=== PATIENT | male | born 1950 | race Caucasian/White ===

== ENCOUNTER 2023-05-29 07:26 | Outpatient (OUT) | payer MEDICARE, OTHER, SELFPAY ==
--- NOTE | 2023-05-29 | PCN_ITS ---
CARDIAC STRESS TEST Requesting Physician:? Francesco Harvey M.D. Procedure Date:? 05/29/2023 PERFORMING PHYSICIAN:? Dank Castillo M.D. INDICATION:? Dyspnea on exertion, atrial fibrillation. STRESS TEST PROTOCOL:? Lexiscan stress test. RESTING HEART RATE:? 79 MAX HEART RATE:? 107 RESTING BLOOD PRESSURE:? 140/82 MAX BLOOD PRESSURE:? 144/82 RESTING EKG:? Abnormal, atrial fibrillation, incomplete right bundle branch block, non-specific ST and T changes. CONCLUSIONS: 1.? Baseline EKG is abnormal.? Patient is noted to be in atrial fibrillation with incomplete right bundle branch block and non-specific ST and T changes. 2.? No definite EKG changes meeting the criteria for ischemia post Lexiscan infusion. 3.? Please refer to separately interpreted and reported myocardial perfusion imaging. [facility]
--- NOTE | 2023-05-29 07:40 | NM_ITS ---
Patient: VINAYAK ANN Exam Date: 05/29/2023 : 1950 Gender:M Ordering : DR NICOLETTE VALDEZ M.D. Admission #: [id number] Family : DR BRADEN HICKMAN M.D. Order #: [id number] CLICK HERE TO VIEW EXAM RADIOLOGY REPORT PROCEDURE: NM YAMILE PERF SPECT REST STR COMPARISON: None. INDICATIONS: Shortness of breath TECHNIQUE: Exam Description: Stress/Rest one day protocol gated SPECT Rest Imagin.1 mCi Tc-99m Cardiolite IV on 05/29/2023 Stress Imaging 30.3 mCi Tc-99m Cardiolite IV on 05/29/2023 Exercise Protocol: 0.4 mg Lexiscan given IV Heart Rate (bpm): Rest: 79 Max: 107 PMHR: 72 Blood Pressure: Rest: 140/82 Max: 144/82 Symptoms: Rest and peak stress ECG findings were normal and the exercise portion of the study was normal per attending physician Dr. Castillo . For more details please see separate cardiac stress test report. FINDINGS: QUALITY OF STUDY: Good. PERFUSION DEFECT: LOCATION: Basal inferior. Mid-inferior. [place]. SIZE: Medium (3-4 segments). SEVERITY: Mild. TYPE: Persistent. WALL MOTION: Normal. LV SIZE: Normal. 98 mL. TID / TCD: None; 0.9 LVEF: Normal. Calculated EF 64%. SUMMARY: Myocardial perfusion imaging study has ABNORMAL findings. CONCLUSION: 1. Moderate size area of mild to moderate decreased uptake on stress images in the inferior wall stable on rest imaging. Fixed defect versus diaphragmatic attenuation artifact 2. No reversible ischemia 3. Normal exercise test Dictated by: Bruno Burton MD on 05/30/2023 at 09:52 Approved by: Bruno Burton MD on 05/30/2023 at 09:54
[2023-05-29] MEDS: REGADENOSON 0.4 MG/5 ML SYRINGE IV (09:26)
--- NOTE | 2023-05-29 11:24 | CA_ITS ---
Patient: VINAYAK ANN. Exam Date: 05/29/2023 : 1950 Gender:M Ordering : DR NICOLETTE HARVEY M.D. Admission #: [id number] Family : DR BRADEN HICKMAN M.D. Order #: [id number] CLICK HERE TO VIEW EXAM ECHOCARDIOGRAM REPORT PROCEDURE: CA ECHO DOPPLER COMPLETE INDICATIONS: Atrial fibrillation, shortness of breath, hypertension COMPARISON: None. DESCRIPTION: COMPLETE ECHOCARDIOGRAM Real-time transthoracic echocardiography with 2D, M-mode, spectral and color flow Doppler performed. QUALITY: Technical quality was good. LEFT VENTRICLE: Normal chamber size. Mild concentric left ventricular hypertrophy. Normal systolic function. LV EF: Normal left ventricular ejection fraction, (55%). DIASTOLIC: Not adequately assessed due to heart rhythm. ATRIAL SEPTUM: LEFT ATRIUM: Moderate dilatation. RIGHT ATRIUM: Moderate dilatation. RIGHT VENTRICLE: Mild dilatation. Normal right ventricular systolic function. TRICUSPID VALVE: Normal mobility and thickness. No stenosis with trivial regurgitation. Doppler studies reveal mildly (35-45) elevated right sided pressures. RVSP 42 mmHg MITRAL VALVE: Normal mobility and thickness. No evidence of mitral valve stenosis. There is no mitral annular calcification. Mild mitral regurgitation. AORTIC VALVE: Normal trileaflet appearance. Mildly calcified aortic valve. Normal leaflet mobility. No evidence of aortic valve stenosis. No aortic regurgitation. AORTIC ROOT: Normal diameter and appearance. PULMONIC VALVE: Normal thickness and mobility. No stenosis. Mild regurgitation. PERICARDIUM: No evidence of pericardial effusion. IVC: Not well visualized. PLEURA: CONCLUSION: 1. Mild concentric left ventricular hypertrophy with normal systolic function. LVEF is 55%. 2. Mildly dilated right ventricle with normal systolic function. 3. Moderate biatrial dilatation. 4. Mild mitral regurgitation. 5. Mildly elevated right-sided pressures. Adult Echocardiography Procedure Report Left Ventricle LVEDD (3.7 - 5.6 cm): 5.66 cm LVESD (2.2 - 4.0 cm): 3.90 cm LVIVS thickness (0.6 - 1.2 cm): 1.26 cm LVPW thickness (0.5 - 1.0 cm): 1.16 cm e': 0.10 m/s E - e': 9.67 LVOT Max Gradient: 0.73 mm[Hg] LVOT Area (cm2): 0.43 m/s Peak Velocity (LVOT): 0.43 m/s LVOT Diameter 2.54 cm Left Atrium LA Volume Index (2D A2C): 45.19 ml/m2 Left Atrium Systolic Dimension: 4.97 cm Mitral Valve MV E to A Ratio: 3.01 Mitral Valve A-Wave Peak Velocity: 0.31 m/s Mitral Valve E-Wave Peak Velocity: 0.94 m/s Right Ventricle Aorta AO Root Diam: 4.00 cm Ascending Ao Diam: 3.03 cm Aortic Valve AoV Area (Peak Elan): 1.98 cm2, 1.98 cm2 Peak Velocity(Antegrade Flow): 1.10 m/s Peak Gradient(Antegrade Flow): 4.80 mm[Hg] Tricuspid Valve Peak Velocity (Regurgitant Flow): 2.88 m/s, 2.92 m/s Pulmonic Valve Peak Velocity: 0.83 m/s Peak Gradient: 2.62 mm[Hg], 2.95 mm[Hg] Right Atrium Right Atrium Systolic Pressure: 57.62 ml, 57.62 ml Dictated by: Nicolette Harvey M.D. on 05/30/2023 at 18:46 Approved by: Nicolette Harvey M.D. on 05/30/2023 at 18:49
== END 2023-05-29 07:27 | disposition home or self-care (01) ==
LOC: NM 07:29
PROVIDERS: PCP Internal Medicine; Visit Provider Internal Medicine Interventional Cardiology
DX: I48.0 Paroxysmal atrial fibrillation (principal); R06.02 Shortness of breath; I45.10 Unspecified right bundle-branch block; R94.39 Abnormal result of other cardiovascular function study; I34.0 Nonrheumatic mitral (valve) insufficiency; I51.7 Cardiomegaly
CPT/HCPCS: 78452; 93017; 93306; A9500; J2785

== ENCOUNTER 2023-10-12 07:58 | Outpatient (OUT) | payer MEDICARE, OTHER, SELFPAY ==
[2023-10-12 08:36] LABS: Basophils Absolute Auto 0.1 10^3/uL (0.0-0.1); Basophils Percent Auto 0.9 % (0.2-2.0); Eosinophils Absolute Auto 0.2 10^3/uL (0.0-0.7); Eosinophils Percent Auto 2.3 % (0.9-7.0); Immature Granulocytes Abs Auto 0.01 10^3/uL (0.00-0.03); Immature Granulocytes Pct Auto 0.2 % (0.0-0.5); Lymphocytes Absolute Auto 1.6 10^3/uL (1.2-3.8); Mean Corpuscular Hemoglobin 30.1 pg (25.9-34.0); Mean Corpuscular Volume 94.2 fL (80.0-94.0); Mean Platelet Volume 9.8 fL (9.5-13.5); Monocytes Absolute Auto 0.7 10^3/uL (0.3-0.8); Monocytes Percent Auto 11.1 % (1.7-12.0); Neutrophils Percent Auto 61.5 % (43.0-75.0); Platelet Count 252 10^3/uL (150-450); Red Blood Count 5.31 10^6/uL (4.70-6.10); Red Cell Distribution Width 13.4 % (11.0-15.0); White Blood Count 6.5 10^3/uL (4.0-11.0)
[2023-10-12 09:32] LABS: BUN Creatinine Ratio 12.2; Calcium 8.8 mg/dL (8.5-10.1); Carbon Dioxide 23.4 mmol/L (21.0-32.0); Chloride 106 mmol/L (98-107); Estimated GFR (African America 57 (>=60); Estimated GFR (Non-African Ame 47 (>=60); Glucose 139 mg/dL (74-106); Magnesium 2.3 mg/dL (1.8-2.4); Potassium 4.4 mmol/L (3.5-5.1); Sodium 141 mmol/L (136-145)
== END 2023-10-12 07:59 | disposition home or self-care (01) ==
LOC: LAB 08:01
PROVIDERS: PCP Internal Medicine; Visit Provider Internal Medicine Cardiovascular Disease
DX: I48.91 Unspecified atrial fibrillation (principal)
CPT/HCPCS: 36415; 80048; 83735; 85025

== ENCOUNTER 2023-12-20 07:56 | Outpatient (OUT) | payer MEDICARE, OTHER, SELFPAY ==
--- OUTSIDE RECORDS SUMMARY | 2023-12-20 07:58 | XMS_ITS | CCD ---
Author Name Unknown Address [address] [place] [address] Organization [facility] Care Team Providers Care Csr Name Role Phone PHYSICIAN, DEFAULT Unavailable Unavailable PHYSICIAN, DEFAULT Unavailable Unavailable PHYSICIAN, DEFAULT Unavailable Unavailable PHYSICIAN, DEFAULT Unavailable Unavailable SUGAR CORRALESA Admitting Unavailable BELÉN CORRALES Attending Unavailable VICK, DR FELICIANO Primary Care Unavailable JARROD, DR MODE Souza Consulting Unavailable BELÉN CORRALES Consulting Unavailable SUZANNA, RAMON Admitting Unavailable RAMON BRISENO Attending Unavailable VICK, DR FELICIANO Primary Care Unavailable COHOCTON, DR LUIS MANUEL [place]rbina Consulting Unavailable SUZANNARAMON Consulting Unavailable DARREN MCMULLEN Attending Unavailable BRADEN HICKMAN Attending Unavailable MEHUL, PANTERA Attending Unavailable MEHUL, PANTERA Attending Unavailable MEHUL, PANTERA Admitting Unavailable MEHUL, PANTERA Attending Unavailable MEHUL, PANTERA Referring Unavailable MOUKARBNICOLETTE SMITH Attending Unavailable Allergies Allergy Classification Reported Allergen(s) Allergy Type Date of Onset Reaction(s) Facility (2 sources) Penicillins; Translations: [PENICILLINS] Drug allergy (disorder) 12-27-2020 [facility] Repository Problems Active Problems Problem Classification Problem Date Documented Da te Episodic/Chronic Aortic; peripheral; and visceral artery aneurysms (4 sources) Abdominal aortic aneurysm, without rupture; Translations: [ABDOMINAL AORTIC ANEUR W/O RUPTURED] Onset: 01-14-2022 Chronic Cardiac dysrhythmias (2 sources) Paroxysmal atrial fibrillation; Translations: [Paroxysmal atrial fibrillation] Onset: 12-04-2022 Chronic Disorders of lipid metabolism (2 sources) Mixed hyperlipidemia; Translations: [Mixed hyperlipidemia] Onset: 12-04-2022 Chronic Essential hypertension (2 sources) Essential (primary) hypertension; Translations: [Essential (primary) hypertension] Onset: 05-22-2023 Chronic Unclassified (3 sources) ABDOMINAL AA W/O RUPTURE UNSPCIFIED; Translations: [ABDOMINAL AA W/O RUPTURE UNSPCIFIED] Onset: 01-08-2023 Unclassified (2 sources) Longstanding persistent atrial fibrillation; Translations: [Longstanding persistent atrial fibrillation] Onset: 09-17-2023 Past or Other Problems Problem Classification Problem Date Documented Da te Episodic/Chronic Other lower respiratory disease (2 sources) Shortness of breath; Translations: [Shortness of breath] Onset: 05-22-2023 Episodic Residual codes; unclassified (2 sources) Localized edema; Translations: [Localized edema] Onset: 05-22-2023 Episodic Unclassified (1 source) ABDOMINAL AA W/O RUPTURE UNSPCIFIED; Translations: [ABDOMINAL AA W/O RUPTURE UNSPCIFIED] Onset: 12-27-2022 Results Test Name Value Interpretation Reference Range Facility Prep for Procedureon 024 Prep for Procedure [id number]/03/1950 Provider Department Center 12/12/2023 Krishna-CLAIRE ARTEAGA [facility] V[facility] LAB ID [facility] Family History Problem Relation Age of Onset Heart attack Father Coronary artery disease Father Coronary artery disease Brother Stroke Brother Family Status - Relation Status Age at Father Brother Normal [facility] Office Visiton 12-11-2023 Follow-up visit [id number]/03/1950 Provider Department Center 12/11/2023 241-PANTERA TOMLIN LUZ [facility] Family History Problem Relation Age of Onset Heart attack Father Coronary artery disease Father Coronary artery disease Brother Stroke Brother Family Status - Relation Status Age at Father Brother Level of Service:45440 UT OFFICE/OUTPATIENT ESTABLISHED HIGH MDM 40 MIN Normal [facility] Orders Onlyon 12-11-2023 Orders Only [id number] 1950 Provider Department Center 12/11/2023 ISMAEL BOLES LUZ MAR[facility] Family History Problem Relation Age of Onset Heart attack Father Coronary artery disease Father Coronary artery disease Brother Stroke Brother Family Status - Relation Status Age at Father Brother Normal [facility] Orders Onlyon 10-08-2023 Orders Only [id number]/03/1950 M Date Provider Department Center 10/08/2023 SHEILA EDEN [facility] Family History Problem Relation Age of Onset Heart attack Father Coronary artery disease Father Coronary artery disease Brother Stroke Brother Family Status - Relation Status Age at Father Brother [facility] Telemedicineon 09-11-2023 Telemedicine [id number] Vinayak Madrigal 1950 M Date Provider Department Center 09/11/2023 PANTERA ORTEGA LUZ MARIA Vel[facility] Family History Problem Relation Age of Onset Heart attack Father Coronary artery disease Father Coronary artery disease Brother Stroke Brother Family Status - Relation Status Age at Father Brother Level of Service:27411 UT PHYS/QHP TELEPHONE EVALUATION 11-20 MIN [facility] 36on 06-03-2023 36 Please tell him the echo and stress test from 05/29/2023 were ok. Please refer him to Dr Pantera Tomlin for consideration of AF ablation. [facility] Telephoneon 06-03-2023 Telephone [id number] Vinayak Madrigal 1950 M Date Provider Department Center 06/03/2023 NICOLETTE PETERS LUZ MARIA Velazquez Family History Problem Relation Age of Onset Heart attack Father Coronary artery disease Father Coronary artery disease Brother Stroke Brother Family Status - Relation Status Age at Father Brother [facility] Office Visiton 05-22-2023 Follow-up visit [id number] Bonilla 1950 M Date Provider Department Center 05/22/2023 NICOLETTE PETERS LUZ MARIA eVlazquez Family History Problem Relation Age of Onset Heart attack Father Coronary artery disease Father Coronary artery disease Brother Stroke Brother Family Status - Relation Status Age at Father Brother Level of Service:68136 UT OFFICE/OUTPATIENT ESTABLISHED MOD MDM 30-39 MIN Reason for Visit and Comments: Follow-up [294935] - 6 month follow up [facility] US ABD AORTA DIAGNOSTICon US ABD AORTA DIAGNOSTIC EXAM: US ABD AORTA DIAGNOSTIC HISTORY: Abdominal aortic aneurysm without rupture. TECHNIQUE: Ultrasound was performed of the abdominal aorta. COMPARISON: Ultrasound abdominal aorta 01/14/2022 FINDINGS: AORTA: Fusiform dilation of the distal aorta, 3.0 cm in diameter. OTHER: Mild dilation of common iliac arteries, 2.1 cm on right, 1.8 cm on left. IMPRESSION: 1. Stable fusiform aneurysmal dilation of infrarenal aorta, 3.0 cm. 2. 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 Electronically authenticated by: MODE GARAY Date: 2022-12-27 15:45 Normal [facility] 36on 12-20-2022 36 Pt did not have bps will call back january 03 Normal [facility] US ABD AORTA DIAGNOSTICon US ABD AORTA DIAGNOSTIC EXAMINATION: US ABD AORTA DIAGNOSTIC HISTORY: Abdominal aortic aneurysm without rupture COMPARISON: No relevant comparison available. TECHNIQUE: Ultrasound examination of the retroperitoneal area was performed, with a focused evaluation of the abdominal aorta. FINDINGS: Extensive diffuse soft and calcific atherosclerotic plaque with small fusiform distal aortic aneurysm Proximal aorta: 2.4 x 2.8 cm Mid aorta: 2.1 x 2.3 cm Distal aorta: 2.9 x 3.0 cm Right common iliac artery: 2.2 x 2.3 cm Left common iliac artery: 2.0 x 2.5 cm IMPRESSION: Moderate diffuse atherosclerosis with fusiform distal aortic aneurysm measuring 3.0 cm Electronically authenticated by: LUIS MANUEL MCCORMICK Date: 2022-01-16 07:21 Normal [facility] Coding Summary.on 02-12-2019 Coding Summary. CODING DATE: 02/12/2019 FINAL [facility] STATUS: Home (Routine DC) PAYOR: Medicare APC DESCRIPTION 5374 Level 4 Urology and Related Services ADMIT DX: REASON FOR VISIT DX: N40.1 Benign prostatic hyperplasia with lower urinary tract symptoms FINAL DX: PRINCIPAL: N40.1 Benign prostatic hyperplasia with lower urinary tract symptoms SECONDARY: R35.0 Frequency of micturition R35.1 Nocturia R39.12 Poor urinary stream N39.43 Post-void dribbling I10 Essential (primary) hypertension I48.91 Unspecified atrial fibrillation E11.9 Type 2 diabetes mellitus without complications 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 However, the narrative phrase printed from the coding software may appear abbreviated, or result in slightly different terminology. Coded By: Analia Le Date Saved: 02/12/2019 12:49 pm Normal [facility] Main OR Intraoperative Recor romaine 02-06-2019 Main OR Intraoperative Record IntraOp Document Type FTURO Summary Primary Physician: Eric Elizabeth Jr., MD Finalized Date/Time: 02/06/19 14:00:49 Pt. Name: VINAYAK MADRIGAL Logan /Sex: 1950 Male Med Rec #: [id number] Physician: Eric Elizabeth Jr., MD Financial #: [id number] Pt. Type: O Room/Bed: / Admit/Disch: 02/06/19 12:31:57 - Institution: Case Times FTURO Entry 1 Patient Times In Room 02/06/19 13:43:00 Out Room 02/06/19 14:02:00 Procedure Times Start 02/06/19 13:47:00 Stop 02/06/19 13:56:00 Anesthesia Times Last Modified By: Nathaly TEJADA, MELYOR, Jessica 02/06/19 14:00:08 Case Attendance FTURO Entry 1 Entry 2 Entry 3 Case Attendee Eric Elizabeth Jr., MD RN, CNOR, Watha CST, Ping Lopez Role Performed Surgeon - Primary Diamond Cleaver - Primary Scrub - Primary Time In 02/06/19 13:43:00 02/06/19 13:43:00 02/06/19 13:43:00 Time Out 02/06/19 14:02:00 02/06/19 14:02:00 02/06/19 14:02:00 Procedure CYSTOSCOPY LOCAL CYSTOSCOPY LOCAL CYSTOSCOPY LOCAL REZUM(.) REZUM(.) REZUM(.) Comments Last Modified By: Nathaly RN, CNOR, Nathaly RN, MELYOR, Nathaly RN, MELYOR, Jessica 02/06/19 Jessica 02/06/19 Jessica 02/06/19 14:00:09 14:00:09 14:00:09 Surgical Procedures FTURO Entry 1 Procedure Description Procedure CYSTOSCOPY LOCAL REZUM Modifiers . Surgeon Description cysto with rezum Primary Procedure Yes Primary Surgeon Eric Elizabeth Jr., MD Start 02/06/19 13:47:00 Stop 02/06/19 13:56:00 Anesthesia Type Local Surgical Service Urology Wound Class 2 - Clean-Contaminated Last Modified By: DREW Andersen RN, Ruthann 02/06/19 14:00:11 General Case Data FTURO Pre-Care Text: Classifies surgical wound, implements aseptic technique, initiates traffic control Entry 1 Case Information OR URO 1 FT Case Level None Wound Class 2 - Clean-Contaminated Specialty Urology Preop Diagnosis BPH WITH LUTS Postop Same As Preop Yes Postop Diagnosis BPH WITH LUTS Outcomes Met? Yes Last Modified By: DREW Andersen RN, Ruthann 02/06/19 12:40:38 Post-Care Text: The patient is free from signs and symptoms of infection EU IntraOp - FTURO Pre-Care Text: Implements protective measures prior to operative or invasive procedure, confirms identity before the operative or invasive procedure, verifies operative procedure, surgical site, and laterality Entry 1 EU Perioperative Protocols Procedure(s) CYSTOSCOPY LOCAL Patient Identity Birthday, ID Band REZUM(.) Verified (select at Check, Patient least 2): Participation Consents / H and P HandP, Surgery/Procedure Operative Site N/A Verified Consent Marking Verified Surgical Site Yes Laterality Verified n/a Verified Procedure Verified Yes Correct Patient Yes Position Verified Availability Equipment, Medication Time Out Glenn Hoyt MD, Eric Nguyen, Verified (If Participants DREW Andersen RN, Applicable) Ana Lopez CST, Ping Flores Time Out Complete 02/06/19 13:46:00 Allergies Reviewed? Yes Allergies Reviewed Self/Patient With Body Position Low Lithotomy Prep Area penis Prep Agents Betadine Solution Skin. Condition Unable to Visualize Additional None Specimens Collected Vitals - EU Blood Pressure Pulse Respirations SPO2 EBL 0 IandO - EU Total Intake 0 mL Total Output 0 mL Outcomes Met? Yes Last Modified By: DREW Andersen RN, Ruthann 02/06/19 13:49:15 Post-Care Text: The patient is free from signs and symptoms of injury caused by extraneous objects Case Comments Finalized By: DREW Andersen RN, Ruthann Document Signatures Signed By: DREW Andersen RN, Ruthann 02/06/19 14:00 DREW Andersen RN, Ruthann 02/06/19 14:00 Normal [facility] Main OR Preoperative Recordo n 02-06-2019 Main OR Preoperative Record Holding Area Document Type FTURO Summary Primary Physician: Eric Elizabeth Jr., MD Finalized Date/Time: 02/06/19 13:49:45 Pt. Name: VINAYAK MADRIGAL /Sex: 1950 Male Med Rec #: [id number] Physician: Eric Elizabeth Jr., MD Financial #: [id number] Pt. Type: O Room/Bed: / Admit/Disch: 02/06/19 12:31:57 - Institution: Case Times Holding FTURO Pre-Care Text: Verifies consent for planned procedure, identifies individual values and wishes concerning care, includes family members in perioperative teaching Secures patient's records' belongings, and valuables, maintains patient's dignity and privacy, and maintains patient confidentiality Entry 1 In Holding 02/06/19 12:47:00 Outcomes Met? Yes Last Modified By: Sharon Lawler LPN 02/06/19 12:47:20 Post-Care Text: The patient participates in decisions affecting his or her perioperative plan of care The patient's right to privacy is maintained Surgery Checklist FTURO Entry 1 Patient Birthday, ID Band Procedure History and Physical, Identification: Check, Patient Verification: Surgical Consent, With Participation Patient NPO after Midnight: n/a Personal Items: Dentures, Glasses, Jewelry Personal Items watch, ring Complaints of Pain: No Comment: Skin Integrity Intact, [place], Warm, & Dry Vitals - EU Blood Pressure 124/74 Pulse 60 bpm Respirations 18 br/min SPO2 RN Reviewed Yes Last Modified By: DREW Andersen RN, Ruthann 02/06/19 13:49:43 Finalized By: DREW Andersen RN, Ruthann Document Signatures Signed By: Sharon Lawler LPN 02/06/19 12:50 DREW Andersen RN, Ruthann 02/06/19 13:49 Normal [facility] Operative Reporton 9 Operative Report Patient: VINAYAK MADRIGAL Age: 68 years Sex: Male : 1950 Associated Diagnoses: None Author: Eric Elizabeth Jr., MD Procedure Operative Information Details: Date/ Time: 02/06/19 13:57:00. Pre-Op Dx: BPH w/ LUTS - N40.1. Post-Op Dx: Same. Anesthesia Type: Local. Procedure: REZUM ablation of the prostate. Complications: None. Risks/Benefits/Inform ed Consent: Surgical risks, benefits, details of the procedure have been explained to the patient, Full informed consent has been obtained. Indications: The patient has BPH with LUTS and presents for the REZUM trans-urethral water vapor ablation of the prostate, He understands the risks, benefits, details of this procedure including but not limited to bleeding, infection, continued difficulties urinating, blood in the semen, pain during urination, increased urinary frequency, Despite these risks, among others, he wishes to proceed. Intraoperative Information Prepped: The patient is brought back to the operative suite, The patient is placed in the supine position, 10 cc of 2% viscous Xylocaine jelly prior to the catheterization, The bladder is catheterized with a 16 Fr straight catheter, 60 cc of 1% xylocaine solution is instilled followed by 10 cc of 2% viscous Xylocaine jelly, After waiting approximately 20 minutes, he is positioned in the modified dorso-lithotomy position and prepped in the usual fashion, The 30-degree cystoscope lens is placed, The anterior urethra, membranous urethra, and prostatic urethra is visualized. Procedure: The bladder demonstrates no tumor or stones, 5 targeted treatments were delivered to the prostate, staying at least 1 cm from the bladder neck, Each location is treated for 9 seconds, per protocol, 4 treatments were given into the lateral lobes by 1 cm, 1 treatments administered to the median lobe, The bladder is again inspected and is free of injury and is clear of blood clots, A Darnell catheter is placed, the balloon inflated, and leg bag attached. Specimens Removed: None. Devices Implanted: None. Postoperative Information Discharge: The patient tolerates the procedure well and is discharged home in satisfactory condition, Discharge instructions are provided. Normal [facility] Comment on above: Result Comment: Elec tronically Signed By: Glenn Hoyt MD, Eric Nguyen\.nataliya\Date and Time Signed: 02/06/19 13:57 EDT Encounters Encounter Date Encounter Type Care Provider Facility Start: 12-11-2023 End: 12-11-2023 [facility] Start: 11-20-2023 End: 11-20-2023 ambulatory DARREN Brito BENEDICT Not Available Start: 10-15-2023 End: 10-15-2023 ambulatory [facility] Start: 09-20-2023 End: 09-20-2023 ambulatory BRADEN HICKMAN Not Available Start: 09-11-2023 End: 09-11-2023 ambulatory [facility] Start: 05-22-2023 End: 05-22-2023 ambulatory NICOLETTE VALDEZ [facility] Start: 12-27-2022 End: 12-28-2022 ambulatory BELÉN CORRALES Facility:[facility] Start: 01-14-2022 End: 01-15-2022 ambulatory RAMON BRISENO Facility:[facility] Start: 07-15-2018 End: 07-16-2018 Patient encounter DEFAULT PHYSICIAN Facility[facility] Start: 06-11-2018 End: 06-12-2018 Patient encounter DEFAULT PHYSICIAN [facility] Payers Date Payer Category Payer [employer] ( and others) [id number] 1959 Medicare [id number] 1950 Unknown [id number] 1950 Unknown [id number] 1950 Unknown [id number] 1950 Unknown [id number] Unknown Progress note 12-11-2023 Note Date & Type Note Facility 12-11-2023 Note ID Electrophysiology Consult Note Reason for visit: Afib 12/11/23 patient was loaded with amiodarone and subsequently brought for cardioversion on 10/15/2023 but he was noted to be in sinus rhythm. Today he is back in atrial flutter with varying ventricular rate EKG 12/11/2023 flutter with very ventricular rate Prior HPI: Vinayak Madrigal is a 73 y.o. 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 Pt feels tired. Not DCCV before. Of late, he noticed fatigue which has been progressive. No acute CP. PMH: Past Medical History: Diagnosis Date Aneurysm (CMS/HCC) Atrial fibrillation (CMS/HCC) Diabetes mellitus (CMS/HCC) Hyperlipidemia Hypertension PSH: Past Surgical History: Procedure Laterality Date APPENDECTOMY SINUS SURGERY VASECTOMY SH: Social Determinants of Health Tobacco Use: Medium Risk (10/17/2023) Patient History Smoking Tobacco Use: Former Smokeless Tobacco Use: Never Passive Exposure: Not on file Alcohol Use: Not on file Financial Resource Strain: Not on file Food Insecurity: Not on file Transportation Needs: Not on file Physical Activity: Not on file Stress: Not on file Social Connections: Not on file Intimate Partner Violence: Not on file Depression: Not on file Housing Stability: Not on file Utilities: Not on file Allergies: Allergies Allergen Reactions Penicillins Rash and Unknown Weight: 109kg Visit Vitals BP 129/87 (BP Location: Left arm, Patient Position: Sitting) Pulse 88 Ht 1.829 m (6') Wt 109 kg (240 lb) SpO2 94% BMI 32.55 kg/m??? Smoking Status Former BSA 2.35 m??? Meds: Current Outpatient Medications on File Prior to Visit Medication Sig Dispense Refill amiodarone (Pacerone) 200 mg tablet Take 2 tablets (400 mg) by mouth in the morning and at bedtime for 14 days, THEN 1 tablet (200 mg) in the morning. (Patient taking differently: 200mg daily) 116 tablet 0 amLODIPine-benazepriL (Lotrel) 10-20 mg capsule Take 1 capsule by mouth in the morning. apixaban (Eliquis) 5 mg tablet Take 5 mg by mouth in the morning and at bedtime. atorvastatin (Lipitor) 40 mg tablet Take 1 tablet (40 mg) by mouth in the morning. 90 tablet 3 carvedilol (Coreg) 12.5 mg tablet Take 1 tablet by mouth with breakfast and with evening meal. celecoxib (CeleBREX) 200 mg capsule Take 200 mg by mouth in the morning. As needed fluticasone (Flonase) 50 mcg/actuation nasal spray Administer 50 sprays into each nostril in the morning. glimepiride (Amaryl) 2 mg tablet Take 2 mg by mouth 2 times daily. linagliptin-metformin (Jentadueto XR) 2.5-1,000 mg tablet, IR - ER, biphasic 24hr Jentadueto XR 2.5 mg-1,000 mg tablet, extended release multivitamin with minerals tablet Take 1 tablet by mouth in the morning. No current facility-administered medications on file prior to visit. ROS: Review of Systems Constitutional: Positive for malaise/fatigue and night sweats. Respiratory: Positive for cough. Musculoskeletal: Positive for muscle weakness. Neurological: Positive for excessive daytime sleepiness ( sometimes ) and light-headedness. All other systems reviewed and are negative. Physical Exam: Constitutional General Appearance: well-nourished, well-developed, appears stated age Level of Distress: comfortable Psychiatric Mental Status: alert, normal affect Orientation: oriented to time, place, and person Insight: good judgement Eyes Lids and Conjunctivae: non-injected, no xanthelasma ENMT Ears: no lesions on external ear Nose: no lesions on external nose Oropharynx: no cyanosis, no pallor Neck Neck: supple, trachea midline Carotid Arteries: bilateral normal upstroke, no bruits Jugular Veins: normal jugular venous pressure Thyroid: not enlarged Lungs Respiratory Effort: unlabored Chest Exam: normal curvature, no thoracic deformity Auscultation: clear, no wheezing, no rales, no rhonchi Cardiovascular Rate And Rhythm: regular Heart Sounds: normal S1, normal s2, no gallop Systolic Murmur: not heard Diastolic Murmur: not heard Extremities: no cyanosis, no edema, no peripheral signs of emboli Peripheral Pulses Radial Pulse: normal Abdomen Inspection and Palpation: soft, non distended, no bruit, non tender Musculoskeletal Inspection: no joint swelling Neurologic Gait: normal gait Skin Inspection and Palpation: warm and dry Nails: no clubbing Labs: @LABRESULTS@ No results found for: CHOLESTEROL TOTAL , HDL , LDL CALC , LDL DIRECT , TRIGLYCERIDES , TSH , T3 TOTAL , T4 TOTAL , THYROID PEROXIDASE AB , BNP EKG: Encounter Date: 10/15/23 Electrocardiogram, 12-lead Result Value Ventricular Rate 81 Atrial Rate 81 UT Interval 202 QRS DURATION 114 QT Interval 436 QTC CALCULATION(BAZETT) 506 P Burney 51 R-Burney 0 T Wave Burney 38 Impression Sinus rhythm with occasional Premature ventricular (more content not included)... [facility] Clinical Note 10-15-2023 Note Date & Type Note Facility 10-15-2023 Note EKG completed and pt in NSR. Dr. Tomlin cancelled procedure. [facility] Progress note 09-11-2023 Note Date & Type Note Facility 09-11-2023 Note [facility] Electrophysiology Consult Note Reason for visit: Afib Date of Telehealth Visit: 09/11/2023 The patient was notified that using 3rd alliance party telecommunication application (e.g., [employer]) is not HIPPA compliant and may carry some privacy risks. Yes The visit was conducted [id number] with the use of audio and video technology [email or web address] between patient and provider for a virtual visit. Verbal consent to provide and bill this service was obtained on 09/11/2023. No signature was obtained due to the COVID-19 pandemic. Patient Location: Patient Home I spent 15 minutes of total time on the day of the visit. This time was spent preparing for the visit, obtaining and reviewing any outside history/data, taking a history, performing an exam/evaluation, counseling and educating patient/family about the diagnosis and plan, performing medical decision making, referring to and communicating with other health care referrals, independently interpreting results and documenting in the EMR, and coordinating care. Please see the additional documentation in this note for specific details. There are no diagnoses linked to this encounter. HPI: Vinayak Madrigal is a 73 y.o. 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 Pt feels tired. Not DCCV before. Of late, he noticed fatigue which has been progressive. No acute CP. PMH: Past Medical History: Diagnosis Date Aneurysm (CMS/HCC) Atrial fibrillation (CMS/HCC) Diabetes mellitus (CMS/HCC) Hyperlipidemia Hypertension PSH: Past Surgical History: Procedure Laterality Date APPENDECTOMY SINUS SURGERY VASECTOMY SH: Social Determinants of Health Tobacco Use: Medium Risk (05/22/2023) Patient History Smoking Tobacco Use: Former Smokeless Tobacco Use: Never Passive Exposure: Not on file Alcohol Use: Not on file Financial Resource Strain: Not on file Food Insecurity: Not on file Transportation Needs: Not on file Physical Activity: Not on file Stress: Not on file Social Connections: Not on file Intimate Partner Violence: Not on file Depression: Not on file Housing Stability: Not on file Allergies: Allergies Allergen Reactions Penicillins Rash and Unknown Weight: No weight available Visit Vitals Smoking Status Former Meds: Current Outpatient Medications on File Prior to Visit Medication Sig Dispense Refill amLODIPine-benazepriL (Lotrel) 10-20 mg capsule Take 1 capsule by mouth in the morning. apixaban (Eliquis) 5 mg tablet Take 5 mg by mouth in the morning and at bedtime. atorvastatin (Lipitor) 40 mg tablet Take 1 tablet (40 mg) by mouth in the morning. 90 tablet 3 carvedilol (Coreg) 12.5 mg tablet Take 1 tablet by mouth with breakfast and with evening meal. celecoxib (CeleBREX) 200 mg capsule As needed fluticasone (Flonase) 50 mcg/actuation nasal spray Administer 50 sprays into each nostril in the morning. FreeStyle Lancets 28 gauge FreeStyle Lite Strips strip linagliptin-metformin (Jentadueto XR) 2.5-1,000 mg tablet, IR - ER, biphasic 24hr Jentadueto XR 2.5 mg-1,000 mg tablet, extended release multivitamin with minerals tablet Take 1 tablet by mouth in the morning. No current facility-administered medications on file prior to visit. ROS: Cardio Basic Cardiovascular Symptoms: no lightheadedness, no leg edema, no syncope, no orthopnea, no PND, no claudication, Constitutional Constitutional: no fever, no night sweats, no significant weight gain, no significant weight loss, no exercise intolerance Eyes Eyes: no dry eyes, no irritation, no vision change ENMT Ears: no difficulty hearing, no ear pain Nose: no frequent nosebleeds, Mouth/Throat: no sore throat, no bleeding gums, no snoring, no dry mouth, no mouth ulcers, no oral abnormalities, no teeth problems Respiratory Respiratory: no cough, no wheezing, no coughing up blood, no sleep apnea Musculoskeletal Musculoskeletal: no muscle aches, no muscle weakness, joint pain+, no back pain, no swelling in the extremities Integumentary Skin no rash, no ulcer, no varicosities, no discoloration, no pruritus Neurologic Neurologic: no loss of consciousness, no weakness, no numbness, no seizures, no dizziness, no headaches Psychiatric Psych: no depression, feeling safe in relationship, no alcohol abuse, Hematologic/Lymphatic Hematologic/Lymphatic no swollen glands, no bruising Physical Exam: Labs: @LABRESULTS@ No results found for: CHOLESTEROL TOTAL, HDL, LDL CALC, LDL DIRECT, TRIGLYCERIDES, TSH, T3 TOTAL, T4 TOTAL, THYROID PEROXIDASE AB, BNP, BNP, BNP EKG: No results found for this or any previous visit (from the past 4464 hour(s)). Echo: Stress test: Coronary angiogram: @CATH@ Diagnostic Imaging: No images are attached to the encounter. Assessment and Plan: - Persistent AF: Given pt has not been offered DCCV, will try to load with Amio and then (more content not included)... [facility] Progress note 05-22-2023 Note Date & Type Note Facility 05-22-2023 Note ID Cardiology - [facility] Subjective Vinayak Madrigal is a 72 y.o. year old male patient being seen for Follow-up (6 month follow up ) Patient Active Problem List Diagnosis Allergic rhinitis due to allergen Atrial fibrillation (CMS/HCC) Benign essential hypertension Cardiac arrhythmia Cardiomegaly Chronic pansinusitis Cervical spondylosis Cervical radiculopathy Diabetes mellitus (CMS/HCC) Diastasis of muscle Diastolic dysfunction Displacement of cervical intervertebral disc Dysmetabolic syndrome X Hyperglycemia due to type 2 diabetes mellitus (CMS/HCC) Impingement syndrome of shoulder region Mixed hyperlipidemia Pure hypercholesterolemia Urinary hesitancy Ventricular premature beats Type 2 diabetes mellitus without complication (CMS/HCC) Benign prostatic hyperplasia without urinary obstruction Family History Problem Relation Name Age of Onset Heart attack Father Coronary artery disease Father Coronary artery disease Brother Stroke Brother Social History Tobacco Use Smoking status: Former Types: Cigarettes Smokeless tobacco: Never Substance Use Topics Alcohol use: Not Currently HPI he is seen in follow-up. He has prior history of paroxysmal atrial fibrillation, hypertension, obstructive sleep apnea and diabetes. He has no chest pain. He has dyspnea on exertion NYHA class II, his major complaint is fatigue and inability to do physical activity as needed. No leg swelling. No palpitations. He has occasional dizziness. He is on carvedilol 12.5 mg bid (was given an extra 6.25 mg bid for better control of blood pressure but he's not taking it). Review of Systems Constitutional: Positive for malaise/fatigue and night sweats. Respiratory: Positive for cough and shortness of breath. Musculoskeletal: Positive for muscle cramps and muscle weakness. Neurological: Positive for excessive daytime sleepiness, dizziness, light-headedness and loss of balance. All other systems reviewed and are negative. Objective Visit Vitals BP 131/75 (BP Location: Left arm, Patient Position: Sitting, BP Cuff Size: Large adult) Pulse 77 Wt 109 kg (240 lb 9.6 oz) SpO2 97% BMI 32.63 kg/m??? Smoking Status Former BSA 2.35 m??? Physical Exam Constitutional: Appearance: He is well-developed. He is not ill-appearing. HENT: Head: Normocephalic and atraumatic. Nose: Nose normal. Eyes: General: No scleral icterus. Pupils: Pupils are equal, round, and reactive to light. Neck: Thyroid: No thyromegaly. Vascular: No JVD. Cardiovascular: Rate and Rhythm: Normal rate. Rhythm irregularly irregular. Pulses: Radial pulses are 2+ on the right side and 2+ on the left side. Heart sounds: Normal heart sounds. No murmur heard. No friction rub. No gallop. Pulmonary: Effort: Pulmonary effort is normal. No respiratory distress. Breath sounds: Normal breath sounds. No wheezing or rales. Chest: Chest wall: No tenderness. Abdominal: General: Bowel sounds are normal. There is no distension. Palpations: Abdomen is soft. Tenderness: There is no abdominal tenderness. Musculoskeletal: General: No swelling. Cervical back: Neck supple. Right lower le+ Pitting Edema present. Left lower le+ Pitting Edema present. Skin: General: Skin is warm and dry. Neurological: General: No focal deficit present. Mental Status: He is alert and oriented to person, place, and time. Psychiatric: Mood and Affect: Mood normal. Behavior: Behavior is cooperative. Judgment: Judgment normal. Allergies Allergies Allergen Reactions Penicillins Rash and Unknown Medications Current Outpatient Medications: amLODIPine-benazepriL (Lotrel) 10-20 mg capsule, Take 1 capsule by mouth in the morning., Disp: , Rfl: apixaban (Eliquis) 5 mg tablet, Take 5 mg by mouth in the morning and at bedtime., Disp: , Rfl: carvedilol (Coreg) 12.5 mg tablet, Take 1 tablet by mouth with breakfast and with evening meal., Disp: , Rfl: celecoxib (CeleBREX) 200 mg capsule, As needed, Disp: , Rfl: fluticasone (Flonase) 50 mcg/actuation nasal spray, Administer 50 sprays into each nostril in the morning., Disp: , Rfl: FreeStyle Lancets 28 gauge, , Disp: , Rfl: FreeStyle Lite Strips strip, , Disp: , Rfl: linagliptin-metformin (Jentadueto XR) 2.5-1,000 mg tablet, IR - ER, biphasic 24hr, Jentadueto XR 2.5 mg-1,000 mg tablet, extended release, Disp: , Rfl: multivitamin with minerals tablet, Take 1 tablet by mouth in the morning., Disp: , Rfl: atorvastatin (Lipitor) 40 mg tablet, Take 1 tablet (40 mg) by mouth in the morning., Disp: 90 tablet, Rfl: 3 Recent Labs Labs 08/2022 CBC - unremarkable CMP - Cr. 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 Stable mild aneurysmal dilation of c (more content not included)... [facility] Summary Purpose Family History No Family History Records FoundNo Family History Records FoundNo Family History Records FoundNo Family History Records FoundNo Family History Records Found Advance Directives No Advanced Directives Records FoundNo Advanced Directives Records FoundNo Advanced Directives Records FoundNo Advanced Directives Records FoundNo Advanced Directives Records Found Additional Source Comments (unrecognized sect ion and content) No Status Records FoundNo Status Records FoundNo Status Records FoundNo Status Records FoundNo Status Records Found INFORMATION SOURCE (unrecogn ized section and content) DATE CREATED AUTHOR 07/30/2018 [facility] DATE CREATED AUTHOR AUTHOR'S ORGANIZ ATION 05/31/2019 [facility] DATE CREATED AUTHOR AUTHOR'S ORGANIZ ATION 01/10/2023 [facility] DATE CREATED AUTHOR AUTHOR'S ORGANIZ ATION 11/21/2023 [facility] DATE CREATED AUTHOR AUTHOR'S ORGANIZ ATION 12/17/2023 [facility] FOR RECORDS PERTAINING TO PATIENTS WHO ARE OR HAVE BEEN ENROLLED IN A CHEMICAL DEPENDENCY/SUBSTANCEABUSE PROGRAM, SOME INFORMATION MAY BE OMITTED. This clinical summary was aggregated from multiple sources. Caution should be exercised in using it in the provision of clinical care. This summary normalizes information from multiple sources, and as a consequence, information in this document may materially change the coding, format and clinical context of patient data. In addition, data may be omitted in some cases. CLINICAL DECISIONS SHOULD BE BASED ON THE PRIMARY CLINICAL RECORDS. [facility] [employer] [facility]. provides no warranty or guarantee of the accuracy or completeness of information in this document.
--- NOTE | 2023-12-20 08:56 | CA_ITS ---
Patient Name: VINAYAK ANN MR#: [id number] : 1950 Exam Date: 12/20/2023 Ordering Doctor: WILLIE CARVER ECHOCARDIOGRAM REPORT PROCEDURE: CA ECHO DOPPLER COMPLETE INDICATIONS: Paroxysmal atrial fibrillation COMPARISON: None. DESCRIPTION: COMPLETE ECHOCARDIOGRAM Real-time transthoracic echocardiography with 2D, M-mode, spectral and color flow Doppler performed. QUALITY: Technical quality was good. BSA 2.2 LEFT VENTRICLE: Normal chamber size. Normal left ventricular wall thickness. Global left ventricular systolic function is normal. LV EF: Estimated left ventricular ejection fraction is 60%. DIASTOLIC: Not adequately assessed due to heart rhythm. ATRIAL SEPTUM: Probable left to right shunt by color doppler evaluation. Further evaluation by an agitated saline study is suggested if clinically warranted. LEFT ATRIUM: Moderate dilatation. RIGHT ATRIUM: Moderate dilatation. RIGHT VENTRICLE: Moderate dilatation. Normal right ventricular systolic function. TRICUSPID VALVE: Normal mobility and thickness. No stenosis with mild regurgitation. Mild pulmonary hypertension. RVSP 44 mmHg MITRAL VALVE: Normal mobility and thickness. No evidence of mitral valve stenosis. There is no mitral annular calcification. Mild to moderate mitral regurgitation. AORTIC VALVE: Normal trileaflet appearance. No visible sclerosis. Normal leaflet mobility. No evidence of aortic valve stenosis. Trivial aortic regurgitation. AORTIC ROOT: Moderately dilated. Measuring 4.3 cm at the sinus level. Ascending aorta is normal in size measuring 3.1 cm. PULMONIC VALVE: Normal thickness and mobility. No stenosis. Trivial regurgitation. PERICARDIUM: Trivial pericardial effusion. IVC: Collapses with inspirations. Normal size. PLEURA: CONCLUSION: 1. Global left ventricular systolic function is normal. Estimated left ventricular ejection fraction is 60%. 2. Moderately dilated right ventricle with normal systolic function. 3. Moderate bi-atrial dilatation. 4. Mild to moderate mitral regurgitation. 5. Mild tricuspid regurgitation. 6. Mildly elevated right sided pressures. RVSP is 44 mmHg. 7. Moderately dilated aortic root. 8. Cannot rule out the presence of an atrial septal defect. A transesophageal echocardiogram is recommended for further evaluation. Adult Echocardiography Procedure Report Left Ventricle LVEDD (3.7 - 5.6 cm): 5.67 cm LVESD (2.2 - 4.0 cm): 3.43 cm LVIVS thickness (0.6 - 1.2 cm): 0.85 cm LVPW thickness (0.5 - 1.0 cm): 1.01 cm e': 0.09 m/s E - e': 11.75 LVOT Max Gradient: 2.09 mm[Hg] LVOT Area (cm2): 0.72 m/s Peak Velocity (LVOT): 0.72 m/s Mean Velocity (LVOT): 0.50 m/s LVOT Diameter 2.29 cm Left Ventricular Ejection Fraction: 60 % Left Atrium LA Volume Index (2D A2C): 49.90 ml/m2 Left Atrium Systolic Dimension: 4.66 cm Mitral Valve Mitral Valve E-Wave Peak Velocity: 1.02 m/s Right Ventricle RV Internal Diastolic Dimension: 5.06 cm Aorta AO Root Diam: 4.26 cm Ascending Ao Diam: 3.20 cm Aortic Valve AoV Area (Peak Elan): 2.43 cm2, 2.39 cm2 AoV Area (VTI): 2.42 cm2, 2.34 cm2 Peak Velocity(Antegrade Flow): 1.24 m/s, 1.20 m/s Peak Gradient(Antegrade Flow): 6.16 mm[Hg], 5.78 mm[Hg] Mean Velocity(Antegrade Flow): 0.92 m/s, 0.89 m/s Mean Gradient(Antegrade Flow): 3.76 mm[Hg], 3.50 mm[Hg] Velocity Time Integral: 28.28 cm, 26.33 cm Tricuspid Valve Peak Velocity (Regurgitant Flow): 3.03 m/s, 2.67 m/s, 3.19 m/s Pulmonic Valve Mean Gradient: 1.61 mm[Hg], 1.59 mm[Hg] Mean Velocity: 0.61 m/s, 0.57 m/s Peak Velocity: 0.95 m/s, 0.91 m/s Peak Gradient: 3.34 mm[Hg], 3.21 mm[Hg], 4.10 mm[Hg] Right Atrium Right Atrium Systolic Pressure: 90.19 ml, 90.19 ml Dictated by: Francesco Harvey M.D. on 12/22/2023 at 15:10 Approved by: Francesco Harvey M.D. on 12/22/2023 at 15:19
== END 2023-12-20 07:57 | disposition home or self-care (01) ==
LOC: CARD 07:56
PROVIDERS: PCP Internal Medicine; Visit Provider Internal Medicine Cardiovascular Disease
DX: I48.0 Paroxysmal atrial fibrillation (principal)
CPT/HCPCS: 93306

== ENCOUNTER 2024-01-29 12:43 | Outpatient (OUT) | payer MEDICARE, OTHER, SELFPAY ==
--- OUTSIDE RECORDS SUMMARY | 2024-01-29 13:00 | XMS_ITS | CCD ---
Author Organization [facility] Care Team Providers Care Hogshead Opener Name Role Phone PHYSICIAN, DEFAULT Unavailable Unavailable PHYSICIAN, DEFAULT Unavailable Unavailable PHYSICIAN, DEFAULT Unavailable Unavailable PHYSICIAN, DEFAULT Unavailable Unavailable SAVANNA, BELÉN Admitting Unavailable SAVANNA, BELÉN Attending Unavailable VICK, DR FELICIANO Primary Care Unavailable JARROD, DR MODE Souza Consulting Unavailable SAVANNA, BELÉN Consulting Unavailable SUZANNA, RAMON Admitting Unavailable SUZANNA, RAMON Attending Unavailable VICK, DR FELICIANO Primary Care Unavailable STAFFORD, DR LUIS MANUEL [place] Consulting Unavailable SUZANNA, RAMON Consulting Unavailable MEHUL, PANTERA Attending Unavailable MEHUL, PANTERA Attending Unavailable PANTERA TOMLIN Admitting Unavailable MEHUL, PANTERA Attending Unavailable PANTERA TOMLIN Referring Unavailable NICOLETTE VALDEZ Attending Unavailable BENEDICT, DARREN Brito Attending Unavailable VICK, BRADEN Martin Attending Unavailable HEMJACLYN, WILLY Brito Attending Unavailable Allergies Allergy Classification Reported Allergen(s) Allergy Type Date of Onset Reaction(s) Facility (2 sources) Penicillins; Translations: [PENICILLINS] Drug allergy (disorder) 12-27-2020 [facility] Repository Problems Active Problems Problem Classification [...] Prep for Procedureon 024 Prep for Procedure [id number] 1950 Provider Department Center 12/12/2023 CLAIRE GAGE [facility] Family History Problem Relation Age of Onset Heart attack Father Coronary artery disease Father Coronary artery disease Brother Stroke Brother Family Status - Relation Status Age at Father Brother Normal [facility] Office Visiton 12-11-2023 Follow-up visit [id number] 1950 Provider Department Center 12/11/2023 Rosibel-PANTERA TOMLIN LUZM ARIA [facility] Family History Problem Relation Age of Onset Heart attack Father Coronary artery disease Father Coronary artery disease Brother Stroke Brother Family Status - Relation Status Age at Father Brother Level of Service:44535 [place] OFFICE/OUTPATIENT ESTABLISHED HIGH MDM 40 MIN Normal [facility] Orders Onlyon 12-11-2023 Orders Only [id number] 1950 Date Provider Department Center 12/11/2023 ISMAEL BOLES LUZ MARIA [facility] Family History Problem Relation Age of Onset Heart attack Father Coronary artery disease Father Coronary artery disease Brother Stroke Brother Family Status - Relation Status Age at Father Brother Normal [facility] Orders Onlyon 10-08-2023 Orders Only [id number] 1950 M Date Provider Department Center 10/08/2023 SHEILA EDEN [facility] Family History Problem Relation Age of Onset Heart attack Father Coronary artery disease Father Coronary artery disease Brother Stroke Brother Family Status - Relation Status Age at Father Brother [facility] Telemedicineon 09-11-2023 Telemedicine [id number] Vinayak Madrigal 1950 M Date Provider Department Center 09/11/2023 PANTERA ORTEGA Family History Problem Relation Age of Onset Heart attack Father Coronary artery disease Father Coronary artery disease Brother Stroke Brother Family Status - Relation Status Age at Father Brother Level of Service:08662 [place] PHYS/QHP TELEPHONE EVALUATION 11-20 MIN [facility] 36on 06-03-2023 36 Please tell him the echo and stress test from 05/29/2023 were ok. Please refer him to Dr Pantera Tomlin for consideration of AF ablation. [facility] Telephoneon 06-03-2023 Telephone [id number] Vinayak Madrigal 1950 M Date Provider Department Center 06/03/2023 NICOLETTE PETERS LUZ MARIA Velazquez Family History Problem Relation Age of Onset Heart attack Father Coronary artery disease Father Coronary artery disease Brother Stroke Brother Family Status - Relation Status Age at Father Brother [facility] Office Visiton 05-22-2023 Follow-up visit [id number] Bonilla 1950 M Date Provider Department Center 05/22/2023 NICOLETTE PETERS LUZ MARIA [facility] Family History Problem Relation Age of Onset Heart attack Father Coronary artery disease Father Coronary artery disease Brother Stroke Brother Family Status - Relation Status Age at Father Brother Level of Service:94421 [place] OFFICE/OUTPATIENT ESTABLISHED MOD [facility] 30-39 MIN Reason for Visit and Comments: Follow-up [178752] - 6 month follow up [facility] US ABD AORTA DIAGNOSTICon US ABD AORTA [...] by: MODE GARAY Date: 2022-12-27 15:45 Normal [facility] 36on 12-20-2022 36 Pt did not have bps will call back january 03 Normal [facility] US ABD AORTA DIAGNOSTICon US ABD AORTA [...] LUIS MANUEL MCCORMICK Date: 2022-01-16 07:21 Normal [facility] Coding Summary.on 02-12-2019 Coding Summary. 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 However, the narrative phrase printed from the coding software may appear abbreviated, or result in slightly different terminology. Coded By: Analia Le Date Saved: 02/12/2019 12:49 pm Normal [facility] Main OR Intraoperative Recor romaine 02-06-2019 Main OR Intraoperative Record IntraOp Document Type FTURO Summary Primary Physician: Eric Elizabeth Jr., MD Finalized Date/Time: 02/06/19 14:00:49 Pt. Name: VINAYAK MADRIGAL.O.B./Sex: 1950 Male Med Rec #: [id number] Physician: Eric Elizabeth Jr., MD Financial #: [id number] Pt. Type: O Room/Bed: / Admit/Disch: 02/06/19 12:31:57 - Institution: Case Times FTURO Entry 1 Patient Times In Room 02/06/19 13:43:00 Out Room 02/06/19 14:02:00 Procedure Times Start 02/06/19 13:47:00 Stop 02/06/19 13:56:00 Anesthesia Times Last Modified By: Nathaly TEJADA, MELYOR, Jessica 02/06/19 14:00:08 Case Attendance FTURO Entry 1 Entry 2 Entry 3 Case Attendee Eric Elizabeth Jr., MD RN, CNOR, Ana MOORE, Ping Lopez Role Performed Surgeon - Primary Motor Vehicle Assembly Supervisor - Primary Scrub - Primary Time In 02/06/19 13:43:00 02/06/19 13:43:00 02/06/19 13:43:00 Time Out 02/06/19 14:02:00 02/06/19 14:02:00 02/06/19 14:02:00 Procedure CYSTOSCOPY LOCAL CYSTOSCOPY LOCAL CYSTOSCOPY LOCAL REZUM(.) REZUM(.) REZUM(.) Comments Last Modified By: Nathaly RN, CNOR, Nathaly RN, CNOR, Nathaly RN, CNOR, Jessica 02/06/19 Jessica 02/06/19 Jessica 02/06/19 14:00:09 [...] 14:00 DREW Andersen RN, Ruthann 02/06/19 14:00 [facility] Main OR Preoperative Recordo n 02-06-2019 Main OR Preoperative Record Holding Area Document Type FTURO Summary Primary Physician: Eric Elizabeth Jr., MD Finalized Date/Time: 02/06/19 13:49:45 Pt. Name: VINAYAK MADRIGAL /Sex: 1950 Male Med Rec #: [id number] Physician: Eric Elizabeth Jr., MD Financial #: [id number] Pt. Type: O Room/Bed: / Admit/Disch: 02/06/19 [...] of Pain: No Comment: Skin Integrity Intact, [place], Warm, & Dry Vitals - EU Blood Pressure 124/74 Pulse 60 bpm Respirations 18 br/min SPO2 RN Reviewed Yes Last Modified By: DREW Andersen RN, Ruthann 02/06/19 13:49:43 Finalized By: DREW Andersen RN, Ruthann Document Signatures Signed By: Sharon Lawler LPN 02/06/19 12:50 DREW Andersen RN, Ruthann 02/06/19 13:49 Normal [facility] Operative Reporton 9 Operative Report Patient: VINAYAK [...] satisfactory condition, Discharge instructions are provided. Normal [facility] Comment on above: Result Comment: Elec tronically Signed By: Glenn Hoyt MD, Eric Nguyen\.nataliya\Date and Time Signed: 02/06/19 13:57 EDT Encounters Encounter Date Encounter Type Care Provider Facility Start: 01-07-2024 End: 01-07-2024 ambulatory WILLY MILLS Not Available Start: 12-11-2023 End: 12-11-2023 ambulatory [facility] Start: 11-20-2023 End: 11-20-2023 ambulatory DARREN Brito BENEDICT Not Available Start: 10-15-2023 End: 10-15-2023 ambulatory [facility] Start: 09-20-2023 End: 09-20-2023 ambulatory BRADEN HICKMAN Not Available Start: 09-11-2023 End: 09-11-2023 ambulatory [facility] Start: 05-22-2023 End: 05-22-2023 ambulatory NICOLETTE VALDEZ [facility] Start: 12-27-2022 End: 12-28-2022 ambulatory BELÉN CORRALES Facility:[facility] Start: 01-14-2022 End: 01-15-2022 ambulatory RAMON BRISENO Facility: Start: 07-15-2018 End: 07-16-2018 Patient encounter DEFAULT PHYSICIAN Facility:[facility] Start: 06-11-2018 End: 06-12-2018 Patient encounter DEFAULT PHYSICIAN Facility:[facility] Payers Date Payer Category Payer [employer] ( and others) [id number] 1959 Medicare [id number] 1950 Unknown [id number] 1950 Unknown [id number] 1950 Unknown [id number] 1950 Unknown [id number] 1950 Unknown [id number] Unknown Progress note 12-11-2023 Note Date & Type Note Facility 12-11-2023 Note [facility] Reason for [...] Value Ventricular Rate 81 Atrial Rate 81 GA Interval 202 QRS DURATION 114 QT Interval 436 QTC CALCULATION(BAZETT) 506 P [place] 51 R-[place] 0 T Wave [place] 38 Impression Sinus rhythm with occasional Premature ventricular (more content not included)... [facility] Clinical Note 10-15-2023 Note Date & Type Note Facility 10-15-2023 Note EKG completed and pt in NSR. Dr. Tomlin cancelled procedure. [facility] Progress note 09-11-2023 Note Date & Type Note Facility 09-11-2023 Note [facility] Reason for visit: Afib Date of Telehealth Visit: 09/11/2023 The patient was notified that using 3rd alliance party telecommunication application (e.g., [employer]) is not HIPPA compliant and may carry some privacy risks. Yes The visit was conducted [id number] with the use of audio and video [...] Amio and then (more content not included)... [facility] Progress note 05-22-2023 Note Date & Type Note Facility 05-22-2023 Note [facility] Subjective Vinayak Madrigal is a 72 [...] dilation of c (more content not included)... [facility] Summary Purpose Family History No Family History [...] and content) DATE CREATED AUTHOR 07/30/2018 [facility] DATE CREATED AUTHOR AUTHOR'S ORGANIZ ATION 05/31/2019 [facility] DATE CREATED AUTHOR AUTHOR'S ORGANIZ ATION 01/10/2023 [facility] DATE CREATED AUTHOR AUTHOR'S ORGANIZ ATION 12/17/2023 [facility] DATE CREATED AUTHOR AUTHOR'S ORGANIZ ATION 01/08/2024 [facility] FOR RECORDS PERTAINING TO PATIENTS WHO ARE [...] BE BASED ON THE PRIMARY CLINICAL RECORDS. [employer] provides no warranty or guarantee of the accuracy or completeness of information in this document.
[2024-01-29 13:16] LABS: Basophils Absolute Auto 0.1 10^3/uL (0.0-0.1); Basophils Percent Auto 0.8 % (0.2-2.0); Eosinophils Absolute Auto 0.1 10^3/uL (0.0-0.7); Eosinophils Percent Auto 1.3 % (0.9-7.0); Hematocrit 47.8 % (42.0-54.0); Hemoglobin 15.8 g/dL (14.0-18.0); Immature Granulocytes Abs Auto 0.02 10^3/uL (0.00-0.03); Immature Granulocytes Pct Auto 0.3 % (0.0-0.5); Lymphocytes Absolute Auto 1.4 10^3/uL (1.2-3.8); Mean Corpuscular HGB Conc 33.1 g/dL (29.9-35.2); Mean Corpuscular Hemoglobin 30.6 pg (25.9-34.0); Mean Corpuscular Volume 92.5 fL (80.0-94.0); Mean Platelet Volume 9.7 fL (9.5-13.5); Monocytes Absolute Auto 0.7 10^3/uL (0.3-0.8); Neutrophils Absolute Auto 5.3 10^3/uL (1.4-6.5); Neutrophils Percent Auto 70.6 % (43.0-75.0); Platelet Count 252 10^3/uL (150-450); Red Blood Count 5.17 10^6/uL (4.70-6.10); Red Cell Distribution Width 13.4 % (11.0-15.0); White Blood Count 7.5 10^3/uL (4.0-11.0)
[2024-01-29 13:35] LABS: Anion Gap 15.4; BUN Creatinine Ratio 10.2; Calcium 8.9 mg/dL (8.5-10.1); Carbon Dioxide 26.1 mmol/L (21.0-32.0); Chloride 104 mmol/L (98-107); Estimated GFR (African America >60 (>=60); Estimated GFR (Non-African Ame 51 (>=60); Glucose 177 mg/dL (74-106); Potassium 4.5 mmol/L (3.5-5.1); Sodium 141 mmol/L (136-145)
== END 2024-01-29 12:44 | disposition home or self-care (01) ==
LOC: LAB 12:44
PROVIDERS: PCP Internal Medicine; Visit Provider Internal Medicine Cardiovascular Disease
DX: Z01.818 Encounter for other preprocedural examination (principal)
CPT/HCPCS: 36415; 80048; 85025

== ENCOUNTER 2024-03-05 10:05 | Outpatient (OUT) | payer MEDICARE, OTHER, SELFPAY ==
[2024-03-05 10:33] LABS: Basophils Absolute Auto 0.1 10^3/uL (0.0-0.1); Basophils Percent Auto 0.8 % (0.2-2.0); Eosinophils Absolute Auto 0.2 10^3/uL (0.0-0.7); Eosinophils Percent Auto 2.5 % (0.9-7.0); Hemoglobin 15.2 g/dL (14.0-18.0); Immature Granulocytes Abs Auto 0.02 10^3/uL (0.00-0.03); Immature Granulocytes Pct Auto 0.3 % (0.0-0.5); Lymphocytes Absolute Auto 0.9 10^3/uL (1.2-3.8); Mean Corpuscular HGB Conc 32.3 g/dL (29.9-35.2); Mean Corpuscular Hemoglobin 30.2 pg (25.9-34.0); Mean Corpuscular Volume 93.4 fL (80.0-94.0); Mean Platelet Volume 9.9 fL (9.5-13.5); Monocytes Absolute Auto 0.5 10^3/uL (0.3-0.8); Neutrophils Absolute Auto 4.5 10^3/uL (1.4-6.5); Neutrophils Percent Auto 73.4 % (43.0-75.0); Platelet Count 224 10^3/uL (150-450); Red Blood Count 5.03 10^6/uL (4.70-6.10); Red Cell Distribution Width 13.3 % (11.0-15.0); White Blood Count 6.1 10^3/uL (4.0-11.0)
[2024-03-05 11:34] LABS: BUN Creatinine Ratio 13.5; Calcium 9.4 mg/dL (8.5-10.1); Carbon Dioxide 23.7 mmol/L (21.0-32.0); Chloride 104 mmol/L (98-107); Estimated GFR (African America 54 (>=60); Estimated GFR (Non-African Ame 44 (>=60); Glucose 214 mg/dL (74-106); Potassium 4.7 mmol/L (3.5-5.1); Sodium 139 mmol/L (136-145)
== END 2024-03-05 10:06 | disposition home or self-care (01) ==
LOC: LAB 10:08
PROVIDERS: PCP Internal Medicine; Visit Provider Internal Medicine Cardiovascular Disease
DX: I48.11 Longstanding persistent atrial fibrillation (principal)
CPT/HCPCS: 36415; 80048; 85025

== ENCOUNTER 2024-05-06 12:38 | Outpatient (OUT) | payer MEDICARE, OTHER, SELFPAY ==
--- OUTSIDE RECORDS SUMMARY | 2024-05-06 12:48 | XMS_ITS ---
Patient Summarization (C-CDA 2.1 CCD) Created on: May 06, 2024 VINAYAK MADRIGAL : 1950 Sex: Male Author Organization Sample organization Care Team Providers Care Research Group Director Name Role Phone PHYSICIAN, DEFAULT Unavailable Unavailable PHYSICIAN, DEFAULT Unavailable Unavailable PHYSICIAN, DEFAULT Unavailable Unavailable PHYSICIAN, DEFAULT Unavailable Unavailable SAVANNA, BELÉN Admitting Unavailable SAVANNA, BELNÉ Attending Unavailable VICK, DR FELICIANO Primary Care Unavailable JARROD, DR MODE Souza Consulting Unavailable SAVANNA, BELÉN Consulting Unavailable SUZANNA, RAMON Admitting Unavailable SUZANNA, RAMON Attending Unavailable HICKMAN, DR FELICIANO Primary Care Unavailable JACE, DR LUIS MANUEL [place]rb[place] Consulting Unavailable SUZANNA, RAMON Consulting Unavailable MEHUL, PANTERA Referring Unavailable MEHUL, PANTERA Referring Unavailable MEHUL, PANTERA Referring Unavailable MEHUL, PANTERA Attending Unavailable MEHUL, PANTERA Attending Unavailable SAVANNA, BELÉN Attending Unavailable MEHUL, PANTERA Admitting Unavailable MEHUL, PANTERA Attending Unavailable MEHUL, PANTERA Admitting Unavailable MEHUL, PANTERA Attending Unavailable MOUKARBELNICOLETTE Attending Unavailable MEHUL, PANTERA Attending Unavailable MEHUL, PANTERA Referring Unavailable MEHUL, PANTERA Referring Unavailable BENEDICTDARREN Attending Unavailable VICK, BRADEN Martin Attending Unavailable HEMWILLY ANAYA Attending Unavailable LEANNE, BENNIE Attending Unavailable LEANNE, BENNIE Referring Unavailable LEANNE, BENNIE Referring Unavailable LEANNE, BENNIE Attending Unavailable Allergies Allergy Classification Reported Allergen(s) Allergy Type Date of Onset Reaction(s) Facility (2 sources) Penicillins; Translations: [PENICILLINS] Drug allergy (disorder) 12-27-2020 [facility] Repository Encounters Encounter Date Encounter Type Care Provider Facility Start: 05-05-2024 End: 05-05-2024 ambulatory BENNIE PERDOMO Not Available Start: 04-28-2024 End: 04-28-2024 ambulatory BENNIE LEANNE Not Available Start: 04-08-2024 End: 04-08-2024 ambulatory BELÉN CORRALES [facility] Start: 03-13-2024 ambulatory [facility] Start: 03-13-2024 End: 03-13-2024 ambulatory [facility] Start: 03-12-2024 End: 03-12-2024 ambulatory BENNIE PERDOMO Not Available Start: 03-10-2024 End: 03-10-2024 ambulatory BENNIE PERDOMO Not Available Start: 02-05-2024 End: 02-05-2024 ambulatory [facility] Start: 01-29-2024 End: 01-29-2024 ambulatory [facility] Start: 01-07-2024 End: 01-07-2024 ambulatory WILLY MILLS Not Available Start: 12-11-2023 End: 12-11-2023 ambulatory [facility] Start: 11-20-2023 End: 11-20-2023 ambulatory DARREN MCMULLEN Not Available Start: 10-15-2023 End: 10-15-2023 ambulatory [facility] Start: 09-20-2023 End: 09-20-2023 ambulatory BRADEN HICKMAN Not Available Start: 09-11-2023 End: 09-11-2023 ambulatory [facility] Start: 05-22-2023 End: 05-22[facility]: 12-27-2022 End: 12-28-2022 ambulatory BELÉN CORRALES Facility:[facility] Start: 01-14-2022 End: 01-15-2022 ambulatory RAMON SUZANNA Facility:[facility] Start: 07-15-2018 End: 07-16-2018 Patient encounter DEFAULT PHYSICIAN Facility:[facility] Start: 06-11-2018 End: 06-12-2018 Patient encounter DEFAULT PHYSICIAN Facility:[facility] Payers Date Payer Category Payer Department of [employer] ([employer] and others) [id number] 1959 Medicare [id number] 1950 Unknown [id number] 1950 Unknown [id number] 1950 Unknown [id number] 1950 Unknown [id number] 1950 Unknown [id number] 1950 Unknown [id number] 1950 Unknown [id number] 1950 Unknown [id number] 1950 Unknown [id number] Unknown Problems Active Problems Problem Classification Problem Date Documented Date Episodic/Chronic Aortic; peripheral; and visceral artery aneurysms (4 sources) Abdominal aortic aneurysm, without rupture; Translations: [ABDOMINAL AORTIC ANEUR W/O RUPTURED] Onset: 01-14-2022 Chronic Cardiac dysrhythmias (4 sources) Unspecified atrial flutter; Translations: [Paroxysmal atrial fibrillation] Onset: 12-12-2023 Chronic Disorders of lipid metabolism (2 sources) Mixed hyperlipidemia; Translations: [Mixed hyperlipidemia] Onset: 12-04-2022 Chronic Essential hypertension (2 sources) Essential (primary) hypertension; Translations: [Essential (primary) hypertension] Onset: 05-22-2023 Chronic Unclassified (3 sources) ABDOMINAL AA W/O RUPTURE UNSPCIFIED; Translations: [ABDOMINAL AA W/O RUPTURE UNSPCIFIED] Onset: 01-08-2023 Unclassified (1 source) Supraventricular tachycardia, unspecified; Translations: [Supraventricular tachycardia, unspecified] Onset: 12-12-2023 Unclassified (2 sources) Longstanding persistent atrial fibrillation; Translations: [Longstanding persistent atrial fibrillation] Onset: 09-17-2023 Past or Other Problems Problem Classification Problem Date Documented Date Episodic/Chronic Other lower respiratory disease (2 sources) Shortness of breath; Translations: [Shortness of breath] Onset: 05-22-2023 Episodic Residual codes; unclassified (2 sources) Localized edema; Translations: [Localized edema] Onset: 05-22-2023 Episodic Unclassified (1 source) ABDOMINAL AA W/O RUPTURE UNSPCIFIED; Translations: [ABDOMINAL AA W/O RUPTURE UNSPCIFIED] Onset: 12-27-2022 Unclassified (1 source) Supraventricular tachycardia, unspecified; Translations: [Supraventricular tachycardia, unspecified] Onset: 03-13-2024 Results Test Name Value Interpretation Reference Range Facility Follow-Upon 04-08-2024 Follow-Up [id number] Vinayak Madrigal 1950 M Date Provider Department Center 04/08/2024 Devin-BELÉN CORRALES [facility] Family History Problem Relation Age of Onset Heart attack Father Coronary artery disease Father Coronary artery disease Brother Stroke Brother Family Status - Relation Status Age at Father Brother Level of Service:13913 SD OFFICE/OUTPATIENT ESTABLISHED MOD MDM 30 MIN Reason for Visit and Comments: Atrial Fibrillation [80] Normal [facility] Telephoneon 03-20-2024 Telephone [id number] Vinayak Madrigal 1950 M Date Provider Department Center 03/20/2024 Krishna-CLAIRE [facility]EAGA [facility] Family History Problem Relation Age of Onset Heart attack Father Coronary artery disease Father Coronary artery disease Brother Stroke Brother Family Status - Relation Status Age at Father Brother Reason for Visit and Comments: week f/u post ablation [Other] Normal [facility] HPon 03-13-[address] [facility] Electrophysiology Consult Note Reason for visit: Afib 01/29/24 Patient here for H&P and to obtain consent for upcoming atrial fibrillation ablation procedure scheduled for 02/14/[address] Tomlin at [facility]. Denies chest pain, SOB, palpitations, lightheadedness/syncop e, and bleeding on Eliquis. EKG 01/29/24 SR 12/11/23 patient was loaded with amiodarone and [...] fibrillation (CMS/HCC) Diabetes mellitus (CMS/HCC) Hyperlipidemia Hypertension Obesity BMI 33.23 PSH: Past Surgical History: Procedure Laterality Date APPENDECTOMY SINUS SURGERY VASECTOMY SH: Social Determinants of Health Tobacco Use: Medium Risk (03/13/2024) Patient History Smoking Tobacco Use: Former Smokeless Tobacco Use: Never Passive Exposure: Not on file Alcohol Use: Not on file Financial Resource Strain: Not on file Food Insecurity: Not on file Transportation Needs: Not on file Physical Activity: Not on file Stress: Not on file Social Connections: Not on file Intimate Partner Violence: Unknown (12/27/2023) [place] Safety & Environment Fear of Current or Ex-Partner: Not on file Emotionally Abused: Not on file Physically Abused: Not on file Sexually Abused: Not on file Physically or Sexually Abused: Not on file Depression: Not on file Housing Stability: Not on file Utilities: Not on file Allergies: Allergies Allergen Reactions Penicillins Rash and Unknown Weight: 111kg Visit Vitals BP (!) 151/96 Pulse (!) 113 Temp 36.2 ???C (97.2 ???F) (Temporal) Resp 18 Ht 1.829 m (6') Wt 112 kg (247 lb 12.8 oz) SpO2 99% BMI 33.61 kg/m??? Smoking Status Former BSA 2.39 m??? Meds: No current facility-administered medications on file prior to encounter. Current Outpatient Medications on File Prior to Encounter Medication Sig Dispense Refill amLODIPine-benazepriL (Lotrel) 10-20 [...] by mouth in the morning. As needed glimepiride (Amaryl) 2 mg tablet Take 2 mg by mouth 2 times daily. SITagliptin phosphate (Januvia) 50 mg tablet Take 50 mg by mouth in the morning. ROS: Review of Systems Constitutional: Positive for malaise/fatigue and night sweats. Respiratory: Positive for wheezing. Musculoskeletal: Positive for muscle cramps and muscle weakness. Neurological: Positive for excessive daytime sleepiness and loss of balance. All other systems [...] PEROXIDASE AB , BNP EKG: Encounter Date: 03/13/24 Electrocardiogram, 12-lead Result Value Ventricular Rate 71 QRS DURATION 110 QT Interval 448 QTC CALCULATION(BAZETT) 486 R-Maskell -7 T Wave Maskell 8 Impression Atrial fibrillation (more content not included)... Normal [facility] POCT GLUCOSE METER UNSOLICIT ED RESULTSon 03-13-2024 Glucose [Mass/Vol] 194 mg/dL High 70-105 [facility] Comment on above: Order Comment: Waive d Testing in the ED is performed under the ED CLIA certificate #[id number]. Result Comment: cedric k2 Performed By: #### L [id number] ####[facility] (BEAKER)[address] [place] [address] Glucose [Mass/Vol] 177 mg/dL High 70-105 [facility] Comment on above: Order Comment: Waive d Testing in the ED is performed under the ED CLIA certificate #[id number]. Result Comment: eryn meek Performed By: #### L [id number] #### [facility] ([employer]) [address] [place] [address] Glucose [Mass/Vol] 162 mg/dL High 70-105 [facility] Comment on above: Order Comment: Waive d Testing in the ED is performed under the ED CLIA certificate #[id number]. Result Comment: lmil [email or web address] Performed By: #### L [id number] ####[facility] (BEAKER)[address] [place] [address] PROTIME-INRon 03-13-2024 INR IN PPP BY COAGULATION ASSAY 0.99 Normal 0.90-1.10 [facility] Comment on above: Result Comment: ACCC P RECOMMENDED INR FOR WARFARIN THERAPY CONDITION INR PROPHYLAXIS OF VENOUS THROMBOSIS 2-3 (HIGH-RISK SURGERY) TREATMENT OF VENOUS THROMBOSIS 2-3 TREATMENT OF PULMONARY EMBOLISM 2-3 PREVENTION OF SYSTEMIC EMBOLISM: 2-3 ACUTE MYOCARDIAL INFARCTION TISSUE HEART VALVES VALVULAR HEART DISEASE ATRIAL FIBRILLATION RECURRENT SYSTEMIC EMBOLISM MECHANICAL HEART VALVE 2.5-3.5 FROM: ORAL ANTICOAGULANTS. MECHANISM OF ACTION, CLINICAL EFFECTIVENESS, AND OPTIMAL THERAPEUTIC RANGE. CHEST 1995;108:231S-246S. Performed By: #### L [id number] #### [facility] ([facility]) [address] [place] [address] PROTHROMBIN TIME (PT) IN PPP BY COAGULATION ASSAY 13.1 Seconds Normal 12.3-14.8 [facility] Comment on above: Performed By: #### L [id number] #### [facility] ([facility]) [address] [place] [address] Prep for Procedureon 024 Prep for Procedure [id number] Vinayak Madrigal 1950 M Date Provider Department Center 03/13/20241986CLAIRE ARTEAGA [facility] Family History Problem Relation Age of Onset Heart attack Father Coronary artery disease Father Coronary artery disease Brother Stroke Brother Family Status - Relation Status Age at Father Brother Normal [facility] Orders Onlyon 02-22-2024 Orders Only [id number] ,Nov1950 M Date Provider Department Center 02/22/20241986CLAIRE FELTON [facility] Family History Problem Relation Age of Onset Heart attack Father Coronary artery disease Father Coronary artery disease Brother Stroke Brother Family Status - Relation Status Age at Father Brother Normal [facility] [id number] 02-06-2024 [id number] ARRIVAL TIME GIVEN 0630 HOLD ELIQLUIS 02/11 MEDICATIONS TO TAKE DAY OF SURGERY WITH SIP OF WATER AMIODARONE COREG HOLD VITAMINS AND SUPPLEMENTS 5 DAYS PRIOR TO PROCEDURE HOLD ALL ANTI INFLAMMATORIES ETC:MOTRIN, ADVIL, ALEVE, FOR 5 DAYS PRIOR TO PROCEDURE IF YOU ARE GOING HOME AFTER YOUR SURGERY OR PROCEDURE, FOR YOUR SAFETY, YOUR SURGERY WILL BE CANCELLED IF BOTH OF THE FOLLOWING ARE NOT AVAILABLE: An adult fire truck driver over the age of 18, that can receive information about your care after surgery, and drive you home. A responsible adult to stay with you for 24 hours in case of an emergency. Can be same as above. The highest risk of complications is within the first 24 hours after sedation/anesthesia. Nothing to eat or drink after midnight the night before surgery. This includes gum, candy, mints, and lozenges. No alcohol, marijuana, or tobacco products including vaping for 24 hours. Please brush your teeth; don't swallow the toothpaste or water. If you use dentures, wear them but do not use paste. Please leave any other removable dental hardware at home. Do not put in contact lenses. Do not wear perfume, make-up, nail libyan, or lotions on the day of your surgery or procedure. Follow skin-prep/wipe instructions as below if required. Bring with you: *Insurance card *Photo ID *Medication list *Co-pay for visit/prescriptions If applicable: *Rescue inhalers *Green bracelet from lab *CPAP or BiPAP machine, if staying overnight *Any braces, splints, or equipment ordered preoperatively *Remote controls for implanted devices Leave at home: *Purse/Wallet/Melgoza- unless needed for co-pay *Cell phone (can leave with family/friend or place in locker if needed) *Jewelry (including piercings and wedding bands) *If not possible, ask the person who is waiting with you to keep them Children under the age of 12 will not be allowed into patient care areas. We will call you between 3pm and 4pm the day before your surgery to give you an arrival time. If you do not receive this call, have any questions, or need to make any changes, please call [phone]. Notify your surgeon if you develop any illness such as a cold, cough, fever, sore throat or vomiting between now and your surgery. Thank you for entrusting us with your care. [facility] Surgical Services Team Normal [facility] Orders Onlyon 02-06-2024 Orders Only [id number] Vinayak Madrigal 1950 M Date Provider Department Center 02/06/2024 SHARON BLACKMON [facility] RADHA [facility] Family History Problem Relation Age of Onset Heart attack Father Coronary artery disease Father Coronary artery disease Brother Stroke Brother Family Status - Relation Status Age at Father Brother Normal [facility] Office Visiton 01-29-2024 Follow-up visit [id number] Young,Nov1950 M Date Provider Department Center 01/29/2024 [facility] Family History Problem Relation Age of Onset Heart attack Father Coronary artery disease Father Coronary artery disease Brother Stroke Brother Family Status - Relation Status Age at Father Brother Level of Service:01229 SD OFFICE/OUTPATIENT ESTABLISHED HIGH MDM 40 MIN Normal [facility] Prep for Procedureon 024 Prep for Procedure [id number] [birth year]anNov1950 Date Provider Department Center 12/12/2023 Krishna-CL[facility] Family History Problem Relation Age of Onset Heart attack Father Coronary artery disease Father Coronary artery disease Brother Stroke Brother Family Status - Relation Status Age at Father Brother Normal [facility] Office Visiton 12-11-2023 Follow-up visit [id number] [birth year]anNov1950 M Date Provider Department Center 12/11/2023 [facility] Family History Problem Relation Age of Onset Heart attack Father Coronary artery disease Father Coronary artery disease Brother Stroke Brother Family Status - Relation Status Age at Father Brother Level of Service:55323 SD OFFICE/OUTPATIENT ESTABLISHED HIGH MDM 40 MIN Normal [facility] Orders Onlyon 12-11-2023 Orders Only [id number] RohanNov1950 M Date Provider Department Center 12/11/[address] [facility] Family History Problem Relation Age of Onset Heart attack Father Coronary artery disease Father Coronary artery disease Brother Stroke Brother Family Status - Relation Status Age at Father Brother Normal [facility] Orders Onlyon 10-08-2023 Orders Only [id number] RohanNov1950 M Date Provider Department Center 10/08/2023 Ida-SHEILA ABREU [facility] Family History Problem Relation Age of Onset Heart attack Father Coronary artery disease Father Coronary artery disease Brother Stroke Brother Family Status - Relation Status Age at Father Brother Normal [facility] Telemedicineon 09-11-2023 Telemedicine [id number] RohanNov1950 M Date Provider Department Center 09/11/2023 PANTERA ORTEGA Family History Problem Relation Age of Onset Heart attack Father Coronary artery disease Father Coronary artery disease Brother Stroke Brother Family Status - Relation Status Age at Father Brother Level of Service:64955 SD PHYS/QHP TELEPHONE EVALUATION 11-20 MIN [facility] 36on 06-03-2023 36 Please tell him the echo and stress test from 05/29/2023 were ok. Please refer him to Dr Pantera Tomlin for consideration of AF ablation. Normal [facility] Telephoneon 06-03-2023 Telephone [id number] Vinayak Madrigal 1950 M Date Provider Department Center 06/03/2023 NICOLETTE PETERS Family History Problem Relation Age of Onset Heart attack Father Coronary artery disease Father Coronary artery disease Brother Stroke Brother Family Status - Relation Status Age at Father Brother [facility] Office Visiton 05-22-2023 Follow-up visit [id number] Vinayak Madrigal 1950 M Date Provider Department Center 05/22/2023 NICOLETTE PETERS Family History Problem Relation Age of Onset Heart attack Father Coronary artery disease Father Coronary artery disease Brother Stroke Brother Family Status - Relation Status Age at Father Brother Level of Service:73819 SD OFFICE/OUTPATIENT ESTABLISHED MOD [facility] 30-39 MIN Reason for Visit and Comments: Follow-up [096753] - 6 month follow up [facility] US ABD AORTA DIAGNOSTICon US ABD AORTA [...] authenticated by: MODE GARAY Date: 2022-12-27 15:45 [facility] US ABD AORTA DIAGNOSTICon US ABD [...] LUIS MANUEL MCCORMICK Date: 2022-01-16 07:21 Normal [facility] Coding Summary.on 02-12-2019 Coding Summary. CODING DATE: 02/12/2019 [facility] STATUS: Home (Routine DC) PAYOR: Medicare APC [...] Type 2 diabetes mellitus without complications Z79.01 buttermaker helper (current) use of anticoagulants Z79.82 buttermaker helper (current) use of aspirin Z79.84 nursing home (current) use of oral hypoglycemic drugs PYMT PROC APC STAT DESCRIPTION DOCTOR NAME DATE NOTE: The code number assigned matches the documented diagnosis and / or procedure in the patient's chart. However, the narrative phrase printed from the coding software may appear abbreviated, or result in slightly different terminology. Coded By: Analia Le Date Saved: 02/12/2019 12:49 pm Normal [facility] Main OR Intraoperative Recor romaine 02-06-2019 Main OR Intraoperative Record IntraOp Document Type FTURO Summary Primary Physician: Glenn Hoyt MD, Eric Nguyen Finalized Date/Time: 02/06/19 14:00:49 Pt. Name: VINAYAK MADRIGALO.B./Sex: 1950 Male Med Rec #: [id number] Physician: Glenn Hoyt MD, Eric Nguyen Financial #: [id number] Pt. Type: O Room/Bed: / Admit/Disch: 02/06/19 12:31:57 - Institution: Case Times FTURO Entry 1 Patient Times In Room 02/06/19 13:43:00 Out Room 02/06/19 14:02:00 Procedure Times Start 02/06/19 13:47:00 Stop 02/06/19 13:56:00 Anesthesia Times Last Modified By: Nathaly TEJADA, MELYOR, Jessica 02/06/19 14:00:08 Case Attendance FTURO Entry 1 Entry 2 Entry 3 Case Attendee Glenn Hoyt MD, Eric Andersen RN, CNOR, Cidra CST, Ping Lopez Role Performed Surgeon - Primary Periodicals Clerk - Primary Scrub - Primary Time In [...] with rezum Primary Procedure Yes Primary Surgeon Glenn Hoyt MD, Eric Nguyen Start 02/06/19 13:47:00 Stop 02/06/19 13:56:00 Anesthesia Type Local Surgical Service Urology Wound Class 2 - Clean-Contaminated Last Modified By: Nathaly TEJADA, MELYOR, Jessica 02/06/19 14:00:11 General Case Data FTURO Pre-Care [...] Position Verified Availability Equipment, Medication Time Out Eric Elizabeth Jr., MD, Verified (If Participants DREW Andersen RN, Applicable) Ana Lopez CST, Gwen E Time Out Complete 02/06/19 13:46:00 Allergies Reviewed? [...] DREW Andersen RN, Ruthann 02/06/19 14:00 Normal [facility] Main OR Preoperative Recordo n 02-06-2019 Main OR Preoperative Record Holding Area Document Type FTURO Summary Primary Physician: Eric Elizabeth Jr., MD Finalized Date/Time: 02/06/19 13:49:45 Pt. Name: VINAYAK MADRIGAL Logan ZamoraB./Sex: 1950 Male Med Rec #: [id number] Physician: Eric Elizabeth Jr., MD Financial #: [id number] Pt. Type: O Room/Bed: / Admit/Disch: 02/06/19 [...] of Pain: No Comment: Skin Integrity Intact, [place], Warm, & Dry Vitals - EU Blood Pressure 124/74 Pulse 60 bpm Respirations 18 br/min SPO2 RN Reviewed Yes Last Modified By: DREW Andersen RN, Ruthann 02/06/19 13:49:43 Finalized By: DREW Andersen RN, Ruthann Document Signatures Signed By: Sharon Lawler LPN 02/06/19 12:50 DREW Andersen RN, Ruthann 02/06/19 13:49 Normal [facility] Operative Reporton 9 Operative Report Patient: VINAYAK MADRIGAL Age: 68 years Sex: Male : 1950 Associated Diagnoses: None Author: Glenn Hoyt MD, Eric Nguyen Procedure Operative Information Details: Date/ Time: 02/06/19 13:57:00. Pre-Op Dx: BPH w/ LUTS - N40.1. Post-Op Dx: Same. Anesthesia Type: Local. Procedure: REZUM ablation of the prostate. Complications: None. Risks/Benefits/Informe d Consent: Surgical risks, benefits, details of the [...] satisfactory condition, Discharge instructions are provided. Normal [facility] Comment on above: Result Comment: Elec tronically Signed By: Glenn Hoyt MD, Eric Kearney.nataliya\Date and Time Signed: 02/06/19 13:57 EDT Clinical Notes 05-22-2023 to 04-08-2024 Note Date & Type Note Facility 04-08-2024 Note Cardiovascular Medic [facility] SUBJECTIVE Chief Complaint Patient presents with Atrial Fibrillation Vinayak Madrigal is a 73 y.o. male here for follow-up after his recent ablation. HPI PMHx: essential hypertension, paroxysmal atrial fib s/p PVI ablation and CTI aflutter ablation 03/13/24, JESS with BiPAP, diabetes type 2 He has been feeling well since his ablation procedure. His activity enduance has improved. He was able to mow his entire law the other day without stopping which he hasn't been able to do for some time. He has occasional dizziness if he stands too quickly. Denies CP, dyspnea, orthopnea, PND, LE edema, palpitations, syncope, bleeding issues. Patient Active Problem List Diagnosis Allergic rhinitis [...] (CMS/HCC) Benign prostatic hyperplasia without urinary obstruction Abdominal aortic aneurysm without rupture (CMS/HCC) Abdominal aortic ectasia (CMS/HCC) Abnormal CT of the chest Diabetic peripheral neuropathy associated with type 2 diabetes mellitus (CMS/HCC) Hypertensive heart disease without heart failure Lung nodules LVH (left ventricular hypertrophy) Mild nonproliferative diabetic retinopathy associated with type 2 diabetes mellitus ([facility]/HCC) Obesity (BMI 30-39.9) Uncontrolled type 2 diabetes mellitus with hyperglycemia ([facility]/HCC) SVT (supraventricular tachycardia) ([facility]/HCC) Short-term memory loss Tremor of both hands JESS (obstructive sleep apnea) Past Medical History: Diagnosis Date Aneurysm ([facility]/HCC) Atrial fibrillation ([facility]/HCC) Diabetes mellitus ([facility]) Hyperlipidemia Hypertension Obesity BMI 33.23 Family History Problem Relation Name Age of Onset Heart attack Father Coronary artery disease Father Coronary artery disease Brother Stroke Brother Social History Tobacco Use Smoking status: Former Types: Cigarettes Smokeless tobacco: Never Substance Use Topics Alcohol use: Not Currently Drug use: Never Allergies Allergen Reactions Penicillins Rash and Unknown ROS Musculoskeletal: Positive for arthritis, back pain and myalgias. All other systems reviewed and are negative. OBJECTIVE Visit Vitals BP 146/78 Pulse 65 Wt 111 kg (245 lb) SpO2 98% BMI 33.23 kg/m??? Smoking Status Former BSA 2.37 m??? Medications: Current Outpatient Medications: amiodarone (Pacerone) 200 mg tablet, Take 1 tablet (200 mg) by mouth once daily as directed., Disp: 90 tablet, Rfl: 3 amLODIPine-benazepriL (Lotrel) 10-20 mg capsule, Take 1 capsule by mouth in the morning., Disp: , Rfl: apixaban (Eliquis) 5 mg tablet, Take 5 mg by mouth in the morning and at bedtime., Disp: , Rfl: atorvastatin (Lipitor) 40 mg tablet, Take 1 tablet (40 mg) by mouth in the morning., Disp: 90 tablet, Rfl: 3 carvedilol (Coreg) 6.25 mg tablet, Take 1 tablet (6.25 mg) by mouth with breakfast and with evening meal., Disp: 60 tablet, Rfl: 0 celecoxib (CeleBREX) 200 mg capsule, Take 200 mg by mouth in the morning. As needed, Disp: , Rfl: glimepiride (Amaryl) 2 mg tablet, Take 2 mg by mouth 2 times daily., Disp: , Rfl: SITagliptin phosphate (Januvia) 50 mg tablet, Take 50 mg by mouth in the morning., Disp: , Rfl: Physical Exam Constitutional: Appearance: Normal appearance. HENT: Head: Normocephalic and atraumatic. Right Ear: External ear normal. Left Ear: External ear normal. Eyes: Extraocular Movements: Extraocular movements intact. Pupils: Pupils are equal, round, and reactive to light. Neck: Vascular: No carotid bruit. Cardiovascular: Rate and Rhythm: Normal rate and regular rhythm. Pulses: Normal pulses. Heart sounds: Normal heart sounds. Pulmonary: Effort: Pulmonary effort is normal. Breath sounds: Normal breath sounds. Abdominal: General: Bowel sounds are normal. Palpations: Abdomen is soft. Musculoskeletal: General: Normal range of motion. Cervical back: Neck supple. Right lower leg: No edema. Left lower leg: No edema. Skin: General: Skin is warm and dry. Neurological: General: No focal deficit present. Mental Status: He is alert and oriented to person, place, and time. Psychiatric: Mood and Affect: Mood normal. Behavior: Behavior normal. Thought Content: Thought content normal. Judgment: Judgment normal. Labs: 03/05/24 CBC- unremarkable Cr 1.55, BUN 21, K 4.7, Na 139, eGFR 44 Labs 08/2022 CBC - unremarkable C (more content not included)... [facility] 03-13-2024 Note Patient: Vinayak Madrigal Procedure Summary Date: 03/13/24 Room / Location: [facility] / [facility] (Cath) Anesthesia Start: 817 Anesthesia Stop: 1120 Procedures: Ablation a-fib paroxysmal TK during EP case Diagnosis: Paroxysmal atrial fibrillation (CMS/HCC) Atrial flutter, unspecified type (CMS/HCC) (Paroxysmal atrial fibrillation (CMS/HCC) [I48.0]) (Atrial flutter, unspecified type (CMS/HCC) [I48.92]) Providers: Pantera Tomlin MD Responsible Provider: Dana Huertas MD Anesthesia Type: general ASA Status: 3 Anesthesia Type: general Vitals Value Taken Time BP 123/78 03/13/24 1254 Temp 36.4 ???C (97.5 ???F) 03/13/24 1115 Pulse 69 03/13/24 1321 Resp 18 03/13/24 1321 SpO2 94 % 03/13/24 1321 Vitals shown include unvalidated device data. Anesthesia Post Evaluation Patient location during evaluation: PACU Patient participation: complete - patient participated Level of consciousness: awake and alert Pain management: adequate There was medical reason for not using a multimodal analgesia pain management approach.Airway patency: patent Cardiovascular status: acceptable Respiratory status: acceptable and nasal cannula Hydration status: acceptable Patient is hemodynamically stable and is able to be discharged from PACU per anesthesia protocol. There were no known notable events for this encounter. [facility] 03-13-2024 Note Patient: Vinayak Madrigal Procedure Summary Date: 03/13/24 Room / Location: [facility] EP / [facility] (Cath) Anesthesia Start: 817 Anesthesia Stop: 0 Procedures: Ablation a-fib paroxysmal TK during EP case Diagnosis: Paroxysmal atrial fibrillation (CMS/HCC) Atrial flutter, unspecified type (CMS/HCC) (Paroxysmal atrial fibrillation (CMS/HCC) [I48.0]) (Atrial flutter, unspecified type (CMS/HCC) [I48.92]) Providers: Pantera Tomlin MD Responsible Provider: Dana Huertas MD Anesthesia Type: general ASA Status: 3 Anesthesia Post Transport Note Transport to: PACU O2 Route: nasal cannula Oxygen Flow (L/min): 6 Patient Monitor: transport monitor Transport monitor type: ECG, NIBP, SpO2 and Art Line Transport: uneventful Patient condition is: stable [facility] 03-13-2024 Note ATRIAL FIBRILLATION ABLATION PROCEDURE NOTE DATE OF PROCEDURE: 03/13/2024 PERFORMING PHYSICIAN: Dr. Pantera Tomlin CONSENT: Patient NAME OF THE PROCEDURE: Pulmonary Vein Isolation and Comprehensive EP study. INDICATIONS FOR PROCEDURE: 1. Persistent atrial fibrillation. FLUROSCOPY: 1.3m/ 12mGy. EBL: 15cc SPECIMEN REMOVED: None PROCEDURES PERFORMED: 1. Sonosite guided venous access as noted below and images stored in PACS. 2. Comprehensive EP study and catheter ablation for persistent atrial fibrillation through the pulmonary vein isolation technique. This includes right atrial recording and pacing, His bundle recording and right ventricular recording and pacing. 3. Intracardiac EP 3D mapping. 4. Intracardiac echocardiogram 5. Left atrial and coronary sinus recording and pacing to assess ablation results. 6. Left heart pressure measurements and LV pacing and recording. 7. Induction of arrhythmia and testing of ablation results using intravenous adenosine infusion. 8. Fluroscopy. 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 Pt feels tired. He converted to Sinus on amio and thereafter had recurrence. Of late, he noticed fatigue which has been progressive in Afib. He opted to undergo catheter ablation. PROCEDURE NOTE: On the day of presentation, he was noted to be in Afib and TK was done to rule out AZAEL thrombus. Risks, benefits and alternatives of the procedure were discussed with the patient and family who agreed to proceed. Please refer to my consult note for details of the discussion and of indications. The patient was prepped and draped following which four venous access was procured on right side as noted below. Ultrasound was used to determine the course and patency of the femoral veins on both sides and they were noted to be patent and the image stored in PACS. After infiltration with 1% lidocaine, 4 venous sheaths were placed in the right as noted below and a radial arterial line was placed by Anesthesia team. RFV: 8Fx3, [employer] ThermoCool SF Bi-Directional over SL1/ Vizigo, SL1: Pentaray, CS Catheter (EZ Steer). 9F: ICE catheter, Following venous access, heparin bolus was given followed by continuous intravenous drip to target ACT around 350. An intracardiac ultrasound catheter was inserted into the right atrium to examine the right atrial anatomy, atrial septum, pulmonary vein anatomy and to monitor for pericardial effusion and guide transseptal access. The LA and RA was only moderately dilated. At baseline, there was no pericardial effusion and no AZAEL clot but noted a very prominent Coumadin ridge. Esophagus was mapped using the proteonomixSOUND 3D mapping software and noted to be towards the LSPV and LIPV. Transeptal access was procured with ICE guidance using a SL-1 sheath and Jinny needle. Following this, pentaray catheter was advanced and the multipolar mapping performed of the LA creating a geometry. After FAM geometry was performed, a 2nd transseptal was performed with an SL1 sheath using a Jinny needle. Following transseptal, the SL1 sheath was removed and Vizigo sheath was advanced over which the ablation catheter ST-SF thermocol ablation catheter was advanced. Ablation was then performed. A temperature probe was advanced to the middle of the LA to monitor the temperature. Ablation was performed using 40 desai for 10-12s in the anterior LA and 5-8seconds in the posterior wall and roof area. After completion of the left sided WACA, no signals were noted in the LSPV or LIPV and entrance and exit block was noted. At this time, the patient converted to sinus. After this, I proceeded to perform ablation of the right-sided vein. Bipolar voltage assessment was made and LA was noted to be healthy. Following right WACA, the veins were isolated. I ensured that on the anterior aspect of right WACA and in leola area, phrenic capture was ruled out before any ablation was performed. A temperature elevation was noted from a baseline of 35.5 to 35.8C. After this, perivenous pacing was performed around each individual vein, ensuring there was isolation. Adenosine was given a 12 mg dose and AV block and hypotension was noted. Reconnection was seen and needed repeat ablation around the roof of the RSPV and leola. LV pacing was performed and no VA conduction was seen. I proceeded to perform CTI ablation. Using ICE, the His and IVC junctions were marked with 3D CARTO mapping software. Vizigo sheath was khadra to the right side. Ablation was performed on the CTI line starting at the tricuspid valve aspect. 40W was utilized and I extended the ablation from the TV to the IVC aspect. Following the completion of the line, the patient did have bidirectional block. Bidirectional block was noted with medial to lateral pacing with a timingof 153ms and from lateral to medial was 16 (more content not included)... [facility] 03-13-2024 Note Airway Date/Time: 03/13/2024 8:39 AM Urgency: elective Airway not difficult General Information and Staff Patient location during procedure: OR Anesthesiologist: Dana Huertas MD Resident/ROLL FORMING SUPERVISOR/CAA: Simeon Garcia DO Performed: resident/ROLL FORMING SUPERVISOR/KARSTEN Indications and Patient Condition Indications for airway management: anesthesia Spontaneous Ventilation: absent Sedation level: deep Preoxygenated: yes Patient position: sniffing Mask difficulty assessment: 1 - vent by mask Final Airway Details Final airway type: endotracheal airway Successful airway: ETT Cuffed: yes Successful intubation technique: direct laryngoscopy Facilitating devices/methods: intubating stylet Endotracheal tube insertion site: oral Blade: Sorto Blade size: #2 ETT size (mm): 7.5 Cormack-Lehane Classification: grade I - full view of glottis Placement verified by: chest auscultation and capnometry Measured from: lips ETT to lips (cm): 22 Number of attempts at approach: 1 Number of other approaches attempted: 0 Additional Comments Upper and lower dentures removed before laryngoscopy. Given to circulating RN in a denture container. [facility] 03-13-2024 Note Arterial Line: Date/Time: 03/13/2024 7:55 AM An arterial line was placed Procedure performed using surface landmarks.in the pre-op for the following indication(s): continuous blood pressure monitoring and blood sampling needed. A 20 gauge (size), 1 and 3/4 inch (length), Arrow (type) catheter was placed, Seldinger technique used , into the Left radial artery, secured by Tegaderm (and biodesc). Events: patient tolerated procedure well with no complications. Medications Administered lidocaine (XYLOCAINE) 1 % SubQ - infiltration 0.5 mL - 03/13/2024 7:55:00 AM Staffing Performed: resident/NEGIN/KARSTEN Anesthesiologist: Dana Huertas MD Resident/ROLL FORMING SUPERVISOR: Simeon Garcia DO Performed by: Simeon Garcia DO Authorized by: Dana Huertas MD [facility] 03-13-2024 Note Patient: Vinayak Madrigal Procedure Information Date/Time: 03/13/24 0800 Procedure: Ablation a-fib paroxysmal Location: [facility] EP / [facility] (Cath) Providers: Pantera Tomlin MD Relevant Problems Anesthesia (+) JESS (obstructive sleep apnea) (Endorses CPAP use) (-) History of anesthesia complications Cardio Activity: > 4 METs Echo: EF 60%, moderately dilated RV, normal RV systolic function, RVSP 44, mild/mod MR (+) Atrial fibrillation (CMS/HCC) (+) Benign essential hypertension (+) SVT (supraventricular tachycardia) (CMS/HCC) (+) Ventricular premature beats Endo (+) Type 2 diabetes mellitus without complication (CMS/HCC) Pulmonary Former 30 to 40 pack-year smoker. Quit in 2000 Endocrine/Metabolic (+) Diabetes mellitus (CMS/HCC) (A1c 8.4%) (+) Diabetic peripheral neuropathy associated with type 2 diabetes mellitus (CMS/HCC) (+) Obesity (BMI 30-39.9) Encounter Date: 03/13/24 Electrocardiogram, 12-lead Result Value Ventricular Rate 71 QRS DURATION 110 QT Interval 448 QTC CALCULATION(BAZETT) 486 R-Maskell -7 T Wave Maskell 8 Impression Atrial fibrillation with a competing junctional pacemaker with premature ventricular or aberrantly conducted complexes Prolonged QT Abnormal ECG When compared with ECG of 15-OCT-2023 12:26, Atrial fibrillation has replaced Sinus rhythm Allergies Allergen Reactions ??? Penicillins Rash and Unknown Clinical information reviewed: Tobacco Allergies Meds Med Hx Surg Hx Fam Hx Soc Hx Physical Exam Airway Mallampati: III TM distance: <3 FB Neck ROM: full Cardiovascular Rhythm: irregular Rate: normal Dental (+) upper dentures, lower dentures Pulmonary - normal exam Abdominal (+) obese Anesthesia Plan ASA 3 general (GETA with arterial line plus standard ASA monitors. Esophageal temperature monitoring) The patient is not a current smoker. Education provided regarding risk of obstructive sleep apnea. intravenous induction Trial extubation is planned. Anesthetic plan and risks discussed with patient. Use of blood products discussed with patient who consented to blood products. Plan discussed with attending. Additional Equipment Requests [facility] 03-12-2024 Note PROCEDURE: Without IV contrast, images of the brain were performed. FINDINGS: Normal cortical volume. Commensurate ventricular size with the cerebral sulci. No acute or subacute major vessel ischemia. No intracranial hemorrhage. Mild periventricular, subcortical white matter hypodense greatest involvement bi-frontal regions left greater than right. IMPRESSION: 1. No intracranial hemorrhage, acute or subacute major vessel ischemia. 2. Mild small vessel ischemic changes. TRANSCRIBED BY: ELECTRONICALLY SIGNED BY: Jermaine Coles MD Not Available 03-04-2024 Note ARRIVAL TIME 0630 FO R PROCEDURE DATE 03/13 HOLD ELIQUIS ON 03/11 MEDICATIONS TO TAKE DAY OF SURGERY WITH SIP OF WATER AMIODARONE COREG PT AGREES TO GO TO [facility] FOR LABS ON 03/05 HOLD VITAMINS AND SUPPLEMENTS 5 DAYS PRIOR TO PROCEDURE HOLD ALL ANTI INFLAMMATORIES ETC:MOTRIN, ADVIL, ALEVE, FOR 5 DAYS PRIOR TO PROCEDURE IF YOU ARE GOING HOME AFTER YOUR SURGERY OR PROCEDURE, FOR YOUR SAFETY, YOUR SURGERY WILL BE CANCELLED IF BOTH OF THE FOLLOWING ARE NOT AVAILABLE: An adult fire truck driver over the age of 18, that can receive information about your care after surgery, and drive you home. A responsible adult to stay with you for 24 hours in case of an emergency. Can be same as above. The highest risk of complications is within the first 24 hours after sedation/anesthesia. Nothing to eat or drink after midnight the night before surgery. This includes gum, candy, mints, and lozenges. No alcohol, marijuana, or tobacco products including vaping for 24 hours. Please brush your teeth; don't swallow the toothpaste or water. If you use dentures, wear them but do not use paste. Please leave any other removable dental hardware at home. Do not put in contact lenses. Do not wear perfume, make-up, nail libyan, or lotions on the day of your surgery or procedure. Follow skin-prep/wipe instructions as below if required. Bring with you: *Insurance card *Photo ID *Medication list *Co-pay for visit/prescriptions If applicable: *Rescue inhalers *Green bracelet from lab *CPAP or BiPAP machine, if staying overnight *Any braces, splints, or equipment ordered preoperatively *Remote controls for implanted devices Leave at home: *Purse/Wallet/Melgoza- unless needed for co-pay *Cell phone (can leave with family/friend or place in locker if needed) *Jewelry (including piercings and wedding bands) *If not possible, ask the person who is waiting with you to keep them Children under the age of 12 will not be allowed into patient care areas. We will call you between 3pm and 4pm the day before your surgery to give you an arrival time. If you do not receive this call, have any questions, or need to make any changes, please call [phone]. Notify your surgeon if you develop any illness such as a cold, cough, fever, sore throat or vomiting between now and your surgery. Thank you for entrusting us with your care. [facility] Surgical Services Team [facility] 02-05-2024 Note Procedure: Multidetector CT Pulmonary Angiogram performed with IV contrast without complication, including 3 -D Maximum intensity projection reconstructions constructed under concurrent physician supervision on a independent workstation to optimize sensitivity for pulmonary emboli.. Automated exposure control was utilized. CTA CHEST W IV CONTRAST 02/07/2024 9:02 AM History: Atrial fibrillation pre or post ablation pre ablation pre ablation Findings: No thrombi within the left atrium or left atrial appendage Extensive coronary artery calcifications are demonstrated Left superior pulmonary vein 16 mm Left inferior pulmonary vein 15 mm Right superior pulmonary vein 15 mm Right inferior pulmonary vein 18 mm Multiple 3D reformatted images confirm the source data findings. IMPRESSION: Impression: There are 2 nodules within the right upper lobe which are contiguous with a total measurement of 16 mm. I recommend comparison any old outside studies to document stability. If none exist then I recommend PET/CT. Neoplasm not excluded There is bilateral centrilobular emphysema. No focal consolidation or pleural fluid Measurements detailed above for planning for atrial fibrillation ablation treatment Gas-filled dilated esophagus with some contrast distally of uncertain significance. Neoplasm not excluded. Consider upper endoscopy if indicated clinically All CT scans at this facility use dose modulation, iterative reconstruction, and/or weight based dosing when appropriate to reduce radiation dose to as low as reasonably achievable. Electronically signed: Michael Velez. Jhonny Vldelphine [facility] Comment on above: Order Comment: Ck wolf schedule prior to February 13 01-29-2024 Note [place] [facility] Consult Note Reason for visit: Afib 01/29/24 Patient here for H&P and to obtain consent for upcoming atrial fibrillation ablation procedure scheduled for 02/14/[address] Tomlin at [facility]. Denies chest pain, SOB, palpitations, lightheadedness/syncope, and bleeding on Eliquis. EKG 01/29/24 SR 12/11/23 patient was loaded with amiodarone and [...] Connections: Not on file Intimate Partner Violence: Unknown (12/27/2023) [place] Safety & Environment Fear of Current or Ex-Partner: Not on file Emotionally Abused: Not on file Physically Abused: Not on file Sexually Abused: Not on file Physically or Sexually Abused: Not on file Depression: Not on file Housing Stability: Not on file Utilities: Not on file Allergies: Allergies Allergen Reactions Penicillins Rash and Unknown Weight: 111kg Visit Vitals BP 154/80 (BP Location: Left arm, Patient Position: Sitting) Pulse 67 Ht 1.829 m (6') Wt 111 kg (245 lb) SpO2 94% BMI 33.23 kg/m??? Smoking Status Former BSA 2.37 m??? Meds: Current Outpatient Medications on File Prior to Visit Medication Sig Dispense Refill amiodarone (Pacerone) 200 mg tablet Take 1 tablet (200 mg) by mouth once daily as directed. 90 tablet 3 amLODIPine-benazepriL (Lotrel) 10-20 mg capsule Take 1 [...] 2 mg by mouth 2 times daily. multivitamin with minerals tablet Take 1 tablet by mouth in the morning. Synjardy 12.5-1,000 mg Take 1 tablet by mouth 2 times daily. linagliptin-metformin (Jentadueto XR) 2.5-1,000 mg tablet, IR - ER, biphasic 24hr Jentadueto XR 2.5 mg-1,000 mg tablet, extended release No current facility-administered medications on file prior to visit. ROS: Review of Systems Constitutional: Positive for malaise/fatigue and night sweats. Respiratory: Positive for wheezing. Musculoskeletal: Positive for muscle cramps and muscle weakness. Neurological: Positive for excessive daytime sleepiness and loss of balance. All other systems [...] no clubbing Labs: @LABRESULTS@ No results found f (more content not included)... [facility] 12-11-2023 Note [place] [facility] Consult Note Reason [...] Value Ventricular Rate 81 Atrial Rate 81 SD Interval 202 QRS DURATION 114 QT Interval 436 QTC CALCULATION(BAZETT) 506 P Maskell 51 R-Maskell 0 T Wave Maskell 38 Impression Sinus rhythm with occasional Premature ventricular (more content not included)... [facility] 10-15-2023 Note EKG completed and pt in NSR. Dr. Tomlin cancelled procedure. [facility] 09-11-2023 Note [place] [facility] Consult Note Reason for visit: Afib Date of Telehealth Visit: 09/11/2023 The patient was notified that using 3rd green party telecommunication application (e.g., [employer]) is not HIPPA compliant and may carry some privacy risks. Yes The visit was conducted [id number] with the use of audio and video [...] Amio and then (more content not included)... [facility] 05-22-2023 Note [place] [facility] - [facility] Subjective Vinayak Madrigal is a 72 [...] dilation of c (more content not included)... [facility] Summary Purpose Family History No [...] and content) DATE CREATED AUTHOR 07/30/2018 [facility] DATE CREATED AUTHOR AUTHOR'S ORGANIZ ATION 05/31/2019 [facility] DATE CREATED AUTHOR AUTHOR'S ORGANIZ ATION 01/10/2023 [facility] DATE CREATED AUTHOR AUTHOR'S ORGANIZ ATION 04/09/2024 [facility] DATE CREATED AUTHOR AUTHOR'S ORGANIZ ATION 05/05/2024 [facility] FOR RECORDS PERTAINING TO PATIENTS WHO ARE [...] BE BASED ON THE PRIMARY CLINICAL RECORDS. [facility] [employer] provides no warranty or guarantee of the accuracy or completeness of information in this document.
[2024-05-06 13:36] LABS: Thyroid Stimulating Hormone 4.341 uIU/mL (0.358-3.740)
[2024-05-07 14:10] LABS: Albumin 3.9 g/dL (2.9-4.4); Alpha-1-Globulin 0.1 g/dL (0.0-0.4); Alpha-2-Globulin 0.9 g/dL (0.4-1.0); Gamma Globulin 0.8 g/dL (0.4-1.8); Protein, Total 6.9 g/dL (6.0-8.5)
== END 2024-05-06 12:39 | disposition home or self-care (01) ==
LOC: LAB 12:40
PROVIDERS: PCP Internal Medicine; Visit Provider Psychiatry & Neurology Neurology
DX: R25.1 Tremor, unspecified (principal); G60.9 Hereditary and idiopathic neuropathy, unspecified
CPT/HCPCS: 36415; 82607; 82746; 84155; 84165; 84443

== ENCOUNTER 2024-05-27 09:01 | Outpatient (OUT) | payer MEDICARE, OTHER, SELFPAY ==
--- NOTE | 2024-05-27 09:00 | RT_ITS ---
[facility] Test Date: 2024-05-27 Pat Name: VINAYAK ANN Department: Room: - Gender: Male Hoist Operator: Nara Walker RRT : 1950 Requested By: Gigi Singleton Order Number: [id number] Reading MD: Gigi Singleton Interpretive Statements Pulmonary function testing was completed according to ATS criteria. Findings were considered accurate and reproducible. Both pre- and post-bronchodilator values utilized for spirometry. Spirometry (based on pre-bronchodilator values): -FEV1/FVC: Low normal @ 72% -FEV1: Normal @ 81% -FVC: Normal @ 82% -[id number]%: Reduced @ 76% -There is no significant bronchodilator response. Lung volumes by plethysmography (based on pre-bronchodilator values): -RV: Increased @ 122% -TLC: Normal @ 98% Diffusion capacity: -DLCO: Severe reduction @ 43% when corrected for Hb 15.1g/dL Flow-volume loop: -Moderate obstructive pattern Impressions: -Spirometry trends towards a mild-moderate obstruction pattern. There is no bronchodilator response. An elevated RV suggests air trapping. There is a severely reduced diffusion capacity.nOverall study is compatible with COPD/emphysema. Patient is at risk of ambulatory desaturations with a decreaed DLCO. Clinical correlation required. Electronically Signed On 05-27-2024 17:06:32 EDT by Gigi Singleton
[2024-05-27 09:07] LABS: Hemoglobin 15.1 g/dL (14.0-18.0)
--- OUTSIDE RECORDS SUMMARY | 2024-05-27 09:23 | XMS_ITS ---
Patient Summarization (C-CDA 2.1 CCD) Created on: May 27, 2024 VINAYAK MADRIGAL : 1950 Sex: Male Author Organization Sample organization Care Team Providers Care Cementer Helper Name Role Phone PHYSICIAN, DEFAULT Unavailable Unavailable PHYSICIAN, DEFAULT Unavailable Unavailable PHYSICIAN, DEFAULT Unavailable Unavailable PHYSICIAN, DEFAULT Unavailable Unavailable SAVANNA, BELÉN Admitting Unavailable SAVANNA, BELÉN Attending Unavailable VICK, DR FELICIANO Primary Care Unavailable TREYEBCHIQUITA, DR MODE Souza Consulting Unavailable SAVANNA, BELÉN [...] PANTERA Referring Unavailable MEHUL, PANTERA Referring Unavailable BENEDICT, DARREN Brito Attending Unavailable HICKMAN, BRADEN Martin Attending Unavailable HEMMERWILLY Attending Unavailable LEANNE, BENNIE Attending Unavailable LEANNE, BENNIE Referring Unavailable LEANNE, BENNIE Referring Unavailable LEANNE, BENNIE Attending Unavailable LEANNE, BENNIE Attending Unavailable SAMSA, JUANI David Referring Unavailable Allergies Allergy Classification Reported Allergen(s) Allergy Type Date of Onset Reaction(s) Facility (2 sources) Penicillins; Translations: [PENICILLINS] Drug allergy (disorder) 12-27-2020 [facility] Rep[facility] Encounters Encounter Date Encounter Type Care Provider Facility Start: 05-12-2024 End: 05-12-2024 ambulatory JUANI HOOKER Not Available Start: 05-06-2024 End: 05-06-2024 ambulatory BENNIE LEANNE Not Available Start: 05-05-2024 End: 05-05-2024 ambulatory BENNIE LEANNE Not Available Start: 04-28-2024 End: 04-28-2024 ambulatory BENNIE PERDOMO Not Available Start: 04-08-2024 End: 04-08-2024 ambulatory BELÉN SAVANNA [facility] Start: 03-13-2024 ambulatory [facility] Start: 03-13-2024 End: 03-13-2024 ambulatory [facility] Start: 03-12-2024 End: 03-12-2024 ambulatory BENNIE PERDOMO Not Available Start: 03-10-2024 End: 03-10-2024 ambulatory BENNIE PERDOMO Not Available Start: 02-05-2024 End: 02-05-2024 ambulatory [facility] Start: 01-29-2024 End: 01-29-2024 ambulatory [facility] Start: 01-07-2024 End: 01-07-2024 ambulatory WILLY MILLS Not Available Start: 12-11-2023 End: 12-11-2023 ambulatory [facility] Start: 11-20-2023 End: 11-20-2023 ambulatory DARREN MCMULLEN Not Available Start: 10-15-2023 End: 10-15-2023 ambulatory [facility] Start: 09-20-2023 End: 09-20-2023 ambulatory BRADEN HICKMAN Not Available Start: 09-11-2023 End: 09-11-2023 ambulatory [facility] Start: 05-22-2023 End: 05-22-2023 [facility] Start: 12-27-2022 End: 12-28-2022 ambulatory BELÉN HAWLEYCKER Facility:[facility] Start: 01-14-2022 End: 01-15-2022 ambulatory RAMON BRISENO Facility:[facility] Start: 07-15-2018 End: 07-16-2018 Patient encounter DEFAULT PHYSICIAN Facility:[facility] Start: 06-11-2018 End: 06-12-2018 Patient encounter DEFAULT PHYSICIAN Facility:[facility] Payers Date Payer Category Payer [employer] ( and others) [id number] 1959 Medicare [id number] 1950 Unknown [id number] 1950 Unknown [id number] 1950 Unknown [id number] 1950 Unknown [id number] 1950 Unknown [id number] 1950 Unknown [id number] [id number] 1950 Unknown [id number] [id number] 1950 Unknown [id number] [id number] 1950 Unknown [id number] [id number] 1950 Unknown [id number] [id number] 1950 Unknown [id number] Unknown Problems Active Problems Problem Classification Problem [...] Test Name Value Interpretation Reference Range Facility CT CHEST WO IV CONTRASTon CT CHEST WO IV CONTRAST CT - CT CHEST WITHOUT CONTRAST Reason for exam: Three month follow up lung nodules, no current complaints Technical: Spiral images were obtained through the chest. IV Contrast: None. FINDINGS: Chest wall: No soft tissue abnormalities. No significant rib lesions. Thyroid: The included portion is unremarkable. Heart: Normal size. No pericardial abnormalities. Coronary Artery Calcification: Present in all vessels. Thoracic aorta: No aneurysm or dissection. Mediastinum and [place]: No masses or lymphadenopathy. There is a calcified pretracheal lymph node. Lungs: 2 juxtaposed 8 mm nodules in the subpleural area of the right middle lobe lateral segment are again noted, unchanged from 08/09/2023. 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 No new nodules have appeared. Pleura: Negative for effusion, plaques or pleural nodules. Upper abdomen included on study: No significant findings. Impression: Stable right middle lobe nodules. Stable peripheral interstitial lung disease compared to 08/09/2023. Coronary artery disease. No new findings. All CT scans at this institution are performed using dose optimization techniques as appropriate for the performed exam including the following: Automated exposure control Adjustment of the mA and/or kV according to patient size Use of iterative reconstruction technique Dictated on: 05/12/2024 5:23 PM This report has been electronically signed and approved by the interpreting Radiologist. Electronically Signed Gilmer Zapata M.D. 2024-05-12 17:28:56 Normal Not Available Comment on above: Order Comment: 3 sun follow up. Due in May LUNG NODULES 3 MONTH F/U Follow-Upon 04-08-2024 Follow-Up [id number] Vinayak Madrigal 1950 M Date Provider Department Center 04/08/2024 Devin-BELÉN CORRALES LUZ MARIA Velazquez Family History Problem Relation Age of Onset Heart attack Father Coronary artery disease Father Coronary artery disease Brother Stroke Brother Family Status - Relation Status Age at Father Brother Level of Service:91299 [place] OFFICE/OUTPATIENT ESTABLISHED MOD MDM 30 MIN Reason for Visit and Comments: Atrial Fibrillation [80] Normal [facility] Telephoneon 03-20-2024 Telephone [id number] Vinayak Madrigal 1950 Date Provider Department Center 03/20/2024 Krishna-CLAIRE ARTEAGA [facility] [place] Heart[facility]AS Family History Problem Relation Age of Onset Heart attack Father Coronary artery disease Father Coronary artery disease Brother Stroke Brother Family Status - Relation Status Age at Father Brother Reason for Visit and Comments: week f/u post ablation [Other] Normal [facility] HPon 03-13-2024 [facility] Electrophysiology Consult Note Reason for visit: Afib 01/29/24 Patient here for H&P and to obtain consent for upcoming atrial fibrillation ablation procedure scheduled for 02/14/[address] Tomlin at [facility]. Denies chest pain, SOB, palpitations, lightheadedness/syncop e, [...] on file Intimate Partner Violence: Unknown (12/27/2023) [place] Safety & Environment Fear of Current or [...] 110 QT Interval 448 QTC CALCULATION(BAZETT) 486 R-[place] -7 T Wave [place] 8 Impression Atrial fibrillation (more content not included)... Normal [facility] POCT GLUCOSE METER UNSOLICIT ED RESULTSon 03-13-2024 Glucose [Mass/Vol] 194 mg/dL High 70-105 [facility] Comment on above: Order Comment: Waive d Testing in the ED is performed under the ED CLIA certificate #[id number]. Result Comment: cedric k2 Performed By: #### L [id number] ####[facility] (BEAKER)[address] [facility] [place] [address] Glucose [Mass/Vol] 177 mg/dL High 70-105 [facility] Comment on above: Order Comment: Waive d Testing in the ED is performed under the ED CLIA certificate #[id number]. Result Comment: eryn padillar Performed By: #### L [id number] #### [facility] (Goby) [address] [place] [address] Glucose [Mass/Vol] 162 mg/dL High 70-105 [facility] Comment on above: Order Comment: Waive d Testing in the ED is performed under the ED CLIA certificate #[id number]. Result Comment: lmil [email or web address] Performed By: #### L [id number] ####[facility] (BEGoby)[address] [place] [address] PROTIME-INRon 03-13-2024 INR IN PPP BY COAGULATION ASSAY 0.99 Normal 0.90-1.10 [facility] Comment on above: Result Comment: ACCC P [...] Performed By: #### L [id number] #### [facility] (BEAKER) [address] [place] [address] PROTHROMBIN TIME (PT) IN PPP BY COAGULATION ASSAY 13.1 Seconds Normal 12.3-14.8 [facility] Comment on above: Performed By: #### L [id number] #### [facility] ([facility]AKER) [address] [place] [address] Prep for Procedureon 024 Prep for Procedure [id number] ,Nov1950 M Date Provider Department Center 03/13/20241986CLAIRE ARTEAGA [facility]ASC [facility] [place] [facility] Family History Problem Relation Age of Onset Heart attack Father Coronary artery disease Father Coronary artery disease Brother Stroke Brother Family Status - Relation Status Age at Father Brother Normal [facility] Orders Onlyon 02-22-2024 Orders Only [id number] ,Nov1950 M Date Provider Department Center 02/22/20241986-CLAIRE ARTEAGA [facility] [place] [facility] Family History Problem Relation Age of Onset Heart attack Father Coronary artery disease Father Coronary artery disease Brother Stroke Brother Family Status - Relation Status Age at Father Brother Normal [facility] [id number] 02-06-2024 [id number] ARRIVAL TIME GIVEN 0630 HOLD ELIQLUIS 02/11 [...] THE FOLLOWING ARE NOT AVAILABLE: 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 Do not wear perfume, make-up, nail citizen of [place], or lotions on the day of your [...] need to make any changes, please call [phone]. Notify your surgeon if you develop any illness such as a cold, cough, fever, sore throat or vomiting between now and your surgery. Thank you for entrusting us with your care. [facility] Surgical Services Team Normal [facility] Orders Onlyon 02-06-2024 Orders Only [id number] Vinayak Madrigal 1950 M Date Provider Department Center 02/06/2024 SHARON BLACKMON [facility] Timothy Family History Problem Relation Age of Onset Heart attack Father Coronary artery disease Father Coronary artery disease Brother Stroke Brother Family Status - Relation Status Age at Father Brother Normal [facility] Office Visiton 01-29-2024 Follow-up visit [id number] Vinayak Madrigal 1950 M Date Provider Department Center 01/29/2024 [facility]TERA [facility] Family History Problem Relation Age of Onset Heart attack Father Coronary artery disease Father Coronary artery disease Brother Stroke Brother Family Status - Relation Status Age at Father Brother Level of Service:01405 [place] OFFICE/OUTPATIENT ESTABLISHED HIGH MDM 40 MIN Normal [facility] Prep for Procedureon 024 Prep for Procedure [id number] 1950 M Date Provider Department Center 12/12/2023 Krishna-CLAIRE ARTEAGA [facility] [place] [facility] Family History Problem Relation Age of Onset Heart attack Father Coronary artery disease Father Coronary artery disease Brother Stroke Brother Family Status - Relation Status Age at Father Brother Normal [facility] Office Visiton 12-11-2023 Follow-up visit [id number] ,Nov1950 M Date Provider Department Center 12/11/2023 PANTERA ORTEGA [facility] Family History Problem Relation Age of Onset Heart attack Father Coronary artery disease Father Coronary artery disease Brother Stroke Brother Family Status - Relation Status Age at Father Brother Level of Service:45534 [place] OFFICE/OUTPATIENT ESTABLISHED HIGH MDM 40 MIN Normal [facility] Orders Onlyon 12-11-2023 Orders Only [id number] ,Nov1950 M Date Provider Department Center 12/11/2023 ISMAEL BOLES LUZ MARIA [facility] Family History Problem Relation Age of Onset Heart attack Father Coronary artery disease Father Coronary artery disease Brother Stroke Brother Family Status - Relation Status Age at Father Brother Normal [facility] Orders Onlyon 10-08-2023 Orders Only [id number] ,Nov1950 M Date Provider Department Center 10/08/2023 SHEILA EDEN [facility] [place] [facility] Family History Problem Relation Age of Onset Heart attack Father Coronary artery disease Father Coronary artery disease Brother Stroke Brother Family Status - Relation Status Age at Father Brother Normal [facility] Telemedicineon 09-11-2023 Telemedicine [id number] 1950 M Date Provider Department Center 09/11/2023 PANTERA ORTEGA [facility] Family History Problem Relation Age of Onset Heart attack Father Coronary artery disease Father Coronary artery disease Brother Stroke Brother Family Status - Relation Status Age at Father Brother Level of Service:26637 [place] PHYS/QHP TELEPHONE EVALUATION 11-20 MIN [facility] 36on 06-03-2023 36 Please tell him the echo and stress test from 05/29/2023 were ok. Please refer him to Dr Pantera Tomlin for consideration of AF ablation. Normal [facility] Telephoneon 06-03-2023 Telephone [id number] RohanNov1950 M Date Provider Department Center 06/03/2023 NICOLETTE PETERS LUZ MARIA [facility] Family History Problem Relation Age of Onset Heart attack Father Coronary artery disease Father Coronary artery disease Brother Stroke Brother Family Status - Relation Status Age at Father Brother [facility] Office Visiton 05-22-2023 Follow-up visit [id number] RohanNov1950 M Date Provider Department Center 05/22/2023 [facility] Family History Problem Relation Age of Onset Heart attack Father Coronary artery disease Father Coronary artery disease Brother Stroke Brother Family Status - Relation Status Age at Father Brother Level of Service:76492 [place] OFFICE/OUTPATIENT ESTABLISHED MOD MDM 30-39 MIN Reason for Visit and Comments: Follow-up [633896] - 6 month follow up [facility] US ABD AORTA DIAGNOSTICon US ABD AORTA [...] by: MODE GARAY Date: 2022-12-27 15:45 Normal [facility] US ABD AORTA DIAGNOSTICon US ABD [...] LUIS MANUEL MCCORMICK Date: 2022-01-16 07:21 Normal [facility] Coding Summary.on 02-12-2019 Coding Summary. CODING DATE: 02/12/2019 [facility] STATUS: Home (Routine DC) PAYOR: Medicare [...] Type 2 diabetes mellitus without complications Z79.01 intermission coordinator (current) use of anticoagulants Z79.82 intermission coordinator (current) use of aspirin Z79.84 intermission coordinator (current) use of oral hypoglycemic drugs PYMT PROC APC STAT DESCRIPTION DOCTOR NAME DATE NOTE: The code number assigned matches the documented diagnosis and / or procedure in the patient's chart. However, the narrative phrase printed from the coding software may appear abbreviated, or result in slightly different terminology. Coded By: Analia Le Date Saved: 02/12/2019 12:49 pm Normal [facility] Main OR Intraoperative Recor don 02-06-2019 Main OR Intraoperative Record IntraOp Document Type FTURO Summary Primary Physician: Eric Elizabeth Jr., MD Finalized Date/Time: 02/06/19 14:00:49 Pt. Name: VINAYAK MADRIGALO.B./Sex: 1950 Male Med Rec #: [id number] Physician: Glenn Hoyt MD, Eric Nguyen Financial #: [id number] Pt. Type: O Room/Bed: / Admit/Disch: 02/06/19 12:31:57 - Institution: Case Times FTURO Entry 1 Patient Times In Room 02/06/19 13:43:00 Out Room 02/06/19 14:02:00 Procedure Times Start 02/06/19 13:47:00 Stop 02/06/19 13:56:00 Anesthesia Times Last Modified By: Nathaly TEJADA, MELYOR, Jessica 02/06/19 14:00:08 Case Attendance FTURO Entry 1 Entry 2 Entry 3 Case Attendee Glenn Hoyt MD, Eric Andersen RN, CNOR, [place] [facility], Ping Lopez Role Performed Surgeon - Primary Regulatory Product Manager - Primary Scrub - Primary Time In [...] CYSTOSCOPY LOCAL Patient Identity Birthday, ID Band CONRAD(.) Verified (select at Check, Patient least 2): Participation Consents / H and P HandP, Surgery/Procedure Operative Site N/A Verified Consent Marking Verified Surgical Site Yes Laterality Verified n/a Verified Procedure Verified Yes Correct Patient Yes Position Verified Availability Equipment, Medication Time Out Eric Elizabeth Jr., MD, Verified (If Participants Nathaly TEJADA, DREW, Applicable) Ana Lopez CST, Gwen E Time [...] DREW Andersen RN, Ruthann 02/06/19 14:00 Normal [facility] Main OR Preoperative Recordo n 02-06-2019 Main OR Preoperative Record Holding Area Document Type FTURO Summary Primary Physician: Eric Elizabeth Jr., MD Finalized Date/Time: 02/06/19 13:49:45 Pt. Name: VINAYAK MADRIGAL Logan ZamoraB./Sex: 1950 Male Med Rec #: [id number] Physician: Eric Elizabeth Jr., MD Financial #: [id number] Pt. Type: O Room/Bed: / Admit/Disch: 02/06/19 [...] of Pain: No Comment: Skin Integrity Intact, [place], Warm, & Dry Vitals - EU Blood Pressure 124/74 Pulse 60 bpm Respirations 18 br/min SPO2 RN Reviewed Yes Last Modified By: DREW Andersen RN, Ruthann 02/06/19 13:49:43 Finalized By: DREW Andersen RN, Ruthann Document Signatures Signed By: Sharon Lawler LPN 02/06/19 12:50 DREW Andersen RN, Ruthann 02/06/19 13:49 Normal [facility] Operative Reporton 9 Operative Report Patient: VINAYAK [...] satisfactory condition, Discharge instructions are provided. Normal [facility] Comment on above: Result Comment: Elec tronically Signed By: Glenn Hoyt MD, Eric Nguyen\.nataliya\Date and Time Signed: 02/06/19 13:57 EDT Clinical Notes 05-22-2023 to 04-08-2024 Note Date & Type Note Facility 04-08-2024 Note Cardiovascular Medic [facility] SUBJECTIVE Chief Complaint Patient presents with Atrial [...] neuropathy associated with type 2 diabetes mellitus ([facility]) Hypertensive heart disease without heart failure Lung nodules LVH (left ventricular hypertrophy) Mild nonproliferative diabetic retinopathy associated with type 2 diabetes mellitus ([facility]) Obesity (BMI 30-39.9) Uncontrolled type 2 diabetes mellitus with hyperglycemia ([facility]CC) SVT (supraventricular tachycardia) ([facility]) Short-term memory loss Tremor of both hands JESS (obstructive sleep apnea) Past Medical History: Diagnosis Date Aneurysm ([facility]) Atrial fibrillation ([facility]) Diabetes mellitus ([facility]) Hyperlipidemia Hypertension Obesity BMI 33.23 Family History [...] - unremarkable C (more content not included)... [facility] 03-13-2024 Note Patient: Vinayak Madrigal Procedure Summary Date: 03/13/24 Room / Location: [facility] OB SCRUB TECH 1 / [facility] (Cath) Anesthesia Start: 817 [...] no known notable events for this encounter. [facility] 03-13-2024 Note Patient: Vinayak Madrigal Procedure Summary Date: 03/13/24 Room / Location: [facility] OB SCRUB TECH 1 EP / [facility] (Cath) Anesthesia Start: 817 [...] Line Transport: uneventful Patient condition is: stable [facility] 03-13-2024 Note ATRIAL FIBRILLATION ABLATION PROCEDURE NOTE [...] ThermoCool SF Bi-Directional over SL1/ Vizigo, SL1: Pentzelda, CS Catheter (EZ Steer). 9F: ICE catheter, [...] Coumadin ridge. Esophagus was mapped using the CARTOSOUND 3D mapping software and noted to be [...] anterior aspect of right WACA and in leoal area, phrenic capture was ruled out before [...] medial was 16 (more content not included)... [facility] 03-13-2024 Note Airway Date/Time: 03/13/2024 8:39 AM Urgency: elective Airway not difficult General Information and Staff Patient location during procedure: OR Anesthesiologist: Dana Huertas MD Resident/MORTGAGE LOAN SPECIALIST/CAA: Simeon Garcia DO Performed: resident/MORTGAGE LOAN SPECIALIST/KARSTEN Indications and Patient Condition Indications for airway [...] to circulating RN in a denture container. [facility] 03-13-2024 Note Arterial Line: Date/Time: 03/13/2024 7:55 [...] mL - 03/13/2024 7:55:00 AM Staffing Performed: resident/MORTGAGE LOAN SPECIALIST/KARSTEN Anesthesiologist: Dana Huertas MD Resident/MORTGAGE LOAN SPECIALIST: Simeon Garcia DO Performed by: Simeon Garcia DO Authorized by: Dana Huertas MD [facility] 03-13-2024 Note Patient: Vinayak Madrigal Procedure Information Date/Time: 03/13/24 0800 Procedure: Ablation a-fib paroxysmal Location: [facility] OB SCRUB TECH 1 EP / [facility] (Cath) Providers: Pantera Tomlin MD [...] 110 QT Interval 448 QTC CALCULATION(BAZETT) 486 R-[place] -7 T Wave [place] 8 Impression Atrial fibrillation with a competing [...] Plan discussed with attending. Additional Equipment Requests [facility] 03-12-2024 Note PROCEDURE: Without IV contrast, images [...] MD Not Available 03-04-2024 Note ARRIVAL TIME 06 FO R PROCEDURE DATE 03/13 HOLD ELIQUIS ON 03/11 MEDICATIONS TO TAKE DAY OF SURGERY WITH SIP OF WATER AMIODARONE COREG PT AGREES TO GO TO [facility] FOR LABS ON 03/05 HOLD VITAMINS AND SUPPLEMENTS 5 DAYS PRIOR TO PROCEDURE HOLD ALL ANTI INFLAMMATORIES ETC:MOTRIN, ADVIL, ALEVE, FOR 5 DAYS PRIOR TO PROCEDURE IF YOU ARE GOING HOME AFTER YOUR SURGERY OR PROCEDURE, FOR YOUR SAFETY, YOUR SURGERY WILL BE CANCELLED IF BOTH OF THE FOLLOWING ARE NOT AVAILABLE: 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 Do not wear perfume, make-up, nail citizen of [place], or lotions on the day of your [...] need to make any changes, please call [phone]. Notify your surgeon if you develop any illness such as a cold, cough, fever, sore throat or vomiting between now and your surgery. Thank you for entrusting us with your care. [facility] Surgical Services Team [facility] 02-05-2024 Note Procedure: Multidetector CT Pulmonary Angiogram [...] reasonably achievable. Electronically signed: Michael Velez. Jhonny Bruno [facility] Comment on above: Order Comment: Ck wolf schedule prior to February 13 01-29-2024 Note [place] Electrophysiology Consult Note Reason for visit: Afib 01/29/24 Patient here for H&P and to obtain consent for upcoming atrial fibrillation ablation procedure scheduled for 02/14/[address] Tomlin at [facility]. Denies chest pain, SOB, palpitations, lightheadedness/syncope, and [...] on file Intimate Partner Violence: Unknown (12/27/2023) [place] Safety & Environment Fear of Current or [...] results found f (more content not included)... [facility] 12-11-2023 Note [place] Electrophysiology Consult Note Reason [...] Value Ventricular Rate 81 Atrial Rate 81 [place] Interval 202 QRS DURATION 114 QT Interval 436 QTC CALCULATION(BAZETT) 506 P [place] 51 R-[place] 0 T Wave [place] 38 Impression Sinus rhythm with occasional Premature ventricular (more content not included)... [facility] 10-15-2023 Note EKG completed and pt in NSR. Dr. Tomlin cancelled procedure. [facility] 09-11-2023 Note [place] Electrophysiology Consult Note Reason for visit: Afib Date of Telehealth Visit: 09/11/2023 The patient was notified that using 3rd constitution party telecommunication application (e.g., [employer]) is not HIPPA compliant and may carry some privacy risks. Yes The visit was conducted [id number] with the use of audio and video [...] Amio and then (more content not included)... [facility] 05-22-2023 Note [place] Cardiology - [facility] Subjective Vinayak Madrigal is a [...] dilation of c (more content not included)... [facility] Summary Purpose Family History No [...] DATE CREATED AUTHOR 07/30/2018 [facility] DATE CREATED AUTHOR AUTHOR'S ORGANIZ ATION 05/31/2019 Antonio Mai [facility] DATE CREATED AUTHOR AUTHOR'S ORGANIZ ATION 01/10/2023 Esp[facility] DATE CREATED AUTHOR AUTHOR'S ORGANIZ ATION 04/09/2024 [facility] DATE CREATED AUTHOR AUTHOR'S ORGANIZ ATION 05/20/2024 [facility] EPIC FOR RECORDS PERTAINING TO PATIENTS WHO ARE [...] BE BASED ON THE PRIMARY CLINICAL RECORDS. [facility] [email or web address] provides no warranty or guarantee of the accuracy or completeness of information in this document.
[2024-05-27] MEDS: ALBUTEROL SULFATE 2.5 MG/3 ML VIAL NEB IH (10:02)
== END 2024-05-27 09:02 | disposition home or self-care (01) ==
LOC: CARD 09:01
PROVIDERS: PCP Internal Medicine; Visit Provider Internal Medicine
DX: J43.2 Centrilobular emphysema (principal)
CPT/HCPCS: 36415; 85018; 94060; 94726; 94729

== ENCOUNTER 2024-07-02 10:03 | Outpatient (OUT) | payer MEDICARE, OTHER, SELFPAY ==
--- OUTSIDE RECORDS SUMMARY | 2024-07-02 10:26 | XMS_ITS | CCD ---
Author Organization [facility] CliniSynj Care Team Providers Care Teletype Adjuster Name Role Phone PHYSICIAN, DEFAULT Unavailable Unavailable PHYSICIAN, DEFAULT Unavailable Unavailable PHYSICIAN, DEFAULT Unavailable Unavailable PHYSICIAN, DEFAULT Unavailable Unavailable BELÉN CORRALES Admitting Unavailable SAVANNA, BELÉN Attending Unavailable VICK, DR FELICIANO Primary Care Unavailable TREYEBCHIQUITA, DR MODE Souza Consulting Unavailable SAVANNA, BELÉN Consulting Unavailable SUZANNA, RAMON Admitting Unavailable SUZANNA, RAMON Attending Unavailable VICK, DR FELICIANO Primary Care Unavailable YUMA, DR LUIS MANUEL Urbina Consulting Unavailable SUZANNA, RAMON Consulting Unavailable BENEDICT, DARREN Brito Attending Unavailable HICKMAN, BRADEN Martin Attending Unavailable HEMMERWILLY Attending Unavailable LEANNE, BENNIE Attending Unavailable LEANNE, BENNIE Referring Unavailable LEANNE, BENNIE Referring Unavailable LEANNE, BENNIE Attending Unavailable LEANNE, BENNIE Attending Unavailable SAMSA, JUANI David Referring Unavailable MEHUL, PANTERA Admitting Unavailable MEHUL, PANTERA Attending Unavailable SAVANNA, BELÉN Attending Unavailable SAVANNA, BELÉN Attending Unavailable MEHUL, PANTERA Attending Unavailable MEHUL, PANTERA Referring Unavailable MEHUL, PANTERA Referring Unavailable MEHUL, PANTERA Referring Unavailable MEHUL, PANTERA Referring Unavailable MEHUL, PANTERA Referring Unavailable MEHUL, PANTERA Attending Unavailable MEHUL, PANTERA Attending Unavailable MEHUL, PANTERA Admitting Unavailable MEHUL, PANTERA Attending Unavailable Allergies Allergy Classification Reported Allergen(s) Allergy Type Date of Onset Reaction(s) Facility (2 sources) Penicillins; Translations: [PENICILLINS] Drug allergy (disorder) 12-27-2020 [facility] Repository Problems Active Problems Problem Classification Problem Date Documented Date Episodic/Chronic Aortic; peripheral; and visceral artery aneurysms (4 sources) Abdominal aortic aneurysm, without rupture; Translations: [ABDOMINAL AORTIC ANEUR W/O RUPTURED] Onset: 01-14-2022 Chronic Cardiac dysrhythmias (4 sources) Paroxysmal atrial fibrillation; Translations: [Unspecified atrial flutter] Onset: 12-12-2023 Chronic Essential hypertension (2 sources) Essential (primary) hypertension; Translations: [Essential (primary) hypertension] Onset: 06-18-2024 Chronic Hypertension with complications and secondary hypertension (2 sources) Hypertensive chronic kidney disease with stage 5 chronic kidney disease or end stage renal disease; Translations: [Hypertensive chronic kidney disease with stage 5 chronic kidney disease or end stage renal disease] Onset: 06-18-2024 Chronic Other circulatory disease (2 sources) Personal history of other diseases of the circulatory system; Translations: [Personal history of other diseases of the circulatory system] Onset: 06-18-2024 Episodic Residual codes; unclassified (2 sources) Other specified postprocedural states; Translations: [Other specified postprocedural states] Onset: 06-18-2024 Episodic Unclassified (3 sources) ABDOMINAL AA W/O RUPTURE UNSPCIFIED; Translations: [ABDOMINAL AA W/O RUPTURE UNSPCIFIED] Onset: 01-08-2023 Unclassified (1 source) Abdominal aortic aneurysm, without rupture, unspecified; Translations: [Abdominal aortic aneurysm, without rupture, unspecified] Onset: 12-11-2023 Unclassified (1 source) Supraventricular tachycardia, unspecified; Translations: [Supraventricular tachycardia, unspecified] Onset: 12-12-2023 Unclassified (2 sources) Longstanding persistent atrial fibrillation; Translations: [Longstanding persistent atrial fibrillation] Onset: 09-17-2023 Past or Other Problems Problem Classification Problem Date Documented Date Episodic/Chronic Unclassified (1 source) ABDOMINAL AA W/O RUPTURE UNSPCIFIED; Translations: [ABDOMINAL AA W/O RUPTURE UNSPCIFIED] Onset: 12-27-2022 Unclassified (1 source) Abdominal aortic aneurysm, without rupture, unspecified; Translations: [Abdominal aortic aneurysm, without rupture, unspecified] Onset: 06-18-2024 Unclassified (1 source) Supraventricular tachycardia, unspecified; Translations: [Supraventricular tachycardia, unspecified] Onset: 03-13-2024 Results Test Name Value Interpretation Reference Range Facility Documentationon 06-19-2024 Documentation [id number] Vinayak Madrigal 1950 M Date Provider Department Center 06/19/2024 BELÉN ARRIAZA LUZ MARIA Velazquez Family History Problem Relation Age of Onset Heart attack Father Coronary artery disease Father Coronary artery disease Brother Stroke Brother Family Status - Relation Status Age at Father Brother Normal [facility] 37on 06-18-2024 37 *Stop amiodarone. Monitor for signs of a.fib such as palpitations, elevated heart rate, increased shortness of breath. -Will see if this helps with your tremors. *Will increase his blood pressure medication: amlodipine/benazepril to 10/40mg daily. *Have lab work done in 2 weeks to follow-up on his kidney function. *Follow-up in 6-8 weeks Normal [facility] Office Visiton 06-18-2024 Follow-up visit [id number] Vinayak Madrigal 1950 M Date Provider Department Center 06/18/2024 BELÉN ARRIAZA Skye Velazquez Family History Problem Relation Age of Onset Heart attack Father Coronary artery disease Father Coronary artery disease Brother Stroke Brother Family Status - Relation Status Age at Father Brother Level of Service:54032 [place] OFFICE/OUTPATIENT ESTABLISHED MOD [facility] 30 MIN Reason for Visit and Comments: Atrial Fibrillation [80] Normal [facility] CT CHEST WO IV CONTRASTon CT CHEST [...] NODULES 3 MONTH F/U Follow-Upon 04-08-2024 Follow-Up [id number] Vinayak Madrigal 1950 M Date Provider Department Center 04/08/2024 Devin-BELÉN CORRALES LUZ MARIA Velazquez Family History Problem Relation Age of Onset Heart attack Father Coronary artery disease Father Coronary artery disease Brother Stroke Brother Family Status - Relation Status Age at Father Brother Level of Service:30305 [place] OFFICE/OUTPATIENT ESTABLISHED MOD MDM 30 MIN Reason for Visit and Comments: Atrial Fibrillation [80] Normal [facility] Telephoneon 03-20-2024 Telephone [id number] Vinayak Madrigal 1950 Provider Department Center 03/20/2024 Krishna-CLAIRE ARTEAGA [facility] VASC LAB DC HeartVAS Family History Problem Relation Age of Onset Heart attack Father Coronary artery disease Father Coronary artery disease Brother Stroke Brother Family Status - Relation Status Age at Father Brother Reason for Visit and Comments: week f/u post ablation [Other] Normal [facility] HPon 03-13-2024 [facility] Electrophysiology Consult Note Reason for visit: Afib 01/29/24 Patient here for H&P and to obtain consent for upcoming atrial fibrillation ablation procedure scheduled for 02/14/[address] Tomlin at [facility]. Denies chest pain, SOB, palpitations, lightheadedness/syncop e, [...] on file Intimate Partner Violence: Unknown (12/27/2023) [place] Safety & Environment Fear of Current or [...] 110 QT Interval 448 QTC CALCULATION(BAZETT) 486 R-[place] -7 T Wave [place] 8 Impression Atrial fibrillation (more content not included)... Normal [facility] POCT GLUCOSE METER UNSOLICIT ED RESULTSon 03-13-2024 Glucose [Mass/Vol] 162 mg/dL High 70-105 [facility] Comment on above: Order Comment: Waive d Testing in the ED is performed under the ED CLIA certificate #[id number]. Result Comment: lenniecooper [email or web address] Performed By: #### L [id number] ####[facility] (BEAKER)[address] [place] [address] Glucose [Mass/Vol] 177 mg/dL High 70-105 [facility] Comment on above: Order Comment: Waive d Testing in the ED is performed under the ED CLIA certificate #[id number]. Result Comment: eryn padillar Performed By: #### L [id number] #### [facility] (Banno) [address] [place] [address] Glucose [Mass/Vol] 194 mg/dL High 70-105 [facility] Comment on above: Order Comment: Waive d Testing in the ED is performed under the ED CLIA certificate #[id number]. Result Comment: jenradha [email or web address] Performed By: #### L [id number] ####[facility] (BEAKER)[address] [place] [address] PROTIME-INRon 03-13-2024 INR IN PPP BY COAGULATION ASSAY 0.99 Normal 0.90-1.[address] [facility] Comment on above: Result Comment: ACCC [...] 1995;108:231S-246S. Performed By: #### L [id number] #### [facility] (BEAKER) [address] [place] [address] PROTHROMBIN TIME (PT) IN PPP BY COAGULATION ASSAY 13.1 Seconds Normal 12.3-14.[address] [facility] Comment on above: Performed By: #### L [id number] #### [facility] (BEAKER) [address] [place] [address] Prep for Procedureon 024 Prep for Procedure [id number] ,Nov1950 M Date Provider Department Center 03/13/20241986CLAIRE ARTEAGA C VASC LAB DC HeartVAS Family History Problem Relation Age of Onset Heart attack Father Coronary artery disease Father Coronary artery disease Brother Stroke Brother Family Status - Relation Status Age at Father Brother Normal [facility] Orders Onlyon 02-22-2024 Orders Only [id number] ,Nov1950 M Date Provider Department Center 02/22/20241986-CLAIRE ARTEAGA [facility] VASC LAB DC HeartVAS Family History Problem Relation Age of Onset Heart attack Father Coronary artery disease Father Coronary artery disease Brother Stroke Brother Family Status - Relation Status Age at Father Brother Normal 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 Do not wear perfume, make-up, nail icelandic, or lotions on the day of your [...] need to make any changes, please call [phone]. Notify your surgeon if you develop any illness such as a cold, cough, fever, sore throat or vomiting between now and your surgery. Thank you for entrusting us with your care. [facility] Surgical Services Team Normal [facility] Orders Onlyon 02-06-2024 Orders Only [id number] Vinayak Madrigal 1950 M Date Provider Department Center 02/06/2024 SHARON BLACKMON [facility] Radha Family History Problem Relation Age of Onset Heart attack Father Coronary artery disease Father Coronary artery disease Brother Stroke Brother Family Status - Relation Status Age at Father Brother Normal [facility] Office Visiton 01-29-2024 Follow-up visit [id number] Vinayak Madrigal 1950 M Date Provider Department Center 01/29/2024 PANTERA ORTEGA [facility] Family History Problem Relation Age of Onset Heart attack Father Coronary artery disease Father Coronary artery disease Brother Stroke Brother Family Status - Relation Status Age at Father Brother Level of Service:12568 [place] OFFICE/OUTPATIENT ESTABLISHED HIGH MDM 40 MIN Normal [facility] Prep for Procedureon 024 Prep for Procedure [id number] ,Nov1950 Date Provider Department Center 12/12/2023 Krishna-CLAIRE ARTEAGA [facility] VASC LAB DC HeartVAS Family History Problem Relation Age of Onset Heart attack Father Coronary artery disease Father Coronary artery disease Brother Stroke Brother Family Status - Relation Status Age at Father Brother Normal [facility] Office Visiton 12-11-2023 Follow-up visit [id number] ,Nov1950 M Date Provider Department Center 12/11/2023 PANTERA ORTEGA LUZ MARIA [facility] Family History Problem Relation Age of Onset Heart attack Father Coronary artery disease Father Coronary artery disease Brother Stroke Brother Family Status - Relation Status Age at Father Brother Level of Service:83618 [place] OFFICE/OUTPATIENT ESTABLISHED HIGH MDM 40 MIN Normal [facility] Orders Onlyon 12-11-2023 Orders Only [id number] ,Nov1950 M Date Provider Department Center 12/11/2023 ISMAEL BOLES LUZ MARIA [facility] Family History Problem Relation Age of Onset Heart attack Father Coronary artery disease Father Coronary artery disease Brother Stroke Brother Family Status - Relation Status Age at Father Brother Normal [facility] Orders Onlyon 10-08-2023 Orders Only [id number] ,Nov1950 M Date Provider Department Center 10/08/2023 SHEILA EDEN [facility] VASC LAB DC Heart[facility] Family History Problem Relation Age of Onset Heart attack Father Coronary artery disease Father Coronary artery disease Brother Stroke Brother Family Status - Relation Status Age at Father Brother Normal [facility] Telemedicineon 09-11-2023 Telemedicine [id number] 1950 Date Provider Department Center 09/11/2023 PANTERA ORTEGA [facility] CARD [facility] Family History Problem Relation Age of Onset Heart attack Father Coronary artery disease Father Coronary artery disease Brother Stroke Brother Family Status - Relation Status Age at Father Brother Level of Service:41442 [place] PHYS/QHP TELEPHONE EVALUATION 11-20 MIN Normal [facility] US ABD AORTA DIAGNOSTICon US ABD [...] by: MODE GARAY Date: 2022-12-27 15:45 Normal [facility] US ABD AORTA DIAGNOSTICon US ABD [...] LUIS MANUEL MCCORMICK Date: 2022-01-16 07:21 Normal [facility] Coding Summary.on 02-12-2019 Coding Summary. 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 However, the narrative phrase printed from the coding software may appear abbreviated, or result in slightly different terminology. Coded By: Analia Le Date Saved: 02/12/2019 12:49 pm [facility] Main OR Intraoperative Recor romaine 02-06-2019 Main OR Intraoperative Record IntraOp Document Type FTURO Summary Primary Physician: Eric Elizabeth Jr., MD Finalized Date/Time: 02/06/19 14:00:49 Pt. Name: VINAYAK MADRIGALO.B./Sex: 1950 Male Med Rec #: [id number] Physician: Eric Elizabeth Jr., MD Financial #: [id number] Pt. Type: O Room/Bed: / Admit/Disch: 02/06/19 12:31:57 - Institution: Case Times FTURO Entry 1 Patient Times In Room 02/06/19 13:43:00 Out Room 02/06/19 14:02:00 Procedure Times Start 02/06/19 13:47:00 Stop 02/06/19 13:56:00 Anesthesia Times Last Modified By: Nathaly TEJADA, Jessica RUSSELL 02/06/19 14:00:08 Case Attendance FTURO Entry 1 Entry 2 Entry 3 Case Attendee Eric Elizabeth Jr., MD, RN, MELYOR, [place] ELECTRIC SYSTEM OPERATOR, Ping Lopez Role Performed Surgeon - Primary Tree And Shrub Worker - Primary Scrub - Primary Time In 02/06/19 13:43:00 02/06/19 13:43:00 02/06/19 13:43:00 Time Out 02/06/19 14:02:00 02/06/19 14:02:00 02/06/19 14:02:00 Procedure CYSTOSCOPY LOCAL CYSTOSCOPY LOCAL CYSTOSCOPY LOCAL REZUM(.) REZUM(.) REZUM(.) Comments Last Modified By: Nathaly TEJADA, CNOR, Nathaly TEJADA, CNOR, Nathaly TEJADA, CNOR, Jessica 02/06/19 Jessica 02/06/19 Jessica 02/06/19 [...] LUTS Outcomes Met? Yes Last Modified By: Nathaly TEJADA, MELYOR, Jessica 02/06/19 12:40:38 Post-Care Text: The patient is [...] Hoyt MD, Eric Nguyen, Verified (If Participants Nathaly TEJADA, CNOR, Applicable) Ana Lopez CST, Gwen E Time [...] DREW Andersen RN, Ruthann 02/06/19 14:00 Normal [facility] Main OR Preoperative Recordo n 02-06-2019 Main OR Preoperative Record Holding Area Document Type FTURO Summary Primary Physician: Eric Elizabeth Jr., MD Finalized Date/Time: 02/06/19 13:49:45 Pt. Name: VINAYAK MADRIGAL /Sex: 1950 Male Med Rec #: [id number] Physician: Eric Elizabeth Jr., MD Financial #: [id number] Pt. Type: O Room/Bed: / Admit/Disch: 02/06/19 [...] of Pain: No Comment: Skin Integrity Intact, [place], Warm, & Dry Vitals - EU Blood Pressure 124/74 Pulse 60 bpm Respirations 18 br/min SPO2 RN Reviewed Yes Last Modified By: DREW Andersen RN, Ruthann 02/06/19 13:49:43 Finalized By: Nathaly TEJADA, Jessica RUSSELL Document Signatures Signed By: Sharon Lawler LPN 02/06/19 12:50 DREW Andersen RN, Ruthann 02/06/19 13:49 Normal [facility] Operative Reporton 9 Operative Report [...] in satisfactory condition, Discharge instructions are provided. [facility] Comment on above: Result Comment: Elec tronically Signed By: Glenn Hoyt MD, Eric Kearney.br\Date and Time Signed: 02/06/19 13:57 EDT Encounters Encounter Date Encounter Type Care Provider Facility Start: 06-18-2024 End: 06-18-2024 ambulatory [facility] Start: 05-12-2024 End: 05-12-2024 ambulatory JUANI HOOKER Not Available Start: 05-06-2024 End: 05-06-2024 ambulatory BENNIE LEANNE Not Available Start: 05-05-2024 End: 05-05-2024 ambulatory BENNIE LEANNE Not Available Start: 04-28-2024 End: 04-28-2024 ambulatory BENNIE LEANNE Not Available Start: 04-08-2024 End: 04-08-2024 ambulatory [facility] Start: 03-13-2024 ambulatory [facility] Start: 03-13-2024 End: 03-13-2024 ambulatory [facility] Start: 03-12-2024 End: 03-12-2024 ambulatory BENNIE LEANNE Not Available Start: 03-10-2024 End: 03-10-2024 ambulatory BENNIE LEANNE Not Available Start: 02-05-2024 End: 02-05-2024 ambulatory [facility] Start: 01-29-2024 End: 01-29-2024 ambulatory [facility] Start: 01-07-2024 End: 01-07-2024 ambulatory WILLY MILLS Not Available Start: 12-11-2023 End: 12-11-2023 ambulatory [facility] Start: 11-20-2023 End: 11-20-2023 ambulatory DARREN MCMULLEN Not Available Start: 10-15-2023 End: 10-15-2023 ambulatory [facility] Start: 09-20-2023 End: 09-20-2023 ambulatory BRADEN HICKMAN Not Available Start: 09-11-2023 End: 09-11-2023 ambulatory PANTERA [facility] Start: 12-27-2022 End: 12-28-2022 ambulatory BELÉN CORRALES Facility:[facility] Start: 01-14-2022 End: 01-15-2022 ambulatory RAMON BRISENO Facility:[facility] Start: 07-15-2018 End: 07-16-2018 Patient encounter DEFAULT PHYSICIAN Facility:[facility] Start: 06-11-2018 End: 06-12-2018 Patient encounter DEFAULT PHYSICIAN Facility:[facility] Payers Date Payer Category Payer [employer] and others) [id number] 1959 Medicare [id number] 1950 Unknown [id number] 1950 Unknown [id number] 1950 Unknown [id number] 1950 Unknown [id number] 1950 Unknown [id number] 1950 Unknown [id number] 1950 Unknown [id number] 1950 Unknown [id number] [id number] 1950 Unknown [id number] 1950 Unknown [id number] 1950 Unknown [id number] Unknown Clinical Notes 09-11-2023 to 06-19-2024 Note Date & Type Note Facility 06-19-2024 Note Error [facility] 06-18-2024 Note Cardiovascular Medic [facility] SUBJECTIVE Chief Complaint Patient presents with Atrial Fibrillation Vinayak Madrigal is a 73 y.o. male here for follow-up after his recent ablation. HPI PMHx: essential hypertension, paroxysmal atrial fib s/p PVI ablation and CTI aflutter ablation 03/13/24, JESS with BiPAP, diabetes type 2 He has been feeling well overall. He has occasional dizziness if he stands too quickly or stands from kneeling. BP at home averaging 140s/80s. Denies CP, dyspnea, orthopnea, PND, LE edema, palpitations, syncope, bleeding issues. He does c/o worsened tremor for the past 8 months or so. He is seeing a neurologist who is proposing changing his carvedilol to propranolol. Of note, he did start amiodarone back in September,. 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) Obesity (BMI 30-39.9) Uncontrolled type 2 diabetes mellitus with hyperglycemia (CMS/HCC) SVT (supraventricular tachycardia) (CMS/HCC) Short-term memory loss Tremor of both hands JESS (obstructive sleep apnea) Jbmuy-[id number] deficiency (CMS/HCC) Hypersomnia due to medical condition Hypersomnolence Hypertension Past Medical History: Diagnosis Date Aneurysm (CMS/HCC) Atrial fibrillation (CMS/HCC) Diabetes mellitus (CMS/HCC) Hyperlipidemia Hypertension Obesity BMI 33.23 Family History Problem Relation Name Age of Onset Heart attack Father Coronary artery disease Father Coronary artery disease Brother Stroke Brother Social History Tobacco Use Smoking status: Former Types: Cigarettes Smokeless tobacco: Never Substance Use Topics Alcohol use: Not Currently Drug use: Never Allergies Allergen Reactions Penicillins Rash and Unknown Review of Systems Constitutional: Negative for chills, decreased appetite, fever, malaise/fatigue and weight gain. Cardiovascular: Negative for chest pain, dyspnea on exertion, irregular heartbeat, leg swelling, near-syncope, orthopnea, palpitations, paroxysmal nocturnal dyspnea and syncope. Hematologic/Lymphatic: Negative for bleeding problem. Does not bruise/bleed easily. Neurological: Positive for tremors. OBJECTIVE Visit Vitals BP 148/90 Pulse 63 Ht 1.829 m (6') Wt 109 kg (241 lb) SpO2 95% BMI 32.69 kg/m??? Smoking Status Former BSA 2.35 m??? Medications: Current Outpatient Medications: amiodarone (Pacerone) 200 mg tablet, Take 1 tablet (200 mg) by mouth once daily as directed., Disp: 90 tablet, Rfl: 3 apixaban (Eliquis) 5 mg tablet, Take 5 mg by mouth in the morning and at bedtime., Disp: , Rfl: atorvastatin (Lipitor) 40 mg tablet, TAKE 1 TABLET IN THE MORNING, Disp: 90 tablet, Rfl: 3 celecoxib (CeleBREX) 200 mg capsule, Take 200 mg by mouth in the morning. As needed, Disp: , Rfl: glimepiride (Amaryl) 2 mg tablet, Take 2 mg by mouth 2 times daily., Disp: , Rfl: SITagliptin phosphate (Januvia) 50 mg tablet, Take 50 mg by mouth in the morning., Disp: , Rfl: amLODIPine-benazepriL (Lotrel) 10-40 mg capsule, Take 1 capsule by mouth in the morning., Disp: 30 capsule, Rfl: 11 amLODIPine-benazepriL (Lotrel) 10-40 mg capsule, Take 1 capsule by mouth in the morning for 10 days., Disp: 10 capsule, Rfl: 0 carvedilol (Coreg) 6.25 mg tablet, Take 1 tablet (6.25 mg) by mouth with breakfast and with evening meal., Disp: 60 tablet, Rfl: 0 Physical Exam Constitutional: Appearance: Normal appearance. HENT: [...] effort is normal. Breath sounds: Normal breath s (more content not included)... [facility] 06-18-2024 Note Pt is here for a two month follow up. Review of Systems Neurological: Positive for light-headedness. 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 [facility] 03-13-2024 Note Patient: Vinayak Madrigal Procedure Summary Date: 03/13/24 Room / Location: [facility] SALES SERVICE PROMOTER 1 EP / [facility] (Cath) Anesthesia Start: 817 Anesthesia Stop: 1119 Procedures: Ablation a-fib paroxysmal TK during EP [...] no known notable events for this encounter. [facility] 03-13-2024 Note Patient: Vinayak Madrigal Procedure Summary Date: 03/13/24 Room / Location: [facility] SALES SERVICE PROMOTER 1 EP / [facility] VASCULAR [facility] (Cath) Anesthesia Start: 817 Anesthesia Stop: 1119 Procedures: Ablation a-fib paroxysmal TK during EP [...] Line Transport: uneventful Patient condition is: stable [facility] 03-13-2024 Note ATRIAL FIBRILLATION ABLATION PROCEDURE [...] medial was 16 (more content not included)... [facility] 03-13-2024 Note Airway Date/Time: 03/13/2024 8:39 AM Urgency: elective Airway not difficult General Information and Staff Patient location during procedure: OR Anesthesiologist: Dana Huertas MD Resident/FIREPOT OPERATOR AND TENDER/CAA: Simeon Garcia DO Performed: resident/FIREPOT OPERATOR AND TENDER/CAA Indications and Patient Condition Indications for airway [...] to circulating RN in a denture container. [facility] 03-13-2024 Note Arterial Line: Date/Time: 03/13/2024 [...] mL - 03/13/2024 7:55:00 AM Staffing Performed: resident/FIREPOT OPERATOR AND TENDER/CAA Anesthesiologist: Dana Huertas MD Resident/FIREPOT OPERATOR AND TENDER: Simeon Garcia DO Performed by: Simeon Garcia DO Authorized by: Dana Huertas MD 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 Additional Equipment Requests 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 Do not wear perfume, make-up, nail icelandic, or lotions on the day of your [...] need to make any changes, please call [phone]. Notify your surgeon if you develop any illness such as a cold, cough, fever, sore throat or vomiting between now and your surgery. Thank you for entrusting us with your care. [facility] Surgical Services Team [facility] 02-05-2024 Note Procedure: Multidetector CT Pulmonary [...] achievable. Electronically signed: Michael Velez. Jhonny Bruno [facility] Comment on above: Order Comment: Ck wolf schedule prior to February 13 01-29-2024 Note [facility] Electrophysiology Consult Note Reason for visit: Afib 01/29/24 Patient here for H&P and to obtain consent for upcoming atrial fibrillation ablation procedure scheduled for 02/14/[address] Tomlin at [facility]. Denies chest pain, SOB, palpitations, lightheadedness/syncope, and [...] on file Intimate Partner Violence: Unknown (12/27/2023) DC Safety & Environment Fear of Current or [...] results found f (more content not included)... [facility] 12-11-2023 Note DC Electrophysiology Consult Note Reason for visit: Afib [...] Value Ventricular Rate 81 Atrial Rate 81 [place] Interval 202 QRS DURATION 114 QT Interval 436 QTC CALCULATION(BAZETT) 506 P [place] 51 R-[place] 0 T Wave [place] 38 Impression Sinus rhythm with occasional Premature ventricular (more content not included)... [facility] 10-15-2023 Note EKG completed and pt in NSR. Dr. Tomlin cancelled procedure. [facility] 09-11-2023 Note [facility] Electrophysiology Consult Note Reason for visit: Afib Date of Telehealth Visit: 09/11/2023 The patient was notified that using 3rd constitution party telecommunication application (e.g., [employer]) is not HIPPA compliant and may carry some privacy risks. Yes The visit was conducted [id number] with the use of audio and video technology between patient and provider for a virtual [...] or any previous visit (from the past 4463 hour(s)). Echo: Stress test: Coronary angiogram: @CATH@ Diagnostic Imaging: No images are attached to the encounter. Assessment and Plan: - Persistent AF: Given pt has not been offered DCCV, will try to load with Amio and then (more content not included)... [facility] Summary Purpose Family History No Family [...] and content) DATE CREATED AUTHOR 07/30/2018 [facility] DATE CREATED AUTHOR AUTHOR'S ORGANIZ ATION 05/31/2019 [facility] DATE CREATED AUTHOR AUTHOR'S ORGANIZ ATION 01/10/2023 [facility] DATE CREATED AUTHOR AUTHOR'S ORGANIZ ATION 05/20/2024 [facility] DATE CREATED AUTHOR AUTHOR'S ORGANIZ ATION 06/20/2024 [facility] FOR RECORDS PERTAINING TO PATIENTS WHO ARE [...] BE BASED ON THE PRIMARY CLINICAL RECORDS. [employer] provides no warranty or guarantee of the accuracy or completeness of information in this document.
[2024-07-02 11:19] LABS: BUN Creatinine Ratio 16.2; Calcium 9.3 mg/dL (8.5-10.1); Carbon Dioxide 23.5 mmol/L (21.0-32.0); Chloride 102 mmol/L (98-107); Estimated GFR (African America 54 (>=60); Estimated GFR (Non-African Ame 45 (>=60); Glucose 337 mg/dL (74-106); Potassium 4.5 mmol/L (3.5-5.1); Sodium 138 mmol/L (136-145)
== END 2024-07-02 10:04 | disposition home or self-care (01) ==
LOC: LAB 10:05
PROVIDERS: PCP Internal Medicine; Visit Provider Nurse Practitioner Family
DX: I10 Essential (primary) hypertension (principal)
CPT/HCPCS: 36415; 80048

== ENCOUNTER 2024-07-31 10:53 | Outpatient (OUT) | payer MEDICARE, OTHER, SELFPAY ==
--- OUTSIDE RECORDS SUMMARY | 2024-07-31 11:11 | XMS_ITS | CCD ---
Author Organization [facility] CliniSyri Care Team Providers Care School Secretary Name Role Phone PHYSICIAN, DEFAULT Unavailable Unavailable PHYSICIAN, DEFAULT Unavailable Unavailable PHYSICIAN, DEFAULT Unavailable Unavailable PHYSICIAN, DEFAULT Unavailable Unavailable BELÉN GOVEA Admitting Unavailable SAVANNA, BELÉN Attending Unavailable VICK, DR FELICIANO Primary Care Unavailable JARROD, DR MODE Souza Consulting Unavailable SAVANNA, BELÉN Consulting Unavailable SUZANNA, RAMON Admitting Unavailable SUZANNA, RAMON Attending Unavailable HICKMAN, DR FELICIANO Primary Care Unavailable JACE, DR LUIS MANUEL Urbina Consulting Unavailable SUZANNA, RAMON Consulting Unavailable MEHUL, PANTERA Admitting Unavailable MEHUL, PANTERA Attending Unavailable SAVANNA, BELÉN Attending Unavailable SAVANNA, BELÉN Attending Unavailable MEHUL, PANTERA Attending Unavailable MEHUL, PANTERA Referring Unavailable MEHUL, PANTERA Referring Unavailable MEHUL, PANTERA Referring Unavailable MEHUL, PANTERA Referring Unavailable MEHUL, PANTERA Referring Unavailable MEHUL, PANTERA Attending Unavailable MEHUL, PANTERA Attending Unavailable MEHUL, PANTERA Admitting Unavailable MEHUL, PANTERA Attending Unavailable BENEDICT, DARREN Brito Attending Unavailable HICKMAN, BRADEN Martin Attending Unavailable HEMMERWILLY Attending Unavailable LEANNE, BENNIE Attending Unavailable LEANNE, BENNIE Referring Unavailable LEANNE, BENNIE Referring Unavailable LEANNE, BENNIE Attending Unavailable LEANNE, BENNIE Attending Unavailable SAMSA, JUANI David Referring Unavailable LEANNE, BENNIE Attending Unavailable Allergies Allergy Classification Reported Allergen(s) Allergy Type Date of Onset Reaction(s) Facility (2 sources) Penicillins; Translations: [PENICILLINS] Drug allergy (disorder) 12-27-2020 [facility] Repository Problems Active Problems Problem [...] Test Name Value Interpretation Reference Range Facility 36on 07-11-2024 36 Reguarding kidney function From: Belén Govea NP Sent: 07/10/2024 5:38 PM EDT To: Christina Martin MA Subject: RE: Scan Kidney function appears to be stable. Continue increased dose of amlodipine/benazepril. Thanks Patient was informed about this message [facility] Documentationon 06-19-2024 Documentation [id number] Vinayak Madrigal W 1950 M Date Provider Department Center 06/19/2024 BELÉN ARRIAZA Family History Problem Relation Age of Onset Heart attack Father Coronary artery disease Father Coronary artery disease Brother Stroke Brother Family Status - Relation Status Age at Father Brother [facility] 37on 06-18-2024 37 *Stop amiodarone. Monitor for signs of a.fib such as palpitations, elevated heart rate, increased shortness of breath. -Will see if this helps with your tremors. *Will increase his blood pressure medication: amlodipine/benazepril to 10/40mg daily. *Have lab work done in 2 weeks to follow-up on his kidney function. *Follow-up in 6-8 weeks [facility] Office Visiton 06-18-2024 Follow-up visit [id number] Vinayak Madrigal W 1950 Date Provider Department Center 06/18/2024 BELÉN ARRIAZA Family History Problem Relation Age of Onset Heart attack Father Coronary artery disease Father Coronary artery disease Brother Stroke Brother Family Status - Relation Status Age at Father Brother Level of Service:55001 CT OFFICE/OUTPATIENT ESTABLISHED MOD MDM 30 MIN Reason for Visit and Comments: Atrial Fibrillation [80] [facility] CT CHEST WO IV CONTRASTon CT CHEST [...] NODULES 3 MONTH F/U Follow-Upon 04-08-2024 Follow-Up [id number] Vinayak Madrigal 1950 M Date Provider Department Center 04/08/2024 166-BELÉN GOVEA CARD [facility] Family History Problem Relation Age of Onset Heart attack Father Coronary artery disease Father Coronary artery disease Brother Stroke Brother Family Status - Relation Status Age at Father Brother Level of Service:04394 CT OFFICE/OUTPATIENT ESTABLISHED MOD MDM 30 MIN Reason for Visit and Comments: Atrial Fibrillation [80] Normal [facility] Telephoneon 03-20-2024 Telephone [id number] Vinayak Madrigal 1950 Provider Department Center 03/20/2024 Krishna-CLAIRE ARTEAGA [facility] HeartVAS Family History Problem Relation Age of Onset Heart attack Father Coronary artery disease Father Coronary artery disease Brother Stroke Brother Family Status - Relation Status Age at Father Brother Reason for Visit and Comments: week f/u post ablation [Other] Normal [facility] HPon 03-13-2024 [facility] Electrophysiology Consult Note Reason for visit: Afib 01/29/24 Patient here for H&P and to obtain consent for upcoming atrial fibrillation ablation procedure scheduled for 02/14/[address] Tomlin at [facility]. Denies chest pain, SOB, palpitations, lightheadedness/syncop [...] on file Intimate Partner Violence: Unknown (12/27/2023) [place] Safety & Environment Fear of Current or [...] 110 QT Interval 448 QTC CALCULATION(BAZETT) 486 R-[place] -7 T Wave [place] 8 Impression Atrial fibrillation (more content not included)... Normal [facility] POCT GLUCOSE METER UNSOLICIT ED RESULTSon 03-13-2024 Glucose [Mass/Vol] 162 mg/dL High 70-105 [facility] Comment on above: Order Comment: Waive d Testing in the ED is performed under the ED CLIA certificate #[id number]. Result Comment: lowell [email or web address] Performed By: #### L [id number] ####[facility] ([facility])[address] [place] [address] Glucose [Mass/Vol] 177 mg/dL High 70-105 [facility] Comment on above: Order Comment: Waive d Testing in the ED is performed under the ED CLIA certificate #[id number]. Result Comment: eryn meek Performed By: #### L [id number] #### [facility] ([place] [facility]) [address] [place] [address] Glucose [Mass/Vol] 194 mg/dL High 70-105 [facility] Comment on above: Order Comment: Waive d Testing in the ED is performed under the ED CLIA certificate #[id number]. Result Comment: cedric [email or web address] Performed By: #### L [id number] ####[facility] ([facility])[address] [place] [address] PROTIME-INRon 03-13-2024 INR IN PPP BY COAGULATION ASSAY 0.99 Normal 0.90-1.10 [facility] Comment on above: Result Comment: ACCC P [...] 1995;108:231S-246S. Performed By: #### L [id number] #### [facility] ([facility]) [address] [place] [address] PROTHROMBIN TIME (PT) IN PPP BY COAGULATION ASSAY 13.1 Seconds Normal 12.3-14.8 [facility] Comment on above: Performed By: #### L [id number] #### [facility] ([facility] [address] [place] [address] Prep for Procedureon 024 Prep for Procedure [id number] Vinayak Madrigal 1950 M Date Provider Department Center 03/13/20241986-CLAIRE ARTEAGA [facility] HeartVAS Family History Problem Relation Age of Onset Heart attack Father Coronary artery disease Father Coronary artery disease Brother Stroke Brother Family Status - Relation Status Age at Father Brother Normal [facility] Orders Onlyon 02-22-2024 Orders Only [id number] Vinayak Madrigal 1950 M Date Provider Department Center 02/22/20241986-CLAIRE ARTEAGA [facility] HeartVAS Family History Problem Relation Age of Onset Heart attack Father Coronary artery disease Father Coronary artery disease Brother Stroke Brother Family Status - Relation Status Age at Father Brother Normal [facility] [id number] 02-06-2024 [id number] ARRIVAL TIME GIVEN 0630 HOLD ELIQLUIS 02/11 [...] THE FOLLOWING ARE NOT AVAILABLE: 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 Do not wear perfume, make-up, nail ivorian, or lotions on the day of your [...] need to make any changes, please call [phone]. Notify your surgeon if you develop any illness such as a cold, cough, fever, sore throat or vomiting between now and your surgery. Thank you for entrusting us with your care. [facility] Surgical Services Team Normal [facility] Orders Onlyon 02-06-2024 Orders Only [id number] Vinayak Madrigal 1950 M Date Provider Department Center 02/06/2024 1724-SHARON CASE [facility] Family History Problem Relation Age of Onset Heart attack Father Coronary artery disease Father Coronary artery disease Brother Stroke Brother Family Status - Relation Status Age at Father Brother Normal [facility] Office Visiton 01-29-2024 Follow-up visit [id number] ,Nov1950 M Provider Department Center 01/29/2024 241-PANTERA TOMLIN LUZ [facility] Family History Problem Relation Age of Onset Heart attack Father Coronary artery disease Father Coronary artery disease Brother Stroke Brother Family Status - Relation Status Age at Father Brother Level of Service:29312 CT OFFICE/OUTPATIENT ESTABLISHED HIGH MDM 40 MIN Normal [facility] Prep for Procedureon 024 Prep for Procedure [id number] ,Nov1950 Provider Department Center 12/12/2023 1987-CLAIRE ARTEAGA [facility] Heart[facility]AS Family History Problem Relation Age of Onset Heart attack Father Coronary artery disease Father Coronary artery disease Brother Stroke Brother Family Status - Relation Status Age at Father Brother Normal [facility] Office Visiton 12-11-2023 Follow-up visit [id number] ,Nov1950 Provider Department Center 12/11/2023 Rosibel-PANTERA TOMLIN LUZ MAR[facility] Family History Problem Relation Age of Onset Heart attack Father Coronary artery disease Father Coronary artery disease Brother Stroke Brother Family Status - Relation Status Age at Father Brother Level of Service:16818 CT OFFICE/OUTPATIENT ESTABLISHED HIGH MDM 40 MIN Normal [facility] Orders Onlyon 12-11-2023 Orders Only [id number] ,Nov1950 M Date Provider Department Center 12/11/2023 Naren[address]-ISMAEL L[address] LUZ MARIA [facility] Family History Problem Relation Age of Onset Heart attack Father Coronary artery disease Father Coronary artery disease Brother Stroke Brother Family Status - Relation Status Age at Father Brother Normal [facility] Orders Onlyon 10-08-2023 Orders Only [id number] 1950 M Date Provider Department Center 10/08/2023 Ida-SHEILA ABREU [facility] Family History Problem Relation Age of Onset Heart attack Father Coronary artery disease Father Coronary artery disease Brother Stroke Brother Family Status - Relation Status Age at Father Brother Normal [facility] Telemedicineon 09-11-2023 Telemedicine [id number] Vinayak Madrigal 1950 M Date Provider Department Center 09/11/2023 PANTERA ORTEGA [facility] Family History Problem Relation Age of Onset Heart attack Father Coronary artery disease Father Coronary artery disease Brother Stroke Brother Family Status - Relation Status Age at Father Brother Level of Service:04102 CT PHYS/QHP TELEPHONE EVALUATION 11-20 MIN Normal [facility] US ABD AORTA DIAGNOSTICon US ABD AORTA [...] by: MODE GARAY Date: 2022-12-27 15:45 Normal [facility] US ABD AORTA DIAGNOSTICon US ABD [...] LUIS MANUEL MCCORMICK Date: 2022-01-16 07:21 Normal [facility] Coding Summary.on 02-12-2019 Coding Summary. 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 However, the narrative phrase printed from the coding software may appear abbreviated, or result in slightly different terminology. Coded By: Analia Le Date Saved: 02/12/2019 12:49 pm Normal [facility] Main OR Intraoperative Recor don 02-06-2019 Main OR Intraoperative Record IntraOp Document Type FTURO Summary Primary Physician: Eric Elizabeth Jr., MD Finalized Date/Time: 02/06/19 14:00:49 Pt. Name: VINAYAK MADRIGAL [place]/Sex: 1950 Male Med Rec #: [id number] Physician: Eric Elizabeth Jr., MD Financial #: [id number] Pt. Type: O Room/Bed: / Admit/Disch: 02/06/19 12:31:57 - Institution: Case Times FTURO Entry 1 Patient Times In Room 02/06/19 13:43:00 Out Room 02/06/19 14:02:00 Procedure Times Start 02/06/19 13:47:00 Stop 02/06/19 13:56:00 Anesthesia Times Last Modified By: Nathaly TEJADA, Jessica RUSSELL 02/06/19 14:00:08 Case Attendance FTURO Entry 1 Entry 2 Entry 3 Case Attendee Glenn Hoyt MD, Eric Andersen RN, MELYOR, [facility], Ping Lopez Role Performed Surgeon - Primary Grinder Set Up Operator Universal - Primary Scrub - Primary Time In 02/06/19 13:43:00 02/06/19 13:43:00 02/06/19 13:43:00 Time Out 02/06/19 14:02:00 02/06/19 14:02:00 02/06/19 14:02:00 Procedure CYSTOSCOPY LOCAL CYSTOSCOPY LOCAL CYSTOSCOPY LOCAL REZUM(.) REZUM(.) REZUM(.) Comments Last Modified By: Nathaly TEJADA, CNOR, Nathaly TEJADA, MELYOR, Nathaly RN, CNOR, Jessica 02/06/19 Jessica 02/06/19 [...] Jr., MD, Verified (If Participants Nathaly TEJADA, MELYOR, Applicable) Ana Lopez CST, Ping Sandra Time Out Complete 02/06/19 13:46:00 Allergies Reviewed? [...] 14:00 DREW Andersen RN, Ruthann 02/06/19 14:00 [facility] Main OR Preoperative Recordo n 02-06-2019 Main OR Preoperative Record Holding Area Document Type FTURO Summary Primary Physician: Eric Elizabeth Jr., MD Finalized Date/Time: 02/06/19 13:49:45 Pt. Name: VINAYAK MADRIGALO.B./Sex: 1950 Male Med Rec #: [id number] Physician: Eric Elizabeth Jr., MD Financial #: [id number] Pt. Type: O Room/Bed: / Admit/Disch: 02/06/19 [...] of Pain: No Comment: Skin Integrity Intact, [place], Warm, & Dry Vitals - EU Blood Pressure 124/74 Pulse 60 bpm Respirations 18 br/min SPO2 RN Reviewed Yes Last Modified By: DREW Andersen RN, Ruthann 02/06/19 13:49:43 Finalized By: DREW Andersen RN, Ruthann Document Signatures Signed By: Sharon Lawler LPN 02/06/19 12:50 DREW Andersen RN, Ruthann 02/06/19 13:49 Normal [facility] Operative Reporton 9 Operative Report Patient: VINAYAK [...] in satisfactory condition, Discharge instructions are provided. [facility] Comment on above: Result Comment: Elec tronically Signed By: Glenn Hoyt MD, Eric Kearney.br\Date and Time Signed: 02/06/19 13:57 EDT Encounters Encounter Date Encounter Type Care Provider Facility Start: 07-28-2024 End: 07-28-2024 ambulatory BENNIE LEANNE Not Available Start: 06-18-2024 End: 06-18-2024 ambulatory [facility] Start: 05-12-2024 End: 05-12-2024 ambulatory JUANI HOOKER Not Available Start: 05-06-2024 End: 05-06-2024 ambulatory BENNIE LEANNE Not Available Start: 05-05-2024 End: 05-05-2024 ambulatory BENNIE LEANNE Not Available Start: 04-28-2024 End: 04-28-2024 ambulatory BENNIE LEANNE Not Available Start: 04-08-2024 End: 04-08-2024 ambulatory [facility] Start: 03-13-2024 ambulatory [facility] Start: 03-13-2024 End: 03-13-2024 ambulatory [facility] Start: 03-12-2024 End: 03-12-2024 ambulatory BENNIE LEANNE Not Available Start: 03-10-2024 End: 03-10-2024 ambulatory BENNIE LEANNE Not Available Start: 02-05-2024 End: 02-05-2024 ambulatory [facility] Start: 01-29-2024 End: 01-29-2024 ambulatory [facility] Start: 01-07-2024 End: 01-07-2024 ambulatory WILLY MILLS Not Available Start: 12-11-2023 End: 12-11-2023 ambulatory [facility] Start: 11-20-2023 End: 11-20-2023 ambulatory DARRENJOIE MCMULLEN Not Available Start: 10-15-2023 End: 10-15-2023 ambulatory [facility] Start: 09-20-2023 End: 09-20-2023 ambulatory BRADEN HICKMAN Not Available Start: 09-11-2023 End: 09-11-2023 ambulatory [facility] Start: 12-27-2022 End: 12-28-2022 ambulatory BELÉN HAWLEYCKER Facility:[facility] Start: 01-14-2022 End: 01-15-2022 ambulatory RAMON BRISENO Facility:[facility] Start: 07-15-2018 End: 07-16-2018 Patient encounter DEFAULT PHYSICIAN Facility:[facility] Start: 06-11-2018 End: 06-12-2018 Patient encounter DEFAULT PHYSICIAN Facility:[facility] Payers Date Payer Category Payer Department of [employer] ([employer] and others) [id number] 1959 Medicare [id number] 1950 Unknown [id number] 1950 Unknown [id number] .[id number] 1950 Unknown [id number] .[id number] 1950 Unknown [id number] .[id number] 1950 Unknown [id number] ..[id number] 1950 Unknown [id number] .[id number] 1950 Unknown [id number] 1950 Unknown [id number] 1950 Unknown [id number] 1950 Unknown [id number] [id number] 1950 Unknown [id number] 1950 Unknown [id number] Unknown Clinical Notes 09-11-2023 to 06-19-2024 Note Date & Type Note Facility 06-19-2024 Note Error [facility] 06-18-2024 Note Cardiovascular Medic [facility] SUBJECTIVE Chief Complaint Patient presents with [...] of both hands JESS (obstructive sleep apnea) Dwomj-3-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 [facility] 06-18-2024 Note Pt is here for a two month follow up. Review of Systems Neurological: Positive for light-headedness. [facility] 04-08-2024 Note Cardiovascular Medic [facility] SUBJECTIVE Chief Complaint Patient presents with [...] mellitus with hyperglycemia (CMS/HCC) SVT (supraventricular tachycardia) ([facility]) Short-term memory loss Tremor of both hands JESS (obstructive sleep apnea) Past Medical History: Diagnosis Date Aneurysm ([facility]/HCC) Atrial fibrillation ([facility]/HCC) Diabetes mellitus ([facility]/HCC) Hyperlipidemia Hypertension Obesity BMI 33.23 Family History [...] - unremarkable C (more content not included)... [facility] 03-13-2024 Note Patient: Vinayak Madrigal Procedure Summary Date: 03/13/24 Room / Location: [facility] PLUG PASTER 1 EP / [facility] (Cath) Anesthesia Start: 817 Anesthesia [...] no known notable events for this encounter. [facility] 03-13-2024 Note Patient: Vinayak Madrigal Procedure Summary Date: 03/13/24 Room / Location: [facility] PLUG PASTER 1 EP / [facility] HV [facility]ASCULAR LAB (Cath) Anesthesia Start: 817 [...] Line Transport: uneventful Patient condition is: stable [facility] 03-13-2024 Note ATRIAL FIBRILLATION ABLATION PROCEDURE NOTE [...] Coumadin ridge. Esophagus was mapped using the [employer]BRAND[employer] 3D mapping software and noted to be [...] medial was 16 (more content not included)... [facility] 03-13-2024 Note Airway Date/Time: 03/13/2024 8:39 AM Urgency: elective Airway not difficult General Information and Staff Patient location during procedure: OR Anesthesiologist: Dana Huertas MD Resident/MEDICAL RECORDS CUSTODIAN/KARSTEN: Simeon Garcia DO Performed: resident/MEDICAL RECORDS CUSTODIAN/KARSTEN Indications and Patient Condition Indications for airway management: anesthesia Spontaneous Ventilation: absent Sedation level: deep Preoxygenated: yes Patient position: sniffing Mask difficulty assessment: 1 - vent by mask Final Airway Details Final airway type: endotracheal airway Successful airway: ETT Cuffed: yes Successful intubation technique: direct laryngoscopy Facilitating devices/methods: intubating stylet Endotracheal tube insertion site: oral Blade: Sorot Blade size: #2 ETT size (mm): 7.5 Cormack-Lehane Classification: grade I - full view of glottis Placement verified by: chest auscultation and capnometry Measured from: lips ETT to lips (cm): 22 Number of attempts at approach: 1 Number of other approaches attempted: 0 Additional Comments Upper and lower dentures removed before laryngoscopy. Given to circulating RN in a denture container. [facility] 03-13-2024 Note Arterial Line: Date/Time: 03/13/2024 7:55 [...] Staffing Performed: resident/NEGIN/KARSTEN Anesthesiologist: Dana Huertas MD Resident/MEDICAL RECORDS CUSTODIAN: Simeon Garcia DO Performed by: Simeon Garcia DO Authorized by: Dana Huertas MD [facility] 03-13-2024 Note Patient: Vinayak Madrigal Procedure Information Date/Time: 03/13/24 0800 Procedure: Ablation a-fib paroxysmal Location: [facility] PLUG PASTER 1 / [facility] (Cath) Providers: Pantera Tomlin MD [...] 110 QT Interval 448 QTC CALCULATION(BAZETT) 486 R-[place] -7 T Wave [place] 8 Impression Atrial fibrillation with a competing [...] Plan discussed with attending. 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 Do not wear perfume, make-up, nail ivorian, or lotions on the day of your [...] need to make any changes, please call [phone]. Notify your surgeon if you develop any illness such as a cold, cough, fever, sore throat or vomiting between now and your surgery. Thank you for entrusting us with your care. [facility] Surgical Services Team [facility] 02-05-2024 Note Procedure: Multidetector CT Pulmonary Angiogram [...] achievable. Electronically signed: Michael Velez. Jhonny Bruno [facility] Comment on above: Order Comment: Ck wolf schedule prior to February 13 01-29-2024 Note [place] Electrophysiology Consult Note Reason for visit: Afib 01/29/24 Patient here for H&P and to obtain consent for upcoming atrial fibrillation ablation procedure scheduled for 02/14/[address] Tomlin at [facility]. Denies chest pain, SOB, palpitations, lightheadedness/syncope, [...] on file Intimate Partner Violence: Unknown (12/27/2023) [place] Safety & Environment Fear of Current or [...] results found f (more content not included)... [facility] 12-11-2023 Note [place] Electrophysiology Consult Note Reason [...] Value Ventricular Rate [address] Interval 202 QRS DURATION 114 QT Interval 436 QTC CALCULATION(BAZETT) 506 P [place] 51 R-[place] 0 T Wave [place] 38 Impression Sinus rhythm with occasional Premature ventricular (more content not included)... [facility] 10-15-2023 Note EKG completed and pt in NSR. Dr. Tomlin cancelled procedure. [facility] 09-11-2023 Note [facility]rophys[facility] Consult Note Reason for visit: Afib Date of Telehealth Visit: 09/11/2023 The patient was notified that using 3rd democrat telecommunication application (e.g., stylefruits) is not HIPPA compliant and may carry some privacy risks. Yes The visit was conducted [id number]-[id number] with the use of audio and video [...] Amio and then (more content not included)... [facility] Summary Purpose Family History No Family History [...] and content) DATE CREATED AUTHOR 07/30/2018 [facility] DATE CREATED AUTHOR AUTHOR'S ORGANIZ ATION 05/31/2019 [facility] DATE CREATED AUTHOR AUTHOR'S ORGANIZ ATION 01/10/2023 [facility] DATE CREATED AUTHOR AUTHOR'S ORGANIZ ATION 07/13/2024 [facility] DATE CREATED AUTHOR AUTHOR'S ORGANIZ ATION 07/30/2024 [facility] EPIC FOR RECORDS PERTAINING TO PATIENTS [...] BE BASED ON THE PRIMARY CLINICAL RECORDS. [facility]. provides no warranty or guarantee of the accuracy or completeness of information in this document.
[2024-07-31 12:47] LABS: Anion Gap 9.8; BUN Creatinine Ratio 16.5; Calcium 9.6 mg/dL (8.5-10.1); Carbon Dioxide 27.9 mmol/L (21.0-32.0); Chloride 99 mmol/L (98-107); Estimated GFR (African America >60 (>=60); Estimated GFR (Non-African Ame 50 (>=60); Glucose 349 mg/dL (74-106); Potassium 4.7 mmol/L (3.5-5.1); Sodium 132 mmol/L (136-145)
== END 2024-07-31 10:54 | disposition home or self-care (01) ==
LOC: LAB 10:54
PROVIDERS: PCP Internal Medicine; Visit Provider Nurse Practitioner Family
DX: I11.9 Hypertensive heart disease without heart failure (principal)
CPT/HCPCS: 36415; 80048

== ENCOUNTER 2024-09-01 07:34 | Outpatient (RCR) | payer MEDICARE, OTHER, SELFPAY ==
[2024-08-11 11:58] VITALS: BP 160/75; PULSE 62; TEMP 36.6; O2SAT 93
[2024-08-11] MEDS: PROTEINASE INHIBITOR IV (12:40)
[2024-08-11] MEDS: ALPHA IV (12:40)
[2024-08-18 11:05] VITALS: BP 146/77; PULSE 64; TEMP 36.3; O2SAT 95
[2024-08-18] MEDS: PROTEINASE INHIBITOR IV (11:37)
[2024-08-18] MEDS: ALPHA IV (11:37)
[2024-08-25 11:15] VITALS: BP 134/80; PULSE 73; TEMP 36.1; O2SAT 95
[2024-08-25] MEDS: ALPHA IV (11:21)
[2024-08-25] MEDS: PROTEINASE INHIBITOR IV (11:21)
[2024-09-01] MEDS: PROTEINASE INHIBITOR IV (10:57)
[2024-09-01] MEDS: ALPHA IV (10:57)
== END 2024-09-04 23:59 | disposition home or self-care (01) ==
LOC: INF 07:34
PROVIDERS: PCP Internal Medicine; Visit Provider Internal Medicine
DX: J43.2 Centrilobular emphysema (principal); E88.01 Alpha-1-antitrypsin deficiency
CPT/HCPCS: 96365; J0256

== ENCOUNTER 2024-10-01 07:38 | Outpatient (RCR) | payer MEDICARE, OTHER, SELFPAY ==
[2024-09-05 00:07] VITALS: BP 134/80; PULSE 73; TEMP 36.1; O2SAT 95
[2024-09-12 11:06] VITALS: BP 157/94; PULSE 57; TEMP 36.6; O2SAT 96
[2024-09-12] MEDS: ALPHA IV (11:15)
[2024-09-12] MEDS: PROTEINASE INHIBITOR IV (11:15)
[2024-09-17] MEDS: ALPHA IV (11:05)
[2024-09-17] MEDS: PROTEINASE INHIBITOR IV (11:05)
[2024-09-17 11:08] VITALS: BP 134/74; PULSE 61; TEMP 36.5; O2SAT 97
[2024-09-24 11:14] VITALS: BP 148/84; PULSE 64; TEMP 36.2; O2SAT 95
[2024-09-24] MEDS: ALPHA-1-PROTEINASE INHIBITOR 6,348 MG in EMPTY BAG 0 ML 240 MG IV (12:00)
[2024-10-01 11:00] VITALS: BP 140/81; PULSE 77; TEMP 36.5; O2SAT 99
[2024-10-01] MEDS: ALPHA-1-PROTEINASE INHIBITOR 6,348 MG in EMPTY BAG 0 ML 240 MG IV (11:30)
--- NOTE | 2024-10-01 11:39 | PC.NURSE ---
1100:Pt. to [facility] amb. for Prolastin infusion. Weight obtained, called to pharmacy. Seated in recliner. VSS. IV initiated to left hand on second attempt. See documentation. Pt. tolerated with min. c/o pain. Flushes easily without edema or pain. 1130: IV Prolastin initiated at this time.
--- NOTE | 2024-10-01 12:13 | PC.NURSE ---
1200: Prolastin infusion completed without s&s of adverse reaction. IV d/c'd, pressure to site. Pt. without c/o. D/c'd amb. to home.
== END 2024-10-01 12:51 | disposition home or self-care (01) ==
LOC: INF 07:38
PROVIDERS: PCP Internal Medicine; Visit Provider Internal Medicine
DX: E88.01 Alpha-1-antitrypsin deficiency (principal); J43.2 Centrilobular emphysema
CPT/HCPCS: 96365; J0256

== ENCOUNTER 2024-10-09 13:09 | Outpatient (RCR) | payer MEDICARE, OTHER, SELFPAY | END 2024-11-04 14:25 | disposition home or self-care (01) | LOC: PT 13:09 | PROVIDERS: PCP Internal Medicine; Visit Provider Psychiatry & Neurology Neurology | DX: M21.372 Foot drop, left foot (principal) | CPT/HCPCS: 97112; 97162 ==

== ENCOUNTER 2024-10-30 07:42 | Outpatient (RCR) | payer MEDICARE, OTHER, SELFPAY ==
[2024-10-08] MEDS: PROTEINASE INHIBITOR IV (11:32)
[2024-10-08] MEDS: ALPHA IV (11:32)
[2024-10-08 11:53] VITALS: BP 154/81; PULSE 81; TEMP 36.2; O2SAT 94
[2024-10-15] MEDS: PROTEINASE INHIBITOR IV (11:10)
[2024-10-15] MEDS: ALPHA IV (11:10)
[2024-10-15 12:18] VITALS: BP 138/84; PULSE 84; TEMP 36.6
[2024-10-22] MEDS: ALPHA IV (11:11)
[2024-10-22] MEDS: PROTEINASE INHIBITOR IV (11:11)
[2024-10-22 11:15] VITALS: BP 137/81; PULSE 87; TEMP 36.4; O2SAT 95
[2024-10-30 11:00] VITALS: BP 143/84; PULSE 84; TEMP 36.8; O2SAT 93
[2024-10-30] MEDS: ALPHA IV (11:29)
[2024-10-30] MEDS: PROTEINASE INHIBITOR IV (11:29)
== END 2024-10-31 12:31 | disposition home or self-care (01) ==
LOC: INF 07:42
PROVIDERS: PCP Internal Medicine; Visit Provider Internal Medicine
DX: E88.01 Alpha-1-antitrypsin deficiency (principal); J43.2 Centrilobular emphysema
CPT/HCPCS: 96365; J0256

== ENCOUNTER 2024-11-05 10:39 | Outpatient (RCR) | payer MEDICARE, OTHER, SELFPAY | END 2024-11-21 15:54 | disposition home or self-care (01) | LOC: PT 10:39 | PROVIDERS: PCP Internal Medicine; Visit Provider Psychiatry & Neurology Neurology | DX: M21.372 Foot drop, left foot (principal) | CPT/HCPCS: 97110; 97112 ==

== ENCOUNTER 2024-12-03 07:37 | Outpatient (RCR) | payer MEDICARE, OTHER, SELFPAY ==
[2024-11-06 11:00] VITALS: BP 150/89; PULSE 79; TEMP 36.4; O2SAT 95
[2024-11-06] MEDS: ALPHA-1-PROTEINASE INHIBITOR 6,576 MG in EMPTY BAG 0 ML 240 MG IV (11:09)
[2024-11-12 11:58] VITALS: BP 159/97; PULSE 80; TEMP 36; O2SAT 94
[2024-11-12] MEDS: ALPHA-1-PROTEINASE INHIBITOR 6,576 MG in EMPTY BAG 0 ML 240 MG IV (12:15)
[2024-11-19 10:58] VITALS: BP 158/84; PULSE 89; TEMP 36.2; O2SAT 93
[2024-11-19] MEDS: PROTEINASE INHIBITOR IV (11:17)
[2024-11-19] MEDS: ALPHA IV (11:17)
[2024-12-03 11:29] VITALS: BP 122/80; PULSE 80; TEMP 36.5; O2SAT 92
[2024-12-03] MEDS: ALPHA-1-PROTEINASE INHIBITOR 6,468 MG in EMPTY BAG 0 ML 258.72 MG IV (11:35)
== END 2024-12-05 23:59 | disposition home or self-care (01) ==
LOC: INF 07:37
PROVIDERS: PCP Internal Medicine; Visit Provider Internal Medicine
DX: E88.01 Alpha-1-antitrypsin deficiency (principal); J43.2 Centrilobular emphysema
CPT/HCPCS: 96365; J0256

== ENCOUNTER 2024-12-31 07:36 | Outpatient (RCR) | payer MEDICARE, OTHER, SELFPAY ==
[2024-12-10 10:55] VITALS: BP 150/84; PULSE 75; TEMP 36.5; O2SAT 93
[2024-12-10] MEDS: ALPHA-1-PROTEINASE INHIBITOR 6,222 MG in EMPTY BAG 1 ML 240 MG IV (11:07)
[2024-12-17 11:01] VITALS: BP 161/92; PULSE 86; TEMP 36.4; O2SAT 95
[2024-12-17] MEDS: ALPHA-1-PROTEINASE INHIBITOR 6,222 MG in EMPTY BAG 0 ML 240 MG IV (11:04)
[2024-12-31 10:55] VITALS: BP 169/80; PULSE 87; TEMP 36.5; O2SAT 92
[2024-12-31] MEDS: ALPHA-1-PROTEINASE INHIBITOR 6,468 MG in EMPTY BAG 0 ML 240 MG IV (10:56)
== END 2024-12-31 13:16 | disposition home or self-care (01) ==
LOC: INF 07:36
PROVIDERS: PCP Internal Medicine; Visit Provider Internal Medicine
DX: E88.01 Alpha-1-antitrypsin deficiency (principal); J43.2 Centrilobular emphysema
CPT/HCPCS: 96365; J0256

== ENCOUNTER 2025-01-28 07:31 | Outpatient (RCR) | payer MEDICARE, OTHER, SELFPAY ==
[2025-01-08 11:00] VITALS: BP 150/79; PULSE 121; TEMP 36.6; O2SAT 95
[2025-01-08] MEDS: PROTEINASE INHIBITOR IV (11:05)
[2025-01-08] MEDS: ALPHA IV (11:05)
[2025-01-14 10:57] VITALS: BP 125/77; PULSE 68; TEMP 36.2; O2SAT 92
[2025-01-14] MEDS: PROTEINASE INHIBITOR IV (11:10)
[2025-01-14] MEDS: ALPHA IV (11:10)
[2025-01-21 10:53] VITALS: BP 125/79; PULSE 69; TEMP 35.8; O2SAT 92
[2025-01-21] MEDS: ALPHA-1-PROTEINASE INHIBITOR 6,576 MG in EMPTY BAG 0 ML 240 MG IV (11:12)
[2025-01-28 10:57] VITALS: BP 158/75; PULSE 71; TEMP 36.2; O2SAT 96
[2025-01-28] MEDS: ALPHA-1-PROTEINASE INHIBITOR 6,576 MG in EMPTY BAG 0 ML 240 MG IV (11:36)
== END 2025-01-28 13:09 | disposition home or self-care (01) ==
LOC: INF 07:31
PROVIDERS: PCP Internal Medicine; Visit Provider Internal Medicine
DX: E88.01 Alpha-1-antitrypsin deficiency (principal); J43.2 Centrilobular emphysema
CPT/HCPCS: 96365; J0256

== ENCOUNTER 2025-03-04 07:39 | Outpatient (RCR) | payer MEDICARE, OTHER, SELFPAY ==
[2025-02-11 10:58] VITALS: BP 117/74; PULSE 76; TEMP 36.4; O2SAT 94
[2025-02-11] MEDS: ALPHA IV (11:09)
[2025-02-11] MEDS: PROTEINASE INHIBITOR IV (11:09)
[2025-02-18 11:00] VITALS: BP 158/82; PULSE 78; TEMP 36.5; O2SAT 93
[2025-02-18] MEDS: ALPHA-1-PROTEINASE INHIBITOR 6,756 MG in EMPTY BAG 0 ML 240 MG IV (11:10)
[2025-02-25 11:03] VITALS: BP 121/77; PULSE 75; TEMP 36.1; O2SAT 98
[2025-02-25] MEDS: ALPHA-1-PROTEINASE INHIBITOR 6,756 MG in EMPTY BAG 0 ML 240 MG IV (11:03)
[2025-03-04 11:00] VITALS: BP 134/81; PULSE 69; TEMP 36.3; O2SAT 93
[2025-03-04] MEDS: ALPHA IV (11:05)
[2025-03-04] MEDS: PROTEINASE INHIBITOR IV (11:05)
== END 2025-03-04 23:59 | disposition home or self-care (01) ==
LOC: INF 07:39
PROVIDERS: PCP Internal Medicine; Visit Provider Internal Medicine
DX: E88.01 Alpha-1-antitrypsin deficiency (principal); J43.2 Centrilobular emphysema
CPT/HCPCS: 96365; J0256

== ENCOUNTER 2025-03-18 07:35 | Outpatient (RCR) | payer MEDICARE, OTHER, SELFPAY ==
[2025-03-11 11:04] VITALS: BP 164/90; PULSE 81; TEMP 36.4; O2SAT 93
[2025-03-11] MEDS: PROTEINASE INHIBITOR IV (11:08)
[2025-03-11] MEDS: ALPHA IV (11:08)
[2025-03-18 10:55] VITALS: BP 153/69; PULSE 74; TEMP 36.4; O2SAT 92
[2025-03-18] MEDS: ALPHA-1-PROTEINASE INHIBITOR 6,756 MG in EMPTY BAG 0 ML 240 MG IV (11:05)
== END 2025-04-04 23:59 | disposition home or self-care (01) ==
LOC: INF 07:35
PROVIDERS: PCP Internal Medicine; Visit Provider Internal Medicine
DX: E88.01 Alpha-1-antitrypsin deficiency (principal); J43.2 Centrilobular emphysema
CPT/HCPCS: 96365; J0256

== ENCOUNTER 2025-04-29 10:34 | Outpatient (RCR) | payer MEDICARE, OTHER, SELFPAY ==
[2025-04-08] MEDS: ALPHA-1-PROTEINASE INHIBITOR 6,756 MG in EMPTY BAG 0 ML 270.24 MG IV (11:31)
[2025-04-08 11:33] VITALS: BP 130/80; PULSE 71; TEMP 36.6; O2SAT 93
[2025-04-15 11:00] VITALS: BP 152/72; PULSE 80; TEMP 36.3; O2SAT 93
[2025-04-15] MEDS: ALPHA IV (11:09)
[2025-04-15] MEDS: PROTEINASE INHIBITOR IV (11:09)
[2025-04-29] MEDS: PROTEINASE INHIBITOR IV (11:06)
[2025-04-29] MEDS: ALPHA IV (11:06)
[2025-04-29 11:08] VITALS: BP 125/65; TEMP 36.3; O2SAT 93
== END 2025-05-04 23:59 | disposition home or self-care (01) ==
LOC: INF 10:34
PROVIDERS: PCP Internal Medicine; Visit Provider Internal Medicine
DX: E88.01 Alpha-1-antitrypsin deficiency (principal); J43.2 Centrilobular emphysema
CPT/HCPCS: 96365; J0256

== ENCOUNTER 2025-05-18 11:34 | Outpatient (OUT) | payer MEDICARE, OTHER, SELFPAY ==
--- NOTE | 2025-05-18 11:39 | US_ITS ---
The [address] [address] Patient Name: VINAYAK ANN MRN: [id number] date: 1950 Sex: M Assigned Patient Location: [place] Current Patient Location: [place] Accession/Order Number: [id number] Exam Date: 05/18/2025 12:38 Report Date: 05/18/2025 12:48 At the request of: RADHA LOCKWOOD MD Procedure: US abdominal aortic aneurysm ULTRASOUND OF THE ABDOMINAL AORTA CLINICAL DATA: Follow-up aortic aneurysm COMPARISON: 12/27/2022 Real-time ultrasound evaluation of the abdominal aorta was performed. Evaluation is slightly limited due to increased bowel gas. The aortic diameter proximally measures 2.3 by 2.6 cm. Through the midsegment, the diameter measures 2.1 x 2.1 cm. Distally, there is slight fusiform dilatation with the aorta measuring approximately 2.6 x 2.0 cm. 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 There is probably no significant change. The bifurcation is visualized and the left iliac artery is slightly larger in caliber than the right. There is no periaortic fluid. US/US abdominal aortic aneurysm IMPRESSION: DISTAL ABDOMINAL AORTIC ANEURYSM WITH AP DIAMETER OF APPROXIMATELY 2.6 CM. Impression dictated by: Karrie Desai M.D. 05/18/2025 12:48 PM Dictation Location: [place] [address] Electronically authenticated by: [id number] Y Date: 05/18/2025 12:48
== END 2025-05-18 11:35 | disposition home or self-care (01) ==
LOC: US 11:35
PROVIDERS: PCP Internal Medicine; Visit Provider Internal Medicine Cardiovascular Disease
DX: I71.40 Abdominal aortic aneurysm, without rupture, unspecified (principal)
CPT/HCPCS: 76775

== ENCOUNTER 2025-06-03 07:27 | Outpatient (RCR) | payer MEDICARE, OTHER, SELFPAY ==
[2025-05-06] MEDS: PROTEINASE INHIBITOR IV (11:07)
[2025-05-06] MEDS: ALPHA IV (11:07)
[2025-05-06 11:09] VITALS: BP 137/80; PULSE 75; TEMP 36.4; O2SAT 94
[2025-05-13 11:00] VITALS: BP 135/77; PULSE 63; TEMP 36.4; O2SAT 93
[2025-05-13] MEDS: PROTEINASE INHIBITOR IV (11:04)
[2025-05-13] MEDS: ALPHA IV (11:04)
[2025-05-27 10:54] VITALS: BP 150/79; PULSE 76; TEMP 36.4; O2SAT 97
[2025-05-27] MEDS: ALPHA IV (10:58)
[2025-05-27] MEDS: PROTEINASE INHIBITOR IV (10:58)
[2025-06-03 10:56] VITALS: BP 127/77; PULSE 66; TEMP 36.6; O2SAT 93
[2025-06-03] MEDS: PROTEINASE INHIBITOR IV (11:10)
[2025-06-03] MEDS: ALPHA IV (11:10)
== END 2025-06-04 23:59 | disposition home or self-care (01) ==
LOC: INF 07:27
PROVIDERS: PCP Internal Medicine; Visit Provider Internal Medicine
DX: E88.01 Alpha-1-antitrypsin deficiency (principal); J43.2 Centrilobular emphysema
CPT/HCPCS: 96365; J0256

== ENCOUNTER 2025-07-01 10:54 | Outpatient (RCR) | payer MEDICARE, OTHER, SELFPAY ==
[2025-06-10 10:58] VITALS: BP 153/79; PULSE 65; TEMP 36.3; O2SAT 95
[2025-06-10] MEDS: PROTEINASE INHIBITOR IV (11:04)
[2025-06-10] MEDS: ALPHA IV (11:04)
[2025-06-17 12:06] VITALS: BP 120/72; PULSE 60; TEMP 36.4; O2SAT 95
[2025-06-17] MEDS: ALPHA IV (12:13)
[2025-06-17] MEDS: PROTEINASE INHIBITOR IV (12:13)
[2025-06-24] MEDS: PROTEINASE INHIBITOR IV (10:56)
[2025-06-24] MEDS: ALPHA IV (10:56)
[2025-06-24 11:01] VITALS: BP 124/75; PULSE 67; TEMP 36.2; O2SAT 98
[2025-07-01 10:55] VITALS: BP 165/85; PULSE 56; TEMP 36.4; O2SAT 96
[2025-07-01] MEDS: PROTEINASE INHIBITOR IV (11:03)
[2025-07-01] MEDS: ALPHA IV (11:03)
== END 2025-07-05 23:59 | disposition home or self-care (01) ==
LOC: INF 10:54
PROVIDERS: PCP Internal Medicine; Visit Provider Internal Medicine
DX: E88.01 Alpha-1-antitrypsin deficiency (principal); J43.2 Centrilobular emphysema
CPT/HCPCS: 96365; J0256

== ENCOUNTER 2025-07-29 11:01 | Outpatient (RCR) | payer MEDICARE, OTHER, SELFPAY ==
[2025-07-08 10:55] VITALS: BP 126/73; PULSE 86; TEMP 36.8; O2SAT 93
[2025-07-08] MEDS: PROTEINASE INHIBITOR IV (11:29)
[2025-07-08] MEDS: ALPHA IV (11:29)
[2025-07-15] MEDS: ALPHA IV (11:03)
[2025-07-15] MEDS: PROTEINASE INHIBITOR IV (11:03)
[2025-07-15 11:04] VITALS: BP 116/75; PULSE 90; TEMP 36.5; O2SAT 97
[2025-07-22] MEDS: PROTEINASE INHIBITOR IV (10:59)
[2025-07-22] MEDS: ALPHA IV (10:59)
[2025-07-22 11:00] VITALS: BP 136/74; PULSE 65; TEMP 36.7; O2SAT 94
[2025-07-29 11:04] VITALS: BP 155/87; PULSE 67; TEMP 36.1; O2SAT 94
[2025-07-29] MEDS: PROTEINASE INHIBITOR IV (11:07)
[2025-07-29] MEDS: ALPHA IV (11:07)
== END 2025-08-04 23:59 | disposition home or self-care (01) ==
LOC: INF 11:01
PROVIDERS: PCP Internal Medicine; Visit Provider Internal Medicine
DX: E88.01 Alpha-1-antitrypsin deficiency (principal); J43.2 Centrilobular emphysema
CPT/HCPCS: 96365; J0256

== ENCOUNTER 2025-08-13 08:37 | Outpatient (OUT) | payer MEDICARE, OTHER, SELFPAY ==
--- NOTE | 2025-08-13 08:45 | CA_ITS ---
Patient Name: VINAYAK ANN MR#: [id number] : 1950 Exam Date: 08/13/2025 Ordering Doctor: DR. RADHA LOCKWOOD M.D. ECHOCARDIOGRAM REPORT PROCEDURE: CA ECHO DOPPLER COMPLETE INDICATIONS: Nonrheumatic mitral valve regurgitation COMPARISON: None. DESCRIPTION: COMPLETE ECHOCARDIOGRAM Real-time transthoracic echocardiography with 2D, M-mode, spectral and color flow Doppler performed. QUALITY: Technical quality was good. LEFT VENTRICLE: Normal chamber size. Mild concentric left ventricular hypertrophy. Global left ventricular systolic function is normal. LV EF: Estimated left ventricular ejection fraction is 55-60%. DIASTOLIC: Diastolic function is indeterminate. ATRIAL SEPTUM: LEFT ATRIUM: Mild dilatation. RIGHT ATRIUM: Mild dilatation. RIGHT VENTRICLE: Normal chamber size. Normal right ventricular systolic function. TRICUSPID VALVE: Normal mobility and thickness. No stenosis with trivial regurgitation. Mild pulmonary hypertension. RVSP 35 mmHg MITRAL VALVE: Normal mobility and thickness. No evidence of mitral valve stenosis. There is no mitral annular calcification. Mild mitral regurgitation. AORTIC VALVE: Normal trileaflet appearance. Thickened aortic valve. Normal leaflet mobility. No evidence of aortic valve stenosis. Trivial aortic regurgitation. AORTIC ROOT: Mildly dilated, measuring 4.4 cm. The ascending aorta is normal in size and measures 3.2 cm. PULMONIC VALVE: Normal thickness and mobility. No stenosis. Trivial regurgitation. PERICARDIUM: No evidence of pericardial effusion. IVC: Collapses with inspiration. Normal size. PLEURA: CONCLUSION: 1. Mild concentric left ventricular hypertrophy with normal systolic function. Estimated LVEF is 55 to 60%. 2. Normal right ventricular size and systolic function. 3. Mild biatrial dilatation. 4. Mild mitral regurgitation. 5. Mildly elevated right-sided pressures. 6. Mildly dilated aortic root measuring 4.4 cm. Normal size ascending aorta. Adult Echocardiography Procedure Report Left Ventricle LVEDD (3.7 - 5.6 cm): 4.32 cm LVESD (2.2 - 4.0 cm): 2.93 cm LVIVS thickness (0.6 - 1.2 cm): 1.20 cm LVPW thickness (0.5 - 1.0 cm): 1.22 cm e': 0.07 m/s E - e': 12.06 LVOT Max Gradient: 2.99 mm[Hg] LVOT Area (cm2): 0.86 m/s Peak Velocity (LVOT): 0.86 m/s Mean Velocity (LVOT): 0.52 m/s LVOT Diameter 2.21 cm Left Ventricular Ejection Fraction: 55-60 % Left Atrium LA Volume Index (2D A2C): 44.38 ml/m2 Left Atrium Systolic Dimension: 4.52 cm Mitral Valve MV E to A Ratio: 0.87 Mitral Valve A-Wave Peak Velocity: 0.97 m/s Mitral Valve E-Wave Peak Velocity: 0.84 m/s Right Ventricle RV Internal Diastolic Dimension: 3.95 cm Aorta AO Root Diam: 4.44 cm Ascending Ao Diam: 3.20 cm Aortic Valve AoV Area (Peak Elan): 2.42 cm2, 2.42 cm2 AoV Area (VTI): 2.23 cm2, 2.23 cm2 Peak Velocity(Antegrade Flow): 1.37 m/s Peak Gradient(Antegrade Flow): 7.50 mm[Hg] Mean Velocity(Antegrade Flow): 0.94 m/s Mean Gradient(Antegrade Flow): 4.01 mm[Hg] Velocity Time Integral: 35.31 cm Tricuspid Valve Peak Velocity (Regurgitant Flow): 2.56 m/s, 2.50 m/s, 2.84 m/s Pulmonic Valve Mean Gradient: 1.21 mm[Hg], 1.40 mm[Hg] Mean Velocity: 0.51 m/s, 0.55 m/s Peak Velocity: 0.84 m/s Peak Gradient: 2.87 mm[Hg], 2.82 mm[Hg] Right Atrium Right Atrium Systolic Pressure: 42.77 ml, 42.77 ml Dictated by: Francesco Harvey M.D. on 08/13/2025 at 09:59 Approved by: Francesco Harvey M.D. on 08/13/2025 at 10:06
--- OUTSIDE RECORDS SUMMARY | 2025-08-13 08:50 | XMS_ITS | CCD ---
Author Organization [facility] Care Team Providers Care Configuration Management Architect Name Role Phone PHYSICIAN, DEFAULT Unavailable Unavailable PHYSICIAN, DEFAULT Unavailable Unavailable PHYSICIAN, DEFAULT Unavailable Unavailable PHYSICIAN, DEFAULT Unavailable Unavailable BELÉN CORRALES Admitting Unavailable BELÉN CORRALES Attending Unavailable VICK, DR FELICIANO Primary Care Unavailable JARROD, DR MODE Souza Consulting Unavailable BELÉN CORRALES Consulting Unavailable SUZANNA RAMON Admitting Unavailable RAMON BRISENO Attending Unavailable VICK, DR FELICIANO Primary Care Unavailable INDEPENDENCE, DR LUIS MANUEL Urbina Consulting Unavailable RAMON BRISENO Consulting Unavailable Antony Zamarripa MD Primary Care Provider [phone] Antony Zamarripa MD Unavailable ANTONY ZAMARRIPA Primary Care Physician [phone] Al-Marrawi, Mhd Yaser Attending Unavailabl e Al-Marrawi, Mhd Yaser Admitting Unavailabl e Al-Marrawi, Mhd Yaser Attending Unavailabl e Al-Marrawi, Mhd Yaser Admitting Unavailabl e Al-Marrawi, Mhd Yaser Attending Unavailgrecia e Bennie Perdomo Referring Unavailable Al-Marrawi, Mhd Yaser Attending Unavailabl e Al-Marrawi, Mhd Yaser Attending Unavailabl e Al-Marrawi, Mhd Yaser Admitting Unavailabl e ANTONY ZAMARRIPA Attending Unavailable BENNIE PERDOMO Attending Unavailable ANTONY ZAMARRIPA Attending Unavailable ANTONY ZAMARRIPA Attending Unavailable BENNIE PERDOMO Attending Unavailable BENNIE PERDOMO Attending Unavailable ANTONY ZAMARRIPA Attending Unavailable RADHA CAVAZOS Attending Unavailable RADHA CAVAZOS Attending Unavailable Allergies Allergy Classification Reported Allergen(s) Allergy Type Date of Onset Reaction(s) Facility (9 sources) Penicillins; Translations: [penicillins] Drug allergy (disorder) 1 Eruption of skin (disorder) [facility] Repository (20 sources) Penicillin G Drug Allergy 3 Unknown, Rash [facility] Medications Current Medications Medication Drug Class(es) Dates Sig (Normalized) Sig (Original) [id number] 200 actuat albuterol 0.09 mg/actuat metered dose inhaler (2 sources) beta2-Adrenergic Agonist Start: 05-19-2025 take 2 puff(s) by inhalation every six hours albuterol HFA 90 mcg/act inhaler Inhale 2 puffs every 6 (six) hours if needed 05/19/2025 Active Alpha1-Proteinase Inhibitor (PROLASTIN IV) (6 sources) Alpha1-Proteinas e Inhibitor (PROLASTIN IV) Infuse into a venous catheter every 7 (seven) days Per dr baer Active amantadine hydrochloride 100 mg oral tablet (20 sources) Influenza A M2 Protein Inhibitor Start: 04-08-2024 End: 11-11-2025 amantadine (Symmetrel) 100 MG tablet Indications: Memory loss , Tremor , Parkinsonism, unspecified Parkinsonism type (HCC) Take 1 tablet (100 mg) by mouth in the morning and 1 tablet (100 mg) before bedtime. 1 po daily for 1 week then can increase to bid. 60 tablet 11 08/14/2024 08/14/2025 Active amLODIPine 5 mg oral tablet (20 sources) Dihydropyridine Calcium Channel Raquel Start: 07-31-2024 End: 07-31-2025 take 1 tablet by mouth in the morning amLODIPine (Norvasc) 5 MG tablet Take 5 mg by mouth in the morning. 07/31/2024 07/31/2025 Active apixaban 5 mg oral tablet (20 sources) Factor Xa Inhibitor Start: 04-30-2025 apixaban (Eliquis) 5 MG tablet Indications: Paroxysmal atrial fibrillation (HCC) TAKE 1 TABLET TWICE A DAY 200 tablet 3 04/30/2025 Active Start: 01-14-2024 apixaban (Eliq uis) 5 MG tablet Indications: Paroxysmal atrial fibrillation (CMS/HCC) TAKE 1 TABLET TWICE A DAY 200 tablet 3 01/14/2024 Active atorvastatin 40 mg oral tablet (20 sources) HMG-CoA Reductase Inhibitor Start: 09-22-2024 take 1 tablet by mouth once daily atorvastatin 40 mg Tab 40 mg = 1 tab(s), Oral, Daily, # 30 tab(s), Refills(s) 0 Start Date: 09/22/24 Status: Ordered benazepril hydrochloride 40 mg oral tablet (20 sources) Angiotensin Converting Enzyme Inhibitor Start: 07-31-2024 End: 07-31-2025 take 1 tablet by mouth in the morning benazepril (Lotensin) 40 MG tablet Take 40 mg by mouth in the morning. 07/31/2024 07/31/2025 Active Breztri Aerosphere (2 sources) Start: 09-24-2024 Breztri Aerosphere 2 inh, BID, Refill(s) 0 Start Date: 09/24/24 Status: Ordered 120 actuat budesonide 0.16 mg/actuat / formoterol fumarate 0.0048 mg/actuat / glycopyrrolate 0.009 mg/actuat metered dose inhaler (12 sources) Corticosteroid, beta2-Adrenergic Agonist Start: 09-09-2024 Budeson-Glycopyrro l-Formoterol (Breztri Aerosphere) 160-9-4.8 MCG/ACT aerosol Inhale 2 puffs every 12 (twelve) hours 09/09/2024 Active carvedilol 12.5 mg oral tablet (20 sources) alpha-Adrenergic Raquel, beta-Adrenergic Raquel Start: 09-22-2024 take 1 tablet by mouth twice daily carvedilol 12.5 mg Tab 12.5 mg = 1 tab(s), Oral, BID, # 60 tab(s), Refills(s) 0 Start Date: 09/22/24 Status: Ordered Start: 01-14-2024 End: 08-07-2024 carvedilol (Coreg) 12.5 MG t ablet Indications: Benign essential hypertension (CMS/HCC) TAKE 1 TABLET TWICE A DAY 200 tablet 3 01/14/2024 08/07/2024 Discontinued (Dose adjustment) take 1 tablet by ivan th in the morning carvedilol (Coreg) 6.25 MG tablet Take 6.25 mg by mouth in the morning and 6.25 mg in the evening. Take with meals. Active celecoxib 200 mg oral capsule (20 sources) Nonsteroidal Anti-inflammatory Drug Start: 08-01-2023 End: 08-11-2025 take 1 capsule by mouth once daily celecoxib (CeleBREX) 200 MG capsule Indications: Displacement of cervical intervertebral disc Take 1 capsule (200 mg) by mouth Daily 90 capsule 3 08/11/2024 08/11/2025 Active empagliflozin 12.5 mg / metFORMIN hydrochloride 1000 mg oral tablet (20 sources) Biguanide, Sodium-Glucose Cotransporter 2 Inhibitor Start: 08-01-2023 End: 11-12-2025 take 1 tablet by mouth in the morning empagliflozin-metF ORMIN (Synjardy) 12.5-1000 MG Indications: Type 2 diabetes mellitus with hyperglycemia, without long-term current use of insulin (HCC) Take 1 tablet by mouth in the morning and 1 tablet in the evening. Take with meals. 180 tablet 3 11/12/2024 07/27/2025 Discontinued folic acid 1 mg oral tablet (20 sources) Start: 06-19-2024 End: 09-17-2024 take 1 tablet by mouth once daily folic acid (Folvite) 1 MG tablet Indications: B12 deficiency , Folic acid deficiency Take 1 tablet (1,000 mcg) by mouth Daily 90 tablet 1 08/14/2024 Active glimepiride 2 mg oral tablet (20 sources) Sulfonylurea Start: 08-01-2023 End: 08-07-2025 glimepiride (Amaryl) 2 MG tablet Indications: Type 2 diabetes mellitus with hyperglycemia, without long-term current use of insulin (HCC) TAKE 1 TABLET IN THE MORNING AND 1 TABLET IN THE EVENING WITH MEALS 180 tablet 3 10/13/2024 Active Multiple Vitamin (Multivitamin) tablet (20 sources) take 1 tablet by mouth once daily Multiple Vitamin (Multivitamin) tablet Take 1 tablet by mouth Daily Active phenazopyridine hydrochloride 200 mg oral tablet (4 sources) Start: 05-03-2019 Pyridium 200 mg Tab 200 mg = 1 tab(s), Oral, As Directed Start Date: 05/03/19 Status: Ordered Prolastin-C (2 sources) Start: 09-24-2024 Prolastin-C qWeek, Refills(s) 0 Start Date: 09/24/24 Status: Ordered SITagliptin 50 mg oral tablet (20 sources) Dipeptidyl Peptidase 4 Inhibitor Start: 09-11-2024 take 1 tablet by mouth in the morning SITagliptin (Januvia) 50 MG tablet Indications: Uncontrolled type 2 diabetes mellitus with hyperglycemia (HCC) Take 1 tablet (50 mg) by mouth in the morning and 1 tablet (50 mg) before bedtime. 200 tablet 3 09/11/2024 Active Start: 08-06-2024 End: 09-11-2024 take 1 tablet by mouth once daily SITagliptin (Januvia) 50 MG tablet Indications: Uncontrolled type 2 diabetes mellitus with hyperglycemia (CMS/HCC) Take 1 tablet (50 mg) by mouth Daily 90 tablet 3 08/11/2024 09/11/2024 Discontinued (Reorder) Start: 02-20-2024 take 1 tablet by ivan th once daily SITagliptin (Januvia) 50 MG tablet Indications: Uncontrolled type 2 diabetes mellitus with hyperglycemia (CMS/HCC) Take 1 tablet (50 mg) by mouth Daily 90 tablet 02/20/2024 Active Completed/Discontinued Medications Medication Drug Class(es) Dates Sig (Normalized) Sig (Original) amiodarone hydrochloride 200 mg oral tablet (8 sources) Antiarrhythmic Start: 09-11-2023 End: 08-07-2024 take 1 tablet by mouth in the morning amiodarone (Pacerone) 200 MG tablet Take 1 tablet by mouth in the morning and 1 tablet before bedtime. 09/11/2023 08/07/2024 Discontinued amLODIPine 10 mg / benazepril hydrochloride 20 mg oral capsule (8 sources) Dihydropyridine Calcium Channel Raquel, Angiotensin Converting Enzyme Inhibitor Start: 08-01-2023 End: 08-07-2024 Lotrel 10-20 MG capsule Indications: Benign essential hypertension (CMS/HCC) TAKE 1 CAPSULE DAILY 90 capsule 3 08/01/2023 08/07/2024 Discontinued fluticasone propionate 0.05 mg/actuat metered dose nasal spray (14 sources) Corticosteroid Start: 07-26-2022 End: 09-16-2024 take 1 spray(s) nasal route in the morning fluticasone (Flonase) 50 MCG/ACT nasal spray Administer 1 spray into each nostril in the morning and 1 spray before bedtime. 07/26/2022 09/16/2024 Discontinued (Med list cleanup) 30 actuat fluticasone furoate 0.1 mg/actuat / umeclidinium 0.0625 mg/actuat / vilanterol 0.025 mg/actuat dry powder inhaler (5 sources) Anticholinergic, Corticosteroid, beta2-Adrenergic Agonist Start: 07-30-2024 End: 09-11-2024 take 1 puff(s) by inhalation once daily Fluticasone-Umeclid in-Vilant (Trelegy Ellipta) 100-62.5-25 MCG/ACT aerosol powder Inhale 1 puff Daily 07/30/2024 09/11/2024 Discontinued vitamin b12 1 mg oral capsule (8 sources) Vitamin B12 Start: 06-19-2024 End: 09-17-2024 take 1 capsule by mouth once daily Cyanocobalamin 1000 MCG capsule Indications: B12 deficiency , Folic acid deficiency Take 1,000 mg by mouth Daily 30 capsule 2 06/19/2024 08/07/2024 Discontinued Problems Active Problems Problem Classification Problem Date Documented Date Episodic/Chronic Acquired foot deformities (6 sources) Left foot drop; Translations: [Foot drop, left foot] 09-16-2024 Episodic Aortic; peripheral; and visceral artery aneurysms (20 sources) Abdominal aortic aneurysm, without rupture; Translations: [Abdominal aortic aneurysm without rupture] Onset: 01-14-2022 Chronic Cardiac dysrhythmias (20 sources) Cardiac arrhythmia; Translations: [Cardiac arrhythmia, unspecified] Onset: 07-25-2023 07-25-2023 Chronic Chronic kidney disease (4 sources) Chronic kidney disease stage 3A ; Translations: [Chronic kidney disease, stage 3a (HCC) (CMS/HCC)] 09-11-2024 Chronic Chronic obstructive pulmonary disease and bronchiectasis (20 sources) Pulmonary emphysema in alpha-1 PI deficiency; Translations: [Other emphysema] Onset: 09-11-2024 09-11-2024 Chronic Diabetes mellitus with complications (20 sources) Peripheral neuropathy due to type 2 diabetes mellitus; Translations: [Type 2 diabetes mellitus with diabetic polyneuropathy] Onset: 07-25-2023 07-25-2023 Chronic Disorders of lipid metabolism (20 sources) Pure hypercholesterolemia ; Translations: [Pure hypercholesterolemia , unspecified] Onset: 04-09-2020 Resolved: 08-15-2024 07-25-2023 Chronic Essential hypertension (20 sources) Benign essential hypertension; Translations: [Essential (primary) hypertension] Onset: 07-25-2023 07-25-2023 Chronic Heart valve disorders (2 sources) Nonrheumatic mitral (valve) insufficiency; Translations: [Nonrheumatic mitral (valve) insufficiency] Onset: 08-07-2025 Chronic Hyperplasia of prostate (20 sources) Benign prostatic hypertrophy without outflow obstruction; Translations: [Benign prostatic hyperplasia without lower urinary tract symptoms] Onset: 07-25-2023 07-25-2023 Chronic Hypertension with complications and secondary hypertension (20 sources) Hypertensive heart disease; Translations: [Hypertensive heart disease without heart failure] Onset: 07-25-2023 07-25-2023 Chronic Immunity disorders (1 source) Common variable agammaglobulinemia; Translations: [Nonfamilial hypogammaglobulinemi a] Onset: 09-22-2024 Chronic Other and ill-defined heart disease (20 sources) Diastolic dysfunction; Translations: [Other ill-defined heart diseases] Onset: 07-25-2023 07-25-2023 Chronic Other and ill-defined heart disease (20 sources) Left ventricular hypertrophy; Translations: [Cardiomegaly] Onset: 07-25-2023 07-25-2023 Chronic Other and ill-defined heart disease (20 sources) Cardiomegaly; Translations: [Cardiomegaly] Onset: 06-26-2018 01-07-2024 Chronic Other hereditary and degenerative nervous system conditions (4 sources) Essential tremor; Translations: [Essential tremor] 09-16-2024 Chronic Other nervous system disorders (1 source) Polyneuropathy; Translations: [Polyneuropathy, unspecified] Onset: 09-22-2024 Chronic Other nervous system disorders (7 sources) Tremor; Translations: [Tremor, unspecified] 08-14-2024 Episodic Other nervous system disorders (6 sources) Numbness and tingling sensation of skin; Translations: [Anesthesia of skin] 09-16-2024 Episodic Other nervous system disorders (2 sources) Impairment of balance; Translations: [Other abnormalities of gait and mobility] 07-28-2024 Episodic Other nutritional; endocrine; and metabolic disorders (20 sources) Body mass index 30+ - obesity; Translations: [Obesity, unspecified] Onset: 07-25-2023 07-25-2023 Chronic Other nutritional; endocrine; and metabolic disorders (18 sources) Wkwcq-7-lkzjblfonfs deficiency; Translations: [Mbohi-8-rqhgqrxkpcs deficiency] Onset: 09-11-2024 09-11-2024 Chronic Other screening for suspected conditions (not mental disorders or infectious disease) (20 sources) CT of chest abnormal; Translations: [Abnormal findings on diagnostic imaging of other specified body structures] Onset: 08-23-2023 08-23-2023 Chronic Other screening for suspected conditions (not mental disorders or infectious disease) (8 sources) Patient encounter status; Translations: [Encounter for screening for malignant neoplasm of prostate] 08-15-2024 Episodic Other upper respiratory disease (20 sources) Allergic rhinitis; Translations: [Other allergic rhinitis] Onset: 07-25-2023 07-25-2023 Chronic Other upper respiratory infections (20 sources) Chronic pansinusitis; Translations: [Chronic pansinusitis] Onset: 07-25-2023 07-25-2023 Chronic Residual codes; unclassified (20 sources) Obstructive sleep apnea syndrome; Translations: [Obstructive sleep apnea (adult) (pediatric)] Onset: 03-09-2024 03-09-2024 Chronic Residual codes; unclassified (20 sources) Hypersomnia disorder related to a known organic factor; Translations: [Hypersomnia due to medical condition] Onset: 03-09-2024 03-09-2024 Chronic Residual codes; unclassified (20 sources) Hypersomnia; Translations: [Hypersomnia, unspecified] Onset: 03-09-2024 03-09-2024 Chronic Residual codes; unclassified (13 sources) Amnesia; Translations: [Other amnesia] 08-14-2024 Episodic Spondylosis; intervertebral disc disorders; other back problems (20 sources) Cervical spondylosis; Translations: [Spondylosis without myelopathy or radiculopathy, cervical region] Onset: 07-25-2023 07-25-2023 Chronic Unclassified (9 sources) Parkinsonism; Translations: [Parkinsonism, unspecified Parkinsonism type (CMS/HCC)] 08-14-2024 Chronic Unclassified (3 sources) ABDOMINAL AA W/O RUPTURE UNSPCIFIED; Translations: [ABDOMINAL AA W/O RUPTURE UNSPCIFIED] Onset: 01-08-2023 Unclassified (4 sources) Finding of sensation of bladder 05-03-2019 Unclassified (1 source) Abdominal aortic aneurysm, without rupture, unspecified; Translations: [Abdominal aortic aneurysm, without rupture, unspecified] Onset: 02-06-2024 Past or Other Problems Problem Classification Problem Date Documented Da te Episodic/Chronic Genitourinary symptoms and ill-defined conditions (20 sources) Delay when starting to pass urine; Translations: [Hesitancy of micturition] Onset: 07-25-2023 07-25-2023 Episodic Nutritional deficiencies (20 sources) Folic acid deficiency; Translations: [Deficiency of other specified B group vitamins] Onset: 06-19-2024 06-19-2024 Episodic Other connective tissue disease (20 sources) Impingement syndrome of shoulder region; Translations: [Impingement syndrome of unspecified shoulder] Onset: 07-25-2023 07-25-2023 Episodic Other connective tissue disease (20 sources) Diastasis recti; Translations: [Separation of muscle (nontraumatic), other site] Onset: 07-25-2023 07-25-2023 Episodic Other lower respiratory disease (20 sources) Multiple nodules of lung; Translations: [Other nonspecific abnormal finding of lung field] Onset: 08-23-2023 08-23-2023 Episodic Other nervous system disorders (20 sources) Finding of hand region; Translations: [Tremor, unspecified] Onset: 01-07-2024 01-07-2024 Episodic Other nutritional; endocrine; and metabolic disorders (20 sources) Metabolic syndrome X; Translations: [Dysmetabolic syndrome X] Onset: 07-25-2023 Resolved: 08-15-2024 07-25-2023 Chronic Residual codes; unclassified (20 sources) Poor short-term memory ; Translations: [Other amnesia] Onset: 01-07-2024 01-07-2024 Episodic Spondylosis; intervertebral disc disorders; other back problems (20 sources) Cervical radiculopathy; Translations: [Radiculopathy, cervical region] Onset: 07-25-2023 07-25-2023 Episodic Unclassified (1 source) ABDOMINAL AA W/O RUPTURE UNSPCIFIED; Translations: [ABDOMINAL AA W/O RUPTURE UNSPCIFIED] Onset: 12-27-2022 Unclassified (1 source) Abdominal aortic aneurysm, without rupture, unspecified; Translations: [Abdominal aortic aneurysm, without rupture, unspecified] Onset: 11-17-2024 Results Test Name Value Interpretation Reference Range Facility Office Visiton 08-07-2025 Follow-up visit [id number] Vinayak Madrigal 1950 M Date Provider Department Center 08/07/2025 [id number] CAVAZOS CARD [facility] Family History Problem Relation Age of Onset Heart attack Father Coronary artery disease Father Coronary artery disease Brother Stroke Brother Family Status - Relation Status Age at Mother Father Brother Level of Service:08625 CO OFFICE/OUTPATIENT ESTABLISHED MOD MDM 30 MIN Reason for Visit and Comments: Follow-up [133943] - Patient is here today for a 6 month follow up with abdominal US. Patient denies chest pain, leg swelling. Complains of occasional SOB, TELLEZ, fatigue, Atrial Fibrillation [80] Abdominal aortic aneurysm [Other] Hypertension [056187] Cardiac arrhythmia [Other] Cardiomegaly [Other] Hyperlipidemia [182] Left ventricular hypertrophy [Other] SVT [Other] Normal [facility] - Hematology and Cell countson 07-27-2025 HbA1c (Bld) [Mass fraction] 7.3 % [facility] No Panel Informationon 07-27 [facility] 36on 05-20-2025 36 Regarding AAA US per formed on 05/19/2025: MD Christina Jung MA Please inform patient that the abdominal aortic aneurysm is still small. Patient has apt 06/03/2025. Normal [facility] US Abdominal Aorta for noni gilmore 05-18-2025 [place] [id number] Ultrasound Report Signed Patient: VINAYAK MADRIGAL MR#: [id number] : 1950 Acct:[id number] Age/Sex: 74 / M ADM Date: 05/18/25 Loc: US Attending Dr: Radha Cavazos M.D. Ordering Physician: Radha Cavazos M.D. Date of Service: 05/18/25 Procedure(s): US abdominal aortic aneurysm Accession Number(s): [id number] cc: ANTONY ZAMARRIPA ; Radha Cavazos M.D. [address] [address] Patient Name: VINAYAK MADRIGAL MRN: [id number] date: 1950 Sex: M Assigned Patient Location: US Current Patient Location: US Accession/Order Number: [id number] Exam Date: 05/18/2025 12:38 Report Date: 05/18/2025 12:48 At the request of: RADHA CAVAZOS MD Procedure: US abdominal aortic aneurysm ULTRASOUND OF THE ABDOMINAL AORTA CLINICAL DATA: Follow-up aortic aneurysm COMPARISON: 12/27/2022 Real-time ultrasound evaluation of the abdominal aorta was performed. Evaluation is slightly limited due to increased bowel gas. The aortic diameter proximally measures 2.3 by 2.6 cm. Through the midsegment, the diameter measures 2.1 x 2.1 cm. Distally, there is slight fusiform dilatation with the aorta measuring approximately 2.6 x 2.0 cm. 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 There is probably no significant change. The bifurcation is visualized and the left iliac artery is slightly larger in caliber than the right. There is no periaortic fluid. US/US abdominal aortic aneurysm IMPRESSION: DISTAL ABDOMINAL AORTIC ANEURYSM WITH AP DIAMETER OF APPROXIMATELY 2.6 CM. Impression dictated by: Karrie Desai M.D. 05/18/2025 12:48 PM Dictation Location: [place] [address] Electronically authenticated by: [id number] Y Date: 05/18/2025 12:48 Dictated By: Karrie Desai M.D. Signed By: 05/18/25 1251 DD/ 1248 TD/TT: Air Bag Builder: [facility] Radiology, Radiologi MD lauro - 05/18/2025 [place] [address] Ultrasound Report Signed Patient: VINAYAK MADRIGAL MR#: [id number] : 1950 Acct:[id number] Age/Sex: 74 / M ADM Date: 05/18/25 Loc: US Attending Dr: Radha Cavazos M.D. Ordering Physician: Radha Cavazos M.D. Date of Service: 05/18/25 Procedure(s): US abdominal aortic aneurysm Accession Number(s): [id number] cc: ANTONY ZAMARRIPA ; Radha Cavazos M.D. The [place] [id number] Patient Name: VINAYAK MADRIGAL MRN: [id number] date: 1950 Sex: M Assigned Patient Location: US Current Patient Location: US Accession/Order Number: [id number] Exam Date: 05/18/2025 12:38 Report Date: 05/18/2025 12:48 At the request of: RADHA CAVAZOS MD Procedure: US abdominal aortic aneurysm ULTRASOUND OF THE ABDOMINAL AORTA CLINICAL DATA: Follow-up aortic aneurysm COMPARISON: 12/27/2022 Real-time ultrasound evaluation of the abdominal aorta was performed. Evaluation is slightly limited due to increased bowel gas. The aortic diameter proximally measures 2.3 by 2.6 cm. Through the midsegment, the diameter measures 2.1 x 2.1 cm. Distally, there is slight fusiform dilatation with the aorta measuring approximately 2.6 x 2.0 cm. 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 There is probably no significant change. The bifurcation is visualized and the left iliac artery is slightly larger in caliber than the right. There is no periaortic fluid. US/US abdominal aortic aneurysm IMPRESSION: DISTAL ABDOMINAL AORTIC ANEURYSM WITH AP DIAMETER OF APPROXIMATELY 2.6 CM. Impression dictated by: Karrie Desai M.D. 05/18/2025 12:48 PM Dictation Location: [place] [address] Electronically authenticated by: [id number] Y Date: 05/18/2025 12:48 Dictated By: Karrie Desai M.D. Signed By: 05/18/25 1251 DD/ 1248 TD/TT: Air Bag Builder: [facility] Radiology Study observation (narrative) [facility] US Abdominal Aorta for noni ningOrdered By: Radiologist Radiology on 05-18-2025 [facility] Work Phone: Office Visiton 11-17-2024 Follow-up visit [id number] Vinayak Madrigal 1950 M Date Provider Department Center 11/17/2024 [id number] CAVAZOS [facility] Family History Problem Relation Age of Onset Heart attack Father Coronary artery disease Father Coronary artery disease Brother Stroke Brother Family Status - Relation Status Age at Father Brother Level of Service:61801 CO OFFICE/OUTPATIENT ESTABLISHED MOD MDM 30 MIN Reason for Visit and Comments: Atrial Fibrillation [80] - Denies palpitations, lightheadedness/syncope, and bleeding on Eliquis. Hypertension [105685] Hyperlipidemia [182] - Had routine labs with lipid panel in Aug 2024. abdominal aortic aneurysm [Other] - Denies chest pain. Shortness of Breath [962063] - Intermittent. Was shoveling snow the other day and says he was able to do so without SOB and/or chest pain. Normal [facility] ALBUMIN, RANDOM URINE W/CREA TININEon 11-13-2024 ALBUMIN, URINE 0.6 mg/dL Normal See Note: [facility] Comment on above: Order Comment: SPLIT 08/19/2024 FROM [id number] Result Comment: Refe rence Range: Reference Range Not established Performed By: #### [id number] #### [facility] [address], [address] [place] [address] Aquatic Laborer: Jalil Garcia MD ALBUMIN/CREATININE RATIO, RANDOM URINE 7 mg/g creat Normal <30 [facility] Comment on above: Order Comment: SPLIT 08/19/2024 FROM [id number] Result Comment: The ADA defines abnormalities in albumin excretion as follows: Albuminuria Category Result (mg/g creatinine) Normal to Mildly increased <30 Moderately increased 30-299 Severely increased > OR = 300 The ADA recommends that at least two of three specimens collected within a 3-6 month period be abnormal before considering a patient to be within a diagnostic category. Performed By: #### 6 517 #### [facility] [address], [address] [place] [address] Aquatic Laborer: Jalil Garcia MD Creatinine (U) [Mass/Vol] 88 mg/dL Normal 20-320 [facility] Comment on above: Order Comment: SPLIT 08/19/2024 FROM [id number] Performed By: #### 6 517 #### [facility] [address], [address] [place] [address] Aquatic Laborer: Jalil Garcia MD Laboratory - Hematology and Cell countson 11-12-2024 HbA1c (Bld) [Mass fraction] 8.9 % [facility] No Panel Informationon 11-12 [facility] .Interpretation:on HCV Ab IA Ql Comment Invalid Interpretation Code [facility] Comment on above: Result Comment: Not infected with HCV unless early or acute infection is suspected (which may be delayed in an immunocompromised individual), or other evidence exists to indicate HCV infection. Performed at: [address] [id number] [id number] PhD Mellissa Deleon Performed By: #### 2 [id number] #### [facility] [address] [place] [address] ACEon 10-01-2024 Angiotensin converting enzyme [Catalytic activity/Vol] 17 U/L Invalid Interpretation Code [facility] Comment on above: Result Comment: Perf ormed at: [address] [id number] [id number] PhD Mellissa Deleon Performed By: #### 1 [id number] #### [facility] [address] [place] [address] AFPon 10-01-2024 AFP.tumor marker [Mass/Vol] 3.5 ng/mL Invalid Interpretation Code 0.0-8.4 [facility] Comment on above: Result Comment: [facility] Electrochemiluminescence Immunoassay (ECLIA) Values obtained with different assay methods or kits cannot be used interchangeably. Results cannot be interpreted as absolute evidence of the presence or absence of malignant disease. This test is not interpretable in females. Performed at: [address] [phone] PhD Mellissa Deleon Performed By: #### 2 [id number] #### [facility] [address] [place] [address] IVAN w/Reflex if POSon 2023 Nuclear Ab Ql (S) Negative Invalid Interpretation Code Negative [facility] Comment on above: Result Comment: Perf ormed at: [address] [id number] [id number] PhD Mellissa Deleon Performed By: #### 1 [id number] #### [facility] [address] [place] [address] B2 Microon 10-01-2024 Ebde-1-Qhwpenvqwlvt n [Mass/Vol] 1.8 ug/mL Invalid Interpretation Code 0.6-2.4 [facility] Comment on above: Result Comment: [facility] Immulite 2000 Immunochemiluminometric assay (ICMA) Values obtained with different assay methods or kits cannot be used interchangeably. Results cannot be interpreted as absolute evidence of the presence or absence of malignant disease. Performed at: [address] [id number] MD Nestor Sharp Performed By: #### 1 [id number] #### [facility] [address] [id number] CA 19-9on 10-01-2024 Cancer Ag 19-9 Qn 13 unit/mL Invalid Interpretation Code 0-35 [facility] Comment on above: Result Comment: [facility] Electrochemiluminescence Immunoassay (ECLIA) Values obtained with different assay methods or kits cannot be used interchangeably. Results cannot be interpreted as absolute evidence of the presence or absence of malignant disease. Performed at: [address] [id number] [phone] PhD Mellissa Deleon Performed By: #### 1 [id number] #### [facility] [address] [place] [address] Comp panel: Leuk/Lym [id number] n 10-01-2024 Analysis and Gating Strategy Comment Invalid Interpretation Code [facility] Comment on above: Result Comment: 8 co phoebe analysis with CD45/SSC gating MAZNC Performed By: #### 1 [id number] #### [facility] [address] [id number] Annotation comment [Interpretation] Narrative Comment Invalid Interpretation Code [facility] Comment on above: Result Comment: The finding of monocytosis is non-specific and can be seen in both reactive/activated processes and neoplastic processes. If monocytosis persists (monocytes >/= 0.5 K/uL AND >/= 10% of leukocytes) without secondary etiologies identified, further evaluation of a myeloid neoplasm, such as chronic myelomonocytic leukemia, is warranted if clinically indicated. Recommend clinical correlation and follow up as appropriate. Performed By: #### 1 [id number] #### [facility] [address] [id number] Assessment of Leukocytes Comment Invalid Interpretation Code [facility] Comment on above: Result Comment: No m onoclonal B cell population is detected. kappa:lambda ratio 1.9 There is no loss of, or aberrant expression of, the cabrera T cell antigens to suggest a neoplastic T cell process. CD4:CD8 ratio 3.1 No circulating blasts are detected. There is no immunophenotypic evidence of abnormal myeloid maturation. A relative monocytosis is present, representing 10% of leukocytes (>500/uL). Rare monocytes show dim aberrant expression of CD56, a finding that can be seen in association with both reactive/activated processes as well as neoplastic processes. Analysis of the lymphocyte population shows: B cells 20%, T cells 56%, NK cells 24%. Performed By: #### 1 [id number] #### [facility] [address] [id number] Clinical information Comment Invalid Interpretation Code [facility] Comment on above: Result Comment: Acco mpanying CBC dated 09/22/2024 shows: WBC count 6.0, Hgb 16.2, Lily 4.0, Lym 1.2, Mon 0.6. Performed By: #### 1 [id number] #### [facility] [address] [id number] Immunophenotyping study Comment Invalid Interpretation Code [facility] Comment on above: Result Comment: CD2 Normal CD3 Normal CD4 Normal CD5 Normal CD7 Normal CD8 Normal CD10 Normal CD11b Normal CD13 Normal CD14 Normal CD16 Normal CD19 Normal CD20 Normal CD33 Normal CD34 Normal CD38 Normal CD45 Normal CD56 See Text CD57 Normal CD117 Normal HLA-DR Normal KAPPA Normal LAMBDA Normal CD64 Normal Performed By: #### 1 [id number] #### [facility] [address] [place] [address] Laboratory comment Sundeep (Report) Comment Invalid Interpretation Code [facility] Comment on above: Result Comment: Each antibody in this assay was utilized to assess for potential abnormalities of studied cell populations or to characterize identified abnormalities. This test was developed and its performance characteristics determined by [facility]. It has not been cleared or approved by the U.S. Food and Drug Administration. The FDA has determined that such clearance or approval is not necessary. This test is used for clinical purposes. It should not be regarded as investigational or for research. Performed at: -Y [facility] [place] [address] [facility] [place], [place] [id number] Formerly [facility] Sherrie Terrazas Performed at: [facility] [place] [address] [place], [place] [id number] [phone] MD Sherrie Terrazas Performed at: [facility] [address] [facility] [place] [phone] [facility] Sherrie Terrazas Performed By: #### 1 [id number] #### [facility] [address] [place] [address] Pathologist interpretation (Unsp spec) [Interp] Comment Invalid Interpretation Code [facility] Comment on above: Result Comment: 1) N o diagnostic immunophenotypic abnormality detected 2) Relative monocytosis with rare phenotypic aberrancy, representing 10% of leukocytes, see comment Performed By: #### 1 [id number] #### [facility] [address] [place] [address] Pathologist name Comment Invalid Interpretation Code [facility] Comment on above: Result Comment: Osman Ernandez M.D. Performed By: #### 1 [id number] #### [facility] [address] [place] [address] Specimen source Nom (Unsp spec) Comment Invalid Interpretation Code [facility] Comment on above: Result Comment: Monique pheral blood Performed By: #### 1 [id number] #### [facility] [address] [place] [address] Viable cells/100 cells (Unsp spec) Comment Invalid Interpretation Code [facility] Comment on above: Result Comment: 84% Performed By: #### 1 [id number] #### [facility] [address] [place] [address] Copper Lvlon 10-01-2024 Copper [Mass/Vol] 110 microgram/dL Invalid Interpretation Code 20-453 [facility] Comment on above: Result Comment: This test was developed and its performance characteristics determined by [facility]. It has not been cleared or approved by the Food and Drug Administration. Detection Limit = 5 Performed at: [facility] [address] [place] [id number] [id number] MD Nestor Sharp Performed By: #### 1 [id number] #### [facility] [address] [place] [address] Flow Interp 16 or moreon Flow Interp 16 or more Performed Invalid Interpretation Code [facility] Comment on above: Result Comment: Perf ormed at: -Y [facility] [address] [place], [place] [id number] [id number] MDPhD Chenn Anjen Performed By: #### 1 [id number] #### [facility] [address] [place] [address] Flow Marker, Firston 024 Flow Marker, First Performed Invalid Interpretation Code [facility] Comment on above: Result Comment: Perf ormed at: -Y [facility] [place] [address] [place] [id number] [id number] MDPhD Chenn Anjen Performed By: #### 1 [id number] #### [facility] [address] [place] [address] Flow Markers X 15on 10-01-20 24 Flow Markers X 15 Performed Invalid Interpretation Code [facility] Comment on above: Result Comment: Perf ormed at: -Y [facility] [address] [place] [id number] [id number] MDPhD Chenn Anjen Performed By: #### 1 [id number] #### [facility] [address] [place] [address] Flow Markers X 3on 4 Flow Markers X 3 Performed Invalid Interpretation Code [facility] Comment on above: Result Comment: Perf ormed at: -Y [facility] [address] [place] [id number] [id number] MDPhD Chenn Anjen Performed By: #### 1 [id number] #### [facility] [address] [place] [address] Flow Markers X 5on 4 Flow Markers X 5 Performed Invalid Interpretation Code [facility] Comment on above: Result Comment: Perf ormed at: -Y [facility] [address] [facility] [place], [place] [phone] [facility] Sherrie Terrazas Performed By: #### 1 [id number] #### [facility] [address] [place] [address] Free K+L Lt Chains,Qn,Son Immunoglobulin light chains.kappa.free (S) [Mass/Vol] 18.6 mg/L Invalid Interpretation Code 3.3-19.4 [facility] Comment on above: Performed By: #### 2 [id number] #### [facility] [address] [place] [address] Immunoglobulin light chains.kappa.free/I mmunoglobulin light chains.lambda.free (S) [Mass ratio] 1.10 Invalid Interpretation Code 0.26-1.65 [facility] Comment on above: Result Comment: [facility]med [facility]: [facility] [place], [place] [id number] [phone] PhD Mellissa Deleon Performed By: #### 2 [id number] #### [facility] [address] [place] [address] Immunoglobulin light chains.lambda.free [Mass/Vol] 16.9 mg/L Invalid Interpretation Code 5.7-26.3 [facility] Comment on above: Performed By: #### 2 [id number] #### [facility] [address] [place] [address] HCV Antibody RFX to Quant PC Marck 10-01-2024 HCV IgG IA Ql Non-Reactive Invalid Interpretation Code Non Reactive [facility] Comment on above: Result Comment: Perf ormed at: [email or web address] [address] [place], [place] [id number] [phone] PhD Mellissa Deleon Performed By: #### 2 [id number] #### [facility] [address] [place] [address] HIV Screen 4th Generation wR fxon 10-01-2024 HIV 1+2 Ab+HIV1 p24 Ag IA Ql Non-Reactive Invalid Interpretation Code Non Reactive [facility] Comment on above: Result Comment: HIV- 1/HIV-2 antibodies and HIV-1 p24 antigen were NOT detected. There is no laboratory evidence of HIV infection. HIV Negative Performed at: [address] [id number] [phone] PhD Mellissa Deleon Performed By: #### 9 [id number] #### [facility] [address] [place] [address] Hep A IgMon 10-01-2024 HAV IgM IA Ql Negative Invalid Interpretation Code Negative [facility] Comment on above: Result Comment: A ne gative anti-HAV IgM result suggests no recent or current HAV infection. Performed at: [address] [phone] PhD Mellissa Deleon Performed By: #### 2 [id number] #### [facility] [address] [place] [address] Hep B Core Ab, IgMon 024 HBV core IgM IA Ql Negative Invalid Interpretation Code Negative [facility] Comment on above: Result Comment: Perf ormed at: [address] [id number] [id number] PhD Mellissa Deleon Performed By: #### 2 [id number] #### [facility] [address] [place] [address] Hep Bs Abon 10-01-2024 HBV surface Ab Ql (S) Non-Reactive Invalid Interpretation Code [facility] Comment on above: Result Comment: Non Reactive: Not immune to HBV infection. Equivocal: Unable to determine if anti-HBs is present at levels consistent with immunity. Reactive: Anti-HBs concentration detected at greater than 10 mIU/mL. Individual is considered to be immune to infection with HBV. Performed at: [address] [phone] PhD Mellissa Deleon Performed By: #### 2 [id number] #### [facility] [address] [place] [address] Hep Bs Agon 10-01-2024 HBV surface Ag IA Ql Negative Invalid Interpretation Code Negative [facility] Comment on above: Result Comment: Perf ormed at: CB [facility] [place] [address] [place], [place] [id number] [id number] PhD Mellissa Deleon Performed By: #### 2 [id number] #### [facility] [address] [place] [address] DONA and PE, Serumon 10-01-20 24 Albumin [Mass/Vol] 4.2 g/dL Invalid Interpretation Code 2.9-4.4 [facility] Comment on above: Performed By: #### 1 [id number] #### [facility] [address] [place] [address] Albumin/Globulin [Mass ratio] 1.3 {ratio} Invalid Interpretation Code 0.7-1.7 [facility] Comment on above: Performed By: #### 1 [id number] #### [facility] [address] [place] [address] Alpha 1 globulin Elph [Mass/Vol] 0.3 g/dL Invalid Interpretation Code 0.0-0.4 [facility] Comment on above: Performed By: #### 1 [id number] #### [facility] [address] [place] [address] Alpha 2 globulin Elph [Mass/Vol] 1.0 g/dL Invalid Interpretation Code 0.4-1.0 [facility] Comment on above: Performed By: #### 1 [id number] #### [facility] [address] [place] [address] Beta globulin Elph [Mass/Vol] 1.3 g/dL Invalid Interpretation Code 0.7-1.3 [facility] Comment on above: Performed By: #### 1 [id number] #### [facility] [address] [place] [address] Gamma globulin Elph [Mass/Vol] 0.8 g/dL Invalid Interpretation Code 0.4-1.8 [facility] Comment on above: Performed By: #### 1 [id number] #### [facility] [address] [place] [address] Globulin (S) [Mass/Vol] 3.3 g/dL Invalid Interpretation Code 2.2-3.9 [facility] Comment on above: Performed By: #### 1 [id number] #### [facility] [address] [place] [address] IgA [Mass/Vol] 245 mg/dL Invalid Interpretation Code 61-437 [facility] Comment on above: Performed By: #### 1 [id number] #### [facility] [address] [place] [address] IgG [Mass/Vol] 912 mg/dL Invalid Interpretation Code 603-8613 [facility] Comment on above: Performed By: #### 1 [id number] #### [facility] [address] [place] [address] IgM [Mass/Vol] 67 mg/dL Invalid Interpretation Code 15-143 [facility] Comment on above: Performed By: #### 1 [id number] #### [facility] [address] [place] [address] Interpretation IEP [Interp] Comment Invalid Interpretation Code [facility] Comment on above: Result Comment: No m onoclonality detected. Performed By: #### 1 [id number] #### [facility] [address] [place] [address] Laboratory comment Sundeep (Report) Comment Invalid Interpretation Code [facility] Comment on above: Result Comment: Prot ein electrophoresis scan will follow via computer, mail, or bass singer delivery. Performed at: [address] [phone] PhD Mellissa Deleon Performed By: #### 1 [id number] #### [facility] [address] [place] [address] Protein [Mass/Vol] 7.5 g/dL Invalid Interpretation Code 6.0-8.5 [facility] Comment on above: Performed By: #### 1 [id number] #### [facility] [address] [place] [address] Protein.monoclonal Elph [Mass/Vol] Not Observed Invalid Interpretation Code Not Observed [facility] Comment on above: Performed By: #### 1 [id number] #### [facility] [address] [place] [address] IgE, Quanton 10-01-2024 IgE Qn 118 International_Unit/mL Invali d Interpretation Code 6-495 [facility] Comment on above: Order Comment: Added by Discern Expert Result Comment: Perf ormed at: [facility] [id number] [id number] MD Nestor Sharp Performed By: #### 1 [id number] #### [facility] [address] [place] [address] Lead, Adulton 10-01-2024 Lead (BldV) [Mass/Vol] 1.8 microgram/dL Invalid Interpretation Code 0.0-3.4 [facility] Comment on above: Result Comment: Test ing performed by Inductively coupled plasma/Mass Spectrometry. Analysis by inductively coupled plasma/mass spectrometry (ICP/MS) This test was developed and its performance characteristics determined by [facility]. It has not been cleared or approved by the Food and Drug Administration. Environmental Exposure: WHO Recommendation <5.0 Occupational Exposure: OSHA Lead Std 40.0 CADY 30.0 Detection Limit = 1.0 Performed at: [facility] [address] [phone] PhD Mellissa Deleon Performed By: #### 1 [id number] #### [facility] [address] [place] [address] RF Quanton 10-01-2024 Rheumatoid factor Qn [IU]/mL Invalid Interpretation Code <14.0 [facility] Comment on above: Result Comment: Perf ormed at: [facility] [address] [phone] PhD Mellissa Deleon Performed By: #### 1 [id number] #### [facility] [address] [place] [address] Lab Miscellaneous-LCon 09-29 Lab Miscellaneous COMMENT Invalid Interpretation Code [facility] Comment on above: Order Comment: 24 ho ur urine Total Volume of 2,900ml information also documented on the cup 09/25/2024 11:37:38 EST [id number] Result Comment: Test Ordered: [id number] DONA+Protein Electro, 24-Hr Ur Protein,Total,Urine 5.0 mg/dL CB Reference Range: Not Estab. Prot,24hr calculated 145 mg/24 hr CB Reference Range: 30-150 Albumin, U 21.6 % CB Xslez-5-Evihbbat, U 4.6 % CB Cuzlk-3-Xprgydop, U 9.0 % CB Beta Globulin, U 21.5 % CB Gamma Globulin, U 43.3 % CB M-Nader, % Note: % CB Not Observed Reference Range: Not Observed Immunofixation Result, Urine Comment CB No monoclonality detected. Note: Comment CB Protein electrophoresis scan will follow via computer, mail, or bass singer delivery. Performed at: [facility] [address] [id number] [phone] PhD Mellissa Deleon Performed By: #### 1 [id number] #### [facility] [address] [id number] Order Comment: 25 ho ur urine with a total volulme of 2,900ml. Information is also documented on the cup. 09/25/2024 11:38:20 EST [id number] Result Comment: Test Ordered: [id number] Protein Electro, 24-Hour Urine Protein,Total,Urine 5.8 mg/dL CB Reference Range: Not Estab. Prot,24hr calculated 168 [H ] mg/24 hr CB Reference Range: 30-150 Albumin, U 36.4 % CB Owklk-8-Izcfcxqb, U 2.7 % CB Nlbpg-2-Vxtyggmg, U 23.2 % CB Beta Globulin, U 22.7 % CB Gamma Globulin, U 15.0 % CB M-Nader, % Note: % CB Not Observed Reference Range: Not Observed Please note: Comment CB Protein electrophoresis scan will follow via computer, mail, or bass singer delivery. Performed at: [facility] [address] [phone] [id number] Mellsisa Deleon Lab Miscellaneous-LCon 09-25 Test Code [id number] Invalid Interpretation Code [facility] Comment on above: Order Comment: 24 ho ur urine Total Volume of 2,900ml information also documented on the cup 09/25/2024 11:37:38 EST [id number] Performed By: #### 1 [id number] #### [facility] [address] [place] [address] Test Code 571763 Invalid Interpretation Code [facility] Comment on above: Order Comment: 25 ho ur urine with a total volulme of 2,900ml. Information is also documented on the cup. 09/25/2024 11:38:20 EST [id number] Performed By: #### 1 [id number] #### [facility] [address] [place] [address] Lab Miscellaneous-LCOrdered By: Ellie Bell on 09-25-2024 Test Name 24 Urine - DONA Invalid Interpretation Code [facility] Comment on above: Order Comment: 24 ho ur urine Total Volume of 2,900ml information also documented on the cup 09/25/2024 11:37:38 EST [id number] Performed By: #### 1 [id number] #### [facility] [address] [place] [address] Test Name 24 urine UPEP Invalid Interpretation Code [facility] Comment on above: Order Comment: 25 ho ur urine with a total volulme of 2,900ml. Information is also documented on the cup. 09/25/2024 11:38:20 EST [id number] Performed By: #### 1 [id number] #### [facility] [address] [place], [place] [id number] Reference Laboratory Testing Ordered By: Ellie Bell on 09-25-2024 Test Code [id number] 1 Invalid Interpretation Code [facility]Out[facility] Test Code [id number] [id number] Invalid Interpretation Code [facility] CBC w/ Auto Diffon 4 Basophils/100 WBC (Bld) 1.0 % Normal 0.0-2.0 [facility] Comment on above: Performed By: #### 2 [id number] #### [facility] [address] [place] [address] Basophils/Leukocyte s Auto (Bld) [Pure # fraction] 0.1 E9/L Normal 0.0-0.2 [facility] Comment on above: Performed By: #### 2 [id number] #### [facility] [address] [place] [address] Eosinophils (Bld) [#/Vol] 0.1 E9/L Normal 0.0-0.5 [facility] Comment on above: Performed By: #### 2 [id number] #### [facility] [address] [place] [address]1271 Eosinophils/100 WBC (Bld) 2.4 % Normal 0.0-8.0 [facility] Comment on above: Performed By: #### 2 [id number] #### [facility] [address] [place] [address] Erythrocyte distribution width (RBC) [Ratio] 13.7 % Normal 10.9-14.2 [facility] Comment on above: Performed By: #### 2 [id number] #### [facility] [address] [place] [address]79[address] Hematocrit (Bld) [Volume fraction] 46.8 % Normal 37.7-49.0 [facility] Comment on above: Performed By: #### 2 [id number] #### [facility] [address] [place] [address] Hemoglobin (Bld) [Mass/Vol] 16.2 g/dL Normal 13.5-17.5 [facility] Comment on above: Performed By: #### 2 [id number] #### [facility] [address] [place] [address]69[address] Lymphocytes (Bld) [#/Vol] 1.2 E9/L Normal 1.0-4.0 [facility] Comment on above: Performed By: #### 2 [id number] #### [facility] [address] [place] [address] Lymphocytes/100 WBC (Bld) 20.0 % Normal 14.0-50.0 [facility] Comment on above: Performed By: #### 2 [id number] #### [facility] [address] [place] [address] MCH (RBC) [Entitic mass] 32.4 pg Normal 27.0-34.0 [facility] Comment on above: Performed By: #### 2 [id number] #### [facility] [address] [place] [address] MCHC (RBC) [Mass/Vol] 34.6 g/dL Normal 31.4-36.0 [facility] Comment on above: Performed By: #### 2 [id number] #### [facility] [address] [place] [address] MCV (RBC) [Entitic vol] 93.5 fL Normal 80.0-100.0 [facility] Comment on above: Performed By: #### 2 [id number] #### [facility] [address] [place] [address]200 Monocytes (Bld) [#/Vol] 0.6 E9/L Normal 0.2-1.0 [facility] Comment on above: Performed By: #### 2 [id number] #### [facility] [address] [place] [address] 6[address]24 Neutrophils (Bld) [#/Vol] 4.0 E9/L Normal 2.0-7.5 [facility] Comment on above: Performed By: #### 2 [id number] #### [facility] [address] [place] [address] Neutrophils/100 WBC (Bld) 66.3 % Normal 36.0-75.0 [facility] Comment on above: Performed By: #### 2 [id number] #### [facility] [address] [place] [address] Platelet 259.0 E9/L Normal 150.0-500.0 [facility] Comment on above: Performed By: #### 2 [id number] #### [facility] [address] [place] [address] Platelet mean volume (Bld) [Entitic vol] 8.5 fL Normal 6.4-10.8 [facility] Comment on above: Performed By: #### 2 [id number] #### [facility] [address] [place] [address] RBC (Bld) [#/Vol] 5.0 E12/L Normal 4.3-5.9 [facility] Comment on above: Performed By: #### 2 [id number] #### [facility] [address] [place] [address] WBC corrected for nucl RBC Auto (Bld) [#/Vol] 6.0 E9/L Normal 4.0-11.0 [facility] Comment on above: Performed By: #### 2 [id number] #### [facility] [address] [place] [address] CEAon 09-22-2024 CEA 5.1 ng/mL Invalid Interpretation Code [facility] Comment on above: Result Comment: 'NON -SMOKER < 2.5' 'SMOKER < 5.0' The concentration of CEA in a given specimen determined by different manufacturers can vary due to differences in assay methods and reagent specificity. Values obtained with different assay methods cannot be used interchangeably. The methodology used to perform this test was chemiluminescence using [employer]'s Access CEA reagent. Performed By: #### 2 [id number] #### [facility] [address] [place] [address] CHEMISTRYOrdered By: SYSTEM SYSTEM on 09-22-2024 Albumin [Mass/Vol] 4.8 g/dL Normal 3.3 - 5.0 gm/dL [facility] Albumin/Globulin [Mass ratio] 1.7 {ratio} Normal 1.1 - 2.2 [facility] ALP [Catalytic activity/Vol] 106 [iU]/d High 21 - 98 Int._Unit/L [facility] ALT No additional P-5'-P [Catalytic activity/Vol] 24 [iU]/d Normal 6 - 46 Int._Unit/L [facility] Anion gap [Moles/Vol] 13 mmol/L Normal 6 - 16 mEq/L [facility] AST [Catalytic activity/Vol] 14 [iU]/d Normal 5 - 43 Int._Unit/L [facility] Bilirubin [Mass/Vol] 0.7 mg/dL Normal 0.0 - 1.1 mg/dL [facility] Calcium [Mass/Vol] 10.0 mg/dL Normal 8.9 - 11. 1 mg/dL [facility] CEA 5.1 ng/mL Invalid Interpretation Code [facility] Comment on above: Result Comment: 'NON -SMOKER < 2.5' 'SMOKER < 5.0' Interpretive Data: T he concentration of CEA in a given specimen determined by different manufacturers can vary due to differences in assay methods and reagent specificity. Values obtained with different assay methods cannot be used interchangeably. The methodology used to perform this test was chemiluminescence using [employer]'s Access CEA reagent. Chloride [Moles/Vol] 101 mmol/L Normal 101 - 111 mmol/L [facility] CO2 [Moles/Vol] 27 mmol/L Normal 21 - 31 mmol/L [facility] Creatinine [Mass/Vol] 1.4 mg/dL High 0.5 - 1.3 mg/dL [facility] CRP [Mass/Vol] mg/dL Normal <=1.9mg/dL [facility] eGFR 53 mL/min/1.73 m2 Low >=59mL/min / 1.73 m2 [facility] Globulin (S) [Mass/Vol] 2.8 g/dL Normal 1.4 - 4.0 gm/dL [facility] Glucose [Mass/Vol] 200 mg/dL High 55 - 199 mg/dL [facility] LDH 183 [iU]/d Normal 93 - 218 Int._Unit/L [facility] Magnesium [Mass/Vol] 2.2 mg/dL Normal 1.3 - 2.4 mg/dL [facility] Potassium [Moles/Vol] 4.3 mmol/L Normal 3.5 - 5.3 mmol/L [facility] Prostate specific Ag [Mass/Vol] 0.8 ng/mL Normal 0.1 - 3.5 ng/mL [facility] Comment on above: Interpretive Data: T he concentration of PSA determined by different manufacturers can vary due to differences in assay methods and reagent specificity. Values obtained from different assay methods cannot be used interchangeably. The methodology used for this result was chemiluminescence using [employer]'s Access Hybritech PSA reagent. Protein [Mass/Vol] 7.6 g/dL Normal 6.0 - 7.8 gm/dL [facility] Sodium [Moles/Vol] 137 mmol/L Normal 135 - 145 mmol/L [facility] Urate [Mass/Vol] 5.1 mg/dL Normal 2.2 - 7.4 mg/dL [facility] Urea nitrogen [Mass/Vol] 20 mg/dL Normal 5 - 21 mg/dL [facility] Urea nitrogen/Creatinine [Mass ratio] 14 mg/mg Normal 10 - 20 [facility] CMPon 09-22-2024 Albumin [Mass/Vol] 4.8 g/dL Normal 3.3-5.0 [facility] Comment on above: Performed By: #### 2 [id number] #### [facility] [address] [place] [address] Albumin/Globulin (S) [Mass conc ratio] 1.7 Normal 1.1-2.2 [facility] Comment on above: Performed By: #### 2 [id number] #### [facility] [address] [place] [address] ALP [Catalytic activity/Vol] 106 Int._Unit/L High [facility] Comment on above: Performed By: #### 2 [id number] #### [facility] [address] [place] [address] ALT No additional P-5'-P [Catalytic activity/Vol] 24 Int._Unit/L Normal -46 [facility] Comment on above: Performed By: #### 2 [id number] #### [facility] [address] [place] [address] Anion gap [Moles/Vol] 13 mmol/L Normal 6-16 [facility] Comment on above: Performed By: #### 2 [id number] #### [facility] [address] [place] [address] AST [Catalytic activity/Vol] 14 Int._Unit/L Normal -43 [facility] Comment on above: Performed By: #### 2 [id number] #### [facility] [address] [place] [address] Bilirubin [Mass/Vol] 0.7 mg/dL Normal 0.0-1.1 [facility] Comment on above: Performed By: #### 2 [id number] #### [facility] [address] [place] [address] Calcium [Mass/Vol] 10.0 mg/dL Normal 8.9-11.1 [facility] Comment on above: Performed By: #### 2 [id number] #### [facility] [address] [place] [address] Chloride [Moles/Vol] 101 mmol/L Normal 101-111 [facility] Comment on above: Performed By: #### 2 [id number] #### [facility] [address] [place] [address] CO2 [Moles/Vol] 27 mmol/L Normal 21-31 [facility] Comment on above: Performed By: #### 2 [id number] #### [facility] [address] [place] [address] Creatinine [Mass/Vol] 1.4 mg/dL High 0.5-1.3 [facility] Comment on above: Performed By: #### 2 [id number] #### [facility] [address] [place] [address] Globulin (S) [Mass/Vol] 2.8 g/dL Normal 1.4-4.0 [facility] Comment on above: Performed By: #### 2 [id number] #### [facility] [address] [place] [address] Glucose [Mass/Vol] 200 mg/dL High 55-199 [facility] Comment on above: Performed By: #### 2 [id number] #### [facility] [address] [place] [address] Potassium [Moles/Vol] 4.3 mmol/L Normal 3.5-5.3 [facility] Comment on above: Performed By: #### 2 [id number] #### [facility] [address] [place] [address] Protein [Mass/Vol] 7.6 g/dL Normal 6.0-7.8 [facility] Comment on above: Performed By: #### 2 [id number] #### [facility] [address] [place] [address] Sodium [Moles/Vol] 137 mmol/L Normal 135-145 [facility] Comment on above: Performed By: #### 2 [id number] #### [facility] [address] [place] [address] Urea nitrogen [Mass/Vol] 20 mg/dL Normal 5-21 [facility] Comment on above: Performed By: #### 2 [id number] #### [facility] [address] [place] [address] Urea nitrogen/Creatinine [Mass ratio] 14 No Units Normal 10-20 [facility] Comment on above: Performed By: #### 2 [id number] #### [facility] [address] [place] [address] CRPon 09-22-2024 CRP [Mass/Vol] mg/L Normal <=1.9 [facility] Comment on above: Performed By: #### 2 [id number] #### [facility] [address] [place] [address] HEMATOLOGYOrdered By: SYSTEM SYSTEM on 09-22-2024 Basophils/100 WBC (Bld) 1.0 % Normal 0.0 - 2.0 % [facility] Basophils/Leukocyte s Auto (Bld) [Pure # fraction] 0.1 E9/L Normal 0.0 - 0.2 E9/L [facility] Eosinophils (Bld) [#/Vol] 0.1 E9/L Normal 0.0 - 0.5 E9/L [facility] Eosinophils/100 WBC (Bld) 2.4 % Normal 0.0 - 8.0 % [facility] Erythrocyte distribution width (RBC) [Ratio] 13.7 % Normal 10.9 - 14.2 % [facility] Hematocrit (Bld) [Volume fraction] 46.8 % Normal 37.7 - 49.0 % [facility] Hemoglobin (Bld) [Mass/Vol] 16.2 g/dL Normal 13.5 - 17.5 gm/dL [facility] Lymphocytes (Bld) [#/Vol] 1.2 E9/L Normal 1.0 - 4.0 E9/L [facility] Lymphocytes/100 WBC (Bld) 20.0 % Normal 14.0 - 50.0 % [facility] MCH (RBC) [Entitic mass] 32.4 pg Normal 27.0 - 34.0 pg [facility] MCHC (RBC) [Mass/Vol] 34.6 g/dL Normal 31.4 - 36.0 gm/dL [facility] MCV (RBC) [Entitic vol] 93.5 fL Normal 80.0 - 100.0 fL [facility] Monocytes (Bld) [#/Vol] 0.6 E9/L Normal 0.2 - 1.0 E9/L [facility] Monocytes/100 WBC (Bld) 10.3 % Normal 4.0 - 14.0 % [facility] Neutrophils (Bld) [#/Vol] 4.0 E9/L Normal 2.0 - 7.5 E9/L [facility] Neutrophils/100 WBC (Bld) 66.3 % Normal 36.0 - 75.0 % [facility] Platelet 259.0 E9/L Normal 150.0 - 500.0 E9/L [facility] Platelet mean volume (Bld) [Entitic vol] 8.5 fL Normal 6.4 - 10.8 fL [facility] RBC (Bld) [#/Vol] 5.0 E12/L Normal 4.3 - 5.9 E12/L [facility] WBC corrected for nucl RBC Auto (Bld) [#/Vol] 6.0 E9/L Normal 4.0 - 11.0 E9/L [facility] LDHon 09-22-2024 LDH 183 Int._Unit/L Normal 93-218 [facility] Comment on above: Performed By: #### 2 [id number] #### [facility] [address] [place] [address] Lead, Adulton 09-22-2024 Blood Lead Purpose I Initial Normal [facility] Comment on above: Performed By: #### 1 [id number] #### [facility] [address] [place] [address] Is Patient ? 2 No Normal [facility] Comment on above: Performed By: #### 1 [id number] #### [facility] [address] [place] [address] Magnesiumon 09-22-2024 Magnesium [Mass/Vol] 2.2 mg/dL Normal 1.3-2.4 [facility] Comment on above: Performed By: #### 2 [id number] #### [facility] [address] [place] [address] PSA Totalon 09-22-2024 Prostate specific Ag [Mass/Vol] 0.8 ng/mL Normal 0.1-3.5 [facility] Comment on above: Result Comment: The concentration of PSA determined by different manufacturers can vary due to differences in assay methods and reagent specificity. Values obtained from different assay methods cannot be used interchangeably. The methodology used for this result was chemiluminescence using [employer]'s Access Hybritech PSA reagent. Performed By: #### 1 [id number] #### [facility] [address] [place] [address] Uric Acidon 09-22-2024 Urate [Mass/Vol] 5.1 mg/dL Normal 2.2-7.4 [facility] Comment on above: Performed By: #### 2 [id number] #### [facility] [address] [place] [address] eGFRon 09-22-2024 eGFR 53 mL/min/1.73 m2 Low >=59 [facility] Comment on above: Performed By: #### 1 [id number] #### [facility] [address] [place] [address] Laboratory - Hematology and Cell countson 08-07-2024 HbA1c (Bld) [Mass fraction] 8.9 % [facility] No Panel Informationon 08-07 [facility] ALL BASIC METABOLIC PANELon 07-31-2024 Anion gap [Moles/Vol] 9.8 mmol/L [facility] Calcium [Mass/Vol] 9.6 mg/dL 8.5 - 10. 1 mg/dL [facility] Chloride [Moles/Vol] 99 mmol/L 98 - 107 mmol/L [facility] CO2 [Moles/Vol] 27.9 mmol/L 21.0 - 32.0 mmol/L [facility] Creatinine [Mass/Vol] 1.39 mg/dL High 0.70 - 1.30 mg/dL [facility] GFR/1.73 sq M.predicted CKD-EPI (S/P/Bld) [Vol rate/Area] >60 60 - PINF [facility] Glucose [Mass/Vol] 349 mg/dL High 74 - 106 mg/dL [facility] Interpretation and review of laboratory results Abnormal [facility] Potassium [Moles/Vol] 4.7 mmol/L 3.5 - 5.1 mmol/L [facility] Sodium [Moles/Vol] 132 mmol/L Low 136 - 145 mmol/L [facility] TBH EGFR-NON AF HAITIAN 50 Low 60 - PINF [facility] Urea nitrogen [Mass/Vol] 23.0 mg/dL High 7.0 - 18.0 mg/dL [facility] Urea nitrogen/Creatinine [Mass ratio] 16.5 mg/mg [facility] ALL BASIC METABOLIC PANELon 07-02-2024 Anion gap [Moles/Vol] 17.0 mmol/L [facility] Calcium [Mass/Vol] 9.3 mg/dL 8.5 - 10. 1 mg/dL [facility] Chloride [Moles/Vol] 102 mmol/L 98 - 107 mmol/L [facility] CO2 [Moles/Vol] 23.5 mmol/L 21.0 - 32.0 mmol/L [facility] Creatinine [Mass/Vol] 1.54 mg/dL High 0.70 - 1.30 mg/dL [facility] GFR/1.73 sq M.predicted CKD-EPI (S/P/Bld) [Vol rate/Area] 54 Low 60 - PINF [facility] Glucose [Mass/Vol] 337 mg/dL High 74 - 106 mg/dL [facility] Interpretation and review of laboratory results Abnormal [facility] Potassium [Moles/Vol] 4.5 mmol/L 3.5 - 5.1 mmol/L [facility] Sodium [Moles/Vol] 138 mmol/L 136 - 145 mmol/L [facility] TBH EGFR-NON AF HAITIAN 45 Low 60 - PINF [facility] Urea nitrogen [Mass/Vol] 25.0 mg/dL High 7.0 - 18.0 mg/dL [facility] Urea nitrogen/Creatinine [Mass ratio] 16.2 mg/mg [facility] US ABD AORTA DIAGNOSTICon US ABD [...] by: MODE GARAY Date: 2022-12-27 15:45 Normal [facility] US ABD AORTA DIAGNOSTICon US ABD [...] LUIS MANUEL MCCORMICK Date: 2022-01-16 07:21 Normal [facility] Vital Signs Date Time Vital Sign Value Performing Clinician Facility 07-27-2025 10: Body height 180.3 cm Antony Zamarripa MD Work Phone: [facility] 07-27-2025 10: Body mass index (BMI) [Ratio] 32.5 kg/m2 Antony Zamarripa MD Work Phone: [facility] 07-27-2025 10:26-0400 Body weight 105.69 kg Antony Zamarripa MD Work Phone: [facility] 07-27-2025 10:26-0400 Diastolic blood pressure 68 mm[Hg] Antony Zamarripa MD Work Phone: [facility] 07-27-2025 10:26-0400 Heart rate 69 /min Antony Zamarripa MD Work Phone: [facility] 07-27-2025 10:26-0400 SaO2% (BldA) [Mass fraction] 96 % Antony Zamarripa MD Work Phone: [facility] 07-27-2025 10:26-0400 Systolic blood pressure 126 mm[Hg] Antony Zamarripa MD Work Phone: [facility] 11-12-2024 10:15-0500 Body height 180.3 cm Antony Zamarripa MD Work Phone: [facility] 11-12-2024 10:15-0500 Body mass index (BMI) [Ratio] 33.47 kg/m2 Antony Zamarripa MD Work Phone: [facility] 11-12-2024 10:15-0500 Body weight 108.86 kg Antony Zamarripa MD Work Phone: [facility] 11-12-2024 10:15-0500 Diastolic blood pressure 84 mm[Hg] Antony Zamarripa MD Work Phone: [facility] 11-12-2024 10:15-0500 Heart rate 82 /min Antony Zamarripa MD Work Phone: [facility] 11-12-2024 10:15-0500 SaO2% (BldA) [Mass fraction] 96 % Antony Zamarripa MD Work Phone: [facility] 11-12-2024 10:15-0500 Systolic blood pressure 136 mm[Hg] Antony Zamarripa MD Work Phone: [facility] 11-11-2024 16:01-0500 Body height 182.9 cm Bennie Perdomo DO Work Phone: [facility] 11-11-2024 16:01-0500 Body mass index (BMI) [Ratio] 33.12 kg/m2 Bennie Leanne DO Work Phone: [facility] 11-11-2024 16:01-0500 Body weight 110.77 kg Bennie Leanne DO Work Phone: [facility] 11-11-2024 16:01-0500 Diastolic blood pressure 90 mm[Hg] Bennie Leanne DO Work Phone: [facility] 11-11-2024 16:01-0500 Heart rate 74 /min Bennie Leanne DO Work Phone: [facility] 11-11-2024 16:01-0500 SaO2% (BldA) [Mass fraction] 96 % Bennie Leanne DO Work Phone: [facility] 11-11-2024 16:01-0500 Systolic blood pressure 148 mm[Hg] Bennie Leanne DO Work Phone: [facility] 10-13-2024 11:40-0500 Body temperature 98.06 [degF] [facility] 10-13-2024 11:40-0500 Diastolic blood pressure 83 mm[Hg] [facility] 10-13-2024 11:40-0500 Heart rate 83 /min [facility] 10-13-2024 11:40-0500 Mean blood pressure 99 mm[Hg] [facility] 10-13-2024 11:40-0500 Respiratory rate 16 /min [facility] 10-13-2024 11:40-0500 SaO2% (BldA) [Mass fraction] 96 % [facility] 10-13-2024 11:40-0500 Systolic blood pressure 131 mm[Hg] [facility] 09-22-2024 13:37-0500 Body temperature 97.52 [degF] [facility] 09-22-2024 13:37-0500 Diastolic blood pressure 89 mm[Hg] [facility] 09-22-2024 13:37-0500 Heart rate 70 /min [facility] 09-22-2024 13:37-0500 Mean blood pressure 110 mm[Hg] [facility] 09-22-2024 13:37-0500 Respiratory rate 18 /min [facility] 09-22-2024 13:37-0500 SaO2% (BldA) [Mass fraction] 97 % [facility] 09-22-2024 13:37-0500 Systolic blood pressure 151 mm[Hg] [facility] 09-16-2024 16:13-0500 Body height 180.3 cm Bennie Leanne DO Work Phone: [facility] 09-16-2024 16:13-0500 Body mass index (BMI) [Ratio] 33.31 kg/m2 Bennie Leanne DO Work Phone: [facility] 09-16-2024 16:13-0500 Body weight 108.32 kg Bennie Leanne DO Work Phone: [facility] 09-16-2024 16:13-0500 Diastolic blood pressure 86 mm[Hg] Bennie Leanne DO Work Phone: [facility] 09-16-2024 16:13-0500 Heart rate 65 /min Bennie Leanne DO Work Phone: [facility] 09-16-2024 16:13-0500 SaO2% (BldA) [Mass fraction] 95 % Bennie Leanne DO Work Phone: [facility] 09-16-2024 16:13-0500 Systolic blood pressure 138 mm[Hg] Bennie Leanne DO Work Phone: [facility] 09-11-2024 10:52-0500 Body height 180.3 cm Antony Zamarripa MD Work Phone: [facility] 09-11-2024 10:52-0500 Body mass index (BMI) [Ratio] 33.33 kg/m2 Antony Zamarripa MD Work Phone: [facility] 09-11-2024 10:52-0500 Body weight 108.41 kg Antony Zamarripa MD Work Phone: [facility] 09-11-2024 10:52-0500 Diastolic blood pressure 82 mm[Hg] Antony Zamarripa MD Work Phone: [facility] 09-11-2024 10:52-0500 Heart rate 79 /min Antony Zamarripa MD Work Phone: [facility] 09-11-2024 10:52-0500 SaO2% (BldA) [Mass fraction] 97 % Antony Zamarripa MD Work Phone: [facility] 09-11-2024 10:52-0500 Systolic blood pressure 128 mm[Hg] Antony Zamarripa MD Work Phone: [facility] 08-07-2024 11:20-0400 Body height 180.3 cm Antony Zamarripa MD Work Phone: [facility] 08-07-2024 11:20-0400 Body mass index (BMI) [Ratio] 33.61 kg/m2 Antony Zamarripa MD Work Phone: [facility] 08-07-2024 11:20-0400 Body weight 109.32 kg Antony Zamarripa MD Work Phone: [facility] 08-07-2024 11:20-0400 Diastolic blood pressure 76 mm[Hg] Antony Zamarripa MD Work Phone: [facility] 08-07-2024 11:20-0400 Heart rate 65 /min Antony Zamarripa MD Work Phone: [facility] 08-07-2024 11:20-0400 SaO2% (BldA) [Mass fraction] 94 % Antony Zamarripa MD Work Phone: [facility] 08-07-2024 11:20-0400 Systolic blood pressure 134 mm[Hg] Antony Zamarripa MD Work Phone: [facility] 07-28-2024 15:39-0400 Diastolic blood pressure 80 mm[Hg] Bennie Leanne DO Work Phone: [facility] 07-28-2024 15:39-0400 Systolic blood pressure 142 mm[Hg] Bennie Leanne DO Work Phone: [facility] Encounters Encounter Date Encounter Type Care Provider Facility Start: 08-07-2025 End: 08-07-2025 ambulatory [facility] Start: 07-27-2025 End: 07-27-2025 Bamboo flowsheet Antony Zamarripa MD [facility] Start: 07-27-2025 End: 07-27-2025 Bamboo flowsheet Antony Zamarripa MD [facility] Phone: [facility] Start: 07-27-2025 End: 07-27-2025 Assay of hemosiderin, quant Antony Zamarripa MD Work Phone: [facility] Start: 07-27-2025 End: 07-27-2025 Patient encounter procedure Antony Zamarripa MD Work Phone: [facility] Comment on above: Routine general medi brent examination at health care facility (Primary Dx); ACP (advance care planning); Encounter for immunization; Type 2 diabetes mellitus with diabetic neuropathy, without long-term current use of insulin (HCC); Paroxysmal atrial fibrillation (HCC); Mixed hyperlipidemia ; Primary hypertension ; 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); Diastolic dysfunction; Benign essential hypertension ; Prostate cancer screening; Degeneration of intervertebral disc of lumbar region with discogenic back pain and lower extremity pain; Memory loss Start: 07-27-2025 End: 07-27-2025 ambulatory ANTONY ZAMARRIPA Not Available Start: 05-18-2025 End: 05-18-2025 Clinisync Result Encounter Generic External Data Provider [facility] External Department Unsolicited Start: 05-18-2025 End: 05-18-2025 Clinisync Result Encounter Generic External Data Provider [facility] External Department Unsolicited Start: 11-17-2024 End: 11-17-2024 ambulatory [facility] Start: 11-12-2024 End: 11-12-2024 Office outpatient visit 25 minutes Antony Zamarripa MD Work Phone: [facility] Comment on above: Type 2 diabetes kristina itus with hyperglycemia, without long-term current use of insulin (CMS/HCC); Lslgy-6-unbpdgqcbal deficiency (CMS/HCC); Other emphysema (CMS/HCC); Parkinsonism, unspecified (CMS/HCC); Type 2 diabetes mellitus with diabetic chronic kidney disease (CMS/HCC); Chronic kidney disease, stage 3a (HCC) (CMS/HCC); Paroxysmal atrial fibrillation (CMS/HCC); Type 2 diabetes mellitus with diabetic neuropathy, unspecified (CMS/HCC) Start: 11-12-2024 End: 11-12-2024 ambulatory ANTONY ZAMARRIPA Not Available Start: 11-11-2024 End: 11-11-2024 Office outpatient visit 25 minutes Bennie Perdomo DO Work Phone: [facility] Comment on above: Tremor (Primary Dx); Left foot drop; Memory loss; Numbness and tingling; B12 deficiency; Folic acid deficiency; JESS (obstructive sleep apnea) Start: 11-11-2024 End: 11-11-2024 ambulatory BENNIE PERDOOM Not Available Start: 11-11-2024 End: 11-11-2024 Bamboo flowsheet Bennie Perdomo DO Work Phone: [facility] Start: 11-11-2024 End: 11-11-2024 Bamboo flowsheet Bennie Leanne DO Work Phone: [facility] Start: 10-13-2024 End: 10-13-2024 ambulatory Mhd Yaser Al-Marrawi [facility] Start: 10-13-2024 End: 10-13-2024 Patient encounter procedure [facility]hd [facility] Start: 09-25-2024 End: 09-25-2024 ambulatory Mhd Yaser Al-Marrawi Facility[facility] Start: 09-25-2024 End: 09-25-2024 Lab Drop off Mhd Yaser Al-Marrawi [facility] Start: 09-22-2024 End: 09-22-2024 ambulatory Mhd Yaser Al-Marrawi Facility[facility] Start: 09-22-2024 End: 09-22-2024 Patient encounter procedure Mhd Yaser Al-Marrawi [facility] Start: 09-16-2024 End: 09-16-2024 Office outpatient visit 25 minutes Bennie Leanne DO Work Phone: [facility] Comment on above: Left foot drop (Prim melvina Dx); Parkinsonism, unspecified Parkinsonism type (CMS/HCC); Essential tremor; Diabetic peripheral neuropathy associated with type 2 diabetes mellitus (CMS/HCC); B12 deficiency; Numbness and tingling; Memory loss Start: 09-16-2024 End: 09-16-2024 ambulatory BENNIE LEANNE Not Available Start: 09-16-2024 End: 09-16-2024 Bamboo flowsheet Bennie Leanne DO Work Phone: [facility] Start: 09-16-2024 End: 09-16-2024 Bamboo flowsheet Bennie Leanne DO Work Phone: [facility] Start: 09-11-2024 End: 09-11-2024 Office outpatient visit 25 minutes Antony Zamarripa MD Work Phone: [facility] Comment on above: Uncontrolled type 2 diabetes mellitus with hyperglycemia (CMS/HCC) (Primary Dx); Diabetic peripheral neuropathy associated with type 2 diabetes mellitus (CMS/HCC); Pdfik-5-xxzwfbvibwu deficiency (CMS/HCC); Type 2 diabetes mellitus with diabetic chronic kidney disease (CMS/HCC); Chronic kidney disease, stage 3a (HCC) (CMS/HCC); Abdominal aortic aneurysm, without rupture, unspecified (CMS/HCC); Emphysema due to ertcn-2-fgrizrpyhxa deficiency (CMS/HCC) Start: 09-11-2024 End: 09-11-2024 ambulatory ANTONY ZAMARRIPA Not Available Start: 08-21-2024 [facility]ulatory [facility] Start: 08-14-2024 End: 08-14-2024 Refill Yossi Welch MA [facility] [address] Comment on above: Memory loss; Tremor; Parkinsonism, unspecified Parkinsonism type (CMS/HCC); B12 deficiency; Folic acid deficiency Start: 08-07-2024 End: 08-07-2024 Bamboo flowsheet Antony Zamarripa MD Work Phone: [facility] Start: 08-07-2024 End: 08-07-2024 Bamboo flowsheet Antony Zamarripa MD Work Phone: [facility] Start: 08-07-2024 End: 08-07-2024 ambulatory ANTONY ZAMARRIPA Not Available Start: 08-07-2024 End: 08-07-2024 Office outpatient visit 25 minutes Antony Zamarripa MD Work Phone: [facility] Comment on above: Diabetic peripheral neuropathy associated with type 2 diabetes mellitus (CMS/HCC) (Primary Dx); Uncontrolled type 2 diabetes mellitus with hyperglycemia (CMS/HCC); Type 2 diabetes mellitus with hyperglycemia, without long-term current use of insulin (CMS/HCC); Displacement of cervical intervertebral disc; Memory loss; Tremor; Parkinsonism, unspecified Parkinsonism type (CMS/HCC); Mixed hyperlipidemia (CMS/HCC); Primary hypertension (CMS/HCC); LVH (left ventricular hypertrophy); Prostate cancer screening Start: 07-31-2024 End: 07-31-2024 Clinisync Result Encounter Generic External Data Provider [facility] External Department Unsolicited Start: 07-31-2024 End: 07-31-2024 Clinisync Result Encounter Generic External Data Provider [facility] External Department Unsolicited Start: 07-28-2024 End: 07-28-2024 Office outpatient visit 25 minutes Bennie Perdomo DO Work Phone: [facility] [facility] Comment on above: Tremor (Primary Dx); Parkinsonism, unspecified Parkinsonism type (CMS/HCC); Essential tremor; Diabetic peripheral neuropathy associated with type 2 diabetes mellitus (CMS/HCC); Memory loss; Numbness and tingling; Balance disorder Start: 07-28-2024 End: 07-28-2024 ambulatory BENNIE PERDOMO Not Available Start: 07-28-2024 End: 07-28-2024 Bamboo flowsheet Bennie Perdomo DO Work Phone: [facility] Start: 07-28-2024 End: 07-28-2024 Bamboo flowsheet Bennie Perdomo DO Work Phone: [facility] Start: 07-02-2024 End: 07-02-2024 Clinisync Result Encounter Generic External Data Provider [facility] External Department Unsolicited Start: 07-02-2024 End: 07-02-2024 Clinisync Result Encounter Generic External Data Provider [facility] External Department Unsolicited Start: 12-27-2022 End: 12-28-2022 ambulatory BELÉN CORRALES Facility:[facility] Start: 01-14-2022 End: 01-15-2022 ambulatory RAMON BRISENO Facility:[facility] Start: 07-15-2018 End: 07-16-2018 Patient encounter DEFAULT PHYSICIAN Facility:[facility] Start: 06-11-2018 End: 06-12-2018 Patient encounter DEFAULT PHYSICIAN Facility:[facility] Procedures Date Procedure Procedure Detail Performing Clinician Start: 07-27-2025 Hemoglobin glycosyla nicolas a1c Antony Zamarripa MD Work Phone: Start: 05-18-2025 Us abdominal aorta r eal time screen study aaa Generic External Data Provider Start: 11-12-2024 Hemoglobin glycosyla nicolas a1c Antony Zamarripa MD Work Phone: Start: 08-07-2024 Hemoglobin glycosyla nicolas a1c Antony Zamarripa MD Work Phone: Start: 07-31-2024 ALL BASIC METABOLIC PANEL Generic External Data Provider Start: 07-02-2024 ALL BASIC METABOLIC PANEL Generic External Data Provider Start: 04-04-2018 Cystoscopy [facility] DimitriosRapt MediaAdriana estrada Comment on above: Cysto/REZUM 02/07/20 19 Appendectomy [facility] DiimtriosRapt MediaLisbeth Colonoscopy [facility] [employer] OncologyLisbeth Elbow region structu re (body structure) [facility] Plan of Treatment Date Care Activity Detail Author Start: 07-27-2026 Medicare Annual Wellness (AWV) Medicare Annual Wellness (AWV) [facility] Start: 11-12-2025 Urine screening for protein Diabetes: Urine Protein Screening [facility] Start: 10-26-2025 Hemoglobin A1c measurement Diabetes: Hemoglobin A1C [facility] Start: 10-05-2025 End: 10-05-2025 Patient encounter procedure 10/05/2025 10:00 AM EST Office Visit [facility] [address] [facility] [address] [place] [id number] Antony Zamarripa MD [address] [facility] [address] [place] [address] [facility] Start: 08-19-2025 Urine screening for protein Diabetes: Urine Protein Screening [facility] Start: 08-08-2025 Screening for malign ant neoplasm of colon [facility] Start: 07-27-2025 End: 07-27-2026 Comprehensive metabolic 2000 panel - Serum or Plasma Comprehensive metabolic panel Lab Routine Type 2 diabetes mellitus with diabetic neuropathy, without long-term current use of insulin (HCC) Paroxysmal atrial fibrillation (HCC) Expected: 07/27/2025 (Approximate), Expires: 07/27/2026 [facility] Comment on above: Expected: 07/27/2025 (Approximate), Expires: 07/27/2026 Start: 07-27-2025 End: 07-27-2026 Lipid 1996 panel - Serum or Plasma Lipid panel Lab Routine Mixed hyperlipidemia Expected: 07/27/2025 (Approximate), Expires: 07/27/2026 [facility] Comment on above: Expected: 07/27/2025 (Approximate), Expires: 07/27/2026 Start: 07-27-2025 End: 07-27-2026 TSH W/REFLEX TO FT4 TSH W/REFLEX TO FT4 Lab Routine Type 2 diabetes mellitus with diabetic neuropathy, without long-term current use of insulin (HCC) Paroxysmal atrial fibrillation (HCC) Expected: 07/27/2025 (Approximate), Expires: 07/27/2026 [facility] Comment on above: Expected: 07/27/2025 (Approximate), Expires: 07/27/2026 Start: 07-27-2025 End: 07-27-2025 Patient encounter procedure 07/27/2025 10:30 AM EDT Office Visit [facility] [place] [address] [place] [address] [place] [address] Antony Zamarripa MD [address] [place] [address] [place] [address] Arrived [facility] [place] Comment on above: Arrived Start: 07-06-2025 Influenza vaccination Influenza Vacc ine (#1) [facility] Start: 02-27-2025 Glaucoma screening Diabetes: R etinopathy Screening [facility] Start: 02-10-2025 Hemoglobin A1c measurement Diabetes: Hemoglobin A1C [facility] Start: 01-13-2025 End: 01-13-2025 Patient encounter procedure 01/13/2025 3:40 PM EDT Office Visit [facility] [address] [place] [address] Fanny Gottlieb NP [address] [place], [place] [facility] Start: 11-12-2024 End: 11-12-2024 Patient encounter procedure 11/12/2024 10:15 AM EST Office Visit [facility] [address] [place] [address] [place] [address] Antony Zamarripa MD [address] [facility] [address] [place] [address] [facility] Start: 11-11-2024 End: 11-11-2024 Patient encounter procedure 11/11/2024 3:45 PM EST Office Visit [facility] [address] [place] [phone] Bennie Perdomo DO [address] [place] [address] [facility] Start: 11-07-2024 Hemoglobin A1c measurement Diabetes: Hemoglobin A1C [facility] Start: 09-16-2024 End: 09-16-2024 Patient encounter procedure 09/16/2024 4:15 PM EST Office Visit [facility] [address] [place] [phone] Bennie Perdomo DO [address] [place] [address] [facility] Start: 09-11-2024 End: 09-11-2024 Patient encounter procedure 09/11/2024 11:00 AM EST Office Visit [facility] [address] [facility] [address] [place] [address] Antony Zamarripa MD [address] [facility] [address] [place] [address] [facility] Start: 08-24-2024 Urine screening for protein Diabetes: Urine Protein Screening [facility] Start: 08-15-2024 End: 08-15-2025 Comprehensive metabolic 2000 panel - Serum or Plasma Comprehensive metabolic panel Lab Routine Uncontrolled type 2 diabetes mellitus with hyperglycemia ([facility]/HCC) Expected: 08/15/2024 (Approximate), Expires: 08/15/2025 [facility] Comment on above: Expected: 08/15/2024 (Approximate), Expires: 08/15/2025 Start: 08-15-2024 End: 08-15-2025 Lipid 1996 panel - Serum or Plasma Lipid panel Lab Routine Mixed hyperlipidemia (CMS/HCC) Expected: 08/15/2024 (Approximate), Expires: 08/15/2025 [facility] Comment on above: Expected: 08/15/2024 (Approximate), Expires: 08/15/2025 Start: 07-28-2024 End: 07-28-2024 Patient encounter procedure [facility] Comment on above: Arrived Start: 07-26-2024 Medicare Annual Wellness (AWV) Medicare Annual Wellness (AWV) [facility] Start: 07-06-2024 Influenza vaccination Influenza Vacc ine (#1) [facility] Start: 04-08-2024 Hemoglobin A1c measurement Diabetes: Hemoglobin A1C [facility] Start: 1950 Screening for malign ant neoplasm of colon [facility] CBC W Auto Different ial panel - Blood CBC and differential Lab Routine Uncontrolled type 2 diabetes mellitus with hyperglycemia (CMS/HCC) Ordered: 08/15/2024 [facility] Comment on above: Ordered: 08/15/2024 CBC W Auto Different ial panel - Blood CBC and differential Lab Routine Type 2 diabetes mellitus with diabetic neuropathy, without long-term current use of insulin (HCC) Paroxysmal atrial fibrillation (HCC) Ordered: 07/27/2025 [facility] Work Phone: Comment on above: Ordered: 07/27/2025 Microalbumin/Creatin ine panel in random Urine Microalbumin / creatinine urine ratio Lab Routine Type 2 diabetes mellitus with hyperglycemia, without long-term current use of insulin (CMS/HCC) Ordered: 08/15/2024 [facility] Comment on above: Ordered: 08/15/2024 Prostate specific Ag [Mass/volume] in Serum or Plasma PSA Lab Routine Prostate cancer screening Ordered: 08/15/2024 [facility] Work Phone: Comment on above: Ordered: 08/15/2024 Prostate specific Ag [Mass/volume] in Serum or Plasma PSA Lab Routine Prostate cancer screening Ordered: 07/27/2025 [facility] Comment on above: Ordered: 07/27/2025 Immunizations Immunization Date Immunization Notes Care Provider Fa cility 07-27-2025 influenza, high dose seasonal, preservative-free Antony Zamarripa MD Work Phone: [facility] 10-13-2024 influenza, high dose seasonal, preservative-free Bennie Perdomo DO Work Phone: [facility] 10-13-2024 influenza virus vacc ine, unspecified formulation Generic Provider [facility] 11-22-2023 Influenza, Seasonal, Quadrivalent, Adjuvanted Generic Provider [facility] Work Phone: 11-22-2023 influenza virus vacc ine, unspecified formulation Generic Provider [facility] 2022 Influenza, High-dose Seasonal, Quadrivalent, Preservative Free Generic Provider [facility] 11-13-2020 zoster vaccine recombinant Generic Provider [facility] 07-16-2020 Influenza, High-dose Seasonal, Quadrivalent, Preservative Free Generic Provider [facility] 07-16-2020 pneumococcal conjuga te vaccine, 13 valent Generic Provider [facility] 07-16-2020 zoster vaccine recombinant Generic Provider [facility] 07-24-2019 influenza, high dose seasonal, preservative-free Generic Provider [facility] 06-27-2019 pneumococcal polysaccharide vaccine, 23 valent Generic Provider [facility] 08-22-2018 influenza, injectabl e, quadrivalent, preservative free Generic Provider [facility] 08-28-2017 influenza, injectabl e, quadrivalent, preservative free Generic Provider [facility] 08-23-2016 influenza, injectabl e, quadrivalent, contains preservative Generic Provider [facility] 08-23-2015 influenza, injectabl e, quadrivalent, preservative free Generic Provider [facility] 08-25-2014 seasonal influenza, intradermal, preservative free Generic Provider [facility] 11-05-1999 tetanus and diphther ia toxoids, adsorbed, preservative free, for adult use (5 Lf of tetanus toxoid and 2 Lf of diphtheria toxoid) Generic Provider [facility] Payers Date Payer Category Payer [employer] [id number] 2022 [employer] others[employer] FOR LIFE [id number] 2022-Present [address] [place] [address] [id number] 2022 () [id number] 2020 Medicare [id number] 2015 Medicare [id number] 1959 [employer] ( [employer] others) [id number] 1959 Medicare [id number] 1950 Unknown [id number] [id number]. 2.593 1950 Unknown [id number] 2.16.840.1.269805.3.579. 2.593 1950 Unknown [id number] 2.16.840.1.555016.3.579. 2.727 1950 Unknown [id number] 2.16.840.1.176311.3.579. 2.727 1950 Unknown [id number] 2.16.840.1.588061.3.579. 2.727 1950 Unknown [id number] 2.16.840.1.549582.3.579. 2.727 1950 Unknown [id number] 2.16.840.1.578711.3.579. 2.727 1950 Unknown [id number] 2.16.840.1.253534.3.579. 2.727 1950 Unknown [id number] 2.16.840.1.536812.3.579. 2.1259 1950 Unknown [id number] 2.16.840.1.584812.3.579. 2.1259 1950 Unknown [id number] 2.16.840.1.650723.3.579. 2.9 1950 Unknown [id number] 2.16.840.1.902528.3.579. 2.1258 1950 Unknown [id number] 2.16.840.1.183808.3.579. 2.9 1950 Unknown [id number] 2.16.840.1.920911.3.579. 2.9 1950 Unknown [id number] 2.16.840.1.794389.3.579. 2.9 Unknown Social History Date Type Detail Facility Start: 05-06-2024 End: 10-13-2024 Tobacco smoking status NCIS Ex-smoker [facility] are Start: 11-05-1972 End: 11-05-1999 History of tobacco use Current smoker [facility] Start: 11-05-1972 End: 11-05-1999 History of tobacco use Cigarette Smoker [facility] Start: 07-25-2023 End: 05-06-2024 Cigarettes smoked current (pack per day) - Reported 1.5 [facility] Start: 05-06-2024 Tobacco use and exposure Smoke less tobacco non-user [facility] Start: 07-28-2024 End: 07-27-2025 Alcoholic beverage intake Ex-drinker (finding) [facility]ated [facility] Start: 07-25-2023 End: 07-26-2023 Humiliation, Afraid, Rape, and Kick questionnaire [HARK] [facility] Within the last year , have you been afraid of your partner or ex-partner? No [facility] How often do you att end sikhism or latter-day services? Patient declined [facility] Are you now , , , , never or living with a partner? [facility] How often to you hav e a drink containing alcohol? Never [facility] How hard is it for y ou to pay for the very basics like food, housing, medical care, and heating Hard [facility] Do you feel stress - tense, restless, nervous, or anxious, or unable to sleep at night because your mind is troubled all the time - these days [OSQ] Rather much [facility] (I/We) worried wheth er (my/our) food would run out before (I/we) got money to buy more. Never true [facility] Start: 01-07-2024 Alcohol Comment caffeine intak e: more than 4 cups per day coffee, soda [facility] Start: 1950 Sex assigned at Not on file [facility] Functional Status Date Assessment Result Facility 07-27-2025 Patient Health Quest ionnaire 2 item (PHQ-2) [Reported] [facility] Clinical Notes 07-28-2024 to 08-07-2025 Antony Zamarripa MD - 07/27/2025 10:30 AM Betito Zamarripa MD - 11/12/2024 10:15 AM ESTNicole Leanne, - 11/11/2024 3:45 PM ESTNicole Leanne, DO - 09/16/2024 4:15 PM ESTLaboratoryLaboratory Note Date & Type Note Facility 08-07-2025 Note [facility] Subjective Vinayak Madrigal is a 75 y.o. year old male patient being seen for Atrial Fibrillation ( Hypertension, Hyperlipidemia , abdominal aortic aneurysm , and Shortness of Breath Patient Active Problem List Diagnosis Allergic rhinitis [...] beats Type 2 diabetes mellitus without complication Benign prostatic hyperplasia without urinary obstruction Abdominal aortic aneurysm without rupture Abdominal aortic ectasia Abnormal CT of the chest Diabetic peripheral neuropathy associated with type 2 diabetes mellitus (CMS/HCC) Hypertensive heart disease without heart failure Lung nodules LVH (left ventricular hypertrophy) Mild nonproliferative diabetic retinopathy associated with type 2 diabetes mellitus (CMS/HCC) Obesity (BMI 30-39.9) Uncontrolled type 2 diabetes mellitus with hyperglycemia (CMS/HCC) SVT (supraventricular tachycardia) Short-term memory loss Tremor of both hands JESS (obstructive sleep apnea) Ugapj-7-bdisiajgksi deficiency (CMS/HCC) Hypersomnia due to medical condition Hypersomnolence Hypertension Folic acid deficiency Dysuria Emphysema due to kmfpw-1-jvuswboztlw deficiency (CMS/HCC) Feeling of incomplete bladder emptying Frequent urination Gross hematuria Weak urinary stream HPI 08/07/2025 Patient is here today for follow-up visit.He states that he has been doing well. He denies any chest discomfort at rest or with exertion. He denies exertional dyspnea, orthopnea or paroxysmal nocturnal dyspnea. He denies dizziness, syncope or near syncope. He denies palpitations, legs edema or discomfort on exertion. He walks his dog every day for a mile fast walk. The patient reports that he is taking all the medication on his list however when we checked his pharmacy amlodipine and Coreg were not picked up for a while. His usually the one who follows up on his meds and she is out of town 11/17/2024 Patient is here today for follow-up visit. He reports some shortness of breath lately while he was shoveling snow however he denies any shortness of breath with ordinary activities. He denies chest discomfort at rest or with exertion. Denies orthopnea or paroxysmal nocturnal dyspnea or dizziness or palpitation or legs edema legs comfort on exertion. He checks his blood pressure at home and it has been good He does not wear oxygen but he is on BiPAP during the night. He quit smoking many years ago ROS All systems were reviewed and they were negative except for the positive findings noted above in the history Past Medical History: Diagnosis Date Aneurysm Atrial fibrillation ([facility]/HCC) COPD (chronic obstructive pulmonary disease) (CMS/HCC) Diabetes mellitus (CMS/HCC) Hyperlipidemia Hypertension Obesity BMI 33.23 Past Surgical History: Procedure Laterality Date ABLATION OF DYSRHYTHMIC FOCUS APPENDECTOMY CARDIAC CATHETERIZATION SINUS SURGERY VASECTOMY Family History Problem Relation Name Age of Onset Heart attack Father Coronary artery disease Father Coronary artery disease Brother Stroke Brother Social History Tobacco Use Smoking status: Former Types: Cigarettes Smokeless tobacco: Never Substance Use Topics Alcohol use: Not Currently Drug use: Never Allergies Allergies Allergen Reactions Penicillins Rash and Unknown Medications Current Outpatient Medications: amantadine (Symmetrel) 100 mg tablet, Take 100 mg by mouth in the morning., Disp: , Rfl: apixaban (Eliquis) 5 mg tablet, Take 5 mg by mouth in the morning and at bedtime., Disp: , Rfl: amLODIPine (Norvasc) 5 mg tablet, Take 1 tablet (5 mg) by mouth in the morning. (Patient not taking: Reported on 08/07/2025), Disp: 90 tablet, Rfl: 3 atorvastatin (Lipitor) 40 mg tablet, TAKE 1 TABLET IN THE MORNING, Disp: 90 tablet, Rfl: 3 benazepril (Lotensin) 40 mg tablet, Take 1 tablet (40 mg) by mouth in the morning. (Patient not taking: Reported on 08/07/2025), Disp: 90 tablet, Rfl: 3 Breztri Aerosphere 160-9-4.8 mcg/actuation HFA aerosol inhaler, Inhale 2 puffs every 12 (twelve) hours., Disp: , Rfl: carvedilol (Coreg) 6.25 mg tablet, TAKE 1 TABLET WITH BREAKFAST AND WITH EVENING MEAL, Disp: 60 tablet, Rfl: 11 celecoxib (CeleBREX) 200 mg capsule, Take 200 mg by mouth in the morning. As needed, Disp: , Rfl: folic acid (Folvite) 1 mg tablet, Take 1 mg by mouth in the morning., Disp: , Rfl: glimepirid (more content not included)... [facility] 07-27-2025 History of Present illness Narrative Images from the original note were not included. Subjective : Chief Complaint: Vinayak Madrigal is an 74 y.o. male here for an annual wellness visit. I have reviewed and reconciled the history and medication list with the patient today. Current Outpatient Medications Medication Sig Dispense Refill albuterol HFA 90 mcg/act inhaler Inhale 2 puffs every 6 (six) hours if needed Alpha1-Proteinase Inhibitor (PROLASTIN IV) Infuse into a venous catheter every 7 (seven) days Per dr baer amantadine (Symmetrel) 100 MG tablet Take 1 tablet (100 mg) by mouth in the morning and 1 tablet (100 mg) before bedtime. 1 po daily for 1 week then can increase to bid. 60 tablet 11 amLODIPine (Norvasc) 5 MG tablet Take 5 mg by mouth in the morning. apixaban (Eliquis) 5 MG tablet TAKE 1 TABLET TWICE A DAY 200 tablet 3 atorvastatin (Lipitor) 40 MG tablet Take 40 mg by mouth in the morning. benazepril (Lotensin) 40 MG tablet Take 40 mg by mouth in the morning. Ydtjima-Hysmijlmslu-Dpuwsayvdz (Breztri Aerosphere) 160-9-4.8 MCG/ACT aerosol Inhale 2 puffs every 12 (twelve) hours carvedilol (Coreg) 6.25 MG tablet Take 6.25 mg by mouth in the morning and 6.25 mg in the evening. Take with meals. celecoxib (CeleBREX) 200 MG capsule Take 1 capsule (200 mg) by mouth Daily 90 capsule 3 folic acid (Folvite) 1 MG tablet Take 1 tablet (1,000 mcg) by mouth Daily 90 tablet 1 glimepiride (Amaryl) 2 MG tablet TAKE 1 TABLET IN THE MORNING AND 1 TABLET IN THE EVENING WITH MEALS 180 tablet 3 Multiple Vitamin (Multivitamin) tablet Take 1 tablet by mouth Daily SITagliptin (Januvia) 50 MG tablet Take 1 tablet (50 mg) by mouth in the morning and 1 tablet (50 mg) before bedtime. 200 tablet 3 No current facility-administered medications for this visit. Review of Systems List of current healthcare providers: Patient Care Team: Antony Zamarripa MD as PCP - General (Internal Medicine) Antony Zamarripa MD as PCP - [facility]CO [employer] Medicare Annual Visit Over the past 2 weeks, how often have you been bothered by any of the following problems? Little interest or pleasure in doing things: Not at all Calderón Fall Risk History of Falling, Immediate or Within 3 Months: No Secondary Diagnosis: No Ambulatory Aid: Walks without aid/bedrest/nurse assist Health Risk Assessment Form Do you need help eating, bathing, using the toilet, dressing, or getting around your home?: No Can you prepare your own meals?: Yes Can you do your own housework without help?: Yes Can you shop for groceries or clothes without help?: Yes Do you exercise for about 20 minutes 3 or more days a week?: Yes How confident are you that you can control and manage most of your health problems?: Very confident Can you mange your money, credit cards and accounts, pay bills and taxes?: Yes Cognitive Screening Three Word Registration: Apple, Watch, Zina Clock Drawing: Partial Clock - 1 Three Word Recall: 2/3 words correct - 2 Total Score (0-5 Points): 3 Pain Assessment Pain Score: 8 Advance Care Planning Do you have a living will?: Yes Do you have a medical power of day care home provider?: Yes Who is your medical power of day care home provider?: Objective : BP 126/68 Pulse 69 Ht 5' 11 Wt 233 lb SpO2 96% BMI 32.50 kg/m No results found. Physical Exam Constitutional: General: He is not in acute distress. Appearance: He is normal weight. He is not ill-appearing. HENT: Head: Normocephalic. Cardiovascular: Rate and Rhythm: Rhythm irregular. Heart sounds: Normal heart sounds. No murmur heard. Pulmonary: Effort: Pulmonary effort is normal. Breath sounds: Normal breath sounds. Musculoskeletal: General: No swelling. Right hip: Normal. No tenderness. Normal range of motion. Left hip: Normal. No tenderness. Normal range of motion. Right lower leg: No edema. Left lower leg: No edema. Neurological: Mental Status: He is alert. Psychiatric: Mood and Affect: Mood normal. Thought Content: Thought content normal. Judgment: Judgment normal. Office Visit on 07/27/2025 Component Date Value Ref Range Status Hemoglobin A1C 07/27/2025 7.3 Final Assessment/Plan : The following health maintenance schedule was reviewed with the patient and provided in printed form in the after visit summary: Health Maintenance Topic Date Due Medicare Annual Wellness (AWV) 07/26/2024 Diabetes: Retinopathy Screening 02/27/2025 Colorectal Cancer Screening 08/08/2025 Diabetes: Hemoglobin A1C 10/26/2025 Diabetes: Urine Protein Screening 11/12/2025 Influenza Vaccine Completed Pneumococcal Vaccine: 65+ Years Completed Advance Care Planning This office visit was spent in consultation regarding the patient's current medical problems, differential diagnoses, testing/imaging results, and treatment options. Greater than 25 minutes was spent in vfvm-er-dzhj consultation and coordination of care. Assessment/Plan Diagnoses and all orders for this visit: Routine general medical examination at health care facility ACP (advance care planning) Encounter for immunization Type 2 diabetes mellitus with diabetic neuropathy, without long-term current use of insulin (HCC) - POCT Glycated hemoglobin, total - CBC and differential - Comprehensive metabolic panel; Future - TSH W/REFLEX TO FT4; Future Paroxysmal atrial fibrillation (HCC) - CBC and differential - Comprehensive metabolic panel; Future - TSH W/REFLEX TO FT4; Future Mixed hyperlipidemia - Lipid panel; Future Primary hypertension Emphysema due to sgtjv-5-aksdkfckttn deficiency (HCC) Diastolic dysfunction Benign essential hypertension Prostate cancer screening - PSA Degeneration of intervertebral disc of lumbar region with discogenic back pain and lower extremity pain - Ambulatory referral to Neurology; Future - He has Bilateral hip pain, I suspect it is related to his known DDD spine. On exam hips with FROM and non-tender. Memory loss - Ambulatory referral to Neurology; Future - Has been told he early Parkinsonism, refer to Neurology for evaluation. Other orders - Flu vaccine, high dose seasonal, PF (VHF356) (Fluzone High Dose) Orders Placed This Encounter Procedures Flu vaccine, high dose seasonal, PF (EDX428) (Fluzone High Dose) POCT Glycated hemoglobin, total Electronically signed by Antony Zamarripa MD on July 27, 2025 documented in this encounter [facility] 11-17-2024 Note [place] [facility] - [facility] Subjective Vinayak Madrigal is a 74 y.o. year old male patient being seen for Atrial Fibrillation ( Hypertension, Hyperlipidemia , abdominal aortic aneurysm , and Shortness of Breath Patient Active Problem List Diagnosis Allergic rhinitis [...] of both hands JESS (obstructive sleep apnea) Xtegv-5-isgavrfizny deficiency (CMS/HCC) Hypersomnia due to medical condition Hypersomnolence Hypertension Folic acid deficiency Dysuria Emphysema due to tvmrt-0-ubixjqrnalq deficiency (CMS/HCC) Feeling of incomplete bladder emptying Frequent urination Gross hematuria Weak urinary stream HPI Patient is here today for follow-up visit. He reports some shortness of breath lately while he was shoveling snow however he denies any shortness of breath with ordinary activities. He denies chest discomfort at rest or with exertion. Denies orthopnea or paroxysmal nocturnal dyspnea or dizziness or palpitation or legs edema legs comfort on exertion. He checks his blood pressure at home and it has been good He does not wear oxygen but he is on BiPAP during the night. He quit smoking many years ago ROS All systems were reviewed and they were negative except for the positive findings noted above in the history Past Medical History: Diagnosis Date Aneurysm (CMS/HCC) Atrial fibrillation (CMS/HCC) COPD (chronic obstructive pulmonary disease) (CMS/HCC) Diabetes mellitus (CMS/HCC) Hyperlipidemia Hypertension Obesity BMI 33.23 Past Surgical History: Procedure Laterality Date APPENDECTOMY SINUS SURGERY VASECTOMY Family History Problem Relation Name Age of Onset Heart attack Father Coronary artery disease Father Coronary artery disease Brother Stroke Brother Social History Tobacco Use Smoking status: Former Types: Cigarettes Smokeless tobacco: Never Substance Use Topics Alcohol use: Not Currently Drug use: Never Allergies Allergies Allergen Reactions Penicillins Rash and Unknown Medications Current Outpatient Medications: amantadine (Symmetrel) 100 mg tablet, Take 100 mg by mouth in the morning., Disp: , Rfl: amLODIPine (Norvasc) 5 mg tablet, Take 1 tablet (5 mg) by mouth in the morning., Disp: 90 tablet, Rfl: 3 apixaban (Eliquis) 5 mg tablet, Take 5 mg by mouth in the morning and at bedtime., Disp: , Rfl: atorvastatin (Lipitor) 40 mg tablet, TAKE 1 TABLET IN THE MORNING, Disp: 90 tablet, Rfl: 3 benazepril (Lotensin) 40 mg tablet, Take 1 tablet (40 mg) by mouth in the morning., Disp: 90 tablet, Rfl: 3 Breztri Aerosphere 160-9-4.8 mcg/actuation HFA aerosol inhaler, Inhale 2 puffs every 12 (twelve) hours., Disp: , Rfl: carvedilol (Coreg) 6.25 mg tablet, Take 1 tablet (6.25 mg) by mouth with breakfast and with evening meal., Disp: 60 tablet, Rfl: 0 celecoxib (CeleBREX) 200 mg capsule, Take 200 mg by mouth in the morning. As needed, Disp: , Rfl: folic acid (Folvite) 1 mg tablet, Take 1 mg by mouth in the morning., Disp: , Rfl: glimepiride (Amaryl) 2 mg tablet, Take 2 mg by mouth 2 times daily., Disp: , Rfl: SITagliptin phosphate (Januvia) 50 mg tablet, Take 50 mg by mouth in the morning., Disp: , Rfl: Objective Visit Vitals BP 136/76 (BP Location: Left arm, Patient Position: Sitting) Pulse 91 Ht 1.829 m (6') Wt 108 kg (237 lb) SpO2 93% BMI 32.14 kg/m??? Smoking Status Former BSA 2.34 m??? Physical exam: GENERAL: alert and oriented x3, well developed, in no acute distress. HEAD: atraumatic, normocephalic. EYES: MARIELENA, EOMI. NECK: trachea midline, no JVD present, no carotid bruits present. CARDIAC: S1, S2 present. RRR. No murmur, rubs, or gallops. RESPIRATORY: CTAB, no increased effort of breathing, no rales, (more content not included)... [facility] 11-12-2024 History of Present illness Narrative Images from the original note were not included. Subjective Patient ID: Vinayak Madrigal is a 74 y.o. male who presents for Diabetes. Diabetes Mellitus Patient presents for follow up of diabetes. Current symptoms include: none. Patient denies foot ulcerations, hypoglycemia , polydipsia, polyuria, and visual disturbances. Evaluation to date has included: fasting blood sugar, fasting lipid panel, hemoglobin A1C, and microalbuminuria. Home sugars: BGs range between 150 and 200 Pt is not taking synjardy he is not sure how or why it was stopped Diabetes Pertinent negatives for diabetes include no chest pain and no fatigue. Hypertension Pertinent negatives include no chest pain. Med Refill Pertinent negatives include no chest pain or fatigue. Current Outpatient Medications on File Prior to Visit Medication Sig Dispense Refill Alpha1-Proteinase Inhibitor (PROLASTIN IV) Infuse into a venous catheter every 7 (seven) days Per dr baer amantadine (Symmetrel) 100 MG tablet Take 1 tablet (100 mg) by mouth in the morning and 1 tablet (100 mg) before bedtime. 1 po daily for 1 week then can increase to bid. 60 tablet 11 amLODIPine (Norvasc) 5 MG tablet Take 5 mg by mouth in the morning. apixaban (Eliquis) 5 MG tablet TAKE 1 TABLET TWICE A DAY 200 tablet 3 atorvastatin (Lipitor) 40 MG tablet Take 40 mg by mouth in the morning. benazepril (Lotensin) 40 MG tablet Take 40 mg by mouth in the morning. Xqvvewk-Jtmhlcdqqod-Usktvlxzac (Breztri Aerosphere) 160-9-4.8 MCG/ACT aerosol Inhale 2 puffs every 12 (twelve) hours carvedilol (Coreg) 6.25 MG tablet Take 6.25 mg by mouth in the morning and 6.25 mg in the evening. Take with meals. celecoxib (CeleBREX) 200 MG capsule Take 1 capsule (200 mg) by mouth Daily 90 capsule 3 folic acid (Folvite) 1 MG tablet Take 1 tablet (1,000 mcg) by mouth Daily 90 tablet 1 glimepiride (Amaryl) 2 MG tablet TAKE 1 TABLET IN THE MORNING AND 1 TABLET IN THE EVENING WITH MEALS 180 tablet 3 Multiple Vitamin (Multivitamin) tablet Take 1 tablet by mouth Daily SITagliptin (Januvia) 50 MG tablet Take 1 tablet (50 mg) by mouth in the morning and 1 tablet (50 mg) before bedtime. 200 tablet 3 [DISCONTINUED] amantadine (Symmetrel) 100 MG tablet Take 1 tablet (100 mg) by mouth in the morning and 1 tablet (100 mg) before bedtime. 180 tablet 1 [DISCONTINUED] empagliflozin-metFORMIN (Synjardy) 12.5-1000 MG Take 1 tablet by mouth in the morning and 1 tablet in the evening. Take with meals. (Patient not taking: Reported on 11/11/2024) 90 tablet 7 No current facility-administered medications on file prior to visit. I have reviewed and reconciled the history and medication list with the patient today. Allergies Allergen Reactions Penicillin G Unknown and Rash Social History Tobacco Use Smoking status: Former Current packs/day: 0.00 Average packs/day: 1.5 packs/day for 27.0 years (40.5 ttl pk-yrs) Types: Cigarettes Start date: 1972 Quit date: 1999 Years since quittin.0 Smokeless tobacco: Never Vaping Use Vaping status: Never Used Substance Use Topics Alcohol use: Not Currently Comment: caffeine intake: more than 4 cups per day coffee, soda Drug use: Never Family History Problem Relation Name Age of Onset COPD Mother Lung disease Mother Hypertension Father Heart disease Father Hypertension Sibling Heart disease Sibling Stroke Sibling Past Medical History: Diagnosis Date Afib (CMS/HCC) Biceps tendinosis of right shoulder 09/14/2017 Bursitis, Labral Tear Brachial neuritis or radiculitis 07/06/2017 Collapsed lung 2005 fx hip d/t fall Diabetes mellitus, type 2 (CMS/HCC) Disturbance of skin sensation 07/06/2017 Hypertension (CMS/HCC) LVH (left ventricular hypertrophy) 05/29/2023 Mitral regurgitation 05/29/2023 Nasal polyp Past Surgical History: Procedure Laterality Date APPENDECTOMY 1995 CATARACT EXTRACTION W/ INTRAOCULAR LENS IMPLANT CT ANGIOGRAM HEART CORONARY 02/05/2024 CT ANGIOGRAM TAVR 02/05/2024 ELBOW BURSA SURGERY Left 1977 elbow LUNG SURGERY 2006 collapsed lung, fx hip NASAL POLYP SURGERY 1998 bilat. nasal polypectomy and pansinusectomy, [facility] NASAL POLYP SURGERY x3 (85, 95, 97) OTHER SURGICAL HISTORY 2018 facial lesion SINUS SURGERY 01/13/2010 ant. ethmoidectomy, frontal sinusotomy, HHT VASECTOMY 1978 Visit Vitals BP 136/84 Pulse 82 Ht 5' 11 Wt 240 lb SpO2 96% BMI 33.47 kg/m Smoking Status Former BSA 2.34 m Review of Systems Constitutional: Negative for fatigue. Cardiovascular: Negative for chest pain. Objective Physical Exam Constitutional: General: He is not in acute distress. Appearance: He is normal weight. He is not ill-appearing. HENT: Head: Normocephalic. Cardiovascular: Rate and Rhythm: Rhythm irregular. Heart sounds: Normal heart sounds. No murmur heard. Pulmonary: Effort: Pulmonary effort is normal. Breath sounds: Normal breath sounds. Musculoskeletal: General: No swelling. Right lower leg: No edema. Left lower leg: No edema. Neurological: Mental Status: He is alert. Psychiatric: Mood and Affect: Mood normal. Thought Content: Thought content normal. Judgment: Judgment normal. Office Visit on 11/12/2024 Component Date Value Ref Range Status Hemoglobin A1C 11/12/2024 8.9 Final Assessment/Plan Diagnoses and all orders for this visit: Type 2 diabetes mellitus with hyperglycemia, without long-term current use of insulin (CMS/HCC) - POCT Glycated hemoglobin, total - empagliflozin-metFORMIN (Synjardy) 12.5-1000 MG; Take 1 tablet by mouth in the morning and 1 tablet in the evening. Take with meals. He has not been taking this for unclear reasons. New Rx was sent in. If this fails he will likely need insulin. Kgrrh-5-eknbofjtgso deficiency (CMS/HCC) - Seeing Dr Baer, getting IV treatment for this Other emphysema (CMS/HCC) Parkinsonism, unspecified (CMS/HCC) - Dr Perdomo is seeing him for this. She started Amantadine in March for this. Continue with her for this. Type 2 diabetes mellitus with diabetic chronic kidney disease (CMS/HCC) Chronic kidney disease, stage 3a (HCC) (CMS/HCC) Paroxysmal atrial fibrillation (CMS/HCC) Type 2 diabetes mellitus with diabetic neuropathy, unspecified (CMS/HCC) Follow up in about 6 weeks (around 12/24/2024) for DM- A1C. documented in this encounter [facility] 11-11-2024 History of Present illness Narrative Subjective The patient had an appt with hematology 09/22. He states that they did not find anything abnormal. He got a new CPAP machine and he states that he has too much pressure. It is blowing the mask off and it is hard to tolerate it He does not like the tank on it. It will drain over night He uses [facility] He states no change in tremor since last seen. States the tremors are mainly in the hands/arms. At times interfere with his drinking but not as much with his eating. He is resorted to using tumblers with a lid on him. He states if he takes his time writing he does ok. Dr Zamarripa told patient that he should discuss being on amantadine. Dr Zamarripa gave him a prescription for one month He thinks that it did help. His live out nanny does not want him to stop any other of his medication. He scored 27/30 on his MMSE at his initial visit. MMSE today is 28/30. No change in balance issues. He still wobbles from time to time. This is increase when he is standing up from sitting. He is exercising a little he knows he needs to do more. . He is in physical therapy. He is unable to walk distances because of his hip and his knees hurt if he rides the stationary bike. Past Medical History: Diagnosis Date Afib ([facility]) Biceps tendinosis of right shoulder 09/14/2017 Bursitis, Labral Tear Brachial neuritis or radiculitis 07/06/2017 Collapsed lung 2005 fx hip d/t fall Diabetes mellitus, type 2 ([facility]) Disturbance of skin sensation 07/06/2017 Hypertension ([facility]) LVH (left ventricular hypertrophy) 05/29/2023 Mitral regurgitation 05/29/2023 Nasal polyp Past Surgical History: Procedure Laterality Date APPENDECTOMY 1995 CATARACT EXTRACTION W/ INTRAOCULAR LENS IMPLANT CT ANGIOGRAM HEART CORONARY 02/05/2024 CT ANGIOGRAM TAVR 02/05/2024 ELBOW BURSA SURGERY Left 1977 elbow LUNG SURGERY 2006 collapsed lung, fx hip NASAL POLYP SURGERY 1998 bilat. nasal polypectomy and pansinusectomy, [facility] NASAL POLYP SURGERY x3 (85, 95, 97) OTHER SURGICAL HISTORY 2018 facial lesion SINUS SURGERY 01/13/2010 ant. ethmoidectomy, frontal sinusotomy, HHT VASECTOMY 1977 Family History Problem Relation Name Age of Onset COPD Mother Lung disease Mother Hypertension Father Heart disease Father Hypertension Sibling Heart disease Sibling Stroke Sibling Social History Tobacco Use Smoking status: Former Current packs/day: 0.00 Average packs/day: 1.5 packs/day for 27.0 years (40.5 ttl pk-yrs) Types: Cigarettes Start date: 1972 Quit date: 2000 Years since quittin.0 Smokeless tobacco: Never Substance Use Topics Alcohol use: Not Currently Comment: caffeine intake: more than 4 cups per day coffee, soda Allergies: Penicillin g General: No fever or chills HEENT: No nasal congestion or runny nose Pulmonary: No shortness of breath or cough Cardiovascular: No chest pain or palpitations GI: No nausea or vomiting : No dysuria or hematuria Musculoskeletal: No new aches or pains or muscle weakness Infectious: no recurrent fevers or infections Dermatologic: No rashes or skin lesions Neurologic: No new headaches or dizziness other than in HPI Vitals: 11/11/24 1601 BP: 148/90 Pulse: 74 SpO2: 96% Body mass index is 33.12 kg/m . weight: 244 lb 3.2 oz Neurologic exam: Mental status: Awake, alert to person, place and time. Recent and remote memory are intact. Attention and concentration are normal. Fund of knowledge is appropriate for level of education. HEENT: NC/AT Cranial nerves: CN II: Visual acuity is normal. Visual parks full to confrontation. CN III, IV, : pupils equal round and reactive to light. Extraocular movements intact. No ptosis present. CN V: Facial sensation is normal. CN VII: Full and symmetric facial movement. CN VIII: Hearing is normal to finger rub bilaterally: CN IX and X: Palate elevates symmetrically. Normal gag reflex. CN XI: Shoulder shrug is normal bilaterally. CN XII: Tongue is midline without atrophy or fasciculation. Speech: Clear and fluent no aphasia or dysarthria Pronator drift: Negative bilateral upper extremity Coordination: Intact, no signs of dysmetria Good finger to nose and rapid alternating movements Sensory: Sensation is intact to light, temperature and light touch throughout four extremities. Vibratory sensation decreased in a stocking distribution Motor: LUE 5/5 RUE 5/5 LLE 5/5 except for a mild left footdrop with a 4-/5 dorsiflexion he has good plantar flexion RLE 5/5 Tone: Mild tremor and right upper extremity antigravity and tension, left resting tremor and tremor with walking, no rigidity or bradykinesia Worse when held in an antigravity or intension position for extended time. DTR: Geo Biceps, BR 2/4 Geo Patellar 2/4 Geo Achilles 1/4 Gait: Normal to casual gait, difficulty with tandem gait, turns slightly En bloc. Mild left footdrop Romberg's Positive TESTING: EMG showed a severe sensory motor neuropathy likely due to the diabetes EEG was within normal limits CT of the head showed Some small-vessel changes but was otherwise nonacute Assessment/Plan Diagnoses and all orders for this visit: Tremor - amantadine (Symmetrel) 100 MG tablet; Take 1 tablet (100 mg) by mouth in the morning and 1 tablet (100 mg) before bedtime. Left foot drop Memory loss Numbness and tingling B12 deficiency Folic acid deficiency JESS (obstructive sleep apnea) 73-year-old male with a mixed tremor. On the right he has more of an essential tremor on the left he has a very mild parkinsonism. We did try amantadine in the past and it did not help the tremor. He states that Dr. Zamarripa gave him a new prescription and he tried it for a month and feels like it may have helped the tremor this time. We will go ahead and send him a new prescription he can try it again up to twice a day and see what it does. Unfortunately have not seen great experience with it helping essential tremor but may help with some Parkinson's type symptoms. He cannot have the traditional tremor meds because of his cardiac issues and meds. He is on Eliquis so he can not have primidone as it is an enzyme inducer. Cardiology did not approve him starting a beta raquel At this time the patient is not exhibiting any other features of Parkinson's disease other than the left upper extremity tremor at rest and with walking. But no true rigidity cogwheeling or bradykinesia. We will continue to monitor for any change He saw Hematology for possible gammopathy with abnormal SPEP and they did not find anything abnormal we will leave any further workup or follow-up with that to them. He has mild subjective memory loss that is stable at this time. He actually scored 28/30 on his MMSE today and he was 27 in the past. This time it is not worsening. 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 He is now having a little bit of a left footdrop. I suspect this is from the underlying neuropathy. I could repeat an EMG however the previous 1 already showed severe sensory motor polyneuropathy therefore I am not sure we would gain much more information. He is doing physical therapy and that has helped. He is doing some home exercises but not as much as he should and he needs to pick that up. He was offered an AFO but he wants to hold at this point in time. He has balance issues and gait ataxia from it. Labs were normal. TSH 4.341, B12 163 folic acid 8 Have underlying sleep apnea. We need to get a download from [facility] as he got a new machine and he feels like it is too much pressure. We may need to change his settings and we need to check the compliance download. Plan: Continue with the PT Increase home exercises We will leave any further workup for a gammopathy to hematology Can consider AFO footdrop worsens We will get a download from [facility] and see if we can adjust his CPAP pressures and check compliance with his new machine We will do a repeat trial of amantadine 100 mg up to twice a day which was not effective in the past but he feels like a retrial was better so we will try it again. Continue B complex vitamin He can not have primidone due to the Eliquis for Afib- Brain exercises. Cardiovascular exercise. He needs to be much more aggressive with exercise Mediterranean diet. 8 hours of sleep. 12 hour fasting through the night if able. Regular exercise MMSE 28/30 Use the CPAP machine every night. The diagnosis was all discussed with the patient. All questions were answered and they agreed with the treatment plan. Patient will call if there are any new issues or questions. Pt has been fully educated on their diagnosis, treatment options, follow up plan, and return instructions Return to clinic: 2 -3 months documented in this encounter [facility] 10-13-2024 Note Oncology Progress No te Chief Complaint Polyneuropathy; unsure why they are here. Diagnoses 1. Borderline Monocytosis: non specific and needs to be monitored by CBC with diff by his PCP every 6-12 months. 2. Polyneuropathy: unclear etiology. No neoplastic process or factor deficiency or Lead toxicity or infectious or autoimmune process was found. Defer back to his neurologist for management of polyneuropathy. Oncological History/ROS/PE/Assessment and Plan Chief Complaint New patient here for Idiopathic peripheral neuropathy, no specific questions or concerns. History of Present Illness Patient is 74-year-old nice gentleman with history of BPH with urinary obstruction and history of dysuria and incomplete bladder emptying with polyuria who was referred to our hematology and medical oncology clinic from neurology to be evaluated for peripheral neuropathy. Patient denied any alcohol drinking and he is a former smoker quit more than 30 days ago as of today visit 09/22/2024. Patient is not known to have monoclonal gammopathy previously and no known B12 or magnesium deficiency as well. He has no known copper deficiency or Lead toxicity. Labs done on 08/12/2024 revealed hypogammaglobulinemia with gammaglobulin level down to 0.7 with normal beta-1 globulin and beta-2 globulin. TSH was normal at 2.37. B12 was normal 606. Folate level is over 24. Serum protein electrophoresis was done on 08/12/2024 which revealed low gamma globulins. 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 Past surgical history includes appendectomy and cataract extraction, cardiac cath, lung surgery, nasal polypectomy, Vasectomy. Family history positive for mom with COPD,and father with hypertension and heart disease and sibling with a stroke and hypertension. Social history he currently does not smoke quit smoking in the year 1999 after smoking 1 and half pack per day for 27 years. He does not drink alcohol. He drinks more than 4 cups of coffee daily. Medication include amantadine, Norvasc, Eliquis, Lipitor, Lotensin, Coreg, celecoxib 200 mg daily, Synjardy, fluticasone, folic acid 1 mg daily, Amaryl, multivitamin, Januvia. He was on amiodarone but was stopped by cardiology as his A-fib was doing better since his ablation. He stated that his memory has been getting worse. His stated that he can remember things from 15 and 20 years ago but not from an hour ago. He has been having problem with his balance and gait ataxia as well. He complains of tingling and numbness of both of his feet but to higher than his ankles and also complains of left foot flapping or drop while walking with frequent almost falls as well. He drinks form well water that has double filters. 10/13/24: He is here for the results of the labs done on 09/22/24. No neoplastic process or factor deficiency or Lead toxicity or infectious or autoimmune process was found. Defer back to his neurologist for management of polyneuropathy. Will evaluated him for monoclonal gammopathy, factor deficiency, metal toxicity, lymphoproliferative disorders and for paraneoplastic syndrome. We also evaluated him for magnesium level, Lead toxicity and copper deficiencies and tumor markers. All results came back normal. Flow revealed no diagnostic immunophenotypic abnormalities and Myeloma labs revealed no monoclonal protein detected. - His IVAN, rheumatoid factor, angiotensin-converting enzyme, CRP, CEA, CA 19???9, LDH, alpha-fetoprotein, PSA, lead level, copper level, CBC with differential, CMP, HIV and chronic hep panel. and 24-hour urine for UPEP and urine light chains all normal and no M protein detected. 14 points ROS was obtained and was negative. Review of Systems General: Patient denied fevers or headaches or dizziness. Lymphatic: No enlarged lymphadenopathy. Cardiovascular: Patient denied CP, SOB or leg edema. Respiratory: no cough or SOB or hemoptysis. GI: No nausea or vomiting or diarrhea or constipation or rectal bleeding or emesis or melena. : no gross hematuria or dysuria or frequency currently. Extremities: No edema of the lower extremities. Hematological: No focal masses anywhere and no easy bruising or bleeding tendency. Musculoskeletal: No deformities of the joints or the spine. Neurological: no vision changes or weakness or sensory changes. Physical Exam ECOG PS 1. General: alert, no acute distress HENMT: Normocephalic, atraumatic. Neck: supple and no LAP or thyromegaly. Cardiovascular: regular rate and rhythm, No murmurs Respiratory: Lungs CTA, respirations non la (more content not included)... [facility] 09-22-2024 Note Oncology Progress No te Chief Complaint New patient here for Idiopathic peripheral neuropathy, no specific questions or concerns. History of Present Illness Patient is 74-year-old nice gentleman with history of BPH with urinary obstruction and history of dysuria and incomplete bladder emptying with polyuria who was referred to our hematology and medical oncology clinic from neurology to be evaluated for peripheral neuropathy. Patient denied any alcohol drinking and he is a former smoker quit more than 30 days ago as of today visit 09/22/2024. Patient is not known to have monoclonal gammopathy previously and no known B12 or magnesium deficiency as well. He has no known copper deficiency or Lead toxicity. Labs done on 08/12/2024 revealed hypogammaglobulinemia with gammaglobulin level down to 0.7 with normal beta-1 globulin and beta-2 globulin. TSH was normal at 2.37. B12 was normal 606. Folate level is over 24. Serum protein electrophoresis was done on 08/12/2024 which revealed low gamma globulins. 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 Past surgical history includes appendectomy and cataract extraction, cardiac cath, lung surgery, nasal polypectomy, Vasectomy. Family history positive for mom with COPD,and father with hypertension and heart disease and sibling with a stroke and hypertension. Social history he currently does not smoke quit smoking in the year 1999 after smoking 1 and half pack per day for 27 years. He does not drink alcohol. He drinks more than 4 cups of coffee daily. Medication include amantadine, Norvasc, Eliquis, Lipitor, Lotensin, Coreg, celecoxib 200 mg daily, Synjardy, fluticasone, folic acid 1 mg daily, Amaryl, multivitamin, Januvia. He was on amiodarone but was stopped by cardiology as his A-fib was doing better since his ablation. He stated that his memory has been getting worse. His stated that he can remember things from 15 and 20 years ago but not from an hour ago. He has been having problem with his balance and gait ataxia as well. He complains of tingling and numbness of both of his feet but to higher than his ankles and also complains of left foot flapping or drop while walking with frequent almost falls as well. He drinks form well water that has double filters. 14 points ROS was obtained and was negative. Review of Systems General: Patient denied fevers or headaches or dizziness. Lymphatic: No enlarged lymphadenopathy. Cardiovascular: Patient denied CP, SOB or leg edema. Respiratory: no cough or SOB or hemoptysis. GI: No nausea or vomiting or diarrhea or constipation or rectal bleeding or emesis or melena. : no gross hematuria or dysuria or frequency currently. Extremities: No edema of the lower extremities. Hematological: No focal masses anywhere and no easy bruising or bleeding tendency. Musculoskeletal: No deformities of the joints or the spine. Neurological: no vision changes or weakness or sensory changes. Physical Exam ECOG PS 1. General: alert, no acute distress HENMT: Normocephalic, atraumatic. Neck: supple and no LAP or thyromegaly. Cardiovascular: regular rate and rhythm, No murmurs Respiratory: Lungs CTA, respirations non labored. Abdomen: Soft nontender nondistended without hepatosplenomegaly or masses clinically. Extremities: no deformity, no edema. Lymph system: Currently she has no lymphadenopathy in her cervical area subclavian area/axillary areas and inguinal areas bilaterally. Neurological: oriented x 4, LOC appropriate for age, CN II-XII intact, motor strength equal & normal bilaterally, sensation normal bilaterally, speech normal Skin: No rash. Psychiatric: Normal mood and interaction. Diagnoses 1. Peripheral neuropathy (G62.9: Polyneuropathy, unspecified) 2. hypogammaglobulinemia. - Of unclear etiology. His B12 level and folate were normal. Will evaluate him for monoclonal gammopathy, factor deficiency, metal toxicity, lymphoproliferative disorders and for paraneoplastic syndrome. We will also evaluate him for magnesium level, Lead toxicity and copper deficiencies and tumor markers. Labs to be ordered: Peripheral blood flow cytometry, myeloma labs, IVAN, rheumatoid factor, angiotensin-converting enzyme, CRP, CEA, CA 19???9, LDH, alpha-fetoprotein, PSA, lead level, copper level, CBC with differential, CMP and magnesium level. Also obtain HIV and chronic hep panel. Will also obtain 24-hour urine for UPEP and urine light chains. I also recommend doing and MRI of brain and spine MRI as well to evaluate his left foot drop while wa (more content not included)... [facility] 09-16-2024 History of Present illness Narrative Subjective The patient has an appt with hematology 09/22. They would like to know what this is for. HE does remember that we called and discussed that with them. Since his last appt he is taking the amantadine. His states that this has been helping with memory. She also states that the Vitamin B-12 rx was cancelled and she is not sure why. He states no change in tremor since last seen. States the tremors are mainly in the hands/arms. His states he even tremor when he is sleeping. At times interfere with his drinking but not as much with his eating. They do not feel that the amantadine is helping the tremor much but it has not helped but maybe had kept is status quo. He is resorted to using tumblers with a lid on him. It does interfere with him signing his name and it can be an issue with his online banking as his signature used to be rather neat. He states that it is so bad that he is almost unable to use his cell phone. His live out nanny does not want him to stop any other of his medication therefore he cannot states he can remember things from 15 years ago but not from an hour ago. He scored 27/30 on his MMSE at his initial visit. No change in balance issues. He still wobbles from time to time. This is increase when he is standing up from sitting. He is not exercising. He knows he needs to do it. states that it is hard to get him off of the love seat. He watches TV and reads. He is unable to walk distances because of his hip and his knees hurt if he rides the stationary bike. Past Medical History: Diagnosis Date Afib (CMS/HCC) Biceps tendinosis of right shoulder 09/14/2017 Bursitis, Labral Tear Brachial neuritis or radiculitis 07/06/2017 Collapsed lung 2006 fx hip d/t fall Diabetes mellitus, type 2 (CMS/HCC) Disturbance of skin sensation 07/06/2017 Hypertension ([facility]) LVH (left ventricular hypertrophy) 05/29/2023 Mitral regurgitation 05/29/2023 Nasal polyp Past Surgical History: Procedure Laterality Date APPENDECTOMY 1996 CATARACT EXTRACTION W/ INTRAOCULAR LENS IMPLANT CT ANGIOGRAM HEART CORONARY 02/05/2024 CT ANGIOGRAM TAVR 02/05/2024 ELBOW BURSA SURGERY Left 1977 elbow LUNG SURGERY 2006 collapsed lung, fx hip NASAL POLYP SURGERY 1998 bilat. nasal polypectomy and pansinusectomy, [facility] NASAL POLYP SURGERY x3 (85, 95, 97) OTHER SURGICAL HISTORY 2018 facial lesion SINUS SURGERY 01/13/2010 ant. ethmoidectomy, frontal sinusotomy, HHT VASECTOMY 1977 Family History Problem Relation Name Age of Onset COPD Mother Lung disease Mother Hypertension Father Heart disease Father Hypertension Sibling Heart disease Sibling Stroke Sibling Social History Tobacco Use Smoking status: Former Current packs/day: 0.00 Average packs/day: 1.5 packs/day for 27.0 years (40.5 ttl pk-yrs) Types: Cigarettes Start date: 1972 Quit date: 2000 Years since quittin.8 Smokeless tobacco: Never Substance Use Topics Alcohol use: Not Currently Comment: caffeine intake: more than 4 cups per day coffee, soda Allergies: Penicillin g General: No fever or chills HEENT: No nasal congestion or runny nose Pulmonary: No shortness of breath or cough Cardiovascular: No chest pain or palpitations GI: No nausea or vomiting : No dysuria or hematuria Musculoskeletal: No new aches or pains or muscle weakness Infectious: no recurrent fevers or infections Dermatologic: No rashes or skin lesions Neurologic: No new headaches or dizziness other than in HPI Vitals: 09/16/24 1613 BP: 138/86 Pulse: 65 SpO2: 95% Body mass index is 33.31 kg/m . weight: 238 lb 12.8 oz Neurologic exam: Mental status: Awake, alert to person, place and time. Recent and remote memory are intact. Attention and concentration are normal. Fund of knowledge is appropriate for level of education. HEENT: NC/AT Cranial nerves: CN II: Visual acuity is normal. Visual parks full to confrontation. CN III, IV, : pupils equal round and reactive to light. Extraocular movements intact. No ptosis present. CN V: Facial sensation is normal. CN VII: Full and symmetric facial movement. CN VIII: Hearing is normal to finger rub bilaterally: CN IX and X: Palate elevates symmetrically. Normal gag reflex. CN XI: Shoulder shrug is normal bilaterally. CN XII: Tongue is midline without atrophy or fasciculation. Speech: Clear and fluent no aphasia or dysarthria Pronator drift: Negative bilateral upper extremity Coordination: Intact, no signs of dysmetria Good finger to nose and rapid alternating movements Sensory: Sensation is intact to light, temperature and light touch throughout four extremities. Vibratory sensation decreased in a stocking distribution Motor: LUE 5/5 RUE 5/5 LLE 5/5 except for a mild left footdrop with a 4-/5 dorsiflexion he has good plantar flexion RLE 5/5 Tone: Mild tremor and right upper extremity antigravity and tension, left resting tremor and tremor with walking, no rigidity or bradykinesia Worse when held in an antigravity or intension position for extended time. DTR: Geo Biceps, BR 2/4 Geo Patellar 2/4 Geo Achilles 1/4 Gait: Normal to casual gait, difficulty with tandem gait, turns slightly En bloc. Mild left footdrop Romberg's Positive TESTING: EMG showed a severe sensory motor neuropathy likely due to the diabetes EEG was within normal limits CT of the head showed Some small-vessel changes but was otherwise nonacute Assessment/Plan Diagnoses and all orders for this visit: Left foot drop - Ambulatory referral to Physical Therapy; Future Parkinsonism, unspecified Parkinsonism type (CMS/HCC) Essential tremor Diabetic peripheral neuropathy associated with type 2 diabetes mellitus (CMS/HCC) B12 deficiency Numbness and tingling Memory loss 73-year-old male with a mixed tremor. On the right he has more of an essential tremor on the left he has a very mild parkinsonism. Amantadine has not helped the tremor but he is not worse either. He cannot have the traditional tremor meds because of his cardiac issues and meds. He is on Eliquis so he can not have primidone as it is an enzyme inducer. Cardiology did not approve him starting a beta raquel If his Afib ever gets under control and he gets out of Afib he could come off the Eliquis and then we could use the Mysoline / primidone however that is not the case at this time they understand the limitations in medication\ At this time the patient is not exhibiting any other features of Parkinson's disease other than the left upper extremity tremor at rest and with walking. But no true rigidity cogwheeling or bradykinesia. We will continue to monitor this. His SPEP was abnormal with a possible gammopathy and he is going to see Hematology for this He has stable mild memory loss however at this time appears to be more of a mild cognitive impairment and some mild forgetfulness but is not overall affecting his day-to-day functioning. HE is overall functioning well. His last MMSE was 27/30. We will monitor this over time. 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 He is now having a little bit of a left footdrop. I suspect this is from the underlying neuropathy. I could repeat an EMG however the previous 1 already showed severe sensory motor polyneuropathy therefore I am not sure we would gain much more information. We will go ahead and send him to some physical therapy so they can give him some exercises. He was offered an AFO but he wants to hold at this point in time. He has balance issues and gait ataxia from it. He is still not exercising. Labs were normal. TSH 4.341, B12 163 folic acid 8 Sleep apnea reports compliance with the CPAP machine. We see him in the sleep clinic for that. Plan: PT for the left lower extremity weakness Continue with hematology evaluation for the abnormal SPEP Continue B complex vitamin He can not have primidone due to the Eliquis for Afib- unless he gets taken off since he had the ablasion Brain exercises. Cardiovascular exercise. He needs to be much more aggressive with exercise Mediterranean diet. 8 hours of sleep. 12 hour fasting through the night if able. Regular exercise Last visit MMSE 27/30 Repeat MMSE at next visit Consider trial of dopmanergic medication if tremor worsens Use the CPAP machine every night. The diagnosis was all discussed with the patient. All questions were answered and they agreed with the treatment plan. Patient will call if there are any new issues or questions. Pt has been fully educated on their diagnosis, treatment options, follow up plan, and return instructions Return to clinic: 3 weeks documented in this encounter [facility] 09-11-2024 History of Present illness Narrative Images from the original note were not included. HPI Results Additional comments: Lab results Last edited by Sandra Jordan LPN on 09/11/2024 10:52 AM. Subjective Patient ID: Vinayak Madrigal is a 74 y.o. male who presents for Diabetes and Results (Lab results). Diabetes Mellitus Patient presents for follow up of diabetes. Current symptoms include: none. Patient denies foot ulcerations, hypoglycemia , polydipsia, polyuria, and visual disturbances. Evaluation to date has included: fasting blood sugar, fasting lipid panel, hemoglobin A1C, and microalbuminuria. Home sugars: BGs range between 180 and 225 Diabetes Pertinent negatives for diabetes include no chest pain and no fatigue. Hypertension Pertinent negatives include no chest pain. Med Refill Pertinent negatives include no chest pain or fatigue. Current Outpatient Medications on File Prior to Visit Medication Sig Dispense Refill amantadine (Symmetrel) 100 MG tablet Take 1 tablet (100 mg) by mouth in the morning and 1 tablet (100 mg) before bedtime. 1 po daily for 1 week then can increase to bid. 60 tablet 11 amLODIPine (Norvasc) 5 MG tablet Take 5 mg by mouth in the morning. apixaban (Eliquis) 5 MG tablet TAKE 1 TABLET TWICE A DAY 200 tablet 3 atorvastatin (Lipitor) 40 MG tablet Take 40 mg by mouth in the morning. benazepril (Lotensin) 40 MG tablet Take 40 mg by mouth in the morning. Mebrely-Foejosqsnpz-Vagludhgla (Breztri Aerosphere) 160-9-4.8 MCG/ACT aerosol Inhale 2 puffs every 12 (twelve) hours carvedilol (Coreg) 6.25 MG tablet Take 6.25 mg by mouth in the morning and 6.25 mg in the evening. Take with meals. celecoxib (CeleBREX) 200 MG capsule Take 1 capsule (200 mg) by mouth Daily 90 capsule 3 empagliflozin-metFORMIN (Synjardy) 12.5-1000 MG Take 1 tablet by mouth in the morning and 1 tablet in the evening. Take with meals. 90 tablet 7 fluticasone (Flonase) 50 MCG/ACT nasal spray Administer 1 spray into each nostril in the morning and 1 spray before bedtime. folic acid (Folvite) 1 MG tablet Take 1 tablet (1,000 mcg) by mouth Daily 90 tablet 1 glimepiride (Amaryl) 2 MG tablet Take 1 tablet (2 mg) by mouth in the morning and 1 tablet (2 mg) in the evening. Take with meals. 60 tablet 11 Multiple Vitamin (Multivitamin) tablet Take 1 tablet by mouth Daily [DISCONTINUED] SITagliptin (Januvia) 50 MG tablet Take 1 tablet (50 mg) by mouth Daily 90 tablet 3 [DISCONTINUED] Edxqjrgykda-Nsoxucpot-Kyasqz (Trelegy Ellipta) 100-62.5-25 MCG/ACT aerosol powder Inhale 1 puff Daily No current facility-administered medications on file prior to visit. I have reviewed and reconciled the history and medication list with the patient today. Allergies Allergen Reactions Penicillin G Unknown and Rash Social History Tobacco Use Smoking status: Former Current packs/day: 0.00 Average packs/day: 1.5 packs/day for 27.0 years (40.5 ttl pk-yrs) Types: Cigarettes Start date: 1972 Quit date: 1999 Years since quittin.8 Smokeless tobacco: Never Vaping Use Vaping status: Never Used Substance Use Topics Alcohol use: Not Currently Comment: caffeine intake: more than 4 cups per day coffee, soda Drug use: Never Family History Problem Relation Name Age of Onset COPD Mother Lung disease Mother Hypertension Father Heart disease Father Hypertension Sibling Heart disease Sibling Stroke Sibling Past Medical History: Diagnosis Date Afib (CMS/HCC) Biceps tendinosis of right shoulder 09/14/2017 Bursitis, Labral Tear Brachial neuritis or radiculitis 07/06/2017 Collapsed lung 2006 fx hip d/t fall Diabetes mellitus, type 2 (CMS/HCC) Disturbance of skin sensation 07/06/2017 Hypertension (CMS/HCC) LVH (left ventricular hypertrophy) 05/29/2023 Mitral regurgitation 05/29/2023 Nasal polyp Past Surgical History: Procedure Laterality Date APPENDECTOMY 1995 CATARACT EXTRACTION W/ INTRAOCULAR LENS IMPLANT CT ANGIOGRAM HEART CORONARY 02/05/2024 CT ANGIOGRAM TAVR 02/05/2024 ELBOW BURSA SURGERY Left 1977 elbow LUNG SURGERY 2006 collapsed lung, fx hip NASAL POLYP SURGERY 1998 bilat. nasal polypectomy and pansinusectomy, Avtar NASAL POLYP SURGERY x3 (85, 95, 97) OTHER SURGICAL HISTORY 2017 facial lesion SINUS SURGERY 01/13/2010 ant. ethmoidectomy, frontal sinusotomy, HHT VASECTOMY 1977 Visit Vitals BP 128/82 Pulse 79 Ht 5' 11 Wt 239 lb SpO2 97% BMI 33.33 kg/m Smoking Status Former BSA 2.33 m Review of Systems Constitutional: Negative for fatigue. Cardiovascular: Negative for chest pain. Objective Physical Exam Constitutional: General: He is not in acute distress. Appearance: He is normal weight. He is not ill-appearing. HENT: Head: Normocephalic. Cardiovascular: Rate and Rhythm: Rhythm irregular. Heart sounds: Normal heart sounds. No murmur heard. Pulmonary: Effort: Pulmonary effort is normal. Breath sounds: Normal breath sounds. Musculoskeletal: General: No swelling. Right lower leg: No edema. Left lower leg: No edema. Neurological: Mental Status: He is alert. Psychiatric: Mood and Affect: Mood normal. Thought Content: Thought content normal. Judgment: Judgment normal. Office Visit on 08/07/2024 Component Date Value Ref Range Status Hemoglobin A1C 08/07/2024 8.9 Final PSA, TOTAL 08/19/2024 0.62 < OR = 4.00 ng/mL Final Comment: The total PSA value from this assay system is standardized against the WHO standard. The test result will be approximately 20% lower when compared to the equimolar-standardized total PSA (Celeste Darell). Comparison of serial PSA results should be interpreted with this fact in mind. This test was performed using the Siemens chemiluminescent method. Values obtained from different assay methods cannot be used interchangeably. PSA levels, regardless of value, should not be interpreted as absolute evidence of the presence or absence of disease. WHITE BLOOD CELL COUNT 08/19/2024 5.8 3.8 - 10.8 Thousand/uL Final RED BLOOD CELL COUNT 08/19/2024 4.69 4.20 - 5.80 Million/uL Final HEMOGLOBIN 08/19/2024 14.4 13.2 - 17.1 g/dL Final HEMATOCRIT 08/19/2024 44.3 38.5 - 50.0 % Final MCV 08/19/2024 94.5 80.0 - 100.0 fL Final MCH 08/19/2024 30.7 27.0 - 33.0 pg Final MCHC 08/19/2024 32.5 32.0 - 36.0 g/dL Final Comment: For adults, a slight decrease in the calculated MCHC value (in the range of 30 to 32 g/dL) is most likely not clinically significant; however, it should be interpreted with caution in correlation with other red cell parameters and the patient's clinical condition. RDW 08/19/2024 12.9 11.0 - 15.0 % Final PLATELET COUNT 08/19/2024 225 140 - 400 Thousand/uL Final MPV 08/19/2024 11.6 7.5 - 12.5 fL Final ABSOLUTE NEUTROPHILS 08/19/2024 3,956 1,500 - 7,800 cells/uL Final ABSOLUTE LYMPHOCYTES 08/19/2024 1,067 850 - 3,900 cells/uL Final ABSOLUTE MONOCYTES 08/19/2024 551 200 - 950 cells/uL Final ABSOLUTE EOSINOPHILS 08/19/2024 174 15 - 500 cells/uL Final ABSOLUTE BASOPHILS 08/19/2024 52 0 - 200 cells/uL Final NEUTROPHILS 08/19/2024 68.2 % Final LYMPHOCYTES 08/19/2024 18.4 % Final MONOCYTES 08/19/2024 9.5 % Final EOSINOPHILS 08/19/2024 3.0 % Final BASOPHILS 08/19/2024 0.9 % Final Glucose 08/19/2024 384 (H) 65 - 99 mg/dL Final Comment: Fasting reference interval For someone without known diabetes, a glucose value >125 mg/dL indicates that they may have diabetes and this should be confirmed with a follow-up test. BUN 08/19/2024 21 7 - 25 mg/dL Final Creatinine 08/19/2024 1.35 (H) 0.70 - 1.28 mg/dL Final EGFR 08/19/2024 55 (L) > OR = 60 mL/min/1.73m2 Final BUN/CREATININE RATIO 08/19/2024 16 6 - 22 (calc) Final Sodium 08/19/2024 136 135 - 146 mmol/L Final Potassium, Bld 08/19/2024 5.0 3.5 - 5.3 mmol/L Final Chloride 08/19/2024 102 98 - 110 mmol/L Final Carbon Dioxide 08/19/2024 28 20 - 32 mmol/L Final Calcium 08/19/2024 9.5 8.6 - 10.3 mg/dL Final PROTEIN, TOTAL 08/19/2024 7.1 6.1 - 8.1 g/dL Final ALBUMIN 08/19/2024 4.5 3.6 - 5.1 g/dL Final GLOBULIN 08/19/2024 2.6 1.9 - 3.7 g/dL (calc) Final ALBUMIN/GLOBULIN RATIO 08/19/2024 1.7 1.0 - 2.5 (calc) Final BILIRUBIN, TOTAL 08/19/2024 0.5 0.2 - 1.2 mg/dL Final ALKALINE PHOSPHATASE 08/19/2024 111 35 - 144 U/L Final AST 08/19/2024 13 10 - 35 U/L Final ALT 08/19/2024 21 9 - 46 U/L Final CHOLESTEROL, TOTAL 08/19/2024 160 <200 mg/dL Final HDL CHOLESTEROL 08/19/2024 39 (L) > OR = 40 mg/dL Final TRIGLYCERIDES 08/19/2024 187 (H) <150 mg/dL Final LDL-CHOLESTEROL 08/19/2024 93 mg/dL (calc) Final Comment: Reference range: <100 Desirable range <100 mg/dL for primary prevention; <70 mg/dL for patients with CHD or diabetic patients with > or = 2 CHD risk factors. LDL-C is now calculated using the Kayden-Albright calculation, which is a validated novel method providing better accuracy than the Friedewald equation in the estimation of LDL-C. Kayden SS et al. MARK. 2013;310(90): 4173-5857 (http://education.NuFlick/faq/UAY091) CHOL/HDLC RATIO 08/19/2024 4.1 <5.0 (calc) Final NON HDL CHOLESTEROL 08/19/2024 121 <130 mg/dL (calc) Final Comment: For patients with diabetes plus 1 major ASCVD risk factor, treating to a non-HDL-C goal of <100 mg/dL (LDL-C of <70 mg/dL) is considered a therapeutic option. Clinisync Result Encounter on 07/31/2024 Component Date Value Ref Range Status SODIUM 07/31/2024 132 (L) 136 - 145 mmol/L Final POTASSIUM 07/31/2024 4.7 3.5 - 5.1 mmol/L Final CHLORIDE 07/31/2024 99 98 - 107 mmol/L Final CARBON DIOXIDE 07/31/2024 27.9 21.0 - 32.0 mmol/L Final ANION GAP 07/31/2024 9.8 Final GLUCOSE 07/31/2024 349 (H) 74 - 106 mg/dL Final BLOOD UREA NITROGEN 07/31/2024 23.0 (H) 7.0 - 18.0 mg/dL Final CREATININE 07/31/2024 1.39 (H) 0.70 - 1.30 mg/dL Final TBH EGFR-AF HAITIAN 07/31/2024 >60 >=60 Final TBH EGFR-NON AF HAITIAN 07/31/2024 50 (L) >=60 Final BUN CREATININE RATIO 07/31/2024 16.5 Final CALCIUM 07/31/2024 9.6 8.5 - 10.1 mg/dL Final Assessment/Plan Diagnoses and all orders for this visit: Uncontrolled type 2 diabetes mellitus with hyperglycemia (CMS/HCC) - He has been taking Synjardy qAM, not bid as directed. Will start bid. A1C on RTC in 2 months. Diabetic peripheral neuropathy associated with type 2 diabetes mellitus (CMS/HCC) Xzvla-5-ynjqcmsvgnb deficiency (CMS/HCC) - Per Dr Baer. He is receiving infusions for this. Type 2 diabetes mellitus with diabetic chronic kidney disease (CMS/HCC) Chronic kidney disease, stage 3a (HCC) (CMS/HCC) - Stable. 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 documented in this encounter [facility] 09-08-2024 Hospital Discharge instructions Follow Up Care 09/08/2024 11:39:31 With:Aj BUSH, Serenity Urbina, MED, ONC Address: When: Unknown Comments:Labs today.24 hour urine tests.RTC in 3 weeks for results. [facility] 08-14-2024 Telephone encounter Note Pt calls stating that at last visit it was not discussed as to whether or not pt should stay on amantadine and states that the PCP says he should if he is to cont the med needs a new rx sent. She also states that the Folic Acid was sent to local pharmacy and needs to be sent to [facility]. Notes that B 12 rx was never sent. Please clarify what meds and doses the pt is to be on and send back for me to send to proper pharmacies. Thank you [facility] 08-14-2024 Miscellaneous Notes Pt calls stating that at last visit it was not discussed as to whether or not pt should stay on amantadine and states that the PCP says he should if he is to cont the med needs a new rx sent. She also states that the Folic Acid was sent to local pharmacy and needs to be sent to [facility]. Notes that B 12 rx was never sent. Please clarify what meds and doses the pt is to be on and send back for me to send to proper pharmacies. Thank you documented in this encounter [facility] 08-07-2024 History of Present illness Narrative Images from the original note were not included. HPI Med Refill Additional comments: Glimepiride,januvia,celebrex-- [facility] Last edited by Sandra Jordan LPN on 08/07/2024 11:28 AM. Subjective Patient ID: Vinayak Madrigal is a 74 y.o. male who presents for Hypertension, Diabetes, and Med Refill (Glimepiride,januvia,celebrex-- [facility]). Diabetes Mellitus Patient presents for follow up of diabetes. Current symptoms include: none. Patient denies foot ulcerations, hypoglycemia , polydipsia, polyuria, and visual disturbances. Evaluation to date has included: fasting blood sugar, fasting lipid panel, hemoglobin A1C, and microalbuminuria. Home sugars: BGs range between 250 and 300 Hypertension Pertinent negatives include no chest pain. Diabetes Pertinent negatives for diabetes include no chest pain and no fatigue. Med Refill Pertinent negatives include no chest pain or fatigue. Current Outpatient Medications on File Prior to Visit Medication Sig Dispense Refill amLODIPine (Norvasc) 5 MG tablet Take 5 mg by mouth in the morning. apixaban (Eliquis) 5 MG tablet TAKE 1 TABLET TWICE A DAY 200 tablet 3 atorvastatin (Lipitor) 40 MG tablet Take 40 mg by mouth in the morning. benazepril (Lotensin) 40 MG tablet Take 40 mg by mouth in the morning. carvedilol (Coreg) 6.25 MG tablet Take 6.25 mg by mouth in the morning and 6.25 mg in the evening. Take with meals. fluticasone (Flonase) 50 MCG/ACT nasal spray Administer 1 spray into each nostril in the morning and 1 spray before bedtime. Fhlhcvizkuq-Wkossklej-Lflivr (Trelegy Ellipta) 100-62.5-25 MCG/ACT aerosol powder Inhale 1 puff Daily Multiple Vitamin (Multivitamin) tablet Take 1 tablet by mouth Daily [DISCONTINUED] folic acid (Folvite) 1 MG tablet Take 1 tablet (1 mg) by mouth Daily 30 tablet 2 No current facility-administered medications on file prior to visit. I have reviewed and reconciled the history and medication list with the patient today. Allergies Allergen Reactions Penicillin G Unknown and Rash Social History Tobacco Use Smoking status: Former Current packs/day: 0.00 Average packs/day: 1.5 packs/day for 27.0 years (40.5 ttl pk-yrs) Types: Cigarettes Start date: 1972 Quit date: 2000 Years since quittin.7 Smokeless tobacco: Never Vaping Use Vaping status: Never Used Substance Use Topics Alcohol use: Not Currently Comment: caffeine intake: more than 4 cups per day coffee, soda Drug use: Never Family History Problem Relation Name Age of Onset COPD Mother Lung disease Mother Hypertension Father Heart disease Father Hypertension Sibling Heart disease Sibling Stroke Sibling Past Medical History: Diagnosis Date Afib (CMS/HCC) Biceps tendinosis of right shoulder 09/14/2017 Bursitis, Labral Tear Brachial neuritis or radiculitis 07/06/2017 Collapsed lung 2005 fx hip d/t fall Diabetes mellitus, type 2 (CMS/HCC) Disturbance of skin sensation 07/06/2017 Hypertension (CMS/HCC) LVH (left ventricular hypertrophy) 05/29/2023 Mitral regurgitation 05/29/2023 Nasal polyp Past Surgical History: Procedure Laterality Date APPENDECTOMY 1995 CATARACT EXTRACTION W/ INTRAOCULAR LENS IMPLANT CT ANGIOGRAM HEART CORONARY 02/05/2024 CT ANGIOGRAM TAVR 02/05/2024 ELBOW BURSA SURGERY Left 1977 elbow LUNG SURGERY 2006 collapsed lung, fx hip NASAL POLYP SURGERY 1998 bilat. nasal polypectomy and pansinusectomy, Avtar NASAL POLYP SURGERY x3 (85, 95, 97) OTHER SURGICAL HISTORY 2018 facial lesion SINUS SURGERY 01/13/2010 ant. ethmoidectomy, frontal sinusotomy, HHT VASECTOMY 1978 Visit Vitals BP 134/76 Pulse 65 Ht 5' 11 Wt 241 lb SpO2 94% BMI 33.61 kg/m Smoking Status Former BSA 2.34 m Review of Systems Constitutional: Negative for fatigue. Cardiovascular: Negative for chest pain. Objective Physical Exam Constitutional: General: He is not in acute distress. Appearance: He is normal weight. He is not ill-appearing. HENT: Head: Normocephalic. Cardiovascular: Rate and Rhythm: Rhythm irregular. Heart sounds: Normal heart sounds. No murmur heard. Pulmonary: Effort: Pulmonary effort is normal. Breath sounds: Normal breath sounds. Musculoskeletal: General: No swelling. Right lower leg: No edema. Left lower leg: No edema. Neurological: Mental Status: He is alert. Psychiatric: Mood and Affect: Mood normal. Thought Content: Thought content normal. Judgment: Judgment normal. Office Visit on 08/07/2024 Component Date Value Ref Range Status Hemoglobin A1C 08/07/2024 8.9 Final Clinisync Result Encounter on 07/31/2024 Component Date Value Ref Range Status SODIUM 07/31/2024 132 (L) 136 - 145 mmol/L Final POTASSIUM 07/31/2024 4.7 3.5 - 5.1 mmol/L Final CHLORIDE 07/31/2024 99 98 - 107 mmol/L Final CARBON DIOXIDE 07/31/2024 27.9 21.0 - 32.0 mmol/L Final ANION GAP 07/31/2024 9.8 Final GLUCOSE 07/31/2024 349 (H) 74 - 106 mg/dL Final BLOOD UREA NITROGEN 07/31/2024 23.0 (H) 7.0 - 18.0 mg/dL Final CREATININE 07/31/2024 1.39 (H) 0.70 - 1.30 mg/dL Final TBH EGFR-AF HAITIAN 07/31/2024 >60 >=60 Final TBH EGFR-NON AF HAITIAN 07/31/2024 50 (L) >=60 Final BUN CREATININE RATIO 07/31/2024 16.5 Final CALCIUM 07/31/2024 9.6 8.5 - 10.1 mg/dL Final Assessment/Plan Diagnoses and all orders for this visit: Diabetic peripheral neuropathy associated with type 2 diabetes mellitus ([facility]) Uncontrolled type 2 diabetes mellitus with hyperglycemia ([facility]) - POCT Glycated hemoglobin, total - CBC and differential - Comprehensive metabolic panel; Future - Restart medications (he had run out) Type 2 diabetes mellitus with hyperglycemia, without long-term current use of insulin ([facility]) - empagliflozin-metFORMIN (Synjardy) 12.5-1000 MG; Take 1 tablet by mouth in the morning and 1 tablet in the evening. Take with meals. - glimepiride (Amaryl) 2 MG tablet; Take 1 tablet (2 mg) by mouth in the morning and 1 tablet (2 mg) in the evening. Take with meals. - Microalbumin / creatinine urine ratio Displacement of cervical intervertebral disc Memory loss Tremor Parkinsonism, unspecified Parkinsonism type ([facility]/HCC) Mixed hyperlipidemia ([facility]) - Lipid panel; Future Primary hypertension ([facility]) LVH (left ventricular hypertrophy) Prostate cancer screening - PSA Follow up in about 4 weeks (around 09/04/2024) for Test/Lab Review, F/U med changes. documented in this encounter [facility] 07-28-2024 History of Present illness Narrative Subjective Pt. Is here with his . He stopped the amiodarone per cardiology as his A-fib is doing better since his ablation. The live out nanny wanted to stop the amiodarone and see if that helped with the tremor before trying the betablocker. States the tremors are mainly in the hands/arms. His states he even tremor when he is sleeping. At times interfere with his drinking but not as much with his eating. He is resorted to using tumblers with a lid on him. It does interfere with him signing his name and it can be an issue with his online banking as his signature used to be rather neat. He states that it is so bad that he is almost unable to use his cell phone. His live out nanny does not want him to stop any other of his medication. He states that his memory is worse. states he can remember things from 15 years ago but not from an hour ago. He scored 27/30 on his MMSE at his initial visit. He also states he's been having an increase in balance issues. This is increase when he is standing up from sitting. He is not exercising. He knows he needs to do it. states that it is hard to get him off of the love seat. He watches TV and reads. He is not exercising. He just does not do it. Past Medical History: Diagnosis Date Afib (CMS/HCC) Biceps tendinosis of right shoulder 09/14/2017 Bursitis, Labral Tear Brachial neuritis or radiculitis 07/06/2017 Collapsed lung 2005 fx hip d/t fall Diabetes mellitus, type 2 (CMS/HCC) Disturbance of skin sensation 07/06/2017 Hypertension (CMS/HCC) LVH (left ventricular hypertrophy) 05/29/2023 Mitral regurgitation 05/29/2023 Nasal polyp Past Surgical History: Procedure Laterality Date APPENDECTOMY 1995 CATARACT EXTRACTION W/ INTRAOCULAR LENS IMPLANT CT ANGIOGRAM HEART CORONARY 02/05/2024 CT ANGIOGRAM TAVR 02/05/2024 ELBOW BURSA SURGERY Left 1977 elbow LUNG SURGERY 2006 collapsed lung, fx hip NASAL POLYP SURGERY 1998 bilat. nasal polypectomy and pansinusectomy, Avtar NASAL POLYP SURGERY x3 (85, 95, 97) OTHER SURGICAL HISTORY 2018 facial lesion SINUS SURGERY 01/13/2010 ant. ethmoidectomy, frontal sinusotomy, HHT VASECTOMY 1977 Family History Problem Relation Name Age of Onset COPD Mother Lung disease Mother Hypertension Father Heart disease Father Hypertension Sibling Heart disease Sibling Stroke Sibling Social History Tobacco Use Smoking status: Former Current packs/day: 0.00 Average packs/day: 1.5 packs/day for 27.0 years (40.5 ttl pk-yrs) Types: Cigarettes Start date: 1972 Quit date: 1999 Years since quittin.7 Smokeless tobacco: Never Substance Use Topics Alcohol use: Not Currently Comment: caffeine intake: more than 4 cups per day coffee, soda Allergies: Penicillin g General: No fever or chills HEENT: No nasal congestion or runny nose Pulmonary: No shortness of breath or cough Cardiovascular: No chest pain or palpitations GI: No nausea or vomiting : No dysuria or hematuria Musculoskeletal: No new aches or pains or muscle weakness Infectious: no recurrent fevers or infections Dermatologic: No rashes or skin lesions Neurologic: No new headaches or dizziness other than in HPI Vitals: 07/28/24 1539 BP: 142/80 There is no height or weight on file to calculate BMI. Neurologic exam: Mental status: Awake, alert to person, place and time. Recent and remote memory are intact. Attention and concentration are normal. Fund of knowledge is appropriate for level of education. HEENT: NC/AT Cranial nerves: CN II: Visual acuity is normal. Visual parks full to confrontation. CN III, IV, : pupils equal round and reactive to light. Extraocular movements intact. No ptosis present. CN V: Facial sensation is normal. CN VII: Full and symmetric facial movement. CN VIII: Hearing is normal to finger rub bilaterally: CN IX and X: Palate elevates symmetrically. Normal gag reflex. CN XI: Shoulder shrug is normal bilaterally. CN XII: Tongue is midline without atrophy or fasciculation. Speech: Clear and fluent no aphasia or dysarthria Pronator drift: Negative bilateral upper extremity Coordination: Intact, no signs of dysmetria Good finger to nose and rapid alternating movements Sensory: Sensation is intact to light, temperature and light touch throughout four extremities. Vibratory sensation decreased in a stocking distribution Motor: LUE 5/5 RUE 5/5 LLE 5/5 RLE 5/5 Tone: Mild tremor and right upper extremity antigravity and tension, left resting tremor and tremor with walking, no rigidity or bradykinesia Worse when held in an antigravity or intension position for extended time. DTR: Geo Biceps, BR 2/4 Geo Patellar 2/4 Geo Achilles 1/4 Gait: Normal to casual gait, difficulty with tandem gait, turns slightly En bloc Romberg's Positive TESTING: EMG showed a severe sensory motor neuropathy likely due to the diabetes EEG was within normal limits CT of the head showed Some small-vessel changes but was otherwise nonacute Assessment/Plan Diagnoses and all orders for this visit: Tremor Parkinsonism, unspecified Parkinsonism type (CMS/HCC) Essential tremor Diabetic peripheral neuropathy associated with type 2 diabetes mellitus (CMS/HCC) Memory loss Numbness and tingling Balance disorder 73-year-old male with a mixed tremor. On the right he has more of an essential tremor on the left he has a very mild parkinsonism. Amantadine did not help. He is on Eliquis so he can not have primidone as it is an enzyme inducer. We did have him take a note to Cardiology to see if he could do a low dose of beta-raquel such as Inderal [place]. At that time they wanted to take him off of the amiodarone 1st and see if that helps the tremor. It has not. He has an appointment with them on and I am hopeful that to go on Inderal at that point in time. However if his Afib is controlled and they take him off of Eliquis then we certainly could add in the Mysoline at that point in time. At this time the patient is not exhibiting any other features of Parkinson's disease other than the left upper extremity tremor at rest and with walking. There is no rigidity or Bradykinesia. He continues to complain of some mild memory loss however at this time appears to be more of a mild cognitive impairment and some mild forgetfulness but is not overall affecting his day-to-day functioning. HE is overall functioning well. His last MMSE was 27/30. We will monitor this over time. 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 This was seen on his EMG. He has balance issues and gait ataxia from it. He is still not exercising. Labs were normal. TSH 4.341, B12 163 folic acid 8 Sleep apnea reports compliance with the CPAP machine. We see him in the sleep clinic for that. Plan: He has apt with cardio on and can ask again about the inderal Jaun can not have primidone due to the Eliquis for Afib- unless he gets taken off since he had the ablasion Labs wnl Brain exercises. Cardiovascular exercise. He needs to be much more aggressive with exercise Mediterranean diet. 8 hours of sleep. 12 hour fasting through the night if able. Regular exercise Last visit MMSE / Repeat MMSE at next visit Call and let us know what cardio says and can consider a trial of Sinemet Use the CPAP machine every night. The diagnosis was all discussed with the patient. All questions were answered and they agreed with the treatment plan. Patient will call if there are any new issues or questions. Pt has been fully educated on their diagnosis, treatment options, follow up plan, and return instructions Return to clinic: 3 weeks documented in this encounter [facility] Evaluation + Plan note Future Appointments Appointment Date:10/13/2024 10:20:00 AM Scheduled Provider:Serenity Rocha MD Location:[facility]ONCOLOGY Appointment Type:ONC Office Visit 20 ([facility]) Future Scheduled TestsLab Miscellaneous-LC 09/23/24Lab Miscellaneous-LC 09/23/24 [facility] Evaluation + Plan note Future Appointments Appointment Date:10/13/2024 10:20:00 AM Scheduled Provider:Serenity Rocha MD Location:[facility]ONCOLOGY Appointment Type:ONC Office Visit 20 (FT) Diagnostic Tests PendingHepatitis B Surface Antigen 09/22/24epatitis B Surface Antibody 09/22/24epatitis A Antibody IgM 09/22/24Free K+L Lt Chains,Qn,S 09/22/24Rheumatoid Factor Quantitative 09/22/24ANA w/Reflex if POS 09/22/24Angiotensin Converting Enzyme 09/22/24Beta 2 Microglobulin 09/22/24Comp panel: Leuk/Lym [id number] 09/22/24IFE and PE, Serum 09/22/24CV Antibody RFX to Quant PCR 09/22/24Lead, Adult 09/22/24Copper Level 09/22/24Alpha Fetoprotein Tumor Marker 09/22/24ep B Core Ab, IgM 09/22/24IV Screen 4th Generation wRfx 09/22/24CA 19-9 09/22/24IgE, Quant 09/22/24 Future Scheduled TestsLab Miscellaneous-LC 09/23/24Lab Miscellaneous-LC 09/23/24 [facility] Evaluation + Plan note Future Appointments Appointment Date:10/13/2024 10:20:00 AM Scheduled Provider:Aj BUSH, Serenity Urbina Location:.ONCOLOGY Appointment Type:ONC Office Visit 20 (FT) [facility] Evaluation note Diagnosis Memory loss Tremor Abnormal involuntary movements Parkinsonism, unspecified Parkinsonism type (CMS/HCC) B12 deficiency Folic acid deficiency Other B-complex deficiencies documented in this encounter [facility] HealthcareEvaluation note* Diagnosis Diabetic peripheral neuropathy associated with type 2 diabetes mellitus (CMS/HCC)- Primary Uncontrolled type 2 diabetes mellitus with hyperglycemia (CMS/HCC) Type 2 diabetes mellitus with hyperglycemia, without long-term current use of insulin (CMS/HCC) 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 without myelopathy Memory loss Tremor Abnormal involuntary movements Parkinsonism, unspecified Parkinsonism type (CMS/HCC) Mixed hyperlipidemia (CMS/HCC) Mixed hyperlipidemia Primary hypertension (CMS/HCC) Unspecified essential hypertension LVH (left ventricular hypertrophy) Cardiomegaly Prostate cancer screening Special screening for malignant neoplasm of prostate documented in this encounter [facility] HealthcareEvaluation note* Diagnosis Uncontrolled type 2 diabetes mellitus with hyperglycemia (CMS/HCC)- Primary Diabetic peripheral neuropathy associated with type 2 diabetes mellitus (CMS/HCC) Xohax-9-phdfijcksux deficiency (CMS/HCC) Qmbgi-2-zyttuxlboug deficiency Type 2 diabetes mellitus with diabetic chronic kidney disease (CMS/HCC) Chronic kidney disease, stage 3a (HCC) (CMS/HCC) Abdominal aortic aneurysm, without rupture, unspecified (CMS/HCC) Emphysema due to fiueq-9-hhgjirhonhz deficiency (CMS/HCC) Other emphysema documented in this encounter [facility] HealthcareEvaluation note* Diagnosis Left foot drop- Primary Other acquired deformity of ankle and foot Parkinsonism, unspecified Parkinsonism type (CMS/HCC) Essential tremor Diabetic peripheral neuropathy associated with type 2 diabetes mellitus (CMS/HCC) B12 deficiency Numbness and tingling Disturbance of skin sensation Memory loss documented in this encounter [facility] HealthcareEvaluation note* Diagnosis Tremor- Primary Abnormal involuntary movements Parkinsonism, unspecified Parkinsonism type (CMS/HCC) Essential tremor Diabetic peripheral neuropathy associated with type 2 diabetes mellitus (CMS/HCC) Memory loss Numbness and tingling Disturbance of skin sensation Balance disorder documented in this encounter [facility] HealthcareEvaluation note* Diagnosis Tremor- Primary Abnormal involuntary movements Left foot drop Other acquired deformity of ankle and foot Memory loss Numbness and tingling Disturbance of skin sensation B12 deficiency Folic acid deficiency Other B-complex deficiencies JESS (obstructive sleep apnea) Obstructive sleep apnea (adult) (pediatric) documented in this encounter [facility] HealthcareEvaluation note* Diagnosis Type 2 diabetes mellitus with hyperglycemia, without long-term current use of insulin (CMS/HCC) Tvfks-8-wkcneozfnsy deficiency (CMS/HCC) Marbe-2-lsnalfwcdpf deficiency Other emphysema (CMS/HCC) Other emphysema Parkinsonism, unspecified (CMS/HCC) Type 2 diabetes mellitus with diabetic chronic kidney disease (CMS/HCC) Chronic kidney disease, stage 3a (HCC) (CMS/HCC) Paroxysmal atrial fibrillation (CMS/HCC) Atrial fibrillation Type 2 diabetes mellitus with diabetic neuropathy, unspecified (CMS/HCC) documented in this encounter [facility] HealthcareEvaluation note* Diagnosis Routine general medical examination at health care facility- Primary Routine general medical examination at a health care facility ACP (advance care planning) Other specified counseling Encounter for immunization Type 2 diabetes mellitus with diabetic neuropathy, without long-term current use of insulin (HCC) Paroxysmal atrial fibrillation (HCC) Atrial fibrillation Mixed hyperlipidemia Mixed hyperlipidemia Primary hypertension Unspecified essential hypertension Emphysema due to mdpff-3-bsqahpidenc deficiency (HCC) Other emphysema Diastolic dysfunction Unspecified heart disease Benign essential hypertension Essential hypertension, benign Prostate cancer screening Special screening for malignant neoplasm of prostate Degeneration of intervertebral disc of lumbar region with discogenic back pain and lower extremity pain Memory loss documented in this encounter [facility] HealthcareHospital course Narrative No data available for this section [facility] Discharge instructions No data available for this section [facility] Progress note No data available for this section [facility] Summary Purpose Family History No Family History Records FoundNo Family History Records Found No data available for this section No data available for this section No Family History Records FoundNo Family History Records FoundNo Family History Records FoundNo Family History Records FoundNo Family History Records FoundNo Family History Records FoundNo Family History Records FoundNo Family History Records Found No data available for this section No Family History Records FoundNo Family History [...] History Records FoundNo Family History Records Found No data available for this section No Family History Records FoundNo Family History [...] Records FoundNo Advanced Directives Records FoundNo Advanced Directiv es Records FoundNo Advanced Directives Records FoundNo Advanced Directives Records FoundNo AdvancedDirectives Records FoundNo Advanced Directives Records FoundNo Advanced [...] section and content) DATE CREATED AUTHOR 07/30/2018 [facility] DATE CREATED AUTHOR AUTHOR'S ORGANIZ ATION 01/10/2023 [facility] DATE CREATED AUTHOR AUTHOR'S ORGANIZ ATION 09/24/2024 Alvarez [place] [facility] DATE CREATED AUTHOR AUTHOR'S ORGANIZ ATION 09/28/2024 Alvarez Sergei [facility] DATE CREATED AUTHOR AUTHOR'S ORGANIZ ATION 10/02/2024 [facility] [place] [facility] DATE CREATED AUTHOR AUTHOR'S ORGANIZ ATION 10/04/2024 Alvarez [place] [facility] DATE CREATED AUTHOR AUTHOR'S ORGANIZ ATION 10/07/2024 Alvarez [place] [facility] DATE CREATED AUTHOR AUTHOR'S ORGANIZ ATION 10/24/2024 Alvarez Sergei [facility] DATE CREATED AUTHOR AUTHOR'S ORGANIZ ATION 11/18/2024 [facility] DATE CREATED AUTHOR AUTHOR'S ORGANIZ ATION 07/27/2025 [facility] EPIC DATE CREATED AUTHOR AUTHOR'S ORGANIZ ATION 08/11/2025 [facility] Care Teams (unrecognized sec tion and content) Configuration Management Architect Relationship Specialty Start Date End Date Antony Zamarripa MD [address] [place] [address] PCP - General Internal Medicine 03/13/23 Antony Zamarripa MD [address] [place] [address] PCP - ACO Reach 01/04/24 Configuration Management Architect Relationship Specialty Start Date End Date Antony Zamarripa MD [address] [place] [address] PCP - General Internal Medicine 03/13/23 Antony Zamarripa MD [address] [place] [address] PCP - ACO Reach 01/04/24 Configuration Management Architect Relationship Specialty Start Date End Date Antony Zamarripa MD [address] [place] [address] PCP - General Internal Medicine 03/13/23 Antony Zamarripa MD [address] [place] [address] PCP - ACO Reach 01/04/24 Configuration Management Architect Relationship Specialty Start Date End Date Antony Zamarripa MD [address] [place] [address] PCP - General Internal Medicine 03/13/23 Antony Zamarripa MD [address] [place] [address] PCP - ACO Reach 01/04/24 Configuration Management Architect Relationship Specialty Start Date End Date Antony Zamarripa MD [address] [place] [address] PCP - General Internal Medicine 03/13/23 Antony Zamarripa MD [address] [place] [address] PCP - ACO Reach 01/04/24 Configuration Management Architect Relationship Specialty Start Date End Date Antony Zamarripa MD [address] [place] [address] PCP - General Internal Medicine 03/13/23 Antony Zamarripa MD [address] [place] [address] PCP - ACO Reach 01/04/24 Configuration Management Architect Relationship Specialty Start Date End Date Antony Zamarripa MD [address] [place] [address] PCP - General Internal Medicine 03/13/23 Antony Zamarripa MD [address] [place] [address] PCP - ACO Reach 01/04/24 Configuration Management Architect Relationship Specialty Start Date End Date Antony Zamarripa MD [address] [place] [address] PCP - General Internal Medicine 03/13/23 Antony Zamarripa MD [address] [place] [address] PCP - ACO Reach 01/04/24 Configuration Management Architect Relationship Specialty Start Date End Date Antony Zamarripa MD [address] [place] [address] PCP - General Internal Medicine 03/13/23 Antony Zamarripa MD [address] [place] [address] PCP - ACO Reach 01/04/24 Configuration Management Architect Relationship Specialty Start Date End Date Antony Zamarripa MD [address] [place] [address] PCP - General Internal Medicine 03/13/23 Antony Zamarripa MD [address] [place] [address] PCP - ACO Reach 01/04/24 Configuration Management Architect Relationship Specialty Start Date End Date Antony Zamarripa MD [address] [place] [address] PCP - General Internal Medicine 03/13/23 Antony Zamarripa MD [address] [place] [address] PCP - ACO Reach 01/04/24 Reason for Visit (unrecogniz ed section and content) Reason Comments Hypertension Diabetes Med Refill Glimepiride,januvia, celebrex-- [facility] Reason Comments Diabetes Results Lab results Reason Comments Tremors Memory Loss Peripheral Neuropathy Reason Comments Peripheral Neuropathy Memory Loss Reason Comments Tremors Memory Loss idiopathic peripheral neuropathy Reason Comments Diabetes Reason Comments Medicare Annual Wellness Visit Subsequen t FOR RECORDS PERTAINING TO PATIENTS WHO ARE [...] BE BASED ON THE PRIMARY CLINICAL RECORDS. [facility] provides no warranty or guarantee of the accuracy or completeness of information in this document.
== END 2025-08-13 08:38 | disposition home or self-care (01) ==
LOC: CARD 08:37
PROVIDERS: PCP Internal Medicine; Visit Provider Internal Medicine Cardiovascular Disease
DX: I34.0 Nonrheumatic mitral (valve) insufficiency (principal)
CPT/HCPCS: 93306

== ENCOUNTER 2025-09-02 10:51 | Outpatient (RCR) | payer MEDICARE, OTHER, SELFPAY ==
[2025-08-05 11:00] VITALS: BP 136/94; PULSE 103; TEMP 36.6; O2SAT 94
[2025-08-05] MEDS: ALPHA-1-PROTEINASE INHIBITOR 6,522 MG in EMPTY BAG 0 ML 260.88 MG IV (11:04)
[2025-08-12 10:50] VITALS: BP 166/74; PULSE 55; TEMP 36.6; O2SAT 94
[2025-08-12] MEDS: ALPHA-1-PROTEINASE INHIBITOR 6,522 MG in EMPTY BAG 0 ML 240 MG IV (11:01)
[2025-08-19 11:00] VITALS: BP 144/82; PULSE 75; TEMP 36.7; O2SAT 93
[2025-08-19] MEDS: PROTEINASE INHIBITOR IV (11:05)
[2025-08-19] MEDS: ALPHA IV (11:05)
[2025-09-02 10:55] VITALS: BP 130/73; PULSE 73; TEMP 36.2; O2SAT 92
[2025-09-02] MEDS: ALPHA IV (10:59)
[2025-09-02] MEDS: PROTEINASE INHIBITOR IV (10:59)
== END 2025-09-04 23:59 | disposition home or self-care (01) ==
LOC: INF 10:51
PROVIDERS: PCP Internal Medicine; Visit Provider Internal Medicine
DX: E88.01 Alpha-1-antitrypsin deficiency (principal); J43.2 Centrilobular emphysema
CPT/HCPCS: 96365; J0256

== ENCOUNTER 2025-09-17 05:09 | Inpatient (IN) | payer MEDICARE, OTHER, SELFPAY ==
--- OUTSIDE RECORDS SUMMARY | 2024-07-23 03:30 | XMS_ITS ---
Author Organization [facility] in [place] Address [address] [address] Care Team Providers Care Acupressurist Name Role Phone Dallin BUSH, Antony Primary Care Provider Unavailab shawn Juan Gigi Unavailable [phone] REASON FOR VISIT Discuss AAT(MZ)-Prolastin Encounters Encounter Location Date Provider Diagnosis Pulmonary Medicine [place] [address] [place] [address] 07/23/2024 Gigi Singleton Plan Of Treatment No Information Progress Notes * Lucio MADRIGAL WDOB:1950 ( 75 yo M)Acc No.[id number]:07/23/2024 UNLOCKED PROGRESS NOTE Follow Up Patient: Lucio MCLAIN :?Gigi Singleton, DODOB:1950???Age:73 Y ???Sex:MaleDate:07/23/2024hone:[phone]:[address] [place] [id number]:Antony Zamarripa MD Subjective: * Chief Complaints: * 1 . Discuss AAT(MZ)-Prolastin. * Medical History: Objective: * Vitals: Assessment: Plan: * Treatment: * * Electronic signature of Gigi Singleton DO on 09/18/2025 at 06:48 AM ESTSign off status: PendingVisit Status:?R/S By O/P (Rescheduled by Office/Provider) * Provider: Ruben Singleton DO Date: 0 07/23/2024 Generated for Printing/Faxing/eTransmitting on:?09/18/2025 06:48 AM EST
--- OUTSIDE RECORDS SUMMARY | 2024-07-23 03:30 | XMS_ITS ---
Author Organization [facility] in [place] Address [address] [address] Care Team Providers Care Office Mail Clerk Name Role Phone Dallin BUSH, Antony Primary Care Provider Unavailab shawn Juan Gigi Unavailable [phone] REASON FOR VISIT Discuss AAT(MZ)-Prolastin Encounters Encounter Location Date Provider Diagnosis Pulmonary Medicine [place] [address] [place] [address] 07/23/2024 Gigi Singleton Plan Of Treatment No Information Progress Notes * Lucio MADRIGAL WDOB:1950 ( 75 yo M)Acc No.[id number]:07/23/2024 UNLOCKED PROGRESS NOTE Follow Up Patient: Lucio MCLAIN :?Gigi Singleton, DODOB:1950???Age:73 Y ???Sex:MaleDate:07/23/2024hone:[phone]:[address] [place] [phone]:Antony Zamarripa MD Subjective: * Chief Complaints: * 1 . Discuss AAT(MZ)-Prolastin. * Medical History: Objective: * Vitals: Assessment: Plan: * Treatment: * * Electronic signature of Gigi Singleton DO on 09/17/2025 at 05:27 AM ESTSign off status: PendingVisit Status:?R/S By O/P (Rescheduled by Office/Provider) * Provider: Ruben Singleton DO Date: 0 07/23/2024 Generated for Printing/Faxing/eTransmitting on:?09/17/2025 05:27 AM EST
--- OUTSIDE RECORDS SUMMARY | 2024-08-19 05:00 | XMS_ITS ---
Author Organization The [facility] in [place] Address [address] [place] [address] Care Team Providers Care Core Java Software Engineer Name Role Phone Dallin BUSH, Antony Primary Care Provider Unavailab shawn Juan Gigi Unavailable [phone] REASON FOR VISIT 3 mos f/u Encounters Encounter Location Date Provider Diagnosis Pulmonary Medicine [place] [address] [place] [address] 08/19/2024 Gigi Singleton Plan Of Treatment No Information Progress Notes * Lucio MADRIGAL WDOB:1950 ( 75 yo M)Acc No.[id number]:08/19/2024 UNLOCKED PROGRESS NOTE Follow Up Patient: Lucio MCLAIN :?Gigi Singleton, DODOB:1950???Age:74 Y ???Sex:MaleDate:08/19/2024hone:[phone]:[address]Pcp:Antony Zamarripa MD Subjective: * Chief Complaints: * 1 . 3 mos f/u. * Medical History: Objective: * Vitals: Assessment: Plan: * Treatment: * * Electronic signature of Gigi Singleton DO on 09/17/2025 at 05:27 AM ESTSign off status: PendingVisit Status:?R/S (Rescheduled) * Provider: Ruben Singleton DO Date: 1 Generated for Printing/Faxing/eTransmitting on:?09/17/2025 05:27 AM EST
--- OUTSIDE RECORDS SUMMARY | 2024-08-19 05:00 | XMS_ITS ---
Author Organization The [facility] in [place] Address [address] [place] [address] Care Team Providers Care Public Address System Mechanic Name Role Phone Dallin BUSH, Antony Primary Care Provider Unavailab shawn Juan Gigi Unavailable [phone] REASON FOR VISIT 3 mos f/u Encounters Encounter Location Date Provider Diagnosis Pulmonary Medicine [place] [address] [place] [address] 08/19/2024 Gigi Singleton Plan Of Treatment No Information Progress Notes * Lucio MADRIGAL WDOB:1950 ( 75 yo M)Acc No.[id number]:08/19/2024 UNLOCKED PROGRESS NOTE Follow Up Patient: Lucio MCLAIN :?Gigi Singleton, DODOB:1950???Age:74 Y ???Sex:MaleDate:08/19/2024hone:[phone]:[address]-[address]Pcp:Antony Zamarripa MD Subjective: * Chief Complaints: * 1 . 3 mos f/u. * Medical History: Objective: * Vitals: Assessment: Plan: * Treatment: * * Electronic signature of Gigi Singleton DO on 09/18/2025 at 06:48 AM ESTSign off status: PendingVisit Status:?R/S (Rescheduled) * Provider: Ruben Singleton DO Date: 1 Generated for Printing/Faxing/eTransmitting on:?09/18/2025 06:48 AM EST
--- OUTSIDE RECORDS SUMMARY | 2025-05-14 05:00 | XMS_ITS ---
Author Organization The 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 He reports no symptoms with Breztri use, and is not using any albuterol. He voiced he likes Breztri and wishes to remain on it. ContinueBreztri for now. Continue Prolastin therapy. 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 Discussed repeating PFT in May for a 1 year F/U to determine if Prolastin is having any benefit and also if any progression of fibrosis. He voiced agreement. 05/14/2025Pulmonary fibrosis, unspecified (ICD-10 - J84.10) As before: Noted on chest CT, unchanged on 05/12/2024 compared to 08/09/2023. 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 PFT does not show a restrictive pattern as RV is 122% and TLC is 98%, so I do not feel this is the predominant cause of the patient's symptoms. The plan will be to continue monitoring the fibrosis with a 1 year follow-up chest CT. Adding PFT to be done at the same time, now that he is also on Prolastin therapy. 05/14/2025Multiple pulmonary nodules (ICD-10 - R91.8) As before: 3 month F/U chest CT from 02/07/2024, done on 05/12/2024, shows stability of the RUL nodularity (2 contiguous RUL nodules in a dumbbell orientation, total length 16mm) when compared to prior study 08/09/2023. 1 year follow-up chest CT will be due May 2025. 05/14/2025ronchiectasis, uncomplicated (ICD-10 - J47.9) Mild traction bronchiectasis secondary to pulmonary fibrosis. Asymptomatic at this time. 05/14/2025PAF (paroxysmal atrial fibrillation) (ICD-10 - I48.0) s/p ablation 03/13/2024. Remains in NSR. Off amiodarone. 05/14/2025DM2 (diabetes mellitus, type 2) (ICD-10 - E11.9) Steroids prescribed for this patient's underlying pulmonary disease can adversely affect blood glucose levels, inducing hyperglycemia and worsening underlying diabetes. The patient is encouraged to follow up with the primary care provider to create a plan to manage diabetes in this situation. 05/14/2025OSA (obstructive sleep apnea) (ICD-10 - G47.33) Managed by Dr. Copeland. 05/14/2025History of tobacco abuse (ICD-10 - Z87.891) 1ppd x 30 years, quit 2000. Does not meet current LDCT criteria (>15 years since smoking cessation). Plan Of Treatment Treatment Notes Assessment Notes Centrilobular emphysema Prior treatment: Breztri > Trelegy 100 > Stiolto Patient admits that Breztri has been even better than Trelegy. He reports no symptoms with Breztri use, and is not using any albuterol. He voiced he likes Breztri and wishes to remain on it. Continue Breztri for now. Continue Prolastin therapy. AAT (gsqtb-0-rlouhranjys) deficiency He continues to receive weekly Prolastin infusions without any adverse effects reported. Discussed repeating PFT in May for a 1 year F/U to determine if Prolastin is having any benefit and also if any progression of fibrosis. He voiced agreement. Pulmonary fibrosis, unspecified As before: Noted on chest CT, unchanged on 05/12/2024 compared to 08/09/2023. 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 PFT does not show a restrictive pattern as RV is 122% and TLC is 98%, so I do not feel this is the predominant cause of the patient's symptoms. The plan will be to continue monitoring the fibrosis with a 1 year follow-up chest CT. Adding PFT to be done at the same time, now that he is also on Prolastin therapy. Multiple pulmonary nodules As before: 3 month F/U chest CT from 02/07/2024, done on 05/12/2024, shows stability of the RUL nodularity (2 contiguous RUL nodules in a dumbbell orientation, total length 16mm) when compared to prior study 08/09/2023. 1 year follow-up chest CT will be due May 2025. Bronchiectasis, uncomplicated Mild traction bronchiectasis secondary to pulmonary fibrosis. Asymptomatic at this time. PAF (paroxysmal atrial fibrillation) s/p ablation 03/13/2024. Remains in NSR. Off amiodarone. DM2 (diabetes mellitus, type 2) Steroids prescribed for this patient's underlying pulmonary disease can adversely affect blood glucose levels, inducing hyperglycemia and worsening underlying diabetes. The patient is encouraged to follow up with the primary care provider to create a plan to manage diabetes in this situation. JESS (obstructive sleep apnea) Managed by Dr. Copeland. History of tobacco abuse 1ppd x 30 years, quit 2000. Does not meet current LDCT criteria (>15 years since smoking cessation). Procedure Notes * CategorySub-CategoryDetailNotesPFTData:05/27/2024-FEV1/FVC: 72%-FEV1: 81%-FVC: 82%-BPR99-88%: 76%-Bronchodilator response: None-RV: 122%-T%-DLCO: 43%-Flow-volume loop: Mild-moderate obstructionAlpha-1 AntitrypsinScreening Date:05/20/2024Genotype:MZConfirmatory Date:06/05/2024Level:90mg/dL Progress Notes * ROHAN Lucio WDOB:1950 ( 75 yo M)Acc No.[id number]:05/14/2025 UNLOCKED PROGRESS NOTE Follow Up Patient: Lucio MCLAIN :?Gigi Singleton DODOB:1950???Age:74 Y ???Sex:MaleDate:05/14/2025Phone:[phone]:[address], [id number]:Antony Zamarripa MD Subjective: * Chief Complaints: * 1 . 6m F/U COPD, AAT, Fibrosis. * ROS: ???General/Constitutional:?Fever or sweats?some night sweats.?Change of appetite?denies.?Chills?denies.?Weight Change?denies. ?HEENT:?Dry mouth?denies.?Sore throat?denies.?Oral Ulcers?denies.?Post Nasal Drip?Denies.?Congestion?Denies.?Hoarseness Denies.?Cardiovascular:?Tachycardia?history of afib.?Chest pain?denies.?Palpitations?denies.?Respiratory:?Chest tightness?denies.?Pleurisy?Denies.?Dyspnea?with activity - resolved .?Cough?denies.?Hemoptysis?denies.?Wheezing?denies.?Gastrointestinal:?Acid Reflux/GERD/Heartburn?denies.?Dysphagia?denies.?Musculoskeletal:?Arthralgias/joint pain?Denies.?Skin:?Easy bruising ?denies.?Neurologic:?Seizures?denies.?Tremor?denies.?Hematology:?Abnormal Bleeding?denies.?Psychiatric:?Anxiety?denies.? * Medical History: Objective: * Vitals: * Examination: ???Exam: ?GENERAL APPEARANCE:?Appears stated age.?Skin?Normal.?Mouth?[employer] and moist. No candidiasis.?Oropharynx?Mallampati Class III.?Trachea?Midline.?Chest?Normal.?Respiratory??Normal?Movements,?Effort?Normal.?Auscultation?Improved breath sounds today - good air movement.? Continues to have faint bibasilar dry inspiratory crackles.?Cardiac?Regular rate and rhythm.?Gastrointestinal?Normal.?Vascular?No edema.?Musculoskeletal?Normal posture.?Neurological?Focal, intact.?Psychiatric?Alert and oriented x3.?Mentation/Cognition?Normal.? Assessment: * Assessment: 1.?Centrilobular emphysema - J43.2 (Primary)???2.?AAT (vfruk-9-megepxegxsk) deficiency - E88.01???3.?Pulmonary fibrosis, unspecified - J84.10??&# 160;4.?Multiple pulmonary nodules - R91.8???5.?Bronchiectasis, uncomplicated - J47.9???6.?PAF (paroxysmal atrial fibrillation) - I48.0???7. DM2 (diabetes mellitus, type 2) - E11.9???8.?JESS (obstructive sleep apnea)- G47.33???9.?History of tobacco abuse - Z87.891??? Plan: * Treatment: Notes: Prior treatment: Breztri > Trelegy 100 > Stiolto Patient admits that Breztri has been even better than Trelegy. He reports no symptoms with Breztri use, and is not using any albuterol. He voiced he likes Breztri and wishes to remain on it. ContinueBreztri for now. Continue Prolastin therapy.??2.?AAT (xqjip-7-mghogqnppmw) deficiency? Notes: He continues to receive weekly Prolastin infusions without any adverse effects reported. Discussed repeating PFT in May for a 1 year F/U to determine if Prolastin is having any benefit and also if any progression of fibrosis. He voiced agreement. ??3.?Pulmonary fibrosis, unspecified? Notes: As before: Noted on chest CT, unchanged on 05/12/2024 compared to 08/09/2023. 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 PFT does not show a restrictive pattern as RV is 122% and TLC is 98%, so I do not feel this is the predominant cause of the patient's symptoms. The plan will be to continue monitoring the fibrosis with a 1 year follow-up chest CT. Adding PFT to be done at the same time, now that he is also on Prolastin therapy.??4.?Multiple pulmonary nodules? Notes: As before: 3 month F/U chest CT from 02/07/2024, done on 05/12/2024, shows stability of the RUL nodularity (2 contiguous RUL nodules in a dumbbell orientation, total length 16mm) when compared to prior study 08/09/2023. 1 year follow-up chest CT will be due May 2025.??5.?Bronchiectasis, uncomplicated? Notes: Mild traction bronchiectasis secondary to pulmonary fibrosis. Asymptomatic at this time.??6.?PAF (paroxysmal atrial fibrillation)? Notes: s/p ablation 03/13/2024. Remains in NSR. Off amiodarone.??7.?DM2 (diabetes mellitus, type 2)? Notes: Steroids prescribed for this patient's underlying pulmonary disease can adversely affect blood glucose levels, inducing hyperglycemia and worsening underlying diabetes. The patient is encouraged to follow up with the primary care provider to create a plan to manage diabetes in this situation.? 8.?JESS (obstructive sleep apnea)? Notes: Managed by Dr. Copeland.??9.?History of tobacco abuse? Notes: 1ppd x 30 years, quit 2000. Does not meet current LDCT criteria (>15 years since smoking cessation).?? * Procedures: ???Alpha-1 Antitrypsin:?Screening Date:?05/20/2024.?Genotype:?MZ.?Confirmatory Date:?06/05/2024.?Level:?90mg/dL.?PFT:?Data:?05/27/2024 ?-FEV1/FVC: 72% ?-FEV1: 81% ?-FVC: 82% ?-PBH37-36%: 76% ?-Bronchodilator response: None ?-RV: 122% ?-T% ?-DLCO: 43% ?-Flow-volume loop: Mild-moderate obstruction.? * * Electronic signature of Gigi Singleton DO on 09/18/2025 at 06:48 AM ESTSign off status: PendingVisit Status:?N/S N/C (No Show/No Charge) * Provider: Ruben Singleton, DO Date: 0 05/14/2025 Generated for Printing/Faxing/eTransmitting on:?09/18/2025 06:48 AM EST History and Physical Notes * Examination CategorySub-CategoryDetailNotesCategory NotesExamGENERAL APPEARANCE:Appears stated ageSkinNormalMouthPink and moist. No candidiasisTracheaMidlineChestNormal RespiratoryNormal Movements, Effort NormalAuscultationImproved breath sounds today - good air movement. Continues to have faint bibasilar dry inspiratory cracklesCardiacRegular rate and rhythmGastrointestinalNormalVascularNo edema MusculoskeletalNormal postureNeurologicalFocal, intactPsychiatricAlert and oriented j2Fpbevgfin/CognitionNormalOropharynxMallampati Class III
--- OUTSIDE RECORDS SUMMARY | 2025-05-14 05:00 | XMS_ITS ---
Author Organization The [facility] in [place] Address [address] [place] [address] Care Team Providers Care Liquid Yeast Supervisor Name Role Phone Antony Zamarripa MD Primary Care Provider Unavailab escobar Gigi Singleton Unavailable [phone] REASON FOR VISIT 6m F/U COPD, AAT, Fibrosis Encounters Encounter Location Date Provider Diagnosis Pulmonary Medicine [place] [address] [place] [address] 05/14/2025 Gigi Singleton Centrilobular emphys lashawn J43.2 ; AAT (cttxr-9-tjkbmuqqgdr) deficiency E88.01 ; Pulmonary fibrosis, unspecified J84.10 [...] ContinueBreztri for now. Continue Prolastin therapy. 05/14/2025AT (obstc-2-dpvgvozfqoz) deficiency (ICD-10 - E88.01) He continues to [...] Breztri for now. Continue Prolastin therapy. AAT (qknmw-1-ekkeojqydsh) deficiency He continues to receive weekly Prolastin [...] cessation). Procedure Notes * CategorySub-CategoryDetailNotesPFTData:05/27/2024-FEV1/FVC: 72%-FEV1: 81%-FVC: 82%-KYD85-18%: 76%-Bronchodilator response: None-RV: 122%-T%-DLCO: 43%-Flow-volume loop: Mild-moderate obstructionAlpha-1 AntitrypsinScreening Date:05/20/2024Genotype:MZConfirmatory Date:06/05/2024Level:90mg/dL Progress Notes * ROHAN Lucio WDOB:1950 ( 75 yo M)Acc No.[id number]:05/14/2025 UNLOCKED PROGRESS NOTE Follow Up Patient: Lucio MCLAIN :?Gigi Singleton DODOB:1950???Age:74 Y ???Sex:MaleDate:05/14/2025Phone:[phone]:[address], [id number]:Antony Zamarripa MD Subjective: * Chief Complaints: * 1 . 6m F/U COPD, AAT, Fibrosis. * ROS: ???General/Constitutional:?Fever or sweats?some night sweats.?Change of appetite?denies.?Chills?denies.?Weight Change?denies. ?HEENT:?Dry mouth?denies.?Sore throat?denies.?Oral Ulcers?denies.?Post Nasal Drip?Denies.?Congestion?Denies.?Hoarseness Denies.?Cardiovascular:?Tachycardia?history of afib.?Chest pain?denies.?Palpitations?denies.?Respiratory:?Chest tightness?denies.?Pleurisy?Denies.?Dyspnea?with activity - resolved .?Cough?denies.?Hemoptysis?denies.?Wheezing?denies.?Gastrointestinal:?Acid Reflux/GERD/Heartburn?denies.?Dysphagia?denies.?Musculoskeletal:?Arthralgias/joint pain?Denies.?Skin:?Easy bruising ?denies.?Neurologic:?Seizures?denies.?Tremor?denies.?Hematology:?Abnormal Bleeding?denies.?Psychiatric:?Anxiety?denies.? * Medical History: Objective: * Vitals: * Examination: ???Exam: ?GENERAL APPEARANCE:?Appears stated age.?Skin?Normal.?Mouth?[place] and moist. No candidiasis.?Oropharynx?Mallampati Class III.?Trachea?Midline.?Chest?Normal.?Respiratory??Normal?Movements,?Effort?Normal.?Auscultation?Improved breath sounds today - good air movement.? Continues to have faint bibasilar dry inspiratory crackles.?Cardiac?Regular rate and rhythm.?Gastrointestinal?Normal.?Vascular?No edema.?Musculoskeletal?Normal posture.?Neurological?Focal, intact.?Psychiatric?Alert and oriented x3.?Mentation/Cognition?Normal.? Assessment: * Assessment: 1.?Centrilobular emphysema - J43.2 (Primary)???2.?AAT (wcuyt-1-mjzvoogbiwd) deficiency - E88.01???3.?Pulmonary fibrosis, unspecified - J84.10??&# [...] it. ContinueBreztri for now. Continue Prolastin therapy.??2.?AAT (neqck-2-evyywggormw) deficiency? Notes: He continues to receive weekly [...] Date:?06/05/2024.?Level:?90mg/dL.?PFT:?Data:?05/27/2024 ?-FEV1/FVC: 72% ?-FEV1: 81% ?-FVC: 82% ?-RPC64-04%: 76% ?-Bronchodilator response: None ?-RV: 122% ?-T% ?-DLCO: 43% ?-Flow-volume loop: Mild-moderate obstruction.? * * Electronic signature of Gigi Singleton DO on 09/17/2025 at 05:27 AM ESTSign off status: PendingVisit Status:?N/S N/C (No Show/No Charge) * Provider: Ruben Singleton, DO Date: 0 05/14/2025 Generated for Printing/Faxing/eTransmitting on:?09/17/2025 05:27 AM EST History and Physical Notes * Examination CategorySub-CategoryDetailNotesCategory NotesExamGENERAL APPEARANCE:Appears stated ageSkinNormalMouthPink and moist. No candidiasisTracheaMidlineChestNormal RespiratoryNormal Movements, Effort NormalAuscultationImproved breath sounds today - good air movement. Continues to have faint bibasilar dry inspiratory cracklesCardiacRegular rate and rhythmGastrointestinalNormalVascularNo edema MusculoskeletalNormal postureNeurologicalFocal, intactPsychiatricAlert and oriented n4Tsizibdaa/CognitionNormalOropharynxMallampati Class III
--- OUTSIDE RECORDS SUMMARY | 2025-06-09 06:00 | XMS_ITS ---
Author Organization The [facility] in [place] Address [address] [place] [address] Care Team Providers Care Apartment Leasing Consultant Name Role Phone Dallin BUSH, Antony Primary Care Provider Unavailab shawn Juan Gigi Unavailable [phone] REASON FOR VISIT 6m F/U COPD, AAT, Fibrosis Encounters Encounter Location Date Provider Diagnosis Pulmonary Medicine [place] [address] [place] [address] 06/09/2025 Gigi Juan Plan Of Treatment No Information Progress Notes * Lucio MADRIGAL WDOB:1950 ( 75 yo M)Acc No.[id number]:06/09/2025 UNLOCKED PROGRESS NOTE Follow Up Patient: Lucio MCLAIN :?iGgi Singleton, DODOB:1950???Age:74 Y ???Sex:MaleDate:06/09/2025Phone:[phone]:[address] [address] [place] [id number]:Antony Zamarripa MD Subjective: * Chief Complaints: * 1 . 6m F/U COPD, AAT, Fibrosis. * Medical History: Objective: * Vitals: Assessment: Plan: * Treatment: * * Electronic signature of Gigi Singleton DO on 09/18/2025 at 06:48 AM ESTSign off status: PendingVisit Status:?R/S (Rescheduled) * Provider: Ruben Singleton DO Date: 0 06/09/2025 Generated for Printing/Faxing/eTransmitting on:?09/18/2025 06:48 AM EST
--- OUTSIDE RECORDS SUMMARY | 2025-06-09 06:00 | XMS_ITS ---
Author Organization [facility] in [place] Address [address] [place] [address] Care Team Providers Care Site Leasing Agent Name Role Phone Dallin BUSH, Antony Primary Care Provider Unavailab shawn Juan Gigi Unavailable [phone] REASON FOR VISIT 6m F/U COPD, AAT, Fibrosis Encounters Encounter Location Date Provider Diagnosis [facility] [place] [address] [place] [address] 06/09/2025 Gigi Juan Plan Of Treatment No Information Progress Notes * Lucio MADRIGAL WDOB:1950 ( 75 yo M)Acc No.[id number]:06/09/2025 UNLOCKED PROGRESS NOTE Follow Up Patient: Lucio MCLAIN :?Gigi Singleton, DODOB:1950???Age:74 Y ???Sex:MaleDate:06/09/2025Phone:[phone]:[address] [place] [id number]:Antony Zamarripa MD Subjective: * Chief Complaints: * 1 . 6m F/U COPD, AAT, Fibrosis. * Medical History: Objective: * Vitals: Assessment: Plan: * Treatment: * * Electronic signature of Gigi Singleton DO on 09/17/2025 at 05:27 AM ESTSign off status: PendingVisit Status:?R/S (Rescheduled) * Provider: Ruben Singleton DO Date: 0 06/09/2025 Generated for Printing/Faxing/eTransmitting on:?09/17/2025 05:27 AM EST
[2025-09-17] VITALS (23 sets, daily range): BP systolic 108–180; BP diastolic 66–116; PULSE 77–92; TEMP 36.2–37.1; O2SAT 91–96; BMI 32.1; BMI 30.3
--- OUTSIDE RECORDS SUMMARY | 2025-09-17 05:25 | XMS_ITS | Continuity of Care Document ---
Author Name [facility] Organization [facility] Care Team Providers Care Manager Switch Name Role Phone [facility] Unavailable Unavailable Immunizations Combined list of available immunizations from the Department of Defense and Veterans Affairs facilities. Immunization Series Date Given Administered By Site Reaction Lot Number CVX Code Drug Maintenance And Engineering Manager Status Comments Source COVID-19, mRNA, LNP-S, PF, 30 mcg/0.3 mL dose 2020 RAY, [employer] [place] (PFR) Not Given COVID-19, mRNA, LNP-S, PF, 30 mcg/0.3 mL dose DoD COVID-19, mRNA, LNP-S, PF, 30 mcg/0.3 mL dose 2020 [employer] [place] (PFR) Not Given COVID-19, mRNA, LNP-S, PF, 30 mcg/0.3 mL dose DoD zoster recombinant 2020 RAY, () Not Given zoster recombina nt DoD influenza, high-dose, quadrivalent 2019 RAY, () Not Given influenza , high-dose , quadrival ent DoD zoster recombinant 2019 RAY, () Not Given zoster recombina nt DoD Pneumococcal conjugate PCV 13 2019 RAY, () Not Given Pneumococ brent conjugate PCV 13 DoD Pneumococcal conjugate PCV 13 2018 RAY, () Not Given Pneumococ brent conjugate PCV 13 DoD Influenza, high dose seasonal 2018 RAY, () Not Given Influenza , high dose seasonal DoD influenza, injectable, quadrivalent, preservative free 2016 VANNA JARRETT () Not Given influenza , injectabl e, quadrival ent, preservat berenice free DoD influenza, injectable, quadrivalent, preservative free 2015 VANNA JARRETT () Not Given influenza , injectabl e, quadrival ent, preservat berenice free DoD influenza, injectable, quadrivalent, preservative free 2014 VANNA JARRETT () Not Given influenza , injectabl e, quadrival ent, preservat berenice free DoD Influenza, seasonal, injectable, preservative free 2013 GRETCHEN AHUMADA () Not Given Influenza , seasonal, injectabl e, preservat berenice free DoD Social History Combined list of available smoking, tobacco, and other social history from Department of Defense and Veterans Affairs facilities. Social History Type Response Date Comment Sour e This section is an empty social history section. DoD
--- OUTSIDE RECORDS SUMMARY | 2025-09-17 05:27 | XMS_ITS | Clinical Summary ---
Author Organization [facility] Address [address] [place] [address] Care Team Providers Care Whipped Topping Mixer Name Role Phone Antony Zamarripa MD Primary Care Provider [phone] Allergies Active AllergyReactionsCriticalityNoted DateCommentsPenicillinsRash,UnknownLow 12/27/2020 Medications MedicationSigDispense QuantityRefillsLast FilledStart DateEnd DateStatus apixaban (Eliquis) 5 mg tablet Take 5 mg by mouth in the morning and at bedtime.Active celecoxib (CeleBREX) 200 mg capsule Take 200 mg by mouth in the morning. As vhzfva3211/21/2022ctive glimepiride (Amaryl) 2 mg tablet Take 2 mg by mouth 2 times daily.Active SITagliptin phosphate (Januvia) 50 mg tablet Take 50 mg by mouth in the morning.Active atorvastatin (Lipitor) 40 mg tablet Indications:Mixed hyperlipidemiaTAKE 1 TABLET IN THE MORNING 90 tablet ctive folic acid (Folvite) 1 mg tablet Take 1 mg by mouth in the morning.06/19/2024ctive amLODIPine (Norvasc) 5 mg tablet Indications:Benign hypertensive heart disease without heart failureTake 1 tablet (5 mg) by mouth in the morning. 90 tablet ctive Additional Information Patient not taking.Reported on 08/07/2025 benazepril (Lotensin) 40 mg tablet Indications:Benign hypertensive heart disease without heart failureTake 1 tablet (40 mg) by mouth in the morning. 90 tablet ctive Breztri Aerosphere 160-9-4.8 mcg/actuation HFA aerosol inhaler Inhale 2 puffs every 12 (twelve) hours.09/09/2024ctive amantadine (Symmetrel) 100 mg tablet Take 100 mg by mouth in the morning.08/14/2024ctive carvedilol (Coreg) 6.25 mg tablet Indications:SVT (supraventricular tachycardia)TAKE 1 TABLET WITH BREAKFAST AND WITH EVENING MEAL 60 tablet 1105Active Additional Information Patient not taking.Reported on 08/07/2025 albuterol 90 mcg/actuation inhaler Inhale 2 puffs every 6 (six) hours if needed.05/19/2025tive alpha1-proteinase inhibitor (Prolastin-C) infusion Infuse 60 mg/kg into a venous catheter 1 (one) time per week.Active SITagliptin 50 mg tablet Take 50 mg by mouth twice a day.09/11/2024ctive Synjardy 12.5-1,000 mg Take 1 tablet by mouth with breakfast and with evening meal.07/06/2025tive carvedilol (Coreg) 12.5 mg tablet Indications:Essential hypertensionTake 1 tablet (12.5 mg) by mouth with breakfast and with evening meal. THIS IS AN INCREASE 180 tablet 6Active Active Problems ProblemNoted DateDiagnosed DateNonrheumatic mitral valve xvxneqpafszge72/03/2025 Ayldmlb7511/17/2024Feeling of incomplete bladder saijzyqb94/13/2025Frequent egaofvdud11/13/2025Gross ieksgcydn09/13/2025Weak urinary oqkjmc1311/17/2024 Emphysema due to uypge-9-xgsxgfzqcyp /07/2024Folic acid deficiency 06/19/20245103Bcowv-3-pczglywnccj cmkmyagnzq89/14/2024OSA (obstructive sleep apnea) 03/13/2024Hypersomnia due to medical cjopkaqhw80/05/2024Hypersomnolence 03/09/20243795Zrhdzztpgrgk45/05/2024Short-term memory lossTremor of both handsSVT (supraventricular tachycardia)12/11/[address] of the chest/04/2024Lung axjwidp50 Abdominal aortic aneurysm without /bdominal aortic /iabetic peripheral neuropathy associated with type 2 diabetes ixdwjxzh43/04/2024Hypertensive heart disease without heart ousfqln47LVH (left ventricular hypertrophy)07/25/2023 12/11/2023Mild nonproliferative diabetic retinopathy associated with type 2 diabetes bjbcqdyo88Obesity (BMI 30-39.9)/04/2024 Uncontrolled type 2 diabetes mellitus with ytwnkinfnsrtx44/20/202302/04/2024 Mixed jbuvpghfyzmcvm73/05/2020Hyperglycemia due to type 2 diabetes mellitus 03/13/2019Diastasis of ovaksh2709/18/2018Impingement syndrome of shoulder region 09/18/2018Atrial bpbjtnnvqimp45/11/2018Ventricular premature beats07/09/2018 3Diabetes jviwzxnd42/29/3872Bflaakxcndng08/22/2018Diastolic dysfunction 06/26/2018Cardiac kykncgjbuv28/31/2018Chronic zccmonzsmmpv70/13/2018Urinary /16/2018Cervical siqwmqkcgmn27/17/2018Cervical radiculopathy 11/21/2017Displacement of cervical intervertebral disc11/21/2017Allergic rhinitis due to /27/2016Benign essential oqqglisnzqmz96/27/2016 Dysmetabolic syndrome X12/01/2015Pure wpsjtvgaxqstinglpgir46/27/2016Type 2 diabetes mellitus without inaegfytcyxj85enign prostatic hyperplasia without urinary xtzunbbuivp59 Encounters DateTypeDepartmentCare IeuxAorddqvkgrg00/07/2025Telephone [facility] [address] [place] [facility] [address] Cleopatra Hatfield MA 08/07/2025 10:20 AM EDTOffice Visit [facility] [address] [place] [facility] [place] [address] Eder Cavazos MD Paroxysmal atrial fibrillation (CMS/HCC) (Primary Dx); Abdominal aortic aneurysm (AAA) without rupture, unspecified part; Nonrheumatic mitral valve regurgitation; Primary hypertension; Mixed ewooxfspnqnjgw05/03/2025Telephone [facility] [address] [facility] [phone] Anna Maldonado MA 08/07/2025Refill [facility] [address] [facility] [place] [phone] Anna Maldonado MA Essential hypertension (Primary Dx)from Last 3 Months Immunizations ImmunizationAdministration DatesNext DueInfluenza, High Dose Seasonal, Preservative Free07/24/2019,07/23/2019,08/22/2018Influenza, High-dose Seasonal, Quadrivalent, Preservative Free2022,07/16/2020Influenza, injectable, ypxrurszrprv20/19/2016Influenza, injectable, quadrivalent, preservative free 08/22/2018,08/28/2017,08/23/2015Influenza, seasonal,quadrivalent, preservative free08/25/2014Pneumococcal Conjugate PCV 13007/16/2020Pneumococcal Polysaccharide KIR121306/27/2019Td (adult), 5 Lf tetanus toxoid, preservative free, adsorbed 11/05/1999Zoster, Zseauexckle09/09/2021,07/16/2020 Family History Medical HistoryRelationNameCommentsCoronary artery diseaseBrotherStrokeBrother Coronary artery diseaseFatherHeart attackFatherRelationNameStatusCommentsBrother FatherDeceasedMotherDeceased Social History Tobacco UseTypesPacks/DayYears UsedDateSmoking Tobacco: FormerCigarettes Smokeless Tobacco: Never Tobacco Cessation:Counseling Given: Not Answered Alcohol UseStandard Drinks/WeekCommentsNot Currently0 (1 standard drink = 0.6 oz pure alcohol)UT Safety & EnvironmentAnswerDate RecordedFear of Current or Ex-PartnerNot on file12/27/2023Emotionally AbusedNot on file12/27/2023hysically AbusedNot on file12/27/2023Sexually AbusedNot on file12/27/2023hysically or Sexually AbusedNot on file12/27/2023Sex and Gender InformationValueDate Recorded Sex Assigned at VzvjuOmpx48/09/2025 9:02 AM EDTLegal SahHhpt7005/04/2022 12:07 AM EDTGender WlwlfplzWnnh90/09/2025 9:02 AM EDTSexual OrientationHeterosexual or Dmutdjmp56/09/2025 9:02 AM EDT Last Filed Vital Signs Vital SignReadingTime TakenCommentsBlood Dpqhdszp830/9108/07/2025 10:31 AM EDT Xuqth178908/07/2025 10:31 AM WXAEwybjrpmklg50.4 ??C (97.5 ??F)03/13/2024 11:15 AM EDTRespiratory Xvgh700903/13/2024 3:10 PM EDTOxygen Ggqhprphit58%08/07/2025 10:31 AM EDTInhaled Oxygen Concentration--Ttmxka114 kg (231 lb)08/07/2025 10:31 AM EDT Nhsjgz058.3 cm (5' 11 )08/07/2025 10:31 AM EDTBody Mass Index32.221 10:31 AM EDT Plan of Treatment Health MaintenanceDue DateLast DoneCommentsCT Sdcojazhjtot1950Colonoscopy 1950Diabetes: Hemoglobin A1C1950FOBT1950Medicare Annual Wellness (AWV)08/03/19502573Gtiyptreempcx1950Diabetes: Retinopathy Screening 1960Depression Bqdzolaiv05/29/1962Adult Vsregud69/01/Fall Risk Cdobwueav54/29/2755TID082COVID-19 Vaccine (3 - Pfizer risk series), 04/08/2021, 1Colorectal Cancer Screening 08/08/2025FIT-DNA2Diabetes: Urine Protein Sbvcrocoj88/08/2026 11/12/2024, 3Pneumococcal Vaccine: 50+ InzmpFrtljdsqq94/11/2020, 06/27/2019Zoster YcccozfrNyvbfavmf87/09/2021, 07/16/2020Influenza Vaccine Wvhpbwfsv94/22/2025, 10/13/2024, 11/22/2023, Additional history existsHIB VaccinesAged OutNo longer eligible based on patient's age to complete this topic HPV VaccinesAged OutNo longer eligible based on patient's age to complete this topicIPV VaccinesAged OutNo longer eligible based on patient's age to complete this topicMeningococcal B VaccineAged OutNo longer eligible based on patient's age to complete this topicMeningococcal VaccineAged OutNo longer eligible based on patient's age to complete this topicRotavirus VaccinesAged OutNo longer eligible based on patient's age to complete this topic Insurance Advance Directives * Full Code (Latest Code Status on File) Date ActivatedDate InactivatedComments03/13/2024 11:22 AM03/13/2024 5:17 PM Care Teams Team MemberRelationshipSpecialtyStart DateEnd Date Antony Zamarripa MD [address] [facility] [address] [place] [address] [facility] - General12/04/22
--- OUTSIDE RECORDS SUMMARY | 2025-09-17 05:27 | XMS_ITS | Encounter Summary ---
Author Organization [facility] Address [address] [place] [address] Care Team Providers Care Sorter Packer Name Role Phone Antony Zamarripa MD Primary Care Provider [phone] Antony Zamarripa MD Unavailable [phone] Juliann Wood TRIAGE REGISTER NURSE Unavailable [phone] Encounter Details DateTypeDepartmentCare Team (Latest Contact Info)Fxvbrjengbz83/23/2024Clinisync Result Encounter [facility] External Department Unsolicited Provider, Generic External Data Social History Tobacco UseTypesPacks/DayYears UsedDateSmoking Tobacco: FormerCigarettes1.527 1972 - 1999Smokeless Tobacco: NeverAlcohol UseStandard Drinks/WeekCommentsNot Currently0 (1 standard drink = 0.6 oz pure alcohol)caffeine intake: more than 4 cups per day coffee, sodaHumiliation, Afraid, Rape, and Kick questionnaireAnswer Date RecordedWithin the last year, have you been afraid of your partner or ex-partner?No07/25/2023Within the last year, have you been humiliated or emotionally abused in other ways by your partner or ex-partner?No07/25/2023 Within the last year, have you been kicked, hit, slapped, or otherwise physically hurt by your partner or ex-partner?No07/25/2023Within the last year, have you been raped or forced to have any kind of sexual activity by your part ner or ex-partner?No07/25/2023Social Connection and Isolation PanelAnswerDate RecordedIn a typical week, how many times do you talk on the phone with family, friends, or neighbors?More than three times a week07/25/2023How often do you get together with friends or relatives?Twice a week07/25/2023How often do you attend hoahaoism or holiness services?Patient rurfluhr47/20/2023o you belong to any clubs or organizations such as hoahaoism groups, unions, Mind[employer] or athletic batool ups, or school groups?Patient qrpgnqas73/20/2023How often do you attend meetings of the clubs or organizations you belong to?Patient qchirwxa35/20/2023re you , , , , never , or living with a partner? Qywpszg4607/25/2023UDIT-CAnswerDate RecordedQ1: How often do you have a drink containing alcohol?Never07/25/2023verage Number of DrinksNot on file07/25/2023 Frequency of Binge DrinkingNot on file07/25/2023Overall Financial Resource Strain (CARDIA)AnswerDate RecordedHow hard is it for you to pay for the very basics like food, housing, medical care, and heating?Hard07/25/2023HQ-2Answer Date RecordedPatient Health Questionnaire-2 Zqewp623[facility] [place] [facility] - Occupational Stress QuestionnaireAnswerDate RecordedDo you feel stress - tense, restless, nervous, or anxious, or unable to sleep at night because yourmind is troubled all the time - these days?Rather much07/25/2023 Exercise Vital SignAnswerDate RecordedOn average, how many days per week do you engage in moderate to strenuous exercise (like a brisk walk)?1 day07/25/2023On average, how many minutes do you engage in exercise at this level?20 min 07/25/2023Hunger Vital SignAnswerDate RecordedWithin the past 12 months, you worried that your food would run out before you got the money to buymore.Never true07/25/2023Within the past 12 months, the food you bought just didn't last and you didn't have money to get more.Never true07/25/2023RAPARE - TransportationAnswerDate RecordedIn the past 12 months, has lack of transportation kept you from medical appointments or from getting medications?No 07/25/2023In the past 12 months, has lack of transportation kept you from meetings, work, or from getting things needed for daily living?No07/25/2023 Housing Stability Vital SignAnswerDate RecordedIn the last 12 months, was there a time when you were not able to pay the mortgage or rent on time?Patient jraqmqu4507/25/2023Number of Places Lived in the Last YearNot on file07/25/2023In the last 12 months, was there a time when you did not have a steady place to sleep or slept in ashelter (including now)?Patient hjgqgzs2407/25/2023Sex and Gender InformationValueDate RecordedSex Assigned at BirthNot on fileLegal Sex Male01/17/2023 7:18 PM EDTGender IdentityNot on fileSexual OrientationNot on filedocumented as of this encounter Functional Status * Over the past 2 weeks, how often have you been bothered by any of the following problems?QuestionAnswerDate of AssessmentAuthorLittle interest or pleasure in doing thingsNot at all07/27/2025 10:00 AM Sandra Gaspar LPN documented as of this encounter Plan of Treatment DateTypeDepartmentCare Team (Latest Contact Info)Llrtxmqdzeb39/08/2025 10:00 AM ESTOffice Visit [facility] [address] [facility] [address] [place] [id number] Antony Zamarripa MD [address] [facility] [address] [place] [address] 12/17/2025 11:30 AM ESTOffice Visit [facility] [place] [facility] [address] [facility] [address] [place] [address] Rafael Escalante MD [address] [facility] [address] [address] documented as of this encounter Procedures Procedure NamePriorityDate/TimeAssociated DiagnosisCommentsRT PULMONARY FUNCTION TEST05/27/2024 8:16 AM EDT documented in this encounter Results * RT PULMONARY FUNCTION TEST (05/27/2024 8:16 AM EDT)Anatomical RegionLaterality ModalityOtherSpecimen (Source)Anatomical Location / LateralityCollection Method / VolumeCollection TimeReceived Time05/27/2024 8:16 AM EDT Narrative 05/27/2024 5:06 PM EDT [facility] ?[address] ? [place] [address] ? Respiratory Report ? Signed ? Patient: YOUNG,LUCIO W ? MR#: [id number] ?? : 1950 ?Acct:[id number] ?? Age/Sex: 73 / M ?ADM Date: 05/27/24 ?? Loc: CARD ? Attending Dr: Gigi Singleton D.O. ? Ordering Physician: Giig Singleton D.O. ?? Date of Service: 05/27/24 ?? Procedure(s): RT pulmonary function test ?? Accession Number(s): [id number] ? cc: ?[facility] ? Test Date: ?2024-05-27 ?? Pat Name: ? LUCIO YOUNG ?Department: ? Room: ? - ?? Gender: ? Male ? Senior [employer] Parach[employer]ist: ?? 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 : ?1950 ? Requested By: Gigi Singleton ?? Order Number: [id number] ?Reading MD: ?? Gigi Singleton ? Interpretive Statements ?? Pulmonary function testing was completed according to ATS criteria. Findings ?? were considered accurate and reproducible. Both pre- and post-bronchodilator ?? values utilized for spirometry. ? Spirometry (based on pre-bronchodilator values): ?? -FEV1/FVC: Low normal @ 72% ?? -FEV1: Normal @ 81% ?? -FVC: Normal @ 82% ?? -KYW21-90%: Reduced @ 76% ?? -There is no significant bronchodilator response. ? Lung volumes by plethysmography (based on pre-bronchodilator values): ?? -RV: Increased @ 122% ?? -TLC: Normal @ 98% ? Diffusion capacity: ?? -DLCO: Severe reduction @ 43% when corrected for Hb 15.1g/dL ? Flow-volume loop: ?? -Moderate obstructive pattern ? Impressions: ?? -Spirometry trends towards a mild-moderate obstruction pattern. There is no ?? bronchodilator response. An elevated RV suggests air trapping. There is a ?? 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 ??Patient is at risk of ambulatory desaturations with a ?? decreaed DLCO. Clinical correlation required. ? Electronically Signed On 05-27-2024 17:06:32 EDT by Gigi Singleton ? Dictated By: ?Gigi Singleton D.O. ? Signed By: ?05/27/24 1706 ? DD/ 0816 ? TD/TT: ? Counter Server: Procedure Note Radiology, Radiologist, - 05/27/2024 [place] [address] Respiratory Report Signed Patient: LUCIO MADRIGAL WMR#: [id number] : 1950Acct:[id number] Age/Sex: 73 / MADM Date: 05/27/24 Loc: CARD Attending Dr: Gigi Singleton D.O. Ordering Physician: Gigi Singleton D.O. 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 Both pre- andpost-bronchodilator values utilized for spirometry. Spirometry (based on pre-bronchodilator values): -FEV1/FVC: Low normal @ 72% -FEV1: Normal @ 81% -FVC: Normal @ 82% -EEC71-02%: Reduced @ 76% -There is no significant bronchodilator response. Lung volumes by plethysmography (based on pre-bronchodilator values): -RV: Increased @ 122% -TLC: Normal @ 98% Diffusion capacity: -DLCO: Severe reduction @ 43% when corrected for Hb 15.1g/dL Flow-volume loop: -Moderate obstructive pattern Impressions: -Spirometry trends towards a mild-moderate obstruction pattern. There isno bronchodilator response. An elevated RV suggests air trapping. There is a severely reduced diffusion capacity.nOverall study is compatible with COPD/emphysema. Patient is at risk of ambulatory desaturations with a decreaed DLCO. Clinical correlation required. Electronically Signed On 05-27-2024 17:06:32 EDT by Gigi Singleton Dictated By: Gigi Singleton D.O. Signed By:05/27/24 1706 DD/ 0816 TD/TT: Counter Server: Authorizing ProviderResult TypeResult StatusGeneric External Data Provider [facility] IMAGINGFinal Result documented in this encounter Visit Diagnoses Not on filedocumented in this encounter Care Teams Team MemberRelationshipSpecialtyStart DateEnd Date Antony Zamarripa MD [address] [facility] [address] [place] [address] PCP - GeneralInternal Medicine03/13/23 Antony Zamarripa MD [address] [facility] [address] [place] [address] PCP - ACO Reach01/04/24 Juliann Wood, TRIAGE REGISTER NURSE [address] [place] [address] Social WorkerFapaly Medicine06/17//documented as of this encounter
--- OUTSIDE RECORDS SUMMARY | 2025-09-17 05:27 | XMS_ITS | Clinical Summary ---
Author Organization [facility] Address [address] [place] [address] Care Team Providers Care Sand Analyst Name Role Phone Antony Zamarripa MD Primary Care Provider [phone] Antony Zamarripa MD Unavailable [phone] Allergies Active AllergyReactionsCriticalityNoted DateCommentsPenicillin Reggie ReddyArsh 07/25/2023 Medications MedicationSigDispense QuantityRefillsLast FilledStart DateEnd DateStatus atorvastatin (Lipitor) 40 MG tablet Take 40 mg by mouth in the morning.Active Multiple Vitamin (Multivitamin) tablet Take 1 tablet by mouth DailyActive amLODIPine (Norvasc) 5 MG tablet Take 5 mg by mouth in the morning.07/31/2024ctive benazepril (Lotensin) 40 MG tablet Take 40 mg by mouth in the morning.07/31/2024ctive carvedilol (Coreg) 6.25 MG tablet Take 6.25 mg by mouth in the morning and 6.25 mg in the evening. Take with meals.Active amantadine (Symmetrel) 100 MG tablet Indications:Memory loss,Tremor,Parkinsonism, unspecified Parkinsonism type (HCC) Take 1 tablet (100 mg) by mouth in the morning and 1 tablet (100 mg) before bedtime. 1 po daily for1 week then can increase to bid. 60 tablet ctive folic acid (Folvite) 1 MG tablet Indications:B12 deficiency,Folic acid deficiencyTake 1 tablet (1,000 mcg) by mouth Daily 90 tablet ctive Tzbiarz-Foiqoeoofws-Dsufcbsaog (Breztri Aerosphere) 160-9-4.8 MCG/ACT aerosol Inhale 2 puffs every 12 (twelve) hours09/09/2024ctive SITagliptin (Januvia) 50 MG tablet Indications:Uncontrolled type 2 diabetes mellitus with hyperglycemia (HCC)Take 1 tablet (50 mg) by mouth in the morning and 1 tablet (50 mg) before bedtime. 200 tablet ctive glimepiride (Amaryl) 2 MG tablet Indications:Type 2 diabetes mellitus with hyperglycemia, without long-term current use of insulin (HCC)TAKE 1 TABLET IN THE MORNING AND 1 TABLET IN THE EVENING WITH MEALS 180 tablet ctive Alpha1-Proteinase Inhibitor (PROLASTIN IV) Infuse into a venous catheter every 7 (seven) days Per dr Zambrano apixaban (Eliquis) 5 MG tablet Indications:Paroxysmal atrial fibrillation (HCC)TAKE 1 TABLET TWICE A DAY 200 tablet 5Active albuterol HFA 90 mcg/act inhaler Inhale 2 puffs every 6 (six) hours if pxngmg175Active Active Problems ProblemNoted DateDiagnosed MybmIewwt-9-euvbxtllnzd guifdhibcg63/07/2024Emphysema due to pfswd-3-txzbquswjis /07/2024Folic acid ucwhuctaha63/15/2024 JESS (obstructive sleep apnea)03/09/2024Hypersomnia due to medical condition 03/09/20240795Shdjyyvkqmja66/05/2998Vcbirgresqgvuri35/05/2024Short-term memory loss 01/07/2024Tremor of both hands01/07/2024SVT (supraventricular tachycardia) 12/11/2023bnormal CT of the chest08/23/2023Lung xrsadob4908/23/2023bdominal aortic aneurysm without rijptjk9607/25/2023bdominal aortic olaefvr3507/25/2023 Benign essential juwlbkzrfgci17/20/2023enign prostatic hyperplasia without urinary nbilifjxjea69/20/2023ardiac nefbgvtwdq23/20/2023ervical radiculopathy 07/25/2023ervical vpfdedphvsg40/20/2023hronic nhdyztdlwmco73/20/2023iabetic peripheral neuropathy associated with type 2 diabetes wlietudj07/20/2023 Diastolic farlvjhxyfk42/20/2023isplacement of cervical intervertebral disc 07/25/2023Uncontrolled type 2 diabetes mellitus with spzaacxjrqlcp01/20/2023 Hypertensive heart disease without heart ktxdjgh9707/25/2023Impingement syndrome of shoulder sgjbey7007/25/2023LVH (left ventricular hypertrophy)07/25/2023Mild nonproliferative diabetic retinopathy associated with type 2 diabetes mellitus 07/25/2023Obesity (BMI 30-39.9)07/25/2023Other allergic /20/2023 Paroxysmal atrial cvzslanglbso64/20/2023Rectus fsuplbekc99/20/2023Urinary tvzecfkja05/20/2023Ventricular premature beats07/25/2023Mixed hyperlipidemia 04/09/20209379Huhzbrxxfvof85/22/2018 Resolved Problems ProblemNoted DateDiagnosed DateResolved DateDysmetabolic syndrome X07/25/2023 08/15/2024ure dhptsmwljdibvlmcbehj76/20/202310/11/2024 Encounters DateTypeDepartmentCare RcykWgqmczbehyb79/09/2025linisync Result Encounter [facility] External Department Unsolicited Provider, Generic External Data 5Abstract [facility] [place] [facility] [address] [facility] [address] [place] [address] Antony Zamarripa MD 07/27/2025 10:30 AM EDTOffice Visit [facility] [place] [address] [place] [address] Antony Zamarripa MD Routine general medical examination at health care facility (Primary Dx); ACP (advance care planning); Encounter for immunization; Type 2 diabetes mellitus with diabetic neuropathy, without long-term current use of insulin (HCC); Paroxysmal atrial fibrillation (HCC); Mixed hyperlipidemia ; Primary hypertension ; 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 [address] [facility] [address] [place] [address] Antony Zamarripa MD 07/27/20250537Behyop59/21/2025Patient Outreach [facility] [address] [place] [address] Juliann Wood LSW from Last 3 Months Immunizations ImmunizationAdministration DatesNext DueInfluenza, High Dose Seasonal, Preservative Free07/27/2025,10/13/2024,07/24/2019Influenza, High-dose Seasonal, Quadrivalent, Preservative Free2022,07/16/2020Influenza, Seasonal, Quadrivalent, Ypxetouvmx57/18/2024Influenza, injectable, tgpmvavhryif86/19/2016 Influenza, injectable, quadrivalent, preservative free08/22/2018,08/28/2017, 08/23/2015Influenza, seasonal, intradermal, preservative free08/25/2014 Pneumococcal Conjugate PCV 13007/16/2020Pneumococcal Polysaccharide PPSV23 06/27/2019Td (adult), 5 Lf tetanus toxoid, preservative free, irfrmmbq28/01/2000 Zoster, Fixhzpuuyme22/09/2021,07/16/2020 Family History Medical HistoryRelationNameCommentsHeart diseaseFatherHypertensionFatherCOPD MotherLung diseaseMotherHeart diseaseSiblingHypertensionSiblingStrokeSibling RelationNameStatusCommentsFatherDeceasedMaternal GrandfatherDeceasedMaternal GrandmotherDeceasedMotherDeceasedPaternal GrandfatherDeceasedPaternal GrandmotherDeceasedSiblingDeceased Social History Tobacco UseTypesPacks/DayYears UsedDateSmoking Tobacco: FormerCigarettes1.527 [...] relatives?Twice a week07/25/2023How often do you attend scientology or rastafarian services?Patient suphquhr04/20/2023o you belong to any clubs or organizations such as scientology groups, unions, fraternal or athletic batool ups, or school groups?Patient ixdfrpga29/20/2023How often do you attend meetings of the clubs or organizations you belong to?Patient simtsjoy90/20/2023re you , , , , never , or living with a partner? Bjqmksq4207/25/2023UDIT-CAnswerDate RecordedQ1: How often do you have a drink containing alcohol?Never07/25/2023verage Number of DrinksNot on file07/25/2023 Frequency of Binge DrinkingNot on file07/25/2023Overall Financial Resource Strain (CARDIA)AnswerDate RecordedHow hard is it for you to pay for the very basics like food, housing, medical care, and heating?Hard07/25/2023HQ-2Answer Date RecordedPatient Health Questionnaire-2 Itthd471[facility] [place] [facility] Occup[facility] - Occupational Stress QuestionnaireAnswerDate [...] pay the mortgage or rent on time?Patient qohizfx9307/25/2023Number of Places Lived in the Last YearNot on file07/25/2023In the last 12 months, was there a time when you did not have a steady place to sleep or slept in [facility] (including now)?Patient ujduimh9807/25/2023Sex and Gender InformationValueDate RecordedSex Assigned at BirthNot on fileLegal Sex Male01/17/2023 7:18 PM EDTGender IdentityNot on fileSexual OrientationNot on file Last Filed Vital Signs Vital SignReadingTime TakenCommentsBlood Vwivxadf684/6809 10:26 AM EDT Fjygf670607/27/2025 10:26 AM YHRPjodcnipbus41.6 ??C (97.8 ??F)11/20/2023 9:57 AM ESTRespiratory Qvjn494703/10/2024 1:32 PM EDTOxygen Zifqauzims64%07/27/2025 10:26 AM EDTInhaled Oxygen Concentration--Facxyl468 kg (233 lb)07/27/2025 10:26 AM EDT Stwyyf977.3 cm (5' 11 )07/27/2025 10:26 AM EDTBody Mass Index32.509 10:26 AM EDT Plan of Treatment DateTypeDepartmentCare Team (Latest Contact Info)Eeltyhtolws28/08/2025 10:00 AM ESTOffice Visit [facility] [place] [facility] [address] [facility] [address] [place] [address] Antony Zamarripa MD [address] [facility] [address] [place] [address] 12/17/2025 11:30 AM ESTOffice Visit [facility] [place] [facility] [address] [facility] [address] [place] [address] Rafael Escalante MD [address] [address] Health MaintenanceDue DateLast DoneCommentsCT Sqrpzfednbzw1950Colonoscopy 1950FIT1950FOBT08/03/19502464Qiflcnxdqbctg1950COVID-19 Vaccine (3 - Pfizer risk series)512/07/2024, 04/08/2021, 1Colorectal Cancer Dofxdnhvo59/04/2025FIT-DNA, 2Diabetes: Hemoglobin A1C5007/27/2025, 11/12/2024, 08/07/2024, Additional history existsDiabetes: Urine Protein Nqtbgyrtv44/08/64913311/12/2024, 08/24/2023, 06/19/2019, Additional history existsDiabetes: Retinopathy Zbrwuwpni44/07/2026 06/11/2025, 02/28/2024, 09/20/2020, Additional history existsMedicare Annual Wellness (AWV), 07/26/2023, 07/24/2022, Additional history existsPneumococcal Vaccine: 65+ SshxcUmgrlypkk46/11/2020, 06/27/2019Influenza EmytbzsDtwbybxgk05/22/2025, 10/13/2024, 11/22/2023, Additional history exists Procedures Procedure NamePriorityDate/TimeAssociated DiagnosisCommentsCA ECHO DOPPLER MUTGVYFP88/09/2025 10:06 AM EDT POCT GLYCATED HEMOGLOBIN, OJULJOrrzhur66/22/2025 10:55 AM EDT Type 2 diabetes mellitus with diabetic neuropathy, without long-term current use of insulin (HCC) DIABETIC RETINOPATHY SCREENING - OU - BOTH IRQDIiqgdlg66/07/2025 MICROALBUMIN / CREATININE URINE AZAIFPngfwoq81/08/2025 11:11 AM EST Type 2 diabetes mellitus with hyperglycemia, without long-term current use of insulin (HCC) LAB COLOGUARD?? COLON CANCER WIALYAHybsoat97/04/2022 from Last 3 Months or Most Recently Relevant to Health Maintenance Results * CA ECHO DOPPLER COMPLETE (08/13/2025 10:06 AM EDT)Anatomical RegionLaterality ModalityOtherSpecimen (Source)Anatomical Location / LateralityCollection Method / VolumeCollection TimeReceived Time08/13/2025 10:06 AM EDT Narrative 08/13/2025 10:07 AM EDT [facility] ?[address] ? [place] [address] ? Cardiology Report ? Signed ? Patient: VINAYAK MADRIGAL ? MR#: [id number] ?? : 1950 ?Acct:[id number] ?? Age/Sex: 75 / M ?ADM Date: 08/13/25 ?? Loc: CARD ? Attending Dr: Radha Lockwood M.D. ? Ordering Physician: Radha Lockwood M.D. ?? Date of Service: 08/13/25 ?? Procedure(s): CA echo doppler complete ?? Accession Number(s): [id number] ? cc: ANTONY ZAMARRIPA ; Radha Lockwood M.D. ? Patient Name: ? VINAYAK MADRIGAL ? MR#: [id number] ? : 1950 ? Exam Date: 08/13/2025 ?? Ordering Doctor: DR. RADHA LOCKWOOD M.D. ? ECHOCARDIOGRAM REPORT ? PROCEDURE: ? CA ECHO DOPPLER COMPLETE ? INDICATIONS: ? Nonrheumatic mitral valve regurgitation ? COMPARISON: ? None. ? DESCRIPTION: ? COMPLETE ECHOCARDIOGRAM Real-time transthoracic ?? echocardiography with 2D, M-mode, spectral and color flow Doppler performed. ? QUALITY: ? Technical quality was good. ? LEFT VENTRICLE: ? Normal chamber size. Mild concentric left ventricular ?? hypertrophy. Global left ventricular systolic function is normal. ?? LV EF: ? Estimated left ventricular ejection fraction is 55-60%. ?? DIASTOLIC: ? Diastolic function is indeterminate. ?? ATRIAL SEPTUM: ? LEFT ATRIUM: ? Mild dilatation. ?? RIGHT ATRIUM: ? Mild dilatation. ?? RIGHT VENTRICLE: ? Normal chamber size. Normal right ventricular systolic ?? function. ? TRICUSPID VALVE: ? Normal mobility and thickness. No stenosis with trivial ?? regurgitation. Mild pulmonary hypertension. RVSP 35 mmHg ? MITRAL VALVE: ? Normal mobility and thickness. ?? No evidence of mitral valve ?? stenosis. ??There is no mitral annular calcification. Mild mitral ?? regurgitation. ? AORTIC VALVE: ? Normal trileaflet appearance. Thickened aortic valve. ? Normal leaflet mobility. ??No evidence of aortic valve stenosis. Trivial aortic ?? regurgitation. ? AORTIC ROOT: ? Mildly dilated, measuring 4.4 cm. The ascending aorta is ?? normal in size and measures 3.2 cm. ? PULMONIC VALVE: ? Normal thickness and mobility. No stenosis. Trivial ?? regurgitation. ? PERICARDIUM: ? No evidence of pericardial effusion. ? IVC: ? Collapses with inspiration. Normal size. ? PLEURA: ? CONCLUSION: ? 1. Mild concentric left ventricular hypertrophy with normal systolic function. ?? Estimated LVEF is 55 to 60%. ?? 2. Normal right ventricular size and systolic function. ?? 3. Mild biatrial dilatation. ?? 4. Mild mitral regurgitation. ?? 5. Mildly elevated right-sided pressures. ?? 6. Mildly dilated aortic root measuring 4.4 cm. ??Normal size ascending aorta. ? Adult Echocardiography Procedure Report ?? Left Ventricle ?? LVEDD (3.7 - 5.6 cm): ? 4.32 cm ?? LVESD (2.2 - 4.0 cm): ? 2.93 cm ?? LVIVS thickness (0.6 - 1.2 cm): ? 1.20 cm ?? LVPW thickness (0.5 - 1.0 cm): ? 1.22 cm ?? e': ? 0.07 m/s ?? E - e': ? 12.06 ?? LVOT Max Gradient: ? 2.99 mm[Hg] ?? LVOT Area (cm2): ? 0.86 m/s ?? Peak Velocity (LVOT): ? 0.86 m/s ?? Mean Velocity (LVOT): ? 0.52 m/s ?? LVOT Diameter ? 2.21 cm ?? Left Ventricular Ejection Fraction: ? 55-60 % ?? Left Atrium ?? LA Volume Index (2D A2C): ? 44.38 ml/m2 ?? Left Atrium Systolic Dimension: ? 4.52 cm ?? Mitral Valve ?? MV E to A Ratio: ? 0.87 ?? Mitral Valve A-Wave Peak Velocity: ? 0.97 m/s ?? Mitral Valve E-Wave Peak Velocity: ? 0.84 m/s ?? Right Ventricle ?? RV Internal Diastolic Dimension: ? 3.95 cm ?? Aorta ?? AO Root Diam: ? 4.44 cm ?? Ascending Ao Diam: ? 3.20 cm ?? Aortic Valve ?? AoV Area (Peak Elan): ? 2.42 cm2, 2.42 cm2 ?? AoV Area (VTI): ? 2.23 cm2, 2.23 cm2 ?? Peak Velocity(Antegrade Flow): ? 1.37 m/s ?? Peak Gradient(Antegrade Flow): ? 7.50 mm[Hg] ?? Mean Velocity(Antegrade Flow): ? 0.94 m/s ?? Mean Gradient(Antegrade Flow): ? 4.01 mm[Hg] ?? Velocity Time Integral: ? 35.31 cm ?? Tricuspid Valve ?? Peak Velocity (Regurgitant Flow): ? 2.56 m/s, 2.50 m/s, 2.84 m/s ?? Pulmonic Valve ?? Mean Gradient: ? 1.21 mm[Hg], 1.40 mm[Hg] ?? Mean Velocity: ? 0.51 m/s, 0.55 m/s ?? Peak Velocity: ? 0.84 m/s ?? Peak Gradient: ? 2.87 mm[Hg], 2.82 mm[Hg] ?? Right Atrium ?? Right Atrium Systolic Pressure: ? 42.77 ml, 42.77 ml ? Dictated by: Nicolette Valdez M.D. on 08/13/2025 at 09:59 ? Approved by: Nicolette Valdez M.D. on 08/13/2025 at 10:06 ? Dictated By: ?NICOLETTE VALDEZ ? Signed By: ?10/09/25 1007 ? DD/ 1006 ? TD/TT: ? Die Try Out Worker Stamping: Procedure Note Radiology, Radiologist, MD - 08/13/2025 [place] [address] Cardiology Report Signed Patient: VINAYAK MADRIGAL WMR#: [id number] : 1950Acct:[id number] Age/Sex: 75 / MADM Date: 08/13/25 Loc: CARD Attending Dr: Radha Lockwood M.D. Ordering Physician: Radha Lockwood M.D. Date of Service: 08/13/25 Procedure(s): CA echo doppler complete Accession Number(s): [id number] cc: ANTONY ZAMARRIPA ; Radha Lockwood M.D. Patient Name: VINAYAK MADRIGAL MR#: [id number] : 1950 Exam Date: 08/13/2025 Ordering Doctor: DR. RADHA LOCKWOOD M.D. ECHOCARDIOGRAM REPORT PROCEDURE: CA ECHO DOPPLER COMPLETE INDICATIONS: Nonrheumatic mitral valve regurgitation COMPARISON: None. DESCRIPTION: COMPLETE ECHOCARDIOGRAM Real-time transthoracic echocardiography with 2D, M-mode, spectral and color flow Dopplerperformed. QUALITY: Technical quality was good. LEFT VENTRICLE: Normal chamber size. Mild concentric left ventricular hypertrophy. Global left ventricular systolic function is normal. LV EF: Estimated left ventricular ejection fraction is 55-60%. DIASTOLIC: Diastolic function is indeterminate. ATRIAL SEPTUM: LEFT ATRIUM: Mild dilatation. RIGHT ATRIUM: Mild dilatation. RIGHT VENTRICLE: Normal chamber size. Normal right ventricularsystolic function. TRICUSPID VALVE: Normal mobility and thickness. No stenosis withtrivial regurgitation. Mild pulmonary hypertension. RVSP 35 mmHg MITRAL VALVE: Normal mobility and thickness. No evidence of mitralvalve stenosis. There is no mitral annular calcification. Mild mitral regurgitation. AORTIC VALVE: Normal trileaflet appearance. Thickened aortic valve. Normal leaflet mobility. No evidence of aortic valve stenosis. Trivialaortic regurgitation. AORTIC ROOT: Mildly dilated, measuring 4.4 cm. The ascending aorta is normal in size and measures 3.2 cm. PULMONIC VALVE: Normal thickness and mobility. No stenosis. Trivial regurgitation. PERICARDIUM: No evidence of pericardial effusion. IVC: Collapses with inspiration. Normal size. PLEURA: CONCLUSION: 1. Mild concentric left ventricular hypertrophy with normal systolicfunction. Estimated LVEF is 55 to 60%. 2. Normal right ventricular size and systolic function. 3. Mild biatrial dilatation. 4. Mild mitral regurgitation. 5. Mildly elevated right-sided pressures. 6. Mildly dilated aortic root measuring 4.4 cm. Normal size ascendingaorta. Adult Echocardiography Procedure Report Left Ventricle LVEDD (3.7 - 5.6 cm): 4.32 cm LVESD (2.2 - 4.0 cm): 2.93 cm LVIVS thickness (0.6 - 1.2 cm): 1.20 cm LVPW thickness (0.5 - 1.0 cm): 1.22 cm e': 0.07 m/s E - e': 12.06 LVOT Max Gradient: 2.99 mm[Hg] LVOT Area (cm2): 0.86 m/s Peak Velocity (LVOT): 0.86 m/s Mean Velocity (LVOT): 0.52 m/s LVOT Diameter 2.21 cm Left Ventricular Ejection Fraction: 55-60 % Left Atrium LA Volume Index (2D A2C): 44.38 ml/m2 Left Atrium Systolic Dimension: 4.52 cm Mitral Valve MV E to A Ratio: 0.87 Mitral Valve A-Wave Peak Velocity: 0.97 m/s Mitral Valve E-Wave Peak Velocity: 0.84 m/s Right Ventricle RV Internal Diastolic Dimension: 3.95 cm Aorta AO Root Diam: 4.44 cm Ascending Ao Diam: 3.20 cm Aortic Valve AoV Area (Peak Elan): 2.42 cm2, 2.42 cm2 AoV Area (VTI): 2.23 cm2, 2.23 cm2 Peak Velocity(Antegrade Flow): 1.37 m/s Peak Gradient(Antegrade Flow): 7.50 mm[Hg] Mean Velocity(Antegrade Flow): 0.94 m/s Mean Gradient(Antegrade Flow): 4.01 mm[Hg] Velocity Time Integral: 35.31 cm Tricuspid Valve Peak Velocity (Regurgitant Flow): 2.56 m/s, 2.50 m/s, 2.84 m/s Pulmonic Valve Mean Gradient: 1.21 mm[Hg], 1.40 mm[Hg] Mean Velocity: 0.51 m/s, 0.55 m/s Peak Velocity: 0.84 m/s Peak Gradient: 2.87 mm[Hg], 2.82 mm[Hg] Right Atrium Right Atrium Systolic Pressure: 42.77 ml, 42.77 ml Dictated by: Nicolette Valdez M.D. on 08/13/2025 at 09:59 Approved by: Nicolette Valdez M.D. on 08/13/2025 at 10:06 Dictated By: NICOLETTE VALDEZ Signed By:08/13/25 1007 DD/ 1006 TD/TT: Die Try Out Worker Stamping: Authorizing ProviderResult TypeResult StatusGeneric External Data Provider CLINISYNC IMAGINGFinal Result * POCT Glycated hemoglobin, total (07/27/2025 10:55 AM EDT)ComponentValueRef RangeTest MethodAnalysis TimePerformed AtPathologist SignatureHemoglobin A1C 7.3Specimen (Source)Anatomical Location / LateralityCollection Method / Volume Collection TimeReceived KohkNdwny24/22/2025 10:55 AM EDT Narrative Authorizing ProviderResult TypeResult StatusAntony Zamarripa MDPOINT OF CARE TEST ENTER/EDIT ORDERABLESFinal Result * Diabetic Retinopathy Screening - OU - Both Eyes (06/11/2025)ComponentValueRef RangeTest MethodAnalysis TimePerformed AtPathologist SignatureRESULTSndr Anatomical RegionLateralityModalityHeadOtherSpecimen (Source)Anatomical Location / LateralityCollection Method / VolumeCollection TimeReceived Time 06/11/2025 Narrative Authorizing ProviderResult TypeResult Shayan Zamarripa MDOPH PHOTOGRAPHY Final Result * Microalbumin / creatinine urine ratio (11/12/2024 11:11 AM EST)ComponentValue Ref RangeTest MethodAnalysis TimePerformed AtPathologist SignatureCREATININE, RANDOM RRDTQ5837 - 320 mg/dLQUESTALBUMIN, URINE0.6See Note: mg/dLQUESTComment: Reference Range: Reference Range Not established ALBUMIN/CREATININE RATIO, RANDOM URINE7<30 mg/g creatQUESTComment: The ADA defines abnormalities in albumin excretion as follows: Albuminuria Category ?Result (mg/g creatinine) Normal to Mildly increased <30 Moderately increased ? 30-299 Severely increased > OR = 300 The ADA recommends that at least two of three specimens collected within a 3-6 month period be abnormal before considering a patient to be within a diagnostic category. Specimen (Source)Anatomical Location / LateralityCollection Method / Volume Collection TimeReceived TimeUrineUrine specimen obtained by clean catch procedure / Aoxgrdw2211/12/2024 11:11 AM EST11/12/2024 11:11 AM EST Narrative [facility] - 11/13/2024 2:53 PM EST SPLIT 08/19/2024 FROM [id number] Resulting Agency Comment Performing Organization Information ?Site ID: [id number] ?Name: [facility] ?Address: [address] [place] [address], [address] [place] [id number] ?Director: Jalil Garcia MD Authorizing ProviderResult TypeResult StatusAntony RUBIN URINE ORDERABLESFinal ResultPerforming OrganizationAddressCity/State/ZIP CodePhone Number [facility] * Cologuard?? colon cancer screening (08/08/2022)ComponentValueRef RangeTest MethodAnalysis TimePerformed AtPathologist SignatureCOLOGUARD RESULT REPORTABLENegativeNegativeNOMS LEGACY EXTERNAL LABComment: NEGATIVE TEST RESULT. A negative Cologuard result indicates a low likelihood that a colorectal cancer (CRC) or advanced adenoma (adenomatous polyps with more advanced pre-malignant features) ??is present. The chance that a person with a negative Cologuard test has a colorectal cancer is less than 1in 1500 (negative predictive value >99.9%) or has an advanced adenoma is less than 5.3% (negative predictive value 94.7%). These data are based on a prospective cross-sectional study of 10,000individuals at average risk for colorectal cancer who were screened with both Cologuard and colonoscopy. (Faraz Arzate. et al, N Engl J Med 2014;370(14):5393-5048) The normal value (reference range) for this assay is negative. COLOGUARD RE-SCREENING RECOMMENDATION: Periodic colorectal cancer screening is an important part ofpreventive healthcare for asymptomatic individuals at average risk for colorectal cancer. ??Following a negative Cologuard result, the [place] [employer] and U.S. Multi-Society Task Force screening guidelines recommend a Cologuard re-screening interval of 3 years. References: [place] [employer] Guideline for Colorectal Cancer Screening: https://www.cancer.or g/cancer/psnbm-ayfjxl-wjkyry/qwmpwhngu-lolxrpgpy-yyvujbx/acs-recommendations.htm elissa; Dylan HULL, Krissy KNAPP, Sue CARCAMO, Colorectal Cancer Screening: Recommendations for Physicians and Patients from the U.S. Multi-Society Task Force on Colorectal Cancer Screening , Am J Gastroenterology 2017; 112:3471-5750. TEST DESCRIPTION: Composite algorithmic analysis of stool DNA-biomarkers with hemoglobin immunoassay. ?? Quantitative values of individual biomarkers are not reportable and are not associated with individual biomarker result reference ranges. Cologuard is intended for colorectal cancer screening ofadults of either sex, 45 years or older, who are at average-risk for colorectal cancer (CRC). Cologuard has been approved for use by the U.S. FDA. The performance of Cologuard was established in a cross sectional study of average-risk adults aged 50-84. Cologuard performance in patients ages 45 to 49 years was estimated by sub-group analysis of near-age groups. Colonoscopies performed for a positive result may find as the most clinically significant lesion: colorectal cancer [4.0%], advanced adenoma (including sessile serrated polyps greater than or equal to 1cm diameter) [20%] or non- advanced adenoma [31%]; or no colorectal neoplasia [45%]. These estimates are derived from a prospective cross-sectional screening study of 10,000 individuals at average risk for colorectal cancer who were screened with both Cologuard and colonoscopy. (Faraz Arzate. et al, N Engl J Med 2014;370(14):3945-5708.) Cologuard may produce a false negative or false positive result (no colorectal cancer or precancerous polyp present at colonoscopy follow up). A negative Cologuard test result does not guarantee the absence of CRC or advanced adenoma (pre-cancer). The current Cologuard screening interval is every 3 years. ([place] [employer] and U.S. [employer]). Cologuard performance data in a 10,000 patient pivotal study using colonoscopy as the reference method can be accessed at the following location: [email or web address]. Additional description of the Cologuard test process, warnings and precautions can be found at [email or web address]. Specimen (Source)Anatomical Location / LateralityCollection Method / Volume Collection TimeReceived Time08/08/2022 Narrative Authorizing ProviderResult TypeResult StatusKarrie [facility] ORDERABLESFinal ResultPerforming OrganizationAddressCity/State/ZIP CodePhone Number [facility] from Last 3 Months or Most Recently Relevant to Health Maintenance Insurance Care Teams Team MemberRelationshipSpecialtyStart DateEnd Date Antony Zamarripa MD [address] [facility] [address] [place] [address] PCP - GeneralInternal Medicine03/13/23 Antony Zamarripa MD [address] [facility] [address] [place] [address] PCP - ACO [facility]01/04/24
--- OUTSIDE RECORDS SUMMARY | 2025-09-17 05:27 | XMS_ITS | CCD ---
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 Name Role Phone PHYSICIAN, DEFAULT Unavailable Unavailable PHYSICIAN, DEFAULT Unavailable Unavailable PHYSICIAN, DEFAULT Unavailable Unavailable PHYSICIAN, DEFAULT Unavailable Unavailable BELÉN CORRALES Admitting Unavailable BELÉN CORRALES Attending Unavailable VICK, DR FELICIANO Primary Care Unavailable JARROD, DR MODE Souza Consulting Unavailable BELÉN CORRALES Consulting Unavailable SUZANNA RAMON Admitting Unavailable RAMON BRISENO Attending Unavailable VICK, DR FELICIANO Primary Care Unavailable DREXEL, DR LUIS MANUEL [place] Consulting Unavailable RAMON BRISENO Consulting Unavailable Antony Zamarripa MD Primary Care Provider Antony Zamarripa MD Unavailable ANTONY ZAMARRIPA Primary Care Physician Al-Marrawi, Mhd Yaser Attending Unavailabl e Al-Marrawi, Mhd Yaser Admitting Unavailabl e Al-Marrawi, Mhd Yaser Attending Unavailabl e Al-Marrawi, Mhd Yaser Admitting Unavailabl e Al-Marrawi, Mhd Yaser Attending Unavailabl e Bennie Perdomo Referring Unavailable Al-Marrawi, Mhd Yaser Attending Unavailabl e Al-Marrawi, Mhd Yaser Attending Unavailabl e Al-Marrawi, Mhd Yaser Admitting Unavailabl e ANTONY ZAMARRIPA Attending Unavailable BENNIE PERDOMO Attending Unavailable ANTONY ZAMARRIPA Attending Unavailable ANTONY ZAMARRIPA Attending Unavailable BENNIE PERDOMO Attending Unavailable BENNIE PERDOMO Attending Unavailable ANTONY ZAMARRIPA Attending Unavailable Juliann To Unavailable RADHA CAVAZOS Attending Unavailable RADHA CAVAZOS Attending Unavailable Allergies Allergy ClassificationReported Allergen(s)Allergy TypeDate of OnsetReaction(s) Facility (9 sources)Penicillins; Translations: [penicillins]Drug allergy (disorder) 39-23-1507Fwfnbgxk of skin (disorder)[facility] Repository (20 sources)Penicillin GDrug Grpkoua15-54-1482RlwkwyqSentara [facility] Medications Current Medications MedicationDrug Class(es)DatesSig (Normalized)Sig (Original)[id number] 200 actuat albuterol 0.09 mg/actuat metered dose inhaler (3 sources)beta2-Adrenergic AgonistStart: 62-84-4119hjio 2 puff(s) by inhalation every six hoursalbuterol HFA 90 mcg/act inhaler Inhale 2 puffs every 6 (six) hours if needed 05/19/2025 ActiveAlpha1-Proteinase Inhibitor (PROLASTIN IV) (7 sources)Alpha1-Proteinase Inhibitor (PROLASTIN IV) Infuse into a venous catheter every 7 (seven) days Per dr baer Activeamantadine hydrochloride 100 mg oral tablet (20 sources)Influenza A M2 Protein InhibitorStart: 04-08-2024 End: 22-27-5273maewlcpbzm (Symmetrel) 100 MG tablet Indications: Memory loss , Tremor , Parkinsonism, unspecified Parkinsonism type (HCC) Take 1 tablet (100 mg) by mouth in the morning and 1 tablet (100 mg) before bedtime. 1 po daily for 1 week then can increase to bid. 60 tablet 11 08/14/2024 08/14/2025 Active amLODIPine 5 mg oral tablet (20 sources)Dihydropyridine Calcium Channel BlockerStart: 07-31-2024 End: 17-60-4881dgty 1 tablet by mouth in the morningamLODIPine (Norvasc) 5 MG tablet Take 5 mg by mouth in the morning. 07/31/2024 Activeapixaban 5 mg oral tablet (20 sources)Factor Xa InhibitorStart: 75-21-9598etjtvqvs (Eliquis) 5 MG tablet Indications: Paroxysmal atrial fibrillation (HCC) TAKE 1 TABLET TWICE A DAY 200 tablet 3 04/30/2025 ActiveStart: 73-16-2911schycdzu (Eliquis) 5 MG tablet Indications: Paroxysmal atrial fibrillation (CMS/HCC) TAKE 1 TABLET TWICE A DAY 200 tablet 3 01/14/2024 Activeatorvastatin 40 mg oral tablet (20 sources)HMG-CoA Reductase InhibitorStart: 65-81-5895injo 1 tablet by mouth once dailyatorvastatin 40 mg Tab 40 mg = 1 tab(s), Oral, Daily, # 30 tab(s), Refills(s) 0 Start Date: 09/22/24 Status: Orderedbenazepril hydrochloride 40 mg oral tablet (20 sources)Angiotensin Converting Enzyme InhibitorStart: 07-31-2024 End: 39-41-8213ucac 1 tablet by mouth in the morningbenazepril (Lotensin) 40 MG tablet Take 40 mg by mouth in the morning. 07/31/2024 ActiveBreztri Aerosphere (2 sources)Start: 45-91-5009Dfjqtqn Aerosphere 2 inh, BID, Refill(s) 0 Start Date: 09/24/24 Status: Nhocodt312 actuat budesonide 0.16 mg/actuat / formoterol fumarate 0.0048 mg/actuat / glycopyrrolate 0.009 mg/actuat metered dose inhaler (13 sources)Corticosteroid, beta2-Adrenergic AgonistStart: 09-09-2024 Oiqaaum-Knjzwquxzus-Jtftajprym (Breztri Aerosphere) 160-9-4.8 MCG/ACT aerosol Inhale 2 puffs every 12 (twelve) hours 09/09/2024 Activecarvedilol 12.5 mg oral tablet (20 sources)alpha-Adrenergic Gabriella, beta-Adrenergic BlockerStart: 09-22-2024 take 1 tablet by mouth twice dailycarvedilol 12.5 mg Tab 12.5 mg = 1 tab(s), Oral, BID, # 60 tab(s), Refills(s) 0 Start Date: 09/22/24 Status: OrderedStart: 01-14-2024 End: 88-32-1433irzkfohhsq (Coreg) 12.5 MG tablet Indications: Benign essential hypertension (CMS/HCC) TAKE 1 TABLET TWICE A DAY 200 tablet 3 01/14/2024 08/07/2024 Discontinued (Dose adjustment)take 1 tablet by mouth in the morning carvedilol (Coreg) 6.25 MG tablet Take 6.25 mg by mouth in the morning and 6.25 mg in the evening. Take with meals. Activecelecoxib 200 mg oral capsule (20 sources)Nonsteroidal Anti-inflammatory DrugStart: 08-01-2023 End: 63-78-5438xwph 1 capsule by mouth once dailycelecoxib (CeleBREX) 200 MG capsule Indications: Displacement of cervical intervertebral disc Take 1 capsule (200 mg) by mouth Daily 90 capsule 3 08/11/2024 08/11/2025 Activeempagliflozin 12.5 mg / metFORMIN hydrochloride 1000 mg oral tablet (20 sources)Biguanide, Sodium-Glucose Cotransporter 2 InhibitorStart: 08-01-2023 End: 90-62-2089omhl 1 tablet by mouth in the morningempagliflozin-metFORMIN (Synjardy) 12.5-1000 MG Indications: Type 2 diabetes mellitus with hyperglyc emia, without long-term current use of insulin (HCC) Take 1 tablet by mouth in the morning and 1 tablet in the evening. Take with meals. 180 tablet 3 11/12/2024 07/27/2025 Discontinuedfolic acid 1 mg oral tablet (20 sources)Start: 06-19-2024 End: 39-03-4186ntzx 1 tablet by mouth once dailyfolic acid (Folvite) 1 MG tablet Indications: B12 deficiency , Folic acid deficiency Take 1 tablet (1,000 mcg) by mouth Daily 90 tablet 1 08/14/2024 Activeglimepiride 2 mg oral tablet (20 sources)SulfonylureaStart: 08-01-2023 End: 30-53-0070yyfssyshopw (Amaryl) 2 MG tablet Indications: Type 2 diabetes mellitus with hyperglycemia, without long-term current use of insulin (HCC) TAKE 1 TABLET IN THE MORNING AND 1 TABLET IN THE EVENING WITHMEALS 180 tablet 3 10/13/2024 ActiveMultiple Vitamin (Multivitamin) tablet (20 sources)take 1 tablet by mouth once dailyMultiple Vitamin (Multivitamin) tablet Take 1 tablet by mouth Daily Activephenazopyridine hydrochloride 200 mg oral tablet (4 sources)Start: 59-76-6674Yqvyzkrh 200 mg Tab 200 mg = 1 tab(s), Oral, As Directed Start Date: 05/03/19 Status: OrderedProlastin-C (2 sources)Start: 66-93-2219Pwvrgwegb-C qWeek, Refills(s) 0 Start Date: 09/24/24 Status: OrderedSITagliptin 50 mg oral tablet (20 sources)Dipeptidyl Peptidase 4 InhibitorStart: 73-30-8208kehh 1 tablet by mouth in the morningSITagliptin (Januvia) 50 MG tablet Indications: Uncontrolled type 2 diabetes mellitus with hyperglycemia (HCC) Take 1 tablet (50 mg) by mouth in the morning and 1 tablet (50 mg) before bedtime. 200 tablet 3 09/11/2024 ActiveStart: 08-06-2024 End: 54-90-7371vkuz 1 tablet by mouth once dailySITagliptin (Januvia) 50 MG tablet Indications: Uncontrolled type 2 diabetes mellitus with hyperglycemia (CMS/HCC) Take 1 tablet (50 mg) by mouth Daily 90 tablet 3 08/11/2024 09/11/2024 Discontinued (Reorder)Start: 69-08-3797brqo 1 tablet by mouth once daily SITagliptin (Januvia) 50 MG tablet Indications: Uncontrolled type 2 diabetes mellitus with hyperglycemia (CMS/HCC) Take 1 tablet (50 mg) by mouth Daily 90 tablet 02/20/2024 Active Completed/Discontinued Medications MedicationDrug Class(es)DatesSig (Normalized)Sig (Original)amiodarone hydrochloride 200 mg oral tablet (8 sources)AntiarrhythmicStart: 09-11-2023 End: 16-34-6320pssl 1 tablet by mouth in the morningamiodarone (Pacerone) 200 MG tablet Take 1 tablet by mouth in the morning and 1 tablet before bedtime. 09/11/2023 08/07/2024 DiscontinuedamLODIPine 10 mg / benazepril hydrochloride 20 mg oral capsule (8 sources)Dihydropyridine Calcium Channel Gabriella, Angiotensin Converting Enzyme InhibitorStart: 08-01-2023 End: 75-28-5519Unlkvm 10-20 MG capsule Indications: Benign essential hypertension (CMS/HCC) TAKE 1 CAPSULE DAILY 90 capsule 3 08/01/2023 08/07/2024 Discontinuedfluticasone propionate 0.05 mg/actuat metered dose nasal spray (14 sources)CorticosteroidStart: 07-26-2022 End: 58-87-0054szog 1 spray(s) nasal route in the morningfluticasone (Flonase) 50 MCG/ACT nasal spray Administer 1 spray into each nostril in the morning and 1 spray before bedtime. 07/26/2022 09/16/2024 Discontinued (Med list cleanup)30 actuat fluticasone furoate 0.1 mg/actuat / umeclidinium 0.0625 mg/actuat / vilanterol 0.025 mg/actuat dry powder inhaler (5 sources)Anticholinergic, Corticosteroid, beta2-Adrenergic AgonistStart: 07-30-2024 End: 22-82-4133fpws 1 puff(s) by inhalation once daily Pkxurlpkoye-Yznhxmksu-Vypmwa (Trelegy Ellipta) 100-62.5-25 MCG/ACT aerosol powder Inhale 1 puff Daily 07/30/2024 09/11/2024 Discontinuedvitamin b12 1 mg oral capsule (8 sources)Vitamin S17Gldtf: 06-19-2024 End: 47-29-7521bgxa 1 capsule by mouth once dailyCyanocobalamin 1000 MCG capsule Indications: B12 deficiency , Folic acid deficiency Take 1,000 mg by mouth Daily 30 capsule 2 06/19/2024 08/07/2024 Discontinued Problems Active Problems Problem ClassificationProblemDateDocumented DateEpisodic/ChronicAcquired foot deformities (6 sources)Left foot drop; Translations: [Foot drop, left foot]09-16-2024 EpisodicAortic; peripheral; and visceral artery aneurysms (20 sources)Abdominal aortic aneurysm, without rupture; Translations: [Abdominal aortic aneurysm without rupture]Onset: 41-19-6043QpkpikxMdqfeax dysrhythmias (20 sources)Cardiac arrhythmia; Translations: [Cardiac arrhythmia, unspecified] Onset: 340150-99-4823QldaiwxJuodogx kidney disease (4 sources)Chronic kidney disease stage 3A ; Translations: [Chronic kidney disease, stage 3a (HCC) (CMS/HCC)]26-80-8682RujqwloJuhggqu obstructive pulmonary disease and bronchiectasis (20 sources)Pulmonary emphysema in alpha-1 PI deficiency; Translations: [Other emphysema]Onset: 965179-21-6429HodtohcDueqcgpq mellitus with complications (20 sources)Peripheral neuropathy due to type 2 diabetes mellitus; Translations: [Type 2 diabetes mellitus withdiabetic polyneuropathy]Onset: 07-25-2023 39-05-9686OmwgrbdUuxqnxoyp of lipid metabolism (20 sources)Pure hypercholesterolemia; Translations: [Pure hypercholesterolemia, unspecified]Onset: 04-09-2020 Resolved: 097036-52-6353GwkhgbmYzupuhgey hypertension (20 sources)Benign essential hypertension; Translations: [Essential (primary) hypertension]Onset: 730383-98-6961TzuwojlMfbas valve disorders (2 sources)Nonrheumatic mitral (valve) insufficiency; Translations: [Nonrheumatic mitral (valve) insufficiency]Onset: 86-01-6729RhfgbvbHuiygmklkru of prostate (20 sources)Benign prostatic hypertrophy without outflow obstruction; Translations: [Benign prostatic hyperplasia without lower urinary tract symptoms]Onset: 659560-23-1815FurlhqxDrjgoliekrgv with complications and secondary hypertension (20 sources)Hypertensive heart disease; Translations: [Hypertensive heart disease without heart failure]Onset: 895678-41-2147FrgtcosUfuvtxxg disorders (1 source)Common variable agammaglobulinemia; Translations: [Nonfamilial hypogammaglobulinemia]Onset: 55-69-1761SwmjbxcYeqkb and ill-defined heart disease (20 sources)Diastolic dysfunction; Translations: [Other ill-defined heart diseases]Onset: 278272-58-8200FpjqlhvPatqf and ill-defined heart disease (20 sources)Left ventricular hypertrophy; Translations: [Cardiomegaly]Onset: 015384-01-6493OmjvoprNsepn and ill-defined heart disease (20 sources)Cardiomegaly; Translations: [Cardiomegaly]Onset: 06-26-2018 12-57-3714YdyyureSedsx hereditary and degenerative nervous system conditions (4 sources)Essential tremor; Translations: [Essential tremor]96-14-4538Enntyzk Other nervous system disorders (1 source)Polyneuropathy; Translations: [Polyneuropathy, unspecified]Onset: 42-11-7373EeqbffaOahmp nervous system disorders (7 sources)Tremor; Translations: [Tremor, unspecified]49-51-4859FqapgfrfQopyn nervous system disorders (6 sources)Numbness and tingling sensation of skin; Translations: [Anesthesia of skin]32-77-5207NofghnsoErdyg nervous system disorders (2 sources)Impairment of balance; Translations: [Other abnormalities of gait and mobility]82-81-6751QsnyajciTmlqe nutritional; endocrine; and metabolic disorders (20 sources)Body mass index 30+ - obesity; Translations: [Obesity, unspecified] Onset: 502620-92-2665HsqrazhZtdjd nutritional; endocrine; and metabolic disorders (20 sources)Rhjbj-3-jmnyteisweq deficiency; Translations: [Kqwjo-2-wimayqoxnvx deficiency]Onset: 410779-03-5198DdkkkqyIwlzj screening for suspected conditions (not mental disorders or infectious disease) (20 sources)CT of chest abnormal; Translations: [Abnormal findings on diagnostic imaging of other specified body structures]Onset: hronic Other screening for suspected conditions (not mental disorders or infectious disease) (8 sources)Patient encounter status; Translations: [Encounter for screening for malignant neoplasm of prostate]25-75-1582ZthicnkoIavuu upper respiratory disease (20 sources)Allergic rhinitis; Translations: [Other allergic rhinitis]Onset: 186622-48-0420HqrfyejYbvei upper respiratory infections (20 sources)Chronic pansinusitis; Translations: [Chronic pansinusitis]Onset: 774255-68-4688IqnnxjpZtajrcvd codes; unclassified (20 sources)Obstructive sleep apnea syndrome; Translations: [Obstructive sleep apnea (adult) (pediatric)]Onset: 933403-29-1073XvsjszcAcaoyudy codes; unclassified (20 sources)Hypersomnia disorder related to a known organic factor; Translations: [Hypersomnia due to medical condition]Onset: ChronicResidual codes; unclassified (20 sources)Hypersomnia; Translations: [Hypersomnia, unspecified]Onset: 111599-36-4891EllgxebNlkwipuk codes; unclassified (13 sources)Amnesia; Translations: [Other amnesia]11-38-4580XcjyzpbyNhwptlunstp; intervertebral disc disorders; other back problems (20 sources)Cervical spondylosis; Translations: [Spondylosis without myelopathy or radiculopathy, cervical region]Onset: 188350-46-7765JvxafadLzambzoeejwi (9 sources)Parkinsonism; Translations: [Parkinsonism, unspecified Parkinsonism type (CMS/HCC)]06-27-4705YktiewfVrhdsddidnhe (3 sources)ABDOMINAL AA W/O RUPTURE UNSPCIFIED; Translations: [ABDOMINAL AA W/O RUPTURE UNSPCIFIED]Onset: 81-47-2875Uwbhwfawvdbg (4 sources)Finding of sensation of kyzgzzy32-33-4452Pqdzzljppkhz (1 source)Abdominal aortic aneurysm, without rupture, unspecified; Translations: [Abdominal aortic aneurysm, without rupture, unspecified]Onset: 12-11-2023 Past or Other Problems Problem ClassificationProblemDateDocumented DateEpisodic/ChronicGenitourinary symptoms and ill-defined conditions (20 sources)Delay when starting to pass urine; Translations: [Hesitancy of micturition]Onset: 844513-49-6904AvpzzkxpKvqfqhctgfh deficiencies (20 sources)Folic acid deficiency; Translations: [Deficiency of other specified B group vitamins]Onset: 102601-43-3888OfrhpizxZclxj connective tissue disease (20 sources)Impingement syndrome of shoulder region; Translations: [Impingement syndrome of unspecified shoulder]Onset: 177400-93-1739LcybrkzoShmnz connective tissue disease (20 sources)Diastasis recti; Translations: [Separation of muscle (nontraumatic), other site]Onset: 246043-19-8986UibqtwctEnrop lower respiratory disease (20 sources)Multiple nodules of lung; Translations: [Other nonspecific abnormal finding of lung field]Onset: 999670-51-9406OhtzqssiPdsem nervous system disorders (20 sources)Finding of hand region; Translations: [Tremor, unspecified]Onset: 468958-40-6328AlzacuftMfqvy nutritional; endocrine; and metabolic disorders (20 sources)Metabolic syndrome X; Translations: [Dysmetabolic syndrome X]Onset: 07-25-2023 Resolved: 101588-64-7191PycjmcsKerxjudx codes; unclassified (20 sources)Poor short-term memory ; Translations: [Other amnesia]Onset: 672767-80-7705JkzhhxhyCquykhiygqy; intervertebral disc disorders; other back problems (20 sources)Cervical radiculopathy; Translations: [Radiculopathy, cervical region]Onset: 466978-64-5487NdwmhpefUiiicdcrrqab (1 source)ABDOMINAL AA W/O RUPTURE UNSPCIFIED; Translations: [ABDOMINAL AA W/O RUPTURE UNSPCIFIED]Onset: 91-19-0045Tratkbvxcado (1 source)Abdominal aortic aneurysm, without rupture, unspecified; Translations: [Abdominal aortic aneurysm, without rupture, unspecified]Onset: 11-17-2024 Results Test NameValueInterpretationReference FquffMlyrndjm41vz 41-91-174338MqhmqMD Cleopatra Jung MA Aortic root dilatation appears to be stable on this echo, also the mitral regurgitation and pulmonary hypertension and the left ventricular function are also stable. Continue current management Spoke to patient to advise him of his Echo results per Dr. Harriss request. Patient verbalized understanding.[facility]CA ECHO DOPPLER COMPLETEon [id number], [place] [address] Cardiology Report Signed Patient: LUCIO MADRIGAL MR#: [id number] : 1950 Acct:[id number] Age/Sex: 75 / M ADM Date: 08/13/25 Loc: CARD Attending Dr: Radha Cavazos M.D. Ordering Physician: Radha Cavazos M.D. Date of Service: 08/13/25 Procedure(s): CA echo doppler complete Accession Number(s): [id number] cc: ANTONY ZAMARRIPA ; Radha Cavazos M.D. Patient Name: LUCIO MADRIGAL MR#: [id number] : 1950 Exam Date: 08/13/2025 Ordering Doctor: DR. RADHA CAVAZOS M.D. ECHOCARDIOGRAM REPORT PROCEDURE: CA ECHO DOPPLER COMPLETE INDICATIONS: Nonrheumatic mitral valve regurgitation COMPARISON: None. DESCRIPTION: COMPLETE ECHOCARDIOGRAM Real-time transthoracic echocardiography with 2D, M-mode, spectral and color flow Doppler performed. QUALITY: Technical quality was good. LEFT VENTRICLE: Normal chamber size. Mild concentric left ventricular hypertrophy. Global left ventricular systolic function is normal. LV EF: Estimated left ventricular ejection fraction is 55-60%. DIASTOLIC: Diastolic function is indeterminate. ATRIAL SEPTUM: LEFT ATRIUM: Mild dilatation. RIGHT ATRIUM: Mild dilatation. RIGHT VENTRICLE: Normal chamber size. Normal right ventricular systolic function. TRICUSPID VALVE: Normal mobility and thickness. No stenosis with trivial regurgitation. Mild pulmonary hypertension. RVSP 35 mmHg MITRAL VALVE: Normal mobility and thickness. No evidence of mitral valve stenosis. There is no mitral annular calcification. Mild mitral regurgitation. AORTIC VALVE: Normal trileaflet appearance. Thickened aortic valve. Normal leaflet mobility. No evidence of aortic valve stenosis. Trivial aortic regurgitation. AORTIC ROOT: Mildly dilated, measuring 4.4 cm. The ascending aorta is normal in size and measures 3.2 cm. PULMONIC VALVE: Normal thickness and mobility. No stenosis. Trivial regurgitation. PERICARDIUM: No evidence of pericardial effusion. IVC: Collapses with inspiration. Normal size. PLEURA: CONCLUSION: 1. Mild concentric left ventricular hypertrophy with normal systolic function. Estimated LVEF is 55 to 60%. 2. Normal right ventricular size and systolic function. 3. Mild biatrial dilatation. 4. Mild mitral regurgitation. 5. Mildly elevated right-sided pressures. 6. Mildly dilated aortic root measuring 4.4 cm. Normal size ascending aorta. Adult Echocardiography Procedure Report Left Ventricle LVEDD [...] ml Dictated by: Nicolette Valdez M.D. on (more content not included)...[facility] Radiology, Radiologist, MD - 08/13/2025 [place] [address] Cardiology Report Signed Patient: LUCIO MADRGIAL MR#: [id number] : 1950 Acct:[id number] Age/Sex: 75 / M ADM Date: 08/13/25 Loc: CARD Attending Dr: Radha Cavazos M.D. Ordering Physician: Radha Cavazos M.D. Date of Service: 08/13/25 Procedure(s): CA echo doppler complete Accession Number(s): [id number] cc: ANTONY ZAMARRIPA ; Radha Cavazos M.D. Patient Name: LUCIO MADRIGAL MR#: [id number] : 1950 Exam Date: 08/13/2025 Ordering Doctor: DR. RADHA CAVAZOS M.D. ECHOCARDIOGRAM REPORT PROCEDURE: CA ECHO DOPPLER COMPLETE INDICATIONS: Nonrheumatic mitral valve regurgitation COMPARISON: None. DESCRIPTION: COMPLETE ECHOCARDIOGRAM Real-time transthoracic echocardiography with 2D, M-mode, spectral and color flow Doppler performed. QUALITY: Technical quality was good. LEFT VENTRICLE: Normal chamber size. Mild concentric left ventricular hypertrophy. Global left ventricular systolic function is normal. LV EF: Estimated left ventricular ejection fraction is 55-60%. DIASTOLIC: Diastolic function is indeterminate. ATRIAL SEPTUM: LEFT ATRIUM: Mild dilatation. RIGHT ATRIUM: Mild dilatation. RIGHT VENTRICLE: Normal chamber size. Normal right ventricular systolic function. TRICUSPID VALVE: Normal mobility and thickness. No stenosis with trivial regurgitation. Mild pulmonary hypertension. RVSP 35 mmHg MITRAL VALVE: Normal mobility and thickness. No evidence of mitral valve stenosis. There is no mitral annular calcification. Mild mitral regurgitation. AORTIC VALVE: Normal trileaflet appearance. Thickened aortic valve. Normal leaflet mobility. No evidence of aortic valve stenosis. Trivial aortic regurgitation. AORTIC ROOT: Mildly dilated, measuring 4.4 cm. The ascending aorta is normal in size and measures 3.2 cm. PULMONIC VALVE: Normal thickness and mobility. No stenosis. Trivial regurgitation. PERICARDIUM: No evidence of pericardial effusion. IVC: Collapses with inspiration. Normal size. PLEURA: CONCLUSION: 1. Mild concentric left ventricular hypertrophy with normal systolic function. Estimated LVEF is 55 to 60%. 2. Normal right ventricular size and systolic function. 3. Mild biatrial dilatation. 4. Mild mitral regurgitation. 5. Mildly elevated right-sided pressures. 6. Mildly dilated aortic root measuring 4.4 cm. Normal size ascending aorta. Adult Echocardiography Procedure Report Left Ventricle LVEDD [...] M.D. 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: [facility] HealthcareRadiology Study observation (narrative)[facility] HealthcareCA ECHO DOPPLER COMPLETEOrdered By: Radiologist Radiology on [id number] Work Phone: Office Visiton [id number]-up [id number] RohanLucio Logan 1950 M Date Provider Department Center 08/07/2025 [id number]-FMJWHJRADHA ROLON [facility] Family History Problem Relation Age of Onset Heart attack Father Coronary artery disease Father Coronary artery disease Brother Stroke Brother Family Status - Relation Status Age at Mother Father Brother Level of Service:89531 [place] OFFICE/OUTPATIENT ESTABLISHED MOD MDM 30 MIN Reason for Visit and Comments: Follow-up [047532] - Patient is here today for a 6 month follow up with abdominal US. Patient denies chest pain, leg swelling. Complains of occasional SOB, TELLEZ, fatigue, Atrial Fibrillation [80] Abdominal aortic aneurysm [Other] Hypertension [251641] Cardiac arrhythmia [Other] Cardiomegaly [Other] Hyperlipidemia [182] Left ventricular hypertrophy [Other] SVT [Other]NormalUnKindred HealthcareLaboratory - Hematology and Cell countson 79-02-8643YoS4l (Bld) [Mass fraction]7.3 %[facility] HealthcareNo Panel Informationon 08-26-1024VMBW Gikjzzlfws66ml 48-95-408911Qctfcmxkv AAA US performed on 05/19/2025: MD Christina Jung MA Please inform patient that the abdominal aortic aneurysm is still small. Patient has apt 06/03/2025.NormalEast [facility] Regional HospitalUS Abdominal Aorta for screeningon [id number] [address] Ultrasound Report Signed Patient: LUCIO MADRIGAL MR#: [id number] : 1950 Acct:[id number] Age/Sex: 74 / M ADM Date: 05/18/25 Loc: US Attending Dr: Radha Cavazos M.D. Ordering Physician: Radha Cavazos M.D. Date of Service: 05/18/25 Procedure(s): US abdominal aortic aneurysm Accession Number(s): [id number] cc: ANTONY ZAMARRIPA ; Radha Cavazos M.D. 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 There is probably no significant change. The bifurcation is visualized and the left iliac artery is slightly larger in caliber than the right. There is no periaortic fluid. US/US abdominal aortic aneurysm IMPRESSION: DISTAL ABDOMINAL AORTIC ANEURYSM WITH AP DIAMETER OF APPROXIMATELY 2.6 CM. Impression dictated by: Karrie Desai M.D. 05/18/2025 12:48 PM Dictation Location: [place] [address] Electronically authenticated by: [id number] Y Date: 05/18/2025 12:48 Dictated By: Karrie Desai M.D. Signed By: 05/18/25 1251 DD/ 1248 TD/TT: Plant Safety Engineer:TBHRadiology, Radiologist, MD - 05/18/2025 [place] [address] Ultrasound Report Signed Patient: LUCIO MADRIGAL MR#: [id number] : 1950 Acct:[id number] Age/Sex: 74 / M ADM Date: 05/18/25 Loc: US Attending Dr: Radha Cavazos M.D. Ordering Physician: Radha Cavazos M.D. Date of Service: 05/18/25 Procedure(s): US abdominal aortic aneurysm Accession Number(s): [id number] cc: ANTONY ZAMARRIPA ; Radha Cavazos M.D. 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 There is probably no significant change. The bifurcation is visualized and the left iliac artery is slightly larger in caliber than the right. There is no periaortic fluid. US/US abdominal aortic aneurysm IMPRESSION: DISTAL ABDOMINAL AORTIC ANEURYSM WITH AP DIAMETER OF APPROXIMATELY 2.6 CM. Impression dictated by: Karrie Desai M.D. 05/18/2025 12:48 PM Dictation Location: [place] [address] Electronically authenticated by: [id number] Y Date: 05/18/2025 12:48 Dictated By: Karrie Desai M.D. Signed By: 05/18/25 1251 DD/ 1248 TD/TT: Plant Safety Engineer: TAMARA HealthcareRadiology Study observation (narrative)TAMARA BillsUS Abdominal Aorta for screeningOrdered By: Radiologist Radiology on [id number] Work Phone: Office Visiton [phone]-up [phone] Lucio Madrigal 1950 M Date Provider Department Center 11/17/2024 65158-KRNITDRADHA CAVAZOS [facility] Family History Problem Relation Age of Onset Heart attack Father Coronary artery disease Father Coronary artery disease Brother Stroke Brother Family Status - Relation Status Age at Father Brother Level of Service:[address] [place] OFFICE/OUTPATIENT ESTABLISHED MOD [facility] 30 MIN Reason for Visit and Comments: Atrial Fibrillation [80] - Denies palpitations, lightheadedness/syncope, and bleeding on Eliquis. Hypertension [334036] Hyperlipidemia [182] - Had routine labs with lipid panel in Aug 2024. abdominal aortic aneurysm [Other] - Denies chest pain. Shortness of Breath [245075] - Intermittent. Was shoveling snow the other day and says he was able to do so without SOB and/or chest pain.NormalEast [facility] Regional HospitalALBUMIN, RANDOM URINE W/CREATININEon 51-06-8080ZANQECI, URINE0.6 mg/dLNormalSee Note:[facility] DiagnosticsComment on above:Order Comment: SPLIT 08/19/2024 FROM [id number] Comment: Reference Range: Reference Range Not establishedPerformed By: #### [id number] #### [facility] [address], [address] [place] [address] Senior Medical Technologist: Jalil Garcia MDALBUMIN/CREATININE RATIO, RANDOM URINE7 mg/g creatNormal<30Quest DiagnosticsComment on above:Order Comment: SPLIT 08/19/2024 FROM [id number] Comment: The ADA defines abnormalities in albumin excretion as follows: Albuminuria Category Result (mg/g creatinine) Normal to Mildly increased <30 Moderately increased 30-299 Severely increased > OR = 300 The ADA recommends that at least two of three specimens collected within a 3-6 month period be abnormal before considering a patient to be within a diagnostic category.Performed By: #### 6517 #### [facility] [address], [address] [place] [address] Senior Medical Technologist: Jalil Garcia MDCreatinine (U) [Mass/Vol]88 mg/xSOxiowu16-680 [facility] DiagnosticsComment on above:Order Comment: SPLIT 08/19/2024 FROM [id number] Performed By: #### [id number] #### [facility] [address], [address] [place] [address] Senior Medical Technologist: Jalil Garcia MDLaboratory - Hematology and Cell countson 03-74-7721PyQ8p (Bld) [Mass fraction]8.9 %[facility] HealthcareNo Panel Informationon 99-27-3692ELII Healthcare.Interpretation:on 73-44-0160HTC Ab IA QlCommentInvalid Interpretation [facility] CenterComment on above:Result Comment: Not infected with HCV unless early or acute infection is suspected (which may be delayed in an immunocompromised individual), or other evidence exists to indicate HCV infection. Performed at: [address] [id number] [phone] PhD Mellissa Tolliverformed By: #### [id number] #### [facility] [address] [place], [place] [address]HNKcw 67-48-3135Vzgehbyhtpd converting enzyme [Catalytic activity/Vol]17 U/LInvalid Interpretation Zurs13-89MfmzcaCleveland Clinic Mentor Hospital Comment on above:Result Comment: Performed at: [address] [id number] [id number] [facility] Mellissa Tolliverformed By: #### [id number] #### [facility] [address], [place] [address]PCLir 42-75-9910AHF.tumor marker [Mass/Vol]3.5 ng/mLInvalid Interpretation Code0.0-8.4FUniversity Hospitals Cleveland Medical CenterComment on above:Result Comment: [facility] Electrochemiluminescence Immunoassay (ECLIA) Values obtained with different assay methods or kits cannot be used interchangeably. Results cannot be interpreted as absolute evidence of the presence or absence of malignant disease. This test is not interpretable in females. Performed at: [address] [id number] [id number] [facility] hospitalayush Tolliverformed By: #### [id number] #### [facility] [address], [place] [address]ZOM w/Reflex if POSon 93-22-9664Pimtceo Ab Ql (S)Negative Invalid Interpretation CodeNegativeCleveland Clinic Mentor HospitalComment on above: Result Comment: Performed at: [address] [id number] PhD Mellissa Tolliverformed By: #### [id number] #### [facility] [address], [place] [address]Y6 Microon 36-04-9543Cacc-2-Microglobulin [Mass/Vol]1.8 ug/mL Invalid Interpretation Code0.6-2.4FUniversity Hospitals Cleveland Medical CenterComment on above: Result Comment: Siemens Immulite 2000 Immunochemiluminometric assay (ICMA) Values obtained with different assay methods or kits cannot be used interchangeably. Results cannot be interpreted as absolute evidence of the presence or absence of malignant disease. Performed at: [address] [id number] [id number] MD Nestor Holdenformed By: #### [id number] #### [facility] [address], [place] [address]PV 19-9on 91-25-7514Stsgis Ag 19-9 Qn13 unit/mLInvalid Interpretation Code0-35C[facility] Clinic Mentor HospitalComment on above:Result Comment: [facility] Electrochemiluminescence Immunoassay (ECLIA) Values obtained with different assay methods or kits cannot be used interchangeably. Results cannot be interpreted as absolute evidence of the presence or absence of malignant disease. Performed at: [address] [id number] [id number] PhD Mellissa DeleonPerformed By: #### [id number] #### [facility] [address] [place] [address]Qbnl panel: Leuk/Lym 068136tl 42-76-6860Bmyaaxwf and Gating StrategyCommentInvalid Interpretation [facility] CenterComment on above:Result Comment: 8 color analysis with CD45/SSC gating MAZNCPerformed By: #### [id number] #### [facility] [address] [place] [address]Zxhasyeveg comment [Interpretation] NarrativeCommentInvalid Interpretation [facility] CenterComment on above:Result Comment: The finding of monocytosis is non-specific and can be seen in both reactive/activated processes and neoplastic processes. If monocytosis persists (monocytes >/= 0.5 K/uL AND >/= 10% of leukocytes) without secondary etiologies identified, further evaluation of a myeloid neoplasm, such as chronic myelomonocytic leukemia, is warranted if clinically indicated. Recommend clinical correlation and follow up as appropriate.Performed By: #### [id number] #### [facility] [address], [place] [address]Zyubfjisel of LeukocytesCommentInvalid Interpretation Code [facility] HospitalComment on above:Result Comment: No monoclonal B cell population is detected. kappa:lambda ratio [...] cells 20%, T cells 56%, NK cells 24%.Performed By: #### [id number] #### [facility] [address], [place] [address]Pjzizkwq informationCommentInvalid Interpretation [facility] CenterComment on above:Result Comment: Accompanying CBC dated 09/22/2024 shows: WBC count 6.0, Hgb 16.2, Lily 4.0, Lym 1.2, Mon 0.6.Performed By: #### [id number] #### [facility] [address], [place] [address]Wvzvavouonskkoakk studyCommentInvalid Interpretation [facility] CenterComment on above:Result Comment: CD2 Normal CD3 Normal CD4 Normal CD5 Normal CD7 Normal CD8 Normal CD10 Normal CD11b Normal CD13 Normal CD14 Normal CD16 Normal CD19 Normal CD20 Normal CD33 Normal CD34 Normal CD38 Normal CD45 Normal CD56 See Text CD57 Normal CD117 Normal HLA-DR Normal KAPPA Normal LAMBDA Normal CD64 NormalPerformed By: #### [id number] #### [facility] [address], [place] [address]Wswqfzhvrp comment Sundeep (Report)CommentInvalid Interpretation [facility] CenterComment on above:Result Comment: Each antibody in this assay was utilized to assess for potential abnormalities of studied cell populations or to characterize identified abnormalities. This test was developed and its performance characteristics determined by [employer]. It has not been cleared or approved by the U.S. Food and Drug Administration. The FDA has determined that such clearance or approval is not necessary. This test is used for clinical purposes. It should not be regarded as investigational or for research. Performed at: -Y [facility] [address] [facility] [place], [place] [id number] [facility] Sherrie Terrazas Performed at: [facility] [address] [place], [place] [id number] [phone] MD Sherrie Terrazas Performed at: [facility] [address] [facility] [place], [place] [phone] [facility] Sherrie SiegelnPerformed By: #### [id number] #### [facility] [address] [place], [place] [address]Gaagycxsgpr interpretation (Unsp spec) [Interp]CommentInvalid Interpretation [facility] CenterComment on above:Result Comment: 1) No diagnostic immunophenotypic abnormality detected 2) Relative monocytosis with rare phenotypic aberrancy, representing 10% of leukocytes, see commentPerformed By: #### [id number] #### [facility] [address] [place], [place] [address]Iibefdecwwk nameCommentInvalid Interpretation [facility] CenterComment on above:Result Comment: Malathi Ernandez M.D.Performed By: #### [id number] #### [facility] [address] [place], [place] [address]Dqzibono source Nom (Unsp spec)CommentInvalid Interpretation [facility] CenterComment on above:Result Comment: Peripheral blood Performed By: #### [id number] #### [facility] [address] [place], [place] [address]Rcjnlc cells/100 cells (Unsp spec)CommentInvalid Interpretation [facility] CenterComment on above:Result Comment: 84%Performed By: #### [id number] #### [facility] [address] [place], [place] [address]Ptcnwi Lvlon 37-33-8051Xkqknm [Mass/Vol]110 microgram/dLInvalid Interpretation Wexv04-543EwbzdqCleveland Clinic Mentor HospitalComment on above:Result Comment: This test was developed and its performance characteristics determined by [facility]. It has not been cleared or approved by the Food and Drug Administration. Detection Limit = 5 Performed at: [facility] [address] [place], [place] [id number] MD Nestor Holdenformed By: #### [id number] #### [facility] [address] [place], [place] [address]Pjuh Interp 16 or moreon 97-36-5821Fuxo Interp 16 or more PerformedInvalid Interpretation [facility] CenterComment on above: Result Comment: Performed at: -Y [facility] [address] [place], [place] [id number] [facility] Sherrie Sortoerformed By: #### [id number] #### [facility] [address] [place], [place] [address]Gytk Marker, Firston 87-60-2472Tkun Marker, FirstPerformed Invalid Interpretation [facility] CenterComment on above:Result Comment: Performed at: -Y [facility] [address] [place], [place] [id number] [facility] Sherrie SiegelnPerformed By: #### [id number] #### [facility] [address] [place], [place] [address]Xdmj Markers X 15on 05-74-5510Kbnu Markers X 15PerformedInvalid Interpretation [facility] CenterComment on above:Result Comment: Performed at: -Y [facility] [address] [place], [place] [id number] [facility] Chenn AnjenPerformed By: #### [id number] #### [facility] [address] [place], [place] [address]Rsqe Markers X 3on 55-12-9138Bsow Markers X 3PerformedInvalid Interpretation [facility] CenterComment on above:Result Comment: Performed at: -Y [facility] [address] [place], [place] [id number] [facility] Sherrie Sortoerformed By: #### [id number] #### [facility] [address] [place], [place] [address]Pqwu Markers X 5on 72-47-3693Clat Markers X 5PerformedInvalid Interpretation CodeCleveland Clinic Mentor HospitalComment on above:Result Comment: Performed at: -Y [facility] [address], [place] [id number] [id number] [facility] Sherrie Sortoerformed By: #### [id number] #### [facility] [address] [place], [place] [address]Vynx K+L Lt Chains,Qn,Son 14-40-1787Ouhmnuupaktfch light chains.kappa.free (S) [Mass/Vol]18.6 mg/LInvalid Interpretation Code3.3-19.4 [facility] HospitalComment on above:Performed By: #### [id number] #### [facility] [address] [place], [place] [address]Sgoikyidkprmtw light chains.kappa.free/Immunoglobulin light chains.lambda.free (S) [Mass ratio]1.10Invalid Interpretation Code0.26-1.65 [facility] HospitalComment on above:Result Comment: Performed at: [facility] [address] [place], [place] [id number] [phone] PhD Mellissa Tolliverformed By: #### [id number] #### [facility] [address], [place] [address]Qynmjxksylaniv light chains.lambda.free [Mass/Vol]16.9 mg/L Invalid Interpretation Code5.7-26.3FUniversity Hospitals Cleveland Medical CenterComment on above: Performed By: #### [id number] #### [facility] [address], [place] [address]ELQ Antibody RFX to Quant PCRon 24-45-5988DDP IgG IA Ql Non-ReactiveInvalid Interpretation CodeNon ReactiveCleveland Clinic Mentor Hospital Comment on above:Result Comment: Performed at: [facility] [address] [place], [place] [phone] [facility] Mellissa Tolliverformed By: #### [id number] #### [facility] [address] [place], [place] [address]WPK Screen 4th Generation wRfxon 67-64-5480EQL 1+2 Ab+HIV1 p24 Ag IA QlNon-ReactiveInvalid Interpretation CodeNon ReactiveCleveland Clinic Mentor HospitalComment on above:Result Comment: HIV-1/HIV-2 antibodies and HIV-1 p24 antigen were NOT detected. There is no laboratory evidence of HIV infection. HIV Negative Performed at: [address] [phone] [facility] hospitaltyrese DeleonAbrazo Arizona Heart Hospitalformed By: #### [id number] #### [facility] [address] [place], [place] [address]Tzj A IgMon 77-34-1266EYX IgM IA QlNegativeInvalid Interpretation CodeNegativeCleveland Clinic Mentor HospitalComment on above:Result Comment: A negative anti-HAV IgM result suggests no recent or current HAV infection. Performed at: [address] [id number] [phone] [facility] Mellissa DeleonAbrazo Arizona Heart Hospitalformed By: #### [id number] #### [facility] [address] [place], [place] [address]Kax B Core Ab, IgMon 13-31-1612XVU core IgM IA QlNegative Invalid Interpretation CodeNegativeCleveland Clinic Mentor HospitalComment on above: Result Comment: Performed at: [address] [id number] [id number] [facility] Mellissa DeleonAbrazo Arizona Heart Hospitalformed By: #### [id number] #### [facility] [address] [place], [place] [address]Dpi Bs Abon 50-08-5428OUJ surface Ab Ql (S)Non-ReactiveInvalid Interpretation CodeCleveland Clinic Mentor HospitalComment on above:Result Comment: Non Reactive: Not immune to HBV infection. Equivocal: Unable to determine if anti-HBs is present at levels consistent with immunity. Reactive: Anti-HBs concentration detected at greater than 10 mIU/mL. Individual is considered to be immune to infection with HBV. Performed at: [facility] [address] [place], [place] [phone] PhD Mellissa Tolliverformed By: #### [id number] #### [facility] [address], [place] [address]Xla Bs Agon 29-86-7713ILG surface Ag IA QlNegativeInvalid Interpretation CodeNegativeCleveland Clinic Mentor HospitalComment on above:Result Comment: Performed at: [facility] [address] [place], [place] [id number] [id number] PhD Mellissa Tolliverformed By: #### [id number] #### [facility] [address], [place] [address]YVC and PE, Serumon 58-19-0417Ujjdksa [Mass/Vol]4.2 g/dLInvalid Interpretation Code2.9-4.4FUniversity Hospitals Cleveland Medical CenterComment on above:Performed By: #### [id number] #### [facility] [address], [place] [address]Mswcdii/Globulin [Mass ratio]1.3 {ratio}Invalid Interpretation Code0.7-1.7FUniversity Hospitals Cleveland Medical CenterComment on above:Performed By: #### [id number] #### [facility] [address], [place] [address]Kpohp 1 globulin Elph [Mass/Vol]0.3 g/dLInvalid Interpretation Code0.0-0.4FUniversity Hospitals Cleveland Medical CenterComment on above:Performed By: #### [id number] #### [facility] [address], [place] [address]Lxjsb 2 globulin Elph [Mass/Vol]1.0 g/dLInvalid Interpretation Code0.4-1.0C[facility] Ment[facility] HospitalComment on above:Performed By: #### [id number] #### [facility] [address], [place] [address]Vgsb globulin Elph [Mass/Vol]1.3 g/dLInvalid Interpretation Code0.7-1.3FUniversity Hospitals Cleveland Medical CenterComment on above:Performed By: #### [id number] #### [facility] [address], [place] [address]Ckgsj globulin Elph [Mass/Vol]0.8 g/dLInvalid Interpretation Code0.4-1.8[facility] Ment[facility] HospitalComment on above:Performed By: #### [id number] #### [facility] [address], [place] [address]Azphxdft (S) [Mass/Vol]3.3 g/dLInvalid Interpretation Code 2.2-3.9C[facility] Mentor HospitalComment on above:Performed By: #### [id number] #### [facility] [address], [place] [address]MiX [Mass/Vol]245 mg/dLInvalid Interpretation Wqnp05-119PvzbruCleveland Clinic Mentor HospitalComment on above:Performed By: #### [id number] #### [facility] [address] [place] [address]MtW [Mass/Vol]912 mg/dLInvalid Interpretation Nzpf829-5008 [facility] HospitalComment on above:Performed By: #### [id number] #### [facility] [address] [place] [address]EuW [Mass/Vol]67 mg/dLInvalid Interpretation Ienu86-016CissywCleveland Clinic Mentor HospitalComment on above:Performed By: #### [id number] #### [facility] [address], [place] [address]Baehqtnzbzzwsc IEP [Interp]CommentInvalid Interpretation Code [facility] HospitalComment on above:Result Comment: No monoclonality detected.Performed By: #### [id number] #### [facility] [address], [place] [address]Bnntpgjqrx comment Sundeep (Report)CommentInvalid Interpretation CodeCleveland Clinic Mentor HospitalComment on above:Result Comment: Protein electrophoresis scan will follow via computer, mail, or engineering group manager delivery. Performed at: [address] [phone] PhD Mellissa Tolliverformed By: #### [id number] #### [facility] [address], [place] [address]Mlduiwd [Mass/Vol]7.5 g/dLInvalid Interpretation Code6.0-8.5 [facility] HospitalComment on above:Performed By: #### [id number] #### [facility] [address], [place] [address]Edllfmw.monoclonal Elph [Mass/Vol]Not ObservedInvalid Interpretation CodeNot ObservedCleveland Clinic Mentor HospitalComment on above: Performed By: #### [id number] #### [facility] [address] [place] [address]ZkY, Quanton 70-36-9830ZzA Qn118 International_Unit/mLInvalid Interpretation Code6-495C[facility] Clinic Mentor HospitalComment on above:Order Comment: Added by Discern ExpertResult Comment: Performed at: [address] [id number] [id number] MD Nestor Holdenformed By: #### [id number] #### [facility] [address], [place] [address]Nmak, Adulton 63-72-9742Ncmb (BldV) [Mass/Vol]1.8 microgram/dL Invalid Interpretation Code0.0-3.4FUniversity Hospitals Cleveland Medical CenterComment on above: Result Comment: Testing performed by Inductively coupled plasma/Mass Spectrometry. Analysis by inductively coupled plasma/mass spectrometry (ICP/MS) This test was developed and its performance characteristics determined by [facility]. It has not been cleared or approved by the Food and Drug Administration. Environmental Exposure: WHO Recommendation <5.0 Occupational Exposure: OSHA Lead Std 40.0 CADY 30.0 Detection Limit = 1.0 Performed at: [address] [id number] [phone] PhD Mellissa Tolliverformed By: #### [id number] #### [facility] [address], [place] [address]DR Quanton 11-80-4073Vbxfmmzmuj factor Qn[IU]/mLInvalid Interpretation Code<14.0C[facility] Mentor HospitalComment on above:Result Comment: Performed at: [address] [id number] [phone] PhD Mellissa Tolliverformed By: #### [id number] #### [facility] [address] [place] [address]Pny Miscellaneous-LCon 32-17-6642Mhh MiscellaneousCOMMENT Invalid Interpretation CodeFishSaint Luke InstituteComment on above:Order Comment: 24 hour urine Total Volume of 2,900ml information also documented on the cup 09/25/2024 11:37:38 EST ras701Pyrctj Comment: Test Ordered: [id number] DONA+Protein Electro, 24-Hr Ur Protein,Total,Urine 5.0 mg/dL CB Reference Range: Not Estab. Prot,24hr calculated 145 mg/24 hr CB Reference Range: 30-150 Albumin, U 21.6 % CB Xxddu-7-Huuverku, U 4.6 % CB Kntei-4-Meeykddi, U 9.0 % CB Beta Globulin, U 21.5 % CB Gamma Globulin, U 43.3 % CB M-Nader, % Note: % CB Not Observed Reference Range: Not Observed Immunofixation Result, Urine Comment CB No monoclonality detected. Note: Comment CB Protein electrophoresis scan will follow via computer, mail, or engineering group manager delivery. Performed at: [address] [phone] [id number] PhD Mellissa Tolliverformed By: #### [id number] #### [facility] [address] [place] [address] [id number] Comment: 25 hour urine with a total volulme of 2,900ml. Information is also documented on thecup. 09/25/2024 11:38:20 EST [id number] Comment: Test Ordered: [id number] Protein Electro, 24-Hour Urine Protein,Total,Urine 5.8 mg/dL CB Reference Range: Not Estab. Prot,24hr calculated 168 [H ] mg/24 hr CB Reference Range: 30-150 Albumin, U 36.4 % CB Hvrpr-6-Winypkdb, U 2.7 % CB Tjyda-6-Bolylcfj, U 23.2 % CB Beta Globulin, U 22.7 % CB Gamma Globulin, U 15.0 % CB M-Nader, % Note: % CB Not Observed Reference Range: Not Observed Please note: Comment CB Protein electrophoresis scan will follow via computer, mail, or engineering group manager delivery. Performed at: [facility] [address] [id number] [phone] PhD Mellissa DeleonStanton County Health Care Facility Miscellaneous-LCon 67-91-4733Cpxm [id number] Invalid Interpretation [facility] CenterComment on above:Order Comment: 24 hour urine Total Volume of 2,900ml information also documented on the cup 09/25/2024 11:37:38 EST [id number] By: #### [id number] #### [facility] [address] [place] [address] 23009Zugu [id number] Interpretation [facility] CenterComment on above:Order Comment: 25 hour urine with a total volulme of 2,900ml. Information is also documented on thecup. 09/25/2024 11:38:20 EST [id number] By: #### [id number] #### [facility] [address] [place] [address] 47290Uzq Miscelltuscarawas hospital-LCOrdered By: Ellie Bell on 40-18-1736Rgyj Name24 Urine - IFEInvalid Interpretation [facility] SendOutsSSComment on above: Order Comment: 24 hour urine Total Volume of 2,900ml information also documented on the cup 09/25/2024 11:37:38 EST [id number] By: #### [id number] #### [facility] [address] [place] [address] 26702Mczt Name24 urine UPEPInvalid Interpretation [facility] SendOutsSSComment on above:Order Comment: 25 hour urine with a total volulme of 2,900ml. Information is also documented on thecup. 09/25/2024 11:38:20 EST [id number] By: #### [id number] #### [facility] [address] [place] [address] 90678Ucvkbmvoe Laboratory TestingOrdered By: Ellie Bell on 57-86-6153Wbaq [id number] 1Invalid Interpretation CodePOST [facility] [place] SendOutsSSTest Code [id number] 1Invalid Interpretation CodePOST [facility]UTE [facility] [place] SendOutsSSCBC w/ Auto Diffon 09-22-2024 Basophils/100 WBC (Bld)1.0 %Normal0.0-2.0[facility] HospitalComment on above:Performed By: #### [id number] #### [facility] [address] [place] [address] 35522Ddqgbyeni/Leukocytes Auto (Bld) [Pure # fraction]0.1 E9/LNormal 0.0-0.2FUniversity Hospitals Cleveland Medical CenterComment on above:Performed By: #### [id number] #### [facility] [address] [place] [address] 97652Oxidjubdftk (Bld) [#/Vol]0.1 E9/LNormal0.0-0.5FUniversity Hospitals Cleveland Medical CenterComment on above:Performed By: #### [id number] #### [facility] [address] [place] [address] 78951Avjtkbuncpv/100 WBC (Bld)2.4 %Normal0.0-8.0[facility] HospitalComment on above:Performed By: #### [id number] #### [facility] [address] [place] [address] 83087Qdfmhtsheof distribution width (RBC) [Ratio]13.7 %Normal 10.9-14.2FUniversity Hospitals Cleveland Medical CenterComment on above:Performed By: #### [id number] #### [facility] [address] [place] [address] 81006Azewrkevdh (Bld) [Volume fraction]46.8 %Pipynp47.7-49.0[facility] HospitalComment on above:Performed By: #### [id number] #### [facility] [address] [place] [address] 56072Mbugfcjmnz (Bld) [Mass/Vol]16.2 g/kIBbsldv00.5-17.5FUniversity Hospitals Cleveland Medical CenterComment on above:Performed By: #### [id number] #### [facility] [address] [place] [address] 43795Opvdlwmibgh (Bld) [#/Vol]1.2 E9/LNormal1.0-4.0[facility] HospitalComment on above:Performed By: #### [id number] #### [facility] [address] [place] [address] 44040Ctndulbwdli/100 WBC (Bld)20.0 %Qvdotm30.0-50.0[facility] HospitalComment on above:Performed By: #### [id number] #### [facility] [address] [place] [address] 51103KLT (RBC) [Entitic mass]32.4 otWbcuxx22.0-34.0[facility] HospitalComment on above:Performed By: #### [id number] #### [facility] [address] [place] [address] 94862CWTW (RBC) [Mass/Vol]34.6 g/eIZocprf04.4-36.0[facility] HospitalComment on above:Performed By: #### [id number] #### [facility] [address] [place] [address] 08843AGG (RBC) [Entitic vol]93.5 uREzlflw26.0-100.0[facility] HospitalComment on above:Performed By: #### [id number] #### [facility] [address] [place] [address] 64174Dhfnudvoa (Bld) [#/Vol]0.6 E9/LNormal0.2-1.0[facility] HospitalComment on above:Performed By: #### [id number] #### [facility] [address] [place] [address] 77177Nmaclngmqhs (Bld) [#/Vol]4.0 E9/LNormal2.0-7.5FUniversity Hospitals Cleveland Medical CenterComment on above:Performed By: #### [id number] #### [facility] [address], [place] [address]Yljtffdnkew/100 WBC (Bld)66.3 %Xwlfna75.0-75.0[facility] HospitalComment on above:Performed By: #### [id number] #### [facility] [address], [place] [address]Eutsshrl911.0 E9/BQgqyiq571.0-500.0[facility] Comment on above:Performed By: #### [id number] #### [facility] [address] [place] [address] 40104Dtovobry mean volume (Bld) [Entitic vol]8.5 fLNormal6.4-10.8 [facility] HospitalComment on above:Performed By: #### [id number] #### [facility] [address] [place] [address] 71851HPU (Bld) [#/Vol]5.0 E12/LNormal4.3-5.9[facility] HospitalComment on above:Performed By: #### [id number] #### [facility] [address] [place] [address] 57182GZB corrected for nucl RBC Auto (Bld) [#/Vol]6.0 E9/LNormal 4.0-11.0[facility] HospitalComment on above:Performed By: #### [id number] #### [facility] [address] [place] [address] 53265ZZGxl 17-67-3172VEA4.1 ng/mLInvalid Interpretation CodeCleveland Clinic Mentor HospitalComment on above:Result Comment: 'NON-SMOKER < 2.5' 'SMOKER < 5.0' The concentration of CEA in a given specimen determined by different manufacturers can vary due to differences in assay methods and reagent specificity. Values obtained with different assay methods cannot be used interchangeably. The methodology used to perform this test was chemiluminescence usingTrelligence's Access CEA reagent.Performed By: #### [id number] #### [facility] [address] [place] [address] 08312KDEEDIGCMYbfevhs By: SYSTEM SYSTEM on 01-66-4733Elhebfp [Mass/Vol]4.8 g/dLNormal3.3 - 5.0 gm/dLRemisol ChemAlbumin/Globulin [Mass ratio] 1.7 {ratio}Normal1.1 - 2.2Remisol ChemALP [Catalytic activity/Vol]106 [iU]/dHigh 21 - 98 Int._Unit/LRemisol ChemALT No additional P-5'-P [Catalytic activity/Vol] 24 [iU]/dNormal6 - 46 Int._Unit/LRemisol ChemAnion gap [Moles/Vol]13 mmol/L Normal6 - 16 mEq/LRemisol ChemAST [Catalytic activity/Vol]14 [iU]/dNormal5 - 43 Int._Unit/LRemisol ChemBilirubin [Mass/Vol]0.7 mg/dLNormal0.0 - 1.1 mg/dLRemisol ChemCalcium [Mass/Vol]10.0 mg/dLNormal8.9 - 11.1 mg/dLRemisol ChemCEA5.1 ng/mL Invalid Interpretation CodeRemisol ChemComment on above:Result Comment: 'NON- SMOKER < 2.5' 'SMOKER < 5.0'Interpretive Data: The concentration of CEA in a given specimen determined by different manufacturers can vary due to differences in assay methods and reagent specificity. Values obtained with different assay methods cannot be used interchangeably. The methodology used to perform this test was chemiluminescence using Trell[employer]'s Access CEA reagent.Chloride [Moles/Vol]101 mmol/OGazbeh644 - 111 mmol/LRemisol ChemCO2 [Moles/Vol]27 mmol/L Ghvrey58 - 31 mmol/LRemisol ChemCreatinine [Mass/Vol]1.4 mg/dLHigh0.5 - 1.3 mg/dLRemisol ChemCRP [Mass/Vol]mg/dLNormal<=1.9mg/dLRemisol PzyhjDYQ91 mL/min/1.73 m2Low>=59mL/min/1.73 g6Jgbaujh ChemGlobulin (S) [Mass/Vol]2.8 g/dL Normal1.4 - 4.0 gm/dLRemisol ChemGlucose [Mass/Vol]200 mg/vSFpvp31 - 199 mg/dL Remisol FfvfDFO381 [iU]/xQwegal31 - 218 Int._Unit/LRemisol ChemMagnesium [Mass/Vol]2.2 mg/dLNormal1.3 - 2.4 mg/dLRemisol ChemPotassium [Moles/Vol]4.3 mmol/LNormal3.5 - 5.3 mmol/LRemisol ChemProstate specific Ag [Mass/Vol]0.8 ng/mL Normal0.1 - 3.5 ng/mLRemisol ChemComment on above:Interpretive Data: The concentration of PSA determined by different manufacturers can vary due to di fferences in assay methods and reagent specificity. Values obtained from different assay methods cannot be used interchangeably. The methodology used for this result was chemiluminescence using Trellig[employer]'s Access Hybritech PSA reagent.Protein [Mass/Vol]7.6 g/dLNormal6.0 - 7.8 gm/dLRemisol ChemSodium [Moles/Vol]137 mmol/IJotnub818 - 145 mmol/LRemisol ChemUrate [Mass/Vol]5.1 mg/dL Normal2.2 - 7.4 mg/dLRemisol ChemUrea nitrogen [Mass/Vol]20 mg/dLNormal5 - 21 mg/dLRemisol ChemUrea nitrogen/Creatinine [Mass ratio]14 mg/gkYelphh55 - 20 Remisol ChemCMPon 69-86-9461Mvnmdxl [Mass/Vol]4.8 g/dLNormal3.3-5.0[facility] HospitalComment on above:Performed By: #### [id number] #### [facility] [address] [place], [place] [address]Gmeswpw/Globulin (S) [Mass conc ratio]1.4Muwlnb9.1-2.2FUniversity Hospitals Cleveland Medical CenterComment on above:Performed By: #### [id number] #### [facility] [address], [place] [address]SGE [Catalytic activity/Vol]106 Int._Unit/VVbmx87-54QmmdqkCleveland Clinic Mentor HospitalComment on above:Performed By: #### [id number] #### [facility] [address], [place] [address]VZR No additional P-5'-P [Catalytic activity/Vol]24 Int._Unit/L Normal6-46[facility] HospitalComment on above:Performed By: #### [id number] #### [facility] [address], [place] [address]Owefj gap [Moles/Vol]13 mmol/LNormal6-16[facility] HospitalComment on above:Performed By: #### [id number] #### [facility] [address], [place] [address]LJG [Catalytic activity/Vol]14 Int._Unit/LNormal5-43[facility] HospitalComment on above:Performed By: #### [id number] #### [facility] [address], [place] [address]Azpmueyhh [Mass/Vol]0.7 mg/dLNormal0.0-1.1FUniversity Hospitals Cleveland Medical CenterComment on above:Performed By: #### [id number] #### [facility] [address] [place] [address] 33713Tnllslf [Mass/Vol]10.0 mg/dLNormal8.9-11.1FUniversity Hospitals Cleveland Medical CenterComment on above:Performed By: #### [id number] #### [facility] [address], [place] [address]Fjdsqwgj [Moles/Vol]101 mmol/QAemhez408-230WmxjvwCleveland Clinic Mentor HospitalComment on above:Performed By: #### [id number] #### [facility] [address], [place] [address]JO6 [Moles/Vol]27 mmol/SDzzpru33-28WexihfCleveland Clinic Mentor Hospital Comment on above:Performed By: #### [id number] #### [facility] [address], [place] [address]Dqfbtmpcdc [Mass/Vol]1.4 mg/dLHigh0.5-1.3FUniversity Hospitals Cleveland Medical CenterComment on above:Performed By: #### [id number] #### [facility] [address], [place] [address]Trhznahq (S) [Mass/Vol]2.8 g/dLNormal1.4-4.0[facility] HospitalComment on above:Performed By: #### [id number] #### [facility] [address], [place] [address]Ehenzmq [Mass/Vol]200 mg/xWLixf64-137HzxfgkCleveland Clinic Mentor HospitalComment on above:Performed By: #### [id number] #### [facility] [address], [place] [address]Iewigxgav [Moles/Vol]4.3 mmol/LNormal3.5-5.3FUniversity Hospitals Cleveland Medical CenterComment on above:Performed By: #### [id number] #### [facility] [address], [place] [address]Hvymwtw [Mass/Vol]7.6 g/dLNormal6.0-7.8[facility] HospitalComment on above:Performed By: #### [id number] #### [facility] [address] [place] [address] 88448Ojlzoq [Moles/Vol]137 mmol/UXmebpl044-644HhpjtmCleveland Clinic Mentor HospitalComment on above:Performed By: #### [id number] #### [facility] [address], [place] [address]Vaka nitrogen [Mass/Vol]20 mg/dLNormal5-21[facility] HospitalComment on above:Performed By: #### [id number] #### [facility] [address], [place] [address]Ewlp nitrogen/Creatinine [Mass ratio]14 No SfwzxUptqrz02-41 [facility] HospitalComment on above:Performed By: #### [id number] #### [facility] [address], [place] [address]OBEnq 86-53-3124ZTQ [Mass/Vol]mg/LNormal<=1.9[facility]ly [facility] Psychiatric CenterComment on above:Performed By: #### [id number] #### [facility] [address], [place] [address]KFEVZZISVEGgrboyz By: SYSTEM SYSTEM on 16-39-4235Qtypwycib/100 WBC (Bld)1.0 %Normal0.0 - 2.0 %Remisol HemeBasophils/Leukocytes Auto (Bld) [Pure # fraction]0.1 E9/LNormal0.0 - 0.2 E9/LRemisol HemeEosinophils (Bld) [#/Vol]0.1 E9/LNormal0.0 - 0.5 E9/LRemisol HemeEosinophils/100 WBC (Bld)2.4 %Normal0.0 - 8.0 %Remisol HemeErythrocyte distribution width (RBC) [Ratio]13.7 %Jomwbv95.9 - 14.2 %Remisol HemeHematocrit (Bld) [Volume fraction]46.8 %Ovxvpq18.7 - 49.0 % Remisol HemeHemoglobin (Bld) [Mass/Vol]16.2 g/cPHxunwj41.5 - 17.5 gm/dLRemisol HemeLymphocytes (Bld) [#/Vol]1.2 E9/LNormal1.0 - 4.0 E9/LRemisol Heme Lymphocytes/100 WBC (Bld)20.0 %Fknmkw11.0 - 50.0 %Remisol HemeMCH (RBC) [Entitic mass]32.4 kvNncdgk77.0 - 34.0 pgRemisol HemeMCHC (RBC) [Mass/Vol]34.6 g/dL Frerbr64.4 - 36.0 gm/dLRemisol HemeMCV (RBC) [Entitic vol]93.5 fWSdwmeu19.0 - 100.0 fLRemisol HemeMonocytes (Bld) [#/Vol]0.6 E9/LNormal0.2 - 1.0 E9/LRemisol HemeMonocytes/100 WBC (Bld)10.3 %Normal4.0 - 14.0 %Remisol HemeNeutrophils (Bld) [#/Vol]4.0 E9/LNormal2.0 - 7.5 E9/LRemisol HemeNeutrophils/100 WBC (Bld)66.3 % Ehswfc25.0 - 75.0 %Remisol BoqlSmkojjig786.0 E9/FSxztbh798.0 - 500.0 E9/LRemisol HemePlatelet mean volume (Bld) [Entitic vol]8.5 fLNormal6.4 - 10.8 fLRemisol HemeRBC (Bld) [#/Vol]5.0 E12/LNormal4.3 - 5.9 E12/LRemisol HemeWBC corrected for nucl RBC Auto (Bld) [#/Vol]6.0 E9/LNormal4.0 - 11.0 E9/LRemisol HemeLDHon 32-81-0879IOU235 Int._Unit/VEdehka02-154SnvccjCleveland Clinic Mentor HospitalComment on above:Performed By: #### [id number] #### [facility] [address], [place] [address]Hjnt, Adulton 86-48-6070Mjzln Lead PurposeI InitialNormalCleveland Clinic Mentor HospitalComment on above:Performed By: #### [id number] #### [facility] [address], [place] [address]Yh Patient ?2 NoNFirelands Regional Medical Center Comment on above:Performed By: #### [id number] #### [facility] [address], [place] [address]Odggknoxorh 42-78-6355Fbachjmxv [Mass/Vol]2.2 mg/dLNormal 1.3-2.4FUniversity Hospitals Cleveland Medical CenterComment on above:Performed By: #### [id number] #### [facility] [address], [place] [address]UQZ Totalon 67-80-4093Xehjfjwd specific Ag [Mass/Vol]0.8 ng/mL Normal0.1-3.5FUniversity Hospitals Cleveland Medical CenterComment on above:Result Comment: The concentration of PSA determined by different manufacturers can vary due to diffe rences in assay methods and reagent specificity. Values obtained from different assay methods cannot be used interchangeably. The methodology used for this result was chemiluminescence using Trell[employer]'s Access Hybritech PSA reagent.Performed By: #### [id number] #### [facility] [address], [place] [address]Ehdc Acidon 19-33-4624Klptp [Mass/Vol]5.1 mg/dLNormal2.2-7.4 [facility] HospitalComment on above:Performed By: #### [id number] #### [facility] [address], [place] [address]ySMZub 52-05-2492fJGI89 mL/min/1.73 m2Low>=59[facility] HospitalComment on above:Performed By: #### [id number] #### [facility] [address], [place] [address]Mxmlxaxkpb - Hematology and Cell countson 67-09-6538DoB0f (Bld) [Mass fraction]8.9 %[facility] HealthcareNo Panel Informationon 78-39-5362XRDJ HealthcareALL BASIC METABOLIC PANELon 98-99-9547Bypah gap [Moles/Vol]9.8 mmol/L [facility] HealthcareCalcium [Mass/Vol]9.6 mg/dL8.5 - 10.1 mg/dLNOME Healthcare Chloride [Moles/Vol]99 mmol/L98 - 107 mmol/LNOMS HealthcareCO2 [Moles/Vol]27.9 mmol/L21.0 - 32.0 mmol/LNOMS HealthcareCreatinine [Mass/Vol]1.39 mg/dLHigh0.70 - 1.30 mg/dLNOME HealthcareGFR/1.73 sq M.predicted CKD-EPI (S/P/Bld) [Vol rate/Area]>6060 - PINFNOMS HealthcareGlucose [Mass/Vol]349 mg/mNEfbm57 - 106 mg/dLNOME HealthcareInterpretation and review of laboratory resultsAbnormalNOME HealthcarePotassium [Moles/Vol]4.7 mmol/L3.5 - 5.1 mmol/LNOMS HealthcareSodium [Moles/Vol]132 mmol/NUil024 - 145 mmol/LNOMS HealthcareTBH EGFR-NON AF [place]AN 00Gae52 - PINFNOMS HealthcareUrea nitrogen [Mass/Vol]23.0 mg/dLHigh7.0 - 18.0 mg/dLNOMS HealthcareUrea nitrogen/Creatinine [Mass ratio]16.5 mg/mgNOMS HealthcareCLINISYNCNOMS HealthcareALL BASIC METABOLIC PANELon 90-43-6108Ognmk gap [Moles/Vol]17.0 mmol/LNOMS HealthcareCalcium [Mass/Vol]9.3 mg/dL8.5 - 10.1 mg/dLNOMS HealthcareChloride [Moles/Vol]102 mmol/L98 - 107 mmol/LNOMS Healthcare CO2 [Moles/Vol]23.5 mmol/L21.0 - 32.0 mmol/LNOMS HealthcareCreatinine [Mass/Vol] 1.54 mg/dLHigh0.70 - 1.30 mg/dLNOMS HealthcareGFR/1.73 sq M.predicted CKD-EPI (S/P/Bld) [Vol rate/Area]34Pdu57 - PINFNOMS HealthcareGlucose [Mass/Vol]337 mg/vBUkkx00 - 106 mg/dLNOME HealthcareInterpretation and review of laboratory resultsAbnormalNOME HealthcarePotassium [Moles/Vol]4.5 mmol/L3.5 - 5.1 mmol/L NOMS HealthcareSodium [Moles/Vol]138 mmol/L136 - 145 mmol/LNOMS HealthcareTBH EGFR-NON AF SLKCDSFW87Vgm06 - PINFNOMS HealthcareUrea nitrogen [Mass/Vol]25.0 mg/dLHigh7.0 - 18.0 mg/dLNOME HealthcareUrea nitrogen/Creatinine [Mass ratio] 16.2 mg/mgNOMS HealthcareCLINISYNCNSUMMIT MEDICAL [facility]ENTER [facility] HealthcareRT PULMONARY FUNCTION TESTon 78-03-1474Axg[address] [address] Respiratory Report Signed Patient: LUCIO MADRIGAL MR#: [id number] : 1950 Acct:[id number] Age/Sex: 73 / M ADM Date: 05/27/24 Loc: CARD Attending Dr: Gigi Baer D.O. Ordering Physician: Gigi Baer D.O. Date of Service: 05/27/24 Procedure(s): RT pulmonary function test Accession Number(s): [id number] cc: [facility] Test Date: 2024-05-27 Pat Name: LUCIO MADRIGAL Department: Room: - Gender: Male Associate Property Manager: Nara Walker RRT : 1950 Requested By: Gigi Baer Order Number: [id number] Reading MD: Gigi Baer Interpretive Statements Pulmonary function testing was completed according to ATS criteria. Findings were considered accurate and reproducible. Both pre- and post-bronchodilator values utilized for spirometry. Spirometry (based on pre-bronchodilator values): -FEV1/FVC: Low normal @ 72% -FEV1: Normal @ 81% -FVC: Normal @ 82% -LCQ85-92%: Reduced @ 76% -There is no significant bronchodilator response. Lung volumes by plethysmography (based on pre-bronchodilator values): -RV: Increased @ 122% -TLC: Normal @ 98% Diffusion capacity: -DLCO: Severe reduction @ 43% when corrected for Hb 15.1g/dL Flow-volume loop: -Moderate obstructive pattern Impressions: -Spirometry trends towards a mild-moderate obstruction pattern. There is no bronchodilator response. An elevated RV suggests air trapping. There is a severely reduced diffusion capacity.nOverall study is compatible with COPD/emphysema. Patient is at risk of ambulatory desaturations with a decreaed DLCO. Clinical correlation required. Electronically Signed On 05-27-2024 17:06:32 EDT by Gigi Baer Dictated By: Gigi Baer D.O. Signed By: 05/27/24 1706 DD/ 0816 TD/TT: Plant Safety Engineer:TBHRadiology, Radiologist, - 05/27/2024 [place] [address] Respiratory Report Signed Patient: LUCIO MADRIGAL MR#: [id number] : 1950 Acct:[id number] Age/Sex: 73 / M ADM Date: 05/27/24 Loc: CARD Attending Dr: Gigi Baer D.O. Ordering Physician: Gigi Baer D.O. Date of Service: 05/27/24 Procedure(s): RT pulmonary function test Accession Number(s): [id number] cc: [facility] Test Date: 2024-05-27 Pat Name: LUCIO MADRIGAL Department: Room: - Gender: Male Associate Property Manager: Nara WalkerACCOUNT COORDINATOR : 1950 Requested By: Gigi Baer Order Number: [id number] Reading MD: Gigi Baer Interpretive Statements Pulmonary function testing was completed according to ATS criteria. Findings were considered accurate and reproducible. Both pre- and post-bronchodilator values utilized for spirometry. Spirometry (based on pre-bronchodilator values): -FEV1/FVC: Low normal @ 72% -FEV1: Normal @ 81% -FVC: Normal @ 82% -NMN71-36%: Reduced @ 76% -There is no significant bronchodilator response. Lung volumes by plethysmography (based on pre-bronchodilator values): -RV: Increased @ 122% -TLC: Normal @ 98% Diffusion capacity: -DLCO: Severe reduction @ 43% when corrected for Hb 15.1g/dL Flow-volume loop: -Moderate obstructive pattern Impressions: -Spirometry trends towards a mild-moderate obstruction pattern. There is no bronchodilator response. An elevated RV suggests air trapping. There is a severely reduced diffusion capacity.nOverall study is compatible with COPD/emphysema. Patient is at risk of ambulatory desaturations with a decreaed DLCO. Clinical correlation required. Electronically Signed On 05-27-2024 17:06:32 EDT by Gigi Baer Dictated By: Gigi Baer D.O. Signed By: 05/27/24 1706 DD/ 0816 TD/TT: Plant Safety Engineer: TAMARA HealthcareRadiology Study observation (narrative)NOMS HealthcareRT PULMONARY FUNCTION TESTOrdered By: Radiologist Radiology on 05-90-6133Y[facility]K Healthcare Work Phone: ca ECHO DOPPLER COMPLETEon [phone] [place] [phone] Cardiology Report Signed Patient: LUCIO MADRIGAL MR#: [id number] : 1950 Acct:[id number] Age/Sex: 73 / M ADM Date: 12/20/23 Loc: CARD Attending Dr: Pantera Tomlin M.D. Ordering Physician: Pantera Tomlin M.D. Date of Service: 12/20/23 Procedure(s): CA echo doppler complete Accession Number(s): [id number] cc: KYLEIGH ZAMARRIPAEL ; Pantera Tomlin M.D. Patient Name: LUCIO MADRIGAL MR#: [id number] : 1950 Exam Date: 12/20/2023 Ordering Doctor: PANTERA TOMLIN ECHOCARDIOGRAM REPORT PROCEDURE: CA ECHO DOPPLER COMPLETE INDICATIONS: Paroxysmal atrial fibrillation COMPARISON: None. DESCRIPTION: COMPLETE ECHOCARDIOGRAM Real-time transthoracic echocardiography with 2D, M-mode, spectral and color flow Doppler performed. QUALITY: Technical quality was good. BSA 2.2 LEFT VENTRICLE: Normal chamber size. Normal left ventricular wall thickness. Global left ventricular systolic function is normal. LV EF: Estimated left ventricular ejection fraction is 60%. DIASTOLIC: Not adequately assessed due to heart rhythm. ATRIAL SEPTUM: Probable left to right shunt by color doppler evaluation. Further evaluation by an agitated saline study is suggested if clinically warranted. LEFT ATRIUM: Moderate dilatation. RIGHT ATRIUM: Moderate dilatation. RIGHT VENTRICLE: Moderate dilatation. Normal right ventricular systolic function. TRICUSPID VALVE: Normal mobility and thickness. No stenosis with mild regurgitation. Mild pulmonary hypertension. RVSP 44 mmHg MITRAL VALVE: Normal mobility and thickness. No evidence of mitral valve stenosis. There is no mitral annular calcification. Mild to moderate mitral regurgitation. AORTIC VALVE: Normal trileaflet appearance. No visible sclerosis. Normal leaflet mobility. No evidence of aortic valve stenosis. Trivial aortic regurgitation. AORTIC ROOT: Moderately dilated. Measuring 4.3 cm at the sinus level. Ascending aorta is normal in size measuring 3.1 cm. PULMONIC VALVE: Normal thickness and mobility. No stenosis. Trivial regurgitation. PERICARDIUM: Trivial pericardial effusion. IVC: Collapses with inspirations. Normal size. PLEURA: CONCLUSION: 1. Global left ventricular systolic function is normal. Estimated left ventricular ejection fraction is 60%. 2. Moderately dilated right ventricle with normal systolic function. 3. Moderate bi-atrial dilatation. 4. Mild to moderate mitral regurgitation. 5. Mild tricuspid regurgitation. 6. Mildly elevated right sided pressures. RVSP is 44 mmHg. 7. Moderately dilated aortic root. 8. Cannot rule out the presence of an atrial septal defect. A transesophageal echocardiogram is recommended for further evaluation. Adult Echocardiography Procedure Report Left Ventricle LVEDD (3.7 - 5.6 cm): 5.67 cm LVESD (2.2 - 4.0 cm): 3.43 cm LVIVS thickness (0.6 - 1.2 cm): 0.85 cm LVPW thickness (0.5 - 1.0 cm): 1.01 cm e': 0.09 m/s E - e': 11.75 LVOT Max Gradient: 2.09 mm[Hg] LVOT Area (cm2): 0.72 m/s Peak Velocity (LVOT): 0.72 m/s Mean Velocity (LVOT): 0.50 m/s LVOT Diameter 2.29 cm Left Ventricular Ejection Fraction: 60 % Left Atrium LA Volume Index (2D A2C): 49.90 ml/m2 Left Atrium Systolic Dimension: 4.66 cm Mitral Valve Mitral Valve E-Wave Peak Velocity: 1.02 m/s Right Ventricle RV Internal Diastolic Dimension: 5.06 cm Aorta AO Root Diam: 4.26 cm Ascending Ao Diam: 3.20 cm Aortic Valve AoV Area (Peak Elan): 2.43 cm2, 2.39 cm2 AoV Area (VTI): 2.42 cm2, 2.34 cm2 Peak Velocity(Antegrade Flow): 1.24 m/s, 1.20 m/s Peak Gradient(Antegrade Flow): 6.16 mm[Hg], 5.78 mm[Hg] Mean Velocity(Antegrade Flow): 0.92 m/s, 0.89 m/s Mean Gradient(Antegrade Flow): 3.76 mm[Hg], 3.50 mm[Hg] Velocity Time Integral: 28.28 cm, 26.33 cm Tricuspid Valve Peak Velocity (Regurgitant Flow): 3.03 m/s, 2.67 m/s, 3.19 m/s Pulmonic Va (more content not included)...TBHRadiology, Radiologist, - 12/22/[address] [address] Cardiology Report Signed Patient: LUCIO MADRIGAL MR#: [id number] : 1950 Acct:[id number] Age/Sex: 73 / M ADM Date: 12/20/23 Loc: CARD Attending Dr: Pantera Tomlin M.D. Ordering Physician: Pantera Tomlin M.D. Date of Service: 12/20/23 Procedure(s): CA echo doppler complete Accession Number(s): [id number] cc: ANTONY ZAMARRIPA ; Pantera Tomlin M.D. Patient Name: LUCIO MADRIGAL MR#: [id number] : 1950 Exam Date: 12/20/2023 Ordering Doctor: PANTERA TOMLIN ECHOCARDIOGRAM REPORT PROCEDURE: CA ECHO DOPPLER COMPLETE INDICATIONS: Paroxysmal atrial fibrillation COMPARISON: None. DESCRIPTION: COMPLETE ECHOCARDIOGRAM Real-time transthoracic echocardiography with 2D, M-mode, spectral and color flow Doppler performed. QUALITY: Technical quality was good. BSA 2.2 LEFT VENTRICLE: Normal chamber size. Normal left ventricular wall thickness. Global left ventricular systolic function is normal. LV EF: Estimated left ventricular ejection fraction is 60%. DIASTOLIC: Not adequately assessed due to heart rhythm. ATRIAL SEPTUM: Probable left to right shunt by color doppler evaluation. Further evaluation by an agitated saline study is suggested if clinically warranted. LEFT ATRIUM: Moderate dilatation. RIGHT ATRIUM: Moderate dilatation. RIGHT VENTRICLE: Moderate dilatation. Normal right ventricular systolic function. TRICUSPID VALVE: Normal mobility and thickness. No stenosis with mild regurgitation. Mild pulmonary hypertension. RVSP 44 mmHg MITRAL VALVE: Normal mobility and thickness. No evidence of mitral valve stenosis. There is no mitral annular calcification. Mild to moderate mitral regurgitation. AORTIC VALVE: Normal trileaflet appearance. No visible sclerosis. Normal leaflet mobility. No evidence of aortic valve stenosis. Trivial aortic regurgitation. AORTIC ROOT: Moderately dilated. Measuring 4.3 cm at the sinus level. Ascending aorta is normal in size measuring 3.1 cm. PULMONIC VALVE: Normal thickness and mobility. No stenosis. Trivial regurgitation. PERICARDIUM: Trivial pericardial effusion. IVC: Collapses with inspirations. Normal size. PLEURA: CONCLUSION: 1. Global left ventricular systolic function is normal. Estimated left ventricular ejection fraction is 60%. 2. Moderately dilated right ventricle with normal systolic function. 3. Moderate bi-atrial dilatation. 4. Mild to moderate mitral regurgitation. 5. Mild tricuspid regurgitation. 6. Mildly elevated right sided pressures. RVSP is 44 mmHg. 7. Moderately dilated aortic root. 8. Cannot rule out the presence of an atrial septal defect. A transesophageal echocardiogram is recommended for further evaluation. Adult Echocardiography Procedure Report Left Ventricle LVEDD (3.7 - 5.6 cm): 5.67 cm LVESD (2.2 - 4.0 cm): 3.43 cm LVIVS thickness (0.6 - 1.2 cm): 0.85 cm LVPW thickness (0.5 - 1.0 cm): 1.01 cm e': 0.09 m/s E - e': 11.75 LVOT Max Gradient: 2.09 mm[Hg] LVOT Area (cm2): 0.72 m/s Peak Velocity (LVOT): 0.72 m/s Mean Velocity (LVOT): 0.50 m/s LVOT Diameter 2.29 cm Left Ventricular Ejection Fraction: 60 % Left Atrium LA Volume Index (2D A2C): 49.90 ml/m2 Left Atrium Systolic Dimension: 4.66 cm Mitral Valve Mitral Valve E-Wave Peak Velocity: 1.02 m/s Right Ventricle RV Internal Diastolic Dimension: 5.06 cm Aorta AO Root Diam: 4.26 cm Ascending Ao Diam: 3.20 cm Aortic Valve AoV Area (Peak Elan): 2.43 cm2, 2.39 cm2 AoV Area (VTI): 2.42 cm2, 2.34 cm2 Peak Velocity(Antegrade Flow): 1.24 m/s, 1.20 m/s Peak Gradient(Antegrade Flow): 6.16 mm[Hg], 5.78 mm[Hg] Mean Velocity(Antegrade Flow): 0.92 m/s, 0.89 m/s Mean Gradient(Antegrade Flow): 3.76 mm[Hg], 3.50 mm[Hg] Velocity Time Integral: 28.28 cm, 26.33 cm Tricuspid Valve Peak Velocity (Regurgitant Flow): 3.03 m/s, 2.67 m/s, 3.19 m/s Pulmonic Valve Mean Gradient: 1.61 mm[Hg], 1.59 mm[Hg] Mean Velocity: 0.61 m/s, 0.57 m/s Peak Velocity: 0.95 m/s, 0.91 m/s Peak Gradient: 3.34 mm[Hg], 3.21 mm[Hg], 4.10 mm[Hg] Right Atrium Right Atrium Systolic Pressure: 90.19 ml, 90.19 ml Dictated by: Nicolette Valdez M.D. on 12/22/2023 at 15:10 Approved by: Nicolette Valdez M.D. on 12/22/2023 at 15:19 Dictated By: NICOLETTE VALDEZ Signed By: 12/22/23 1520 DD/ 1519 TD/TT: Plant Safety Engineer: TAMARA HealthcareRadiology Study observation (narrative)[facility] HospitalCA ECHO DOPPLER COMPLETEOrdered By: Radiologist Radiology on 09-05-6328JPAS [employer] Work Phone: us ABD AORTA DIAGNOSTICon [id number] ABD AORTA DIAGNOSTICEXAM: US ABD AORTA DIAGNOSTIC HISTORY: Abdominal aortic [...] Electronically authenticated by: MODE GARAY Date: 2022-12-27 15:45[facility]US ABD AORTA DIAGNOSTICon [id number] ABD AORTA DIAGNOSTIC EXAMINATION: US ABD AORTA [...] authenticated by: LUIS MANUEL MCCORMICK Date: 2022-01-16 07:21[facility] Vital Signs Date TimeVital SignValuePerforming JvpbapcyqOzgblzuf71-75-5478 10:26-0400Body fnybmm984.3 cmDaniflorinda Zamarripa MD Work Phone: NOSaint [facility] Health SystemZlgvlgpluv88-66-9720 10:26-0400Body mass index (BMI) [Ratio]32.5 kg/h2AmskhzAntony Zamarripa MD Work Phone: NOSaint [facility] SystemVzduciralg66-65-8885 10:26-0400Body oszijv915.69 kgAntony Zamarripa MD Work Phone: [facility]OS[facility] SystemMksrxqbmfa14-66-5947 10:26-0400Diastolic blood hsdomiav25 mm[Hg]Antony Zamarripa MD Work Phone: NOSaint [facility] SystemVrimdjadke59-58-3893 10:26-0400Heart rate69 /min Antony Zamarripa MD Work Phone: NOSaint [facility] SystemWncsxikpgj03-29-0189 10:26-0318SvI6% (BldA) [Mass fraction]96 %Antony Zamarripa MD Work Phone: NOSaint [facility] SystemShertbstdz86-96-5588 10:26-0400Systolic blood yvbbzjgu820 mm[Hg]Antony Zamarripa MD Work Phone: NOSaint [facility] SystemBlbkkfqyac78-21-8579 10:15-0500Body ifezna802.3 cmAntony Zamarripa MD Work Phone: NOS[facility] SystemVghbkxceih99-99-3830 10:15-0500Body mass index (BMI) [Ratio]33.47 kg/x2IryirmAntony Zamarripa MD Work Phone: [phone] Luke's Health SystemHkfodorjvs74-49-0820 10:15-0500Body cgstki950.86 kgAntony Zamarripa MD Work Phone: NOS[facility] SystemOkfawqhckr53-12-0122 10:15-0500Diastolic blood bripxdam71 mm[Hg]Antony Zamarripa MD Work Phone: NOSaint [facility] SystemTddzzaewaz16-41-7348 10:15-0500Heart rate82 /min Antony Zamarripa MD Work Phone: NOSaint [facility] Health SystemSyljcbovap54-13-4253 10:15-6294LcR5% (BldA) [Mass fraction]96 %Antony Zamarripa MD Work Phone: [facility] HospitalErkipuqghc39-59-1681 10:15-0500Systolic blood wxdztrit137 mm[Hg]Antony Zamarripa MD Work Phone: [facility] HospitalHidztxmlso18-29-5420 16:01-0500Body .9 cmNicole Dinorah DO Work Phone: noSaint Luke's Health SystemWqxiamkvzx50-97-6789 16:01-0500Body mass index (BMI) [Ratio]33.12 kg/a1Xoviwi Dinorah DO Work Phone: [facility] HospitalIwjhvtdstq83-60-5923 16:01-0500Body mdlwse103.77 kgNicole Dinorah DO Work Phone: [facility] HospitalKqexjrdrxj94-75-1056 16:01-0500Diastolic blood ccodzhes01 mm[Hg]Bennie Dinorah DO Work Phone: noSaint Luke's Health SystemVsrjslihoz48-88-8810 16:01-0500Heart rate74 /min Bennie Dinorah DO Work Phone: [facility] HospitalQejgadeend28-37-2908 16:01-0768IeG4% (BldA) [Mass fraction]96 %Bennie Dinorah DO Work Phone: noSaint Luke's Health SystemGspvvwnoaa05-79-3242 16:01-0500Systolic blood jfrcoefr095 mm[Hg]Bennie Dinorah DO Work Phone: [facility] HospitalIauqauvmqr24-19-3892 11:40-0500Body temperature 98.06 [degF]Mhd Al-Marrawi [facility]12-09-2024 11:40-0500 Diastolic blood gvdnirlw73 mm[Hg]Mhd Al-Marrawi [facility]12-09-2024 11:40-0500Heart rate83 /minMhd Al-Marrawi [facility]12-09-2024 11:40-0500Mean blood oiouudbw62 mm[Hg]Mhd Al-Marrawi [facility]12-09-2024 11:40-0500 Respiratory rate16 /minMhd Al-Marrawi [address] [place], [place] 3448112-09-2024 11:40-8674XqM3% (BldA) [Mass fraction]96 %Mhd Al-Marrawi [address] [place], [place] 3448112-09-2024 11:40-0500 Systolic blood wtcyvggj648 mm[Hg]Mhd Al-Marrawi [address] [place], [place] 3448111-18-2024 13:37-0500Body gxonlpexbtr59.52 [degF]Mhd Wa-Marrawi [address] [place], [place] 3448111-18-2024 13:37-0500 Diastolic blood mm[Hg]Mhd Al-Marrawi [address] [place], [place] 3448111-18-2024 13:37-0500Heart rate70 /minMhd Al-Marrawi [address] [place], [place] 3448111-18-2024 13:37-0500Mean blood ovrermfa732 mm[Hg]Mhd Al-Marrawi [address] [place], [place] 3448111-18-2024 13:37-0500 Respiratory rate18 /minMhd Al-Marrawi [address] [place], [place] 3448111-18-2024 13:37-6845IpL2% (BldA) [Mass fraction]97 %Mhd Al-Marrawi [address] [place], [place] 3448111-18-2024 13:37-0500 Systolic blood uloynwhw554 mm[Hg]Mhd Al-Marrawi [address] [place], [place] 3448111-12-2024 16:13-0500Body dpxerx922.3 cmNicole Dinorah DO Work Phone: [facility] HospitalFoyckbcytl64-20-7917 16:13-0500Body mass index (BMI) [Ratio]33.31 kg/e4Arogdm Dinorah DO Work Phone: [facility] HospitalOpbkxuddfe45-08-7763 16:13-0500Body tnbuwx159.32 kgNicole Dinorah DO Work Phone: [place] [address]Hcpddnmxfd73-86-8793 16:13-0500Diastolic blood ytbviomr54 mm[Hg]Bennie Dinorah DO Work Phone: [facility] HospitalVejgouvjwq24-80-6977 16:13-0500Heart rate65 /min Bennie Dinorah DO Work Phone: [place] [address]Axanugqopz64-85-0228 16:13-9240CbK5% (BldA) [Mass fraction]95 %Bennie Dinorah DO Work Phone: YOSaint Luke's Health SystemLsxvcagcpo93-29-7167 16:13-0500Systolic blood mm[Hg]Bennie Dinorah DO Work Phone: [facility] HospitalUjdzdabpmb83-95-6807 10:52-0500Body fuwgdj717.3 cmAntony Zamarripa MD Work Phone: [facility] HospitalVuytokyjei84-64-3681 10:52-0500Body mass index (BMI) [Ratio]33.33 kg/l6ChgtwaAntony Zamarripa MD Work Phone: [place] [address]Malspugvgj95-95-2385 10:52-0500Body qficvk480.41 kgAntony Zamarripa MD Work Phone: [facility] HospitalEfjhivowsf39-58-9246 10:52-0500Diastolic blood hwdxyfpd93 mm[Hg]Antony Zamarripa MD Work Phone: [place] [address]Wjpuxowmxv05-47-1197 10:52-0500Heart rate79 /min Antony Zamarripa MD Work Phone: [place] [address]Kbxhwlkxsy30-00-9018 10:52-2323SlG9% (BldA) [Mass fraction]97 %Antony Zamarripa MD Work Phone: [place] [address]Egbspwvgqt08-46-7133 10:52-0500Systolic blood wkygohii239 mm[Hg]Antony Zamarripa MD Work Phone: [facility] HospitalVdlndxqhrz28-44-4929 11:20-0400Body upvrhc236.3 cmAntony Zamarripa MD Work Phone: NOSaint [facility] Health SystemTxmmazsnlo64-09-0923 11:20-0400Body mass index (BMI) [Ratio]33.61 kg/f8HmczyhAntony Zamarripa MD Work Phone: [facility] HospitalSnnujjhaat99-81-9500 11:20-0400Body tvywom028.32 kgAntony Zamarripa MD Work Phone: [facility] HospitalXeprstnyrz21-18-2628 11:20-0400Diastolic blood sfoocqoh66 mm[Hg]Antony Zamarripa MD Work Phone: [phone] HospitalYgolczyqtd35-90-7046 11:20-0400Heart rate65 /min Antony Zamarripa MD Work Phone: NOSaint [facility] SystemYeimvlrqab78-33-4840 11:20-2188RfQ0% (BldA) [Mass fraction]94 %Antony Zamarripa MD Work Phone: [facility] HospitalMweqrciuyz91-78-4786 11:20-0400Systolic blood mm[Hg]Antony Zamarripa MD Work Phone: [facility] HospitalRyijribatp33-03-1932 15:39-0400Diastolic blood ilqeghja43 mm[Hg]Bennie Perdomo DO Work Phone: NOSaint [facility] Health SystemUfiwccyfgz82-41-9685 15:39-0400Systolic blood mm[Hg]Bennie Perdomo DO Work Phone: [facility] Encounters Encounter DateEncounter TypeCare ProviderFacilityStart: 08-13-2025 End: 20-84-2594Kupyblbul Result EncounterGeneric External Data ProviderNOMS External Department UnsolicitedStart: 08-13-2025 End: 62-36-3157Kzswepjdq Result EncounterGeneric External Data ProviderNOMS External Department UnsolicitedStart: 08-07-2025 End: 79-78-8012shyxqvcclaOMKPCUniversity Hospitals St. John Medical Centertart: 07-27-2025 End: 68-22-8943Kaddqv Jeanna Zamarripa MD Work Phone: noms Vish Siddiqui MedinceStart: 07-27-2025 End: 38-14-1986Spmvqa Jeanna Zamarripa MD Work Phone: noms Vish Siddiqui MedinceStart: 07-27-2025 End: 86-04-4460Iqudq of hemosiderin, quantAntony Zamarripa MD Work Phone: noms HealthcareStart: 07-27-2025 End: 87-23-9920Gjtksqk encounter procedureDacara Zamarripa MD Work Phone: noms Vish Siddiqui MedinceComment on above:Routine general medical examination at health care facility (Primary Dx); ACP (advance care planning); Encounter for immunization; Type 2 diabetes mellitus with diabetic neuropathy, without long-term current use of insulin (HCC); Paroxysmal atrial fibrillation (HCC); Mixed hyperlipidemia ; Primary hypertension ; 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 John Medical Centertart: 11-12-2024 End: 20-61-6167Zyfcus outpatient visit 25 minutesAntony Zamarripa MD Work Phone: noms CI FMComment on above:Type 2 diabetes mellitus with hyperglycemia, without long-term current use of insulin (CMS/HCC); Samrp-0-rkcdjtgnfkl deficiency (CMS/HCC); Other emphysema (CMS/HCC); Parkinsonism, unspecified (CMS/HCC); Type 2 diabetes mellitus with diabetic chronic kidney disease (CMS/HCC); Chronic kidney disease, stage 3a (HCC) (CMS/HCC); Paroxysmal atrial fibrillation (CMS/HCC); Type 2 diabetes mellitus with diabetic neuropathy, unspecified (CMS/HCC)Start: 11-12-2024 End: 77-10-0141wwuwoaocqaZLUUWH B BERRYNot AvailableStart: 11-11-2024 End: 80-45-0802Mwpbjk outpatient visit 25 minutesNicole Dinorah DO Work Phone: aNA Yamilet on above:Tremor (Primary Dx); Left foot drop; Memory loss; Numbness and tingling; B12 deficiency; Folic acid deficiency; JESS (obstructive sleep apnea)Start: 11-11-2024 End: 69-44-1831lzxystcldyEZTVXW DANNERNot AvailableStart: 11-11-2024 End: 51-21-9035Aykfle flowsheetNicole Dinorah DO Work Phone: ana JIMKStart: 11-11-2024 End: 09-02-8189Qzxntw flowsheetNicole Dinorah DO Work Phone: ana JIMKStart: 10-13-2024 End: 07-96-3881oxpusecsdlDrd Yaser Al-MarrawiFacility:FTMCStart: 10-13-2024 End: 13-87-3365Lcdftdr encounter procedureMhd Yaser Al-Marrawi [facility] Start: 09-25-2024 End: 01-51-1717ptlzljjgsmAlr Yaser Al-MarrawiFacility:FTMCStart: 09-25-2024 End: 08-38-8010Ikn Drop offMhd Yaser Al-Marrawi [facility] Start: 09-22-2024 End: 41-55-3629vvscauavjqRqy Yaser Al-MarrawiFacility:FTMCStart: 09-22-2024 End: 76-11-1739Mvjghep encounter procedureMhd Jannethyanna Rocha [facility] Start: 09-16-2024 End: 56-64-6463Akhjhm outpatient visit 25 minutesNicole Dinorah DO Work Phone: NORU NE NEUROComment on above:Left foot drop (Primary Dx); Parkinsonism, unspecified Parkinsonism type (CMS/HCC); Essential tremor; Diabetic peripheral neuropathy associated with type 2 diabetes mellitus (CMS/HCC); B12 deficiency; Numbness and tingling; Memory lossStart: 09-16-2024 End: 04-85-1178ezzpqcjcfrJXKGRI DANNERNot AvailableStart: 09-16-2024 End: 17-32-7855Qovita flowsheetNicole Dinorah DO Work Phone: noms NE NEUROStart: 09-16-2024 End: 71-46-9932Xsmrow flowsheetNicole Dinorah DO Work Phone: NOMS NE NEUROStart: 09-11-2024 End: 23-19-3045Ukqqap outpatient visit 25 minutesAntony Zamarripa MD Work Phone: NOMS CI FMComment on above:Uncontrolled type 2 diabetes mellitus with hyperglycemia (CMS/HCC) (Primary Dx); Diabetic peripheral neuropathy associated with type 2 diabetes mellitus (CMS/HCC); Ytnag-8-gykcbytxfvl deficiency (CMS/HCC); Type 2 diabetes mellitus with diabetic chronic kidney disease (CMS/HCC); Chronic kidney disease, stage 3a (HCC) (CMS/HCC); Abdominal aortic aneurysm, without rupture, unspecified (CMS/HCC); Emphysema due to gpxwv-7-nakmnzxxply deficiency (CMS/HCC)Start: 09-11-2024 End: 04-11-5542twicschwzkXYTVGA B BERRYNot AvailableStart: 09-23-4771oxiqljwbvb [facility] AjFacility:FTMCStart: 08-14-2024 End: 11-42-9257GvqkltHdzfmtba Yuri [facility] STATE ROUTEComment on above: Memory loss; Tremor; Parkinsonism, unspecified Parkinsonism type (CMS/HCC); B12 deficiency; Folic acid deficiencyStart: 08-07-2024 End: 72-34-6819Kcptyw Jeanna Zamarripa MD Work Phone: NOMS CI FMStart: 08-07-2024 End: 92-01-4272Idikov Jeanna Zamarripa MD Work Phone: NOMS CI FMStart: 08-07-2024 End: 80-01-8346pksqxjmzejMLPOMD B BERRYNot AvailableStart: 08-07-2024 End: 33-21-0851Oknmfy outpatient visit 25 minutesAntony Zamarripa MD Work Phone: NOMS CI FMComment on above:Diabetic peripheral neuropathy associated with type 2 diabetes mellitus (CMS/HCC) (Primary Dx); Uncontrolled type 2 diabetes mellitus with hyperglycemia (CMS/HCC); Type 2 diabetes mellitus with hyperglycemia, without long-term current use of insulin (CMS/HCC); Displacement of cervical intervertebral disc; Memory loss; Tremor; Parkinsonism, unspecified Parkinsonism type (CMS/HCC); Mixed hyperlipidemia (CMS/HCC); Primary hypertension (CMS/HCC); LVH (left ventricular hypertrophy); Prostate cancer screeningStart: 07-31-2024 End: 96-93-3853Ixnifahnl Result EncounterGeneric External Data ProviderNOMS External Department UnsolicitedStart: 07-31-2024 End: 13-17-6544Vbsfigpsm Result EncounterGeneric External Data ProviderNOMS External Department UnsolicitedStart: 07-28-2024 End: 92-57-0019Jkrtza outpatient visit 25 minutesNicole Dinorah DO Work Phone: N[facility] ROUTEComment on above:Tremor (Primary Dx); Parkinsonism, unspecified Parkinsonism type (CMS/HCC); Essential tremor; Diabetic peripheral neuropathy associated with type 2 diabetes mellitus (CMS/HCC); Memory loss; Numbness and tingling; Balance disorderStart: 07-28-2024 End: 46-02-6626nxrrainelkZMLXQB DANNERNot AvailableStart: 07-28-2024 End: 42-11-9532Yswqch flowsheetNicole Dinorah DO Work Phone: noMS ALVARADO [facility] ROUTEStart: 07-28-2024 End: 51-77-6574Pkjegf flowsheetNicole Dinorah DO Work Phone: noms [facility]ST[facility]O [facility] ROUTEStart: 07-02-2024 End: 87-46-4943Qozlkuhuu Result EncounterGeneric External Data ProviderNOMS External Department UnsolicitedStart: 07-02-2024 End: 30-09-2743Kbgrotfff Result EncounterGeneric External Data ProviderNOMS External Department UnsolicitedStart: 05-27-2024 End: 41-16-5805Gbpuzsbej Result EncounterGeneric External Data ProviderNOMS External Department UnsolicitedStart: 05-27-2024 End: 53-59-1313Akmsqfvla Result EncounterGeneric External Data ProviderNOMS External Department UnsolicitedStart: 12-22-2023 End: 94-68-5575Mbtgnwhki Result EncounterGeneric External Data ProviderNOMS External Department UnsolicitedStart: 12-22-2023 End: 06-65-2258Oildkvkuy Result EncounterGeneric External Data ProviderNOMS External Department UnsolicitedStart: 12-27-2022 End: 98-17-6253ahzluyrmsaNNXOSMC TUCKERFacility:Z0Ftmvv: 01-14-2022 End: 91-61-3491mnyvpjscgoFAEAAOC BOESFacility:R8Fkdwe: 07-15-2018 End: 44-84-8343Tgfukju encounterDEFAULT PHYSICIANFacility:[facility] CENTERtart: 06-11-2018 End: 34-14-2370Yqmlaaj encounterDEFAULT PHYSICIANFacility:[facility] Procedures DateProcedureProcedure DetailPerforming ClinicianStart: 23-65-2317BQ ECHO DOPPLER COMPLETEGeneric External Data ProviderStart: 70-01-4593Opuebcoasl glycosylated v3iOzpeygcara Zamarripa MD Work Phone: Start: 85-51-3027Fn abdominal aorta real time screen study aaaGeneric External Data ProviderStart: 20-00-2721Pygdignrbv glycosylated d9pWqqmkucara Zamarripa MD Work Phone: Start: 00-05-1605Yiicecebix glycosylated e0hKlmzbfcara Zamarripa MD Work Phone: Start: 81-84-5774XVD BASIC METABOLIC PANELGeneric External Data ProviderStart: 29-55-3460RVN BASIC METABOLIC PANELGeneric External Data ProviderStart: 06-72-6381KO PULMONARY FUNCTION TESTGeneric External Data ProviderStart: 07-54-3363VO ECHO DOPPLER COMPLETEGeneric External Data Provider Start: 88-56-4222JkwwiewrlkVvc [employer] Comment on above:Cysto/REZUM 02/06/2019AppendectomyMhd [employer] ColonoscopyMhd [employer] Elbow region structure (body structure)d [employer] Plan of Treatment DateCare ActivityDetailAuthorStart: 09-22-2026Medicare Annual Wellness (AWV) Medicare Annual Wellness (AWV)NOMS HealthcareStart: 65-42-1762Fwbljylt screening Diabetes: Retinopathy ScreeningNOME HealthcareStart: 21-19-1462Kcjfc screening for proteinDiabetes: Urine Protein ScreeningNOME HealthcareStart: 10-26-2025 Hemoglobin A1c measurementDiabetes: Hemoglobin U2KEUOD HealthcareStart: 10-05-2025 End: 62-77-6839Jmlzosr encounter qirihfmiv26/01/2025 10:00 AM EST [facility] [address] [facility] [address] [place] [address] Antony Zamarripa MD [address] [facility] [address] [place] [address] NOMS Vish [facility]mondnceStart: 08-19-2025 Urine screening for proteinDiabetes: Urine Protein ScreeningNOME Healthcare Start: 19-20-6450Iklcbbuhn for malignant neoplasm of colonNOME HealthcareStart: 07-27-2025 End: 23-08-9585Wlxsifgkmsdyz metabolic 2000 panel - Serum or PlasmaComprehensive metabolic panel Lab Routine Type 2 diabetes mellitus with diabetic neuropathy, without long-term current use of insulin (HCC) Paroxysmal atrial fibrillation (HCC) Expected: 07/27/2025 (Approximate), Expires: 07/27/2026[facility] Comment on above:Expected: 07/27/2025 (Approximate), Expires: 07/27/2026Start: 07-27-2025 End: 30-88-1636Mbfgt 1996 panel - Serum or PlasmaLipid panel Lab Routine Mixed hyperlipidemia Expected: 07/27/2025 (Approximate), Expires: 07/27/2026NOME HealthcareComment on above:Expected: 07/27/2025 (Approximate), Expires: 07/27/2026Start: 07-27-2025 End: 47-96-3415BKD W/REFLEX TO FT4TSH W/REFLEX TO FT4 Lab Routine Type 2 diabetes mellitus with diabetic neuropathy, without long-term current use of insulin (HCC) Paroxysmal atrial fibrillation (HCC) Expected: 07/27/2025 (Approximate), Expires: 07/27/2026NOME HealthcareComment on above:Expected: 07/27/2025 (Approximate), Expires: 07/27/2026Start: 07-27-2025 End: 11-94-5896Dnxiyuy encounter ehkyodanb63/22/2025 10:30 AM EDT [facility] [address] [facility] [address] [place] [address] Antony Zamarripa MD [address] [facility] [address] [place] [address] ArrivedNOME [place] Adventhealth RedmondnceComment on above:ArrivedStart: 43-39-3986Htaklmepw vaccinationInfluenza Vaccine (#1)[facility] HealthcareStart: 31-80-0114Xcivqanz screeningDiabetes: Retinopathy Screening [facility] HealthcareStart: 10-44-9805Gkatcnibgh A1c measurementDiabetes: Hemoglobin I9HPTWY HealthcareStart: 01-13-2025 End: 28-97-9987Nqzaigd encounter lyuhjznnm34/11/2025 3:40 PM EDT Office Visit [facility] ALVARAD[facility] [address] [place] [address] Fanny Gottlieb NP [address] [place] IVAN BELLEVUEStart: 11-12-2024 End: 59-09-5143Ltranmr encounter /08/2025 10:15 AM EST Office Visit [facility] [address] [facility] [address] [place] [phone] Antony Zamarripa MD [address] [place] [address] NOM[facility] CI FMStart: 11-11-2024 End: 56-40-1402Marqvam encounter ovmeqlahf88/07/2025 3:45 PM EST Office Visit [facility] [address] [place] [phone] Bennie Perdomo, DO [address] [place] [address] [facility] NE NEUROStart: 07-96-7027Muyljhghvv A1c measurementDiabetes: Hemoglobin T3BNUVS HealthcareStart: 09-16-2024 End: 35-13-2561Rytfzxz encounter ztefktddc45/12/2024 4:15 PM EST Office Visit [facility] [address] [place] [address] Bennie Perdomo, DO [address] [place] [address] [facility] NE NEUROStart: 09-11-2024 End: 10-39-8838Moubyxl encounter tpcwiqkwt86/07/2024 11:00 AM EST Office Visit [facility] [address] [facility] [address] [place] [address] Antony Zamarripa MD [address] [place] [address] NOMS CI FMStart: 90-62-0189Etgxd screening for protein Diabetes: Urine Protein ScreeningBRIGHAM CITY COMM[facility] HealthcareStart: 08-15-2024 End: 86-82-1233Drplfohobzzwz metabolic 2000 panel - Serum or PlasmaComprehensive metabolic panel Lab Routine Uncontrolled type 2 diabetes mellitus with hyperglycemia (CMS/HCC) Expected: 08/15/2024 (Approximate), Expires: 08/15/2025 NOMS HealthcareComment on above:Expected: 08/15/2024 (Approximate), Expires: 08/15/2025Start: 08-15-2024 End: 31-56-2737Spwyp 1996 panel - Serum or PlasmaLipid panel Lab Routine Mixed hyperlipidemia (CMS/HCC) Expected: 08/15/2024 (Approximate), Expires:08/15/2025 NOMS HealthcareComment on above:Expected: 08/15/2024 (Approximate), Expires: 08/15/2025Start: 07-28-2024 End: 56-02-1078Hribcgj encounter procedureNOMARYMOUNT HOSPITAL ROUTEComment on above:ArrivedStart: 09-21-2024Medicare Annual Wellness (AWV)Medicare Annual Wellness (AWV)[facility] HealthcareStart: 46-96-2927Hpngfwngd vaccinationInfluenza Vaccine (#1)[facility] HealthcareStart: 03-65-0013Oljjmpqnnv A1c measurementDiabetes: Hemoglobin R4VIUIO HealthcareStart: 54-61-5173Bgcftjybr for malignant neoplasm of colonNOME HealthcareCBC W Auto Differential panel - BloodCBC and differential Lab Routine Uncontrolled type 2 diabetes mellitus with hyperglycemia (CMS/HCC) Ordered: 08/15/2024[facility] HealthcareComment on above:Ordered: 08/15/2024BC W Auto Differential panel - BloodCBC and differential Lab Routine Type 2 diabetes mellitus with diabetic neuropathy, without long-term current use of insulin (HCC) Paroxysmal atrial fibrillation (HCC) Ordered: 07/27/2025[facility] Work Phone: Comment on above:Ordered: 07/27/2025 Microalbumin/Creatinine panel in random UrineMicroalbumin / creatinine urine ratio Lab Routine Type 2 diabetes mellitus with hyperglycemia, without long-term current use of insulin (CMS/HCC) Ordered: 08/15/2024NOME HealthcareComment on above:Ordered: 08/15/2024rostate specific Ag [Mass/volume] in Serum or Plasma PSA Lab Routine Prostate cancer screening Ordered: 08/15/2024[facility] Work Phone: Comment on above:Ordered: 08/15/2024rostate specific Ag [Mass/volume] in Serum or PlasmaPSA Lab Routine Prostate cancer screening Ordered: 07/27/2025[facility] HospitalComment on above:Ordered: 07/27/2025 Immunizations Immunization DateImmunizationNotesChristianacare IixinrfnVgsgigae56-07-8245hfmwrclrb, high dose seasonal, preservative-Alma Zamarripa MD Work Phone: [facility] HospitalWrvjpjgnzx03-77-2048evfdbtmzc, high dose seasonal, preservative-freeBennie Perdomo DO Work Phone: [facility] HospitalChwcduynuz78-03-0878mddriubqt virus vaccine, unspecified formulationGeneric [facility] HospitalQvajyacdvn04-38-0572Ifspcitfl, Seasonal, Quadrivalent, AdjuvantedGeneric [facility] Work Phone: [phone]xml virus vaccine, unspecified formulationHolzer Medical Center – Jacksonric [facility] HospitalVqekudkvuf15-17-9151Oslwhjisd, High-dose Seasonal, Quadrivalent, Preservative FreeHolzer Medical Center – Jacksonric [facility] 95-13-5393njoqhx vaccine recombinantHolzer Medical Center – Jacksonric [facility]09-11-2020 Influenza, High-dose Seasonal, Quadrivalent, Preservative FreeGeneric Universal Health ServicesChftfghela31-01-1133kmcjidsrxxnz conjugate vaccine, 13 valentGeneric [facility] HospitalRtrwcfooew45-40-7760qklcdt vaccine recombinantGeneric [facility] HospitalCphwguaduu34-99-5166dhlioqeuk, high dose seasonal, preservative-freeGeneric [facility] HospitalNuwysqnstj44-41-9216lmbddaaiqndn polysaccharide vaccine, 23 valent Generic [facility] HospitalWaxnfspbjk91-66-8082kiwqqbnvy, injectable, quadrivalent, preservative freeHolzer Medical Center – Jacksonric [facility] HospitalFpddtamkkl91-69-8873ssuzdeokg, injectable, quadrivalent, preservative freeGeneric [facility]10-19-2016 influenza, injectable, quadrivalent, contains preservativeHolzer Medical Center – Jacksonric [facility] HospitalAlfoezktgx67-54-3934kbgovbass, injectable, quadrivalent, preservative free Generic [facility] HospitalBqnvfcepys35-74-9620nwxovaps influenza, intradermal, preservative freeGeneric [facility] HospitalTrvmvylfni37-34-4552njcusee and diphtheria toxoids, adsorbed, preservative free, for adult use (5 Lf of tetanus toxoid and 2 Lf of diphtheria toxoid)Generic [facility] Payers DatePayer CategoryPayerPolicy [id number] of Defense ( and others)[id number] of Defense ( and others) FOR LIFE [id number] 2022-Present [address] [place] [id number]0-7004NYLMCUV () 1.2.840.135519.1.1[id number] [id number] 2015Medicare1.2.840.187760.1.13.693.2.7.3.173844.90219-45-1253Rwsefwezgt of Defense ( and others)[id number] [id number] 1950 [id number] 2.0.1.730438.3.57[id number] 2.840.1.490422.3.57[id number] 2.840.1.348366.3.57[id number] 2.16.840.1.440540.3.57[id number] 2.16.840.1.274642.3.57[id number] 2.16.840.1.028687.3.57[id number] 2.16.840.1.555116.3.57[id number] 2.16.840.1.618071.3.579.[id number] 2.16.840.1.861675.3.579.2.[id number] 2.16.840.1.111207.3.57[id number] 2.16.840.1.901710.3.579.[id number] 2.16.840.1.743716.3.579.[id number] 2.16.840.1.716868.3.579.2.6[id number] 2.840.1.414804.3.579.2.[id number] 2.16840.1.104246.3.579.2.1259Unknown Social History DateTypeDetailFacilityStart: 11-20-2023 End: 73-76-1345Reysgyi smoking status NHISEx-smokerNOMS HealthcareStart: 11-05-1972 End: 22-72-0618Xylfdvm of tobacco useCurrent smokerNOMS HealthcareStart: 11-05-1972 End: 14-63-2684Byqdocs of tobacco useCigarette SmokerNOME HealthcareStart: 07-25-2023 End: 97-56-4539Ycvvnlkqga smoked current (pack per day) - Reported1.5NOME HealthcareStart: 11-20-2023 End: 95-90-7473Ngpbach use and exposureSmokeless tobacco non-userNOME Healthcare Start: 05-06-2024 End: 73-42-5143Ygiamstgn beverage intakeEx-drinker (finding)[facility] Start: 07-25-2023 End: 56-78-8909Rpyrtcxdacl, Afraid, Rape, and Kick questionnaire [HARK][facility] HospitalWithin the last year, have you been afraid of your partner or ex-partner?NoNOMS HealthcareStart: 53-24-3517Kgg often do you attend synagogue or islam services?Patient declinedNOMS HealthcareAre you now , , , , never or living with a partner?MarriedNOME HealthcareHow often to you have a drink containing alcohol?NeverNOMS Healthcare How hard is it for you to pay for the very basics like food, housing, medical care, and heatingHardNOMS HealthcareDo you feel stress - tense, restless, nervous, or anxious, or unable to sleep at night because yourmind is troubled all the time - these days [OSQ]Rather muchNOMS Healthcare(I/We) worried whether (my/our) food would run out before (I/we) got money to buy more.Never trueNOME HealthcareStart: 70-44-2072Duxdlmp Commentcaffeine intake: more than 4 cups per day coffee, sodaNOMS HealthcareStart: 10-33-7123Gsj assigned at birthNot on file [facility] HealthcareStart: 67-36-1580Mcxgjuz Commentcaffeine intake: more than 4 cups per dayScotland County Memorial Hospital Functional Status FlllXimpqewrvnGzcwqxVmlhltiv38-28-8855Jolkxpu Health Questionnaire 2 item (PHQ- 2) [Reported][facility] Clinical Notes 07-28-2024 to 08-07-2025 Note Date & GiaoYjjyXogvtyif23-16-2441 NoteUT Cardiology - [facility] Subjective Lucio Madrigal is a 75 y.o. year old [...] of both hands JESS (obstructive sleep apnea) Nzovg-8-ngojixtpkzc deficiency (CMS/HCC) Hypersomnia due to medical condition Hypersomnolence Hypertension Folic acid deficiency Dysuria Emphysema due to lzzlp-4-nfumffggtei deficiency (CMS/HCC) Feeling of incomplete bladder emptying [...] Medical History: Diagnosis Date Aneurysm Atrial fibrillation (CMS/HCC) COPD (chronic obstructive pulmonary [...] Disp: , Rfl: glimepirid (more content not included)...[facility] 07-27-2025 History of Present illness Narrative* Antony Zamarripa MD - 07/27/2025 10:30 AM EDT Images from the original note were not included. Subjective : Chief Complaint: Lucio Madrigal is an 74 y.o. male here [...] 40 mg by mouth in the morning. Japsfct-Sthvootorzd-Eavpxugoqu (Breztri Aerosphere) 160-9-4.8 MCG/ACT aerosol Inhale 2 [...] Do you have a medical power of criminal defense attorney?: Yes Who is your medical power of criminal defense attorney?: Objective : BP 126/68 Pulse 69 Ht [...] treatment options. Greater than 25 minutes was spentin pbba-oz-yqxc consultation and coordination of care. Assessment/Plan Diagnoses [...] panel; Future Primary hypertension Emphysema due to vrjyk-2-jrhbsbmvcpa deficiency (HCC) Diastolic dysfunction Benign essential hypertension Prostate cancer screening - PSA Degeneration of intervertebral disc of lumbar region with discogenic back pain and lower extremity pain - Ambulatory referral to Neurology; Future - He has Bilateral hip pain, I suspect it is related to his known DDD spine. On exam hips with FROMand non-tender. Memory loss - Ambulatory referral to Neurology; Future - Has been told he early Parkinsonism, refer to Neurology for evaluation. Other orders - Flu vaccine, high dose seasonal, PF (IXW880) (Fluzone High Dose) Orders Placed This Encounter Procedures Flu vaccine, high dose seasonal, PF (ZHG156) (Fluzone High Dose) POCT Glycated hemoglobin, total Electronically signed by Antony Zamarripa MD on July 27, 2025 documented in this encounterScotland County Memorial HospitalKizeskdwfy66-49-6187 NoteUT Cardiology - [facility] Subjective Lucio Madrigal is a 74 y.o. year old [...] of both hands JESS (obstructive sleep apnea) Bhikf-5-geyczmlarec deficiency (CMS/HCC) Hypersomnia due to medical condition Hypersomnolence Hypertension Folic acid deficiency Dysuria Emphysema due to uryin-2-wjotwibhynl deficiency (CMS/HCC) Feeling of incomplete bladder emptying [...] of breathing, no rales, (more content not included)...[facility]01-08-2025 History of Present illness Narrative* Antony Zamarripa MD - 11/12/2024 10:15 AM EST Images from the original note were not included. Subjective Patient ID: Lucio Madrigal is a 74 y.o. male who [...] 40 mg by mouth in the morning. Ttzjtks-Gtcvpktyggj-Xvfzbosxpy (Breztri Aerosphere) 160-9-4.8 MCG/ACT aerosol Inhale 2 [...] (Patient not taking: Reported on 11/11/2024) 90 tablet7 No current facility-administered medications on file prior [...] this for unclear reasons. New Rx was sentin. If this fails he will likely need insulin. Qfcmd-1-yqdyzlitayo deficiency (CMS/HCC) - Seeing Dr Baer, getting IV treatment for this Other emphysema (CMS/HCC) Parkinsonism, unspecified (CMS/HCC) - Dr Perdomo is seeing him for this. She started Amantadine in March for this. Continue with herfor this. Type 2 diabetes mellitus with diabetic chronic kidney disease (CMS/HCC) Chronic kidney disease, stage 3a (HCC) (CMS/HCC) Paroxysmal atrial fibrillation (CMS/HCC) Type 2 diabetes mellitus with diabetic neuropathy, unspecified (CMS/HCC) Follow up in about 6 weeks (around 12/24/2024) for DM- A1C. documented in this encounterScotland County Memorial HospitalAoekrebqlf99-14-2355 History of Present illness Narrative* Bennie Perdomo, - 11/11/2024 3:45 PM EST Subjective The patient had an appt with [...] He thinks that it did help. His refurbish technician does not want him to stop any [...] his knees hurt if he rides the stationarybike. Past Medical History: Diagnosis Date Afib ([facility]) Biceps tendinosis of right shoulder 09/14/2017 Bursitis, Labral Tear Brachial neuritis or radiculitis 07/06/2017 Collapsed lung 2006 fx hip d/t fall Diabetes mellitus, type 2 ([facility]) Disturbance of skin sensation 07/06/2017 Hypertension ([facility]) LVH (left ventricular hypertrophy) 05/29/2023 Mitral regurgitation [...] ant. ethmoidectomy, frontal sinusotomy, HHT VASECTOMY 1978 Family History Problem Relation Name Age of Onset COPD Mother Lung disease Mother Hypertension Father Heart disease Father Hypertension Sibling Heart disease Sibling Stroke Sibling Social History Tobacco Use Smoking status: Former Current packs/day: 0.00 Average packs/day: 1.5 packs/day for 27.0 years (40.5 ttl pk-yrs) Types: Cigarettes Start date: 1972 Quit date: 1999 Years since quittin.0 Smokeless tobacco: Never Substance [...] by mouth in the morning and 1 tablet(100 mg) before bedtime. Left foot drop Memory loss Numbness and tingling B12 deficiency Folic acid deficiency JESS (obstructive sleep apnea) 73-year-old male with a mixed tremor. On the right he has more of an essential tremor on the left he has a very mild parkinsonism. We did try amantadine in the past and it did not help the tremor. Hestates that Dr. Zamarripa gave him a new prescription and he tried it for a month and feels like it mayhave helped the tremor this time. We will [...] cardiac issues and meds. He is on Eliquisso he can not have primidone as it is an enzyme inducer. Cardiology did not approve him starting a beta gabriella At this time the patient is not exhibiting any other features of Parkinson's disease other than theleft upper extremity tremor at rest and with [...] We need to get a download from [employer] as he got a new machine and he feels like it is too much pressure. We may need to change his settings and we need to check the compliance download. Plan: Continue with the PT Increase home exercises We will leave any further workup for a gammopathy to hematology Can consider AFO footdrop worsens We will get a download from [employer] and see if we can adjust his [...] clinic: 2 -3 months documented in this encounterScotland County Memorial HospitalGpftsexbux53-23-0040 NoteOncology Progress Note Chief Complaint Polyneuropathy; unsure why they are here. Diagnoses 1. Borderline Monocytosis: non specific and needs to be monitored by CBC with diff by his PCP every6-12 months. 2. Polyneuropathy: unclear etiology. No neoplastic process or factor deficiency or Lead toxicity orinfectious or autoimmune process was found. Defer back [...] evaluated for peripheral neuropathy. Patient denied any alcoholdrinking and he is a former smoker quit [...] 2.37. B12 was normal 606. Folate level isover 24. Serum protein electrophoresis was done on 08/12/2024 which revealed low gamma globulins. 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 [...] Lead toxicity or infectious or autoimmune process wasfound. Defer back to his neurologist for management [...] CTA, respirations non la (more content not included)...[facility]11-18-2024 NoteOncology Progress Note Chief Complaint New patient here for Idiopathic peripheral neuropathy, no specific questions or concerns. History of Present Illness Patient is 74-year-old nice gentleman with history of BPH with urinary obstruction and history of dysuria and incomplete bladder emptying with polyuria who was referred to our hematology and medical oncology clinic from neurology to be evaluated for peripheral neuropathy. Patient denied any alcoholdrinking and he is a former smoker quit [...] 2.37. B12 was normal 606. Folate level isover 24. Serum protein electrophoresis was done on 08/12/2024 which revealed low gamma globulins. 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 [...] for monoclonal gammopathy, factor deficiency, metal toxicity, lymphoproliferativedisorders and for paraneoplastic syndrome. We will also [...] foot drop while wa (more content not included)...[facility]11-12-2024 History of Present illness Narrative* Bennie Perdomo, DO - 09/16/2024 4:15 PM EST Subjective The patient has an appt with [...] the tremors are mainly in the hands/arms. Hiswife states he even tremor when he is [...] does interfere with him signing his name andit can be an issue with his online banking as his signature used to be rather neat. He states that it is so bad that he is almost unable to use his cell phone. His refurbish technician does not want him to stop any [...] do it. states that it is hard toget him off of the love seat. He [...] 1999 Years since quittin.8 Smokeless tobacco: Never Substance [...] Cardiology did not approve him starting a betablocker If his Afib ever gets under control and he gets out of Afib he could come off the Eliquis and then we could use the Mysoline / primidone however that is not the case at this time they understand the limitations in medication\ At this time the patient is not exhibiting any other features of Parkinson's disease other than theleft upper extremity tremor at rest and with [...] to clinic: 3 weeks documented in this encounterScotland County Memorial HospitalVzkrunvzyk40-87-2297 History of Present illness Narrative* Antony Zamarripa MD - 09/11/2024 11:00 AM EST Images from the original note were not included. HPI Results Additional comments: Lab results Last edited by Sandra Jordan LPN on 09/11/2024 10:52 AM. Subjective Patient ID: Lucio Madrigal is a 74 y.o. male who [...] 40 mg by mouth in the morning. Becmzat-Kzhvcbxuzky-Chzgfrztir (Breztri Aerosphere) 160-9-4.8 MCG/ACT aerosol Inhale 2 [...] by mouth Daily 90 tablet 3 [DISCONTINUED] Yrkcmkgwmfy-Hcknhlqrr-Dypnmd (Trelegy Ellipta) 100-62.5-25 MCG/ACT aerosol powder Inhale [...] 2000 Years since quittin.8 Smokeless tobacco: Never Vaping [...] Sibling Past Medical History: Diagnosis Date Afib (CMS/[facility]) Biceps tendinosis of right shoulder 09/14/2017 Bursitis, [...] sinusotomy, HHT VASECTOMY 1978 Visit Vitals BP 128/82 Pulse 79 Ht [...] compared to the equimolar-standardized total PSA ([facility] [place]). Comparison of serial PSA results should be [...] equation in the estimation of LDL-C. Kayden ROMERO et al. MARK. 2013;310(19): 7157-0991 (http://education.ponUp.[employer]/faq/KBC213) CHOL/HDLC RATIO 08/19/2024 4.1 <5.0 (calc) Final [...] 0.70 - 1.30 mg/dL Final TB[facility] EGFR-AF [place] 07/31/2024 >60 >=60 Final TBH EGFR-NON AF [place] 07/31/2024 50 (L) >=60 Final BUN CREATININE [...] associated with type 2 diabetes mellitus (CMS/HCC) Nrewh-6-acqppzkoxzm deficiency (CMS/HCC) - Per Dr Baer. He is receiving infusions for this. Type 2 diabetes mellitus with diabetic chronic kidney disease (CMS/HCC) Chronic kidney disease, stage 3a (HCC) (CMS/HCC) - Stable. Abdominal aortic aneurysm, without rupture, unspecified (CMS/HCC) Emphysema due to kjriq-4-mvziaecesyp deficiency (CMS/HCC) Follow up in about 2 months (around 11/11/2024) for DM- A1C. documented in this encounterScotland County Memorial HospitalDkpszyqelo46-74-6922 Hospital Discharge instructions Follow Up Care 09/08/2024 11:39:31 With:Aj BUSH, Serenity Urbina, MED, ONC Address: When: Unknown Comments:Labs today.24 hour urine tests.RTC in 3 weeks for results. [facility] 10-10-2024 Telephone encounter Note* Telephone Encounter - Yossi Welch MA - 08/14/2024 12:34 PM EDT Pt calls stating that at last visit [...] to send to proper pharmacies. Thank you [facility] HospitalCdrssvxzgo65-98-9534 Miscellaneous Notes* Telephone Encounter - Yossi Welch MA - 08/14/2024 12:34 PM EDT Pt calls stating that at last visit [...] proper pharmacies. Thank you documented in this encounterScotland County Memorial HospitalYyrydglrzp28-63-0554 History of Present illness Narrative* Antony Zamarripa MD - 08/07/2024 11:15 AM EDT Images from the original note were not included. HPI Med Refill Additional comments: Glimepiride,januvia,celebrex-- [facility] Last edited by Sandra Jordan LPN on 08/07/2024 11:28 AM. Subjective Patient ID: Lucio Madrigal is a 74 y.o. male who [...] the morning and 1 spray before bedtime. Thfscpqfher-Gzassadjy-Blvkba (Trelegy Ellipta) 100-62.5-25 MCG/ACT aerosol powder Inhale [...] 0.70 - 1.30 mg/dL Final TBH EGFR-AF [place] 07/31/2024 >60 >=60 Final TBH EGFR-NON AF [place] 07/31/2024 50 (L) >=60 Final BUN CREATININE RATIO 07/31/2024 16.5 Final CALCIUM 07/31/2024 9.6 8.5 - 10.1 mg/dL Final Assessment/Plan Diagnoses and all orders for this visit: Diabetic peripheral neuropathy associated with type 2 diabetes mellitus (CMS/HCC) Uncontrolled type 2 diabetes mellitus with hyperglycemia (CMS/HCC) - POCT Glycated hemoglobin, total - CBC and differential - Comprehensive metabolic panel; Future - Restart medications (he had run out) Type 2 diabetes mellitus with hyperglycemia, without long-term current use of insulin (CMS/HCC) - empagliflozin-metFORMIN (Synjardy) 12.5-1000 MG; Take 1 [...] Memory loss Tremor Parkinsonism, unspecified Parkinsonism type (CMS/HCC) Mixed hyperlipidemia (CMS/HCC) - Lipid panel; Future Primary hypertension (CMS/HCC) LVH (left ventricular hypertrophy) Prostate cancer screening - PSA Follow up in about 4 weeks (around 09/04/2024) for Test/Lab Review, F/U med changes. documented in [facility] encounterSc[facility] [id number] History of Present illness Narrative* Bennie Perdomo, - 07/28/2024 3:15 PM EDT Subjective Pt. Is here with his . He stopped the amiodarone per cardiology as his A-fib is doing better since his ablation. The refurbish technician wanted to stop the amiodarone and see [...] unable to use his cell phone. His refurbish technician does not want him to stop any other of his medication. He states that his memory is worse. states he can remember things from 15 years ago but not from an hour ago. He scored 27/30 on his MMSE at his initial visit. He also states he's been having an increase in balance issues. This is increase when he is standingup from sitting. He is not exercising. He [...] to see if he could do a lowdose of beta- gabriella such as Inderal [place]. At that time they wanted to take him off of the [id number] and see if that helps the tremor. It has not. He has an appointment with them on and Franki hopeful that to go on Inderal at that point in time. However if his Afib is controlled and they take him off of Eliquis then we certainly could add in the Mysoline at that point in time. At this time the patient is not exhibiting any other features of Parkinson's disease other than theleft upper extremity tremor at rest and with walking. There is no rigidity or Bradykinesia. He continues to complain of some mild memory loss however at this time appears to be more of a mildcognitive impairment and some mild forgetfulness but is not overall affecting his day-to-day functioning. HE is overall functioning well. His last MMSE was 27/30. We will monitor this over time. 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 This was seen on hisEMG. He has balance issues and gait ataxia [...] MMSE 27/30 Repeat MMSE at next visit Call and [...] to clinic: 3 weeks documented in this encounterSc[facility] HospitalEvaluation + Plan note Future Appointments Appointment Date:10/13/2024 10:20:00 AM Scheduled Provider:Aj BUSH, Serenity [place] Location:[facility].ONCOLOGY Appointment Type:ONC Office Visit 20 ([facility]) Future Scheduled Tests Laboratory* Lab Miscellaneous-LC 09/23/24 * Lab Miscellaneous-LC 09/23/24 [facility] Evaluation + Plan note Future Appointments Appointment Date:10/13/2024 10:20:00 AM Scheduled Provider:Aj BUSH, Serenity Urbina Location:[facility].ONCOLOGY Appointment Type:ONC Office Visit 20 (FT) Diagnostic Tests Pending * Hepatitis B Surface Antigen 09/22/24 * Hepatitis B Surface Antibody 09/22/24 * Hepatitis A Antibody IgM 09/22/24 * Free K+L Lt Chains,Qn,S 09/22/24 * Rheumatoid Factor Quantitative 09/22/24 * IVAN w/Reflex if POS 09/22/24 * Angiotensin Converting Enzyme 09/22/24 * Beta 2 Microglobulin 09/22/24 * Comp panel: Leuk/Lym [id number] 09/22/24 * DONA and PE, Serum 09/22/24 * HCV Antibody RFX to Quant PCR 09/22/24 * Lead, Adult 09/22/24 * Copper Level 09/22/24 * Alpha Fetoprotein Tumor Marker 09/22/24 * Hep B Core Ab, IgM 09/22/24 * HIV Screen 4th Generation wRfx 09/22/24 * CA 19-9 09/22/24 * IgE, Quant 09/22/24 Future Scheduled Tests Laboratory* Lab Miscellaneous-LC 09/23/24 * Lab Miscellaneous-LC 09/23/24 [facility] Evaluation + Plan note Future Appointments Appointment Date:10/13/2024 10:20:00 AM Scheduled Provider:Aj BUSH, Serenity Urbina Location:[facility].ONCOLOGY Appointment Type:ONC Office Visit 20 ([facility]) [facility] evaluation note* Diagnosis Memory loss Tremor Abnormal involuntary movements Parkinsonism, unspecified Parkinsonism type (CMS/HCC) B12 deficiency Folic acid deficiency Other B-complex deficiencies documented in this encounter [facility] HealthcareEvaluation note* Diagnosis Diabetic peripheral neuropathy associated [...] neoplasm of prostate documented in this encounter [facility] HealthcareEvaluation note* Diagnosis Uncontrolled type 2 diabetes mellitus with hyperglycemia (CMS/HCC)- Primary Diabetic peripheral neuropathy associated with type 2 diabetes mellitus (CMS/HCC) Igwkb-7-byqlwartoqh deficiency (CMS/HCC) Jsyso-9-tzavzywgkod deficiency Type 2 diabetes mellitus with diabetic chronic kidney disease (CMS/HCC) Chronic kidney disease, stage 3a (HCC) (CMS/HCC) Abdominal aortic aneurysm, without rupture, unspecified (CMS/HCC) Emphysema due to bunqp-2-ejkutekmlps deficiency (CMS/HCC) Other emphysema documented in this encounter [facility] HealthcareEvaluation note* Diagnosis Left foot drop- Primary Other acquired deformity of ankle and foot Parkinsonism, unspecified Parkinsonism type (CMS/HCC) Essential tremor Diabetic peripheral neuropathy associated with type 2 diabetes mellitus (CMS/HCC) B12 deficiency Numbness and tingling Disturbance of skin sensation Memory loss documented in this encounter [facility] HealthcareEvaluation note* Diagnosis Tremor- Primary Abnormal involuntary movements Parkinsonism, unspecified Parkinsonism type (CMS/HCC) Essential tremor Diabetic peripheral neuropathy associated with type 2 diabetes mellitus (CMS/HCC) Memory loss Numbness and tingling Disturbance of skin sensation Balance disorder documented in this encounter [facility] HealthcareEvaluation note* Diagnosis Tremor- Primary Abnormal involuntary movements Left foot drop Other acquired deformity of ankle and foot Memory loss Numbness and tingling Disturbance of skin sensation B12 deficiency Folic acid deficiency Other B-complex deficiencies JESS (obstructive sleep apnea) Obstructive sleep apnea (adult) (pediatric) documented in this encounter [facility] HealthcareEvaluation note* Diagnosis Type 2 diabetes mellitus with hyperglycemia, without long-term current use of insulin (CMS/HCC) Dmykj-5-azqrhpnwmzj deficiency (CMS/HCC) Yhtkd-1-vczeyklezto deficiency Other emphysema (CMS/HCC) Other emphysema Parkinsonism, unspecified (CMS/HCC) Type 2 diabetes mellitus with diabetic chronic kidney disease (CMS/HCC) Chronic kidney disease, stage 3a (HCC) (CMS/HCC) Paroxysmal atrial fibrillation (CMS/HCC) Atrial fibrillation Type 2 diabetes mellitus with diabetic neuropathy, unspecified (CMS/HCC) documented in this encounter [facility] HealthcareEvaluation note* Diagnosis Routine general medical examination at health care facility- Primary Routine general medical examination at a health care facility ACP (advance care planning) Other specified counseling Encounter for immunization Type 2 diabetes mellitus with diabetic neuropathy, without long-term current use of insulin (HCC) Paroxysmal atrial fibrillation (HCC) Atrial fibrillation Mixed hyperlipidemia Mixed hyperlipidemia Primary hypertension Unspecified essential hypertension 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) Other emphysema Diastolic dysfunction Unspecified heart disease Benign essential hypertension Essential hypertension, benign Prostate cancer screening Special screening for malignant neoplasm of prostate Degeneration of intervertebral disc of lumbar region with discogenic back pain and lower extremity pain Memory loss documented in this encounter [facility] HealthcareHospital course Narrative No data available for this section [facility] Hospital Discharge instructions No data available for this section [facility] Progress note No data available for this section [facility] Summary Purpose Family History No Family [...] section and content) DATE CREATED AUTHOR 07/30/2018 [facility] DATE CREATED AUTHOR AUTHOR'S ORGANIZ ATION 01/10/2023 [facility] DATE CREATED AUTHOR AUTHOR'S ORGANIZ ATION 09/24/2024 [facility] DATE CREATED AUTHOR AUTHOR'S ORGANIZ ATION 09/28/2024 [facility] DATE CREATED AUTHOR AUTHOR'S ORGANIZ ATION 10/02/2024 [facility] DATE CREATED AUTHOR AUTHOR'S ORGANIZ ATION 10/04/2024 [facility] DATE CREATED AUTHOR AUTHOR'S ORGANIZ ATION 10/07/2024 [facility] DATE CREATED AUTHOR AUTHOR'S ORGANIZ ATION 10/24/2024 [facility] DATE CREATED AUTHOR AUTHOR'S ORGANIZ ATION 11/18/2024 [facility] DATE CREATED AUTHOR AUTHOR'S ORGANIZ ATION 07/27/2025 [facility] DATE CREATED AUTHOR AUTHOR'S ORGANIZ ATION 09/13/2025 [facility] Care Teams (unrecognized sec tion and content) Team MemberRelationshipSpecialtyStart DateEnd Date Antony Zamarripa MD [address] [place] [address] PCP - GeneralInternal Medicine03/13/23 Antony Zamarripa MD [address] [place] [address] PCP - [facility]01/04/24Te MemberRelationshipSpecialtyStart DateEnd Antony Zamarripa MD [address] [place] [address] PCP - [facility]03/13/23 Antony Zamarripa MD [address] [place] [address] [facility] - [facility]01/04/24Te MemberRelationshipSpecialtyStart DateEnd Antony Zamarripa MD [address] [place] [address] PCP - [facility]03/13/23 Antony Zamarripa MD [address] [place] [address] [facility] - [facility]01/04/24Te MemberRelationshipSpecialtyStart DateEnd Antony Zamarripa MD [address] [place] [address] PCP - [facility]03/13/23 Antony Zamarripa MD [address] [place] [address] [facility]01/04/24Te MemberRelationshipSpecialtyStart DateEnd Date Antony Zamarripa MD [address] [place] [address] PCP - [facility]03/13/23 Antony Zamarripa MD [address] [place] [address] PCP - [facility]01/04/24Te MemberRelationshipSpecialtyStart DateEnd Antony Zamarripa MD [address] [place] [address] PCP - [facility]03/13/23 Antony Zamarripa MD [address] [place] [address] [facility]01/04/24Te MemberRelationshipSpecialtyStart DateEnd Antony Zamarripa MD [address] [place] [address] PCP - [facility]03/13/23 Antony Zamarripa MD [address] [place] [address] [facility]01/04/24Te MemberRelationshipSpecialtyStart DateEnd Antony Zamarripa MD [address] [place] [address] PCP [facility]03/13/23 Antony Zamarripa MD [address] [place] [address] PCP [facility]01/04/24Te MemberRelationshipSpecialtyStart DateEnd Date Antony Zamarripa MD [address] [place] [address] PCP - [facility]03/13/23 Antony Zamarripa MD [address] [place] [address] [facility] - [facility]01/04/24Team MemberRelationshipSpecialtyStart DateEnd Antony Zamarripa MD [address] [place] [address] PCP - [facility]03/13/23 Antony Zamarripa MD [address] [place] [address] [facility] - [facility]01/04/24Team MemberRelationshipSpecialtyStart DateEnd Antony Zamarripa MD [address] [place] [address] [facility] - [facility]03/13/23 Antony Zamarripa MD [address] [place] [address] [facility] - [facility]01/04/24Team MemberRelationshipSpecialtyStart DateEnd Antony Zamarripa MD [address] [place] [address] PCP - [facility]03/13/23 Antony Zamarripa MD [address] [place] [address] [facility] - [facility]01/04/24 Juliann Wood, COUNSELING SERVICES DIRECTOR [address] [place] [address] [facility] Medicine8/Team MemberRelationshipSpecialtyStart DateEnd Date Antony Zamarripa MD [address] [place] [address] PCP - GeneralInternal Medicine03/13/23 Antony Zamarripa MD [address] [facility] [address] [place] [address] PCP - [facility]01/04/24 Juliann Wood, COUNSELING SERVICES DIRECTOR [address] [place] [address] Social WorkerFamily Medicine Reason for Visit (unrecogniz ed section and content) ReasonCommentsHypertensionDiabetesMed RefillGlimepiride,januvia,celebrex-- express scriptsReasonCommentsDiabetesResultsLab resultsReasonCommentsTremors Memory LossPeripheral NeuropathyReasonCommentsPeripheral NeuropathyMemory Loss ReasonCommentsTremorsMemory Lossidiopathic peripheral neuropathyReasonComments DiabetesReasonCommentsMedicare Annual Wellness Visit Subsequent FOR RECORDS PERTAINING TO PATIENTS WHO ARE [...] BE BASED ON THE PRIMARY CLINICAL RECORDS. [employer] provides no warranty or guarantee of the accuracy or completeness of information in this document.
--- OUTSIDE RECORDS SUMMARY | 2025-09-17 05:27 | XMS_ITS | Encounter Summary ---
Author Organization [facility] Address [address] [place] [address] Care Team Providers Care Pathology Collector Name Role Phone Antony Zamarripa MD Primary Care Provider [phone] Antony Zamarripa MD Unavailable [phone] Juliann Wood ETHNOARCHAEOLOGY PROFESSOR Unavailable [phone] Encounter Details DateTypeDepartmentCare Team (Latest Contact Info)Weizvcineus17/17/2024Clinisync Result Encounter [facility] External Department Unsolicited Provider, Generic External Data Social History Tobacco UseTypesPacks/DayYears UsedDateSmoking Tobacco: FormerCigarettes1.527 1972 - 1999Smokeless Tobacco: NeverAlcohol UseStandard Drinks/WeekCommentsNot Currently0 (1 standard drink = 0.6 oz pure alcohol)caffeine intake: more than 4 cups per dayHumiliation, Afraid, Rape, and Kick questionnaireAnswerDate Recorded Within the last year, have you been afraid of your partner or ex-partner?No 07/25/2023Within the last year, have you been humiliated or emotionally abused in other ways by your partner or ex-partner?No07/25/2023Within the last year, have you been kicked, hit, slapped, or otherwise physically hurt by your partner or ex-partner?No07/25/2023Within the last year, have you been raped or forced to have any kind of sexual activity by your partner or ex-partner?No07/25/2023 Social Connection and Isolation PanelAnswerDate RecordedIn a typical week, how many times do you talk on the phone with family, friends, or neighbors?More than three times a week07/25/2023How often do you get together with friends or relatives?Twice a week07/25/2023How often do you attend christianity or temple services?Patient otgvnqkv35/20/2023o you belong to any clubs or organizations such as christianity groups, unions, [employer] or athletic groups, or school groups? Patient owdumpqv88/20/2023How often do you attend meetings of the clubs or organizations you belong to?Patient pwufrdvz52/20/2023re you , , , , never , or living with a partner?Ejnewrg2507/25/2023 AUDIT-CAnswerDate RecordedQ1: How often do you have a drink containing alcohol? Never07/25/2023verage Number of DrinksNot on file07/25/2023Frequency of Binge DrinkingNot on file07/25/2023Overall Financial Resource Strain (CARDIA)Answer Date RecordedHow hard is it for you to pay for the very basics like food, housing, medical care, and heating?Hard07/25/2023HQ-2AnswerDate RecordedPatient Health Questionnaire-2 Avybr941[facility] [place] of Occupational Health - Occupational Stress QuestionnaireAnswerDate RecordedDo you feel stress - tense, restless, nervous, or anxious, or unable to sleep at night because your mind is troubled all the time - these days?Rather much07/25/2023Exercise Vital SignAnswerDate RecordedOn average, how many days per week do you engage in moderate to strenuous exercise (like a brisk walk)?1 day07/25/2023On average, how many minutes do you engage in exercise at this level?20 min07/25/2023Hunger Vital SignAnswerDate RecordedWithin the past 12 months, you worried that your food would run out before you got the money to buymore.Never true07/25/2023 Within the past 12 months, the food you bought just didn't last and you didn't have money to get more.Never true07/25/2023RAPARE - TransportationAnswerDate RecordedIn the past 12 months, has lack of transportation kept you from medical appointments or from getting medications?No07/25/2023In the past 12 months, has lack of transportation kept you from meetings, work, or from getting things needed for daily living?No07/25/2023Housing Stability Vital SignAnswerDate RecordedIn the last 12 months, was there a time when you were not able to pay the mortgage or rent on time?Patient lbmyakr9807/25/2023Number of Places Lived in the Last YearNot on file07/25/2023In the last 12 months, was there a time when you did not have a steady place to sleep or slept in ashelter (including now)? Patient mtgfpwd8107/25/2023Sex and Gender InformationValueDate RecordedSex Assigned at BirthNot on fileLegal RiqVtcw9501/17/2023 7:18 PM EDTGender Identity Not on fileSexual OrientationNot on filedocumented as of this encounter Functional Status * Over the past 2 weeks, how often have you been bothered by any of the following problems?QuestionAnswerDate of AssessmentAuthorLittle interest or pleasure in doing thingsNot at all07/27/2025 10:00 AM Sandra Gaspar LPN documented as of this encounter Plan of Treatment DateTypeDepartmentCare Team (Latest Contact Info)Xxygbjkxlkn70/08/2025 10:00 AM ESTOffice Visit [facility] [address] [facility] [address] [place] [id number] Antony Zamarripa MD [address] [facility] [address] [place] [address] 12/17/2025 11:30 AM ESTOffice Visit [facility] [place] [facility] [address] [facility] [address] [place] [address] Rafael Escalante MD [address] [facility] [address] [id number] documented as of this encounter Procedures Procedure NamePriorityDate/TimeAssociated DiagnosisCommentsCA ECHO DOPPLER WTDOQOIL06/17/2024 3:19 PM EST documented in this encounter Results * CA ECHO DOPPLER COMPLETE (12/22/2023 3:19 PM EST)Anatomical RegionLaterality ModalityOtherSpecimen (Source)Anatomical Location / LateralityCollection Method / VolumeCollection TimeReceived Time12/22/2023 3:19 PM EST Narrative 12/22/2023 3:20 PM EST [facility] ?[address] ? [place] [place] [facility] ? Cardiology Report ? Signed ? Patient: YOUNG,VINAYAK W ? MR#: [id number] ?? : 1950 ?Acct:[id number] ?? Age/Sex: 73 / M ?ADM Date: 12/20/23 ?? Loc: CARD ? Attending Dr: Pantera Tomlin M.D. ? Ordering Physician: Pantera Tomlin M.D. ?? Date of Service: 12/20/23 ?? Procedure(s): CA echo doppler complete ?? Accession Number(s): [id number] ? cc: ANTONY ZAMARRIPA ; Pantera Tomlin M.D. ? Patient Name: ? VINAYAK YOUNG ? MR#: [id number] ? : 1950 ? Exam Date: 12/20/2023 ?? Ordering Doctor: PANTERA TOMLIN ? ECHOCARDIOGRAM REPORT ? PROCEDURE: ? CA ECHO DOPPLER COMPLETE ? INDICATIONS: ? Paroxysmal atrial fibrillation ? COMPARISON: ? None. ? DESCRIPTION: ? COMPLETE ECHOCARDIOGRAM Real-time transthoracic ?? echocardiography with 2D, M-mode, spectral and color flow Doppler performed. ? QUALITY: ? Technical quality was good. ??BSA 2.2 ?? LEFT VENTRICLE: ? Normal chamber size. Normal left ventricular wall ?? thickness. Global left ventricular systolic function is normal. ?? LV EF: ? Estimated left ventricular ejection fraction is 60%. ?? DIASTOLIC: ? Not adequately assessed due to heart rhythm. ?? ATRIAL SEPTUM: ? Probable left to right shunt by color doppler evaluation. ?? Further evaluation by an agitated saline study is suggested if clinically ?? warranted. ?? LEFT ATRIUM: ? Moderate dilatation. ?? RIGHT ATRIUM: ? Moderate dilatation. ?? RIGHT VENTRICLE: ? Moderate dilatation. Normal right ventricular systolic ?? function. ? TRICUSPID VALVE: ? Normal mobility and thickness. No stenosis with mild ?? regurgitation. Mild pulmonary hypertension. RVSP 44 mmHg ? MITRAL VALVE: ? Normal mobility and thickness. ?? No evidence of mitral valve ?? stenosis. ??There is no mitral annular calcification. Mild to moderate mitral ?? regurgitation. ? AORTIC VALVE: ? Normal trileaflet appearance. No visible sclerosis. ??Normal ?? leaflet mobility. ??No evidence of aortic valve stenosis. Trivial aortic ?? regurgitation. ? AORTIC ROOT: ? Moderately dilated. Measuring 4.3 cm at the sinus level. ?? Ascending aorta is normal in size measuring 3.1 cm. ? PULMONIC VALVE: ? Normal thickness and mobility. No stenosis. Trivial ?? regurgitation. ? PERICARDIUM: ? Trivial pericardial effusion. ? IVC: ? Collapses with inspirations. Normal size. ? PLEURA: ? CONCLUSION: ? 1. Global left ventricular systolic function is normal. Estimated left ?? ventricular ejection fraction is 60%. ?? 2. Moderately dilated right ventricle with normal systolic function. ?? 3. Moderate bi-atrial dilatation. ?? 4. Mild to moderate mitral regurgitation. ?? 5. Mild tricuspid regurgitation. ?? 6. Mildly elevated right sided pressures. RVSP is 44 mmHg. ?? 7. Moderately dilated aortic root. ?? 8. Cannot rule out the presence of an atrial septal defect. A transesophageal ?? echocardiogram is recommended for further evaluation. ? Adult Echocardiography Procedure Report ?? Left Ventricle ?? LVEDD (3.7 - 5.6 cm): ? 5.67 cm ?? LVESD (2.2 - 4.0 cm): ? 3.43 cm ?? LVIVS thickness (0.6 - 1.2 cm): ? 0.85 cm ?? LVPW thickness (0.5 - 1.0 cm): ? 1.01 cm ?? e': ? 0.09 m/s ?? E - e': ? 11.75 ?? LVOT Max Gradient: ? 2.09 mm[Hg] ?? LVOT Area (cm2): ? 0.72 m/s ?? Peak Velocity (LVOT): ? 0.72 m/s ?? Mean Velocity (LVOT): ? 0.50 m/s ?? LVOT Diameter ? 2.29 cm ?? Left Ventricular Ejection Fraction: ? 60 % ?? Left Atrium ?? LA Volume Index (2D A2C): ? 49.90 ml/m2 ?? Left Atrium Systolic Dimension: ? 4.66 cm ?? Mitral Valve ?? Mitral Valve E-Wave Peak Velocity: ? 1.02 m/s ?? Right Ventricle ?? RV Internal Diastolic Dimension: ? 5.06 cm ?? Aorta ?? AO Root Diam: ? 4.26 cm ?? Ascending Ao Diam: ? 3.20 cm ?? Aortic Valve ?? AoV Area (Peak Elan): ? 2.43 cm2, 2.39 cm2 ?? AoV Area (VTI): ? 2.42 cm2, 2.34 cm2 ?? Peak Velocity(Antegrade Flow): ? 1.24 m/s, 1.20 m/s ?? Peak Gradient(Antegrade Flow): ? 6.16 mm[Hg], 5.78 mm[Hg] ?? Mean Velocity(Antegrade Flow): ? 0.92 m/s, 0.89 m/s ?? Mean Gradient(Antegrade Flow): ? 3.76 mm[Hg], 3.50 mm[Hg] ?? Velocity Time Integral: ? 28.28 cm, 26.33 cm ?? Tricuspid Valve ?? Peak Velocity (Regurgitant Flow): ? 3.03 m/s, 2.67 m/s, 3.19 m/s ?? Pulmonic Valve ?? Mean Gradient: ? 1.61 mm[Hg], 1.59 mm[Hg] ?? Mean Velocity: ? 0.61 m/s, 0.57 m/s ?? Peak Velocity: ? 0.95 m/s, 0.91 m/s ?? Peak Gradient: ? 3.34 mm[Hg], 3.21 mm[Hg], 4.10 mm[Hg] ?? Right Atrium ?? Right Atrium Systolic Pressure: ? 90.19 ml, 90.19 ml ? Dictated by: Nicolette Harvey M.D. on 12/22/2023 at 15:10 ? Approved by: Nicolette Harvey M.D. on 12/22/2023 at 15:19 ? Dictated By: ?NICOLETTE HARVEY ? Signed By: ?12/22/230 ? DD/ 1519 ? TD/TT: ? Features Editor: Procedure Note Radiology, Radiologist, - 12/22/2023 [place] [address] Cardiology Report Signed Patient: VINAYAK MADRIGAL WMR#: [id number] : 1950Acct:[id number] Age/Sex: 73 / MADM Date: 12/20/23 Loc: CARD Attending Dr: Pantera Tomlin M.D. Ordering Physician: Pantera Tomlin M.D. Date of Service: 12/20/23 Procedure(s): CA echo doppler complete Accession Number(s): [id number] cc: ANTONY ZAMARRIPA ; Pantera Tomlin M.D. Patient Name: VINAYAK MADRIGAL MR#: [id number] : 1950 Exam Date: 12/20/2023 Ordering Doctor: PANTERA TOMLIN ECHOCARDIOGRAM REPORT PROCEDURE: CA ECHO DOPPLER COMPLETE INDICATIONS: Paroxysmal atrial fibrillation COMPARISON: None. DESCRIPTION: COMPLETE ECHOCARDIOGRAM Real-time transthoracic echocardiography with 2D, M-mode, spectral and color flow Dopplerperformed. QUALITY: Technical quality was good. BSA 2.2 LEFT VENTRICLE: Normal chamber size. Normal left ventricular wall thickness. Global left ventricular systolic function is normal. LV EF: Estimated left ventricular ejection fraction is 60%. DIASTOLIC: Not adequately assessed due to heart rhythm. ATRIAL SEPTUM: Probable left to right shunt by color dopplerevaluation. Further evaluation by an agitated saline study is suggested if clinically warranted. LEFT ATRIUM: Moderate dilatation. RIGHT ATRIUM: Moderate dilatation. RIGHT VENTRICLE: Moderate dilatation. Normal right ventricularsystolic function. TRICUSPID VALVE: Normal mobility and thickness. No stenosis with mild regurgitation. Mild pulmonary hypertension. RVSP 44 mmHg MITRAL VALVE: Normal mobility and thickness. No evidence of mitralvalve stenosis. There is no mitral annular calcification. Mild to moderatemitral regurgitation. AORTIC VALVE: Normal trileaflet appearance. No visible sclerosis.Normal leaflet mobility. No evidence of aortic valve [...] the presence of an atrial septal defect. Atransesophageal echocardiogram is recommended for further evaluation. Adult [...] 90.19 ml, 90.19 ml Dictated by: Nicolette Harvey M.D. on 12/22/2023 at 15:10 Approved by: Nicolette Harvey M.D. on 12/22/2023 at 15:19 Dictated By: NICOLETTE HARVEY Signed By:12/22/23 1520 DD/ 1519 TD/TT: Features Editor: Authorizing ProviderResult TypeResult StatusGeneric External Data Provider CLINISYNC IMAGINGFinal Result documented in this encounter Visit Diagnoses Not on filedocumented in this encounter Care Teams Team MemberRelationshipSpecialtyStart DateEnd Date Antony Zamarripa MD [address] [facility] [address] [place] [address] PCP - GeneralInternal Medicine03/13/23 Antony Zamarripa MD [address] [facility] [address] [place] [address] PCP - ACO Reach01/04/24 Juliann Wood DEVIKA [address] [place] [address] Social WorkerFamily Medicinedocumented as of this encounter
--- OUTSIDE RECORDS SUMMARY | 2025-09-17 05:27 | XMS_ITS | Clinical Summary ---
Author Organization [facility] Address [address] [facility], [address] [place] [address] Care Team Providers Care Credentialing Specialist Name Role Phone Antony Zamarripa MD Primary Care Provider Social History Tobacco UseTypesPacks/DayYears UsedDateSmoking Tobacco: Never AssessedSex and Gender InformationValueDate RecordedSex Assigned at BirthNot on fileLegal Sex Male12/15/2012 10:57 AM ESTGender IdentityNot on fileSexual OrientationNot on file Plan of Treatment DateTypeDepartmentCare Team (Latest Contact Info)Esbmtkpkuip69/30/2025 11:00 AM ESTOffice Visit [facility] [address] [place] [address] [address] [place] [address] [place] [address] [place] [address] [address] [place] [address] CHRISTIANO PT - SOBHealth MaintenanceDue DateLast DoneCommentsDepression Screen 1962Hepatitis C pziznx2408/03/1968DTaP/Tdap/Td vaccine (1 - Tdap)1969 Dflguc4408/03/19902241Twfbnngdlce65/29/1995Colorectal Cancer Gncelz5608/03/1995FIT/FOBT: Average risk1995Fecal-DNA (Cologuard): Average risk1995 Sigmoidoscopy/CT /29/1995Pneumococcal 50+ years Vaccine (1 of 1 - PCV)2000Shingles vaccine (1 of 2)09/29/2000Flu vaccine (#1)06/05/2025 COVID-19 Vaccine ( season)2025Respiratory Syncytial Virus (RSV) or age 60 yrs+ (1 - 1-dose 75+ series)2025Hepatitis A vaccineAged OutNo longer eligible based on patient's age to complete this topicHepatitis B vaccineAged OutNo longer eligible based on patient's age to complete this topic Hib vaccineAged OutNo longer eligible based on patient's age to complete this topicMeningococcal (ACWY) vaccineAged OutNo longer eligible based on patient's age to complete this topicMeningococcal B vaccineAged OutNo longer eligible based on patient's age to complete this topicPolio vaccineAged OutNo longer eligible based on patient's age to complete this topic Care Teams Team MemberRelationshipSpecialtyStart DateEnd Date Antony Zamarripa MD [address] [address] PCP - GeneralInternal Mhagimfi77/6/25
--- OUTSIDE RECORDS SUMMARY | 2025-09-17 05:27 | XMS_ITS | Encounter Summary ---
Author Organization [facility] Address [address] [place] [address] Care Team Providers Care Parcel Post Officer Name Role Phone Antony Zamarripa MD Primary Care Provider [phone] Encounter Details DateTypeDepartmentCare Team (Latest Contact Info)Dowqreqppud90/07/2025Telephone [facility] [address] [place] [address] Cleopatra Hatfield MA Social History Tobacco UseTypesPacks/DayYears UsedDateSmoking Tobacco: FormerCigarettes Smokeless Tobacco: NeverAlcohol UseStandard Drinks/WeekCommentsNot Currently0 (1 standard drink = 0.6 oz pure alcohol)UT Safety & EnvironmentAnswerDate Recorded Fear of Current or Ex-PartnerNot on file12/27/2023Emotionally AbusedNot on file 4Physically AbusedNot on file12/27/2023Sexually AbusedNot on file 4Physically or Sexually AbusedNot on file12/27/2023Sex and Gender InformationValueDate RecordedSex Assigned at ExjmmTqts87/09/2025 9:02 AM EDT Legal KttBghu8305/04/2022 12:07 AM EDTGender TimigswuZeds86/09/2025 9:02 AM EDT Sexual OrientationHeterosexual or Tuckomot77/09/2025 9:02 AM EDTdocumented as of this encounter Miscellaneous Notes * Telephone Encounter - Cleopatra Hatfield MA - 09/11/2025 4:42 PM EST MD Cleopatra Jung MA Aortic root dilatation appears to be stable on this echo, also the mitral regurgitation and pulmonary hypertension and the left ventricular function are also stable. Continue current management Spoke to patient to advise him of his Echo results per Dr. Cavazos;s request. Patient verbalized understanding. documented in this encounter Plan of Treatment Not on file documented as of this encounter Visit Diagnoses Not on filedocumented in this encounter Care Teams Team MemberRelationshipSpecialtyStart DateEnd Date Antony Zamarripa MD [address] [facility] [address] [place] [address] PCP - General12/04/22documented as of this encounter
--- OUTSIDE RECORDS SUMMARY | 2025-09-17 05:28 | XMS_ITS | Patient Health Record ---
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 Name Role Phone Antony Zamarripa MD Primary Care Provider Unavailab escobar AreliGigi Unavailable [phone] Allergies Allergen (clinical drug ingredient) Drug/Non Drug Allergy documented on EMR Reaction Allergy Type Onset Date Status PenicillinrashDrug AllergyActive Reason For Referral No Information Medications Medication SIG (Take, Route, Frequency, Duration) Notes Start Date End Date Status Folic Acid 1 MG Oral; Duration: 30 Days ActiveProlastin-C 1000 MG/20MLas directed IntravenousActiveAmantadine HCl 100 MG Oral; Duration: 90 DaysActiveSynjardy 12.5-1000 MGOral; Duration: 90 DaysActive Atorvastatin Calcium 40 MG1 tablet Orally Once a dayActiveCarvedilol 12.5 MG Oral; Duration: 90 DaysActiveCelecoxib 200 MGOral; Duration: 90 DaysActiveCVS Vitamin B-12 1000 MCGTAKE 1 TABLET BY MOUTH EVERY DAY Oral; Duration: 30 Days ActiveEliquis 5 MGOral; Duration: 90 DaysActiveAlbuterol Sulfate HFA 108 (90 Base) MCG/ACT 2 puffs as needed for SOB Inhalation every 4 hrs; Duration: 90 days Dispense #3 inhalers 5ActiveBreztri Aerosphere 160-9-4.8 MCG/ACT 2 puffs Inhalation BID; Duration: 90 days Rinse after use ; Dispense #3 inhalers 4ActiveGlimepiride 2 MGOral; Duration: 90 DaysActiveLotrel 10-20 MG Oral; Duration: 90 DaysActive Immunizations Vaccine Route Administration Date Status Comme nts Comirannabel Pfizer Syringe Pre -Filled 30 mcg/0.3 mL Unknown 10/13/2024 Administered Flu, Fluad (03197) 65 yrs + High Dose Seasonal (6807-9629)Ioblxxp4710/13/2024 AdministeredFlu, Fluad (51154) 65 yrs+, single-dose syringe (0753-0782)Unknown 4AdministeredPneumococcal (Pneumovax 23)Pefmcjp9306/27/2019Administered Pneumococcal (Prevnar 13)Rzooncw8007/16/20200400OkwwkcawgwmlRBIZ-TUR-1 (COVID 19 Pfizer 30mcg/0.3mL)Zteauif44/04/2021AdministeredZOSTER (SHINGLES) VACCINE (HZV) Osjzsnc97/09/2021Administered Social History Tobacco Use: Social History Observation Description Date Details (start date - stop date) Former Smoker NA - NA Tobacco Control (Standard) Question Answer Notes Tobacco use: Former smoker How long has it been since you last smoked?Greater than 10 yearsAdditional Findings: Tobacco qrj-ivnlMg-mccab cigarette smoker (20-30/day) Problems Problem Type SNOMED Code ICD Code Onset Dates Problem Status W/U Status Risk Notes Problem Laubu-4-gzyocrcgumi deficiency (01622929) Zojgo-1-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) ActiveconfirmedProblemCentrilobular emphysema (73726721)Centrilobular emphysema (J43.2)ActiveconfirmedProblemBronchiolectasis (48886529)Bronchiectasis, uncomplicated (J47.9)ActiveconfirmedProblemPulmonary fibrosis (13073819) Pulmonary fibrosis, unspecified (J84.10)ActiveconfirmedProblemObstructive sleep apnea syndrome (80795693)JESS (obstructive sleep apnea) (G47.33)Activeconfirmed ProblemDiabetes mellitus type 2 (disorder) (10025141)DM2 (diabetes mellitus, type 2) (E11.9)ActiveconfirmedProblemMultiple pulmonary nodules (071829404) Multiple pulmonary nodules (R91.8)ActiveconfirmedProblemAtrial fibrillation (61416899)PAF (paroxysmal atrial fibrillation) (I48.0)ActiveconfirmedProblemEx- tobacco user (finding) (254347374)History of tobacco abuse (Z87.891)Active vmbplfunpFnekttoRazmb-7-wrtwdnpisbn deficiency (67559494)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)Activeconfirmed Vital Signs Heart Rate 67 /min 05/19/2025 Cqfdrlrlvil85.0 degrees Zuwubcunnp91/15/2025Respiratory Rate18 /min05/19/2025 Wvqucxpo30 %05/19/2025lood pressure btoapohdk40 mm Hg05/19/20254860Uxdche96 in 05/19/2025lood pressure bcxiplht157 mm Hg05/19/20250210Srneap528.4 lbs05/19/2025MI 32.06 kg/m205/19/2025 Encounters Encounter Location Date Provider Diagnosis [facility] [place] [address] [place] [address] 10/20/2024 [facility] Centrilobular emphys lashawn J43.2 [facility] [place] [address] [place] [address] 11/24/2024 [facility] [address] [place] [address]/14/2025 [facility] [place] [address] 05/14/2025[facility] [address] [place] [address]/[facility] ; AAT (eumld-8-tvypjtjiiqi) deficiency E88.01 ; Pulmonary fibrosis, unspecified J84.10 ; Multiple pulmonary nodules R91.8 ; Bronchiectasis, uncomplicated J47.9 ; PAF (paroxysmal atrial fibrillation) I48.0 ; DM2 (diabetes mellitus, type 2) E11.9 ; JESS (obstructive sleepapnea) G47.33 and History of tobacco abuse Z87.891 [facility] [address] [place] [address]/15/[facility]25 [facility] ; AAT (zmqjf-6-rehywnsyhyx) deficiency E88.01 ; Pulmonary fibrosis, unspecified J84.10 ; Multiple pulmonary nodules R91.8 ; Bronchiectasis, uncomplicated J47.9 ; PAF (paroxysmal atrial fibrillation) I48.0 ; DM2 (diabetes mellitus, type 2) E11.9 ; JESS (obstructive sleepapnea) G47.33 and History of tobacco abuse Z87.891 Assessments Encounter Date Diagnosis (ICD Code) Assessment Notes Treatment Notes Treatment Clinical Notes Section Notes 12/10/2024 Centrilobular emphysema (ICD-10 - J43.2) Prior treatment: Breztri > Trelegy 100 > Stiolto Patient admits that Breztri has been even better than Trelegy. He reports no symptoms with Breztri use, and is not using any albuterol. He voiced he likes Breztri and wishes to remain on it. ContinueBreztri for now. Continue Prolastin therapy. 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 Discussed repeating PFT in May for a 1 year F/U to determine if Prolastin is having any benefit and also if any progression of fibrosis. He voiced agreement. 5Centrilobular emphysema (ICD-10 - J43.2) Prior treatment: Breztri > Trelegy 100 > Stiolto He is asymptomatic. Breztri is working well. 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 PFT was not done - will order at F/U visit at new office in ~3-4 months. 12/10/2024Pulmonary fibrosis, unspecified (ICD-10 - J84.10) As before: [...] that he is also on Prolastin therapy. 12/10/2024Multiple pulmonary nodules (ICD-10 - R91.8) As before: 3 month F/U chest CT from 02/07/2024, done on 05/12/2024, shows stability of the RUL nodularity (2 contiguous RUL nodules in a dumbbell orientation, total length 16mm) when compared to prior study 08/09/2023. 1 year follow-up chest CT will be due May 2025. 05/19/2025Pulmonary fibrosis, unspecified (ICD-10 - J84.10) As before: [...] with a 1 year follow-up chest CT. CT and PFT were not done. After discussing with patient, will plan on ordering testing at F/U visit. 05/19/2025Multiple pulmonary nodules (ICD-10 - R91.8) As before: 3 month F/U chest CT from 02/07/2024, done on 05/12/2024, shows stability of the RUL nodularity (2 contiguous RUL nodules in a dumbbell orientation, total length 16mm) when compared to prior study 08/09/2023. 1 year follow-up chest CT will be due May 2025. CT not done - ordering at F/U visit. 12/10/2024ronchiectasis, uncomplicated (ICD-10 - J47.9) Mild traction bronchiectasis secondary to pulmonary fibrosis. Asymptomatic at this time. 12/10/2024PAF (paroxysmal atrial fibrillation) (ICD-10 - I48.0) s/p ablation 03/13/2024. Remains in NSR. Off amiodarone. 5Bronchiectasis, uncomplicated (ICD-10 - J47.9) Mild traction bronchiectasis secondary to pulmonary fibrosis. Asymptomatic at this time. 05/19/2025PAF (paroxysmal atrial fibrillation) (ICD-10 - I48.0) s/p ablation 03/13/2024. Remains in NSR. Off amiodarone. 12/10/2024DM2 (diabetes mellitus, type 2) (ICD-10 - E11.9) Steroids prescribed for this patient's underlying pulmonary disease can adversely affect blood glucose levels, inducing hyperglycemia and worsening underlying diabetes. The patient is encouraged to follow up with the primary care provider to create a plan to manage diabetes in this situation. 12/10/2024OSA (obstructive sleep apnea) (ICD-10 - G47.33) Managed by Dr. Copeland. 05/19/2025DM2 (diabetes mellitus, type 2) (ICD-10 - E11.9) Steroids prescribed for this patient's underlying pulmonary disease can adversely affect blood glucose levels, inducing hyperglycemia and worsening underlying diabetes. The patient is encouraged to follow up with the primary care provider to create a plan to manage diabetes in this situation. 05/19/2025OSA (obstructive sleep apnea) (ICD-10 - G47.33) Managed by Dr. Copeland. 12/10/2024History of tobacco abuse (ICD-10 - Z87.891) 1ppd x 30 years, quit 2000. Does not meet current LDCT criteria (>15 years since smoking cessation). 05/19/2025History of tobacco abuse (ICD-10 - Z87.891) 1ppd x 30 years, quit 2000. Does not meet current LDCT criteria (>15 years since smoking cessation). Plan Of Treatment No Information Insurance Providers Payer Name Payer Address Payer Phone Subscriber Number Group Number Insured Name Patient Relationship to Insured Coverage Start Date Coverage End Date [place] [address] [place] [address] [id number] Avril Madrigalelf - patient is the [id number] [employer] [facility] [address] [place] [id number], JanSelf - patient is the insured Medical (General) History Medical History History ICD Code Centrilobular emphysema J43.2 AAT (vztvr-0-unggacvtuul) deficiency E88 .01 Multiple pulmonary nodules R91.8 DM2 (diabetes mellitus, type 2) E11.9 JESS (obstructive sleep apnea) G47.33 HTN (hypertension) I10 HLD (hyperlipidemia) E78.5 PAF (paroxysmal atrial fibrillation) I48 .0 Nasal polyps J33.9 History of tobacco abuse Z87.891 Surgical History Surgery Date(Month/Year) sinus surgery vasectomyappendectomybursectomy
--- NOTE | 2025-09-17 05:33 | ED.GENADUL1 ---
HPI HPI - General Adult General Chief complaint: Extremity Problem, Nontraumatic Stated complaint: MUSCLE SPASM Time Seen by Provider: 09/17/25 05:15 Source: patient and family Mode of arrival: Wheelchair Limitations: no limitations History of Present Illness HPI narrative: This 75-year-old male who is being evaluated by his family physician and has been referred to neurology for concerns of Parkinson's disease is brought to the emergency department by his for evaluation of uncontrollable shaking movements of the left upper extremity. The symptoms started yesterday and have increased in frequency and duration since that time. The patient had an episode while I was examining him where his left upper extremity started shaking uncontrollably-in 3 episodes while his was driving him to the emergency department. Was recently when it occurs that is causing some degree of forceful flexion and extension of his head/neck. He does not lose consciousness during this time. He is able to speak but is not able to keep himself sitting up. The states that afterwards he is very unsteady on his feet for several minutes but then returns to normal. He has had cogwheeling of his upper extremities for about a year which is why he is being evaluated for Parkinson's disease. He has not had any recent falls but his states that she has had to catch him several times. The patient complains that when he gets these he feels discomfort across his upper back. He then feels weak and cannot use his left hand initially. He does not have any chest pain or shortness of breath. He did recently have a cardiac ablation. He has a history of atrial fibrillation. He has not had any recent injury. He does not lose consciousness during his episodes and has not been incontinent of urine or bit his tongue. Related Data Home Medications ?Medication ?Instructions ?Recorded ?Confirmed alpha-1 proteinase inhib.(hum) 6,000 mg IV .weekly 08/18/24 09/17/25 1,000 mg (+/-)/20 mL IV solution (Prolastin-C) amantadine HCl 100 mg tablet 100 mg PO BID 08/18/24 09/17/25 apixaban 5 mg tablet (Eliquis) 5 mg PO Q12H 08/18/24 09/17/25 atorvastatin 40 mg tablet 40 mg PO DAILY 08/18/24 09/17/25 carvedilol 12.5 mg tablet 12.5 mg PO Q12H 08/18/24 09/17/25 celecoxib 200 mg capsule 200 mg PO Q24H 08/18/24 09/17/25 cyanocobalamin (vitamin B-12) 1,000 mcg PO DAILY 08/18/24 05/27/25 1,000 mcg capsule fluticasone fur. 100 mcg-umeclid 1 inh inhalation DAILY 08/18/24 05/27/25 62.5 mcg-vilant 25 mcg inhalat.powder (Trelegy Ellipta) folic acid 1 mg tablet 1 mg PO DAILY 08/18/24 09/17/25 glimepiride 2 mg tablet 1 mg PO DAILY 08/18/24 09/17/25 sitagliptin phosphate 50 mg tablet 50 mg PO DAILY 08/18/24 09/17/25 (Januvia) albuterol sulfate 90 mcg/actuation inhalation 09/17/25 aerosol inhaler amlodipine 5 mg tablet mg 09/17/25 benazepril 40 mg tablet mg 09/17/25 empagliflozin 12.5 mg-metformin tab 09/17/25 1,000 mg tablet (Synjardy) Allergies Allergy/AdvReac Type Severity Reaction Status Date / Time Penicillins Allergy Unknown Swelling Verified 09/17/25 05:22 of Lip/Tongue/Throat Review of Systems ROS Status of ROS 10 or more systems reviewed and unremarkable except as noted in history and below PFSH PFSH Social History Little interest or pleasure in doing things: not at all Feeling down, depressed, or hopeless: not at all Exam Narrative Exam Narrative: Vital signs and Nursing Notes reviewed: General: Awake, alert, oriented, no acute distress, lying comfortably on the stretcher-notable cogwheeling of right hand while the patient is resting on the bed HEENT: Normocephalic atraumatic, mucous membranes are dry, no facial droop noted Chest: Lungs are clear to auscultation with good air entry, there is no wheezing rhonchi or rales appreciated no accessory muscle use, patient is speaking in complete sentences-no chest wall tenderness to palpation CVS: Regular rate and rhythm S1-S2, no murmurs rubs or gallops, pulses are brisk and equal bilaterally ABD: Soft, nondistended, nontender, no rebound guarding or rigidity, bowel sounds are normal, no pulsatile masses appreciated Extremities: Patient has a resting tremor of the right upper extremity that is notable while at rest, there is no notable deformity of the upper or lower extremities, booster pump oiler strength is intact, during the exam the patient had an episode of uncontrollable movement of the left upper extremity in which his arm was shaking and he was attempting to hold it down in place with the right arm, notable spasm of pectoralis muscle- this lasted approximately 30 seconds then resolved and afterwards the patient was unable to make a tight fist or roller picker a glass of water Skin: Normal in appearance without rash,pallor, petechiae or purpura Neuro: No focal deficits; speech is clear, no facial droop, booster pump oiler strength is intact unless the patient recently had an episode of shaking of the left upper extremity, lower extremity strength and sensation is intact cognition is intact Constitutional Vital Signs, click to edit/add: Last Vital Signs Temp 98.5 F 09/17/25 05:22 Pulse 79 09/17/25 06:40 Resp 8 L 09/17/25 06:40 BP 145/77 H 09/17/25 06:34 Pulse Ox 94 L 09/17/25 06:40 O2 Del Method Room Air 09/17/25 05:22 Course Vital Signs Vital signs: Vital Signs Blood Pressure 176/85 H 09/17/25 05:17 Temperature 98.5 F 09/17/25 05:22 Pulse Rate 79 09/17/25 06:40 Respiratory Rate 8 L 09/17/25 06:40 Blood Pressure 145/77 H 09/17/25 06:34 Pulse Oximetry 94 L 09/17/25 06:40 Oxygen Delivery Method Room Air 09/17/25 05:22 Medical Decision Making MDM Narrative Medical decision making narrative: 75-year-old male is brought to the emergency department by his who is concerned. Since yesterday he has been having episodes of uncontrolled movements of his left upper extremity in which his left arm starts shaking uncontrollably with spasm in the pectoralis muscle and spasms across the muscles of his upper back. He had an episode while I was evaluating him and an additional episode while he was being taken to CAT scan. The symptoms started yesterday morning and have increased in intensity and frequency since that time. The patient's states he almost fell twice yesterday. The day before he was not feeling well in general but could not articulate what was wrong except that his mouth was really dry. CT scan of the brain was ordered as well as routine labs. Noncontrast CT scan of the brain is negative for acute findings. Routine labs are reviewed. The patient has a normal white count and stable hemoglobin. His sodium is low at 130, potassium is 4.6, chloride is 93, CO2 is 24, BUN is 21 and creatinine is 1.9, glucose is 832. Liver function tests are normal. Anion gap is 16.9. Acetone and troponin as well as an EKG was added on due to the elevated glucose. Corrected sodium for the glucose is 142-148. Acetone is negative. Lactic acid is elevated at 3.5. Troponin is normal. The patient was given IV fluids and 10 units of IV insulin as well as 5 mg of IV Valium for the spasms/focal seizures that he is experiencing in the left upper extremity. EKG is a sinus rhythm at 80 bpm with a left axis deviation but otherwise no acute changes Case was discussed with Dr. Kelly and the patient is accepted for admission, [facility], he request that the patient received 15 units of Lantus subcu insulin. Lab Data Lab results reviewed: Yes I reviewed the patient's lab results Labs: Lab Results 09/17/25 09/17/25 Range/Units 05:40 06:31 WBC 7.4 (4.0-11.0) 10^3/uL RBC 5.17 (4.70-6.10) 10^6/uL Hgb 15.9 (14.0-18.0) g/dL Hct 46.3 (42.0-54.0) % MCV 89.6 (80.0-94.0) fL MCH 30.8 (25.9-34.0) pg MCHC 34.3 (29.9-35.2) g/dL RDW 12.6 (11.0-15.0) % Plt Count 223 (150-450) 10^3/uL MPV 10.3 (9.5-13.5) fL Neut % (Auto) 71.3 (43.0-75.0) % Lymph % (Auto) 16.2 L (20.5-60.0) % [place] % (Auto) 9.4 (1.7-12.0) % Eos % (Auto) 2.3 (0.9-7.0) % Baso % (Auto) 0.7 (0.2-2.0) % Neut # (Auto) 5.3 (1.4-6.5) 10^3/uL Lymph # (Auto) 1.2 (1.2-3.8) 10^3/uL [place] # (Auto) 0.7 (0.3-0.8) 10^3/uL Eos # (Auto) 0.2 (0.0-0.7) 10^3/uL Baso # (Auto) 0.1 (0.0-0.1) 10^3/uL Abs Immat Gran (auto) 0.01 (0.00-0.03) 10^3/uL Imm/Tot Granulo (auto) 0.1 (0.0-0.5) % Sodium 130 L (136-145) mmol/L Potassium 4.6 (3.5-5.1) mmol/L Chloride 93 L (98-107) mmol/L Carbon Dioxide 24.7 (21.0-32.0) mmol/L Anion Gap 16.9 BUN 21.0 H (7.0-18.0) mg/dL Creatinine 1.90 H (0.70-1.30) mg/dL Est GFR ( Amer) 42 L (>=60 mL/min/1.73m^2) Est GFR (Non-Af Amer) 35 L (>=60 mL/min/1.73m^2) BUN/Creatinine Ratio 11.1 Glucose 832 H* (74-106) mg/dL Lactate 3.5 H* (0.4-2.0) mmol/L Calcium 9.6 (8.5-10.1) mg/dL Total Bilirubin 0.6 (0.2-1.0) mg/dL AST 7 L (15-37) U/L ALT 25 (16-63) U/L Alkaline Phosphatase 152 H (46-116) U/L Troponin I High Sens 8.7 (4.0-76.1) pg/mL Total Protein 7.8 (6.4-8.2) g/dL Albumin 4.0 (3.4-5.0) g/dL Globulin 3.8 g/dL Albumin/Globulin Ratio 1.1 Urine Color Lt. yellow (YELLOW) Urine Clarity Clear (CLEAR) Urine pH 5.5 (5.0-9.0) Ur Specific [place] 1.010 (1.005-1.025) Urine Protein Negative (NEG/TRACE) mg/dL Urine Glucose (UA) >=1000 A (NEGATIVE) mg/dL Urine Ketones 15 A (NEGATIVE) mg/dL Urine Occult Blood Negative (NEGATIVE) Urine Nitrite Negative (NEGATIVE) Urine Bilirubin Negative (NEGATIVE) Urine Urobilinogen 0.2 (0.2-1.0) EU/dL Ur Leukocyte Esterase Negative (NEGATIVE) Urine RBC None seen (0-2) #/HPF Urine WBC None seen (NONE SEEN) #/HPF Ur Squamous Epith Cells None seen (NONE/RARE) #/LPF Urine Crystals None seen (None Seen) #/HPF Urine Bacteria Trace A (NONE SEEN) #/HPF Urine Casts None seen (NONE SEEN) #/LPF Urine Mucus None seen (NONE SEEN) Acetone, Qual Negative (NEGATIVE) ECG Data Attestation: I personally reviewed and interpreted this ECG as follows: (EKG sinus rhythm 81 bpm, left axis deviation, no acute ST segment elevation or T wave inversion) Discharge Plan Discharge Patient Disposition: Still a Patient
[2025-09-17 05:48] LABS: Hematocrit 46.3 % (42.0-54.0); Hemoglobin 15.9 g/dL (14.0-18.0); Immature Granulocytes Abs Auto 0.01 10^3/uL (0.00-0.03); Immature Granulocytes Pct Auto 0.1 % (0.0-0.5); Lymphocytes Absolute Auto 1.2 10^3/uL (1.2-3.8); Mean Corpuscular HGB Conc 34.3 g/dL (29.9-35.2); Mean Corpuscular Hemoglobin 30.8 pg (25.9-34.0); Mean Corpuscular Volume 89.6 fL (80.0-94.0); Platelet Count 223 10^3/uL (150-450); Red Blood Count 5.17 10^6/uL (4.70-6.10); White Blood Count 7.4 10^3/uL (4.0-11.0)
[2025-09-17] MEDS: DIAZEPAM 10 MG/2 ML SYRINGE 5 MG IV (05:55)
[2025-09-17] MEDS: 0.9 % SODIUM CHLORIDE 500 ML IV (05:55)
[2025-09-17 06:04] LABS: Alanine Aminotransferase 25 U/L (16-63); Albumin Globulin Ratio 1.1; Albumin Level 4.0 g/dL (3.4-5.0); Alkaline Phosphatase 152 U/L (46-116); Anion Gap 16.9; Aspartate Amino Transferase 7 U/L (15-37); Blood Urea Nitrogen 21.0 mg/dL (7.0-18.0); Calcium 9.6 mg/dL (8.5-10.1); Carbon Dioxide 24.7 mmol/L (21.0-32.0); Chloride 93 mmol/L (98-107); Estimated GFR (African America 42 (>=60 mL/min/1.73m^2); Estimated GFR (Non-African Ame 35 (>=60 mL/min/1.73m^2); Globulin 3.8 g/dL; Potassium 4.6 mmol/L (3.5-5.1); Sodium 130 mmol/L (136-145); Total Protein 7.8 g/dL (6.4-8.2)
[2025-09-17 06:07] LABS: Glucose 832 mg/dL (74-106); Lactate/Lactic Acid 3.5 mmol/L (0.4-2.0)
--- NOTE | 2025-09-17 06:25 | ECG_ITS ---
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 Measurements Intervals [place] Rate: 81 P: 60 OK: 192 QRS: -35 QRSD: 106 T: 45 QT: 402 QTc: 439 Interpretive Statements 1100 Sinus rhythm 3624 Possible inferior myocardial infarction, age undetermined 7200 Abnormal left axis deviation 9150 abnormal ECG Compared to ECG 04/25/2018 11:01:38 Myocardial infarct finding now present Left-axis deviation now present Sinus bradycardia no longer present Electronically Signed On 09-17-2025 18:37:31 EST by NICOLETTE VALDEZ M.D.
[2025-09-17] MEDS: INSULIN REGULAR, HUMAN (100 UNIT/ML) 10 ML MDV 10 UNIT IV (06:47)
[2025-09-17 06:51] LABS: Glucose Urine UA >=1000 mg/dL (NEGATIVE)
[2025-09-17] MEDS: 0.9 % SODIUM CHLORIDE 1,000 ML 1000 ML IV (06:56)
[2025-09-17 06:58] LABS: Cast Seen? NONE SEEN #/LPF (NONE SEEN); Crystals Seen? None Seen #/HPF (None Seen)
[2025-09-17] MEDS: INSULIN GLARGINE 300 UNIT/3 ML INSULN.PEN 15 UNIT SQ (07:31)
[2025-09-17 08:04] LABS: Anion Gap 14.7; Blood Urea Nitrogen 20.0 mg/dL (7.0-18.0); Calcium 9.2 mg/dL (8.5-10.1); Carbon Dioxide 25.6 mmol/L (21.0-32.0); Chloride 98 mmol/L (98-107); Estimated GFR (African America 46 (>=60 mL/min/1.73m^2); Estimated GFR (Non-African Ame 38 (>=60 mL/min/1.73m^2); Potassium 4.3 mmol/L (3.5-5.1); Sodium 134 mmol/L (136-145)
[2025-09-17 08:10] LABS: Glucose 601 mg/dL (74-106)
--- OUTSIDE RECORDS SUMMARY | 2025-09-17 08:25 | XMS_ITS | CCD ---
Author Organization [facility] Care Team Providers Care It Training Specialist Name Role Phone PHYSICIAN, DEFAULT Unavailable Unavailable PHYSICIAN, DEFAULT Unavailable Unavailable PHYSICIAN, DEFAULT Unavailable Unavailable PHYSICIAN, DEFAULT Unavailable Unavailable BELÉN CORRALES Admitting Unavailable BELÉN CORRALES Attending Unavailable VICK, DR FELICIANO Primary Care Unavailable JARROD, DR MODE Souza Consulting Unavailable BELÉN CORRALES Consulting Unavailable SUZANNA RAMON Admitting Unavailable RAMON BRISENO Attending Unavailable VICK, DR FELICIANO Primary Care Unavailable PHOENIX, DR LUIS MANUEL Urbina Consulting Unavailable RAMON BRISENO Consulting Unavailable Antony Zamarripa MD Primary Care Provider Antony Zamarripa MD Unavailable [phone] ANTONY ZAMARRIPA Primary Care Physician [phone] Al-Marrawi, Mhd Yaser Attending Unavailabl e Al-Marrawi, [...] Facility (9 sources)Penicillins; Translations: [penicillins]Drug allergy (disorder) 57-46-5487Pihzxtob of skin (disorder)[facility] (20 sources)Penicillin GDrug Rbnepmc77-83-3563NacamqhSentara RMH [facility] Center Medications Current Medications MedicationDrug Class(es)DatesSig (Normalized)Sig (Original)[id number] 200 actuat albuterol 0.09 mg/actuat metered dose inhaler (3 sources)beta2-Adrenergic AgonistStart: 61-70-2024ldfj 2 puff(s) by inhalation every six hoursalbuterol HFA 90 mcg/act inhaler Inhale 2 puffs every 6 (six) hours if needed 05/19/2025 ActiveAlpha1-Proteinase Inhibitor (PROLASTIN IV) (7 sources)Alpha1-Proteinase Inhibitor (PROLASTIN IV) Infuse into a venous catheter every 7 (seven) days Per dr baer Activeamantadine hydrochloride 100 mg oral tablet (20 sources)Influenza A M2 Protein InhibitorStart: 04-08-2024 End: 31-03-3162wfbkexgols (Symmetrel) 100 MG tablet Indications: Memory loss , Tremor , Parkinsonism, unspecified Parkinsonism type (HCC) Take 1 tablet (100 mg) by mouth in the morning and 1 tablet (100 mg) before bedtime. 1 po daily for 1 week then can increase to bid. 60 tablet 11 08/14/2024 08/14/2025 Active amLODIPine 5 mg oral tablet (20 sources)Dihydropyridine Calcium Channel BlockerStart: 07-31-2024 End: 43-13-4811zicp 1 tablet by mouth in the morningamLODIPine (Norvasc) 5 MG tablet Take 5 mg by mouth in the morning. 07/31/2024 Activeapixaban 5 mg oral tablet (20 sources)Factor Xa InhibitorStart: 89-74-5194anpztmyk (Eliquis) 5 MG tablet Indications: Paroxysmal atrial fibrillation (HCC) TAKE 1 TABLET TWICE A DAY 200 tablet 3 04/30/2025 ActiveStart: 95-52-8226shmfnoab (Eliquis) 5 MG tablet Indications: Paroxysmal atrial fibrillation (CMS/HCC) TAKE 1 TABLET TWICE A DAY 200 tablet 3 01/14/2024 Activeatorvastatin 40 mg oral tablet (20 sources)HMG-CoA Reductase InhibitorStart: 06-77-0824uxig 1 tablet by mouth once dailyatorvastatin 40 mg Tab 40 mg = 1 tab(s), Oral, Daily, # 30 tab(s), Refills(s) 0 Start Date: 09/22/24 Status: Orderedbenazepril hydrochloride 40 mg oral tablet (20 sources)Angiotensin Converting Enzyme InhibitorStart: 07-31-2024 End: 43-40-7956nzrt 1 tablet by mouth in the morningbenazepril (Lotensin) 40 MG tablet Take 40 mg by mouth in the morning. 07/31/2024 ActiveBreztri Aerosphere (2 sources)Start: 79-42-7126Zjudzie Aerosphere 2 inh, BID, Refill(s) 0 Start Date: 09/24/24 Status: Bsztdea832 actuat budesonide 0.16 mg/actuat / formoterol fumarate 0.0048 mg/actuat / glycopyrrolate 0.009 mg/actuat metered dose inhaler (13 sources)Corticosteroid, beta2-Adrenergic AgonistStart: 09-09-2024 Tmvrkaq-Sixrtohmkdn-Uifzjxmqyn (Breztri Aerosphere) 160-9-4.8 MCG/ACT aerosol Inhale 2 puffs every 12 (twelve) hours 09/09/2024 Activecarvedilol 12.5 mg oral tablet (20 sources)alpha-Adrenergic Gabriella, beta-Adrenergic BlockerStart: 09-22-2024 take 1 tablet by mouth twice dailycarvedilol 12.5 mg Tab 12.5 mg = 1 tab(s), Oral, BID, # 60 tab(s), Refills(s) 0 Start Date: 09/22/24 Status: OrderedStart: 01-14-2024 End: 15-26-4154ywzbjinzij (Coreg) 12.5 MG tablet Indications: Benign essential hypertension (CMS/HCC) TAKE 1 TABLET TWICE A DAY 200 tablet 3 01/14/2024 08/07/2024 Discontinued (Dose adjustment)take 1 tablet by mouth in the morning carvedilol (Coreg) 6.25 MG tablet Take 6.25 mg by mouth in the morning and 6.25 mg in the evening. Take with meals. Activecelecoxib 200 mg oral capsule (20 sources)Nonsteroidal Anti-inflammatory DrugStart: 08-01-2023 End: 39-05-5684adtv 1 capsule by mouth once dailycelecoxib (CeleBREX) 200 MG capsule Indications: Displacement of cervical intervertebral disc Take 1 capsule (200 mg) by mouth Daily 90 capsule 3 08/11/2024 08/11/2025 Activeempagliflozin 12.5 mg / metFORMIN hydrochloride 1000 mg oral tablet (20 sources)Biguanide, Sodium-Glucose Cotransporter 2 InhibitorStart: 08-01-2023 End: 78-03-6713pakt 1 tablet by mouth in the morningempagliflozin-metFORMIN (Synjardy) 12.5-1000 MG Indications: Type 2 diabetes mellitus with hyperglyc emia, without long-term current use of insulin (HCC) Take 1 tablet by mouth in the morning and 1 tablet in the evening. Take with meals. 180 tablet 3 11/12/2024 07/27/2025 Discontinuedfolic acid 1 mg oral tablet (20 sources)Start: 06-19-2024 End: 45-38-2819lhdf 1 tablet by mouth once dailyfolic acid (Folvite) 1 MG tablet Indications: B12 deficiency , Folic acid deficiency Take 1 tablet (1,000 mcg) by mouth Daily 90 tablet 1 08/14/2024 Activeglimepiride 2 mg oral tablet (20 sources)SulfonylureaStart: 08-01-2023 End: 61-12-1101cqpmoozzeqo (Amaryl) 2 MG tablet Indications: Type 2 [...] hydrochloride 200 mg oral tablet (4 sources)Start: 04-12-3441Cjryxqpm 200 mg Tab 200 mg = 1 tab(s), Oral, As Directed Start Date: 05/03/19 Status: OrderedProlastin-C (2 sources)Start: 01-45-6134Tjbkenddw-C qWeek, Refills(s) 0 Start Date: 09/24/24 Status: OrderedSITagliptin 50 mg oral tablet (20 sources)Dipeptidyl Peptidase 4 InhibitorStart: 61-11-6467ojuz 1 tablet by mouth in the morningSITagliptin (Januvia) 50 MG tablet Indications: Uncontrolled type 2 diabetes mellitus with hyperglycemia (HCC) Take 1 tablet (50 mg) by mouth in the morning and 1 tablet (50 mg) before bedtime. 200 tablet 3 09/11/2024 ActiveStart: 08-06-2024 End: 46-89-2389jnko 1 tablet by mouth once dailySITagliptin (Januvia) 50 MG tablet Indications: Uncontrolled type 2 diabetes mellitus with hyperglycemia (CMS/HCC) Take 1 tablet (50 mg) by mouth Daily 90 tablet 3 08/11/2024 09/11/2024 Discontinued (Reorder)Start: 52-66-5423watq 1 tablet by mouth once daily SITagliptin (Januvia) 50 MG tablet Indications: Uncontrolled type 2 diabetes mellitus with hyperglycemia (CMS/HCC) Take 1 tablet (50 mg) by mouth Daily 90 tablet 02/20/2024 Active Completed/Discontinued Medications MedicationDrug Class(es)DatesSig (Normalized)Sig (Original)amiodarone hydrochloride 200 mg oral tablet (8 sources)AntiarrhythmicStart: 09-11-2023 End: 61-49-2782ofws 1 tablet by mouth in the morningamiodarone (Pacerone) 200 MG tablet Take 1 tablet by mouth in the morning and 1 tablet before bedtime. 09/11/2023 08/07/2024 DiscontinuedamLODIPine 10 mg / benazepril hydrochloride 20 mg oral capsule (8 sources)Dihydropyridine Calcium Channel Gabriella, Angiotensin Converting Enzyme InhibitorStart: 08-01-2023 End: 24-57-8955Skosrz 10-20 MG capsule Indications: Benign essential hypertension (CMS/HCC) TAKE 1 CAPSULE DAILY 90 capsule 3 08/01/2023 08/07/2024 Discontinuedfluticasone propionate 0.05 mg/actuat metered dose nasal spray (14 sources)CorticosteroidStart: 07-26-2022 End: 59-72-9778vuio 1 spray(s) nasal route in the morningfluticasone (Flonase) 50 MCG/ACT nasal spray Administer 1 spray into each nostril in the morning and 1 spray before bedtime. 07/26/2022 09/16/2024 Discontinued (Med list cleanup)30 actuat fluticasone furoate 0.1 mg/actuat / umeclidinium 0.0625 mg/actuat / vilanterol 0.025 mg/actuat dry powder inhaler (5 sources)Anticholinergic, Corticosteroid, beta2-Adrenergic AgonistStart: 07-30-2024 End: 80-26-6219qqtd 1 puff(s) by inhalation once daily Vgvlxbgscxj-Htbbkyije-Hepsze (Trelegy Ellipta) 100-62.5-25 MCG/ACT aerosol powder Inhale 1 puff Daily 07/30/2024 09/11/2024 Discontinuedvitamin b12 1 mg oral capsule (8 sources)Vitamin H59Eoujg: 06-19-2024 End: 52-48-2613ziiu 1 capsule by mouth once dailyCyanocobalamin 1000 MCG capsule Indications: B12 deficiency , Folic acid deficiency Take 1,000 mg by mouth Daily 30 capsule 2 06/19/2024 08/07/2024 Discontinued Problems Active Problems Problem ClassificationProblemDateDocumented DateEpisodic/ChronicAcquired foot deformities (6 sources)Left foot drop; Translations: [Foot drop, left foot]09-16-2024 EpisodicAortic; peripheral; and visceral artery aneurysms (20 sources)Abdominal aortic aneurysm, without rupture; Translations: [Abdominal aortic aneurysm without rupture]Onset: 81-32-2759ItccuqvKvvfvhq dysrhythmias (20 sources)Cardiac arrhythmia; Translations: [Cardiac arrhythmia, unspecified] Onset: 489529-94-6524LculysoNazvrch kidney disease (4 sources)Chronic kidney disease stage 3A ; Translations: [Chronic kidney disease, stage 3a (HCC) (CMS/HCC)]95-06-6850NblidxmOmhergy obstructive pulmonary disease and bronchiectasis (20 sources)Pulmonary emphysema in alpha-1 PI deficiency; Translations: [Other emphysema]Onset: 950270-22-9787QwfkgmcZjvdexfj mellitus with complications (20 sources)Peripheral neuropathy due to type 2 diabetes mellitus; Translations: [Type 2 diabetes mellitus withdiabetic polyneuropathy]Onset: 07-25-2023 73-73-8611WehknpcZagajsmky of lipid metabolism (20 sources)Pure hypercholesterolemia; Translations: [Pure hypercholesterolemia, unspecified]Onset: 04-09-2020 Resolved: 333766-49-4940FqaqswgZxftdwuxe hypertension (20 sources)Benign essential hypertension; Translations: [Essential (primary) hypertension]Onset: 705040-36-5807LmtbafrAraqv valve disorders (2 sources)Nonrheumatic mitral (valve) insufficiency; Translations: [Nonrheumatic mitral (valve) insufficiency]Onset: 93-08-0073EpjtdwbIpkmlkpmfxn of prostate (20 sources)Benign prostatic hypertrophy without outflow obstruction; Translations: [Benign prostatic hyperplasia without lower urinary tract symptoms]Onset: 196847-36-7524NzggqtbXutxkglgwzyx with complications and secondary hypertension (20 sources)Hypertensive heart disease; Translations: [Hypertensive heart disease without heart failure]Onset: 723639-27-1909AgfwklmMrqrdbxv disorders (1 source)Common variable agammaglobulinemia; Translations: [Nonfamilial hypogammaglobulinemia]Onset: 47-45-7326IojjkpoDbhvb and ill-defined heart disease (20 sources)Diastolic dysfunction; Translations: [Other ill-defined heart diseases]Onset: 751476-76-9490FbzjlbjStvju and ill-defined heart disease (20 sources)Left ventricular hypertrophy; Translations: [Cardiomegaly]Onset: 375873-10-9070OwcqvloHlodh and ill-defined heart disease (20 sources)Cardiomegaly; Translations: [Cardiomegaly]Onset: 06-26-2018 21-07-5564NvcelsjQsxrs hereditary and degenerative nervous system conditions (4 sources)Essential tremor; Translations: [Essential tremor]43-06-1941Ohcrdft Other nervous system disorders (1 source)Polyneuropathy; Translations: [Polyneuropathy, unspecified]Onset: 26-05-7700ArjkwarIdtuq nervous system disorders (7 sources)Tremor; Translations: [Tremor, unspecified]75-30-4949CmlgewkjOyymw nervous system disorders (6 sources)Numbness and tingling sensation of skin; Translations: [Anesthesia of skin]01-50-2531TdsdgfufCskbm nervous system disorders (2 sources)Impairment of balance; Translations: [Other abnormalities of gait and mobility]30-15-3642GwsfpbqgGjzco nutritional; endocrine; and metabolic disorders (20 sources)Body mass index 30+ - obesity; Translations: [Obesity, unspecified] Onset: 905708-96-6229VvoefrhEimil nutritional; endocrine; and metabolic disorders (20 sources)Mdwzy-2-izpeigoahor deficiency; Translations: [Gzvul-3-ruftidaeywt deficiency]Onset: 153812-08-4010LrkldidHmokh screening for suspected conditions (not mental disorders or infectious disease) (20 sources)CT of chest abnormal; Translations: [Abnormal findings on diagnostic imaging of other specified body structures]Onset: hronic Other screening for suspected conditions (not mental disorders or infectious disease) (8 sources)Patient encounter status; Translations: [Encounter for screening for malignant neoplasm of prostate]06-18-9309ZpgfthewIhmsw upper respiratory disease (20 sources)Allergic rhinitis; Translations: [Other allergic rhinitis]Onset: 472464-34-2199UppxxgtUdack upper respiratory infections (20 sources)Chronic pansinusitis; Translations: [Chronic pansinusitis]Onset: 759899-00-6674ZdtkvovVjjkjivj codes; unclassified (20 sources)Obstructive sleep apnea syndrome; Translations: [Obstructive sleep apnea (adult) (pediatric)]Onset: 564141-21-2801XtkguqyIskkmbdu codes; unclassified (20 sources)Hypersomnia disorder related to a known organic factor; Translations: [Hypersomnia due to medical condition]Onset: ChronicResidual codes; unclassified (20 sources)Hypersomnia; Translations: [Hypersomnia, unspecified]Onset: 572529-89-3249WyhojwdUlezbnwh codes; unclassified (13 sources)Amnesia; Translations: [Other amnesia]66-45-3081PkkwalccDmusupuamce; intervertebral disc disorders; other back problems (20 sources)Cervical spondylosis; Translations: [Spondylosis without myelopathy or radiculopathy, cervical region]Onset: 056744-53-1197XdrugloApbwskhakcuq (9 sources)Parkinsonism; Translations: [Parkinsonism, unspecified Parkinsonism type (CMS/HCC)]26-48-5572NrvbslaPuhzhlizfvkv (3 sources)ABDOMINAL AA W/O RUPTURE UNSPCIFIED; Translations: [ABDOMINAL AA W/O RUPTURE UNSPCIFIED]Onset: 76-45-4812Sarlzjslarry (4 sources)Finding of sensation of aonloiu59-67-5874Misqlsnjjfpz (1 source)Abdominal aortic aneurysm, without rupture, unspecified; Translations: [Abdominal aortic aneurysm, without rupture, unspecified]Onset: 12-11-2023 Past or Other Problems Problem ClassificationProblemDateDocumented DateEpisodic/ChronicGenitourinary symptoms and ill-defined conditions (20 sources)Delay when starting to pass urine; Translations: [Hesitancy of micturition]Onset: 009650-43-2527DvpaklcjYkontvapziz deficiencies (20 sources)Folic acid deficiency; Translations: [Deficiency of other specified B group vitamins]Onset: 974850-12-4387SzxxgkjpYvcti connective tissue disease (20 sources)Impingement syndrome of shoulder region; Translations: [Impingement syndrome of unspecified shoulder]Onset: 978868-95-0340HoyzhvxeWiohl connective tissue disease (20 sources)Diastasis recti; Translations: [Separation of muscle (nontraumatic), other site]Onset: 640990-47-9225HfihwdfaPtawt lower respiratory disease (20 sources)Multiple nodules of lung; Translations: [Other nonspecific abnormal finding of lung field]Onset: 558813-81-6556PqeduuxzSpwin nervous system disorders (20 sources)Finding of hand region; Translations: [Tremor, unspecified]Onset: 323523-71-4037FvvfmpezEfcqk nutritional; endocrine; and metabolic disorders (20 sources)Metabolic syndrome X; Translations: [Dysmetabolic syndrome X]Onset: 07-25-2023 Resolved: 786856-53-0595ExgzmufQugkdewh codes; unclassified (20 sources)Poor short-term memory ; Translations: [Other amnesia]Onset: 540806-43-2165VapuvwcdIcuhyrktgsz; intervertebral disc disorders; other back problems (20 sources)Cervical radiculopathy; Translations: [Radiculopathy, cervical region]Onset: 794801-86-1569QlizttmkAagntlgemjtv (1 source)ABDOMINAL AA W/O RUPTURE UNSPCIFIED; Translations: [ABDOMINAL AA W/O RUPTURE UNSPCIFIED]Onset: 84-55-3335Nwwyabsrsgsh (1 source)Abdominal aortic aneurysm, without rupture, unspecified; Translations: [Abdominal aortic aneurysm, without rupture, unspecified]Onset: 11-17-2024 Results Test NameValueInterpretationReference ZscaaHjoaepjb25dz 15-67-653557NuqczMD Cleopatra Jung MA Aortic root dilatation appears to be stable on this echo, also the mitral regurgitation and pulmonary hypertension and the left ventricular function are also stable. Continue current management Spoke to patient to advise him of his Echo results per Dr. Harriss request. Patient verbalized understanding.[facility] HospitalCA ECHO DOPPLER COMPLETEon 25-16-6659LkhSaint [place] [address] Cardiology Report Signed Patient: LUCIO MADRIGAL MR#: [id number] : 1950 Acct:[id number] Age/Sex: 75 / M ADM Date: 08/13/25 Loc: CARD Attending Dr: Radha Cavazos M.D. Ordering Physician: Radha Cavazos M.D. Date of Service: 08/13/25 Procedure(s): CA echo doppler complete Accession Number(s): [id number] cc: ANTONY ZAMARRIPA ; Radha Cavazos M.D. Patient Name: LUCIO MADRIGAL MR#: [id number] : 1950 Exam Date: 08/13/2025 Ordering Doctor: [...] Nicolette Valdez M.D. on (more content not included)...[facility] Radiology, Radiologist, MD - 08/13/2025 [place] [address] Cardiology Report Signed Patient: LUCIO MADRIGAL MR#: [id number] : 1950 Acct:[id number] Age/Sex: 75 / M ADM Date: 08/13/25 Loc: CARD Attending Dr: Radha Cavazos M.D. Ordering Physician: Radha Cavazos M.D. Date of Service: 08/13/25 Procedure(s): CA echo doppler complete Accession Number(s): [id number] cc: ANTONY ZAMARRIPA ; Radha Cavazos M.D. Patient Name: LUCIO MADRIGAL MR#: [id number] : 1950 Exam Date: 08/13/2025 Ordering Doctor: [...] at 10:06 Dictated By: NICOLETTE VALDEZ Signed By: 08/13/25 1007 DD/ 1006 TD/TT: Dermatology Specialist: [facility] HealthcareRadiology Study observation (narrative)[facility] HealthcareCA ECHO DOPPLER COMPLETEOrdered By: Radiologist Radiology on 74-33-0549[facility] Work Phone: Office Visiton [phone]-up [id number] RohanLucio Logan 1950 M Date Provider Department Center 08/07/2025 [id number]-KYXFYORADHA [facility]OL[facility] Family History Problem Relation Age of Onset Heart attack Father Coronary artery disease Father Coronary artery disease Brother Stroke Brother Family Status - Relation Status Age at Mother Father Brother Level of Service:26595 ME OFFICE/OUTPATIENT ESTABLISHED MOD MDM 30 MIN Reason for Visit and Comments: Follow-up [960064] - Patient is here today for a 6 month follow up with abdominal US. Patient denies chest pain, leg swelling. Complains of occasional SOB, TELLEZ, fatigue, Atrial Fibrillation [80] Abdominal aortic aneurysm [Other] Hypertension [986958] Cardiac arrhythmia [Other] Cardiomegaly [Other] Hyperlipidemia [182] Left ventricular hypertrophy [Other] SVT [Other]NormalUnTuscarawas HospitalLaboratory - Hematology and Cell countson 38-20-1372DlW1b (Bld) [Mass fraction]7.3 %[facility] HealthcareNo Panel Informationon 90-15-3636UNHI Uplghizirg59og 92-51-525151Hpamrkckq AAA US performed on 05/19/2025: MD Christina Jung MA Please inform patient that the abdominal aortic aneurysm is still small. Patient has apt 06/03/2025.NormalUC West Chester HospitalUS Abdominal Aorta for screeningon 92-98-8952[place]rmSaint [place] [address] Ultrasound Report Signed Patient: LUCIO MADRIGAL MR#: [id number] : 1950 Acct:[id number] Age/Sex: 74 / M ADM Date: 05/18/25 Loc: US Attending Dr: Radha Cavazos M.D. Ordering Physician: Radha Cavazos M.D. Date of Service: 05/18/25 Procedure(s): US abdominal aortic aneurysm Accession Number(s): [id number] cc: ANTONY ZAMARRIPA ; Radha Cavazos M.D. The [address] [address] Patient Name: LUCIO MADRIGAL MRN: [id number] date: 1950 Sex: M Assigned Patient Location: US Current Patient Location: US Accession/Order Number: [id number] Exam Date: 05/18/2025 12:38 Report Date: 05/18/2025 [...] difference from the prior may relate to tricot knitting machine operator variability. There is probably no significant change. The bifurcation is visualized and the left iliac artery is slightly larger in caliber than the right. There is no periaortic fluid. US/US abdominal aortic aneurysm IMPRESSION: DISTAL ABDOMINAL AORTIC ANEURYSM WITH AP DIAMETER OF APPROXIMATELY 2.6 CM. Impression dictated by: Karrie Desai M.D. 05/18/2025 12:48 PM Dictation Location: [place] [address] Electronically authenticated by: [id number] Y Date: 05/18/2025 12:48 Dictated By: Karrie Desai M.D. Signed By: 05/18/25 1251 DD/ 1248 TD/TT: Dermatology Specialist:TBHRadiology, Radiologist, MD - 05/18/2025 [place] [address] Ultrasound Report Signed Patient: LUCIO MADRIGAL MR#: [id number] : 1950 Acct:[id number] Age/Sex: 74 / M ADM Date: 05/18/25 Loc: US Attending Dr: Radha Cavazos M.D. Ordering Physician: Radha Cavazos M.D. Date of Service: 05/18/25 Procedure(s): US abdominal aortic aneurysm Accession Number(s): [id number] cc: ANTONY ZAMARRIPA ; Radha Cavazos M.D. The [address] [address] Patient Name: LUCIO MADRIGAL MRN: [id number] date: 1950 Sex: M Assigned Patient Location: US Current Patient Location: US Accession/Order Number: [id number] Exam Date: 05/18/2025 12:38 Report Date: 05/18/2025 [...] difference from the prior may relate to tricot knitting machine operator variability. There is probably no significant change. The bifurcation is visualized and the left iliac artery is slightly larger in caliber than the right. There is no periaortic fluid. US/US abdominal aortic aneurysm IMPRESSION: DISTAL ABDOMINAL AORTIC ANEURYSM WITH AP DIAMETER OF APPROXIMATELY 2.6 CM. Impression dictated by: Karrie Desai M.D. 05/18/2025 12:48 PM Dictation Location: [place] [address] Electronically authenticated by: [id number] Y Date: 05/18/2025 12:48 Dictated By: Karrie Desai M.D. Signed By: 05/18/25 1251 DD/ 1248 TD/TT: Dermatology Specialist: [facility] HealthcareRadiology Study observation (narrative)TAMARA BillsUS Abdominal Aorta for screeningOrdered By: Radiologist Radiology on 21-96-8386MSTX [facility] Work Phone: Office Visiton [phone]-up [id number] Lucio Madrigal 1950 M Date Provider Department Center 11/17/2024 53231-TMFRTIRADHA CAVAZOS [facility] Family History Problem Relation Age of Onset Heart attack Father Coronary artery disease Father Coronary artery disease Brother Stroke Brother Family Status - Relation Status Age at Father Brother Level of Service:67295 ME OFFICE/OUTPATIENT ESTABLISHED MOD [facility] 30 MIN Reason for Visit and Comments: Atrial Fibrillation [80] - Denies palpitations, lightheadedness/syncope, and bleeding on Eliquis. Hypertension [988687] Hyperlipidemia [182] - Had routine labs with lipid panel in Aug 2024. abdominal aortic aneurysm [Other] - Denies chest pain. Shortness of Breath [856263] - Intermittent. Was shoveling snow the other day and says he was able to do so without SOB and/or chest pain.NormalUC West Chester HospitalALBUMIN, RANDOM URINE W/CREATININEon 05-90-4164QBVUVNM, URINE0.6 mg/dLNormalSee Note:[facility] DiagnosticsComment on above:Order Comment: SPLIT 08/19/2024 FROM [id number] Comment: Reference Range: Reference Range Not establishedPerformed By: #### [id number] #### [facility] [address], [address] [place] [address] Sandblaster Supervisor: Jalil Garcia MDALBUMIN/CREATININE RATIO, RANDOM URINE7 mg/g creatNormal<30Quest DiagnosticsComment on above:Order Comment: SPLIT 08/19/2024 FROM [id number] Comment: The ADA defines abnormalities in albumin excretion as follows: Albuminuria Category Result (mg/g creatinine) Normal to Mildly increased <30 Moderately increased 30-299 Severely increased > OR = 300 The ADA recommends that at least two of three specimens collected within a 3-6 month period be abnormal before considering a patient to be within a diagnostic category.Performed By: #### 6517 #### [facility] [address], [address] [place] [address] Sandblaster Supervisor: Jalil Garcia MDCreatinine (U) [Mass/Vol]88 mg/cAKvzumv14-932 [facility] DiagnosticsComment on above:Order Comment: SPLIT 08/19/2024 FROM [id number] Performed By: #### 6517 #### [facility] [address], [address] [place] [address] Sandblaster Supervisor: Jalil Garcia MDLaboratory - Hematology and Cell countson 37-40-2464FvX6p (Bld) [Mass fraction]8.9 %[facility] HealthcareNo Panel Informationon 59-58-7387MSKS Healthcare.Interpretation:on 63-49-0379MVQ Ab IA QlCommentInvalid Interpretation [facility] SystemComment on above:Result Comment: Not infected with HCV unless early or acute infection is suspected (which may be delayed in an immunocompromised individual), or other evidence exists to indicate HCV infection. Performed at: [address] [id number] [phone] PhD Mellissa Tolliverformed By: #### [id number] #### [facility] [address], [place] [address]EARct 02-53-1356Lnsufediinu converting enzyme [Catalytic activity/Vol]17 U/LInvalid Interpretation Ungs08-37QwgijsUniversity Hospitals Beachwood Medical Center Comment on above:Result Comment: Performed at: [address] [id number] [id number] [facility] Mellissa Tolliverformed By: #### [id number] #### [facility] [address], [place] [address]ATPdf 40-54-6397CQF.tumor marker [Mass/Vol]3.5 ng/mLInvalid Interpretation Code0.0-8.4FOhioHealth Mansfield HospitalComment on above:Result Comment: [employer] Electrochemiluminescence Immunoassay (ECLIA) Values obtained with different assay methods or kits cannot be used interchangeably. Results cannot be interpreted as absolute evidence of the presence or absence of malignant disease. This test is not interpretable in females. Performed at: [address] [id number] [phone] [facility] hospitalayush Tolliverformed By: #### [id number] #### [facility] [address], [place] [address]MSQ w/Reflex if POSon 33-95-4089Ldoxrmt Ab Ql (S)Negative Invalid Interpretation CodeNegativeUniversity Hospitals Beachwood Medical CenterComment on above: Result Comment: Performed at: [address] [id number] [phone] PhD Mellissa Tolliverformed By: #### [id number] #### [facility] [address], [place] [address]C4 Microon 56-92-6783Frhh-2-Microglobulin [Mass/Vol]1.8 ug/mL Invalid Interpretation Code0.6-2.4FOhioHealth Mansfield HospitalComment on above: Result Comment: Siemens Immulite 2000 Immunochemiluminometric assay (ICMA) Values obtained with different assay methods or kits cannot be used interchangeably. Results cannot be interpreted as absolute evidence of the presence or absence of malignant disease. Performed at: [address] [id number] [phone] MD Nestor Holdenformed By: #### [id number] #### [facility] [address], [place] [address]IE 19-9on 99-15-9350Kozfrn Ag 19-9 Qn13 unit/mLInvalid Interpretation Code0-35University Hospitals Beachwood Medical CenterComment on above:Result Comment: [employer] Electrochemiluminescence Immunoassay (ECLIA) Values obtained with different assay methods or kits cannot be used interchangeably. Results cannot be interpreted as absolute evidence of the presence or absence of malignant disease. Performed at: [address] [phone] [phone] PhD Mellissa DeleonPerformed By: #### [id number] #### [facility] [address] [place] [address]Urln panel: Leuk/Lym [id number] 75-58-7990Hwqhxnji and Gating StrategyCommentInvalid Interpretation The Metro[facility] SystemComment on above:Result Comment: 8 color analysis with CD45/SSC gating MAZNCPerformed By: #### [id number] #### [facility] [address] [place] [address]Jbuzcngyer comment [Interpretation] NarrativeCommentInvalid Interpretation The [facility] SystemComment on above:Result Comment: The finding of monocytosis is non-specific and can be seen in both reactive/activated processes and neoplastic processes. If monocytosis persists (monocytes >/= 0.5 K/uL AND >/= 10% of leukocytes) without secondary etiologies identified, further evaluation of a myeloid neoplasm, such as chronic myelomonocytic leukemia, is warranted if clinically indicated. Recommend clinical correlation and follow up as appropriate.Performed By: #### [id number] #### [facility] [address], [place] [address]Vpzacmshgw of LeukocytesCommentInvalid Interpretation Code [facility]als Beachwood Medical CenterComment on above:Result Comment: No monoclonal B cell [...] cells 56%, NK cells 24%.Performed By: #### [id number] #### [facility] [address], [place] [address]Hukgegdm informationCommentInvalid Interpretation The [facility] SystemComment on above:Result Comment: Accompanying CBC dated 09/22/2024 shows: WBC count 6.0, Hgb 16.2, Lily 4.0, Lym 1.2, Mon 0.6.Performed By: #### [id number] #### [facility] [address], [place] [address]Jzdydzupjufocdscl studyCommentInvalid Interpretation The [facility] SystemComment on above:Result Comment: CD2 Normal CD3 Normal CD4 Normal CD5 Normal CD7 Normal CD8 Normal CD10 Normal CD11b Normal CD13 Normal CD14 Normal CD16 Normal CD19 Normal CD20 Normal CD33 Normal CD34 Normal CD38 Normal CD45 Normal CD56 See Text CD57 Normal CD117 Normal HLA-DR Normal KAPPA Normal LAMBDA Normal CD64 NormalPerformed By: #### [id number] #### [facility] [address], [place] [address]Uzaehddgjg comment Sundeep (Report)CommentInvalid Interpretation [facility] SystemComment on above:Result Comment: Each antibody in this assay was utilized to assess for potential abnormalities of studied cell populations or to characterize identified abnormalities. This test was developed and its performance characteristics determined by [employer]. It has not been cleared or approved by the U.S. Food and Drug Administration. The FDA has determined that such clearance or approval is not necessary. This test is used for clinical purposes. It should not be regarded as investigational or for research. Performed at: -[facility] [place] [address] [facility] [place], [place] [id number] [facility] Sherrie Terrazas Performed at: [facility] [address] [place], [place] [id number] [phone] MD Sherrie Terrazas Performed at: [facility] [address] [facility] [place], [place] [id number] [phone] [facility] Sherrie SiegelnPerformed By: #### [id number] #### [facility] [address], [place] [address]Nyivawyxmec interpretation (Unsp spec) [Interp]CommentInvalid Interpretation [facility] SystemComment on above:Result Comment: 1) No diagnostic immunophenotypic abnormality detected 2) Relative monocytosis with rare phenotypic aberrancy, representing 10% of leukocytes, see commentPerformed By: #### [id number] #### [facility] [address], [place] [address]Iznpsbwpswe nameCommentInvalid Interpretation [facility] SystemComment on above:Result Comment: Malathi Ernandez M.D.Performed By: #### [id number] #### [facility] [address], [place] [address]Laxrgwpd source Nom (Unsp spec)CommentInvalid Interpretation [facility] SystemComment on above:Result Comment: Peripheral blood Performed By: #### [id number] #### [facility] [address], [place] [address]Dznfps cells/100 cells (Unsp spec)CommentInvalid Interpretation [facility] SystemComment on above:Result Comment: 84%Performed By: #### [id number] #### [facility] [address], [place] [address]Ixjgtx Lvlon 65-38-0469Ncpqee [Mass/Vol]110 microgram/dLInvalid Interpretation Lbom28-020NgrfeqUniversity Hospitals Beachwood Medical CenterComment on above:Result Comment: This test was developed and its performance characteristics determined by [facility]. It has not been cleared or approved by the Food and Drug Administration. Detection Limit = 5 Performed [facility]: [facility] [address], [place] [phone] MD Nestor Holdenformed By: #### [id number] #### [facility] [address] [place], [place] [address]Ohkj Interp 16 or moreon 52-12-7315Kywu Interp 16 or more PerformedInvalid Interpretation The [facility] SystemComment on above: Result Comment: Performed at: -[facility] [address] [place], [place] [id number] [phone] [facility] Sherrie Sortoerformed By: #### [id number] #### [facility] [address] [place], [place] [address]Lbkr Marker, Firston 51-98-1079Ercj Marker, FirstPerformed Invalid Interpretation The [facility] SystemComment on above:Result Comment: Performed at: -[facility] [address] [place], [place] [id number] [id number] [facility] Sherrie SiegelnPerformed By: #### [id number] #### [facility] [address] [place], [place] [address]Brtr Markers X 15on 25-61-8603Gyfk Markers X 15PerformedInvalid Interpretation The [facility] SystemComment on above:Result Comment: Performed at: -[facility] [address] [place], [place] [id number] [id number] [facility] Chenn AnjenPerformed By: #### [id number] #### [facility] [address] [place], [place] [address]Niio Markers X 3on 34-26-1875Dyis Markers X 3PerformedInvalid Interpretation The [facility] SystemComment on above:Result Comment: Performed at: -[facility] [address] [place], [place] [id number] [id number] [facility] Sherrie Sortoerformed By: #### [id number] #### [facility] [address], [place] [address]Qplw Markers X 5on 25-68-9311Medp Markers X 5PerformedInvalid Interpretation CodeUniversity Hospitals Beachwood Medical CenterComment on above:Result Comment: Performed at: -[facility] [address] [facility], [place] [id number] [phone] [facility] Sherrie Sortoerformed By: #### [id number] #### [facility] [address], [place] [address]Pkuu K+L Lt Chains,Qn,Son 79-68-6021Vzdvewurxljxmu light chains.kappa.free (S) [Mass/Vol]18.6 mg/LInvalid Interpretation Code3.3-19.4 [facility] Beachwood Medical CenterComment on above:Performed By: #### [id number] #### [facility] [address], [place] [address]Wbqcilprxjbrty light chains.kappa.free/Immunoglobulin light chains.lambda.free (S) [Mass ratio]1.10Invalid Interpretation Code0.26-1.65 [facility] Beachwood Medical CenterComment on above:Result Comment: Performed at: [facility] [address] [place], [place] [id number] [phone] PhD Mellissa Tolliverformed By: #### [id number] #### [facility] [address], [place] [address]Giwdhaplacudin light chains.lambda.free [Mass/Vol]16.9 mg/L Invalid Interpretation Code5.7-26.3FOhioHealth Mansfield HospitalComment on above: Performed By: #### [id number] #### [facility] [address], [place] [address]LHR Antibody RFX to Quant PCRon 81-59-5264NKL IgG IA Ql Non-ReactiveInvalid Interpretation CodeNon ReactiveUniversity Hospitals Beachwood Medical Center Comment on above:Result Comment: Performed at: [facility] [address] [place], [place] [id number] [phone] [facility] Mellissa Tolliverformed By: #### [id number] #### [facility] [address], [place] [address]XHU Screen 4th Generation wRfxon 50-87-9998VTS 1+2 Ab+HIV1 p24 Ag IA QlNon-ReactiveInvalid Interpretation CodeNon ReactiveUniversity Hospitals Beachwood Medical CenterComment on above:Result Comment: HIV-1/HIV-2 antibodies and HIV-1 p24 antigen were NOT detected. There is no laboratory evidence of HIV infection. HIV Negative Performed at: [address] [id number] [phone] [facility] Heveruofl health - peace hospitaltyrese DeleonDignity Health East Valley Rehabilitation Hospitalformed By: #### [id number] #### [facility] [address], [place] [address]Kgg A IgMon 54-55-6190GJU IgM IA QlNegativeInvalid Interpretation CodeNegativeUniversity Hospitals Beachwood Medical CenterComment on above:Result Comment: A negative anti-HAV IgM result suggests no recent or current HAV infection. Performed at: [address] [phone] [facility] Mellissa DeleonDignity Health East Valley Rehabilitation Hospitalformed By: #### [id number] #### [facility] [address], [place] [address]Fqa B Core Ab, IgMon 31-20-0211HML core IgM IA QlNegative Invalid Interpretation CodeNegativeUniversity Hospitals Beachwood Medical CenterComment on above: Result Comment: Performed at: [address] [id number] [phone] [facility] Mellissa DeleonDignity Health East Valley Rehabilitation Hospitalformed By: #### [id number] #### [facility] [address], [place] [address]Sat Bs Abon 16-21-5041QSM surface Ab Ql (S)Non-ReactiveInvalid Interpretation CodeUniversity Hospitals Beachwood Medical CenterComment on above:Result Comment: Non Reactive: Not immune to HBV infection. Equivocal: Unable to determine if anti-HBs is present at levels consistent with immunity. Reactive: Anti-HBs concentration detected at greater than 10 mIU/mL. Individual is considered to be immune to infection with HBV. Performed at: [facility] [address], [place] [id number] [phone] PhD Mellissa Tolliverformed By: #### [id number] #### [facility] [address], [place] [address]Ejf Bs Agon 28-35-7505LWX surface Ag IA QlNegativeInvalid Interpretation CodeNegativeUniversity Hospitals Beachwood Medical CenterComment on above:Result Comment: Performed at: [facility] [address], [place] [id number] [id number] PhD Mellissa Tolliverformed By: #### [id number] #### [facility] [address], [place] [address]ZWR and PE, Serumon 45-66-2866Dreuexk [Mass/Vol]4.2 g/dLInvalid Interpretation Code2.9-4.4FOhioHealth Mansfield HospitalComment on above:Performed By: #### [id number] #### [facility] [address], [place] [address]Bhemdep/Globulin [Mass ratio]1.3 {ratio}Invalid Interpretation Code0.7-1.7FOhioHealth Mansfield HospitalComment on above:Performed By: #### [id number] #### [facility] [address], [place] [address]Ufggt 1 globulin Elph [Mass/Vol]0.3 g/dLInvalid Interpretation Code0.0-0.4FOhioHealth Mansfield HospitalComment on above:Performed By: #### [id number] #### [facility] [address], [place] [address]Yhwbx 2 globulin Elph [Mass/Vol]1.0 g/dLInvalid Interpretation Code0.4-1.0[facility] Medical CenterComment on above:Performed By: #### [id number] #### [facility] [address], [place] [address]Nied globulin Elph [Mass/Vol]1.3 g/dLInvalid Interpretation Code0.7-1.3FOhioHealth Mansfield HospitalComment on above:Performed By: #### [id number] #### [facility] [address], [place] [address]Aetap globulin Elph [Mass/Vol]0.8 g/dLInvalid Interpretation Code0.4-1.8[facility] Medical CenterComment on above:Performed By: #### [id number] #### [facility] [address], [place] [address]Zyrwfhlm (S) [Mass/Vol]3.3 g/dLInvalid Interpretation Code 2.2-3.9[facility] Medical CenterComment on above:Performed By: #### [id number] #### [facility] [address], [place] [address]NrC [Mass/Vol]245 mg/dLInvalid Interpretation Duor91-884JwhzklUniversity Hospitals Beachwood Medical CenterComment on above:Performed By: #### [id number] #### [facility] [address] [place] [address]UuN [Mass/Vol]912 mg/dLInvalid Interpretation Qvlx818-8946 [facility] Medical CenterComment on above:Performed By: #### [id number] #### [facility] [address] [place] [address]RyZ [Mass/Vol]67 mg/dLInvalid Interpretation Vkqc96-189QajguwUniversity Hospitals Beachwood Medical CenterComment on above:Performed By: #### [id number] #### [facility] [address], [place] [address]Snnfgqegjzfttv IEP [Interp]CommentInvalid Interpretation Code [facility] Medical CenterComment on above:Result Comment: No monoclonality detected.Performed By: #### [id number] #### [facility] [address], [place] [address]Hdkdzewyji comment Sundeep (Report)CommentInvalid Interpretation CodeUniversity Hospitals Beachwood Medical CenterComment on above:Result Comment: Protein electrophoresis scan will follow via computer, mail, or senior credit officer delivery. Performed at: [address] [phone] [phone] PhD Mellissa Tolliverformed By: #### [id number] #### [facility] [address], [place] [address]Vzwkzxh [Mass/Vol]7.5 g/dLInvalid Interpretation Code6.0-8.5 [facility] Medical CenterComment on above:Performed By: #### [id number] #### [facility] [address], [place] [address]Wtetxle.monoclonal Elph [Mass/Vol]Not ObservedInvalid Interpretation CodeNot ObservedUniversity Hospitals Beachwood Medical CenterComment on above: Performed By: #### [id number] #### [facility] [address] [place] [address]CmC, Quanton 65-39-7431YnA Qn118 International_Unit/mLInvalid Interpretation Code6-495[facility] Beachwood Medical CenterComment on above:Order Comment: Added by Discern ExpertResult Comment: Performed at: [address] [phone] [phone] MD Nestor Holdenformed By: #### [id number] #### [facility] [address], [place] [address]Citn, Adulton 57-99-5016Ufqt (BldV) [Mass/Vol]1.8 microgram/dL Invalid Interpretation Code0.0-3.4FOhioHealth Mansfield HospitalComment on above: Result Comment: Testing performed by Inductively coupled plasma/Mass Spectrometry. Analysis by inductively coupled plasma/mass spectrometry (ICP/MS) This test was developed and its performance characteristics determined by [facility]. It has not been cleared or approved by the Food and Drug Administration. Environmental Exposure: WHO Recommendation <5.0 Occupational Exposure: OSHA Lead Std 40.0 CADY 30.0 Detection Limit = 1.0 Performed at: [address] [id number] [phone] PhD Mellissa Tolliverformed By: #### [id number] #### [facility] [address], [place] [address]ZV Quanton 10-58-4142Muadznnjwm factor Qn[IU]/mLInvalid Interpretation Code<14.0[facility] Medical CenterComment on above:Result Comment: Performed at: [address] [id number] [phone] PhD Mellissa Tolliverformed By: #### [id number] #### [facility] [address] [place] [address]Xky Miscellaneous-LCon 89-17-2643Akr MiscellaneousCOMMENT Invalid Interpretation CodeFishUniversity of Maryland Medical Center Midtown CampusComment on above:Order Comment: 24 hour urine Total Volume of 2,900ml information also documented on the cup 09/25/2024 11:37:38 EST loc338Hrqomb Comment: Test Ordered: [id number] DONA+Protein Electro, 24-Hr Ur Protein,Total,Urine 5.0 mg/dL CB Reference Range: Not Estab. Prot,24hr calculated 145 mg/24 hr CB Reference Range: 30-150 Albumin, U 21.6 % CB Kaclg-1-Lccizveg, U 4.6 % CB Wfvlc-2-Ggsettaq, U 9.0 % CB Beta Globulin, U 21.5 % CB Gamma Globulin, U 43.3 % CB M-Nader, % Note: % CB Not Observed Reference Range: Not Observed Immunofixation Result, Urine Comment CB No monoclonality detected. Note: Comment CB Protein electrophoresis scan will follow via computer, mail, or senior credit officer delivery. Performed at: [address] [id number] [phone] PhD Mellissa Tolliverformed By: #### [id number] #### [facility] [address] [place] [address]Qqgqf Comment: 25 hour urine with a total volulme of 2,900ml. Information is also documented on thecup. 09/25/2024 11:38:20 EST [id number] Comment: Test Ordered: [id number] Protein Electro, 24-Hour Urine Protein,Total,Urine 5.8 mg/dL CB Reference Range: Not Estab. Prot,24hr calculated 168 [H ] mg/24 hr CB Reference Range: 30-150 Albumin, U 36.4 % CB Adjff-7-Dwtwjqsx, U 2.7 % CB Bkryo-7-Ueylguwd, U 23.2 % CB Beta Globulin, U 22.7 % CB Gamma Globulin, U 15.0 % CB M-Nader, % Note: % CB Not Observed Reference Range: Not Observed Please note: Comment CB Protein electrophoresis scan will follow via computer, mail, or senior credit officer delivery. Performed at: [facility] [address] [id number] [phone] PhD Mellissa DeleonSabetha Community Hospital Miscellaneous-LCon 99-43-9105Fioo [id number] Invalid Interpretation The [facility] SystemComment on above:Order Comment: 24 hour urine Total Volume of 2,900ml information also documented on the cup 09/25/2024 11:37:38 EST [id number] By: #### [id number] #### [facility] [address] [place] [address]Ksne [id number] Interpretation [facility] SystemComment on above:Order Comment: 25 hour urine with a total volulme of 2,900ml. Information is also documented on thecup. 09/25/2024 11:38:20 EST keo632Yknepxpqw By: #### [id number] #### [facility] [address] [place] [address]Fbc Miscellcleveland clinic foundation-LCOrdered By: Elile Bell on 77-48-6687Yzrp Name24 Urine - IFEInvalid Interpretation [facility] SendOutsSSComment on above: Order Comment: 24 hour urine Total Volume of 2,900ml information also documented on the cup 09/25/2024 11:37:38 EST zhd067Vssedbdsm By: #### [id number] #### [facility] [address] [place] [address]Ikxo Name24 urine UPEPInvalid Interpretation [facility] SendOutsSSComment on above:Order Comment: 25 hour urine with a total volulme of 2,900ml. Information is also documented on thecup. 09/25/2024 11:38:20 EST [id number] By: #### [id number] #### [facility] [address] [place] [address]Dtilhaiow Laboratory TestingOrdered By: Ellie Bell on 85-06-7995Ltrl [id number] 1Invalid Interpretation CodeINTEGRIS B[facility] SendOutsSSTest Code [id number] 1Invalid Interpretation CodeINTEGRIS B[facility] SendOutsSSCBC w/ Auto Diffon 09-22-2024 Basophils/100 WBC (Bld)1.0 %Normal0.0-2.0[facility] Medical CenterComment on above:Performed By: #### [id number] #### [facility] [address] [place] [address]Dxpzvjapt/Leukocytes Auto (Bld) [Pure # fraction]0.1 E9/LNormal 0.0-0.2FOhioHealth Mansfield HospitalComment on above:Performed By: #### [id number] #### [facility] [address] [place] [address]Bmjkmgvudme (Bld) [#/Vol]0.1 E9/LNormal0.0-0.5FOhioHealth Mansfield HospitalComment on above:Performed By: #### [id number] #### [facility] [address] [place] [address]Hvsjopydhop/100 WBC (Bld)2.4 %Normal0.0-8.0[facility] Medical CenterComment on above:Performed By: #### [id number] #### [facility] [address] [place] [address]Uaaknaptmgn distribution width (RBC) [Ratio]13.7 %Normal 10.9-14.2FOhioHealth Mansfield HospitalComment on above:Performed By: #### [id number] #### [facility] [address] [place] [address]Omuiefghxk (Bld) [Volume fraction]46.8 %Hhdqek50.7-49.0[facility] Medical CenterComment on above:Performed By: #### [id number] #### [facility] [address] [place] [address]Sgoknxsbuo (Bld) [Mass/Vol]16.2 g/eBRcqeku72.5-17.5FOhioHealth Mansfield HospitalComment on above:Performed By: #### [id number] #### [facility] [address] [place] [address]Fmstyjcsbpp (Bld) [#/Vol]1.2 E9/LNormal1.0-4.0[facility] Medical CenterComment on above:Performed By: #### [id number] #### [facility] [address] [place] [address] 30365Ddxbjjqirqu/100 WBC (Bld)20.0 %Gbaucp03.0-50.0[facility] CenterComment on above:Performed By: #### [id number] #### [facility] [address] [place] [address] 54378FGL (RBC) [Entitic mass]32.4 ksTaullv08.0-34.0[facility] CenterComment on above:Performed By: #### [id number] #### [facility] [address] [place] [address] 12756DTRZ (RBC) [Mass/Vol]34.6 g/zZUjkwaz96.4-36.0[facility] CenterComment on above:Performed By: #### [id number] #### [facility] [address] [place] [address] 87211ITI (RBC) [Entitic vol]93.5 dWEpqieh23.0-100.0[facility] CenterComment on above:Performed By: #### [id number] #### [facility] [address] [place] [address] 32167Akxxfzdkj (Bld) [#/Vol]0.6 E9/LNormal0.2-1.0[facility] CenterComment on above:Performed By: #### [id number] #### [facility] [address] [place] [address] 48797Uondamphbsi (Bld) [#/Vol]4.0 E9/LNormal2.0-7.5FOhioHealth Mansfield HospitalComment on above:Performed By: #### [id number] #### [facility] [address], [place] [address]Sdnceozwpbu/100 WBC (Bld)66.3 %Otfynv69.0-75.0[facility] CenterComment on above:Performed By: #### [id number] #### [facility] [address], [place] [address]Sdoejocd379.0 E9/WStnjtd283.0-500.0[facility] Comment on above:Performed By: #### [id number] #### [facility] [address] [place] [address] 94447Guqhjgdu mean volume (Bld) [Entitic vol]8.5 fLNormal6.4-10.8 [facility] CenterComment on above:Performed By: #### [id number] #### [facility] [address] [place] [address] 80356QRW (Bld) [#/Vol]5.0 E12/LNormal4.3-5.9[facility] CenterComment on above:Performed By: #### [id number] #### [facility] [address] [place] [address] 02071XSG corrected for nucl RBC Auto (Bld) [#/Vol]6.0 E9/LNormal 4.0-11.0[facility] CenterComment on above:Performed By: #### [id number] #### [facility] [address] [place] [address] 99477NKBuh 13-78-2333ZAR8.1 ng/mLInvalid Interpretation CodeUniversity Hospitals Beachwood Medical CenterComment on above:Result Comment: 'NON-SMOKER < 2.5' 'SMOKER < 5.0' The concentration of CEA in a given specimen determined by different manufacturers can vary due to differences in assay methods and reagent specificity. Values obtained with different assay methods cannot be used interchangeably. The methodology used to perform this test was chemiluminescence usingMantara's Access CEA reagent.Performed By: #### [id number] #### [facility] [address] [place] [address] 13729MDDHBZJULMbvdwfa By: SYSTEM SYSTEM on 89-36-3307Uhecseb [Mass/Vol]4.8 g/dLNormal3.3 - 5.0 gm/dLRemisol ChemAlbumin/Globulin [Mass [...] to perform this test was chemiluminescence using [employer]'s Access CEA reagent.Chloride [Moles/Vol]101 mmol/XJaadgt346 - 111 mmol/LRemisol ChemCO2 [Moles/Vol]27 mmol/L Rsritf87 - 31 mmol/LRemisol ChemCreatinine [Mass/Vol]1.4 mg/dLHigh0.5 - 1.3 mg/dLRemisol ChemCRP [Mass/Vol]mg/dLNormal<=1.9mg/dLRemisol RtkcsOXF96 mL/min/1.73 m2Low>=59mL/min/1.73 f6Kovnbds ChemGlobulin (S) [Mass/Vol]2.8 g/dL Normal1.4 - 4.0 gm/dLRemisol ChemGlucose [Mass/Vol]200 mg/yLZntk62 - 199 mg/dL Remisol WupvGIT425 [iU]/dUcqgft96 - 218 Int._Unit/LRemisol ChemMagnesium [Mass/Vol]2.2 mg/dLNormal1.3 - [...] used for this result was chemiluminescence using Mant[employer]'s Access Hybritech PSA reagent.Protein [Mass/Vol]7.6 g/dLNormal6.0 - 7.8 gm/dLRemisol ChemSodium [Moles/Vol]137 mmol/SBmsysw067 - 145 mmol/LRemisol ChemUrate [Mass/Vol]5.1 mg/dL Normal2.2 - 7.4 mg/dLRemisol ChemUrea nitrogen [Mass/Vol]20 mg/dLNormal5 - 21 mg/dLRemisol ChemUrea nitrogen/Creatinine [Mass ratio]14 mg/vlPjnvhz70 - 20 Remisol ChemCMPon 19-58-2015Ahbcnxy [Mass/Vol]4.8 g/dLNormal3.3-5.0[facility] CenterComment on above:Performed By: #### [id number] #### [facility] [address], [place] [address]Lovpigr/Globulin (S) [Mass conc ratio]1.0Eqmyxx0.1-2.2FOhioHealth Mansfield HospitalComment on above:Performed By: #### [id number] #### [facility] [address], [place] [address]SWB [Catalytic activity/Vol]106 Int._Unit/HBqpo84-83BcvbolUniversity Hospitals Beachwood Medical CenterComment on above:Performed By: #### [id number] #### [facility] [address], [place] [address]HGG No additional P-5'-P [Catalytic activity/Vol]24 Int._Unit/L Normal6-46[facility] CenterComment on above:Performed By: #### [id number] #### [facility] [address], [place] [address]Ewtcd gap [Moles/Vol]13 mmol/LNormal6-16[facility] CenterComment on above:Performed By: #### [id number] #### [facility] [address], [place] [address]XEZ [Catalytic activity/Vol]14 Int._Unit/LNormal5-43[facility] CenterComment on above:Performed By: #### [id number] #### [facility] [address], [place] [address]Mwfutcdfn [Mass/Vol]0.7 mg/dLNormal0.0-1.1FOhioHealth Mansfield HospitalComment on above:Performed By: #### [id number] #### [facility] [address] [place] [address] 918[address]Cmwwtvn [Mass/Vol]10.0 mg/dLNormal8.9-11.1FOhioHealth Mansfield HospitalComment on above:Performed By: #### [id number] #### [facility] [address], [place] [address]Pxypjutr [Moles/Vol]101 mmol/MHvjlpk760-496VfsmvkUniversity Hospitals Beachwood Medical CenterComment on above:Performed By: #### [id number] #### [facility] [address], [place] [address]IS9 [Moles/Vol]27 mmol/GDgvyjy17-00HviysiUniversity Hospitals [facility] Comment on above:Performed By: #### [id number] #### [facility] [address], [place] [address]Dpvuoykwue [Mass/Vol]1.4 mg/dLHigh0.5-1.3FOhioHealth Mansfield HospitalComment on above:Performed By: #### [id number] #### [facility] [address], [place] [address]Ecvbajud (S) [Mass/Vol]2.8 g/dLNormal1.4-4.0[facility] CenterComment on above:Performed By: #### [id number] #### [facility] [address], [place] [address]Thsryem [Mass/Vol]200 mg/zOJjvh36-352MmjssyUniversity Hospitals Beachwood Medical CenterComment on above:Performed By: #### [id number] #### [facility] [address], [place] [address]Mkruaaqqk [Moles/Vol]4.3 mmol/LNormal3.5-5.3FOhioHealth Mansfield HospitalComment on above:Performed By: #### [id number] #### [facility] [address], [place] [address]Shdlypr [Mass/Vol]7.6 g/dLNormal6.0-7.8[facility] CenterComment on above:Performed By: #### [id number] #### [facility] [address] [place] [address] 18175Cjkevl [Moles/Vol]137 mmol/QXmyvce510-079TnszinUniversity Hospitals Beachwood Medical CenterComment on above:Performed By: #### [id number] #### [facility] [address], [place] [address]Rfgc nitrogen [Mass/Vol]20 mg/dLNormal5-21[facility] CenterComment on above:Performed By: #### [id number] #### [facility] [address], [place] [address]Mkrq nitrogen/Creatinine [Mass ratio]14 No LqpfcUlomvy63-42 [facility] CenterComment on above:Performed By: #### [id number] #### [facility] [address], [place] [address]UPFfl 70-10-7199EQK [Mass/Vol]mg/LNormal<=1.9[facility]er [facility] InstituteComment on above:Performed By: #### [id number] #### [facility] [address], [place] [address]OVEUOLMYUEXtnbtpw By: SYSTEM SYSTEM on 60-20-0948Qbqgusxna/100 WBC (Bld)1.0 %Normal0.0 - 2.0 %Remisol HemeBasophils/Leukocytes Auto (Bld) [Pure # fraction]0.1 E9/LNormal0.0 - 0.2 E9/LRemisol HemeEosinophils (Bld) [#/Vol]0.1 E9/LNormal0.0 - 0.5 E9/LRemisol HemeEosinophils/100 WBC (Bld)2.4 %Normal0.0 - 8.0 %Remisol HemeErythrocyte distribution width (RBC) [Ratio]13.7 %Odqlbl66.9 - 14.2 %Remisol HemeHematocrit (Bld) [Volume fraction]46.8 %Useqjt53.7 - 49.0 % Remisol HemeHemoglobin (Bld) [Mass/Vol]16.2 g/sBMleimf01.5 - 17.5 gm/dLRemisol HemeLymphocytes (Bld) [#/Vol]1.2 E9/LNormal1.0 - 4.0 E9/LRemisol Heme Lymphocytes/100 WBC (Bld)20.0 %Umtqxu84.0 - 50.0 %Remisol HemeMCH (RBC) [Entitic mass]32.4 bfWminve90.0 - 34.0 pgRemisol HemeMCHC (RBC) [Mass/Vol]34.6 g/dL Pkeswk41.4 - 36.0 gm/dLRemisol HemeMCV (RBC) [Entitic vol]93.5 uJDftxpj86.0 - 100.0 fLRemisol HemeMonocytes (Bld) [#/Vol]0.6 E9/LNormal0.2 - 1.0 E9/LRemisol HemeMonocytes/100 WBC (Bld)10.3 %Normal4.0 - 14.0 %Remisol HemeNeutrophils (Bld) [#/Vol]4.0 E9/LNormal2.0 - 7.5 E9/LRemisol HemeNeutrophils/100 WBC (Bld)66.3 % Ikwwfm04.0 - 75.0 %Remisol GhmkEjunvobp338.0 E9/ZBfffjc146.0 - 500.0 E9/LRemisol HemePlatelet mean volume (Bld) [Entitic vol]8.5 fLNormal6.4 - 10.8 fLRemisol HemeRBC (Bld) [#/Vol]5.0 E12/LNormal4.3 - 5.9 E12/LRemisol HemeWBC corrected for nucl RBC Auto (Bld) [#/Vol]6.0 E9/LNormal4.0 - 11.0 E9/LRemisol HemeLDHon 51-20-6418XEG663 Int._Unit/DSxuipk28-853DrlcpsUniversity Hospitals Beachwood Medical CenterComment on above:Performed By: #### [id number] #### [facility] [address], [place] [address]Khvz, Adulton 70-74-2270Ydjaz Lead PurposeI InitialNormalUniversity Hospitals Beachwood Medical CenterComment on above:Performed By: #### [id number] #### [facility] [address], [place] [address]Mn Patient ?2 NoNCleveland [facility] Medina [facility] Comment on above:Performed By: #### [id number] #### [facility] [address], [place] [address]Tpbreyqmjxk 20-80-8003Gsjqanrsl [Mass/Vol]2.2 mg/dLNormal 1.3-2.4FOhioHealth Mansfield HospitalComment on above:Performed By: #### [id number] #### [facility] [address], [place] [address]FOD Totalon 51-84-9521Bkoxhhkt specific Ag [Mass/Vol]0.8 ng/mL Normal0.1-3.5FOhioHealth Mansfield HospitalComment on above:Result Comment: The concentration of PSA determined by different manufacturers can vary due to diffe rences in assay methods and reagent specificity. Values obtained from different assay methods cannot be used interchangeably. The methodology used for this result was chemiluminescence using [employer]'s Access Hybritech PSA reagent.Performed By: #### [id number] #### [facility] [address], [place] [address]Zlzo Acidon 10-14-7706Rijdo [Mass/Vol]5.1 mg/dLNormal2.2-7.4 [facility] CenterComment on above:Performed By: #### [id number] #### [facility] [address], [place] [address]yIQPqn 91-08-0254fBPH71 mL/min/1.73 m2Low>=59[facility] CenterComment on above:Performed By: #### [id number] #### [facility] [address], [place] [address]Pbbzgaydro - Hematology and Cell countson 99-11-5033YqP5l (Bld) [Mass fraction]8.9 %[facility] HealthcareNo Panel Informationon 43-57-8586FAYR HealthcareALL BASIC METABOLIC PANELon 98-71-5175Xkudq gap [Moles/Vol]9.8 mmol/L [facility] HealthcareCalcium [Mass/Vol]9.6 mg/dL8.5 - 10.1 mg/dLNOME Healthcare Chloride [Moles/Vol]99 mmol/L98 - 107 mmol/LNOMS HealthcareCO2 [Moles/Vol]27.9 mmol/L21.0 - 32.0 mmol/LNOMS HealthcareCreatinine [Mass/Vol]1.39 mg/dLHigh0.70 - 1.30 mg/dLNOME HealthcareGFR/1.73 sq M.predicted CKD-EPI (S/P/Bld) [Vol rate/Area]>6060 - PINFNOMS HealthcareGlucose [Mass/Vol]349 mg/eQMnsd44 - 106 mg/dLNOME HealthcareInterpretation and review of laboratory resultsAbnormalNOME HealthcarePotassium [Moles/Vol]4.7 mmol/L3.5 - 5.1 mmol/LNOMS HealthcareSodium [Moles/Vol]132 mmol/XEyg269 - 145 mmol/LNOMS HealthcareTBH EGFR-NON AF [place] 69Nle46 - PINFNOMS HealthcareUrea nitrogen [Mass/Vol]23.0 mg/dLHigh7.0 - 18.0 mg/dLNOMS HealthcareUrea nitrogen/Creatinine [Mass ratio]16.5 mg/mgNOMS HealthcareCLINISYNCNOMS HealthcareALL BASIC METABOLIC PANELon 24-50-1497Ecice gap [Moles/Vol]17.0 mmol/LNOMS HealthcareCalcium [Mass/Vol]9.3 mg/dL8.5 - 10.1 mg/dLNOMS HealthcareChloride [Moles/Vol]102 mmol/L98 - 107 mmol/LNOMS Healthcare CO2 [Moles/Vol]23.5 mmol/L21.0 - 32.0 mmol/LNOMS HealthcareCreatinine [Mass/Vol] 1.54 mg/dLHigh0.70 - 1.30 mg/dLNOMS HealthcareGFR/1.73 sq M.predicted CKD-EPI (S/P/Bld) [Vol rate/Area]34Jhm01 - PINFNOMS HealthcareGlucose [Mass/Vol]337 mg/oLXocq51 - 106 mg/dLNOME HealthcareInterpretation and review of laboratory resultsAbnormalNOME HealthcarePotassium [Moles/Vol]4.5 mmol/L3.5 - 5.1 mmol/L N[facility] HealthcareSodium [Moles/Vol]138 mmol/L136 - 145 mmol/LNOMS HealthcareTBH EGFR-NON AF GMJOCTLV88Ffx52 - PINFNOMS HealthcareUrea nitrogen [Mass/Vol]25.0 mg/dLHigh7.0 - 18.0 mg/dLNOME HealthcareUrea nitrogen/Creatinine [Mass ratio] 16.2 mg/mgNOMS HealthcareCLINISYNCNBEAVER COUNTY [facility] HealthcareRT PULMONARY FUNCTION TESTon 13-63-7898O[address] [address] Respiratory Report Signed Patient: LUCIO MADRIGAL MR#: [id number] : 1950 Acct:[id number] Age/Sex: 73 / M ADM Date: 05/27/24 Loc: CARD Attending Dr: Gigi Baer D.O. Ordering Physician: Gigi Baer D.O. Date of Service: 05/27/24 Procedure(s): RT pulmonary function test Accession Number(s): [id number] cc: [facility] Test Date: 2024-05-27 Pat Name: LUCIO MADRIGAL Department: Room: - Gender: Male Home Health Attendant: Nara Walker RRT : 1950 Requested By: Gigi Baer Order Number: [id number] Reading MD: Gigi Baer Interpretive Statements Pulmonary function testing was completed according to ATS criteria. Findings were considered accurate and reproducible. Both pre- and post-bronchodilator values utilized for spirometry. Spirometry (based on pre-bronchodilator values): -FEV1/FVC: Low normal @ 72% -FEV1: Normal @ 81% -FVC: Normal @ 82% -MKE97-48%: Reduced @ 76% -There is no significant [...] Signed By: 05/27/24 1706 DD/ 0816 TD/TT: Dermatology Specialist:TBHRadiology, Radiologist, - 05/27/2024 [place] [address] Respiratory Report Signed Patient: LUCIO MADRIGAL MR#: [id number] : 1950 Acct:[id number] Age/Sex: 73 / M ADM Date: 05/27/24 Loc: CARD Attending Dr: Gigi Baer D.O. Ordering Physician: Gigi Baer D.O. Date of Service: 05/27/24 Procedure(s): RT pulmonary function test Accession Number(s): [id number] cc: [facility] Test Date: 2024-05-27 Pat Name: LUCIO MADRIGAL Department: Room: - Gender: Male Home Health Attendant: Nara WalkerWOOD BARREL RECONDITIONER : 1950 Requested By: Gigi Baer Order Number: [id number] Reading MD: Gigi Baer Interpretive Statements Pulmonary function testing was completed according to ATS criteria. Findings were considered accurate and reproducible. Both pre- and post-bronchodilator values utilized for spirometry. Spirometry (based on pre-bronchodilator values): -FEV1/FVC: Low normal @ 72% -FEV1: Normal @ 81% -FVC: Normal @ 82% -LZU10-99%: Reduced @ 76% -There is no significant [...] Signed By: 05/27/24 1706 DD/ 0816 TD/TT: Dermatology Specialist: TAMARA HealthcareRadiology Study observation (narrative)NOMS HealthcareRT PULMONARY FUNCTION TESTOrdered By: Radiologist Radiology on 77-42-8222SQGT Healthcare Work Phone: ca ECHO DOPPLER COMPLETEon 94-70-0430Iat [place] [id number] Cardiology Report Signed Patient: LUCIO MADRIGAL MR#: [id number] : 1950 Acct:[id number] Age/Sex: 73 / M ADM Date: 12/20/23 Loc: CARD Attending Dr: Pantera Tomlin M.D. Ordering Physician: Pantera Tomlin M.D. Date of Service: 12/20/23 Procedure(s): CA echo doppler complete Accession Number(s): [id number] cc: KYLEIGH ZAMARRIPAEL ; Pantrea Tomlin M.D. Patient Name: LUCIO MADRIGAL MR#: [id number] : 1950 Exam Date: 12/20/2023 Ordering Doctor: [...] content not included)...TBHRadiology, Radiologist, - 12/22/[address] [address] Cardiology Report Signed Patient: LUCIO MADRIGAL MR#: [id number] : 1950 Acct:[id number] Age/Sex: 73 / M ADM Date: 12/20/23 Loc: CARD Attending Dr: Pantera Tomlin M.D. Ordering Physician: Pantera Tomlin M.D. Date of Service: 12/20/23 Procedure(s): CA echo doppler complete Accession Number(s): [id number] cc: ANTONY ZAMARRIPA ; Pantera Tomlin M.D. Patient Name: LUCIO MADRIGAL MR#: [id number] : 1950 Exam Date: 12/20/2023 Ordering Doctor: [...] Signed By: 12/22/23 1520 DD/ 1519 TD/TT: Dermatology Specialist: TAMARA HealthcareRadiology Study observation (narrative)[facility] CenterCA ECHO DOPPLER COMPLETEOrdered By: Radiologist Radiology on 97-26-8773NLAU [employer] Work Phone: us ABD AORTA DIAGNOSTICon 01-34-8228HQ ABD AORTA DIAGNOSTICEXAM: US ABD AORTA DIAGNOSTIC [...] Electronically authenticated by: MODE GARAY Date: 2022-12-27 15:45[facility] CenterUS ABD AORTA DIAGNOSTICon 15-15-0792GO ABD AORTA DIAGNOSTIC EXAMINATION: US ABD AORTA [...] authenticated by: LUIS MANUEL MCCORMICK Date: 2022-01-16 07:21[facility] Vital Signs Date TimeVital SignValuePerforming HxkfouyuoYxwleffj11-23-7851 10:26-0400Body akdomg807.3 cmDaniflorinda Zamarripa MD Work Phone: NOShriners Hospitals for ChildrenQnmhrmcyex96-69-4856 10:26-0400Body mass index (BMI) [Ratio]32.5 kg/m5FourilAntony Zamarripa MD Work Phone: NOShriners [facility]als for ChildrenGxxtmndvnp16-61-3652 10:26-0400Body lrflpe856.69 kgAntony Zamarripa MD Work Phone: NOShriners [facility]als for ChildrenQzkargfnnh52-19-7123 10:26-0400Diastolic blood mm[Hg]Antony Zamarripa MD Work Phone: NOShriners [facility]als for ChildrenRpswonpzpk99-98-1179 10:26-0400Heart rate69 /min Antony Zamarripa MD Work Phone: NOShriners Hospitals for ChildrenOnultkfyny43-45-7838 10:26-6395IiK6% (BldA) [Mass fraction]96 %Antony Zamarripa MD Work Phone: NOShriners Hospitals for ChildrenZckdeyzeve09-99-9503 10:26-0400Systolic blood wfzmdanu379 mm[Hg]Antony Zamarripa MD Work Phone: NOShriners [facility]als for ChildrenZleaxbiwug62-57-8906 10:15-0500Body dblemb917.3 cmAntony Zamarripa MD Work Phone: NOShriners [facility]als for ChildrenTickjtftky37-02-4652 10:15-0500Body mass index (BMI) [Ratio]33.47 kg/p0UhhbpnAntony Zamarripa MD Work Phone: [phone] Hospitals for ChildrenTyhpxzmpyf86-81-2109 10:15-0500Body jliiiy925.86 kgAntony Zamarripa MD Work Phone: NOShriners [facility]als for ChildrenHicveivwbv63-57-3329 10:15-0500Diastolic blood pelzrphc64 mm[Hg]Antony Zamarripa MD Work Phone: NOShriners [facility]als for ChildrenBpqikiivcw45-19-6395 10:15-0500Heart rate82 /min Antony Zamarripa MD Work Phone: NOShriners Hospitals for ChildrenDzdzfpeysl34-08-8228 10:15-7550OaS4% (BldA) [Mass fraction]96 %Antony Zamarripa MD Work Phone: [facility] CenterEsymfylacy78-58-9706 10:15-0500Systolic blood julpomuc382 mm[Hg]Antony Zamarripa MD Work Phone: [facility] CenterNyyctclxqy17-77-5432 16:01-0500Body .9 cmNicole Dinorah DO Work Phone: noShriners Hospitals for ChildrenArjlocvksp30-61-4679 16:01-0500Body mass index (BMI) [Ratio]33.12 kg/k3Xtcgpq Dinorah DO Work Phone: [facility] CenterQxjhcmczrb60-62-5448 16:01-0500Body ppapzk240.77 kgNicole Dinorah DO Work Phone: [facility] CenterAjemwwuqex59-31-2985 16:01-0500Diastolic blood eggwsqcm62 mm[Hg]Bennie Dinorah DO Work Phone: noShriners Hospitals for ChildrenJxdiytjpdg31-77-0097 16:01-0500Heart rate74 /min Bennie Dinorah DO Work Phone: [facility] CenterCrrieufvzw21-98-9804 16:01-5601BvV3% (BldA) [Mass fraction]96 %Bennie Dinorah DO Work Phone: noShriners Hospitals for ChildrenCrcfzgsauh98-73-9724 16:01-0500Systolic blood vinfhqfr836 mm[Hg]Bennie Dinorah DO Work Phone: [facility] CenterNhuscfcrro24-84-6061 11:40-0500Body temperature 98.06 [degF]Mhd Al-[facility]12-09-2024 11:40-0500 Diastolic blood xvmhooxj37 mm[Hg]Mhd [facility]raw[facility]12-09-2024 11:40-0500Heart rate83 /minMhd Al-[facility]rawi [facility]12-09-2024 11:40-0500Mean blood ecnomfzn69 mm[Hg]Mhd [facility]raw[facility]12-09-2024 11:40-0500 Respiratory rate16 /minMhd Al-Marrawi [address] [place], [place] [address]12-09-2024 11:40-3752DsF1% (BldA) [Mass fraction]96 %Mhd Al-Marrawi [address] [place], [place] [address]12-09-2024 11:40-0500 Systolic blood btncpdbe047 mm[Hg]Mhd Al-Marrawi [address] [place], [place] 80[address]11-18-2024 13:37-0500Body agruvyrjzsl98.52 [degF]Mhd Me-Marrawi [address] [place], [place] [address]11-18-2024 13:37-0500 Diastolic blood qukfkloj86 mm[Hg]Mhd Al-Marrawi [address] [place], [place] [address]11-18-2024 13:37-0500Heart rate70 /minMhd Al-Marrawi [address] [place], [place] [address]11-18-2024 13:37-0500Mean blood yabwoosy486 mm[Hg]Mhd Al-Marrawi [address] [place], [place] [address]11-18-2024 13:37-0500 Respiratory rate18 /minMhd Al-Marrawi [address] [place], [place] [address]11-18-2024 13:37-2615FqK4% (BldA) [Mass fraction]97 %Mhd Al-Marrawi [address] [place], [place] [address]11-18-2024 13:37-0500 Systolic blood jolmwity910 mm[Hg]Mhd Al-Marrawi [address] [place], [place] [address]11-12-2024 16:13-0500Body wabpbh185.3 cmNicole Dinorah DO Work Phone: [facility] CenterWnlmqfiiff04-54-7959 16:13-0500Body mass index (BMI) [Ratio]33.31 kg/p6Ncocnv Dinorah DO Work Phone: [facility] CenterKbiiumojgo84-48-0766 16:13-0500Body hbvlir528.32 kgNicole Dinorah DO Work Phone: [place] [address]Kxkpjqkoyn19-75-1819 16:13-0500Diastolic blood eqdifgcu08 mm[Hg]Bennie Dinorah DO Work Phone: [facility] CenterYiqcyqgalk18-34-6360 16:13-0500Heart rate65 /min Bennie Dinorah DO Work Phone: [place] [address]Anqflquujx99-68-4887 16:13-1902ElK3% (BldA) [Mass fraction]95 %Bennie Dinorah DO Work Phone: LFShriners Hospitals for ChildrenKrwsjlezjc72-03-3138 16:13-0500Systolic blood ukqpscvc174 mm[Hg]Bennie Dinorah DO Work Phone: [facility] CenterEhatwefddj63-28-1966 10:52-0500Body luvcnn595.3 cmAntony Zamarripa MD Work Phone: [facility] CenterXsaihhdtmg62-05-9167 10:52-0500Body mass index (BMI) [Ratio]33.33 kg/l3BnjllkAntony Zamarripa MD Work Phone: [place] [phone] 10:52-0500Body .41 kgAntony Zamarripa MD Work Phone: [facility] CenterOievbmbsgr72-00-5361 10:52-0500Diastolic blood iestdnaq40 mm[Hg]Antony Zamarripa MD Work Phone: [place] [address]Pikzrtuyil62-20-4031 10:52-0500Heart rate79 /min Antony Zamarripa MD Work Phone: [place] [address]Ewpqjagwef45-21-7028 10:52-0109TsL1% (BldA) [Mass fraction]97 %Antony Zamarripa MD Work Phone: [place] [address]Xrzactgiua58-87-3168 10:52-0500Systolic blood jfqxgymr939 mm[Hg]Antony Zamarripa MD Work Phone: [facility] CenterQatldiuysj46-08-0612 11:20-0400Body elgzxh958.3 cmAnotny Zmaarripa MD Work Phone: NOShriners Hospitals for ChildrenOawuxdzjzs86-03-2533 11:20-0400Body mass index (BMI) [Ratio]33.61 kg/p2DdxetqAntony Zamarripa MD Work Phone: [facility] CenterSeturrlcdw24-81-3130 11:20-0400Body .32 kgAntony Zamarripa MD Work Phone: [facility] CenterKkgtnecwmd75-17-7918 11:20-0400Diastolic blood wtmtgixl89 mm[Hg]Antony Zamarripa MD Work Phone: [phone] CenterEbcnzkuzhn56-41-1126 11:20-0400Heart rate65 /min Antony Zamarripa MD Work Phone: [facility]OS[facility]als for ChildrenVmrsirojjc65-17-3994 11:20-4738AqE5% (BldA) [Mass fraction]94 %Antony Zamarripa MD Work Phone: [facility] CenterRbchksopok02-35-0607 11:20-0400Systolic blood rspjitcz119 mm[Hg]Antony Zamarripa MD Work Phone: [facility] CenterSxilcpybqq98-20-4576 15:39-0400Diastolic blood elykfwvg77 mm[Hg]Bennie Perdomo DO Work Phone: [facility]OShriners [facility] for ChildrenIgonnrqkyq82-29-5919 15:39-0400Systolic blood fhgwqcwa434 mm[Hg]Bennie Perdomo DO Work Phone: [facility] Encounters Encounter DateEncounter TypeCare ProviderFacilityStart: 08-13-2025 End: 25-20-7992Cjpjhliiy Result EncounterGeneric External Data ProviderNOMS External Department UnsolicitedStart: 08-13-2025 End: 82-05-9761Nelwlumsc Result EncounterGeneric External Data ProviderNOMS External Department UnsolicitedStart: 08-07-2025 End: 19-15-5599ierydzuqukTSLGKGalion Hospitaltart: 07-27-2025 End: 67-93-9143Zatwwl Jeanna Zamarripa MD Work Phone: noms [place] Siddiqui MedinceStart: 07-27-2025 End: 94-94-6819Tvlryo Jeanna Zamarripa MD Work Phone: noms [place] Siddiqui MedinceStart: 07-27-2025 End: 48-07-3612Iovzz of hemosiderin, quantAntony Zamarripa MD Work Phone: noms HealthcareStart: 07-27-2025 End: 34-01-7459Lihtibv encounter procedureDacara Zamarripa MD Work Phone: noms [place] Siddiqui MedinceComment on above:Routine general medical examination at health care facility (Primary Dx); ACP (advance care planning); Encounter for immunization; Type 2 diabetes mellitus with diabetic neuropathy, without long-term current use of insulin (HCC); Paroxysmal atrial fibrillation (HCC); Mixed hyperlipidemia ; Primary hypertension ; 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); Diastolic dysfunction; Benign essential hypertension ; Prostate cancer screening; Degeneration of intervertebral disc of lumbar region with discogenic back pain and lower extremity pain; Memory lossStart: 07-27-2025 End: 62-31-6258ewymqqfudhLMUZBV B BERRYNot AvailableStart: 05-18-2025 End: 00-25-7602Omeeszrfe Result EncounterGeneric External Data ProviderNOMS External Department UnsolicitedStart: 05-18-2025 End: 64-20-0810Fnaraldtq Result EncounterGeneric External Data ProviderNOMS External Department UnsolicitedStart: 11-17-2024 End: 63-78-5430urbyrcbwtyNBNGHGalion Hospitaltart: 11-12-2024 End: 37-08-4091Idwpzy outpatient visit 25 minutesAntony Zamarripa MD Work Phone: noms CI FMComment on above:Type 2 diabetes mellitus with hyperglycemia, without long-term current use of insulin (CMS/HCC); Dncwj-5-lrjlrrssnrj deficiency (CMS/HCC); Other emphysema (CMS/HCC); Parkinsonism, unspecified (CMS/HCC); Type 2 diabetes mellitus with diabetic chronic kidney disease (CMS/HCC); Chronic kidney disease, stage 3a (HCC) (CMS/HCC); Paroxysmal atrial fibrillation (CMS/HCC); Type 2 diabetes mellitus with diabetic neuropathy, unspecified (CMS/HCC)Start: 11-12-2024 End: 31-63-7229wwqpmnpoeaIOMAPW B BERRYNot AvailableStart: 11-11-2024 End: 66-85-1963Padbtq outpatient visit 25 minutesNicole Dinorah DO Work Phone: aNA Yamilet on above:Tremor (Primary Dx); Left foot drop; Memory loss; Numbness and tingling; B12 deficiency; Folic acid deficiency; JESS (obstructive sleep apnea)Start: 11-11-2024 End: 67-28-3584eitrjskbduOQRDTD DANNERNot AvailableStart: 11-11-2024 End: 17-70-3862Fdujsb flowsheetNicole Dinorah DO Work Phone: ana IJMKStart: 11-11-2024 End: 87-54-2917Vruqmc flowsheetNicole Dinorah DO Work Phone: ana JIMKStart: 10-13-2024 End: 20-42-3490iltombfmuaYqf Yaser Al-MarrawiFacility:FTMCStart: 10-13-2024 End: 58-33-7456Nxtpshu encounter procedureMhd Yaser Al-Marrawi [facility] Start: 09-25-2024 End: 36-33-0253jeourppgddCzp Yaser Al-MarrawiFacility:FTMCStart: 09-25-2024 End: 49-00-3827Ycb Drop offMhd Yaser Al-Marrawi [facility] Start: 09-22-2024 End: 94-49-5953xvffayczleCsx Yaser Al-MarrawiFacility:FTMCStart: 09-22-2024 End: 47-28-1767Vklmiet encounter procedureMhd Jannethyanna Rocha [facility] Start: 09-16-2024 End: 08-91-2134Hbthci outpatient visit 25 minutesNicole Dinorah DO Work Phone: NOCC NE NEUROComment on above:Left foot drop (Primary Dx); Parkinsonism, unspecified Parkinsonism type (CMS/HCC); Essential tremor; Diabetic peripheral neuropathy associated with type 2 diabetes mellitus (CMS/HCC); B12 deficiency; Numbness and tingling; Memory lossStart: 09-16-2024 End: 50-28-1770usvvxssyzyXPWZUR DANNERNot AvailableStart: 09-16-2024 End: 14-71-2480Dwmdkv flowsheetNicole Dinorah DO Work Phone: noms NE NEUROStart: 09-16-2024 End: 70-28-8239Jqlhsc flowsheetNicole Dinorah DO Work Phone: NOMS NE NEUROStart: 09-11-2024 End: 85-06-0466Cdfddn outpatient visit 25 minutesAntony Zamarripa MD Work Phone: NOMS CI FMComment on above:Uncontrolled type 2 diabetes mellitus with hyperglycemia (CMS/HCC) (Primary Dx); Diabetic peripheral neuropathy associated with type 2 diabetes mellitus (CMS/HCC); Iwlql-5-cceotxewenp deficiency (CMS/HCC); Type 2 diabetes mellitus with diabetic chronic kidney disease (CMS/HCC); Chronic kidney disease, stage 3a (HCC) (CMS/HCC); Abdominal aortic aneurysm, without rupture, unspecified (CMS/HCC); 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 (CMS/HCC)Start: 09-11-2024 End: 88-23-5263wzemymdplyLMJRHN B BERRYNot AvailableStart: 20-01-5285izsxzdffgn [facility] AjFacility:FTMCStart: 08-14-2024 End: 98-84-4170IwihmsUliddjfd Yuri [address] STATE ROUTEComment on above: Memory loss; Tremor; Parkinsonism, unspecified Parkinsonism type (CMS/HCC); B12 deficiency; Folic acid deficiencyStart: 08-07-2024 End: 13-41-1432Fqfgct Jeanna Zamarripa MD Work Phone: NOMS CI FMStart: 08-07-2024 End: 54-27-5855Ztvozj Jeanna Zamarripa MD Work Phone: NOMS CI FMStart: 08-07-2024 End: 76-29-7702jkdawoogiiWEKYQV B BERRYNot AvailableStart: 08-07-2024 End: 15-20-6897Tgcwxb outpatient visit 25 minutesAntony Zamarripa MD Work [...] ventricular hypertrophy); Prostate cancer screeningStart: 07-31-2024 End: 66-88-3002Bkszqgrxr Result EncounterGeneric External Data ProviderNOMS External Department UnsolicitedStart: 07-31-2024 End: 05-42-6676Ziqwaxftg Result EncounterGeneric External Data ProviderNOMS External Department UnsolicitedStart: 07-28-2024 End: 62-05-4293Tpiwrg outpatient visit 25 minutesNicole Dinorah DO Work Phone: [facility] ROUTEComment on above:Tremor (Primary Dx); Parkinsonism, unspecified Parkinsonism type (CMS/HCC); Essential tremor; Diabetic peripheral neuropathy associated with type 2 diabetes mellitus (CMS/HCC); Memory loss; Numbness and tingling; Balance disorderStart: 07-28-2024 End: 32-39-9155ldqjyxurwfGLTPLY DANNERNot AvailableStart: 07-28-2024 End: 81-02-2779Undqzq flowsheetNicole Dinorah DO Work Phone: no[facility] ROUTEStart: 07-28-2024 End: 55-61-2976Wobdbw flowsheetNicole Dinorah DO Work Phone: noms [facility] ROUTEStart: 07-02-2024 End: 57-47-9592Ssbekmlge Result EncounterGeneric External Data ProviderNOMS External Department UnsolicitedStart: 07-02-2024 End: 30-74-9705Lsscvgbag Result EncounterGeneric External Data ProviderNOMS External Department UnsolicitedStart: 05-27-2024 End: 24-16-0669Qrifcjhwt Result EncounterGeneric External Data ProviderNOMS External Department UnsolicitedStart: 05-27-2024 End: 44-48-5596Ppgrbhjvw Result EncounterGeneric External Data ProviderNOMS External Department UnsolicitedStart: 12-22-2023 End: 10-37-2934Rrziphuxb Result EncounterGeneric External Data ProviderNOMS External Department UnsolicitedStart: 12-22-2023 End: 32-81-5126Mlrkziues Result EncounterGeneric External Data ProviderNOMS External Department UnsolicitedStart: 12-27-2022 End: 97-41-7735fgvhlbvuszAKOBQSR TUCKERFacility:M8Ftoeb: 01-14-2022 End: 57-42-1686dhyjrkxagsDPAHNNG BOESFacility:B0Uqokq: 07-15-2018 End: 66-20-1718Tpauopx encounterDEFAULT PHYSICIANFacility:[facility]ENTERtart: 06-11-2018 End: 47-08-0502Gmrdwea encounterDEFAULT PHYSICIANFacility:[facility] Procedures DateProcedureProcedure DetailPerforming ClinicianStart: 82-57-8681CI ECHO DOPPLER COMPLETEGeneric External Data ProviderStart: 55-71-2176Ndriggdiia glycosylated e0bSzrwgccara Zamarripa MD Work Phone: Start: 22-12-1521Sz abdominal aorta real time screen study aaaGeneric External Data ProviderStart: 19-20-4242Kmtctsgzyw glycosylated q8mXkmheucara Zamarripa MD Work Phone: Start: 57-84-6026Pkjxflbhrg glycosylated g1rIkqlepcara Zamarripa MD Work Phone: Start: 98-87-3415ZRQ BASIC METABOLIC PANELGeneric External Data ProviderStart: 81-28-8515NFD BASIC METABOLIC PANELGeneric External Data ProviderStart: 30-64-6484OM PULMONARY FUNCTION TESTGeneric External Data ProviderStart: 71-37-3181EK ECHO DOPPLER COMPLETEGeneric External Data Provider Start: 15-58-8995LipfzhxoplNjr Pharnext Comment on above:Cysto/REZUM 02/06/2019AppendectomyMhd Pharnext ColonoscopyMhd Pharnext Elbow region structure (body structure)d Pharnext Plan of Treatment DateCare ActivityDetailAuthorStart: 09-22-2026Medicare Annual Wellness (AWV) Medicare Annual Wellness (AWV)NOMS HealthcareStart: 10-75-6645Ayoypfak screening Diabetes: Retinopathy ScreeningNOME HealthcareStart: 97-85-3743Zwcrv screening for proteinDiabetes: Urine Protein ScreeningNOME HealthcareStart: 10-26-2025 Hemoglobin A1c measurementDiabetes: Hemoglobin G4QDLYF HealthcareStart: 10-05-2025 End: 30-10-9382Rrgsswu encounter odkivgzwh62/01/2025 10:00 AM EST [facility] [address] [facility] [address] [place] [address] Antony Zamarripa MD [address] [facility] [address] [place] [address] [facility] [facility]estonnceStart: 08-19-2025 Urine screening for proteinDiabetes: Urine Protein ScreeningNOME Healthcare Start: 26-30-9621Bkqmzdkxy for malignant neoplasm of colonNOME HealthcareStart: 07-27-2025 End: 88-54-0374Epeguskxqygtf metabolic 2000 panel - Serum or PlasmaComprehensive metabolic panel Lab Routine Type 2 diabetes mellitus with diabetic neuropathy, without long-term current use of insulin (HCC) Paroxysmal atrial fibrillation (HCC) Expected: 07/27/2025 (Approximate), Expires: 07/27/2026[facility] Comment on above:Expected: 07/27/2025 (Approximate), Expires: 07/27/2026Start: 07-27-2025 End: 76-93-8938Dxcik 1996 panel - Serum or PlasmaLipid panel Lab Routine Mixed hyperlipidemia Expected: 07/27/2025 (Approximate), Expires: 07/27/2026[facility] HealthcareComment on above:Expected: 07/27/2025 (Approximate), Expires: 07/27/2026Start: 07-27-2025 End: 49-16-7715CRO W/REFLEX TO FT4TSH W/REFLEX TO FT4 Lab Routine Type 2 diabetes mellitus with diabetic neuropathy, without long-term current use of insulin (HCC) Paroxysmal atrial fibrillation (HCC) Expected: 07/27/2025 (Approximate), Expires: 07/27/2026[facility] HealthcareComment on above:Expected: 07/27/2025 (Approximate), Expires: 07/27/2026Start: 07-27-2025 End: 92-67-7184Sxugoeo encounter /22/2025 10:30 AM EDT [facility] [address] [facility] [address] [place] [address] Antony Zamarripa MD [address] [facility] [address] [place] [address] ArrivedNOME [place] [facility] EglestonnceComment on above:ArrivedStart: 68-34-1172Affnijuxj vaccinationInfluenza Vaccine (#1)NOMS HealthcareStart: 52-99-0464Iodsmoex screeningDiabetes: Retinopathy Screening NOMS HealthcareStart: 76-77-0311Saszawymtc A1c measurementDiabetes: Hemoglobin J5TVPQR HealthcareStart: 01-13-2025 End: 61-88-4875Xwxgigk encounter zwilnnynf35/11/2025 3:40 PM EDT Office Visit [facility] [address] [place] [address] Fanny Gottlieb NP [address] [place] IVAN BELLEVUEStart: 11-12-2024 End: 09-89-5711Ypkoyvy encounter sunafxdxh60/08/2025 10:15 AM EST Office Visit [facility] [address] [facility] [address] [place] [phone] Antony Zamarripa MD [address] [facility] [address] [place] [address] NOMS CI FMStart: 11-11-2024 End: 20-64-8716Wwlytvj encounter xyqveunzm12/07/2025 3:45 PM EST Office Visit [facility] [address] [place] [address] Bennie Perdomo, DO [address] [place] [address] NOMS NE NEUROStart: 90-15-3473Jixmrimadx A1c measurementDiabetes: Hemoglobin I5JWZLL HealthcareStart: 09-16-2024 End: 41-65-7448Xipfoto encounter pgpaefoan19/12/2024 4:15 PM EST Office Visit [facility] [address] [place] [address] Bennie Perdomo, DO [address] [place] [address] NOMS NE NEUROStart: 09-11-2024 End: 71-88-7275Goqefgw encounter wtlmevpic87/07/2024 11:00 AM EST Office Visit [facility] [address] [facility] [address] [place] [address] Antony Zamarripa MD [address] [place] [address] NOMS CI FMStart: 74-17-6082Drmyv screening for protein Diabetes: Urine Protein ScreeningACADIA HEALTHCARE HealthcareStart: 08-15-2024 End: 35-36-0180Cyeqoovigzcrx metabolic 2000 panel - Serum or PlasmaComprehensive metabolic panel Lab Routine Uncontrolled type 2 diabetes mellitus with hyperglycemia (CMS/HCC) Expected: 08/15/2024 (Approximate), Expires: 08/15/2025 NOMS HealthcareComment on above:Expected: 08/15/2024 (Approximate), Expires: 08/15/2025Start: 08-15-2024 End: 35-47-9369Hztya 1996 panel - Serum or PlasmaLipid panel Lab Routine Mixed hyperlipidemia (CMS/HCC) Expected: 08/15/2024 (Approximate), Expires:08/15/2025 NOMS HealthcareComment on above:Expected: 08/15/2024 (Approximate), Expires: 08/15/2025Start: 07-28-2024 End: 22-49-6779Aqtcogm encounter procedureNOBELLEVUE HOSPITAL ROUTEComment on above:ArrivedStart: 09-21-2024Medicare Annual Wellness (AWV)Medicare Annual Wellness (AWV)[facility] HealthcareStart: 50-83-1309Sjsksrgmn vaccinationInfluenza Vaccine (#1)[facility] HealthcareStart: 56-15-6916Joogtmmfgn A1c measurementDiabetes: Hemoglobin H2BFOOV HealthcareStart: 22-12-8705Xjevnhyej for malignant neoplasm of colonNOME HealthcareCBC W Auto Differential panel - BloodCBC and differential Lab Routine Uncontrolled type 2 diabetes mellitus with hyperglycemia (CMS/HCC) Ordered: 08/15/2024[facility] HealthcareComment on above:Ordered: 08/15/2024BC W Auto Differential panel - BloodCBC and differential Lab Routine Type 2 diabetes mellitus with diabetic neuropathy, without long-term current use of insulin (HCC) Paroxysmal atrial fibrillation (HCC) Ordered: 07/27/2025[facility] Work Phone: Comment on above:Ordered: 07/27/2025 Microalbumin/Creatinine panel in random UrineMicroalbumin / creatinine urine ratio Lab Routine Type 2 diabetes mellitus with hyperglycemia, without long-term current use of insulin (CMS/HCC) Ordered: 08/15/2024[facility] HealthcareComment on above:Ordered: 08/15/2024rostate specific Ag [Mass/volume] in Serum or Plasma PSA Lab Routine Prostate cancer screening Ordered: 08/15/2024[facility] Work Phone: Comment on above:Ordered: 08/15/2024rostate specific Ag [Mass/volume] in Serum or PlasmaPSA Lab Routine Prostate cancer screening Ordered: 07/27/2025[facility] CenterComment on above:Ordered: 07/27/2025 Immunizations Immunization DateImmunizationNotesDelaware Psychiatric Center JdjigsrgFzijdvyz91-96-6583oenmlkzcd, high dose seasonal, preservative-Alma Zamarripa MD Work Phone: [facility] CenterVutkjfpnve75-61-9183qfzspukze, high dose seasonal, preservative-freeBennie Perdomo DO Work Phone: [facility] CenterTvkcmqgyyn73-80-7025rbbrvkgld virus vaccine, unspecified formulationGeneric [facility] HospitalNlustduuua03-53-8368Hecxuaiod, Seasonal, Quadrivalent, AdjuvantedGeneric [facility] Work Phone: [phone] virus vaccine, unspecified formulationClermont County Hospitalric [facility] Memorial HospitalWqqlzllhav05-21-3997Jvdeflhuc, High-dose Seasonal, Quadrivalent, Preservative FreeClermont County Hospitalric [facility] 66-47-2949klpjdw vaccine recombinantClermont County Hospitalric [facility]09-11-2020 Influenza, High-dose Seasonal, Quadrivalent, Preservative FreeGeneric [facility] CenterXvskhkjksc26-36-7329kqupxndjcfpf conjugate vaccine, 13 valentGeneric [facility] HospitalApjupbuvfh81-57-9297kditpt vaccine recombinantGeneric [facility] HospitalNrjwsfjvre39-17-2187msiugceig, high dose seasonal, preservative-freeGeneric [facility] HospitalZxhqytumxy15-70-4235rcglxfgqvfyr polysaccharide vaccine, 23 valent Generic [facility] HospitalQhqqrhybcl10-94-6843tctavsdwq, injectable, quadrivalent, preservative freeClermont County Hospitalric [facility] HospitalZzwztysbhr30-45-3330mlnrbczjy, injectable, quadrivalent, preservative freeGeneric [facility]10-19-2016 influenza, injectable, quadrivalent, contains preservativeClermont County Hospitalric [facility] HospitalOhpbdsqntl96-74-0170whmprrkqi, injectable, quadrivalent, preservative free Generic [facility] HospitalTyfltzuivf72-65-6359wvzsisvw influenza, intradermal, preservative freeGeneric [facility] HospitalPmhxynmwqr78-98-8331zivomas and diphtheria toxoids, adsorbed, preservative free, for adult use (5 Lf of tetanus toxoid and 2 Lf of diphtheria toxoid)Generic [facility] Payers DatePayer CategoryPayerPolicy [id number] of Defense ( and others)[id number] of Defense ( and others) FOR LIFE [id number] 2022-Present [address] [place] [id number]44XEKFVVO () [id number]53279.804088.315 [id number] 2015Medicare1.2.840.808415.1.13.693.2.7.3.025382.67354-31-7799Vijegphpjg of Defense ( and others)[id number] [id number] 1950 [id number] 2.0.1.070147.3.57[id number] 2.840.1.502340.3.57[id number] 2.840.1.191118.3.57[id number] 2.16.840.1.037237.3.57[id number] 2.16.840.1.059790.3.579.[id number] 2.16.840.1.812592.3.579.2.[id number] 2.16.840.1.904559.3.57[id number] 2.16.840.1.147574.3.57[id number] 2.16.840.1.701932.3.579.2.176418-64-6351Xrktjxv9103925 2.16.840.1.890969.3.579.2.[id number] 2.16.840.1.929404.3.579.[id number] 2.16.840.1.047914.3.579.2.422048-54-9886Gpitalg7473098 2.16.840.1.130586.3.579.2.4891 [id number] 2.840.1.149258.3.579.2.[id number] 2.16840.1.731567.3.579.2.1259Unknown Social History DateTypeDetailFacilityStart: 11-20-2023 End: 78-07-1936Zdoqlma smoking status NHISEx-smokerNOMS HealthcareStart: 11-05-1972 End: 96-37-7633Jvliqip of tobacco useCurrent smokerNOMS HealthcareStart: 11-05-1972 End: 87-28-1959Ebihwpn of tobacco useCigarette SmokerNOME HealthcareStart: 07-25-2023 End: 19-63-9558Vwueocpaob smoked current (pack per day) - Reported1.5NOME HealthcareStart: 11-20-2023 End: 60-15-1875Gxaikxc use and exposureSmokeless tobacco non-userNOME Healthcare Start: 05-06-2024 End: 82-75-8049Vfzjjztus beverage intakeEx-drinker (finding)[facility] Start: 07-25-2023 End: 08-38-3941Yzqvizwbvkj, Afraid, Rape, and Kick questionnaire [HARK][facility] CenterWithin the last year, have you been afraid of your partner or ex-partner?NoNOMS HealthcareStart: 16-09-1654Dic often do you attend catholic or jewish services?Patient declinedNOMS HealthcareAre you now , , [...] got money to buy more.Never trueNOME HealthcareStart: 78-33-7451Lgmrpdn Commentcaffeine intake: more than 4 cups per day coffee, sodaNOMS HealthcareStart: 26-18-5948Fjo assigned at birthNot on file [facility] HealthcareStart: 15-52-6140Qknckya Commentcaffeine intake: more than 4 cups per daySaint Louis University Health [facility] Center Functional Status SgmyRwricjxsxeRrzsjrUnysswpi80-43-8970Mqpsovc Health Questionnaire 2 item (PHQ- 2) [Reported][facility] Clinical Notes 07-28-2024 to 08-07-2025 Note Date & DlnwQugvIigudomp06-04-7447 NoteUT Cardiology - [facility] Subjective Lucio Madrigal is a 75 [...] of both hands JESS (obstructive sleep apnea) Wjqhh-1-kopmksibfeh deficiency (CMS/HCC) Hypersomnia due to medical condition Hypersomnolence Hypertension Folic acid deficiency Dysuria Emphysema due to yxhns-2-erzvbvjcnyu deficiency (CMS/HCC) Feeling of incomplete bladder emptying [...] Disp: , Rfl: glimepirid (more content not included)...[facility] 07-27-2025 History of Present illness Narrative* [...] 40 mg by mouth in the morning. Seorqlk-Hkgzbpdracx-Qibkrveyot (Breztri Aerosphere) 160-9-4.8 MCG/ACT aerosol Inhale 2 [...] Do you have a medical power of brine tank operator?: Yes Who is your medical power of brine tank operator?: Objective : BP 126/68 Pulse 69 Ht [...] options. Greater than 25 minutes was spentin ixgp-fd-iiyf consultation and coordination of care. Assessment/Plan Diagnoses [...] panel; Future Primary hypertension Emphysema due to bosvi-7-lhnzvkglnlj deficiency (HCC) Diastolic dysfunction Benign essential hypertension [...] - Flu vaccine, high dose seasonal, PF (GER106) (Fluzone High Dose) Orders Placed This Encounter Procedures Flu vaccine, high dose seasonal, PF (ETV864) (Fluzone High Dose) POCT Glycated hemoglobin, total Electronically signed by Antony Zamarripa MD on July 27, 2025 documented in this encounterSaint Louis University Health Science CenterQotcopwxsr12-50-9418 NoteUT Cardiology - [facility] Subjective Lucio Madrigal is a 74 [...] of both hands JESS (obstructive sleep apnea) Yjlwx-9-zdktjvxdiva deficiency (CMS/HCC) Hypersomnia due to medical condition Hypersomnolence Hypertension Folic acid deficiency Dysuria Emphysema due to kfgnx-6-mvvyrarfswt deficiency (CMS/HCC) Feeling of incomplete bladder emptying [...] of breathing, no rales, (more content not included)...[facility]01-08-[facility] History of Present illness Narrative* Antony [...] 40 mg by mouth in the morning. Qfrmorc-Hdslxymghet-Qjvrxnorfx (Breztri Aerosphere) 160-9-4.8 MCG/ACT aerosol Inhale 2 [...] this fails he will likely need insulin. Usbzu-4-bjwfahglilr deficiency (CMS/HCC) - Seeing Dr Baer, getting [...] 12/24/2024) for DM- A1C. documented in this encounterSaint Louis University Health Science CenterAmflyrpybu58-23-2597 History of Present illness Narrative* Bennie Perdomo, [...] He thinks that it did help. His environmental attorney does not want him to stop any [...] stationarybike. Past Medical History: Diagnosis Date Afib ([facility]) Biceps tendinosis of right shoulder 09/14/2017 Bursitis, Labral Tear Brachial neuritis or radiculitis 07/06/2017 Collapsed lung 2006 fx hip d/t fall Diabetes mellitus, type 2 ([facility]) Disturbance of skin sensation 07/06/2017 Hypertension ([facility]) LVH (left ventricular hypertrophy) 05/29/2023 Mitral regurgitation [...] We need to get a download from [employer] as he got a new machine and he feels like it is too much pressure. We may need to change his settings and we need to check the compliance download. Plan: Continue with the PT Increase home exercises We will leave any further workup for a gammopathy to hematology Can consider AFO footdrop worsens We will get a download from [employer] and see if we can adjust his [...] clinic: 2 -3 months documented in this encounterSaint Louis University Health Science CenterIymlbxalst36-84-3449 NoteOncology Progress Note Chief Complaint Polyneuropathy; unsure [...] CTA, respirations non la (more content not included)...[facility]11-18-2024 NoteOncology Progress Note Chief Complaint New patient [...] foot drop while wa (more content not included)...[facility]11-12-2024 History of Present illness Narrative* Bennie Perdomo, [...] unable to use his cell phone. His environmental attorney does not want him to stop any [...] to clinic: 3 weeks documented in this encounterSaint Louis University [facility] Science [id number] History of Present illness Narrative* Antony Zamarripa [...] 40 mg by mouth in the morning. Rwpcrih-Dczqpjxwofp-Kxcgexccse (Breztri Aerosphere) 160-9-4.8 MCG/ACT aerosol Inhale 2 [...] by mouth Daily 90 tablet 3 [DISCONTINUED] Pbfdpeqjzzg-Vapyquiso-Uvnjup (Trelegy Ellipta) 100-62.5-25 MCG/ACT aerosol powder Inhale [...] Sibling Past Medical History: Diagnosis Date Afib (CMS/[facility]) Biceps tendinosis of right shoulder 09/14/2017 Bursitis, [...] compared to the equimolar-standardized total PSA (Celeste Lothair). Comparison of serial PSA results should be [...] LDL-C. Kayden ROMERO et al. MARK. 2013;310(19): 7649-1687 (http://education.[employer]/faq/DZQ287) CHOL/HDLC RATIO 08/19/2024 4.1 <5.0 (calc) Final [...] 0.70 - 1.30 mg/dL Final TBH EGFR-AF [place] 07/31/2024 >60 >=60 Final TBH EGFR-NON AF [place] 07/31/2024 50 (L) >=60 Final BUN CREATININE [...] associated with type 2 diabetes mellitus (CMS/HCC) Yvkqq-5-jdrkosmrlqt deficiency (CMS/HCC) - Per Dr Baer. He is receiving infusions for this. Type 2 diabetes mellitus with diabetic chronic kidney disease (CMS/HCC) Chronic kidney disease, stage 3a (HCC) (CMS/HCC) - Stable. Abdominal aortic aneurysm, without rupture, unspecified (CMS/HCC) Emphysema due to brrpj-3-bpjbfueyzve deficiency (CMS/HCC) Follow up in about 2 months (around 11/11/2024) for DM- A1C. documented in this encounterSaint Louis University Health Science [id number] Hospital Discharge instructions Follow Up Care 09/08/2024 11:39:31 With:Aj BUSH, Serenity Urbina, MED, ONC Address: When: Unknown Comments:Labs today.24 hour urine tests.RTC in 3 weeks for results. [facility] 10-10-2024 Telephone encounter Note* Telephone Encounter [...] to send to proper pharmacies. Thank you [facility] [id number] Miscellaneous Notes* Telephone Encounter - Yossi Welch [...] proper pharmacies. Thank you documented in this encounterSaint Louis University Health Science [id number] History of Present illness Narrative* Antony Zamarripa [...] the morning and 1 spray before bedtime. Sukuqmscwdv-Qtlrlzpto-Ricsfh (Trelegy Ellipta) 100-62.5-25 MCG/ACT aerosol powder Inhale [...] 0.70 - 1.30 mg/dL Final TBH EGFR-AF [place] 07/31/2024 >60 >=60 Final TBH EGFR-NON AF [place] 07/31/2024 50 (L) >=60 Final BUN CREATININE [...] Review, F/U med changes. documented in this encounterSaint Louis University Health Science [id number] History of Present illness Narrative* Bennie Perdomo, - 07/28/2024 3:15 PM EDT Subjective Pt. Is here with his . He stopped the amiodarone per cardiology as his A-fib is doing better since his ablation. The environmental attorney wanted to stop the amiodarone and see [...] unable to use his cell phone. His environmental attorney does not want him to stop any [...] wanted to take him off of the jisensxqja7on and see if that helps the tremor. [...] to clinic: 3 weeks documented in this encounterSaint Louis University Health Science CenterEvaluation + Plan note Future Appointments Appointment Date:10/13/2024 10:20:00 AM Scheduled Provider:Aj BUSH, Serenity Urbina Location:FT.ONCOLOGY Appointment Type:ONC Office Visit 20 (FT) Future Scheduled Tests Laboratory* Lab Miscellaneous-LC 09/23/24 * Lab Miscellaneous-LC 09/23/24 [facility] Evaluation + Plan note Future Appointments [...] 2 Microglobulin 09/22/24 * Comp panel: Leuk/Lym [id number] 09/22/24 * DONA and PE, Serum 09/22/24 * HCV Antibody RFX to Quant PCR 09/22/24 * Lead, Adult 09/22/24 * Copper Level 09/22/24 * Alpha Fetoprotein Tumor Marker 09/22/24 * Hep B Core Ab, IgM 09/22/24 * HIV Screen 4th Generation wRfx 09/22/24 * CA 19-9 09/22/24 * IgE, Quant 09/22/24 Future Scheduled Tests Laboratory* Lab Miscellaneous-LC 09/23/24 * Lab Miscellaneous-LC 09/23/24 [facility] Evaluation + Plan note Future Appointments Appointment Date:10/13/2024 10:20:00 AM Scheduled Provider:Aj BUSH, Serenity Urbina Location:FT.ONCOLOGY Appointment Type:ONC Office Visit 20 (FT) [facility] evaluation note* Diagnosis Memory loss Tremor Abnormal involuntary movements Parkinsonism, unspecified Parkinsonism type (CMS/HCC) B12 deficiency Folic acid deficiency Other B-complex deficiencies documented in this encounter [facility] HealthcareEvaluation note* Diagnosis Diabetic peripheral neuropathy associated [...] neoplasm of prostate documented in this encounter [facility] HealthcareEvaluation note* Diagnosis Uncontrolled type 2 diabetes mellitus with hyperglycemia (CMS/HCC)- Primary Diabetic peripheral neuropathy associated with type 2 diabetes mellitus (CMS/HCC) Qqmws-7-dpoznycxxca deficiency (CMS/HCC) Rtajp-9-sydgpyvcayh deficiency Type 2 diabetes mellitus with diabetic chronic kidney disease (CMS/HCC) Chronic kidney disease, stage 3a (HCC) (CMS/HCC) Abdominal aortic aneurysm, without rupture, unspecified (CMS/HCC) Emphysema due to lqqlr-9-ketnftojcov deficiency (CMS/HCC) Other emphysema documented in this encounter [facility] HealthcareEvaluation note* Diagnosis Left foot drop- Primary Other acquired deformity of ankle and foot Parkinsonism, unspecified Parkinsonism type (CMS/HCC) Essential tremor Diabetic peripheral neuropathy associated with type 2 diabetes mellitus (CMS/HCC) B12 deficiency Numbness and tingling Disturbance of skin sensation Memory loss documented in this encounter [facility] HealthcareEvaluation note* Diagnosis Tremor- Primary Abnormal involuntary movements Parkinsonism, unspecified Parkinsonism type (CMS/HCC) Essential tremor Diabetic peripheral neuropathy associated with type 2 diabetes mellitus (CMS/HCC) Memory loss Numbness and tingling Disturbance of skin sensation Balance disorder documented in this encounter [facility] HealthcareEvaluation note* Diagnosis Tremor- Primary Abnormal involuntary movements Left foot drop Other acquired deformity of ankle and foot Memory loss Numbness and tingling Disturbance of skin sensation B12 deficiency Folic acid deficiency Other B-complex deficiencies JESS (obstructive sleep apnea) Obstructive sleep apnea (adult) (pediatric) documented in this encounter [facility] HealthcareEvaluation note* Diagnosis Type 2 diabetes mellitus with hyperglycemia, without long-term current use of insulin (CMS/HCC) Xsyvb-7-wnxubbngaru deficiency (CMS/HCC) Evmdd-5-lgiuyozyfgi deficiency Other emphysema (CMS/HCC) Other emphysema Parkinsonism, unspecified (CMS/HCC) Type 2 diabetes mellitus with diabetic chronic kidney disease (CMS/HCC) Chronic kidney disease, stage 3a (HCC) (CMS/HCC) Paroxysmal atrial fibrillation (CMS/HCC) Atrial fibrillation Type 2 diabetes mellitus with diabetic neuropathy, unspecified (CMS/HCC) documented in this encounter [facility] HealthcareEvaluation note* Diagnosis Routine general medical examination at health care facility- Primary Routine general medical examination at a health care facility ACP (advance care planning) Other specified counseling Encounter for immunization Type 2 diabetes mellitus with diabetic neuropathy, without long-term current use of insulin (HCC) Paroxysmal atrial fibrillation (HCC) Atrial fibrillation Mixed hyperlipidemia Mixed hyperlipidemia Primary hypertension Unspecified essential hypertension Emphysema due to udvlh-7-uftxwvkygmo deficiency (HCC) Other emphysema Diastolic dysfunction Unspecified heart disease Benign essential hypertension Essential hypertension, benign Prostate cancer screening Special screening for malignant neoplasm of prostate Degeneration of intervertebral disc of lumbar region with discogenic back pain and lower extremity pain Memory loss documented in this encounter [facility] HealthcareHospital course Narrative No data available for this section [facility] Hospital Discharge instructions No data available for this section [facility] Progress note No data available for this section [facility] Summary Purpose Family History No Family [...] section and content) DATE CREATED AUTHOR 07/30/2018 [facility] DATE CREATED AUTHOR AUTHOR'S ORGANIZ ATION 01/10/2023 [facility] DATE CREATED AUTHOR AUTHOR'S ORGANIZ ATION 09/24/2024 [facility] DATE CREATED AUTHOR AUTHOR'S ORGANIZ ATION 09/28/2024 [facility] DATE CREATED AUTHOR AUTHOR'S ORGANIZ ATION 10/02/2024 [facility] DATE CREATED AUTHOR AUTHOR'S ORGANIZ ATION 10/04/2024 [facility] DATE CREATED AUTHOR AUTHOR'S ORGANIZ ATION 10/07/2024 [facility] DATE CREATED AUTHOR AUTHOR'S ORGANIZ ATION 10/24/2024 [facility] DATE CREATED AUTHOR AUTHOR'S ORGANIZ ATION 11/18/2024 [facility] DATE CREATED AUTHOR AUTHOR'S ORGANIZ ATION 07/27/2025 [facility] DATE CREATED AUTHOR AUTHOR'S ORGANIZ ATION 09/13/2025 [facility] Care Teams (unrecognized sec tion and content) Team MemberRelationshipSpecialtyStart DateEnd Date Antony Zamarripa MD [address] [place] [address] PCP - GeneralInternal Medicine03/13/23 Antony Zamarripa MD [address] [place] [address] PCP - [facility]01/04/24Te MemberRelationshipSpecialtyStart DateEnd Antony Zamarripa MD [address] [place] [address] PCP - [facility]03/13/23 Antony Zamarripa MD [address] [place] [address] [facility] - [facility]01/04/24Te MemberRelationshipSpecialtyStart DateEnd Antony Zamarripa MD [address] [place] [address] PCP - [facility]03/13/23 Antony Zamarripa MD [address] [place] [address] [facility] - [facility]01/04/24Te MemberRelationshipSpecialtyStart DateEnd Antony Zamarripa MD [address] [place] [address] PCP - [facility]03/13/23 Antony Zamarripa MD [address] [place] [address] [facility]01/04/24Te MemberRelationshipSpecialtyStart DateEnd Date Antony Zamarripa MD [address] [place] [address] PCP - [facility]03/13/23 Antony Zamarripa MD [address] [place] [address] PCP - [facility]01/04/24Te MemberRelationshipSpecialtyStart DateEnd Antony Zamarripa MD [address] [place] [address] PCP - [facility]03/13/23 Antony Zamarripa MD [address] [place] [address] [facility]01/04/24Te MemberRelationshipSpecialtyStart DateEnd Antony Zamarripa MD [address] [place] [address] PCP - [facility]03/13/23 Antony Zamarripa MD [address] [place] [address] [facility]01/04/24Te MemberRelationshipSpecialtyStart DateEnd Antony Zamarripa MD [address] [place] [address] PCP [facility]03/13/23 Antony Zamarripa MD [address] [place] [address] PCP [facility]01/04/24Te MemberRelationshipSpecialtyStart DateEnd Date Antony Zamarripa MD [address] [place] [address] PCP - [facility]03/13/23 Antony Zamarripa MD [address] [place] [address] [facility] - [facility]01/04/24Team MemberRelationshipSpecialtyStart DateEnd Antony Zamarripa MD [address] [place] [address] PCP - [facility]03/13/23 Antony Zamarripa MD [address] [place] [address] [facility] - [facility]01/04/24Team MemberRelationshipSpecialtyStart DateEnd Antony Zamarripa MD [address] [place] [address] [facility] - [facility]03/13/23 Antony Zamarripa MD [address] [place] [address] [facility] - [facility]01/04/24Team MemberRelationshipSpecialtyStart DateEnd Antony Zamarripa MD [address] [place] [address] PCP - [facility]03/13/23 Antony Zamarripa MD [address] [place] [address] [facility] - [facility]01/04/24 Juliann Wood, BUSINESS OFFICE COORDINATOR [address] [place] [address] Social Work[facility]Edward P. [facility] Medicine8/Team MemberRelationshipSpecialtyStart DateEnd Date Antony Zamarripa MD [address] [place] [address] PCP - GeneralInternal Medicine03/13/23 Antony Zamarripa MD [address] [facility] [address] [place] [address] PCP - [facility]01/04/24 Juliann Wood, BUSINESS OFFICE COORDINATOR [address] [place] [address] Social WorkerFamily Medicine Reason for Visit (unrecogniz [...] BE BASED ON THE PRIMARY CLINICAL RECORDS. [employer] provides no warranty or guarantee of the accuracy or completeness of information in this document.
[2025-09-17 09:22] LABS: Lactate/Lactic Acid 1.7 mmol/L (0.4-2.0)
--- NOTE | 2025-09-17 09:30 | CM.NOTE ---
Rounds made with Dr. Kelly, discussed plan of care with pt. No discharge today, continue treatment as ordered.
[2025-09-17] MEDS: AMLODIPINE BESYLATE 5 MG TABLET PO (09:54)
[2025-09-17] MEDS: CARVEDILOL 12.5 MG TABLET PO ×2 (09:54→21:11)
[2025-09-17] MEDS: ATORVASTATIN CALCIUM 40 MG TABLET PO (09:54)
[2025-09-17] MEDS: FOLIC ACID 1 MG TABLET PO (09:54)
[2025-09-17] MEDS: APIXABAN 5 MG TABLET PO ×2 (09:54→21:11)
[2025-09-17 10:08] LABS: Glucose 536 mg/dL (74-106)
[2025-09-17] MEDS: INSULIN ASPART 300 UNIT/3 ML PEN 10 UNIT SUBQ (10:19)
--- NOTE | 2025-09-17 11:26 | PM.IMHP1 ---
Internal Medicine - H&P: HPI History of Present Illness Chief complaint: MUSCLE SPASM, hyperglycemia, myoclonic jerking Narrative: Mr Madrigal is a 75-year-old male with a past medical historyOf diabetes and Parkinson's disease who presented to the hospital early this morning with a chief complaint of jerking and muscle spasms of his left side and just feeling overall out of it . He had been feeling this way for a couple of days, reportedly the brought him in this morning because it was getting much worse. He denies any pain with this. He reports not taking his oral diabetic medications but he does report compliance with the remainder of his other medications. He also reports noncompliance with his diet, he has been urinating quite a bit recently and also drinking a lot of fluid to try and compensate as he feels dehydrated. He says his stools have been hard lately but denies constipation. He does have a recent diagnosis of Parkinson's, he has been seeing neurology in their office for what sounds like about 2 years or so, he was started on amantadine in the past but was was never officially told it was for Parkinson's until recently.. I did not witness any spasms today during my H&P however they were much more present and frequent in the emergency room this morning, he says his whole left arm would twitch or spasm and it would go down his left side and into the left leg. He denies any pill-rolling tremors. When asked about how often he checks his blood sugar at home, he says that his dog ate his kit quite a while ago and he cannot remember the last time he checked his blood sugar. Review of Systems ROS Status of ROS 10 or more systems reviewed and unremarkable except as noted in history and below [facility] Medical History (Updated 09/17/25 @ 12:20 by RADHA HILARIO DO) Diabetes ?E11.9 - Type 2 diabetes mellitus without complications (ICD-10) Hyperlipidemia ?E78.5 - Hyperlipidemia, unspecified (ICD-10) Hypertension ?I10 - Essential (primary) hypertension (ICD-10) Surgical History (Updated 09/17/25 @ 08:02 by Kayece Soliz RN) H/O elbow surgery ?Z98.890 - Other specified postprocedural states (ICD-10) H/O cardiac ablation ?Z98.890 - Other specified postprocedural states (ICD-10) Social History Highest level of school completed/degree received: some college, no degree Little interest or pleasure in doing things: not at all Feeling down, depressed, or hopeless: not at all Meds Home Medications and Allergies Home Medications ?Medication ?Instructions ?Recorded ?Confirmed ?Type alpha-1 proteinase inhib.(hum) 6,000 mg IV .weekly 08/18/24 09/17/25 History 1,000 mg (+/-)/20 mL IV solution (Prolastin-C) apixaban 5 mg tablet (Eliquis) 5 mg PO Q12H 08/18/24 09/17/25 History atorvastatin 40 mg tablet 40 mg PO DAILY 08/18/24 09/17/25 History carvedilol 12.5 mg tablet 12.5 mg PO Q12H 08/18/24 09/17/25 History celecoxib 200 mg capsule 200 mg PO Q24H 08/18/24 09/17/25 History folic acid 1 mg tablet 1 mg PO DAILY 08/18/24 09/17/25 History glimepiride 2 mg tablet 1 mg PO BIDWM 08/18/24 09/17/25 History sitagliptin phosphate 50 mg tablet 50 mg PO BID 08/18/24 09/17/25 History (Januvia) albuterol sulfate 90 mcg/actuation 2 inh inhalation Q6H PRN shortness 09/17/25 09/17/25 History aerosol inhaler of breath or wheezing amantadine HCl 100 mg tablet 100 mg PO .QD 09/17/25 09/17/25 History amlodipine 5 mg tablet 5 mg PO .qd 09/17/25 09/17/25 History benazepril 40 mg tablet 40 mg PO .qd 09/17/25 09/17/25 History budesonide 160 mcg-glycopyr 9 2 inh inhalation BID 09/17/25 09/17/25 History mcg-formot 4.8 mcg/actuation HFA inhaler (Breztri Aerosphere) empagliflozin 12.5 mg-metformin 1 tab PO BID 09/17/25 09/17/25 History 1,000 mg tablet (Synjardy) Allergies Allergy/AdvReac Type Severity Reaction Status Date / Time Penicillins Allergy Unknown Swelling Verified 09/17/25 05:22 of Lip/Tongue/Throat Exam Narrative Exam Narrative: General: Awake alert, no acute distress, his is present at bedside. HEENT: His mouth is extremely dry, there does appear to be some cobblestoning of his tongue, his uvula sticks to the back of his tongue Neck: supple no masses, no lymphadenopathy CVS: regular rate and rhythm, no murmurs or gallops Respiratory: clear to auscultation bilaterally, no wheezing or crackles, symmetric expansion GI: soft, nondistended, nontender, positive bowel sounds Extremity: moves all extremities,, he is neurovascularly intact throughout his upper and lower extremities, sensation to light touch is intact other than the lateral aspect of his right leg which she says has been chronic for most of his life from when he was in the . His strength is 5 out of 5 throughout his upper and lower extremities. No focal weakness. There is some cogwheel tremors noted of his left hand during my H&P however when asked specifically he denies this. There is also some cogwheel rigidity noted which to me is worse in the right arm when compared to the left. Neuro: AOx3, CN II-VII intact. Moves all extremities in all planes of motion. Skin: dry, intact no rashes or lesions Constitutional Vital Signs, click to edit/add: Last Vital Signs Temp 97.8 F 09/17/25 08:22 Pulse 80 09/17/25 08:22 Resp 18 09/17/25 08:22 BP 160/93 H 09/17/25 08:22 Pulse Ox 92 L 09/17/25 08:22 O2 Del Method Room Air 09/17/25 08:22 Internal Medicine - H&P: Reslt Labs Labs: Short CBC 09/17/25 Range/Units 05:40 WBC 7.4 (4.0-11.0) 10^3/uL Hgb 15.9 (14.0-18.0) g/dL Hct 46.3 (42.0-54.0) % Plt Count 223 (150-450) 10^3/uL BMP 09/17/25 09/17/25 09/17/25 05:40 07:37 09:35 Sodium 130 L 134 L Potassium 4.6 4.3 Chloride 93 L 98 Carbon Dioxide 24.7 25.6 BUN 21.0 H 20.0 H Creatinine 1.90 H 1.77 H Glucose 832 H* 601 H* 536 H* Calcium 9.6 9.2 Liver Function 09/17/25 Range/Units 05:40 Total Bilirubin 0.6 (0.2-1.0) mg/dL AST 7 L (15-37) U/L ALT 25 (16-63) U/L Alkaline Phosphatase 152 H (46-116) U/L Albumin 4.0 (3.4-5.0) g/dL Urine 09/17/25 Range/Units 06:31 Urine Color Lt. yellow (YELLOW) Urine Clarity Clear (CLEAR) Urine pH 5.5 (5.0-9.0) Ur Specific [place] 1.010 (1.005-1.025) Urine Protein Negative (NEG/TRACE) mg/dL Urine Glucose (UA) >=1000 A (NEGATIVE) mg/dL Assessment and Plan Assessment and Plan (1) Hyperglycemia: Assessment and Plan: ? Admit to [facility], inpatient status ? Secondary to noncompliance with his medication and diet ? Glucose was over 800 on admission, urinalysis had over 1000 glucose noted ? Corrected sodium for his glucose was 148 ?He received 2 L IV fluid in emergency room, 10 units of regular IV insulin and 15 units of long-acting glargine ? Upon arrival to the floor he received another 10 units aspart ? His BMP is significant with dehydration secondary to hyperglycemia, JUANI ? Clear liquid diet, once his glucose is under control will initiate a diabetic diet, likely for dinner. ? Every 2 hours glucose checks ? Will likely give another dose of 10 units aspart at the 1400 glucose check. ? Checking A1c ? Hold his p.o. antidiabetic medications (2) Myoclonic disorder: Assessment and Plan: ? Secondary to electrolyte abnormality and side effect of amantadine ? Monitor ? He did not have any tremors or spasms or jerks while I was in the room ? Resume his amantadine tomorrow morning (3) Diabetes: Assessment and Plan: See above (4) Hypertension: Assessment and Plan: Resume his home medications, amlodipine 5 mg, benazepril 40, carvedilol 12.5 twice daily (5) Hyperlipidemia: Assessment and Plan: ? Resume his statin dose (6) Parkinson disease: Assessment and Plan: ? Outpatient follow-up (7) Hypernatremia: Assessment and Plan: Repeat BMP tomorrow morning (8) Acute kidney injury superimposed on CKD: Assessment and Plan: ? Presenting creatinine 1.9, his baseline appears to be 1.5. ? Secondary to dehydration/hyperglycemia ? Trend morning BMP Plan ? DVT prophylaxis addressed with home dose of Eliquis ? Clear liquid, diabetic diet starting for dinner ? Full code
[2025-09-17] MEDS: INSULIN ASPART 300 UNIT/3 ML PEN SUBQ ×3 (14:05→21:13)
[2025-09-17] MEDS: INSULIN ASPART 300 UNIT/3 ML PEN 8 UNIT SUBQ ×2 (17:35→21:13)
[2025-09-17] MEDS: INSULIN GLARGINE 300 UNIT/3 ML INSULN.PEN 30 UNIT SQ (21:15)
[2025-09-18] VITALS: BP 92/45; PULSE 73; TEMP 36.7; O2SAT 94
[2025-09-18 04:00] VITALS: BP 134/82; PULSE 72; TEMP 36.4; O2SAT 94
--- OUTSIDE RECORDS SUMMARY | 2025-09-18 06:46 | XMS_ITS | Continuity of Care Document ---
Author Name [facility] Organization [facility] Care Team Providers Care Taxicab Coordinator Name Role Phone [facility] Unavailable Unavailable Immunizations Combined list of available immunizations from the Department of Defense and Veterans Affairs facilities. Immunization Series Date Given Administered By Site Reaction Lot Number CVX Code Drug Horticulturalist Status Comments Source COVID-19, mRNA, LNP-S, PF, 30 mcg/0.3 mL dose 2020 RAY, [employer] [place] (PFR) Not Given COVID-19, mRNA, LNP-S, PF, 30 mcg/0.3 mL dose DoD COVID-19, mRNA, LNP-S, PF, 30 mcg/0.3 mL dose 2020 [place] (PFR) Not Given COVID-19, mRNA, LNP-S, [...]
--- OUTSIDE RECORDS SUMMARY | 2025-09-18 06:48 | XMS_ITS | Clinical Summary ---
Author Organization [facility] Address [address] [place] [address] Care Team Providers Care Street Inspector Name Role Phone Antony Zamarripa MD Primary Care Provider [phone] Antony Zamarripa MD Unavailable [phone] Allergies Active AllergyReactionsCriticalityNoted DateCommentsPenicillin Reggie ReddyArsh [...] mcg) by mouth Daily 90 tablet ctive Rkhnoll-Qihhfqjepnt-Djuhvivupb (Breztri Aerosphere) 160-9-4.8 MCG/ACT aerosol Inhale 2 [...] 2 puffs every 6 (six) hours if musplb285Active Active Problems ProblemNoted DateDiagnosed FzvaTejvy-8-pzvrhyszyck vsenrjbxwo85/07/2024Emphysema due to cfwas-4-qgmpuxyyefr /07/2024Folic acid wqwrnuxbri70/15/2024 JESS (obstructive sleep apnea)03/09/2024Hypersomnia due to medical condition 03/09/20248162Pauwlmahtqgp18/05/1834Uxbuuwthmwikstj84/05/2024Short-term memory loss 01/07/2024Tremor of both hands01/07/2024SVT (supraventricular tachycardia) 12/11/2023bnormal CT of the chest08/23/2023Lung jwosovi5308/23/2023bdominal aortic aneurysm without xgeqrdj8507/25/2023bdominal aortic pcwbtji7307/25/2023 Benign essential mkgomxxoeuim10/20/2023enign prostatic hyperplasia without urinary ahypvknncrv03/20/2023ardiac wjsmkeyyps80/20/2023ervical radiculopathy 07/25/2023ervical kaxhaznylrz77/20/2023hronic qeoevmaskqys69/20/2023iabetic peripheral neuropathy associated with type 2 diabetes ocsxsdbh26/20/2023 Diastolic wbjrkahsven10/20/2023isplacement of cervical intervertebral disc 07/25/2023Uncontrolled type 2 diabetes mellitus with ilgebrdqbjhaj10/20/2023 Hypertensive heart disease without heart hpxptna1207/25/2023Impingement syndrome of shoulder jbtlmi2207/25/2023LVH (left ventricular hypertrophy)07/25/2023Mild nonproliferative diabetic retinopathy associated with type 2 diabetes mellitus 07/25/2023Obesity (BMI 30-39.9)07/25/2023Other allergic fwdeqbmj27/20/2023 Paroxysmal atrial knhmahsbnzpk07/20/2023Rectus vnargyfka19/20/2023Urinary thiytijjc61/20/2023Ventricular premature beats07/25/2023Mixed hyperlipidemia 04/09/20202975Onwccbcbhdxz34/22/2018 Resolved Problems ProblemNoted DateDiagnosed DateResolved DateDysmetabolic syndrome X07/25/2023 08/15/2024ure dnlssooiurvmeirhcytx76/20/202310/11/2024 Encounters DateTypeDepartmentCare CtwtGqlrzkvuees11/09/2025linisync Result Encounter [facility] External Department Unsolicited Provider, Generic External Data 5Abstract [facility] [place] [facility] [address] [place] [address] Antony Zamarripa MD 07/27/2025 10:30 AM EDTOffice Visit [facility] [place] [address] [place] [address] Antony Zamarripa MD Routine general medical examination at health care facility (Primary Dx); ACP (advance care planning); Encounter for immunization; Type 2 diabetes mellitus with diabetic neuropathy, without long-term current use of insulin (HCC); Paroxysmal atrial fibrillation (HCC); Mixed hyperlipidemia ; Primary hypertension ; 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 [address] [facility] [address] [place] [address] Antony Zamarripa MD 07/27/20253209Iezqkj54/21/2025Patient Outreach [facility] [address] [place] [address] Juliann Wood LSW from Last 3 Months Immunizations ImmunizationAdministration DatesNext DueInfluenza, High Dose Seasonal, Preservative Free07/27/2025,10/13/2024,07/24/2019Influenza, High-dose Seasonal, Quadrivalent, Preservative Free2022,07/16/2020Influenza, Seasonal, Quadrivalent, Johrlnayvy13/18/2024Influenza, injectable, lydfxcloospg18/19/2016 Influenza, injectable, quadrivalent, preservative free08/22/2018,08/28/2017, 08/23/2015Influenza, seasonal, intradermal, preservative free08/25/2014 Pneumococcal Conjugate PCV 13007/16/2020Pneumococcal Polysaccharide PPSV23 06/27/2019Td (adult), 5 Lf tetanus toxoid, preservative free, dgzgezbi17/01/2000 Zoster, Ymtmkxwmyjo49/09/2021,07/16/2020 Family History Medical HistoryRelationNameCommentsHeart diseaseFatherHypertensionFatherCOPD MotherLung diseaseMotherHeart [...] relatives?Twice a week07/25/2023How often do you attend adventism or presybeterian services?Patient /20/2023o you belong to any clubs or organizations such as adventism groups, unions, fraternal or athletic batool ups, or school groups?Patient bohxvdtp19/20/2023How often do you attend meetings of the clubs or organizations you belong to?Patient dpquymgc24/20/2023re you , , , , never , or living with a partner? Zavvrqm0507/25/2023UDIT-CAnswerDate RecordedQ1: How often do you have a drink containing alcohol?Never07/25/2023verage Number of DrinksNot on file07/25/2023 Frequency of Binge DrinkingNot on file07/25/2023Overall Financial Resource Strain (CARDIA)AnswerDate RecordedHow hard is it for you to pay for the very basics like food, housing, medical care, and heating?Hard07/25/2023HQ-2Answer Date RecordedPatient Health Questionnaire-2 Uzbhd743[facility] [place] of Occupational Health - Occupational Stress QuestionnaireAnswerDate [...] pay the mortgage or rent on time?Patient nmcctpn8407/25/2023Number of Places Lived in the Last YearNot on file07/25/2023In the last 12 months, was there a time when you did not have a steady place to sleep or slept in [facility] (including now)?Patient ufdfzry4907/25/2023Sex and Gender InformationValueDate RecordedSex Assigned at BirthNot on fileLegal Sex Male01/17/2023 7:18 PM EDTGender IdentityNot on fileSexual OrientationNot on file Last Filed Vital Signs Vital SignReadingTime TakenCommentsBlood Bmxiozfn511/6809 10:26 AM EDT Lutoo325207/27/2025 10:26 AM DWKUnkvmingqzj01.6 ??C (97.8 ??F)11/20/2023 9:57 AM ESTRespiratory Bfja521403/10/2024 1:32 PM EDTOxygen Qxjwdelnfe59%07/27/2025 10:26 AM EDTInhaled Oxygen Concentration--Jwuehd266 kg (233 lb)07/27/2025 10:26 AM EDT Macpeu939.3 cm (5' 11 )07/27/2025 10:26 AM EDTBody Mass Index32.509 10:26 AM EDT Plan of Treatment DateTypeDepartmentCare Team (Latest Contact Info)Trhqlhkkwoi44/08/2025 10:00 AM ESTOffice Visit [facility] [place] [facility] [address] [facility] [[email or web address] [address] [place] [address] Antony Zamarripa MD [address] [facility] [address] [place] [address] 12/17/2025 11:30 AM ESTOffice Visit [facility] [place] [facility] [address] [facility] [address] [place] [address] Rafael Escalante MD [address] [address] Health MaintenanceDue DateLast DoneCommentsCT Kxkjlwsgijga1950Colonoscopy 1950FIT1950FOBT08/03/19507845Qhngwkxyiahdl1950COVID-19 Vaccine (3 - Pfizer risk series)512/07/2024, 04/08/2021, 1Colorectal Cancer Ensrgmykt42/04/2025FIT-DNA, 2Diabetes: Hemoglobin A1C5007/27/2025, 11/12/2024, 08/07/2024, Additional history existsDiabetes: Urine Protein Fjfbmhtcv46/08/68780211/12/2024, 08/24/2023, 06/19/2019, Additional history existsDiabetes: Retinopathy Cmahsqlyh97/07/2026 06/11/2025, 02/28/2024, 09/20/2020, Additional history existsMedicare Annual Wellness (AWV), 07/26/2023, 07/24/2022, Additional history existsPneumococcal Vaccine: 65+ MalznJtdzthkie63/11/2020, 06/27/2019Influenza ZvgrctyEavjtciqs89/22/2025, 10/13/2024, 11/22/2023, Additional history exists Procedures Procedure NamePriorityDate/TimeAssociated DiagnosisCommentsCA ECHO DOPPLER PWYHXTCJ34/09/2025 10:06 AM EDT POCT GLYCATED HEMOGLOBIN, RFLTATnfksav92/22/2025 10:55 AM EDT Type 2 diabetes mellitus with diabetic neuropathy, without long-term current use of insulin (HCC) DIABETIC RETINOPATHY SCREENING - OU - BOTH EVZCEhwkzhq82/07/2025 MICROALBUMIN / CREATININE URINE YIWXVZxcsrfs21/08/2025 11:11 AM EST Type 2 diabetes mellitus with hyperglycemia, without long-term current use of insulin (HCC) LAB COLOGUARD?? COLON CANCER KUUFVWDyvwwrt54/04/2022 from Last 3 Months or Most Recently Relevant to Health Maintenance Results * CA ECHO DOPPLER COMPLETE (08/13/2025 10:06 AM EDT)Anatomical RegionLaterality ModalityOtherSpecimen (Source)Anatomical Location / LateralityCollection Method / VolumeCollection TimeReceived Time08/13/2025 10:06 AM EDT Narrative 08/13/2025 10:07 AM EDT [facility] ?[address] ? [place] [address] ? Cardiology Report ? Signed ? Patient: VINAYAK MADRIGAL ? MR#: [id number] ?? : 1950 ?Acct:[id number] ?? Age/Sex: 75 / M ?ADM Date: 08/13/25 ?? Loc: CARD ? Attending Dr: Radha Lockwood M.D. ? Ordering Physician: Radha Lockwood M.D. ?? Date of Service: 08/13/25 ?? Procedure(s): CA echo doppler complete ?? Accession Number(s): [id number] ? cc: ANTONY ZAMARRIPA ; Radha Lockwood M.D. ? Patient Name: ? VINAYAK MADRIGAL ? MR#: [id number] ? : 1950 ? Exam Date: 08/13/2025 [...] 1007 ? DD/ 1006 ? TD/TT: ? Dsp Engineer: Procedure Note Radiology, Radiologist, MD - 08/13/2025 [place] [address] Cardiology Report Signed Patient: VINAYAK MADRIGAL WMR#: [id number] : 1950Acct:[id number] Age/Sex: 75 / MADM Date: 08/13/25 Loc: CARD Attending Dr: Radha Lockwood M.D. Ordering Physician: Radha Lockwood M.D. Date of Service: 08/13/25 Procedure(s): CA echo doppler complete Accession Number(s): [id number] cc: ANTONY ZAMARRIPA ; Radha Lockwood M.D. Patient Name: VINAYAK MADRIGAL MR#: [id number] : 1950 Exam Date: 08/13/2025 Ordering Doctor: [...] VALDEZ Signed By:08/13/25 1007 DD/ 1006 TD/TT: Dsp Engineer: Authorizing ProviderResult TypeResult StatusGeneric External Data Provider CLINISYNC IMAGINGFinal Result * POCT Glycated hemoglobin, total (07/27/2025 10:55 AM EDT)ComponentValueRef RangeTest MethodAnalysis TimePerformed AtPathologist SignatureHemoglobin A1C 7.3Specimen (Source)Anatomical Location / LateralityCollection Method / Volume Collection TimeReceived AyfwHncpt73/22/2025 10:55 AM EDT Narrative Authorizing ProviderResult TypeResult [...] Ref RangeTest MethodAnalysis TimePerformed AtPathologist SignatureCREATININE, RANDOM AYPHG6063 - 320 mg/dLQUESTALBUMIN, URINE0.6See Note: mg/dLQUESTComment: Reference [...] specimen obtained by clean catch procedure / Siubtzq2711/12/2024 11:11 AM EST11/12/2024 11:11 AM EST Narrative [facility] - 11/13/2024 2:53 PM EST SPLIT 08/19/2024 FROM [id number] Resulting Agency Comment Performing Organization Information ?Site ID: [id number] ?Name: [facility] ?Address: [address] [place] [address], [address] [place] [id number] ?Director: Jalil Garcia MD Authorizing ProviderResult TypeResult [...] Arzate. et al, N Engl J Med 2014;370(14):2287-6564) The normal value (reference range) for this assay is negative. COLOGUARD RE-SCREENING RECOMMENDATION: Periodic colorectal cancer screening is an important part ofpreventive healthcare for asymptomatic individuals at average risk for colorectal cancer. ??Following a negative Cologuard result, the [place] Cancer Society and U.S. Multi-Society Task Force screening guidelines recommend a Cologuard re-screening interval of 3 years. References: [place] [employer] Society Guideline for Colorectal Cancer Screening: https://www.cancer.or g/cancer/mngqm-dlowiq-xjiaxf/kfnjdpuxm-yjvxfygmk-yfbuatx/acs-recommendations.htm elissa; Dylan HULL, Krissy KNAPP, Sue CARCAMO, Colorectal Cancer Screening: Recommendations for Physicians and Patients from the U.S. Multi-Society Task Force on Colorectal Cancer Screening , Am J Gastroenterology 2017; 112:8682-4686. TEST DESCRIPTION: Composite algorithmic analysis of stool [...] Arzate. et al, N Engl J Med 2014;370(14):9400-5461.) Cologuard may produce a false negative or false positive result (no colorectal cancer or precancerous polyp present at colonoscopy follow up). A negative Cologuard test result does not guarantee the absence of CRC or advanced adenoma (pre-cancer). The current Cologuard screening interval is every 3 years. ([place] Cancer Society and U.S. Multi-Society Task Force). Cologuard performance data in a 10,000 patient pivotal study using colonoscopy as the reference method can be accessed at the following location: www.DistalMotion.HypeSpark/results. Additional description of the Cologuard test process, [...] MemberRelationshipSpecialtyStart DateEnd Date Antony Zamarripa MD [address] [facility] [address] [place] [address] PCP - GeneralInternal Medicine03/13/23 Antony Zamarripa MD [address] [facility] [address] [place] [address] PCP - ACO [facility]01/04/24
--- OUTSIDE RECORDS SUMMARY | 2025-09-18 06:48 | XMS_ITS | Encounter Summary ---
Author Organization [facility] Address [address] [place] [address] Care Team Providers Care Supervisory Geographer Name Role Phone Antony Zamarripa MD Primary Care Provider [phone] Antony Zamarripa MD Unavailable [phone] Juliann Wood COMBATANT DIVER OFFICER Unavailable [phone] Encounter Details DateTypeDepartmentCare Team (Latest Contact Info)Lbjghtplbvt16/17/2024Clinisync Result Encounter [facility] External Department Unsolicited Provider, [...] relatives?Twice a week07/25/2023How often do you attend pentecostal or latter day services?Patient apgdibpz50/20/2023o you belong to any clubs or organizations such as pentecostal groups, unions, fraYour Survival or athletic groups, or school groups? Patient pbrovsbt87/20/2023How often do you attend meetings of the clubs or organizations you belong to?Patient mtziztwz79/20/2023re you , , , , never , or living with a partner?Tmedlzx7107/25/2023 AUDIT-CAnswerDate RecordedQ1: How often do you have a drink containing alcohol? Never07/25/2023verage Number of DrinksNot on file07/25/2023Frequency of Binge DrinkingNot on file07/25/2023Overall Financial Resource Strain (CARDIA)Answer Date RecordedHow hard is it for you to pay for the very basics like food, housing, medical care, and heating?Hard07/25/2023HQ-2AnswerDate RecordedPatient Health Questionnaire-2 Zjncc952Finkane [place] human resource s[place] of Occupational Health - Occupational Stress QuestionnaireAnswerDate [...] pay the mortgage or rent on time?Patient psowaqs3807/25/2023Number of Places Lived in the Last YearNot on file07/25/2023In the last 12 months, was there a time when you did not have a steady place to sleep or slept in ashelter (including now)? Patient wxpesic2107/25/2023Sex and Gender InformationValueDate RecordedSex Assigned at BirthNot on fileLegal SdkXfig9801/17/2023 7:18 PM EDTGender Identity Not on fileSexual OrientationNot on filedocumented as of this encounter Functional Status * Over the past 2 weeks, how often have you been bothered by any of the following problems?QuestionAnswerDate of AssessmentAuthorLittle interest or pleasure in doing thingsNot at all07/27/2025 10:00 AM Sandra Gaspar LPN documented as of this encounter Plan of Treatment DateTypeDepartmentCare Team (Latest Contact Info)Jrxjdwoqfit35/08/2025 10:00 AM ESTOffice Visit [facility] [place] [facility] [address] [facility] [address] [place] [address] Antony Zamarripa MD [address] [facility] [address] [place] [address] 12/17/2025 11:30 AM ESTOffice Visit [facility] [place] [facility] [address] [facility] [address] [place] [address] Rafael Escalante MD [address] [facility] [address] [id number] documented as of this encounter Procedures Procedure NamePriorityDate/TimeAssociated DiagnosisCommentsCA ECHO DOPPLER YIZESHMW75/17/2024 3:19 PM EST documented in this encounter Results * CA ECHO DOPPLER COMPLETE (12/22/2023 3:19 PM EST)Anatomical RegionLaterality ModalityOtherSpecimen (Source)Anatomical Location / LateralityCollection Method / VolumeCollection TimeReceived Time12/22/2023 3:19 PM EST Narrative 12/22/2023 3:20 PM EST [facility] ?[address] ? [place], [facility] ? Cardiology Report ? Signed ? Patient: YOUNG,VINAYAK W ? MR#: [id number] ?? : 1950 ?Acct:[id number] ?? Age/Sex: 73 / M ?ADM Date: 12/20/23 ?? Loc: CARD ? Attending Dr: Pantera Tomlin M.D. ? Ordering Physician: Pantera Tomlin M.D. ?? Date of Service: 12/20/23 ?? Procedure(s): CA echo doppler complete ?? Accession Number(s): [id number] ? cc: ANTONY ZAMARRIPA ; Pantera Tomlin M.D. ? Patient Name: ? VINAYAK YOUNG ? MR#: [id number] ? : 1950 ? Exam Date: 12/20/2023 [...] ?12/22/230 ? DD/ 1519 ? TD/TT: ? Laboratory Animal Facility Supervisor: Procedure Note Radiology, Radiologist, - 12/22/2023 [place] [address] Cardiology Report Signed Patient: VINAYAK MADRIGAL WMR#: [id number] : 1950Acct:[id number] Age/Sex: 73 / MADM Date: 12/20/23 Loc: CARD Attending Dr: Pantera Tomlin M.D. Ordering Physician: Pantera Tomlin M.D. Date of Service: 12/20/23 Procedure(s): CA echo doppler complete Accession Number(s): [id number] cc: ANTONY ZAMARRIPA ; Pantera Tomlin M.D. Patient Name: VINAYAK MADRIGAL MR#: [id number] : 1950 Exam Date: 12/20/2023 Ordering Doctor: [...] HARVEY Signed By:12/22/23 1520 DD/ 1519 TD/TT: Laboratory Animal Facility Supervisor: Authorizing ProviderResult TypeResult StatusGeneric External Data Provider CLINISYNC IMAGINGFinal Result documented in this encounter Visit Diagnoses Not on filedocumented in this encounter Care Teams Team MemberRelationshipSpecialtyStart DateEnd Date Antnoy Zamarripa MD [address] [facility] [address] [place] [address] PCP - GeneralInternal Medicine03/13/23 Antony Zamarripa MD [address] [facility] [address] [place] [address] PCP - ACO [place]01/04/24 Juliann Wood DEVIKA [address] [place] [address] Social WorkerFamily Medicinedocumented as of this encounter
--- OUTSIDE RECORDS SUMMARY | 2025-09-18 06:48 | XMS_ITS | Encounter Summary ---
Author Organization [facility] Address [address] [place] [address] Care Team Providers Care Jack [employer] All Trades Name Role Phone Antony Zamarripa MD Primary Care Provider [phone] Encounter Details DateTypeDepartmentCare Team (Latest Contact Info)Mxogpyukifa73/07/2025Telephone [facility] [address] [place] [address] Cleopatra Hatfield MA Social History Tobacco UseTypesPacks/DayYears UsedDateSmoking Tobacco: FormerCigarettes Smokeless Tobacco: NeverAlcohol UseStandard Drinks/WeekCommentsNot Currently0 (1 standard drink = 0.6 oz pure alcohol)UT Safety & EnvironmentAnswerDate Recorded Fear of Current or Ex-PartnerNot on file12/27/2023Emotionally AbusedNot on file 4Physically AbusedNot on file12/27/2023Sexually AbusedNot on file 4Physically or Sexually AbusedNot on file12/27/2023Sex and Gender InformationValueDate RecordedSex Assigned at OqqojSxuc08/09/2025 9:02 AM EDT Legal ZnoQbbt8405/04/2022 12:07 AM EDTGender SvlmoadxAaie73/09/2025 9:02 AM EDT Sexual OrientationHeterosexual or Gjqfesfl43/09/2025 9:02 AM EDTdocumented as of this encounter [...] MemberRelationshipSpecialtyStart DateEnd Date Antony Zamarripa MD [address] [facility] [address] [place] [address] PCP - General12/04/22documented as of this encounter
--- OUTSIDE RECORDS SUMMARY | 2025-09-18 06:48 | XMS_ITS | Clinical Summary ---
Author Organization [facility] Address [address] [facility], [address] [place] [address] Care Team Providers Care Stock Raiser Name Role Phone Antony Zamarripa MD Primary Care Provider [phone] Social History Tobacco UseTypesPacks/DayYears UsedDateSmoking Tobacco: Never AssessedSex and Gender InformationValueDate RecordedSex Assigned at BirthNot on fileLegal Sex Male12/15/2012 10:57 AM ESTGender IdentityNot on fileSexual OrientationNot on file Plan of Treatment DateTypeDepartmentCare Team (Latest Contact Info)Zznrojfnqcl41/30/2025 11:00 AM ESTOffice Visit [facility] [address] [place] [address] [address] [place] [address] [place] [address] [place] [address] [address] [place] [address] CHRISTIANO PT - SOBHealth MaintenanceDue DateLast DoneCommentsDepression Screen 1962Hepatitis C bqtlow8008/03/1968DTaP/Tdap/Td vaccine (1 - Tdap)1969 Rzwqet4108/03/19900059Izuhstcusou68/29/1995Colorectal Cancer Daekig3108/03/1995FIT/FOBT: Average risk1995Fecal-DNA (Cologuard): Average risk1995 Sigmoidoscopy/CT stlunoyxlqte04/29/1995Pneumococcal 50+ years Vaccine (1 of 1 - [...] MemberRelationshipSpecialtyStart DateEnd Date Antony Zamarripa MD [address] [address] PCP - GeneralInternal Jyybimds78/6/25
--- OUTSIDE RECORDS SUMMARY | 2025-09-18 06:48 | XMS_ITS | Clinical Summary ---
Author Organization [facility] Address [address] [place] [address] Care Team Providers Care Channel Lip Stiffener Insoles Name Role Phone Antony Zamarripa MD Primary Care Provider [phone] Allergies Active AllergyReactionsCriticalityNoted DateCommentsPenicillinsRash,UnknownLow 12/27/2020 Medications MedicationSigDispense QuantityRefillsLast FilledStart DateEnd DateStatus apixaban (Eliquis) 5 mg tablet Take 5 mg by mouth in the morning and at bedtime.Active celecoxib (CeleBREX) 200 mg capsule Take 200 mg by mouth in the morning. As jgpxou6511/21/2022ctive glimepiride (Amaryl) 2 mg tablet Take 2 [...] Active Problems ProblemNoted DateDiagnosed DateNonrheumatic mitral valve jezzhiwcjdsfo15/03/2025 Yvxnnzl7511/17/2024Feeling of incomplete bladder tpzlaxur52/13/2025Frequent sywtjmeke12/13/2025Gross ykqycpdoq05/13/2025Weak urinary yybpoh7111/17/2024 Emphysema due to wqxen-4-opdxprjsjkt cqnreunprk38/07/2024Folic acid deficiency 06/19/20248668Kdjim-5-zqtzrscsfxt wzmwybeljv09/14/2024OSA (obstructive sleep apnea) 03/13/2024Hypersomnia due to medical jlbyozakr53/05/2024Hypersomnolence 03/09/20240107Przxxjcqkdbv99/05/2024Short-term memory lossTremor of both handsSVT (supraventricular tachycardia)12/11/[address] of the chest/04/2024Lung ztckbze72 Abdominal aortic aneurysm without /bdominal aortic /iabetic peripheral neuropathy associated with type 2 diabetes /04/2024Hypertensive heart disease without heart gtvusvu32LVH (left ventricular hypertrophy)07/25/2023 12/11/2023Mild nonproliferative diabetic retinopathy associated with type 2 diabetes mxxevwhx85Obesity (BMI 30-39.9)/04/2024 Uncontrolled type 2 diabetes mellitus with /20/202302/04/2024 Mixed wdkmmllhtgxzur93/05/2020Hyperglycemia due to type 2 diabetes mellitus 03/13/2019Diastasis of nyaewy3609/18/2018Impingement syndrome of shoulder region 09/18/2018Atrial gselfhlmyzcz29/11/2018Ventricular premature beats07/09/2018 3Diabetes dyczzbrj63/29/8715Obqnfmfmoxql46/22/2018Diastolic dysfunction 06/26/2018Cardiac uahqkztdtv94/31/2018Chronic dhgmxfcmtqsy30/13/2018Urinary pklpfbozc89/16/2018Cervical wxbfeawzapy56/17/2018Cervical radiculopathy 11/21/2017Displacement of cervical intervertebral disc11/21/2017Allergic rhinitis due to scxsdmav45/27/2016Benign essential bagnoorsprbq79/27/2016 Dysmetabolic syndrome X12/01/2015Pure ukkdpyhimfmrqgjlpjoz52/27/2016Type 2 diabetes mellitus without iqdcasghxcpa16enign prostatic hyperplasia without urinary qeqdcjoxxdf72 Encounters DateTypeDepartmentCare CgyxWdrbblpbmso13/07/2025Telephone [facility] [address] [place] [facility] [place] [address] Cleopatra Hatfield MA 08/07/2025 10:20 AM EDTOffice Visit [facility] [address] [place] [facility] [place] [address] Eder Cavazos MD Paroxysmal atrial fibrillation (CMS/HCC) (Primary Dx); Abdominal aortic aneurysm (AAA) without rupture, unspecified part; Nonrheumatic mitral valve regurgitation; Primary hypertension; Mixed hhomihvxudjaxr32/03/2025Telephone [facility] [address] [place] [facility] [place] [address] Anna Maldonado MA 08/07/2025Refill [facility] [address] [place] [facility] [place] [address] Anna Maldonado MA Essential hypertension (Primary Dx)from Last 3 Months Immunizations ImmunizationAdministration DatesNext DueInfluenza, High Dose Seasonal, Preservative Free07/24/2019,07/23/2019,08/22/2018Influenza, High-dose Seasonal, Quadrivalent, Preservative Free2022,07/16/2020Influenza, injectable, epqibbiiblpc67/19/2016Influenza, injectable, quadrivalent, preservative free 08/22/2018,08/28/2017,08/23/2015Influenza, seasonal,quadrivalent, preservative free08/25/2014Pneumococcal Conjugate PCV 13007/16/2020Pneumococcal Polysaccharide UVY738406/27/2019Td (adult), 5 Lf tetanus toxoid, preservative free, adsorbed 11/05/1999Zoster, Chbyuuaerpv96/09/2021,07/16/2020 Family History Medical HistoryRelationNameCommentsCoronary artery diseaseBrotherStrokeBrother Coronary [...] and Gender InformationValueDate Recorded Sex Assigned at RogylAtgq53/09/2025 9:02 AM EDTLegal CyzFiuc7705/04/2022 12:07 AM EDTGender IbrhdjrnTzvy93/09/2025 9:02 AM EDTSexual OrientationHeterosexual or Csuamdig51/09/2025 9:02 AM EDT Last Filed Vital Signs Vital SignReadingTime TakenCommentsBlood Zgmeurcn264/9108/07/2025 10:31 AM EDT Qwzik850108/07/2025 10:31 AM NAJFcroajodtrf96.4 ??C (97.5 ??F)03/13/2024 11:15 AM EDTRespiratory Osyr029303/13/2024 3:10 PM EDTOxygen Ipvsvjjxdk93%08/07/2025 10:31 AM EDTInhaled Oxygen Concentration--Lcbklz768 kg (231 lb)08/07/2025 10:31 AM EDT Yfivqu810.3 cm (5' 11 )08/07/2025 10:31 AM EDTBody Mass Index32.221 10:31 AM EDT Plan of Treatment Health MaintenanceDue DateLast DoneCommentsCT Fipkvplxwsnv1950Colonoscopy 1950Diabetes: Hemoglobin A1C1950FOBT1950Medicare Annual Wellness (AWV)08/03/19504895Ibtrgqycfybcu1950Diabetes: Retinopathy Screening 1960Depression Supxuohrp73/29/1962Adult Dmyayez98/01/Fall Risk Fgzzjemog71/29/8392YWP992COVID-19 Vaccine (3 - Pfizer risk series), 04/08/2021, 1Colorectal Cancer Screening 08/08/2025FIT-DNA2Diabetes: Urine Protein Tuezctyfb09/08/2026 11/12/2024, 3Pneumococcal Vaccine: 50+ GcwzaTlcbmcheb96/11/2020, 06/27/2019Zoster LgdgjddqYcurpsdtj23/09/2021, 07/16/2020Influenza Vaccine Hiimbmdno49/22/2025, 10/13/2024, 11/22/2023, Additional history existsHIB VaccinesAged OutNo [...] MemberRelationshipSpecialtyStart DateEnd Date Antony Zamarripa MD [address] [facility] [address] [place] [address] [facility] - General12/04/22
--- OUTSIDE RECORDS SUMMARY | 2025-09-18 06:49 | XMS_ITS | Encounter Summary ---
Author Organization [facility] Address [address] [place] [address] Care Team Providers Care Cylinder Block Mechanic Name Role Phone Antony Zamarripa MD Primary Care Provider [phone] Antony Zamarripa MD Unavailable [phone] Juliann Wood FIBERGLASS GRINDER Unavailable [phone] Encounter Details DateTypeDepartmentCare Team (Latest Contact Info)Xdqsxyzcbau60/23/2024Clinisync Result Encounter [facility] Unsolicited Provider, [...] relatives?Twice a week07/25/2023How often do you attend muslim or cheondoism services?Patient /20/2023o you belong to any clubs or organizations such as muslim groups, unions, Markafoni or athletic batool ups, or school groups?Patient exhmoehp48/20/2023How often do you attend meetings of the clubs or organizations you belong to?Patient keglpknh73/20/2023re you , , , , never , or living with a partner? Cdaafmu5707/25/2023UDIT-CAnswerDate RecordedQ1: How often do you have a drink containing alcohol?Never07/25/2023verage Number of DrinksNot on file07/25/2023 Frequency of Binge DrinkingNot on file07/25/2023Overall Financial Resource Strain (CARDIA)AnswerDate RecordedHow hard is it for you to pay for the very basics like food, housing, medical care, and heating?Hard07/25/2023HQ-2Answer Date RecordedPatient Health Questionnaire-2 Fepqi899[place] of Occupational Health - Occupational Stress QuestionnaireAnswerDate [...] pay the mortgage or rent on time?Patient dyuyfhy4507/25/2023Number of Places Lived in the Last YearNot on file07/25/2023In the last 12 months, was there a time when you did not have a steady place to sleep or slept in ashelter (including now)?Patient zlezhbv4207/25/2023Sex and Gender InformationValueDate RecordedSex Assigned at BirthNot [...] Plan of Treatment DateTypeDepartmentCare Team (Latest Contact Info)Kpqegteisih90/08/2025 10:00 AM ESTOffice Visit [facility] [address] [facility] [address] [place] [phone] Antony Zamarripa MD [address] [facility] [address] [place] [address] 12/17/2025 11:30 AM ESTOffice Visit [facility] [place] [facility] [address] [facility] [address] [place] [address] Rafael Escalante MD [address] [facility] [address] [address] documented as of this encounter Procedures Procedure NamePriorityDate/TimeAssociated DiagnosisCommentsRT PULMONARY FUNCTION TEST05/27/2024 8:16 AM EDT documented in this encounter Results * RT PULMONARY FUNCTION TEST (05/27/2024 8:16 AM EDT)Anatomical RegionLaterality ModalityOtherSpecimen (Source)Anatomical Location / LateralityCollection Method / VolumeCollection TimeReceived Time05/27/2024 8:16 AM EDT Narrative 05/27/2024 5:06 PM EDT [facility] ?[address] ? [place] [address] ? Respiratory Report ? Signed ? Patient: YOUNG,LUCIO W ? MR#: [id number] ?? : 1950 ?Acct:[id number] ?? Age/Sex: 73 / M ?ADM Date: 05/27/24 ?? Loc: CARD ? Attending Dr: Gigi Singleton D.O. ? Ordering Physician: Gigi Singleton D.O. ?? Date of Service: 05/27/24 ?? Procedure(s): RT pulmonary function test ?? Accession Number(s): [id number] ? cc: ?[facility] ? Test Date: ?2024-05-27 ?? Pat Name: ? LUCIO YOUNG ?Department: ? Room: ? - ?? Gender: ? Male ? Inspector Penetrant: ?? Nara Walker,AIRPLANE TUBE BUILDER ?? : ?1950 ? Requested By: Gigi Singleton ?? Order Number: [id number] ?Reading MD: ?? Gigi Singleton ? Interpretive Statements ?? Pulmonary function testing was completed according to ATS criteria. Findings ?? were considered accurate and reproducible. Both pre- and post-bronchodilator ?? values utilized for spirometry. ? Spirometry (based on pre-bronchodilator values): ?? -FEV1/FVC: Low normal @ 72% ?? -FEV1: Normal @ 81% ?? -FVC: Normal @ 82% ?? -SWR00-43%: Reduced @ 76% ?? -There is no [...] 1706 ? DD/ 0816 ? TD/TT: ? Assembler Billiard Table: Procedure Note Radiology, Radiologist, - 05/27/2024 [place] [address] Respiratory Report Signed Patient: LUCIO MADRIGAL WMR#: [id number] : 1950Acct:[id number] Age/Sex: 73 / MADM Date: 05/27/24 Loc: CARD Attending Dr: Gigi Singleton D.O. Ordering Physician: Gigi Singleton D.O. Date of Service: 05/27/24 Procedure(s): RT pulmonary function test Accession Number(s): [id number] cc: [facility] Test Date: 2024-05-27 Pat Name: LUCIO MADRIGAL Department: Room: - Gender: Male Inspector Penetrant: Nara Walker RRT : 1950 Requested By: Gigi Singleton Order Number: [id number] Wayne MD: Gigi Singleton Interpretive Statements Pulmonary function testing was completed according to ATS criteria.Findings were considered accurate and reproducible. Both pre- andpost-bronchodilator values utilized for spirometry. Spirometry (based on pre-bronchodilator values): -FEV1/FVC: Low normal @ 72% -FEV1: Normal @ 81% -FVC: Normal @ 82% -OGO06-56%: Reduced @ 76% -There is no significant [...] D.O. Signed By:05/27/24 1706 DD/ 0816 TD/TT: Assembler Billiard Table: Authorizing ProviderResult TypeResult StatusGeneric External Data Provider [facility]IS[facility]NC IMAGINGFinal Result documented in this encounter Visit Diagnoses Not on filedocumented in this encounter Care Teams Team MemberRelationshipSpecialtyStart DateEnd Date Antony Zamarripa MD [address] [facility] [address] [place] [address] PCP - GeneralInternal Medicine03/13/23 Antony Zamarripa MD [address] [facility] [address] [place] [address] PCP - ACO Reach01/04/24 Juliann Wood, FIBERGLASS GRINDER [address] [place] [address] Social WorkerFaflly Medicine06/17//documented as of this encounter
--- OUTSIDE RECORDS SUMMARY | 2025-09-18 06:49 | XMS_ITS | Patient Health Record ---
Author Organization [facility] [place] Address [address] [place] [address] Care Team Providers Care Process Technician Name Role Phone Antony Zamarripa MD Primary Care Provider Unavailab escobar AreliGigi Unavailable [phone] Allergies Allergen (clinical drug ingredient) Drug/Non Drug [...] mcg/0.3 mL Unknown 10/13/2024 Administered Flu, Fluad (30546) 65 yrs + High Dose Seasonal (5879-0544)Ccbdpcl3210/13/2024 AdministeredFlu, Fluad (33186) 65 yrs+, single-dose syringe (9703-4389)Unknown 4AdministeredPneumococcal (Pneumovax 23)Nxyjlqo2506/27/2019Administered Pneumococcal (Prevnar 13)Yfrtbrs5807/16/20204530BpqqsfmwsxosPFAL-SOF-4 (COVID 19 Pfizer 30mcg/0.3mL)Vjkcicx04/04/2021AdministeredZOSTER (SHINGLES) VACCINE (HZV) Rvjjmcb81/09/2021Administered Social History Tobacco Use: Social History Observation Description Date Details (start date - stop date) Former Smoker NA - NA Tobacco Control (Standard) Question Answer Notes Tobacco use: Former smoker How long has it been since you last smoked?Greater than 10 yearsAdditional Findings: Tobacco aka-kmcySg-vdhbx cigarette smoker (20-30/day) Problems Problem Type SNOMED Code ICD Code Onset Dates Problem Status W/U Status Risk Notes Problem Qboyk-7-pitmbgwjzhe deficiency (45937854) Thlsd-3-cohrjnqagnp deficiency (E88.01) ActiveconfirmedProblemCentrilobular emphysema (65076364)Centrilobular emphysema (J43.2)ActiveconfirmedProblemBronchiolectasis (77552671)Bronchiectasis, uncomplicated (J47.9)ActiveconfirmedProblemPulmonary fibrosis (33653611) Pulmonary fibrosis, unspecified (J84.10)ActiveconfirmedProblemObstructive sleep apnea syndrome (38122726)JESS (obstructive sleep apnea) (G47.33)Activeconfirmed ProblemDiabetes mellitus type 2 (disorder) (73011887)DM2 (diabetes mellitus, type 2) (E11.9)ActiveconfirmedProblemMultiple pulmonary nodules (516651215) Multiple pulmonary nodules (R91.8)ActiveconfirmedProblemAtrial fibrillation (89196305)PAF (paroxysmal atrial fibrillation) (I48.0)ActiveconfirmedProblemEx- tobacco user (finding) (334124062)History of tobacco abuse (Z87.891)Active yeefxbsebAdsgtpsXigzz-0-ewzudtngehb deficiency (21740717)AAT (hglra-7-rtaubgdnlei) deficiency (E88.01)Activeconfirmed Vital Signs Heart Rate 67 /min 05/19/2025 Zldviydtbtw80.0 degrees Phmnfroeqw44/15/2025Respiratory Rate18 /min05/19/2025 Makirtfb18 %05/19/2025lood pressure wfstxlcur54 mm Hg05/19/20250877Txgfda55 in 05/19/2025lood pressure ccsfewtt122 mm Hg05/19/20252771Rgvzlg370.4 lbs05/19/2025MI 32.06 kg/m205/19/2025 Encounters Encounter Location Date Provider Diagnosis Pulmonary Medicine [address] [address] 12/10/2024 Gigi Samsa Centrilobular emphys lashawn J43.2 ; AAT (nlnwr-8-nfjnqnzfyju) deficiency E88.01 ; Pulmonary fibrosis, unspecified J84.10 ; Multiple pulmonary nodules R91.8 ; Bronchiectasis, uncomplicated J47.9 ; PAF (paroxysmal atrial fibrillation) I48.0 ; DM2 (diabetes mellitus, type 2) E11.9 ; JESS (obstructive sleep apnea) G47.33 and History of tobacco abuse Z87.[address] [address] 05/19/2025 Gigi Samsa Centrilobular emphys lashawn J43.2 ; AAT (fbdap-7-ywjzjuvfoez) deficiency E88.01 ; Pulmonary fibrosis, unspecified J84.10 ; Multiple pulmonary nodules R91.8 ; Bronchiectasis, uncomplicated J47.9 ; PAF (paroxysmal atrial fibrillation) I48.0 ; DM2 (diabetes mellitus, type 2) E11.9 ; JESS (obstructive sleep apnea) G47.33 and History of tobacco abuse Z87.891 [facility] [place] [address] [place] [address] 10/20/2024 Gigi Samsa Centrilobular emphys lashawn J43.2 Pulmonary Medicine [address] [place] [address] 11/24/2024 [facility] Pulmonary Medicine [address] [facility] [place] [address]/14/2025 [facility] [address] [place] [address] 05/14/2025[facility] Assessments Encounter Date Diagnosis (ICD Code) Assessment [...] ContinueBreztri for now. Continue Prolastin therapy. 12/10/2024AT (khmwr-6-bokhzkglzer) deficiency (ICD-10 - E88.01) He continues to [...] current therapy. 4Centrilobular emphysema (ICD-10 - J43.2)5AAT (fllki-0-rirmxibnhgt) deficiency (ICD-10 - E88.01) Continue Prolastin. PFT [...] ablation 03/13/2024. Remains in NSR. Off amiodarone. 05/19/2025ronchiectasis, uncomplicated (ICD-10 - J47.9) Mild traction bronchiectasis [...] End Date [place] [address] [place] [address] [id number] Avril Madrigalelf - patient is the hhiqmfk70 2015[facility] [employer] [address] [place] [id number], JanSelf - patient is the insured Medical (General) History Medical History History ICD Code Centrilobular emphysema J43.2 AAT (ophel-0-mhkhkrqdkhc) deficiency E88 .01 Multiple pulmonary nodules R91.8 DM2 (diabetes mellitus, type 2) E11.9 JESS (obstructive sleep apnea) G47.33 HTN (hypertension) I10 HLD (hyperlipidemia) E78.5 PAF (paroxysmal atrial fibrillation) I48 .0 Nasal polyps J33.9 History of tobacco abuse Z87.891 Surgical History Surgery Date(Month/Year) sinus surgery vasectomyappendectomybursectomy
[2025-09-18] MEDS: INSULIN ASPART 300 UNIT/3 ML PEN SUBQ ×2 (07:22→11:05)
[2025-09-18] MEDS: INSULIN ASPART 300 UNIT/3 ML PEN 8 UNIT SUBQ (07:26)
[2025-09-18 07:31] VITALS: BP 155/75; PULSE 83; TEMP 36.4; O2SAT 94
[2025-09-18] MEDS: FOLIC ACID 1 MG TABLET PO (08:45)
[2025-09-18] MEDS: AMLODIPINE BESYLATE 5 MG TABLET PO (08:45)
[2025-09-18] MEDS: CARVEDILOL 12.5 MG TABLET PO (08:45)
[2025-09-18] MEDS: APIXABAN 5 MG TABLET PO (08:45)
[2025-09-18] MEDS: ATORVASTATIN CALCIUM 40 MG TABLET PO (08:46)
[2025-09-18 10:14] LABS: Anion Gap 15.1; Blood Urea Nitrogen 24.0 mg/dL (7.0-18.0); Calcium 9.0 mg/dL (8.5-10.1); Carbon Dioxide 24.0 mmol/L (21.0-32.0); Chloride 101 mmol/L (98-107); Estimated GFR (African America >60 (>=60 mL/min/1.73m^2); Estimated GFR (Non-African Ame 54 (>=60 mL/min/1.73m^2); Glucose 339 mg/dL (74-106); Magnesium 2.0 mg/dL (1.8-2.4); Potassium 4.1 mmol/L (3.5-5.1); Sodium 136 mmol/L (136-145)
--- NOTE | 2025-09-18 10:42 | SWNOTE1 ---
STEVE did see that Physical therapy did recommend SNF yesterday. STEVE called Sara in physical therapy and spoke with her about therapy today. Pt did do much and walked 200 feet in the hallway, no loss of balance. Case management will speak to patient about home health or outpt and see if he is interested.
[2025-09-18] MEDS: LISINOPRIL 20 MG TABLET 40 MG PO (10:58)
[2025-09-18] MEDS: AMANTADINE HCL 100 MG CAPSULE PO (10:58)
[2025-09-18] MEDS: PANTOPRAZOLE SODIUM 40 MG TABLET.DR PO (10:58)
[2025-09-18] MEDS: DAPAGLIFLOZIN 5 MG TABLET 10 MG PO (11:13)
[2025-09-18] MEDS: IBUPROFEN 400 MG TABLET PO (11:13)
[2025-09-18 11:18] VITALS: BP 124/66; PULSE 74; TEMP 36.9; O2SAT 91
--- NOTE | 2025-09-18 11:21 | CM.NOTE ---
Rounds made with Dr. Kelly, pt will discharge to home. CM will send referral to [facility]. Pt will f/u with PCP. Dr. Kelly will order diabetic supplies. Pt and denies need for HH services at discharge or nurse to come in for vitals and BS. is diabetic and verbalizes knowledge of care and insulin. Both are in agreement for [facility] referral to be sent.
--- NOTE | 2025-09-18 11:25 | CM.NOTE ---
CM completed diabetic form for continued education through [facility], signed by Dr. Klely. Faxed to [facility], they will reach out to patient to schedule appt. Pt and verbalize understanding. Script for diabetic supplies given to pt.
--- NOTE | 2025-09-18 11:33 | P.DS_ITS ---
DS: Providers Provider Date of admission: 09/17/25 08:08 Primary care physician: BRADEN ZAMARRIPA Consults: 09/17/25 09:58 Physical Therapy Eval and Treat Routine Reason for consultation: eval and treat Discharging clinician: RADHA HILARIO Anticipated date of discharge: 09/18/25 DS: Diagnosis Discharge Diagnosis (1) Hyperglycemia: (2) Myoclonic disorder: (3) Diabetes: (4) Hypertension: (5) Hyperlipidemia: (6) Parkinson disease: (7) Hypernatremia: (8) Acute kidney injury superimposed on CKD: DS: Summary Hospital Course Hospital Course: Mr Madrigal is a 75-year-old male who was admitted the hospital the morning of September 17 with a chief complaint of weakness and muscle spasms and dehydration. In the emergency room he was found to have hyperglycemia with no evidence of DKA. He does report noncompliance with his diabetic medications however he has compliance with his other medications. He received IV regular insulin and aspart in the emergency room and his glucose was checked acute 2- hour the first 12 hours of admission. He received a couple more doses of aspart throughout the day until his glucose return to the 2-300 range. He was then given a diabetic diet and started on aspart 8 units with a sliding scale with each meal, he was given glargine 30 units nightly the evening of admission.His creatinine was elevated indicating some dehydration was present on admission as well, his baseline kidney function is roughly 1.4-1.5 per our records, he was 1.9 on presentation. He received IV fluids the first 24 hours of admission and the following morning, the his creatinine was normal at 1.3. His oral antidiabetic medications were held upon admission due to his JUANI, they were resumed the morning of September 18. I had a very long talk with him and his , she is also a diabetic and checks her blood sugar often and is on insulin. I instructed that I will be discharging from the hospital today and he should continue taking his oral antidiabetics however I will be giving him glucose m onitoring kit to check his sugar for each meal and will also be discharging him with a sliding scale insulin. His uses insulin with each meal and is more than capable of helping him out with the sliding scale as she is comfortable with this on her own. He will be discharged with follow-up for diabetic education and also for his primary care physician. As for his left sided tremors/spasm which was present on admission, I did not witness any of these, it was likely due to electrolyte abnormalities as he was hyponatremic when corrected for glucose, JUANI, and his amantadine likely played a role as well as this is cleared by the kidneys so he had what I assume was an accumulation of his amantadine. I did not witness any tremors, the admitting RN did witness 1. He denied having any overnight and had 0 the day of the . Recommend following up with his doctor as mentioned above. Time Spent with Patient Time attestation: Total time spent providing and/or coordinating discharge services: Exam Narrative Exam Narrative: General: Awake alert, no acute distress HEENT: head atraumatic, normocephalic, moist mucous membranes Neck: supple no masses, no lymphadenopathy CVS: regular rate and rhythm, no murmurs or gallops Respiratory: clear to auscultation bilaterally, no wheezing or crackles, symmetric expansion GI: soft, nondistended, nontender, positive bowel sounds with no organomegaly Extremity: moves all extremities, no restrictions of movements, no calf tenderness, no edema noted, there is some cogwheel rigidity which for me was worse on the right than the left, he did have some trouble fully relaxing his left arm for this exam. I did also notice a slight pill-rolling tremor in the left side. Neuro: AOx3, CN II-VII intact. Moves all extremities in all planes of motion. Skin: dry, intact no rashes or lesions Constitutional Vital Signs, click to edit/add: Last Vital Signs Temp 98.5 F 09/18/25 11:18 Pulse 74 09/18/25 11:18 Resp 18 09/18/25 04:00 BP 124/66 09/18/25 11:18 Pulse Ox 91 L 09/18/25 11:18 O2 Del Method Room Air 09/18/25 11:18 DS: Data Data Completed and Pending Labs on day of discharge: Labs from last 24 hours 09/18/25 09/18/25 09/18/25 11:02 09:38 07:17 Sodium 136 Potassium 4.1 Chloride 101 Carbon Dioxide 24.0 Anion Gap 15.1 BUN 24.0 H Creatinine 1.30 Est GFR ( Amer) >60 Est GFR (Non-Af Amer) 54 L BUN/Creatinine Ratio 18.5 Glucose 339 H Estimat Average Glucose Hemoglobin A1c Calcium 9.0 Phosphorus 3.0 Magnesium 2.0 POC Glucose 302 H 284 H 09/17/25 09/17/25 09/17/25 19:59 15:59 13:56 Sodium Potassium Chloride Carbon Dioxide Anion Gap BUN Creatinine Est GFR ( Amer) Est GFR (Non-Af Amer) BUN/Creatinine Ratio Glucose Estimat Average Glucose Hemoglobin A1c Calcium Phosphorus Magnesium POC Glucose 326 H 332 H 340 H 09/17/25 09/17/25 11:56 05:40 Sodium Potassium Chloride Carbon Dioxide Anion Gap BUN Creatinine Est GFR ( Amer) Est GFR (Non-Af Amer) BUN/Creatinine Ratio Glucose Estimat Average Glucose 280 Hemoglobin A1c 11.4 H Calcium Phosphorus Magnesium POC Glucose 370 H Discharge Plan Discharge Disposition: Home, Self-Care Discharge Medications: New insulin aspart U-100 [Novolog FlexPen U-100 Insulin] 100 unit/mL (3 mL) Insulin Pen 3 - 15 unit subcut ACHS 30 Days Qty: 15 0RF Continued amlodipine 5 mg tablet 5 mg PO .qd benazepril 40 mg tablet 40 mg PO .qd albuterol sulfate 90 mcg/actuation HFA aerosol inhaler 2 inh INHALATION Q6H PRN (Reason: shortness of breath or wheezing) Synjardy 12.5-1,000 mg tablet 1 tab PO BID Breztri Aerosphere 160-9-4.8 mcg/actuation HFA aerosol inhaler 2 inh INHALATION BID amantadine HCl 100 mg tablet 100 mg PO .QD Eliquis 5 mg tablet 5 mg PO Q12H carvedilol 12.5 mg tablet 12.5 mg PO Q12H celecoxib 200 mg capsule 200 mg PO Q24H folic acid 1 mg tablet 1 mg PO DAILY Januvia 50 mg tablet 50 mg PO BID atorvastatin 40 mg tablet 40 mg PO DAILY glimepiride 2 mg tablet 1 mg PO BIDWM Prolastin-C 1,000 mg (+/-)/20 mL solution 6,000 mg IV .weekly Activity: increase activity as tolerated Print Language: Nigerien Patient Instructions: Insulin Aspart Protamine/Insulin Aspart (By injection) Forms: Portal Instructions Follow Up Appointments: Dr Zamarripa, Sunday at 11:00 Cora Leung NP,
--- NOTE | 2025-09-21 11:58 | CM.DCFOLLOWU ---
1st attempt 09/21/25, no answer
--- NOTE | 2025-09-22 10:36 | CM.DCFOLLOWU ---
Person spoke with:patient How are you feeling? well, at his PCP follow up, they moved it up one day How is your pain?none Did you understand your discharge instructions?yes Do you have any questions about your discharge instructions?no Were you given any prescriptions at discharge?yes Were you able to get your prescriptions filled?yes Do you understand how to take your medications as ordered?yes Do you have any questions about your follow up appointment and do you plan to keep your follow up appointment? No questions, follow up today and he has not heard from [facility]. Advised to call the number listed in discharge paperwork if he does not hear from them in a few days. Is there anything else that you would like to discuss? no Questions/Comments/Concerns/Other:none
== END 2025-09-18 13:15 | disposition home or self-care (01) | DRG 638 ==
LOC: ER 07:07 → MS 18:00
PROVIDERS: Admitting Provider Internal Medicine; Emergency Provider Emergency Medicine; PCP Internal Medicine; Visit Provider Internal Medicine
DX: E11.65 Type 2 diabetes mellitus with hyperglycemia (principal); E87.0 Hyperosmolality and hypernatremia; N17.9 Acute kidney failure, unspecified; E87.1 Hypo-osmolality and hyponatremia; E86.0 Dehydration; G25.3 Myoclonus; G20.A1 Parkinson's disease without dyskinesia, without mention of fluctuations; I12.9 Hypertensive chronic kidney disease with stage 1 through stage 4 chronic kidney disease, or unspecified chronic kidney disease; E11.22 Type 2 diabetes mellitus with diabetic chronic kidney disease; Z91.118 Patient's noncompliance with dietary regimen for other reason; N18.9 Chronic kidney disease, unspecified; E78.5 Hyperlipidemia, unspecified; Z91.148 Patient's other noncompliance with medication regimen for other reason; I48.91 Unspecified atrial fibrillation; Z79.01 Long term (current) use of anticoagulants; M62.838 Other muscle spasm; T42.8X5A Adverse effect of antiparkinsonism drugs and other central muscle-tone depressants, initial encounter; T38.3X6A Underdosing of insulin and oral hypoglycemic [antidiabetic] drugs, initial encounter; Z79.899 Other long term (current) drug therapy; Z79.84 Long term (current) use of oral hypoglycemic drugs
CPT/HCPCS: 36415; 70450; 80048; 80053; 81001; 82009; 82947; 82948; 83036; 83605; 83735; 83930; 84100; 84484; 85025; 93005; 96374; 97161; 97530; 99285; J1817; J3360

== ENCOUNTER 2025-09-30 10:58 | Outpatient (RCR) | payer MEDICARE, OTHER, SELFPAY ==
[2025-09-09 11:06] VITALS: BP 142/87; PULSE 97; TEMP 36.3; O2SAT 94
[2025-09-09] MEDS: PROTEINASE INHIBITOR IV (11:32)
[2025-09-09] MEDS: ALPHA IV (11:32)
--- NOTE | 2025-09-09 11:55 | PC.NURSE ---
1132: IV Prolastin initiated at this time. Pt. denies needs
[2025-09-23 11:05] VITALS: BP 146/66; PULSE 104; TEMP 36; O2SAT 98
[2025-09-23] MEDS: ALPHA IV (11:26)
[2025-09-23] MEDS: PROTEINASE INHIBITOR IV (11:26)
[2025-09-30 11:00] VITALS: BP 157/75; PULSE 73; TEMP 36.4; O2SAT 94
[2025-09-30] MEDS: ALPHA IV (11:10)
[2025-09-30] MEDS: PROTEINASE INHIBITOR IV (11:10)
== END 2025-10-04 23:59 | disposition home or self-care (01) ==
LOC: INF 10:58
PROVIDERS: PCP Internal Medicine; Visit Provider Internal Medicine
DX: E88.01 Alpha-1-antitrypsin deficiency (principal); J43.2 Centrilobular emphysema
CPT/HCPCS: 96365; J0256

== ENCOUNTER 2025-11-04 10:50 | Outpatient (RCR) | payer MEDICARE, OTHER, SELFPAY ==
[2025-10-07] MEDS: ALPHA IV (11:15)
[2025-10-07] MEDS: PROTEINASE INHIBITOR IV (11:15)
[2025-10-07 11:16] VITALS: BP 125/66; PULSE 58; TEMP 36.6; O2SAT 93
[2025-10-14 10:55] VITALS: BP 136/79; PULSE 70; TEMP 36.7; O2SAT 93
[2025-10-14] MEDS: PROTEINASE INHIBITOR IV (11:01)
[2025-10-14] MEDS: ALPHA IV (11:01)
[2025-10-27 10:50] VITALS: BP 154/73; PULSE 75; TEMP 36.5; O2SAT 92
[2025-10-27] MEDS: PROTEINASE INHIBITOR IV (10:55)
[2025-10-27] MEDS: ALPHA IV (10:55)
[2025-11-04 10:50] VITALS: BP 157/82; PULSE 62; TEMP 36.6; O2SAT 96
[2025-11-04] MEDS: ALPHA IV (11:00)
[2025-11-04] MEDS: PROTEINASE INHIBITOR IV (11:00)
== END 2025-11-04 23:59 | disposition home or self-care (01) ==
LOC: INF 10:50
PROVIDERS: PCP Internal Medicine; Visit Provider Internal Medicine
DX: E88.01 Alpha-1-antitrypsin deficiency (principal); J43.2 Centrilobular emphysema
CPT/HCPCS: 96365; J0256